=== PATIENT | female | born 1935 | race Caucasian/White ===

== ENCOUNTER → 2019-09-02 15:14 | Outpatient (CLI) | payer MEDICARE, MEDICAID, SELFPAY ==
[2019-09-02 15:21] LABS: Adenovirus F 40/41, stool Not Detected (NotDetected); Astrovirus Not Detected (NotDetected); Campylobacter Not Detected (NotDetected); Cryptosporidium Not Detected (NotDetected); Cyclospora Cayetanesis Not Detected (NotDetected); Entamoeba histolytica Not Detected (NotDetected); Enteroaggregative E coli Not Detected (NotDetected); Enteropathogenic E coli Not Detected (NotDetected); Enterotoxigenic E coli Not Detected (NotDetected); Giardia lamblia Not Detected (NotDetected); Norovirus Not Detected (NotDetected); Plesimonas Shigalloides, PCR Not Detected (NotDetected); Rotavirus A Not Detected (NotDetected); Salmonella, PCR Not Detected (NotDetected); Sapovirus Not Detected (NotDetected); Shiga-like toxin E coli Not Detected (NotDetected); Shigella Enterovasive E coli Not Detected (NotDetected); Vibrio Cholerae Not Detected (NotDetected); Vibrio, PCR Not Detected (NotDetected); Yersinia Entercolitica, PCR Not Detected (NotDetected)
[2019-09-02 15:52] LABS: Occult Blood,Stool Positive (Negative)
[2019-09-02 18:31] LABS: Clostridium Difficile A/B, PCR Detected (NotDetected)
== END ==
PROVIDERS: Visit Provider Emergency Medicine
DX: R19.7 Diarrhea, unspecified (principal); A04.72 Enterocolitis due to Clostridium difficile, not specified as recurrent; K92.1 Melena
CPT/HCPCS: 82272; 87507; G0328

== ENCOUNTER → 2020-04-09 15:51 | Outpatient (CLI) | payer MEDICARE, MEDICAID, SELFPAY ==
[2020-04-11 11:02] LABS: Covid-19 Nasal PCR Sendout P&C POSITIVE
== END ==
LOC: LAB 15:52 → LAB.DROPOF 15:52
PROVIDERS: Visit Provider Nurse Practitioner Family
DX: U07.1 COVID-19 (principal)
CPT/HCPCS: U0004

== ENCOUNTER 2020-07-05 15:20 | Emergency (ER) | payer MEDICARE, MEDICAID, SELFPAY ==
[2020-07-05 15:21] VITALS: BP 120/56; PULSE 81; RESP 16; TEMP 36.6; O2SAT 97; BMI 38.6
--- NOTE | 2020-07-05 15:23 | CT_ITS ---
PROCEDURE: CT CERVICAL SPINE WO CON CLINICAL INDICATION: trauma Neck injury with pain, contusion/abrasion or hematoma, cervical sprain/strain the COMPARISON: No exams were available for comparison TECHNIQUE: Axial images obtained with sagittal and coronal reformats. All CT scans at the facility use one or more dose reduction, viz: automated exposure control, ma/kV adjustment per patient size (including targeted exams where dose is matched to indication, i.e. head), or iterative reconstruction technique. Axial spiral CT scanning performed of the cervical spine beginning at the base of the skull and continuing to the upper T-spine. 3-D multiplanar reconstruction with 3-D manipulation of volumetric data set in image rendering was completed by the radiologist and/or technologist with the supervision of the radiologist on independent workstation. FINDINGS: Normal alignment. No acute fracture or dislocation. Mild multilevel cervical spondylosis. Cervical curvature convex right with mild contour clockwise rotation. C2-C3: Mild degenerative disc disease. C3-C4: Unremarkable. C4-C5: Mild degenerative disc disease with uncovertebral hypertrophy and bilateral lateral recess and foraminal narrowing. C5-C6: Degenerate disc disease with endplate hypertrophic changes with canal stenosis and bilateral foraminal narrowing. C6-C7: 3 mm anterolisthesis of C6. Uncovertebral and facet hypertrophy with bilateral foraminal narrowing and bilateral lateral recess narrowing. Anterior osteophytes are present. C7-T1: 3 mm anterolisthesis of C7 with mild degenerative disc disease Lung apices are clear. The right lobe of the thyroid gland is enlarged with heterogeneous density. There is scattered small nodes in the neck. Small amount fluid is present in the left mastoid sinus. IMPRESSION: Cervical spondylosis as described above. No acute fracture. Other nonacute findings as prescribed above Dictated by: Jesus Gagnon MD 07/05/2020 16:33 Jesus Gagnon MD in [facility] 07/05/2020 16:33
--- NOTE | 2020-07-05 15:23 | CT_ITS ---
PROCEDURE: CT HEAD/BRAIN WO CON CLINICAL INDICATION: head injury Head injury with headache/pain, contusion, abrasion or hematoma COMPARISON: No exams were available for comparison TECHNIQUE: Axial images obtained. All CT scans at the facility use one or more dose reduction, viz: automated exposure control, ma/kV adjustment per patient size (including targeted exams where dose is matched to indication, i.e. head), or iterative reconstruction technique. FINDINGS: No midline shift, mass effect, intracranial hemorrhage, hydrocephalus, or extra-axial fluid collection is evident. There is generalized atrophy with hypoattenuation of the periventricular white matter consistent with microangiopathic changes.. The calvarium has an unremarkable appearance. Small amount fluid in the left mastoid sinus. No sinus air-fluid level. IMPRESSION: No acute intracranial finding Dictated by: Jesus Gagnon MD 07/05/2020 16:28 Jesus Gagnon MD in [facility] 07/05/2020 16:28
--- NOTE | 2020-07-05 15:36 | HMH.EDGENADL ---
ED Disposition Clinical Impression: Closed head injury Disposition: Home, Self-Care Condition on Discharge: Good Instructions: Closed Head Injury Additional Instructions: Return for headache nausea vomiting or any other concerns within the next 8 hours otherwise follow-up with your primary care physician - Critical Care Critical Care Time: No Attestation: On , the high probability of a clinically significant, sudden or life threatening deterioration of the following system(s) required my full and direct attention, intervention and personal management. The time I documented below is in addition to time spent performing reported procedures but includes the following listed in this critical care notation. Medical Decision Making - Medical Records Medical records reviewed: Yes: I reviewed the patient's medical records. - Leonel Inquiry Pt receiving controlled substance: No Vital Signs: 07/05/20 15:21 Temperature 97.8 F Temperature Source Oral Pulse Rate [Right] 81 Respiratory Rate 16 Blood Pressure [Right Arm] 120/56 L Blood Pressure Mean [Right Arm] 77 02 Sat by Pulse Oximetry 97 Medical Decision Narrative: 85-year-old female with fall and head injury as above. She is awake and alert with normal neurological exam on initial exam. Due to age and mechanism she has indication for CT head and cervical spine per [facility] CT head and cervical spine rules. She is also on aspirin and I will counseling director her on the possibility of delayed bleeding should there be a negative scan. At initial evaluation she is hemodynamically stable and otherwise no indication for further traumatic work-up beyond head and neck imaging CT cervical spine negative. C-spine was cleared clinically. Plan to discharge with return precautions General Adult HPI - General Chief complaint: Head Injury Stated complaint: Fall Time Seen by Provider: 07/05/20 15:20 Mode of Arrival: EMS Limitations: No Limitations Description of Symptoms (Recalled from ER Triage Doc. by RN): PATIENT AND EMS REPORT PATIENT FELL BACK AND HIT HER HEAD IN THE SHOWER. PT DENIES ANY PAIN. PT DENIES ANY LOC. PT TAKES A DAILY ASPIRIN. PT ALERT AND OREINTED X4. PT HAS NO OBVIOUS INJURY ANYWHERE. - History of Present Illness HPI narrative: Presents after fall from standing. She says she was walking into the bathroom and fell backwards and hit the back of her head. She denies numbness weakness or tingling in her arms or legs. She does not have a headache currently. She is on a baby aspirin per report but no other blood thinners. No nausea vomiting no loss of consciousness. Onset (ago): hour(s) (1) - Related Data Home Medications Medication Instructions Recorded Confirmed acetaminophen 500 mg tablet 500 mg PO Q6H PRN 12/11/19 06/25/20 aspirin 81 mg tablet,delayed 81 mg PO DAILY 12/11/19 06/25/20 release atorvastatin 40 mg tablet 40 mg PO QHS 12/11/19 06/25/20 bisacodyl 10 mg rectal suppository 10 mg [place] DAILY PRN 12/11/19 06/25/20 clopidogrel 75 mg tablet 75 mg PO DAILY 12/11/19 06/25/20 docusate sodium 250 mg capsule 250 mg PO QHS 12/11/19 06/25/20 escitalopram oxalate 10 mg tablet 10 mg PO DAILY 12/11/19 06/25/20 furosemide 20 mg tablet 20 mg PO DAILY 12/11/19 06/25/20 ipratropium 0.5 mg-albuterol 3 mg 3 ml INHALATION Q6H PRN 12/11/19 06/25/20 (2.5 mg base)/3 mL nebulization soln lisinopril 2.5 mg tablet 2.5 mg PO DAILY 12/11/19 06/25/20 melatonin 3 mg capsule 3 mg PO HS PRN 12/11/19 06/25/20 metoprolol tartrate 50 mg tablet 25 mg PO DAILY tab 12/11/19 06/25/20 ondansetron HCl 4 mg tablet 4 mg PO Q6H 12/11/19 06/25/20 ropinirole 2 mg tablet,extended 2 mg PO DAILY 12/11/19 06/25/20 release 24 hr Previous Rx's Medication Instructions Recorded diazepam 5 mg tablet 2.5 mg PO BID #30 tab 03/27/20 gabapentin 100 mg capsule 100 mg PO BID #60 cap 03/27/20 hydrocodone 5 mg-acetaminophen 325 1 tab PO BID #60 tab 06/28/20 mg tablet Allergies All
--- NOTE | 2020-07-05 15:59 | PC.NURSE ---
pt going to rad
--- NOTE | 2020-07-05 16:15 | PC.NURSE ---
pt returning from rad.
[2020-07-05 17:31] VITALS: BP 125/46
--- NOTE | 2020-07-05 18:19 | PC.NURSE ---
GAVE REPORT TO [facility] NURSE AND REPORTED PATIENT IS READY FOR RETURN TO FACILITY. [facility] NURSE REPORTED THEY PATIENT COMES BACK EMS
[2020-07-05 19:18] VITALS: BP 134/71; PULSE 76; RESP 16; TEMP 36.6; O2SAT 98
== END 2020-07-05 18:39 | disposition home or self-care (01) ==
PROVIDERS: Emergency Provider Emergency Medicine; PCP Emergency Medicine
DX: S09.90XA Unspecified injury of head, initial encounter (principal); W01.0XXA Fall on same level from slipping, tripping and stumbling without subsequent striking against object, initial encounter; Y92.013 Bedroom of single-family (private) house as the place of occurrence of the external cause; K21.9 Gastro-esophageal reflux disease without esophagitis; J44.9 Chronic obstructive pulmonary disease, unspecified; E78.5 Hyperlipidemia, unspecified; I10 Essential (primary) hypertension; I25.2 Old myocardial infarction; F41.9 Anxiety disorder, unspecified; Z79.899 Other long term (current) drug therapy; Z88.0 Allergy status to penicillin; Z88.8 Allergy status to other drugs, medicaments and biological substances
CPT/HCPCS: 70450; 72125; 99283

== ENCOUNTER 2020-12-04 22:59 | Emergency (ER) | payer MEDICARE, MEDICAID, SELFPAY ==
[2020-12-04 22:49] VITALS: BP 151/64; PULSE 56; RESP 16; TEMP 36.7; O2SAT 99; BMI 23.4
--- NOTE | 2020-12-04 23:00 | CT_ITS ---
PROCEDURE INFORMATION: Exam: CT Head Without Contrast Exam date and time: 12/04/2020 11:00 PM Age: 85 years old Clinical indication: Injury or trauma; Laceration; Without residual foreign body; Scalp; Patient HX: Fall, lac to top left of head TECHNIQUE: Imaging protocol: Computed tomography of the head without contrast. 3D rendering (Not supervised by radiologist): MIP and/or 3D reconstructed images were created by the technologist. Radiation optimization: All CT scans at this facility use at least one of these dose optimization techniques: automated exposure control; mA and/or kV adjustment per patient size (includes targeted exams where dose is matched to clinical indication); or iterative reconstruction. COMPARISON: CT HEAD/BRAIN WO CON 07/05/2020 4:02 PM FINDINGS: Brain: Decreased attenuation of the supratentorial white matter is likely secondary to chronic microvascular ischemia. No acute intracranial hemorrhage. Cerebral ventricles: Ventricular and subarachnoid spaces are age appropriate. Paranasal sinuses: Visualized sinuses are unremarkable. No fluid levels. Mastoid air cells: Visualized mastoid air cells are well aerated. Vasculature: Intracranial vascular calcification. Bones/joints: Hyperostosis frontalis interna. No acute calvarial fracture. Soft tissues: Superior scalp soft tissue injury. IMPRESSION: No acute intracranial abnormality.
--- NOTE | 2020-12-04 23:00 | CT_ITS ---
PROCEDURE INFORMATION: Exam: CT Cervical Spine Without Contrast Exam date and time: 12/04/2020 11:00 PM Age: 85 years old Clinical indication: Injury or trauma; Fall; Blunt trauma TECHNIQUE: Imaging protocol: Computed tomography images of the cervical spine without contrast. Radiation optimization: All CT scans at this facility use at least one of these dose optimization techniques: automated exposure control; mA and/or kV adjustment per patient size (includes targeted exams where dose is matched to clinical indication); or iterative reconstruction. COMPARISON: CT CERVICAL SPINE WO CON 07/05/2020 4:02 PM FINDINGS: Bones/joints: [id number] dextroconvex curvature. Non-specific straightening. Trace anterolisthesis of C6 on C7 and C7 on T1. Vertebral body heights are preserved. Moderate degenerative change about the dens. Moderate prevertebral osteophytosis. There are bilateral facet joint degenerative changes greater on the left. No acute cervical spine fracture. Discs/Spinal canal/Neural foramina: No definite high-grade central canal stenosis within limitations of technique. Thyroid: Enlarged thyroid with ill-defined nodules, ultrasound may be considered. Lungs: Lung apices are normal. Pleural spaces: No visible pneumothorax. Vasculature: Vascular calcification. Soft tissues: Unremarkable. IMPRESSION: No acute cervical spine fracture. COMMENTS: Consistent with the [place] [employer]'s Incidental Findings Committee white paper (J Am Mary Radiol 2015): In patients aged 35 years and older with an incidental thyroid nodule equal to or greater than 1.[address], MRI or extrathyroidal US, further evaluation with dedicated thyroid US is recommended for patients with normal life expectancy and without comorbidities. For smaller nodules without suspicious features, no further evaluation or follow up is recommended.
--- NOTE | 2020-12-05 00:01 | XR_ITS ---
PROCEDURE INFORMATION: Exam: XR Chest Exam date and time: 12/05/2020 12:01 AM Age: 85 years old Clinical indication: Injury or trauma; Fall; Blunt trauma (contusions or hematomas) TECHNIQUE: Imaging protocol: XR of the chest. Views: 1 view. COMPARISON: CT CERVICAL SPINE WO CON 12/05/2020 12:10 AM FINDINGS: Lungs: Mild interstitial pulmonary edema. Consolidative opacity in the lower right lung, compatible with subsegmental atelectasis vs infiltrate. Few scattered calcified pulmonary granulomata, compatible with chronic sequelae of prior granulomatous disease. Pleural spaces: No pleural effusion. No pneumothorax. Heart/Mediastinum: Cardiomediastinal silouhette is within normal limits. Probable perihilar calcified lymph nodes. Diaphragm: Elevated right hemidiaphragm. Bones/joints: Severe degenerative changes in the bilateral shoulder joints. Soft tissues: Unremarkable. Other findings: Nodular opacities projecting over the bilateral lungs. IMPRESSION: 1. Mild interstitial pulmonary edema. 2. Consolidative opacity in the lower right lung, compatible with subsegmental atelectasis vs infiltrate. 3. Nodular opacities projecting over the bilateral lungs, indeterminate for pulmonary nodules versus summation artifact.
--- NOTE | 2020-12-05 00:01 | XR_ITS ---
PROCEDURE INFORMATION: Exam: XR Pelvis Exam date and time: 12/05/2020 12:01 AM Age: 85 years old Clinical indication: Injury or trauma; Fall; Blunt trauma (contusions or hematomas); Bilateral; Pelvic region; Prior surgery TECHNIQUE: Imaging protocol: XR pelvis. Views: 1 or 2 view. COMPARISON: No relevant prior studies available. FINDINGS: Limitations: Poorly mineralized bones and extensive posttraumatic degenerative changes throughout the pelvis limits sensitivity in detection of acute fractures. Bones/joints: Postoperative changes of prior bilateral hip fixation and left hip fusion. Hardware appears intact without evidence of perihardware fracture. Extensive degenerative changes in the left sacroiliac joint and right hip, compatible chronic sequelae of prior trauma. Soft tissues: Unremarkable. IMPRESSION: 1. No definite evidence of acute fracture within the limits of this exam. 2. Additional non-acute ancillary findings, as detailed above.
--- NOTE | 2020-12-05 00:20 | HMH.EDFALL ---
ED Disposition Clinical Impression: Fall Qualifiers: Encounter type: initial encounter Qualified Code(s): W19.XXXA - Unspecified fall, initial encounter Scalp laceration Qualifiers: Encounter type: initial encounter Qualified Code(s): S01.01XA - Laceration without foreign body of scalp, initial encounter Disposition: Home, Self-Care Condition on Discharge: Good Instructions: How to Prevent Falls Additional Instructions: sutures out 10 days Referrals: Johnny Marion MD [Primary Care Provider] - - Critical Care Critical Care Time: No Attestation: On 12/04/20, the high probability of a clinically significant, sudden or life threatening deterioration of the following system(s) required my full and direct attention, intervention and personal management. The time I documented below is in addition to time spent performing reported procedures but includes the following listed in this critical care notation. Medical Decision Making - Medical Records Medical records reviewed: Yes: I reviewed the patient's medical records. - Leonel Inquiry Pt receiving controlled substance: No Vital Signs: 12/04/20 22:49 Temperature 98.0 F Temperature Source Oral Pulse Rate [Right] 56 L Respiratory Rate 16 Blood Pressure [Right Arm] 151/64 H Blood Pressure Mean [Right Arm] 93 02 Sat by Pulse Oximetry 99 - Radiology Data #1 Image(s): Chest, Pelvis Image Reviewed: Yes I have reviewed radiologist's interpretation Preliminary Findings: No Fracture Seen - CT Data CT Scan: Head, C-Spine Time Received: 02:[address] Reviewed: Yes: I have viewed the radiologist's interpretation Preliminary Findings: No Fracture Seen Medical Decision Narrative: stable exam and xrays and will return to [facility] Fall HPI - General Chief Complaint: Fall Stated Complaint: fall Time Seen by Provider: 12/04/20 23:10 Mode of Arrival: EMS Source of Information: Patient, EMS, Medical Record Limitations: No Limitations Description of Symptoms (Recalled from ER Triage Doc. by RN): assisted reports pt was walking to bathroom and pt states he legs gave out. pt has laceration to back of head - History of Present Illness HPI Narrative: fell at [facility] with head injury and lac - pt w/o specific c/o MD complaint: fall Onset (ago): hour(s) Fall from: wheelchair Fall witnessed: no Place fall occurred: assisted/SNF Loss of consciousness: none Symptoms prior to fall: none Context: tripped/slipped, history of frequent falls Location of injury: head Severity: moderate Associated symptoms (after fall): denies - Related Data Home Medications Medication Instructions Recorded Confirmed acetaminophen 500 mg tablet 500 mg PO Q6H PRN 12/11/19 06/25/20 aspirin 81 mg tablet,delayed 81 mg PO DAILY 12/11/19 06/25/20 release atorvastatin 40 mg tablet 40 mg PO QHS 12/11/19 06/25/20 bisacodyl 10 mg rectal suppository 10 mg [place] DAILY PRN 12/11/19 06/25/20 clopidogrel 75 mg tablet 75 mg PO DAILY 12/11/19 06/25/20 docusate sodium 250 mg capsule 250 mg PO QHS 12/11/19 06/25/20 escitalopram oxalate 10 mg tablet 10 mg PO DAILY 12/11/19 06/25/20 furosemide 20 mg tablet 20 mg PO DAILY 12/11/19 06/25/20 ipratropium 0.5 mg-albuterol 3 mg 3 ml INHALATION Q6H PRN 12/11/19 06/25/20 (2.5 mg base)/3 mL nebulization soln lisinopril 2.5 mg tablet 2.5 mg PO DAILY 12/11/19 06/25/20 melatonin 3 mg capsule 3 mg PO HS PRN 12/11/19 06/25/20 metoprolol tartrate 50 mg tablet 25 mg PO DAILY tab 12/11/19 06/25/20 ondansetron HCl 4 mg tablet 4 mg PO Q6H 12/11/19 06/25/20 ropinirole 2 mg tablet,extended 2 mg PO DAILY 12/11/19 06/25/20 release 24 hr Previous Rx's Medication Instructions Recorded diazepam 5 mg tablet 2.5 mg PO BID #30 tab 09/12/20 gabapentin 100 mg capsule 100 mg PO BID #60 cap 09/12/20 hydrocodone 5 mg-acetaminophen 325 1 tab PO BID #60 tab 11/22/20 mg tablet Allergies Allergy/AdvReac Type Severity Reaction Status Date / Time jessica
[2020-12-05 02:40] VITALS: BP 146/60; PULSE 60; RESP 18; TEMP 36.7; O2SAT 97
--- NOTE | 2020-12-05 02:42 | PC.NURSE ---
called Marie for transport. Gave report to [facility]
== END 2020-12-05 03:04 | disposition home or self-care (01) ==
PROVIDERS: Emergency Provider Emergency Medicine; PCP Emergency Medicine
DX: S01.01XA Laceration without foreign body of scalp, initial encounter (principal); W01.0XXA Fall on same level from slipping, tripping and stumbling without subsequent striking against object, initial encounter; Y92.129 Unspecified place in nursing home as the place of occurrence of the external cause; J44.9 Chronic obstructive pulmonary disease, unspecified; I50.9 Heart failure, unspecified; I25.2 Old myocardial infarction; F41.9 Anxiety disorder, unspecified; I10 Essential (primary) hypertension; E78.5 Hyperlipidemia, unspecified; K21.9 Gastro-esophageal reflux disease without esophagitis
CPT/HCPCS: 12002; 70450; 71045; 72125; 72170; 99283

== ENCOUNTER 2020-12-09 16:50 | Inpatient (IN) | payer MEDICAID, MEDICARE, SELFPAY ==
[2020-12-09 16:50] VITALS: BP 152/85; PULSE 96; RESP 18; TEMP 37.3; O2SAT 97; BMI 23.3
--- NOTE | 2020-12-09 17:04 | ECG_ITS ---
APPROVED REPORT Exam: Resting ECG HR:99 bpm ECG Measurements Heart Rate 99 AXES AZ 138 P 53 QRSd 136 QRS -1 QT 380 T 132 QTc 487 Conclusion Sinus rhythm with premature atrial complexes Left bundle branch block Abnormal ECG Electronically signed by : Robin Carvajal MD 12/11/2020 17:39:04
--- NOTE | 2020-12-09 17:04 | XR_ITS ---
PROCEDURE INFORMATION: Exam: XR Chest Exam date and time: 12/09/2020 5:04 PM Age: 85 years old Clinical indication: Sternal or substernal pain; Patient HX: Chest pain work up. TECHNIQUE: Imaging protocol: XR of the chest. Portable AP upright exam 5:20 p.m. Views: 1 view. COMPARISON: CR XR CHEST PORTABLE 12/05/2020 12:21 AM FINDINGS: Lungs: Persistent elevated right diaphragm with right lower pulmonary volume loss. Mild central perihilar and lower lobe interstitial prominence, similar to prior exam, but no definite consolidation. There is a vague, persistent ovoid 2 cm opacity projected over the medial right lung apex, which could be an underlying mass, pneumonia or due to summation shadows. Pleural spaces: Unremarkable. No significant pleural effusion. No pneumothorax. Heart/Mediastinum: The cardiac silhouette is normal. Vasculature: Calcified plaque in the aortic arch. Bones/joints: Chronic advanced arthritic changes of the shoulder joints with loose bodies or dystrophic soft tissue calcifications. There are spinal degenerative changes, with multilevel disc narrrowing and spondylosis. Osteopenia. Soft tissues: Right upper quadrant abdominal surgical clips, correlate for history of cholecystectomy. 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 IMPRESSION: 1. Stable exam compared with 12/09/2020. 2. Persistent elevated right diaphragm with right lower pulmonary volume loss. 3. Nonspecific central and lower pulmonary interstitial prominence, which could chronic disease versus vascular congestion or bronchitis and pneumonia. 4. Persistent vague nodular density projected over the medial right lung apex, which could be underlying mass, pneumonia or benign summation shadow. 5. Additional nonemergency and chronic findings as above.
[2020-12-09 17:14] LABS: Basophils % 0.2 % (0.1-2.0); Eosinophils # 0.2 K/mm3 (0.0-0.4); Eosinophils % 0.8 % (0.1-12.0); Hematocrit 41.5 % (37.0-47.0); Lymphocytes # 2.5 K/mm3 (0.7-4.5); Lymphocytes % 11.1 % (10-50); Mean Corpuscular HGB Conc 31.3 g/dL (31.8-35.4); Mean Corpuscular Hemoglobin 29.4 pg (27.0-31.2); Mean Corpuscular Volume 93.9 fl (81-99); Mean Platelet Volume 8.6 fl (7.4-10.4); Monocytes # 0.3 K/mm3 (0.1-1.0); Monocytes % 1.2 % (1.7-9.3); Neutrophils # 19.4 K/mm3 (1.8-7.8); Neutrophils % 86.7 % (37.0-80.0); Platelet Count 361 K/mm3 (142-424); Red Blood Count 4.42 M/mm3 (4.20-5.40); Red Cell Distribution Width 13.9 % (11.5-17.5); White Blood Count 22.3 K/mm3 (4.8-10.8)
[2020-12-09 17:15] LABS: Chloride 98 mmol/L (98-107); Potassium 4.7 mmoL/L (3.5-5.1); Sodium 140 mmol/L (136-145)
[2020-12-09 17:18] LABS: Anion Gap 17.7 mEq/L (5-15); Blood Urea Nitrogen 20 mg/dl (7-17); Calcium 9.5 mg/dl (8.4-10.2); Carbon Dioxide 29 mmol/L (22.0-30.0); Creatinine Clearance Estimated 41 mL/min (50-200); Estimated Glomerular Filt Rate 95 ml/min (>60); GFR (African American) 115 ML/MIN (>60); Glucose 104 mg/dl (74-100)
[2020-12-09 17:21] LABS: MANUAL DIFFERENTIAL MANUAL DIFFERENTIAL (MANUAL DIFF)
[2020-12-09 17:30] LABS: Troponin I 0.02 ng/ml (0.00-0.034)
[2020-12-09 18:07] LABS: Eosinophils % 1 % (0-3); Lymphocytes % 11 % (10-50); Monocytes % 7 % (2-9); Neutrophils % 81 % (42-76); Total Cells Counted 100
[2020-12-09 18:08] LABS: Anisocytosis 1+; Hypochromasia 1+; Platelet Estimate Normal
[2020-12-09 20:00] VITALS: PULSE 90
[2020-12-09 20:13] LABS: Coronavirus 19, PCR Not Detected (NotDetected); Influenza A, PCR Not Detected (NotDetected); Influenza B, PCR Not Detected (NotDetected)
[2020-12-09 20:34] LABS: Lactic Acid 1.4 mmol/L (0.7-2.1)
[2020-12-09 20:47] LABS: Troponin I 0.04 ng/ml (0.00-0.034)
--- NOTE | 2020-12-09 21:06 | HMH.EDGENADL ---
ED Disposition Clinical Impression: Healthcare-associated pneumonia Vomiting Qualifiers: Vomiting type: bilious vomiting Nausea presence: with nausea Qualified Code(s): R11.14 - Bilious vomiting Disposition: Admitted As Inpatient Condition on Discharge: Fair - Critical Care Critical Care Time: No Attestation: On 12/09/20, the high probability of a clinically significant, sudden or life threatening deterioration of the following system(s) required my full and direct attention, intervention and personal management. The time I documented below is in addition to time spent performing reported procedures but includes the following listed in this critical care notation. Medical Decision Making - Medical Records Medical records reviewed: Yes: I reviewed the patient's medical records. - Leonel Inquiry Pt receiving controlled substance: No Vital Signs: 12/09/20 16:50 Temperature 99.1 F Temperature Source Oral Pulse Rate [Right Radial] 96 H Respiratory Rate 18 Blood Pressure [Right Arm] 152/85 H Blood Pressure Mean [Right Arm] 107 Blood Pressure Source [Right Arm] Automatic Cuff Blood Pressure Position [Right Arm] Sitting 02 Sat by Pulse Oximetry 97 Oxygen Delivery Method Nasal Cannula Oxygen Flow Rate (LPM) 2 - Lab Data Lab Results 12/09/20 16:30: WBC 22.3 H*, RBC 4.42, Hgb 13.0, Hct 41.5, MCV 93.9, MCH 29.4, MCHC 31.3 L, RDW 13.9, Plt Count 361, MPV 8.6, Neut % (Auto) 86.7 H, Lymph % (Auto) 11.1, Shelby % (Auto) 1.2 L, Eos % (Auto) 0.8, Baso % (Auto) 0.2, Neut # (Auto) 19.4 H, Lymph # (Auto) 2.5, [place] # (Auto) 0.3, Eos # (Auto) 0.2, Baso # (Auto) 0.0, Total Counted 100, Neutrophils % (Manual) 81 H, Lymphocytes % (Manual) 11, Monocytes % (Manual) 7, Eosinophils % (Manual) 1, Platelet Estimate Normal, Hypochromasia 1+, Anisocytosis 1+ 12/09/20 16:30: Sodium 140, Potassium 4.7, Chloride 98, Carbon Dioxide 29, Anion Gap 17.7 H, BUN 20 H, Creatinine 0.60, Estimated Creat Clear 41, Estimated GFR 95, Est GFR ( Amer) 115, Glucose 104 H, Calcium 9.5, Troponin I 0.02 12/09/20 20:00: SARS-CoV-2 (PCR) Not detected, Influenza A Untype (PCR) Not detected, Influenza Type B (PCR) Not detected 12/09/20 20:10: Troponin I 0.04 H 12/09/20 20:10: Lactate 1.4 Result diagrams: 12/09/20 16:30 12/09/20 16:30 Orders (Tests/Meds): ED MEDICATIONS Generic Name Dose Route Start Last Admin Trade Name Freq PRN Reason Stop Dose Admin Cefepime HCl 2 gm/ Sodium 100 mls @ 200 mls/hr 12/09/20 21:00 Chloride IV 12/23/20 20:59 Q8H SRINIVASA Metronidazole 500 mg in 100 mls @ 100 mls/hr 12/09/20 21:00 Flagyl 500mg/100ml Ivpb IV 12/23/20 20:59 Q8H SRINIVASA Vancomycin HCl 1,250 mg/ 250 mls @ 125 mls/hr 12/09/20 20:58 Sodium Chloride IV 12/09/20 22:57 ONCE ONE Discontinued Medications Generic Name Dose Route Start Last Admin Trade Name Freq PRN Reason Stop Dose Admin Azithromycin 500 mg/ Sodium 250 mls @ 250 mls/hr 12/09/20 20:15 Chloride IV 12/23/20 20:14 Q8H SRINIVASA Ceftriaxone Sodium 1 gm/ 50 mls @ 100 mls/hr 12/09/20 20:15 12/09/20 20:37 Sodium Chloride IV 12/23/20 20:14 100 mls/hr Q12H SRINIVASA Administration ORDERS Category Date Time Status Troponin I Q3H Lab 12/09/20 23:15 Ordered Urinalysis and Microscopic Stat Lab 12/09/20 19:58 Ordered Blood Culture Stat Micro 12/09/20 20:10 Received Medical Decision Narrative: 85-year-old female who presents to the emergency department with complaints of chest pain at nursing facility, now with complaints of shortness of breath and vomiting in our facility. Patient was evaluated with full panel of labs including CBC, CMP, troponin, EKG, and chest x-ray. White count was 22, no anemia or thrombocytopenia, small anion gap, no electrolyte abnormalities, no lactic acidosis. Initial troponin is 0.02. Initial EKG shows no evidence of ST elevations or depressions, no arrhythmias, or other severe findings. Second troponin resulted a
[2020-12-09 21:07] VITALS: BMI 25.1
[2020-12-09 21:43] VITALS: BP 141/72; PULSE 89; RESP 18; TEMP 37.3; O2SAT 97
--- NOTE | 2020-12-09 22:19 | PC.NURSE ---
patient up to floor via stretcher.
[2020-12-09 22:35] VITALS: BP 124/72; PULSE 94; RESP 22; TEMP 38.1; O2SAT 96
--- NOTE | 2020-12-09 22:40 | PC.NURSE ---
Verified DNR status with pts daughter/POA Joslyn Osullivan over phone at this time by this RN and verified by Melina Sadler RN.
[2020-12-09 23:53] LABS: Troponin I 0.07 ng/ml (0.00-0.034)
[2020-12-10] VITALS (7 sets, daily range): BP systolic 103–133; BP diastolic 53–69; PULSE 70–102; RESP 16–20; TEMP 36.8–37; O2SAT 93–100
--- NOTE | 2020-12-10 04:02 | PC.NURSE ---
Pt arrived to floor at 2218. Pt is only oriented to self. She continuously asks where she is and why she is here. Pt was unable to ambulate to bed from stretcher when arrived to floor. She is incontinent and is wearing a brief. Skin C/D/I. Pt has LR infusing @50ml/hr. DNR status verified over phone with POA and is on chart. Pt currently resting in bed. Bed alarm on. CB in reach. Will continue to monitor.
[2020-12-10 07:08] LABS: Basophils % 0.1 % (0.1-2.0); Eosinophils % 0.1 % (0.1-12.0); Hematocrit 32.2 % (37.0-47.0); Lymphocytes # 1.8 K/mm3 (0.7-4.5); Lymphocytes % 8.4 % (10-50); Mean Corpuscular HGB Conc 31.4 g/dL (31.8-35.4); Mean Corpuscular Hemoglobin 29.3 pg (27.0-31.2); Mean Corpuscular Volume 93.2 fl (81-99); Mean Platelet Volume 9.2 fl (7.4-10.4); Monocytes # 0.7 K/mm3 (0.1-1.0); Monocytes % 3.3 % (1.7-9.3); Neutrophils # 18.5 K/mm3 (1.8-7.8); Neutrophils % 88.1 % (37.0-80.0); Platelet Count 219 K/mm3 (142-424); Red Blood Count 3.45 M/mm3 (4.20-5.40)
[2020-12-10 07:32] LABS: MANUAL DIFFERENTIAL MANUAL DIFFERENTIAL (MANUAL DIFF)
--- NOTE | 2020-12-10 07:38 | P.CONPHA_ITS ---
[facility] Pharmacy VTE Monitoring - Patient Demographics Admission date: 12/09/20 Report Date: 12/10/20 Time: 07:38 Allergies/Adverse Reactions: Patient Allergies alendronate sodium [From Fosamax] Allergy (Unknown, Verified 06/25/20 17:55) NSAIDS (Non-Steroidal Anti-Inflamma Allergy (Unknown, Verified 06/25/20 17:55) Penicillins Allergy (Unknown, Verified 06/25/20 17:55) Height: 1.65 m Weight: 68.492 kg Patient Problems: Current Active Problems Vomiting (Acute) Healthcare-associated pneumonia (Acute) - VTE Risk Labs: VTE Related Lab Results Hgb 13.0 g/dL (12.2-16.2) 12/09/20 16:30 Hct 32.2 % (37.0-47.0) L 12/10/20 06:19 Plt Count 219 K/mm3 (142-424) D 12/10/20 06:19 BUN 20 mg/dl (7-17) H 12/09/20 16:30 Creatinine 0.60 mg/dl (0.52-1.04) 12/09/20 16:30 Estimated Creat Clear 41 mL/min (50-200) 12/09/20 16:30 VTE Score: 7 VTE Risk Level: Moderate Risk - Prophylaxis VTE Prophylaxis Ordered?: Yes Types of VTE Prophylaxis: TEDS Knee High Location of Applied Device: Bilateral Lower Extremeties
[2020-12-10 07:39] LABS: Hemoglobin 10.1 g/dL (12.2-16.2)
[2020-12-10 08:06] LABS: Anion Gap 12.9 mEq/L (5-15); Blood Urea Nitrogen 19 mg/dl (7-17); Calcium 8.5 mg/dl (8.4-10.2); Carbon Dioxide 27 mmol/L (22.0-30.0); Chloride 104 mmol/L (98-107); Creatinine Clearance Estimated 44 mL/min (50-200); Estimated Glomerular Filt Rate 80 ml/min (>60); GFR (African American) 96 ML/MIN (>60); Glucose 101 mg/dl (74-100); Magnesium 1.9 mg/dl (1.6-2.3); Potassium 3.9 mmoL/L (3.5-5.1); Sodium 140 mmol/L (136-145)
--- NOTE | 2020-12-10 08:11 | HMH.PHACONS ---
- Pharmacy Consult Date: 12/10/20 Time: 08:11 Referring provider: DR. GARCIA Reason for Consult:: Age: 85 yo Serum creatinine: 1 mg/dL Height: 65.0 Inches Weight (kg): 68.5 Assessment: IBW (kg): 57.00 Dosing wt(kg): 68.5 Estimated Creatinine clearance (ml/min): 37.0 CRCL method: Cockcroft and Gault using ibw(default). Drug selected: Vancomycin Loading dose (mg): 0 Vd (liters): 54.8 (factor used: 0.8 L/kg) Oniel (hr-1): 0.035 Half life (hrs): 19.80 Recommended dose: 1000 mg Interval: 24 hrs Infusion time (hrs): 2.0 Predicted peak (mcg/mL): 31.0 Predicted trough (mcg/mL): 14.35 Total body weight is being used for vancomycin dosing. Recommendations: Give Vancomycin 1000 mg q 24 hrs with an expected Cpeak of 31.0 mcg/ml and an expected Ctrough of 14.35 mcg/ml ----Vanco only - ignore for aminoglycosides----- CLvanco= 1.92 L/hr AUC 0-24 /ORALIA Data: ORALIA 0.5 mcg/mL: AUC/ORALIA: 1041.7 ORALIA 1.0 mcg/mL: AUC/ORALIA: 520.8 --------- ORALIA 1.5 mcg/mL: AUC/ORALIA: 347.2 ORALIA 2.0 mcg/mL: AUC/ORALIA: 260.4 Thank you for the consult, will continue to follow. Allergies and ADEs:: Allergies Allergy/AdvReac Type Severity Reaction Status Date / Time alendronate sodium Allergy Unknown Verified 06/25/20 17:55 [From Fosamax] NSAIDS (Non-Steroidal Allergy Unknown Verified 06/25/20 17:55 Anti-Inflamma Penicillins Allergy Unknown Verified 06/25/20 17:55 Home Medications:: Home Medications Medication Instructions Recorded Confirmed Type acetaminophen 500 mg tablet 500 mg PO Q6H PRN 12/11/19 12/09/20 History aspirin 81 mg tablet,delayed 81 mg PO DAILY 12/11/19 12/09/20 History release atorvastatin 40 mg tablet 40 mg PO QHS 12/11/19 12/09/20 History bisacodyl 10 mg rectal suppository 10 mg AK DAILY PRN MDD constipation 12/11/19 12/09/20 History clopidogrel 75 mg tablet 75 mg PO DAILY 12/11/19 12/09/20 History docusate sodium 250 mg capsule 250 mg PO QHS 12/11/19 12/09/20 History escitalopram oxalate 10 mg tablet 10 mg PO DAILY 12/11/19 12/09/20 History furosemide 20 mg tablet 20 mg PO DAILY 12/11/19 12/09/20 History ipratropium 0.5 mg-albuterol 3 mg 3 ml INHALATION Q6H PRN 12/11/19 12/09/20 History (2.5 mg base)/3 mL nebulization soln lisinopril 2.5 mg tablet 2.5 mg PO DAILY 12/11/19 12/09/20 History melatonin 3 mg capsule 3 mg PO HS PRN 12/11/19 12/09/20 History metoprolol tartrate 50 mg tablet 25 mg PO DAILY tab 12/11/19 12/09/20 History ondansetron HCl 4 mg tablet 4 mg PO Q6H 12/11/19 12/09/20 History ropinirole 2 mg tablet,extended 2 mg PO DAILY 12/11/19 12/09/20 History release 24 hr Gabapentin [Gabapentin 100mg Cap] 100 mg PO BID 12/09/20 12/09/20 History Hydrocod/Acet 5/325 mg [[place] 1 tab PO BID 12/09/20 12/09/20 History 5/325mg tablet] diazePAM [Valium 5mg tablets] 2.5 mg PO BID 12/09/20 12/09/20 History Height: 1.65 m Weight: 68.492 kg Laboratory Results:: Laboratory Results - last 24 hr 12/09/20 16:30: WBC 22.3 H*, RBC 4.42, Hgb 13.0, Hct 41.5, MCV 93.9, MCH 29.4, MCHC 31.3 L, RDW 13.9, Plt Count 361, MPV 8.6, Neut % (Auto) 86.7 H, Lymph % (Auto) 11.1, [place] % (Auto) 1.2 L, Eos % (Auto) 0.8, Baso % (Auto) 0.2, Neut # (Auto) 19.4 H, Lymph # (Auto) 2.5, [place] # (Auto) 0.3, Eos # (Auto) 0.2, Baso # (Auto) 0.0, Total Counted 100, Neutrophils % (Manual) 81 H, Lymphocytes % (Manual) 11, Monocytes % (Manual) 7, Eosinophils % (Manual) 1, Platelet Estimate Normal, Hypochromasia 1+, Anisocytosis 1+ 12/09/20 16:30: Sodium 140, Potassium 4.7, Chloride 98, Carbon Dioxide 29, Anion Gap 17.7 H, BUN 20 H, Creatinine 0.60, Estimated Creat Clear 41, Estimated GFR 95, Est GFR ( Amer) 115, Glucose 104 H, Calcium 9.5, Troponin I 0.02 12/09/20 20:00: SARS-CoV-2 (PCR) Not detected, Influenza A Untype (PCR) Not detected, Infl
[2020-12-10 08:56] LABS: Lymphocytes % 10 % (10-50); Monocytes % 6 % (2-9); Neutrophils % 84 % (42-76); Total Cells Counted 100
[2020-12-10 08:57] LABS: Platelet Estimate Normal; RBC Morphology Normal
--- NOTE | 2020-12-10 09:34 | HMH.PHAINT ---
MEDICATION RECONCILIATION COMPLETED ON PATIENT USING [facility] FROM [facility]. -ALVAREZ WALKER, JIMMIED
--- NOTE | 2020-12-10 09:59 | SW/DCPLANNER ---
This patient currently resides at [facility]. I spoke with Malou from [facility] and she stated that patient is [facility] level of care. I will continue to follow up with and Malou until patient is medically stable for discharge. Discharge date is unknown at this time.
--- NOTE | 2020-12-10 12:35 | HMH.HP ---
*Admission Date: 12/09/20 *Chief complaint: sob *History of present illness: this patient presented to the ed -85-year-old female with past medical history of hypertension, hyperlipidemia, and COPD on baseline 2 L oxygen who presents to the emergency department brought in by EMS from [facility] due to complaints of chest pain, chest discomfort, and shortness of breath prior to arrival. Patient states she has also been vomiting today. Minimal history is able to be obtained from the patient as she is demented. However, she has no current complaints when I examined her aside from vomiting today. She has stable vital signs and is conversational, pleasantly confused. 5-year-old female who presents to the emergency department with complaints of chest pain at nursing facility, now with complaints of shortness of breath and vomiting in our facility. Patient was evaluated with full panel of labs including CBC, CMP, troponin, EKG, and chest x-ray. White count was 22, no anemia or thrombocytopenia, small anion gap, no electrolyte abnormalities, no lactic acidosis. Initial troponin is 0.02. Initial EKG shows no evidence of ST elevations or depressions, no arrhythmias, or other severe findings. Second troponin resulted at 0.04, patient continued to appear comfortable and denying any symptoms. Nausea had resolved since arriving to emergency department. Chest x-ray showed evidence of worsening right lower lobe infiltrate that was not present on x-ray from 9?15. Given these findings and leukocytosis, as well as patient's age, mild uremia, and confusion she will be admitted to the hospital for healthcare associated pneumonia. Patient was started on healthcare associated pneumonia medication including IV bank, cefepime, and Flagyl. A repeat EKG and third troponin were ordered after patient was admitted to the hospital. These will be followed up by the admitting team, or nighttime ED provider if she is still here. Patient's urinalysis was also pending resolution at the time of admission. She remained hemodynamically stable during her emergency department stay. Per patient's [facility] chart, she is a DNR so will be admitted under this CODE STATUS. pt admitted for eval and treatment [facility] History I have reviewed the patient's past medical history: Yes Medical History: Reports:: Anxiety, Congestive Heart Failure, Chronic Obstructive Pulmonary Disease (COPD), Gastroesophageal Reflux Disease(GERD), Hyperlipidemia, Hypertension, Myocardial Infarction Denies:: Diabetes Mellitus Type 1 *Have you ever received a pneumonia vaccine?: No *Have you received a flu vaccine this season?: No Other Medical History: Reports: Arthritis - *Social History Smoking Status: Unknown if ever smoked Alcohol Intake: never *Occupational Status:: retired Housing: [facility] *Travel in the last 8 weeks: None - Psychiatric History Pschychiatric History:: Reports:: Anxiety Family Hx:: Unable to obtain Review of Systems - Review of Systems Review of systems:: pertinent systems reviewed and negative unless documented below - Constitutional Denies fever(s) - Eyes Denies change in vision - ENT Denies sore throat - *Cardiovascular Reports shortness of breath - *Respiratory Reports cough, Reports shortness of breath - *Gastrointestinal Denies abdominal pain - *Genitourinary Denies blood in urine - Integumentary/Breasts Denies rash - *Neurologic Denies headache(s), Denies seizure-like activity - Psychiatric Denies behavioral changes Meds Home Medications Medication Instructions Recorded Confirmed Type acetaminophen 500 mg tablet 1,000 mg PO Q4HP PRN 12/11/19 12/10/20 History atorvastatin 40 mg tablet 40 mg PO HS 12/11/19 12/10/20 History bisacodyl 10 mg rectal suppository [address] TUTH PRN 12/11/19 12/10/20 History clopidogrel 75 mg tablet 75 mg PO DAILY 12/11/19 12/09/20 History docusate sodium 250 mg capsule 250 mg PO DAILY 12/11/19 12/10/20 Histor
--- NOTE | 2020-12-10 14:51 | HMH.CNCARD ---
History of Present Illness Consult date: 12/10/20 Requesting physician: Johnny Marion Consult reason: chest pain Chief complaint: chest pain History of present illness: This is an 85-year-old white female who [facility] with complaints of chest pain. The patient states that this is a substernal pressure sensation that radiates to her neck and jaw. The patient states that she does not really remember quite when the pain started but she knows that she is having chest pain intermittently. She states that this is associated with shortness of breath, nausea and vomiting. The patient denies any abdominal pain. The patient states that her symptoms were really bad when she came to the emergency department but they are better now. The patient is a little bit confused at times but does reorient easily. She is not really able to give me any of her past medical history and most of that is obtained from her medical records. She is confused to place but oriented to self and time. Her vital signs are stable. Her first 2 troponins were negative but she does have an elevated third troponin. The patient was admitted to the hospital for healthcare associated pneumonia and is getting IV antibiotics for this. The patient reports having a history of an MT in the past. The patient cannot tell me when this was or if she received any cardiac stents at that time. She does tell me that she used to have high blood pressure. She denies hyperlipidemia or diabetes. She states that she is a former tobacco user. She is able to report to me that her father had heart problems. [facility] History I have reviewed the patient's past medical history: Yes Medical History: Reports:: Anxiety, Congestive Heart Failure, Chronic Obstructive Pulmonary Disease (COPD), Gastroesophageal Reflux Disease(GERD), Hyperlipidemia, Hypertension, Myocardial Infarction Denies:: Diabetes Mellitus Type 1 *Have you ever received a pneumonia vaccine?: No *Have you received a flu vaccine this season?: No Other Medical History: Reports: Arthritis - *Social History Smoking Status: Unknown if ever smoked Alcohol Intake: never *Occupational Status:: retired Housing: jail *Travel in the last 8 weeks: None - Psychiatric History Pschychiatric History:: Reports:: Anxiety Family Hx:: Heart Attack Meds Home Medications Medication Instructions Recorded Confirmed Type acetaminophen 500 mg tablet 1,000 mg PO Q4HP PRN 12/11/19 12/10/20 History atorvastatin 40 mg tablet 40 mg PO HS 12/11/19 12/10/20 History bisacodyl 10 mg rectal suppository 10 mg IN TUTH PRN 12/11/19 12/10/20 History clopidogrel 75 mg tablet 75 mg PO DAILY 12/11/19 12/09/20 History docusate sodium 250 mg capsule 250 mg PO DAILY 12/11/19 12/10/20 History furosemide 20 mg tablet 20 mg PO DAILY 12/11/19 12/09/20 History ipratropium 0.5 mg-albuterol 3 mg 3 ml IH Q8HP PRN 12/11/19 12/10/20 History (2.5 mg base)/3 mL nebulization soln lisinopril 2.5 mg tablet 2.5 mg PO DAILY 12/11/19 12/09/20 History melatonin 3 mg capsule 3 mg PO HS 12/11/19 12/09/20 History ondansetron HCl 4 mg tablet 4 mg PO Q6HP PRN 12/11/19 12/10/20 History ropinirole 2 mg tablet,extended 2 mg PO BID 12/11/19 12/10/20 History release 24 hr Gabapentin [Gabapentin 100mg Cap] 100 mg PO BID 12/09/20 12/09/20 History Hydrocod/Acet 5/325 mg [[place] 1 tab PO BID 12/09/20 12/09/20 History 5/325mg tablet] diazePAM [Valium 5mg tablets] 2.5 mg PO BID 12/09/20 12/09/20 History Aspirin [Aspirin 81mg chewable 81 mg PO DAILY 12/10/20 12/10/20 History tab] Metoprolol Tartrate [Lopressor 12.5 mg PO BID 12/10/20 12/10/20 History 25mg tablet] Sertraline HCl 25 mg PO DAILY 12/10/20 12/10/20 History Allergies Allergy/AdvReac Type Severity Reaction Status Date / Time alendronate sodium Allergy Unknown Verified 06/25/20 17:55 [From Fosamax] NSAIDS (Non-Steroidal Allergy Unknown Verified 06/25/20
--- NOTE | 2020-12-10 15:04 | CA_ITS ---
APPROVED REPORT EXAM: Comprehensive 2D, Doppler, and color-flow Echocardiogram Tree Puller: Rox Fish CRT Ht: 5 ft 4 in Wt: 151lbs BSA: 1.74 BP: 129/61 mmHg Indications: DNR, Chest Pain, COPD, Hyperlipidemia, Hypertension/HDD, chf, SOB, gerd, nstemi 2D Dimensions Aortic Root 1.79 cm LA Volume 49.20 mL LA Volume Index 28.30 mL/m2 (M/F) 16-34 M-Mode Dimensions RVDd 2.27 cm (0.9-2.6) LA Diam 3.93 cm (1.9-4.0) LVDd 4.79 cm (3.5-5.7) Ao Diam 3.78 cm (2.0-3.7) LVDs 3.29 cm (3.5-5.7) IVSd 0.99 cm (0.6-1.1) PWd 0.92 cm (0.6-1.1) EF (Teich) 59.10% FS 31.30% EDV (Teich) 107.00 mL TAPSE 0.68 (<1.7) ESV (Teich) 43.80 mL LV Diastology E Decel Time 197.00 (160-240 msec) E/A Ratio 0.97 MED E' 4.70 (< 7 cm/sec) MED A' 7.80 cm/s E'/MED E' Ratio 21.49 (>14) LAT E' 6.90 (<10 cm/sec) LAT A' 13.20 cm/s E/LAT E' Ratio 14.64 (>14) Aortic Valve AO Peak GR. 5.70 mmHg Mitral Valve MV A Velocity 104.00 (40-130 cm/s) E/A Ratio 0.97 MV Decel. Time 197.00 (160-240 ms) Pulmonary Valve PV Peak Velocity 104.00 (50-150 cm/s) Tricuspid Valve TR P. Velocity 298.00 cm/s RAP Estimate 10.00 mmHg RVSP 45.50 mmHg Left Ventricle Left atrium is mildly enlarged, left ventricle is normal size, mild concentric left ventricular hypertrophy, visually estimated ejection fraction 55% with no regional wall motion abnormality, diastolic parameters are inconclusive. Right Ventricle Right atrium and right ventricle are mildly enlarged with normal contractility. Aortic Valve Aortic valve is minimally thickened and fibrosed, there is no aortic stenosis or aortic insufficiency. Mitral Valve Mitral valve leaflets are minimally thickened, there is mild mitral regurgitation. Tricuspid Valve Tricuspid valve grossly normal, there is trace tricuspid regurgitation, tricuspid regurgitation jet velocity is inadequate for calculation of the right ventricular systolic pressure. Pulmonic Valve Pulmonic valve is poorly visualized. Great Vessels Aortic root is normal size. Pericardium No significant pericardial effusion noted. Conclusion 1. Mild biatrial enlargement, normal left ventricular size, mild concentric left ventricular hypertrophy, visually estimated ejection fraction 55% with no regional wall motion abnormality. Diastolic parameters are inconclusive. 3. Mild mitral and tricuspid regurgitation. 4. No significant pericardial effusion noted. Electronically signed by : Michael Galloway MD 12/10/2020 20:15:42
--- NOTE | 2020-12-10 17:14 | PC.NURSE ---
Bj Ivory RN made aware of positive anaerobic and aerobic blood cx's.
[2020-12-11] VITALS: BP 120/78; PULSE 70; PULSE 86; RESP 20; TEMP 36.7; O2SAT 98
[2020-12-11 04:00] VITALS: BP 105/74; PULSE 70; PULSE 84; RESP 20; TEMP 36.8; O2SAT 98
--- NOTE | 2020-12-11 04:26 | PC.NURSE ---
Patient is alert to person. She has not rested well this shift. IV access was lost and regained. IV fluids infusing at 50 ml/hr per order. VSS, call light within reach, will continue to monitor. No acute changes noted this RN's shift.
--- NOTE | 2020-12-11 04:37 | ECG_ITS ---
APPROVED REPORT Exam: Resting ECG HR:71 bpm ECG Measurements Heart Rate 71 AXES QRSd 92 QRS 39 QT 422 T -12 QTc 458 Conclusion Atrial fibrillation with a competing junctional pacemaker Cannot rule out Anterior infarct, age undetermined Abnormal ECG Electronically signed by : Robin Carvajal MD 12/11/2020 17:33:50
[2020-12-11 05:47] VITALS: BMI 25.9
[2020-12-11 07:08] LABS: Basophils % 0.3 % (0.1-2.0); Eosinophils # 0.2 K/mm3 (0.0-0.4); Eosinophils % 1.5 % (0.1-12.0); Hematocrit 32.4 % (37.0-47.0); Hemoglobin 10.1 g/dL (12.2-16.2); Lymphocytes # 2.2 K/mm3 (0.7-4.5); Mean Corpuscular HGB Conc 31.1 g/dL (31.8-35.4); Mean Corpuscular Hemoglobin 29.1 pg (27.0-31.2); Mean Corpuscular Volume 93.3 fl (81-99); Mean Platelet Volume 9.9 fl (7.4-10.4); Monocytes # 0.5 K/mm3 (0.1-1.0); Monocytes % 3.5 % (1.7-9.3); Neutrophils # 10.9 K/mm3 (1.8-7.8); Neutrophils % 78.8 % (37.0-80.0); Platelet Count 208 K/mm3 (142-424); Red Blood Count 3.47 M/mm3 (4.20-5.40); Red Cell Distribution Width 14.5 % (11.5-17.5); White Blood Count 13.9 K/mm3 (4.8-10.8)
[2020-12-11 07:09] LABS: Alanine Aminotransferase 119 U/L (12-78); Alkaline Phosphatase 378 U/L (38-126); Anion Gap 10.8 mEq/L (5-15); Aspartate Amino Transferase 178 U/L (14-36); Bilirubin, Conjugated 0.2 mg/dL (0.0-0.3); Bilirubin,Direct 1.2 mg/dl (0.0-0.4); Bilirubin,Indirect 0.4 mg/dL (0.0-0.9); Bilirubin,Total 1.6 mg/dl (0.2-1.3); Bilirubin,Unconjugated 0.4 mg/dL (0.0-1.1); Blood Urea Nitrogen 18 mg/dl (7-17); Calcium 8.2 mg/dl (8.4-10.2); Carbon Dioxide 25 mmol/L (22.0-30.0); Chloride 106 mmol/L (98-107); Chol/HDL Ratio 3.1 (1-3.5); Cholesterol 115 mg/dl (140-200); Creatinine Clearance Estimated 46 mL/min (50-200); Estimated Glomerular Filt Rate 95 ml/min (>60); GFR (African American) 115 ML/MIN (>60); Glucose 88 mg/dl (74-100); HDL Cholesterol 37 mg/dl (40-60); Potassium 3.8 mmoL/L (3.5-5.1); Sodium 138 mmol/L (136-145); Total Protein,Serum 6.1 g/dl (6.3-8.2); Triglycerides 73 mg/dl (30-150); VLDL Cholesterol 15 mg/dL (0-40)
[2020-12-11 07:17] LABS: NT Pro Brain Natriuretic Pep. 2000 pg/mL (0-450)
[2020-12-11 07:20] LABS: Direct LDL Cholesterol 44.54 mg/dL (100-129)
[2020-12-11 08:00] VITALS: BP 118/43; PULSE 76; RESP 16; TEMP 36.8; O2SAT 100
--- NOTE | 2020-12-11 09:24 | HMH.PNCARD ---
Subjective Date: 12/11/20 Time: 08:30 Principal diagnosis: angina, non-stemi Interval history: This is an 85-year-old white female who presented to the emergency department from the senior living with complaints of chest pain. The patient has been having substernal pressure sensation that radiates to her neck and jaw. She states that this is occurring intermittently and is associated with shortness of breath, nausea and vomiting. The patient states that the symptoms did get severe and that is why she came to the emergency department. Of note, the patient is somewhat confused at times but does reorient easily. She cannot really explain anything else about her chest pain other than what I have listed above. She cannot really give me much of her past medical history and most of it was obtained from medical records. She is oriented to self and time. She is confused to place. Her vital signs are stable. The patient did have an elevated troponin consistent with a non-ST elevation myocardial infarction and she is scheduled to undergo left cardiac catheterization today. She states that she is free of chest pain while in standing in the room with her but it does occur intermittently. She does complain of shortness of breath and states that she is pretty short of breath all the time. It is worse with exertion and does get better with rest. She denies any fever, chills, nausea, vomiting, diarrhea, PND orthopnea today. Exam Vital signs and Labs for Last 24 Hours: Temp Pulse Resp BP Pulse Ox 98.3 F 84 20 105/74 L 98 12/11/20 04:00 12/11/20 04:00 12/11/20 04:00 12/11/20 04:00 12/11/20 04:00 Laboratory Results - last 24 hr 12/11/20 06:00: WBC 13.9 H D, RBC 3.47 L, Hgb 10.1 L, Hct 32.4 L, MCV 93.3, MCH 29.1, MCHC 31.1 L, RDW 14.5, Plt Count 208, MPV 9.9, Neut % (Auto) 78.8, Lymph % (Auto) 16.0, [place] % (Auto) 3.5, Eos % (Auto) 1.5, Baso % (Auto) 0.3, Neut # (Auto) 10.9 H, Lymph # (Auto) 2.2, [place] # (Auto) 0.5, Eos # (Auto) 0.2, Baso # (Auto) 0.0 12/11/20 06:00: Sodium 138, Potassium 3.8, Chloride 106, Carbon Dioxide 25, Anion Gap 10.8, BUN 18 H, Creatinine 0.60, Estimated Creat Clear 46, Estimated GFR 95, Est GFR ( Amer) 115, Glucose 88, Calcium 8.2 L, Total Bilirubin 1.6 H, Direct Bilirubin 1.2 H, Conjugated Bilirubin 0.2, Indirect Bilirubin 0.4, Unconjugated Bilirubin 0.4, AST 178 H, ALT 119 H, Alkaline Phosphatase 378 H, NT-Pro-B Natriuret Pep 2000 H, Total Protein 6.1 L, Albumin 3.0 L, Triglycerides 73, Cholesterol 115 L, LDL Cholesterol Direct 44.54 L, VLDL Cholesterol 15, HDL Cholesterol 37 L, Cholesterol/HDL Ratio 3.1 I & O for Last 24 hours: Intake & Output 12/08/20 12/09/20 12/10/20 12/11/20 23:59 23:59 23:59 23:59 Intake Total 880 / 880 Balance 880 / 880 Weight 151 lb 155 lb 5 oz Microbiology Reports for the Last 24 Hours: Microbiology 12/09/20 20:10 Blood Blood Culture - Preliminary 12/09/20 20:10 Blood Blood Culture - Preliminary Narrative: Telemetry strip is sinus rhythm. ECHO shows: 1. Mild biatrial enlargement, normal left ventricular size, mild concentric left ventricular hypertrophy, visually estimated ejection fraction 55% with no regional wall motion abnormality. Diastolic parameters are inconclusive. 3. Mild mitral and tricuspid regurgitation. 4. No significant pericardial effusion noted. - Constitutional no acute distress, average body habitus - *Routine HEENT Exam Head: Present: normocephalic, atraumatic Eye: Present: EOMI, PERRL ENT: Present: mucous membranes moist - *Routine Neck Exam Present: supple, full ROM, normal carotid upstroke. Absent: JVD, carotid bruit, lymphadenopathy - *Routine Respiratory Exam Present: decreased breath sounds, CTA bilaterally - *Routine Cardiovascular Exam Present: RRR, Normal S1, Normal S2. Absent: murmur - *Routine Abdominal Exam Present: soft, normoactive bowel sounds. Absent: tenderness, distended - *Routine Ex
--- NOTE | 2020-12-11 09:41 | PC.NURSE ---
chantelle peña, rn notified that family does NOT give consent for pt to have heart cath
[2020-12-11 12:00] VITALS: BP 101/67; PULSE 80; RESP 16; TEMP 36.6; O2SAT 98
--- NOTE | 2020-12-11 12:00 | PC.NURSE ---
Spoke with KRISTINE Sullivan and she refused to give consent for heart cath. This RN explained reasoning for heart cath and she stated she didn't want it and didn't think her mom would make it through the procedure. Heart cath has been notified, as well as A Benji. Will make PCP aware as well.
--- NOTE | 2020-12-11 13:50 | PC.NURSE ---
Bj Hannah APRN made aware that pt's POA/daughter did refuse to give consent for heart cath, he stated he was going to call and speak with POA.
--- NOTE | 2020-12-11 14:15 | HMH.ACPN2 ---
Internal Medicine - PN: Subj *Date: 12/11/20 *Time: 18:31 Interval history: 85 YOF sitting up in chair, denies CP during night, oxygenation 98% on 2l NC Exam Vital signs and Labs for Last 24 Hours: Temp Pulse Resp BP Pulse Ox 97.9 F 80 16 101/67 L 98 12/11/20 12:00 12/11/20 12:00 12/11/20 12:00 12/11/20 12:00 12/11/20 12:00 Laboratory Results - last 24 hr 12/11/20 06:00: WBC 13.9 H D, RBC 3.47 L, Hgb 10.1 L, Hct 32.4 L, MCV 93.3, MCH 29.1, MCHC 31.1 L, RDW 14.5, Plt Count 208, MPV 9.9, Neut % (Auto) 78.8, Lymph % (Auto) 16.0, [place] % (Auto) 3.5, Eos % (Auto) 1.5, Baso % (Auto) 0.3, Neut # (Auto) 10.9 H, Lymph # (Auto) 2.2, [place] # (Auto) 0.5, Eos # (Auto) 0.2, Baso # (Auto) 0.0 12/11/20 06:00: Sodium 138, Potassium 3.8, Chloride 106, Carbon Dioxide 25, Anion Gap 10.8, BUN 18 H, Creatinine 0.60, Estimated Creat Clear 46, Estimated GFR 95, Est GFR ( Amer) 115, Glucose 88, Calcium 8.2 L, Total Bilirubin 1.6 H, Direct Bilirubin 1.2 H, Conjugated Bilirubin 0.2, Indirect Bilirubin 0.4, Unconjugated Bilirubin 0.4, AST 178 H, ALT 119 H, Alkaline Phosphatase 378 H, NT-Pro-B Natriuret Pep 2000 H, Total Protein 6.1 L, Albumin 3.0 L, Triglycerides 73, Cholesterol 115 L, LDL Cholesterol Direct 44.54 L, VLDL Cholesterol 15, HDL Cholesterol 37 L, Cholesterol/HDL Ratio 3.1 I & O for Last 24 hours: Intake & Output 12/08/20 12/09/20 12/10/20 12/11/20 23:59 23:59 23:59 23:59 Intake Total 880 / 880 Balance 880 / 880 Weight 151 lb 155 lb 5 oz Microbiology Reports for the Last 24 Hours: Microbiology 12/09/20 20:10 Blood Blood Culture - Preliminary Gram Negative Rods 12/09/20 20:10 Blood Blood Culture - Preliminary Gram Negative Rods - Constitutional no acute distress - *Routine HEENT Exam Head: Present: normocephalic Eye: Present: EOMI ENT: Present: mucous membranes moist - *Routine Neck Exam Present: trachea midline. Absent: JVD, tracheal deviation - *Routine Respiratory Exam Present: CTA bilaterally. Absent: accessory muscle use - *Routine Cardiovascular Exam Present: RRR - *Routine Abdominal Exam Present: soft, normoactive bowel sounds. Absent: tenderness, rigid - *Routine Extremities Exam Present: full ROM, pulses intact. Absent: cyanosis, clubbing - *Routine Skin Exam Present: intact, dry, warm. Absent: cyanosis, erythema - *Routine Neurological Exam Present: alert. Absent: motor deficit - Routine Psychiatric Exam Present: normal affect Assessment and Plan (1) Elevated troponin Status: Acute Category: Medical Code(s): R77.8 - Other specified abnormalities of plasma proteins (2) Anemia Status: Acute Qualifiers: Anemia type: unspecified type Qualified Code(s): D64.9 - Anemia, unspecified Category: Medical Code(s): D64.9 - Anemia, unspecified (3) Healthcare-associated pneumonia Status: Acute Category: Medical Code(s): J18.9 - Pneumonia, unspecified organism (4) Left bundle branch block Status: Acute Category: Medical Code(s): I44.7 - Left bundle-branch block, unspecified (5) Dementia Status: Chronic Qualifiers: Dementia type: associated with other underlying disease Dementia behavioral disturbance: without behavioral disturbance Qualified Code(s): F02.80 - Dementia in other diseases classified elsewhere without behavioral disturbance Category: Medical Code(s): F03.90 - Unspecified dementia without behavioral disturbance (6) Hyperlipidemia Status: Chronic Qualifiers: Hyperlipidemia type: mixed hyperlipidemia Qualified Code(s): E78.2 - Mixed hyperlipidemia Category: Medical Code(s): E78.5 - Hyperlipidemia, unspecified (7) History of [place] (myocardial infarction) Status: Chronic Category: Medical Code(s): I25.2 - Old myocardial infarction (8) Heart failure Status: Chronic Qualifiers: Heart failure type: other
[2020-12-11 15:07] LABS: Microscopic, Urine URINE MICROSCOPIC (MICROSCOPIC)
[2020-12-11 15:08] LABS: Appearance,Urine CLEAR (Clear); Bilirubin,Urine Negative (Negative); Blood, Urine Negative (Negative); Color,Urine YELLOW (Yellow); Glucose,Urine (UA) Negative (Negative); Ketones,Urine Negative (Negative); Leukocyte Esterase,Urine TRACE (Negative); Nitrate,Urine Negative (Negative); Protein,Urine Negative (Negative); Urobilinogen,Urine 0.2 EU/dl (0.2)
[2020-12-11 15:43] LABS: WBC,Urine Occasional #/hpf (0-3)
[2020-12-11 16:00] VITALS: BP 156/65; PULSE 91; RESP 17; TEMP 36.7; O2SAT 100
--- NOTE | 2020-12-11 17:45 | PC.NURSE ---
RESPIRATORY CARE: PT AND DAUGHTER INSTRUCTED ON SPUTUM SAMPLE. CUP LEFT AT BEDSIDE.
--- NOTE | 2020-12-11 19:54 | PC.NURSE ---
Have spoke with daughter's poa this shift, and she spoke with Bj wesley APRN in RE to heart cath. This afternoon this RN attempted to get consent written while she was here and poa stated she wasn't refusing, but didnt want to sign consent yet and wanted to be notified in the am prior to heart cath. Pt has refused to leave this heart monitor on and has took off multiple times, after placing back on. VSS, has been up to chair with NAD. Bed alarm on and working for safety.
[2020-12-11 20:00] VITALS: BP 138/74; RESP 92; TEMP 36.6; O2SAT 100
[2020-12-12] VITALS (18 sets, daily range): BP systolic 110–155; BP diastolic 46–73; PULSE 60–168; RESP 14–20; TEMP 36.5–36.9; O2SAT 90–99; BMI 25.5
--- NOTE | 2020-12-12 | IR_ITS ---
APPROVED REPORT PROCEDURES Left heart catheterization Left ventriculogram Selective coronary angiogram INDICATION Acute non-ST elevation myocardial infarction Informed consent was obtained prior to the procedure. Estimated Blood Loss: less than 10 ml TECHNIQUE One percent lidocaine used to anesthetize the right anterior aspect of the wrist. The right radial artery was accessed via the Seldinger technique. A 6 [place] sheath was placed in the right radial artery. 2.5 mg of verapamil, 800 mcg of nitroglycerin, 1mg Lidocaine and 5000 U Heparin were given through the arterial sheath. The trap catheter was also used to perform left heart catheterization, left ventriculogram and selective coronary angiogram. At the end of the procedure the sheath was removed good hemostasis was achieved using Traclet band, patient was transferred to the postop holding area in stable condition. ANGIOGRAPHIC RESULTS The left main artery Normal The left anterior descending artery Proximally normal with a mid vessel 30% stenosis The circumflex artery Nondominant normal The right coronary artery Large dominant with proximal calcified 10 to 20% stenoses The [place]ATT[place] ventriculogram reveals Normal 60% The left ventricular end-diastolic pressure 30 to 35 mmHg IMPRESSION Mild nonflow limiting coronary disease Normal ejection fraction Severely elevated LVEDP consistent with diastolic dysfunction PLAN 1. Risk factor modification for coronary disease 2. Treatment of diastolic dysfunction which is the likely etiology for the troponin elevation Electronically signed by : Jorge Edwards MD 12/12/2020 14:15:07
--- NOTE | 2020-12-12 03:59 | PC.NURSE ---
PT VERY CONFUSED DURING THE FIRST HALF OF SHIFT. NOTIFIED, ATIVAN GIVEN PER PROOFSHEET CORRECTOR MD MCKEON. SINCE ADMINISTRATION, PT HAS BEEN SLEEPING COMFORTABLY IN HER BED. SAFETY ON. PT HAS HAD NO OTHER C/O THUS FAR. CONTINUES TO BE INCONTINENT OF BOWEL AND BLADDER. KEPT CLEAN AND DRY. VSS WILL CONTINUE TO MONITOR.
[2020-12-12 06:28] LABS: Basophils % 0.3 % (0.1-2.0); Eosinophils # 0.2 K/mm3 (0.0-0.4); Hemoglobin 9.8 g/dL (12.2-16.2); Lymphocytes # 2.3 K/mm3 (0.7-4.5); Lymphocytes % 21.6 % (10-50); Mean Corpuscular HGB Conc 30.7 g/dL (31.8-35.4); Mean Corpuscular Hemoglobin 28.8 pg (27.0-31.2); Mean Corpuscular Volume 93.9 fl (81-99); Mean Platelet Volume 9.7 fl (7.4-10.4); Monocytes # 0.4 K/mm3 (0.1-1.0); Monocytes % 4.1 % (1.7-9.3); Neutrophils # 7.7 K/mm3 (1.8-7.8); Neutrophils % 72.1 % (37.0-80.0); Platelet Count 238 K/mm3 (142-424); Red Blood Count 3.41 M/mm3 (4.20-5.40); Red Cell Distribution Width 14.5 % (11.5-17.5); White Blood Count 10.6 K/mm3 (4.8-10.8)
--- NOTE | 2020-12-12 06:56 | PC.NURSE ---
ASSIGNMENT ACCEPTED UNDER DURESS.
--- NOTE | 2020-12-12 09:36 | HMH.ACPN2 ---
Internal Medicine - PN: Subj *Date: 12/12/20 *Time: 09:36 Exam Vital signs and Labs for Last 24 Hours: Temp Pulse Resp BP Pulse Ox 98.1 F 74 20 117/52 L 99 12/12/20 08:00 12/12/20 08:00 12/12/20 08:00 12/12/20 08:00 12/12/20 08:00 Laboratory Results - last 24 hr 12/09/20 15:06: Urine Color Yellow, Urine Appearance Clear, Urine pH 6.0, Ur Specific [place] 1.010, Urine Protein Negative, Urine Glucose (UA) Negative, Urine Ketones Negative, Urine Blood Negative, Urine Nitrate Negative, Urine Bilirubin Negative, Urine Urobilinogen 0.2, Ur Leukocyte Esterase Trace, Urine RBC None, Urine WBC Occasional, Ur Squamous Epith Cells None, Urine Bacteria None 12/12/20 05:59: WBC 10.6, RBC 3.41 L, Hgb 9.8 L, Hct 32.0 L, MCV 93.9, MCH 28.8, MCHC 30.7 L, RDW 14.5, Plt Count 238, MPV 9.7, Neut % (Auto) 72.1, Lymph % (Auto) 21.6, [place] % (Auto) 4.1, Eos % (Auto) 2.0, Baso % (Auto) 0.3, Neut # (Auto) 7.7, Lymph # (Auto) 2.3, [place] # (Auto) 0.4, Eos # (Auto) 0.2, Baso # (Auto) 0.0 I & O for Last 24 hours: Intake & Output 12/09/20 12/10/20 12/11/20 12/12/20 23:59 23:59 23:59 23:59 Intake Total 880 / 880 240 / 240 Balance 880 / 880 240 / 240 Weight 151 lb 155 lb 5 oz 153 lb 3 oz Microbiology Reports for the Last 24 Hours: Microbiology 12/09/20 20:10 Blood Blood Culture - Preliminary Escherichia coli 12/09/20 20:10 Blood Blood Culture - Preliminary Escherichia coli Assessment and Plan (1) Elevated troponin Status: Acute Category: Medical Code(s): R77.8 - Other specified abnormalities of plasma proteins (2) Anemia Status: Acute Qualifiers: Anemia type: unspecified type Qualified Code(s): D64.9 - Anemia, unspecified Category: Medical Code(s): D64.9 - Anemia, unspecified (3) Healthcare-associated pneumonia Status: Acute Category: Medical Code(s): J18.9 - Pneumonia, unspecified organism (4) Left bundle branch block Status: Acute Category: Medical Code(s): I44.7 - Left bundle-branch block, unspecified (5) Dementia Status: Chronic Qualifiers: Dementia type: associated with other underlying disease Dementia behavioral disturbance: without behavioral disturbance Qualified Code(s): F02.80 - Dementia in other diseases classified elsewhere without behavioral disturbance Category: Medical Code(s): F03.90 - Unspecified dementia without behavioral disturbance (6) Hyperlipidemia Status: Chronic Qualifiers: Hyperlipidemia type: mixed hyperlipidemia Qualified Code(s): E78.2 - Mixed hyperlipidemia Category: Medical Code(s): E78.5 - Hyperlipidemia, unspecified (7) History of [place] (myocardial infarction) Status: Chronic Category: Medical Code(s): I25.2 - Old myocardial infarction (8) Heart failure Status: Chronic Qualifiers: Heart failure type: other Qualified Code(s): I50.89 - Other heart failure Category: Medical Code(s): I50.9 - Heart failure, unspecified (9) Hypertension Status: Chronic Qualifiers: Hypertension type: primary hypertension Qualified Code(s): I10 - Essential (primary) hypertension Category: Medical Code(s): I10 - Essential (primary) hypertension
[2020-12-12 09:38] LABS: Anion Gap 11.7 mEq/L (5-15); Blood Urea Nitrogen 15 mg/dl (7-17); Calcium 8.4 mg/dl (8.4-10.2); Carbon Dioxide 24 mmol/L (22.0-30.0); Chloride 108 mmol/L (98-107); Creatinine Clearance Estimated 45 mL/min (50-200); Estimated Glomerular Filt Rate 95 ml/min (>60); GFR (African American) 115 ML/MIN (>60); Glucose 91 mg/dl (74-100); Potassium 3.7 mmoL/L (3.5-5.1); Sodium 140 mmol/L (136-145)
--- NOTE | 2020-12-12 10:17 | HMH.PNCARD ---
Subjective Date: 12/12/20 Time: 10:17 Principal diagnosis: angina, non-stemi Interval history: This is a 89-year-old white female who presented to the emergency department from the care home with complaints of chest pain. The patient has been having substernal chest pressure that radiates to her neck and jaw. She states that this occurs intermittently and is associated with shortness of breath, nausea and vomiting. The patient states that the symptoms did get severe when she came to the emergency department. However, she is somewhat confused at times so her history is not the most reliable. She cannot tell me when the symptoms started or how long they have been going on. She is unable to describe her chest pain any further than what I have documented. Most of her history came from previous documentation and medical records. The patient is oriented to self and time. She is still confused to place. She states that her chest pain is better she thinks. She denies any shortness of breath today. The patient does have an limited troponin consistent with a non-ST elevation myocardial infarction. The patient was supposed to undergo left cardiac catheterization yesterday but at first the family refused to sign the consent. After further discussion with her daughter by her primary care provider the patient's daughter did agree to the procedure and she is scheduled to undergo a left cardiac catheterization today. She denies any fever, chills, nausea, vomiting, diarrhea, PND or orthopnea today. Exam Vital signs and Labs for Last 24 Hours: Temp Pulse Resp BP Pulse Ox 98.1 F 74 20 117/52 L 99 12/12/20 08:00 12/12/20 08:00 12/12/20 08:00 12/12/20 08:00 12/12/20 08:00 Laboratory Results - last 24 hr 12/09/20 15:06: Urine Color Yellow, Urine Appearance Clear, Urine pH 6.0, Ur Specific [place] 1.010, Urine Protein Negative, Urine Glucose (UA) Negative, Urine Ketones Negative, Urine Blood Negative, Urine Nitrate Negative, Urine Bilirubin Negative, Urine Urobilinogen 0.2, Ur Leukocyte Esterase Trace, Urine RBC None, Urine WBC Occasional, Ur Squamous Epith Cells None, Urine Bacteria None 12/12/20 05:59: WBC 10.6, RBC 3.41 L, Hgb 9.8 L, Hct 32.0 L, MCV 93.9, MCH 28.8, MCHC 30.7 L, RDW 14.5, Plt Count 238, MPV 9.7, Neut % (Auto) 72.1, Lymph % (Auto) 21.6, [place] % (Auto) 4.1, Eos % (Auto) 2.0, Baso % (Auto) 0.3, Neut # (Auto) 7.7, Lymph # (Auto) 2.3, [place] # (Auto) 0.4, Eos # (Auto) 0.2, Baso # (Auto) 0.0 12/12/20 05:59: Sodium 140, Potassium 3.7, Chloride 108 H, Carbon Dioxide 24, Anion Gap 11.7, BUN 15, Creatinine 0.60, Estimated Creat Clear 45, Estimated GFR 95, Est GFR ( Amer) 115, Glucose 91, Calcium 8.4 I & O for Last 24 hours: Intake & Output 12/09/20 12/10/20 12/11/20 12/12/20 23:59 23:59 23:59 23:59 Intake Total 880 / 880 240 / 240 Balance 880 / 880 240 / 240 Weight 151 lb 155 lb 5 oz 153 lb 3 oz Microbiology Reports for the Last 24 Hours: Microbiology 12/09/20 20:10 Blood Blood Culture - Preliminary Escherichia coli 12/09/20 20:10 Blood Blood Culture - Preliminary Escherichia coli Narrative: Telemetry strip is sinus rhythm. - Constitutional no acute distress, average body habitus - *Routine HEENT Exam Head: Present: normocephalic, atraumatic Eye: Present: EOMI, PERRL ENT: Present: mucous membranes moist - *Routine Neck Exam Present: supple, full ROM, normal carotid upstroke. Absent: JVD, carotid bruit, lymphadenopathy - *Routine Respiratory Exam Present: CTA bilaterally - *Routine Cardiovascular Exam Present: RRR, Normal S1, Normal S2. Absent: murmur - *Routine Abdominal Exam Present: soft, normoactive bowel sounds. Absent: tenderness, distended - *Routine Extremities Exam Present: full ROM, pulses intact, normal capillary refill. Absent: cyanosis, clubbing, edema - *Routine Skin Exam Present: intact, warm. Absent: eryt
[2020-12-12 12:12] LABS: Microscopic, Urine URINE MICROSCOPIC (MICROSCOPIC)
[2020-12-12 12:18] LABS: Appearance,Urine CLEAR (Clear); Bilirubin,Urine Negative (Negative); Blood, Urine 3+ (Negative); Color,Urine YELLOW (Yellow); Glucose,Urine (UA) Negative (Negative); Ketones,Urine TRACE (Negative); Leukocyte Esterase,Urine TRACE (Negative); Nitrate,Urine Negative (Negative); Protein,Urine TRACE (Negative); Specific Gravity, Urine 1.015 (1.005-1.030); Urobilinogen,Urine 0.2 EU/dl (0.2)
[2020-12-12 12:27] LABS: Amorphous Sediment,Urine 1+ /lpf
--- NOTE | 2020-12-12 16:30 | HMH.DCSUM ---
General - General Admission date:: 12/09/20 Discharge date: 12/12/20 HPI HPI: this patient presented to the ed -85-year-old female with past medical history of hypertension, hyperlipidemia, and COPD on baseline 2 L oxygen who presents to the emergency department brought in by EMS from long term due to complaints of chest pain, chest discomfort, and shortness of breath prior to arrival. Patient states she has also been vomiting today. Minimal history is able to be obtained from the patient as she is demented. However, she has no current complaints when I examined her aside from vomiting today. She has stable vital signs and is conversational, pleasantly confused. 5-year-old female who presents to the emergency department with complaints of chest pain at nursing facility, now with complaints of shortness of breath and vomiting in our facility. Patient was evaluated with full panel of labs including CBC, CMP, troponin, EKG, and chest x-ray. White count was 22, no anemia or thrombocytopenia, small anion gap, no electrolyte abnormalities, no lactic acidosis. Initial troponin is 0.02. Initial EKG shows no evidence of ST elevations or depressions, no arrhythmias, or other severe findings. Second troponin resulted at 0.04, patient continued to appear comfortable and denying any symptoms. Nausea had resolved since arriving to emergency department. Chest x-ray showed evidence of worsening right lower lobe infiltrate that was not present on x-ray from 9?15. Given these findings and leukocytosis, as well as patient's age, mild uremia, and confusion she will be admitted to the hospital for healthcare associated pneumonia. Patient was started on healthcare associated pneumonia medication including IV bank, cefepime, and Flagyl. A repeat EKG and third troponin were ordered after patient was admitted to the hospital. These will be followed up by the admitting team, or nighttime ED provider if she is still here. Patient's urinalysis was also pending resolution at the time of admission. She remained hemodynamically stable during her emergency department stay. Per patient's long term chart, she is a DNR so will be admitted under this CODE STATUS. pt admitted for eval and treatment Hospital Course Hospital Course: 85 YOF presented to the ed -85-year-old female with past medical history of hypertension, hyperlipidemia, and COPD on baseline 2 L oxygen who presents to the emergency department brought in by EMS from long term due to complaints of chest pain, chest discomfort, and shortness of breath prior to arrival. Patient states she has also been vomiting today. Minimal history is able to be obtained from the patient as she is demented. However, she has no current complaints when examined aside from vomiting today. She had stable vital signs and was conversational, pleasantly confused. 12/09/20 CXR: IMPRESSION: 1. Stable exam compared with 12/09/2020. 2. Persistent elevated right diaphragm with right lower pulmonary volume loss. 3. Nonspecific central and lower pulmonary interstitial prominence, which could chronic disease versus vascular congestion or bronchitis and pneumonia. 4. Persistent vague nodular density projected over the medial right lung apex, which could be underlying mass, pneumonia or benign summation shadow. 5. Additional nonemergency and chronic findings as above. Electronically signed by Kate Guzmán MD 12/10/20 ECHO: Conclusion 1. Mild biatrial enlargement, normal left ventricular size, mild concentric left ventricular hypertrophy, visually estimated ejection fraction 55% with no regional wall motion abnormality. Diastolic parameters are inconclusive. 3. Mild mitral and tricuspid regurgitation. 4. No significant pericardial effusion noted. Electronically signed by : Michael Galloway MD 12/12/20 Cardiac Cath: ANGIOGRAPHIC RESULTS The left main artery Normal The left anterior desc
--- NOTE | 2020-12-12 21:30 | PC.NURSE ---
Pt left with [facility] ambulance to go to [place] at 2129.
== END 2020-12-12 21:30 | DRG 280 ==
LOC: ER 17:02 → 2ND 21:17
PROVIDERS: Internal Medicine; Nurse Practitioner Family; Admitting Provider Emergency Medicine; Emergency Provider Emergency Medicine; Visit Provider Emergency Medicine
PROC: 4A023N7 Measurement of Cardiac Sampling and Pressure, Left Heart, Percutaneous Approach (ICD-10-PCS; principal; 2020-12-12 10:15)
DX: I21.4 Non-ST elevation (NSTEMI) myocardial infarction (principal); J18.9 Pneumonia, unspecified organism; A41.51 Sepsis due to Escherichia coli [E. coli]; J44.0 Chronic obstructive pulmonary disease with (acute) lower respiratory infection; Z20.822 Contact with and (suspected) exposure to COVID-19; I11.0 Hypertensive heart disease with heart failure; I50.9 Heart failure, unspecified; Y95 Nosocomial condition; Z99.81 Dependence on supplemental oxygen; I25.2 Old myocardial infarction; F41.9 Anxiety disorder, unspecified; Z66 Do not resuscitate; M19.90 Unspecified osteoarthritis, unspecified site; F03.90 Unspecified dementia, unspecified severity, without behavioral disturbance, psychotic disturbance, mood disturbance, and anxiety; E78.2 Mixed hyperlipidemia; Z87.891 Personal history of nicotine dependence; I25.10 Atherosclerotic heart disease of native coronary artery without angina pectoris; D64.9 Anemia, unspecified
CPT/HCPCS: 36415; 71045; 80048; 80061; 80076; 81001; 83605; 83735; 83880; 84484; 85007; 85025; 87040; 87077; 87186; 93005; 93306; 93458; 96365; 96366; 99152; 99285; C1725; C1769; C9803; J0456; J1644; J1956; J3370; Q9967; U0003; U0005

== ENCOUNTER 2020-12-31 16:20 | Emergency (ER) | payer MEDICARE, MEDICAID, SELFPAY ==
--- NOTE | 2020-12-31 16:18 | ECG_ITS ---
APPROVED REPORT Exam: Resting ECG HR:79 bpm ECG Measurements Heart Rate 79 AXES MN 140 P 10 QRSd 98 QRS 52 QT 412 T 56 QTc 472 Conclusion Sinus rhythm with marked sinus arrhythmia Cannot rule out Anterior infarct, age undetermined Abnormal ECG Electronically signed by : Robin Carvajal MD 01/02/2021 21:26:27
[2020-12-31 16:20] VITALS: BP 124/55; PULSE 79; RESP 16; TEMP 36.8; O2SAT 98; BMI 23.0; BMI 25.2
--- NOTE | 2020-12-31 16:24 | XR_ITS ---
PROCEDURE INFORMATION: Exam: XR Chest Exam date and time: 12/31/2020 4:24 PM Age: 85 years old Clinical indication: Cough TECHNIQUE: Imaging protocol: XR of the chest. Views: 1 view. COMPARISON: 1. CR XR CHEST PORTABLE 12/09/2020 5:[address] CERVICAL SPINE WO CON 12/05/2020 12:10:54 AM FINDINGS: Lungs: Mild bronchial wall thickening. This may represent underlying inflammation or infection, or be chronic. Masslike appearance medially in the right lung apex appears related to enlarged and nodular right lobe of the thyroid on comparison CT of the cervical spine. Pleural spaces: Unremarkable. No pleural effusion. No pneumothorax. Heart/Mediastinum: Unremarkable. No cardiomegaly. Diaphragm: Elevated right hemidiaphragm. Bones/joints: Unremarkable. IMPRESSION: 1. Mild bronchial wall thickening. This may represent underlying inflammation or infection, or be chronic. This is unchanged. 2. Masslike appearance medially in the right lung apex appears related to enlarged and nodular right lobe of the thyroid on comparison CT of the cervical spine. Advanced degenerative changes in the shoulders.
[2020-12-31 16:57] LABS: Basophils % 0.3 % (0.1-2.0); Eosinophils # 0.2 K/mm3 (0.0-0.4); Hematocrit 37.9 % (37.0-47.0); Lymphocytes # 3.5 K/mm3 (0.7-4.5); Lymphocytes % 29.4 % (10-50); Mean Corpuscular HGB Conc 31.8 g/dL (31.8-35.4); Mean Corpuscular Hemoglobin 29.2 pg (27.0-31.2); Mean Corpuscular Volume 91.9 fl (81-99); Mean Platelet Volume 9.4 fl (7.4-10.4); Monocytes # 0.8 K/mm3 (0.1-1.0); Monocytes % 6.4 % (1.7-9.3); Neutrophils # 7.3 K/mm3 (1.8-7.8); Neutrophils % 61.8 % (37.0-80.0); Platelet Count 252 K/mm3 (142-424); Red Blood Count 4.12 M/mm3 (4.20-5.40); Red Cell Distribution Width 14.5 % (11.5-17.5); White Blood Count 11.8 K/mm3 (4.8-10.8)
--- NOTE | 2020-12-31 16:58 | HMH.EDCP ---
ED Disposition Clinical Impression: Chest pain Qualifiers: Chest pain type: other chest pain Qualified Code(s): R07.89 - Other chest pain Disposition: Home, Self-Care Condition on Discharge: Good Instructions: DI for Atypical Chest Pain Referrals: Johnny Marion MD [Primary Care Provider] - - Critical Care Critical Care Time: No Attestation: On 12/31/20, the high probability of a clinically significant, sudden or life threatening deterioration of the following system(s) required my full and direct attention, intervention and personal management. The time I documented below is in addition to time spent performing reported procedures but includes the following listed in this critical care notation. Medical Decision Making - Medical Records Medical records reviewed: Yes: I reviewed the patient's medical records. - Leonel Inquiry Pt receiving controlled substance: No Vital Signs: 12/31/20 16:20 12/31/20 17:30 12/31/20 18:00 Temperature 98.2 F Temperature Source Oral Pulse Rate 89 89 Pulse Rate [Radial] 79 Respiratory Rate 16 16 18 Blood Pressure 126/63 142/66 H Blood Pressure [Right Arm] 124/55 L Blood Pressure Mean 77 75 Blood Pressure Mean [Right Arm] 78 Blood Pressure Position [Right Arm] Sitting 02 Sat by Pulse Oximetry 98 100 100 Oxygen Delivery Method Room Air - Lab Data Lab Results 12/31/20 16:47: WBC 11.8 H, RBC 4.12 L, Hgb 12.0 L, Hct 37.9, MCV 91.9, MCH 29.2, MCHC 31.8, RDW 14.5, Plt Count 252, MPV 9.4, Neut % (Auto) 61.8, Lymph % (Auto) 29.4, [place] % (Auto) 6.4, Eos % (Auto) 2.0, Baso % (Auto) 0.3, Neut # (Auto) 7.3, Lymph # (Auto) 3.5, [place] # (Auto) 0.8, Eos # (Auto) 0.2, Baso # (Auto) 0.0 12/31/20 16:47: Sodium 137, Potassium 4.9, Chloride 99, Carbon Dioxide 32 H, Anion Gap 10.9, BUN 24 H, Creatinine 0.50 L, Estimated Creat Clear 41, Estimated GFR 117, Est GFR ( Amer) 142, Glucose 91, Calcium 9.1, Total Bilirubin 0.5, AST 107 H, ALT 63, Alkaline Phosphatase 385 H, Troponin I 0.02, NT-Pro-B Natriuret Pep 563 H, Total Protein 7.4, Albumin 4.1, Globulin 3.3 H, Albumin/Globulin Ratio 1.2, Lipase 55 Result diagrams: 12/31/20 16:47 12/31/20 16:47 Orders (Tests/Meds): ORDERS Category Date Time Status Troponin I Q3H Lab 12/31/20 19:30 Ordered Troponin I Q3H Lab 12/31/20 22:30 Ordered - Radiology Data #1 Image(s): Chest Image Reviewed: Yes I reviewed the patient's radiology results, Yes I reviewed the patient's radiology image, Yes I have reviewed radiologist's interpretation IMPRESSION: 1. Mild bronchial wall thickening. This may represent underlying inflammation or infection, or be chronic. This is unchanged. 2. Masslike appearance medially in the right lung apex appears related to enlarged and nodular right lobe of the thyroid on comparison CT of the cervical spine. Advanced degenerative changes in the shoulders. - ECG Data Tracing #1 I reviewed this ECG and interpreted as documented below: Normal ventricular rate of [address] interval 140 ms, normal QTC. Sinus rhythm with nonspecific changes. ECG initial impression date: 12/31/20 ECG initial impression time: 16:18 Normal Sinus Rhythm: Yes - Reevaluation(s) Time: 18:28 Reevaluation #1: On reevaluation, patient is pain-free. She did just have extensive cardiac work-up. Troponin normal. No specific ST changes. Patient will follow up with PCP and cardiology in 48 hours. Given strict return precautions. Verbalized understanding. Medical Decision Narrative: 85-year-old female presenting with some nonspecific chest pain. Appears to be chronic in nature. Patient did have recent cardiac evaluation. Pain-free at this time. Work-up initiated. Chest Pain HPI - General Chief Complaint: Chest Pain Stated Complaint: chest pain Time Seen by Provider: 12/31/20 16:45 - History of Present Illness HPI narrative: This 85-year-old female presented to the emergency depa
[2020-12-31 17:07] LABS: Alanine Aminotransferase 63 U/L (12-78); Albumin Level 4.1 g/dl (3.5-5.0); Albumin/Globulin Ratio 1.2 (1.1-1.8); Alkaline Phosphatase 385 U/L (38-126); Anion Gap 10.9 mEq/L (5-15); Aspartate Amino Transferase 107 U/L (14-36); Bilirubin,Total 0.5 mg/dl (0.2-1.3); Blood Urea Nitrogen 24 mg/dl (7-17); Calcium 9.1 mg/dl (8.4-10.2); Carbon Dioxide 32 mmol/L (22.0-30.0); Chloride 99 mmol/L (98-107); Creatinine Clearance Estimated 41 mL/min (50-200); Estimated Glomerular Filt Rate 117 ml/min (>60); GFR (African American) 142 ML/MIN (>60); Globulin 3.3 g/dL (1.3-3.2); Glucose 91 mg/dl (74-100); Lipase 55 U/L (23-300); Potassium 4.9 mmoL/L (3.5-5.1); Sodium 137 mmol/L (136-145); Total Protein,Serum 7.4 g/dl (6.3-8.2)
[2020-12-31 17:20] LABS: NT Pro Brain Natriuretic Pep. 563 pg/mL (0-450); Troponin I 0.02 ng/ml (0.00-0.034)
[2020-12-31 17:30] VITALS: BP 126/63; PULSE 89; RESP 16; O2SAT 100
[2020-12-31 18:00] VITALS: BP 142/66; PULSE 89; RESP 18; O2SAT 100
[2020-12-31 19:08] VITALS: BP 142/67; PULSE 84; RESP 18; TEMP 36.7; O2SAT 99
== END 2020-12-31 19:11 | disposition home or self-care (01) ==
PROVIDERS: Emergency Provider Emergency Medicine; PCP Emergency Medicine
DX: R07.89 Other chest pain (principal); K21.9 Gastro-esophageal reflux disease without esophagitis; E78.5 Hyperlipidemia, unspecified; I10 Essential (primary) hypertension; I25.2 Old myocardial infarction; J44.9 Chronic obstructive pulmonary disease, unspecified; Z79.899 Other long term (current) drug therapy; R06.02 Shortness of breath
CPT/HCPCS: 71045; 80053; 83690; 83880; 84484; 85025; 93005; 99283

== ENCOUNTER 2021-04-18 04:46 | Inpatient (IN) | payer MEDICAID, MEDICARE, SELFPAY ==
[2021-04-18] VITALS (31 sets, daily range): BP systolic 93–170; BP diastolic 38–74; PULSE 82–111; RESP 1–24; TEMP 36.4–37.9; O2SAT 90–100; BMI 25.2; BMI 29.2
[2021-04-18 04:20] LABS: ABG Base Excess -4.3 mmol/L (-2.4-2.3); ABG Oxygen Saturation 86 % (90-100); ABG PO2 71.9 mmhg (80-100); ABG TCO2 30.5 mmhg (23-27)
--- NOTE | 2021-04-18 04:20 | PC.NURSE ---
notified nick of critical ph 6.99 and CO2 113.7. spoke with RT about BIPAP and due to pt coughing up bloody secretions RT not comfortable placing BIPAP on pt @ this time
[2021-04-18 04:22] LABS: Allen's Test Acceptable; Oxygen 5LPM %; Source Right Radial
--- NOTE | 2021-04-18 04:23 | ECG_ITS ---
APPROVED REPORT Exam: Resting ECG HR:104 bpm ECG Measurements Heart Rate 104 AXES MA 120 P 25 QRSd 150 QRS -9 QT 365 T 116 QTc 426 Conclusion SINUS TACHYCARDIA LEFT BUNDLE BRANCH BLOCK [120+ ms QRS DURATION, 80+ ms Q/S IN V1/V2, 85+ ms R IN I/aVL/V5/V6] ABNORMAL ECG UNCONFIRMED REPORT Electronically signed by : Robin Carvajal MD 04/22/2021 17:33:06
[2021-04-18 04:24] LABS: ABG PCO2 113.7 mmhg (35.0-45.0); ABG PH 6.99 mmol/L (7.35-7.45)
--- NOTE | 2021-04-18 04:54 | XR_ITS ---
PROCEDURE INFORMATION: Exam: XR Chest Exam date and time: 04/18/2021 4:54 AM Age: 85 years old Clinical indication: Cough; Additional info: Coughing TECHNIQUE: Imaging protocol: XR of the chest. Views: 1 view. COMPARISON: CR XR CHEST PORTABLE 12/31/2020 4:46 PM FINDINGS: Lungs: Chronic interstitial changes are present bilaterally. Increased density seen in the right lung base in the left retrocardiac area likely represent early airspace disease. Pleural spaces: Unremarkable. No pleural effusion. No pneumothorax. Heart/Mediastinum: The heart is prominent. Diaphragm: Elevation the right hemidiaphragm is noted. Bones/joints: Unremarkable. IMPRESSION: Increased airspace disease both lung bases may represent early infiltrate.
--- NOTE | 2021-04-18 04:57 | CT_ITS ---
PROCEDURE INFORMATION: Exam: CT Abdomen And Pelvis With Contrast Exam date and time: 04/18/2021 4:57 AM Age: 85 years old Clinical indication: Other: Coughing up blood TECHNIQUE: Imaging protocol: Computed tomography of the abdomen and pelvis with contrast. Radiation optimization: All CT scans at this facility use at least one of these dose optimization techniques: automated exposure control; mA and/or kV adjustment per patient size (includes targeted exams where dose is matched to clinical indication); or iterative reconstruction. Contrast material: ISOVUE; Contrast volume: 75 ml; Contrast route: IV; COMPARISON: CR XR PELVIS 1-2V 12/05/2020 12:23 AM FINDINGS: Lungs: Consolidation of the right lower lobe and portions of the right middle and left lower lobes are noted. Pleural spaces: Small to moderate left and small right-sided pleural effusions are seen. Heart: Coronary atherosclerosis is present. Liver: Normal. No mass. Gallbladder and bile ducts: Normal. No calcified stones. No ductal dilation. Pancreas: Normal. No ductal dilation. Spleen: Normal. No splenomegaly. Adrenal glands: Normal. No mass. Kidneys and ureters: Normal. No hydronephrosis. Stomach and bowel: Unremarkable. No obstruction. No mucosal thickening. Appendix: No evidence of appendicitis. Intraperitoneal space: Unremarkable. No free air. No significant fluid collection. Vasculature: Unremarkable. No abdominal aortic aneurysm. Lymph nodes: Unremarkable. No enlarged lymph nodes. Urinary bladder: [place] catheter is present in the bladder. Reproductive: Unremarkable as visualized. 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 Chronic changes to the left hip are also present. Soft tissues: Unremarkable. IMPRESSION: 1. No definite acute abdominal or pelvic process is noted. 2. Bibasilar lung consolidation and infiltrates not completely evaluated on this abdominal exam. Small to moderate left and small right-sided pleural effusions are present. 3. Coronary atherosclerosis. 4. Chronic bilateral hip changes as detailed above.
[2021-04-18 05:02] LABS: Basophils # 0.2 K/mm3 (0-0.2); Basophils % 0.8 % (0.1-2.0); Eosinophils # 0.4 K/mm3 (0.0-0.4); Eosinophils % 1.6 % (0.1-12.0); Hematocrit 41.1 % (37.0-47.0); Hemoglobin 12.3 g/dL (12.2-16.2); Lymphocytes # 5.9 K/mm3 (0.7-4.5); Lymphocytes % 22.3 % (10-50); Mean Corpuscular HGB Conc 29.8 g/dL (31.8-35.4); Mean Corpuscular Hemoglobin 29.4 pg (27.0-31.2); Mean Corpuscular Volume 98.4 fl (81-99); Mean Platelet Volume 9.3 fl (7.4-10.4); Monocytes # 0.5 K/mm3 (0.1-1.0); Monocytes % 1.9 % (1.7-9.3); Neutrophils # 19.4 K/mm3 (1.8-7.8); Neutrophils % 73.4 % (37.0-80.0); Platelet Count 349 K/mm3 (142-424); Red Blood Count 4.18 M/mm3 (4.20-5.40); Red Cell Distribution Width 14.3 % (11.5-17.5); White Blood Count 26.5 K/mm3 (4.8-10.8)
[2021-04-18 05:03] LABS: MANUAL DIFFERENTIAL MANUAL DIFFERENTIAL (MANUAL DIFF)
[2021-04-18 05:13] LABS: Alanine Aminotransferase 75 U/L (12-78); Albumin Level 4.6 g/dl (3.5-5.0); Albumin/Globulin Ratio 1.4 (1.1-1.8); Alkaline Phosphatase 195 U/L (38-126); Anion Gap 12.3 mEq/L (5-15); Aspartate Amino Transferase 62 U/L (14-36); Bilirubin,Total 0.6 mg/dl (0.2-1.3); Blood Urea Nitrogen 24 mg/dl (7-17); Calcium 9.4 mg/dl (8.4-10.2); Carbon Dioxide 30 mmol/L (22.0-30.0); Chloride 102 mmol/L (98-107); Creatinine Clearance Estimated 46 mL/min (50-200); Estimated Glomerular Filt Rate 80 ml/min (>60); GFR (African American) 96 ML/MIN (>60); Globulin 3.2 g/dL (1.3-3.2); Glucose 264 mg/dl (74-100); Potassium 4.3 mmoL/L (3.5-5.1); Sodium 140 mmol/L (136-145); Total Protein,Serum 7.8 g/dl (6.3-8.2)
[2021-04-18 05:16] LABS: Lactic Acid 1.9 mmol/L (0.7-2.1)
[2021-04-18 05:19] LABS: C-Reactive Protein 1.6 mg/L (0-4)
[2021-04-18 05:35] LABS: Procalcitonin 0.066 ng/mL (0.0-2.0)
[2021-04-18 05:38] LABS: Erythrocyte Sedimentation Rate 7 mm/hr (0-30)
[2021-04-18 05:42] LABS: Coronavirus 19, PCR Not Detected (NotDetected); Influenza A, PCR Not Detected (NotDetected); Influenza B, PCR Not Detected (NotDetected); Microscopic, Urine URINE MICROSCOPIC (MICROSCOPIC)
--- NOTE | 2021-04-18 05:44 | PC.NURSE ---
spoke with Joslyn Shi daughter and POA verbal consent was given and verified by Praveen STONE for DNR code status.
[2021-04-18 05:49] LABS: Eosinophils % 1 % (0-3); Lymphocytes % 32 % (10-50); Monocytes % 2 % (2-9); Neutrophils % 65 % (42-76); Total Cells Counted 100
[2021-04-18 05:50] LABS: Macrocytosis 1+; Platelet Estimate Normal
[2021-04-18 05:52] LABS: Appearance,Urine CLEAR (Clear); Bilirubin,Urine Negative (Negative); Blood, Urine Negative (Negative); Color,Urine YELLOW (Yellow); Glucose,Urine (UA) Negative (Negative); Ketones,Urine Negative (Negative); Leukocyte Esterase,Urine Negative (Negative); Nitrate,Urine Negative (Negative); Protein,Urine TRACE (Negative); Specific Gravity, Urine 1.025 (1.005-1.030); Urobilinogen,Urine 0.2 EU/dl (0.2)
--- NOTE | 2021-04-18 05:59 | CT_ITS ---
PROCEDURE INFORMATION: Exam: CTA Chest With Contrast Exam date and time: 04/18/2021 5:59 AM Age: 85 years old Clinical indication: Shortness of breath; Patient HX: SOA, cough TECHNIQUE: Imaging protocol: Computed tomographic angiography of the chest with contrast. 3D rendering (Not supervised by radiologist): MIP and/or 3D reconstructed images were created by the technologist. Radiation optimization: All CT scans at this facility use at least one of these dose optimization techniques: automated exposure control; mA and/or kV adjustment per patient size (includes targeted exams where dose is matched to clinical indication); or iterative reconstruction. Contrast material: ISOVUE 370; Contrast volume: 70 ml; Contrast route: INTRAVENOUS (IV); COMPARISON: CR XR CHEST PORTABLE 04/18/2021 4:59 AM FINDINGS: Pulmonary arteries: Normal. No pulmonary emboli. Aorta: Unremarkable. No aortic aneurysm. No aortic dissection. Lungs: Extensive bilateral airspace disease is present with areas of consolidation in the lower lobes bilaterally. Dependent atelectasis is seen. Some patchy airspace disease is also noted. Pleural spaces: Moderate right-sided and small to moderate left-sided pleural effusion are noted. Heart: Coronary atherosclerosis is present Lymph nodes: Unremarkable. No enlarged lymph nodes. Bones/joints: Prominence of the right thyroid gland is noted which extends below the sternal notch. Soft tissues: Unremarkable. IMPRESSION: 1. No evidence of pulmonary embolus. 2. Extensive bilateral airspace disease and consolidation consistent with infiltrates. 3. Prominent right thyroid gland extending below the sternal notch consistent with goiter. 4. Coronary atherosclerosis. 5. Moderate right and small left-sided pleural effusion.
[2021-04-18 06:14] LABS: Troponin I 0.03 ng/ml (0.00-0.034)
[2021-04-18 06:51] LABS: Bacteria,Urine 2+ /lpf; Squamous Epithelial Cell,Urine Occasional #/hpf (0-5)
--- NOTE | 2021-04-18 06:53 | HMH.EDSOB ---
ED Disposition Clinical Impression: Left bundle branch block, COPD with acute exacerbation, Cough with hemoptysis, Severe sepsis with acute organ dysfunction Respiratory failure with hypercapnia Qualifiers: Chronicity: acute on chronic Qualified Code(s): J96.22 - Acute and chronic respiratory failure with hypercapnia Disposition: Admitted As Inpatient Condition on Discharge: Serious Instructions: DI for Diarrhea and Traveler's Diarrhea -- Adult, DI for Diarrhea and Traveler's Diarrhea -- Child, DI for Nausea -- Adult, DI for Nausea -- Child Referrals: Johnny Marion MD [Primary Care Provider] - - Critical Care Critical Care Time: No Attestation: On 04/18/21, the high probability of a clinically significant, sudden or life threatening deterioration of the following system(s) required my full and direct attention, intervention and personal management. The time I documented below is in addition to time spent performing reported procedures but includes the following listed in this critical care notation. Medical Decision Making - Medical Records Medical records reviewed: Yes: I reviewed the patient's medical records. - Leonel Inquiry Pt receiving controlled substance: No Vital Signs: 04/18/21 03:24 04/18/21 04:00 04/18/21 04:30 Temperature 100.2 F H Temperature Source Rectal Pulse Rate 100 H 111 H Pulse Rate [Left] 96 H Respiratory Rate 22 Blood Pressure 126/60 133/63 Blood Pressure [Right Arm] 133/63 Blood Pressure Mean Blood Pressure Mean [Right Arm] 86 02 Sat by Pulse Oximetry 91 L 90 L 97 Oxygen Delivery Method Nasal Cannula Nasal Cannula Nasal Cannula Oxygen Flow Rate (LPM) 6 6 6 04/18/21 05:00 04/18/21 05:30 Temperature Temperature Source Pulse Rate 109 H 102 H Pulse Rate [Left] Respiratory Rate Blood Pressure 129/58 L 117/43 L Blood Pressure [Right Arm] Blood Pressure Mean 81 Blood Pressure Mean [Right Arm] 02 Sat by Pulse Oximetry 95 96 Oxygen Delivery Method Nasal Cannula Nasal Cannula Oxygen Flow Rate (LPM) 6 6 - Lab Data Lab results reviewed: Yes: I reviewed the patient's lab results. Lab Results 04/18/21 04:17: Specimen Source Right radial, O2 % 5lpm, ABG pH 6.99 L*, ABG pCO2 113.7 H, ABG pO2 71.9 L, ABG HCO3 27.0 H, ABG Total CO2 30.5 H, ABG O2 Saturation 86 L*, ABG Base Excess -4.3 L, Jesus Test Acceptable 04/18/21 04:25: WBC 26.5 H*, RBC 4.18 L, Hgb 12.3, Hct 41.1, MCV 98.4, MCH 29.4, MCHC 29.8 L, RDW 14.3, Plt Count 349, MPV 9.3, Neut % (Auto) 73.4, Lymph % (Auto) 22.3, [place] % (Auto) 1.9, Eos % (Auto) 1.6, Baso % (Auto) 0.8, Neut # (Auto) 19.4 H, Lymph # (Auto) 5.9 H, [place] # (Auto) 0.5, Eos # (Auto) 0.4, Baso # (Auto) 0.2, Total Counted 100, Neutrophils % (Manual) 65, Lymphocytes % (Manual) 32, Monocytes % (Manual) 2, Eosinophils % (Manual) 1, Platelet Estimate Normal, RBC Morphology Not Reportable, Macrocytosis 1+, ESR 7 04/18/21 04:25: Sodium 140, Potassium 4.3, Chloride 102, Carbon Dioxide 30, Anion Gap 12.3, BUN 24 H, Creatinine 0.70, Estimated Creat Clear 46, Estimated GFR 80, Est GFR ( Amer) 96, Glucose 264 H, Calcium 9.4, Total Bilirubin 0.6, AST 62 H, ALT 75, Alkaline Phosphatase 195 H, C-Reactive Protein 1.6, Total Protein 7.8, Albumin 4.6, Globulin 3.2, Albumin/Globulin Ratio 1.4, Procalcitonin 0.066 04/18/21 04:25: Lactate 1.9 04/18/21 04:25: Troponin I 0.03 04/18/21 05:34: Urine Color Yellow, Urine Appearance Clear, Urine pH 6.0, Ur Specific [place] 1.025, Urine Protein Trace, Urine Glucose (UA) Negative, Urine Ketones Negative, Urine Blood Negative, Urine Nitrate Negative, Urine Bilirubin Negative, Urine Urobilinogen 0.2, Ur Leukocyte Esterase Negative, Urine WBC 3-5, Ur Squamous Epith Cells Occasional, Urine Bacteria 2+ 04/18/21 05:34: SARS-CoV-2 (PCR) Not detected, Influenza A Untype (PCR) Not detected, Influenza Type B (PCR) Not detected Result diagrams: 04/18/21 04:25 04/18/21 04:25 Orders (Tests/Meds): ED MEDICATIONS Generic N
--- NOTE | 2021-04-18 07:18 | PC.NURSE ---
Called respiratory to place pt on bipap
--- NOTE | 2021-04-18 08:17 | HMH.PHACONS ---
- Pharmacy Consult Date: 04/18/21 Time: 08:18 Referring provider: DR. GARCIA Reason for Consult:: VANCOMYCIN DOSING Allergies and ADEs:: Allergies Allergy/AdvReac Type Severity Reaction Status Date / Time alendronate sodium Allergy Unknown Verified 12/19/20 09:43 [From Fosamax] NSAIDS (Non-Steroidal Allergy Unknown Verified 12/19/20 09:43 Anti-Inflamma Penicillins Allergy Unknown Verified 12/19/20 09:43 Home Medications:: Home Medications Medication Instructions Recorded Confirmed Type acetaminophen 500 mg tablet 1,000 mg PO Q4HP PRN 12/11/19 12/19/20 History atorvastatin 40 mg tablet 40 mg PO HS 12/11/19 12/19/20 History bisacodyl 10 mg rectal suppository 10 mg [place] TUTH PRN 12/11/19 12/19/20 History clopidogrel 75 mg tablet 75 mg PO DAILY 12/11/19 12/19/20 History docusate sodium 250 mg capsule 250 mg PO DAILY 12/11/19 12/19/20 History ipratropium 0.5 mg-albuterol 3 mg 3 ml IH Q8HP PRN 12/11/19 12/19/20 History (2.5 mg base)/3 mL nebulization soln lisinopril 2.5 mg tablet 2.5 mg PO DAILY 12/11/19 12/19/20 History melatonin 3 mg capsule 3 mg PO HS 12/11/19 12/19/20 History ondansetron HCl 4 mg tablet 4 mg PO Q6HP PRN 12/11/19 12/19/20 History ropinirole 2 mg tablet,extended 2 mg PO BID 12/11/19 12/19/20 History release 24 hr Aspirin [Aspirin 81mg chewable 81 mg PO DAILY 12/10/20 12/19/20 History tab] Metoprolol Tartrate [Lopressor 12.5 mg PO BID 12/10/20 12/19/20 History 25mg tablet] Sertraline HCl 25 mg PO DAILY 12/10/20 12/19/20 History Furosemide [Lasix 40mg tab] 40 mg PO DAILY 30 Days #30 tab 12/12/20 12/19/20 Rx levoFLOXacin [Levofloxacin 750MG 750 mg PO DAILY #7 tab 12/12/20 12/19/20 Rx Tablet*] spironolactone 25 mg tablet 25 mg PO DAILY #30 tab 12/19/20 12/19/20 Rx hydrocodone 5 mg-acetaminophen 325 1 tab PO BID #60 tab 03/21/21 Rx mg tablet diazepam 5 mg tablet 2.5 mg PO BID #30 tab 03/26/21 Rx gabapentin 100 mg capsule 100 mg PO BID #60 cap 03/29/21 Rx Height: 1.68 m Weight: 71.123 kg Laboratory Results:: Laboratory Results - last 24 hr 04/18/21 04:17: Specimen Source Right radial, O2 % 5lpm, ABG pH 6.99 L*, ABG pCO2 113.7 H, ABG pO2 71.9 L, ABG HCO3 27.0 H, ABG Total CO2 30.5 H, ABG O2 Saturation 86 L*, ABG Base Excess -4.3 L, Jesus Test Acceptable 04/18/21 04:25: WBC 26.5 H*, RBC 4.18 L, Hgb 12.3, Hct 41.1, MCV 98.4, MCH 29.4, MCHC 29.8 L, RDW 14.3, Plt Count 349, MPV 9.3, Neut % (Auto) 73.4, Lymph % (Auto) 22.3, [place] % (Auto) 1.9, Eos % (Auto) 1.6, Baso % (Auto) 0.8, Neut # (Auto) 19.4 H, Lymph # (Auto) 5.9 H, [place] # (Auto) 0.5, Eos # (Auto) 0.4, Baso # (Auto) 0.2, Total Counted 100, Neutrophils % (Manual) 65, Lymphocytes % (Manual) 32, Monocytes % (Manual) 2, Eosinophils % (Manual) 1, Platelet Estimate Normal, RBC Morphology Not Reportable, Macrocytosis 1+, ESR 7 04/18/21 04:25: Sodium 140, Potassium 4.3, Chloride 102, Carbon Dioxide 30, Anion Gap 12.3, BUN 24 H, Creatinine 0.70, Estimated Creat Clear 46, Estimated GFR 80, Est GFR ( Amer) 96, Glucose 264 H, Calcium 9.4, Total Bilirubin 0.6, AST 62 H, ALT 75, Alkaline Phosphatase 195 H, C-Reactive Protein 1.6, Total Protein 7.8, Albumin 4.6, Globulin 3.2, Albumin/Globulin Ratio 1.4, Procalcitonin 0.066 04/18/21 04:25: Lactate 1.9 04/18/21 04:25: Troponin I 0.03 04/18/21 05:34: Urine Color Yellow, Urine Appearance Clear, Urine pH 6.0, Ur Specific [place] 1.025, Urine Protein Trace, Urine Glucose (UA) Negative, Urine Ketones Negative, Urine Blood Negative, Urine Nitrate Negative, Urine Bilirubin Negative, Urine Urobilinogen 0.2, Ur Leukocyte Esterase Negative, Urine WBC 3-5, Ur Squamous Epith Cells Occasional, Urine Bacteria 2+ 04/18/21 05:34: SARS-CoV-2 (PCR) Not detected, Influenza A Untype (PCR) Not detected, Influenza Type B (PCR) Not detected Medical History: Reports:: Anxiety, Congestive Heart Failure, Chronic Obstructive Pulmonary Disease (COPD), Gastroesophageal Reflux Disease(GERD), Hyperlipidemia, Hyperte
--- NOTE | 2021-04-18 08:55 | PC.NURSE ---
PT tolerating bipap well at this time. Well be holding in ED until bed available on the floor.
--- NOTE | 2021-04-18 08:56 | PC.NURSE ---
Pharmacy consulted about vancomycin. Medication brought down by Jimmy. Adam infusing at this time.
--- NOTE | 2021-04-18 09:38 | PC.NURSE ---
PT repositioned in bed.
[2021-04-18 09:52] LABS: Troponin I 0.35 ng/ml (0.00-0.034)
--- NOTE | 2021-04-18 09:53 | PC.NURSE ---
Taniya from lab called a critical troponin on pt of .35, info was repeated and verified.
--- NOTE | 2021-04-18 09:56 | HMH.HP ---
*Admission Date: 04/18/21 *Chief complaint: soa *History of present illness: 85-year-old female has history of COPD presented to the ED. Patient presents from [facility] reported vomiting bright red blood, alf staff stated she started feeling bad around 3 pm yesterday but now is very sick with n\v with bright red blood. While in ed she had worsening respiratory distress and altered mentation and found to be having hypercarbic respiratory failure, Pt placed on bipap. Pt is a DNR. Pt admitted for pneumonia with resp failure and pulm consult placed. [facility] History I have reviewed the patient's past medical history: Yes Medical History: Reports:: Anxiety, Congestive Heart Failure, Chronic Obstructive Pulmonary Disease (COPD), Gastroesophageal Reflux Disease(GERD), Hyperlipidemia, Hypertension, Myocardial Infarction Denies:: Diabetes Mellitus Type 1 *Have you ever received a pneumonia vaccine?: Yes *Have you received a flu vaccine this season?: Yes Other Medical History: Reports: Arthritis - *Social History Smoking Status: Never smoker Alcohol Intake: never *Occupational Status:: retired Housing: alf *Travel in the last 8 weeks: None - Psychiatric History Pschychiatric History:: Reports:: Anxiety Family Hx:: Heart Attack Review of Systems - Review of Systems Review of systems:: unable to obtain, other, pertinent systems reviewed and negative unless documented below - Constitutional Reports weakness - Eyes Denies pain - ENT Denies bleeding gums - *Cardiovascular Denies chest pain at rest - *Respiratory Reports chest congestion, Reports cough, Reports shortness of breath - *Gastrointestinal Reports vomiting blood, Reports vomiting, Denies abdominal pain, Denies bright, red blood in stools - *Genitourinary Denies difficulty urinating - *Musculoskeletal Denies joint pain - Integumentary/Breasts Denies rash - *Neurologic Denies dizziness - Psychiatric Denies difficulty concentrating - Endocrine Denies excessive sweating - Hematologic/Lymphatic Denies easy bruising - Allergic/Immunologic Denies itchy eyes Comments: ros per alf staff Meds Home Medications Medication Instructions Recorded Confirmed Type acetaminophen 500 mg tablet 1,000 mg PO Q4HP PRN 12/11/19 04/18/21 History atorvastatin 40 mg tablet 40 mg PO HS 12/11/19 04/18/21 History bisacodyl 10 mg rectal suppository 10 mg RC TUTH PRN 12/11/19 04/18/21 History clopidogrel 75 mg tablet 75 mg PO DAILY 12/11/19 04/18/21 History docusate sodium 250 mg capsule 250 mg PO DAILY 12/11/19 04/18/21 History lisinopril 2.5 mg tablet 2.5 mg PO DAILY 12/11/19 04/18/21 History melatonin 3 mg capsule 3 mg PO 1700 12/11/19 04/18/21 History ondansetron HCl 4 mg tablet 4 mg PO Q6HP PRN 12/11/19 04/18/21 History ropinirole 2 mg tablet,extended 2 mg PO BID 12/11/19 04/18/21 History release 24 hr Aspirin [Aspirin 81mg chewable 81 mg PO DAILY 12/10/20 04/18/21 History tab] Metoprolol Tartrate [Lopressor 12.5 mg PO BID 12/10/20 04/18/21 History 25mg tablet] Sertraline HCl 25 mg PO DAILY 12/10/20 04/18/21 History hydrocodone 5 mg-acetaminophen 325 1 tab PO BID #60 tab 03/21/21 04/18/21 Rx mg tablet diazepam 5 mg tablet 2.5 mg PO BID #30 tab 03/26/21 04/18/21 Rx gabapentin 100 mg capsule 100 mg PO BID #60 cap 03/29/21 04/18/21 Rx Furosemide [Lasix 40mg tab] 40 mg PO DAILY 04/18/21 04/18/21 History Spironolactone [Spironolactone 25 mg PO DAILY 04/18/21 04/18/21 History 25mg Tablet] guaiFENesin [Robafen] 10 ml PO QIDP PRN 04/18/21 04/18/21 History Allergies Allergy/AdvReac Type Severity Reaction Status Date / Time alendronate sodium Allergy Unknown Verified 12/19/20 09:43 [From Fosamax] NSAIDS (Non-Steroidal Allergy Unknown Verified 12/19/20 09:43 Anti-Inflamma Penicillins Allergy Unknown Verified 12/19/20 09:43 Exam Vital signs and Labs for Last 24 Hours: Temp Pulse Resp
--- NOTE | 2021-04-18 10:03 | SW/DCPLANNER ---
Addendum entered by Magy Gil 04/23/21 09:43: The plan is for this patient to return to [facility] today. Per Malou with [facility] patient will NOT require an additional COVID swab. Addendum entered by Magy Gil 04/22/21 09:42: Updated patient information has been faxed to Malou w/ [facility]. Addendum entered by Magy Gil 04/19/21 09:43: I have faxed updates to Malou at [place] regarding this patient. Original Note: This patient currently resides at [facility]. I spoke with Malou and patient is [facility] level of care. I will continue to follow up with Malou until patient is medically stable for discharge.
[2021-04-18 12:25] LABS: Troponin I 0.45 ng/ml (0.00-0.034)
--- NOTE | 2021-04-18 12:26 | PC.NURSE ---
Pt troponin is 0.45. Repeated and verified, contacting Dr. Marion at this time
--- NOTE | 2021-04-18 13:14 | PC.NURSE ---
Dr. Lopez at bedside
--- NOTE | 2021-04-18 13:16 | HMH.PHAINT ---
MEDICATION RECONCILIATION COMPLETED ON PATIENT USING [facility] FROM [facility]. -ALVAREZ WALKER, JIMMIED
--- NOTE | 2021-04-18 13:25 | PC.NURSE ---
Dr. devlin at bedside. No new orders at this time.
--- NOTE | 2021-04-18 13:25 | PC.NURSE ---
Spoke with Martell about trop and she advised to place cardiology consult and let them assess her. No other orders at this time.
--- NOTE | 2021-04-18 13:26 | PC.NURSE ---
Pt cleaned up, turned to her right side with pillow placed behind her back, fresh linens placed on bed.
--- NOTE | 2021-04-18 13:29 | PC.NURSE ---
Notified cardiology of consults
--- NOTE | 2021-04-18 13:42 | HMH.PULMCON ---
*Admission Date: 04/18/21 *Reason for consult:: Acute hypercarbic respiratory failure, community-acquired pneumonia *History of present illness: Limited, obtained from the chart review. Patient on BiPAP, confused. Ms. Osullivan is a 85-year-old female has history of COPD presented to the hospital with worsening respiratory distress and altered mentation and found to be having hypercarbic respiratory failure and pulmonary was called for further management. [facility] History I have reviewed the patient's past medical history: Yes Medical History: Reports:: Anxiety, Congestive Heart Failure, Chronic Obstructive Pulmonary Disease (COPD), Gastroesophageal Reflux Disease(GERD), Hyperlipidemia, Hypertension, Myocardial Infarction Denies:: Diabetes Mellitus Type 1 *Have you ever received a pneumonia vaccine?: Yes *Have you received a flu vaccine this season?: Yes Other Medical History: Reports: Arthritis Other Surgeries: Yes: Other - *Social History Last grade of school completed: Some college Smoking Status: Former smoker Tobacco Type: cigarettes Alcohol Intake: never Alcohol Intake Frequency:: other Substance Use Type: other Last Used Substance: unknown *Occupational Status:: retired Housing: fpc *Travel in the last 8 weeks: None - Psychiatric History Expresses thoughts of harming self/others: Vague Suicide Plan Description: No Plan Pschychiatric History:: Reports:: Anxiety Family Hx:: Heart Attack ROS - Review of Systems Review of systems:: unable to obtain Meds Home Medications Medication Instructions Recorded Confirmed Type acetaminophen 500 mg tablet 1,000 mg PO Q4HP PRN 12/11/19 04/18/21 History atorvastatin 40 mg tablet 40 mg PO HS 12/11/19 04/18/21 History bisacodyl 10 mg rectal suppository 10 mg RC TUTH PRN 12/11/19 04/18/21 History clopidogrel 75 mg tablet 75 mg PO DAILY 12/11/19 04/18/21 History docusate sodium 250 mg capsule 250 mg PO DAILY 12/11/19 04/18/21 History lisinopril 2.5 mg tablet 2.5 mg PO DAILY 12/11/19 04/18/21 History melatonin 3 mg capsule 3 mg PO 1700 12/11/19 04/18/21 History ondansetron HCl 4 mg tablet 4 mg PO Q6HP PRN 12/11/19 04/18/21 History ropinirole 2 mg tablet,extended 2 mg PO BID 12/11/19 04/18/21 History release 24 hr Aspirin [Aspirin 81mg chewable 81 mg PO DAILY 12/10/20 04/18/21 History tab] Metoprolol Tartrate [Lopressor 12.5 mg PO BID 12/10/20 04/18/21 History 25mg tablet] Sertraline HCl 25 mg PO DAILY 12/10/20 04/18/21 History hydrocodone 5 mg-acetaminophen 325 1 tab PO BID #60 tab 03/21/21 04/18/21 Rx mg tablet diazepam 5 mg tablet 2.5 mg PO BID #30 tab 03/26/21 04/18/21 Rx gabapentin 100 mg capsule 100 mg PO BID #60 cap 03/29/21 04/18/21 Rx Furosemide [Lasix 40mg tablet] 40 mg PO DAILY 04/18/21 04/18/21 History Spironolactone [Spironolactone 25 mg PO DAILY 04/18/21 04/18/21 History 25mg Tablet] guaiFENesin [Robafen] 10 ml PO QIDP PRN 04/18/21 04/18/21 History Budesonide [Pulmicort 0.5mg/2mL 0.5 mg IH BIDRT 30 Days #60 each 04/23/21 Rx neb] Ipratropium/Albuterol Sulfate 3 ml IH Q6RT 7 Days #24 each 04/23/21 Rx [Duoneb 3mL neb] levoFLOXacin [Levaquin 500mg 500 mg PO DAILY 5 Days #5 tab 04/23/21 Rx tab] predniSONE [Prednisone 20mg 20 mg PO BID #10 tab 04/23/21 Rx Tab] Allergies Allergy/AdvReac Type Severity Reaction Status Date / Time alendronate sodium Allergy Unknown Verified 12/19/20 09:43 [From Fosamax] NSAIDS (Non-Steroidal Allergy Unknown Verified 12/19/20 09:43 Anti-Inflamma Penicillins Allergy Unknown Verified 12/19/20 09:43 Exam - Constitutional Constitutional:: Absent: no acute distress, comfortable - HENMT Exam HENMT: Present: normocephalic - Eye Exam Eyes:: Present: normal appearance both eyes and related structures - Neck Exam Neck:: Present: normal visual inspection - Respiratory Exam Respiratory:: Present: respiratory distress, decreased breath sounds, wheezing. Absent: abl
--- NOTE | 2021-04-18 14:43 | PC.NURSE ---
Cardiology at bedside
--- NOTE | 2021-04-18 14:58 | PC.NURSE ---
Respiratory at bedside
--- NOTE | 2021-04-18 15:08 | CA_ITS ---
APPROVED REPORT EXAM: Comprehensive 2D, Doppler, and color-flow Echocardiogram [facility] Consultant: Rox Fish CRT Ht: 5 ft 6 in Wt: 156lbs BSA: 1.80 BP: 146/96 mmHg Indications: DRN, SOB, Congestive Heart Failure, COPD, Hyperlipidemia, Hypertension/HDD, NSTEMI, GERD 2D Dimensions LVOT 2.20 cm (M/F) 1.5-2.5 LA Volume 41.20 mL LA Volume Index 22.90 mL/m2 (M/F) 16-34 M-Mode Dimensions RVDd 3.93 cm (0.9-2.6) LA Diam 3.46 cm (1.9-4.0) LVDd 3.84 cm (3.5-5.7) Ao Diam 3.89 cm (2.0-3.7) LVDs 2.96 cm (3.5-5.7) IVSd 1.24 cm (0.6-1.1) PWd 0.60 cm (0.6-1.1) EF (Teich) 46.60% FS 22.90% EDV (Teich) 63.50 mL TAPSE 1.83 (<1.7) ESV (Teich) 33.90 mL LV Diastology E Decel Time 220.00 (160-240 msec) E/A Ratio 0.78 MED E' 6.70 (< 7 cm/sec) MED A' 11.70 cm/s E'/MED E' Ratio 11.27 (>14) LAT E' 5.60 (<10 cm/sec) LAT A' 12.40 cm/s E/LAT E' Ratio 13.48 (>14) Aortic Valve AO Peak GR. 8.40 mmHg Mitral Valve MV E Max Marcelo. 75.00 (40-130 cm/s) MV A Velocity 96.00 (40-130 cm/s) E/A Ratio 0.78 MV Decel. Time 220.00 (160-240 ms) MV PHT 64.00 ms Pulmonary Valve PV Peak Velocity 100.00 (50-150 cm/s) Tricuspid Valve TR P. Velocity 222.00 cm/s RAP Estimate 10.00 mmHg RVSP 29.70 mmHg Left Ventricle Remains mildly enlarged, left ventricle is normal size, mild concentric left ventricular hypertrophy, visually estimated ejection fraction 55% with no regional wall motion abnormality, grade 1 diastolic dysfunction seen without tissue Doppler evidence of raise left atrial pressure. Right Ventricle Right atrium and right ventricle are mildly enlarged with normal contractility. Aortic Valve Aortic valve is thickened and calcified without Doppler evidence of aortic stenosis or aortic insufficiency. Mitral Valve Mitral valve leaflets are minimally thickened, there is mild mitral regurgitation. Tricuspid Valve Tricuspid valve is grossly normal, there is mild tricuspid regurgitation, tricuspid regurgitation jet velocity is inadequate for calculation of the right ventricular systolic pressure. Pulmonic Valve Pulmonic valve is poorly visualized. Great Vessels Aortic root is normal size, ascending aorta is not well visualized Inferior vena cava is not well visualized. Pericardium No significant pericardial effusion noted. Conclusion 1. Biatrial enlargement, normal left ventricular size, mild concentric left ventricular hypertrophy, visually estimated ejection fraction 55% with no regional wall motion abnormality, endocardial surfaces are poorly visualized, grade 1 diastolic dysfunction seen without tissue Doppler evidence of raise left atrial pressure. 2. Mildly enlarged right ventricle with normal contractility. 3. Thickened and calcified aortic valve without Doppler evidence of aortic stenosis. Aortic root is normal size, ascending aorta is not well visualized. 4. Mild mitral and tricuspid regurgitation. 5. No significant pericardial effusion noted. Electronically signed by : Michael Galloway MD 04/19/2021 10:16:34
--- NOTE | 2021-04-18 15:09 | HMH.CNCARD ---
History of Present Illness Consult date: 04/18/21 Requesting physician: Johnny Marion Consult reason: shortness of breath Chief complaint: sob History of present illness: This is an 85-year-old white female presented to the emergency department from [facility] with complaints of vomiting bright red blood. She had actually been nauseous and vomiting the day before but then today started vomiting bright red blood. While in the emergency department the patient had worsening respiratory distress and altered mental status. She was found to have acute hypercarbic respiratory failure and was placed on BiPAP. The patient does have pneumonia and pulmonology has been consulted. The patient had a recent cardiac catheterization in November 2020 with mild nonocclusive coronary artery disease. She does have a slightly elevated troponin which is most likely from demand ischemia. [facility] History I have reviewed the patient's past medical history: Yes Medical History: Reports:: Anxiety, Atherosclerotic Heart Disease, Congestive Heart Failure, Chronic Obstructive Pulmonary Disease (COPD), Coronary Artery Disease, Gastroesophageal Reflux Disease(GERD), Hyperlipidemia, Hypertension, Myocardial Infarction Denies:: Diabetes Mellitus Type 1 *Have you ever received a pneumonia vaccine?: Yes *Have you received a flu vaccine this season?: Yes Other Medical History: Reports: Arthritis Other Surgeries: Yes: Other - *Social History Last grade of school completed: Some college Smoking Status: Never smoker Alcohol Intake: never Alcohol Intake Frequency:: other Substance Use Type: other Last Used Substance: unknown *Occupational Status:: retired Housing: [facility] *Travel in the last 8 weeks: None - Psychiatric History Expresses thoughts of harming self/others: Vague Suicide Plan Description: No Plan Pschychiatric History:: Reports:: Anxiety Family Hx:: Heart Attack Meds Home Medications Medication Instructions Recorded Confirmed Type acetaminophen 500 mg tablet 1,000 mg PO Q4HP PRN 12/11/19 04/18/21 History atorvastatin 40 mg tablet 40 mg PO HS 12/11/19 04/18/21 History bisacodyl 10 mg rectal suppository 10 mg RC TUTH PRN 12/11/19 04/18/21 History clopidogrel 75 mg tablet 75 mg PO DAILY 12/11/19 04/18/21 History docusate sodium 250 mg capsule 250 mg PO DAILY 12/11/19 04/18/21 History lisinopril 2.5 mg tablet 2.5 mg PO DAILY 12/11/19 04/18/21 History melatonin 3 mg capsule 3 mg PO 1700 12/11/19 04/18/21 History ondansetron HCl 4 mg tablet 4 mg PO Q6HP PRN 12/11/19 04/18/21 History ropinirole 2 mg tablet,extended 2 mg PO BID 12/11/19 04/18/21 History release 24 hr Aspirin [Aspirin 81mg chewable 81 mg PO DAILY 12/10/20 04/18/21 History tab] Metoprolol Tartrate [Lopressor 12.5 mg PO BID 12/10/20 04/18/21 History 25mg tablet] Sertraline HCl 25 mg PO DAILY 12/10/20 04/18/21 History hydrocodone 5 mg-acetaminophen 325 1 tab PO BID #60 tab 03/21/21 04/18/21 Rx mg tablet diazepam 5 mg tablet 2.5 mg PO BID #30 tab 03/26/21 04/18/21 Rx gabapentin 100 mg capsule 100 mg PO BID #60 cap 03/29/21 04/18/21 Rx Furosemide [Lasix 40mg tab] 40 mg PO DAILY 04/18/21 04/18/21 History Spironolactone [Spironolactone 25 mg PO DAILY 04/18/21 04/18/21 History 25mg Tablet] guaiFENesin [Robafen] 10 ml PO QIDP PRN 04/18/21 04/18/21 History Allergies Allergy/AdvReac Type Severity Reaction Status Date / Time alendronate sodium Allergy Unknown Verified 12/19/20 09:43 [From Fosamax] NSAIDS (Non-Steroidal Allergy Unknown Verified 12/19/20 09:43 Anti-Inflamma Penicillins Allergy Unknown Verified 12/19/20 09:43 Exam Vital signs and Labs for Last 24 Hours: Temp Pulse Resp BP Pulse Ox 100.2 F H 90 20 170/74 H 97 04/18/21 03:24 04/18/21 14:00 04/18/21 11:18 04/18/21 14:00 04/18/21 14:00 Laboratory Results - last 24 hr 04/18/21 04:17: Specimen Source Right radial, O2 % 5lpm, ABG pH 6.99 L*, ABG pCO2 113.7 H,
--- NOTE | 2021-04-18 15:54 | PC.NURSE ---
Echo at bedside
[2021-04-18 17:37] LABS: ABG Base Excess -1.1 mmol/L (-2.4-2.3); ABG HCO3 24.3 mmhg (22.0-26.0); ABG Oxygen Saturation 97 % (90-100); ABG PH 7.36 mmol/L (7.35-7.45); ABG PO2 89.5 mmhg (80-100); ABG TCO2 25.6 mmhg (23-27); Oxygen 100 %
[2021-04-18 17:38] LABS: Allen's Test acceptable; Source rr
--- NOTE | 2021-04-18 20:30 | PC.NURSE ---
Clarified order for solu medrol with Dr. Aguilar. 40 mg IV q 8 hrs.
--- NOTE | 2021-04-18 20:39 | PC.NURSE ---
Pt poor historian for history. Alert with confusion. VSS. CB in reach.
[2021-04-19] VITALS (9 sets, daily range): BP systolic 98–130; BP diastolic 40–74; PULSE 89–106; RESP 17–22; TEMP 36.6–37.7; O2SAT 92–98; BMI 32.0
[2021-04-19 06:32] LABS: Basophils % 0.1 % (0.1-2.0); Hematocrit 30.3 % (37.0-47.0); Hemoglobin 9.4 g/dL (12.2-16.2); Lymphocytes # 1.1 K/mm3 (0.7-4.5); Lymphocytes % 7.3 % (10-50); Mean Corpuscular Hemoglobin 29.2 pg (27.0-31.2); Mean Corpuscular Volume 94.2 fl (81-99); Mean Platelet Volume 9.9 fl (7.4-10.4); Monocytes # 0.5 K/mm3 (0.1-1.0); Monocytes % 3.5 % (1.7-9.3); Neutrophils # 13.4 K/mm3 (1.8-7.8); Neutrophils % 89.1 % (37.0-80.0); Platelet Count 176 K/mm3 (142-424); Red Blood Count 3.21 M/mm3 (4.20-5.40); Red Cell Distribution Width 14.6 % (11.5-17.5)
[2021-04-19 06:39] LABS: Anion Gap 9.4 mEq/L (5-15); Blood Urea Nitrogen 30 mg/dl (7-17); Calcium 8.7 mg/dl (8.4-10.2); Carbon Dioxide 26 mmol/L (22.0-30.0); Chloride 109 mmol/L (98-107); Creatinine Clearance Estimated 48 mL/min (50-200); Estimated Glomerular Filt Rate 80 ml/min (>60); GFR (African American) 96 ML/MIN (>60); Glucose 147 mg/dl (74-100); MANUAL DIFFERENTIAL MANUAL DIFFERENTIAL (MANUAL DIFF); Magnesium 1.7 mg/dl (1.6-2.3); Potassium 4.4 mmoL/L (3.5-5.1); Sodium 140 mmol/L (136-145)
--- NOTE | 2021-04-19 07:13 | P.CONPHA_ITS ---
[facility] Pharmacy VTE Monitoring - Patient Demographics Admission date: 04/18/21 Report Date: 04/19/21 Time: 07:13 Allergies/Adverse Reactions: Patient Allergies alendronate sodium [From Fosamax] Allergy (Unknown, Verified 12/19/20 09:43) NSAIDS (Non-Steroidal Anti-Inflamma Allergy (Unknown, Verified 12/19/20 09:43) Penicillins Allergy (Unknown, Verified 12/19/20 09:43) Height: 1.52 m Weight: 73.936 kg Patient Problems: Current Active Problems Left bundle branch block (Acute) Respiratory failure with hypercapnia (Acute) COPD with acute exacerbation (Acute) Cough with hemoptysis (Acute) Severe sepsis with acute organ dysfunction (Acute) CAD (coronary artery disease) (Chronic) IVCD (intraventricular conduction defect) (Acute) Elevated troponin (Acute) Gastroesophageal reflux disease (Chronic) Dementia (Chronic) - VTE Risk Labs: VTE Related Lab Results Hgb 9.4 g/dL (12.2-16.2) L 04/19/21 06:10 Hct 30.3 % (37.0-47.0) L 04/19/21 06:10 Plt Count 176 K/mm3 (142-424) D 04/19/21 06:10 BUN 30 mg/dl (7-17) H 04/19/21 06:10 Creatinine 0.70 mg/dl (0.52-1.04) 04/19/21 06:10 Estimated Creat Clear 48 mL/min (50-200) 04/19/21 06:10 - Prophylaxis VTE Prophylaxis Ordered?: Yes Types of VTE Prophylaxis: TEDS Knee High Location of Applied Device: Bilateral Lower Extremeties
[2021-04-19 07:35] LABS: Anisocytosis 1+; Lymphocytes % 12 % (10-50); Monocytes % 2 % (2-9); Neutrophils % 86 % (42-76); Platelet Estimate Normal; Total Cells Counted 100
--- NOTE | 2021-04-19 08:00 | XR_ITS ---
FINAL REPORT CLINICAL HISTORY: sob FINDINGS: The heart size is normal. The mediastinum is normal. There is elevation of the right hemidiaphragm. There is patchy airspace opacity in the lung bases probably due to basilar pneumonia. There are no pleural effusions. There is no pneumothorax. There is no osseous abnormality. IMPRESSION: Bibasilar pneumonia. Recommend follow-up. Reviewed, Interpreted and Dictated by Samir Vance MD Transcribed by Elmer Jose Authenticated by Samir Vance MD on 04/19/2021 10:23:[address] [facility]
--- NOTE | 2021-04-19 08:57 | HMH.PULMPN ---
Internal Medicine - PN: Subj *Date: 04/19/21 *Time: 11:35 Interval history: Patient respiratory status significantly improved. Exam - Constitutional Constitutional:: Present: no acute distress, comfortable - HENMT Exam HENMT: Present: normocephalic, atraumatic - Eye Exam Eyes:: Present: normal appearance both eyes and related structures - Neck Exam Neck:: Present: normal visual inspection - Respiratory Exam Respiratory:: Present: able to speak in complete sentences, no respiratory distress, wheezing - Cardiovascular Exam Cardiac:: Present: S1, S2 - GI Exam GI:: Present: soft - Skin Exam Skin: Present: warm, no rash - Neurological Exam Neurological: Present: alert, awake, normal cognition - Extremities Exam Extremities: Present: no cyanosis, no clubbing, no edema Assessment and Plan (1) Elevated troponin Status: Acute Category: Medical Code(s): R77.8 - Other specified abnormalities of plasma proteins (2) COPD with acute exacerbation Status: Acute Category: Medical Code(s): J44.1 - Chronic obstructive pulmonary disease with (acute) exacerbation (3) Cough with hemoptysis Status: Acute Category: Medical Code(s): R04.2 - Hemoptysis (4) Dementia Status: Chronic Qualifiers: Dementia type: associated with other underlying disease Dementia behavioral disturbance: without behavioral disturbance Qualified Code(s): F02.80 - Dementia in other diseases classified elsewhere without behavioral disturbance Category: Medical Code(s): F03.90 - Unspecified dementia without behavioral disturbance (5) Gastroesophageal reflux disease Status: Chronic Qualifiers: Esophagitis presence: without esophagitis Qualified Code(s): K21.9 - Gastro-esophageal reflux disease without esophagitis Category: Medical Code(s): K21.9 - Gastro-esophageal reflux disease without esophagitis (6) CAD (coronary artery disease) Status: Chronic Qualifiers: Coronary Disease-Associated Artery/Lesion type: [place] artery [place] vs. transplanted heart: [place] heart Associated angina: without angina Qualified Code(s): I25.10 - Atherosclerotic heart disease of [place] coronary artery without angina pectoris Category: Medical Code(s): I25.10 - Atherosclerotic heart disease of [place] coronary artery without angina pectoris (7) IVCD (intraventricular conduction defect) Status: Acute Category: Medical Code(s): I45.4 - Nonspecific intraventricular block - Assessment and plan all Dx Assessment and Plan for all problems:: #Community-acquired pneumonia: #COPD exacerbation: #Acute hypoxic hypercarbic respiratory failure: 85-year-old with history of COPD presents with altered mentation. Blood gas on admission pH 6.99, PCO2 114 and PO2 of 72. COVID-[address] head no evidence of pulmonary embolism, showed dense consolidation/atelectasis in the right lower lobe along with bilateral pleural effusions moderate, right greater than left. No need for thoracentesis at this point of time. Hemodynamically stable. Significant leukocytosis of 26.5 on admission. Patient was initiated on vancomycin andLevoflaxacin Interval update: Patient admits significant smoking history, more than [id number], last smoked 2 years ago as per the patient. She is not using any inhalers at baseline she was prescribed inhalers previously but not using them for the last 2 years. Hypercarbic respiratory failure significantly improved, weaned to nasal cannula. Tolerating well. Continue to receive vancomycin and cefepime. Low-grade fevers. Leukocytosis improving. Renal function stable. Plan: -Continue nasal cannula oxygen supplementation to maintain O2 saturation goal of 92% and above. -Discontinue vancomycin. Continue cefepime, f/u Nasal MRSA PCR. Sputum grew intracellular gram-positive cocci in pairs. Blood cultures pending. -Duo nebs Q 6hrs and Budesonide q12 -Wean steroids to prednisone 40 mg daily for tota
--- NOTE | 2021-04-19 10:13 | HMH.OTEV ---
OT Inpatient Evaluation Rehab OT IP Evaluation Start: 04/19/21 09:03 Freq: ONCE Status: Complete Protocol: Document 04/19/21 10:03 [facility] (Rec: 04/19/21 10:12 [facility] [id number]) Rehab OT IP Assessment Subjective History Pt oriented to person on arrival. Pt demosntrates with confusion. Pt agreeable to engage in therapy session. Pt was admitted via ED on due to COPD exacerbation/ SOA. The following information was copied from history and physical report of PCP's: 85-year-old female has history of COPD presented to the ED. Patient presents from [facility] reported vomiting bright red blood, alf staff stated she started feeling bad around 3 pm yesterday but now is very sick with n\v with bright red blood. While in ed she had worsening respiratory distress and altered mentation and found to be having hypercarbic respiratory failure, Pt placed on bipap. Pt is a DNR. Pt admitted for pneumonia with resp failure and pulm consult placed. Pt has a past medical history of Anxiety, Congestive Heart Failure, Chronic Obstructive Pulmonary Disease (COPD), Gastroesophageal Reflux Disease(GERD), Hyperlipidemia, Hypertension, Myocardial Infarction Pt appears to be very confused about her prior living situation. She reports she lived alone prior to coming to the hosptial and was independent with all ADLs and IADLs. However, from chart review it appears she was living at [facility] and probably required assistance w
--- NOTE | 2021-04-19 12:09 | HMH.PTEV ---
Physical Therapy Evaluation Rehab PT IP Evaluation Start: 04/19/21 09:02 Freq: ONCE Status: Active Protocol: Document 04/19/21 12:07 PHOCRYSTAL (Rec: 04/19/21 12:09 PHORJENARO [id number]) Subjective/History History History 85 yowf adm to [facility] with COPD exac. She has dementia at baseline and is [facility] home resident. Pt unable to relate her prior method of mobility. Subjective Subjective Pt with no c/o this am. Rehab PT IP Eval Objective Appearance Patient Behavior Appropriate,Confused Patient Orientation Person Difficulty following instructions mild Speech Pattern Clear Ambulation Patient Able to Ambulate No Balance Ability to Arise Able, uses arms to help Sitting Balance Steady, safe Standing Balance Unsteady Dynamic Sitting Balance Ability Fair Dynamic Standing Balance Ability Poor Transfers Bed Transfer Ability Moderate x 1 (50% assist) Chair Transfer Ability Moderate x 1 (50% assist) Sit to Stand Bed Transfer Ability Moderate x 1 (50% assist) Sit to Stand Chair Transfer Ability Moderate x 1 (50% assist) Rehab PT IP prob,goals,plan Problems Date of Evaluation: 04/19/21 PT IP Problems Bed Mobility,Transfers Rehab Potential Rehab Potential Good Plan PT Intervention Plan Bed Mobility,Transfers,Self care,Therapeutic Exercise PT Plan Frequency BID Duration LOS Discharge Goals Bed Transfer Ability Minimal x 2 (25% assist) Sit to Stand Chair Transfer Ability Minimal x 2 (25% assist) Discharge Plan PT Discharge Plan Pt is most appropriate to return to [facility] home once medically stable. G -code Required No Eval Complexity Eval Charge Codes 30474 - Moderate Complexity PHYSICIAN CERTIFICATION: I certify the specified therapy services for Kathy Osullivan are required, authorized, and reviewed every 30 days.
--- NOTE | 2021-04-19 12:52 | DIET.NUTRFU ---
RD saw patient at lunch, she needs assistance with cutting meats, added on meal ticket. Also changed diet to cardiac, appropriate with PMH
--- NOTE | 2021-04-19 13:10 | HMH.ACPN2 ---
Internal Medicine - PN: Subj *Date: 04/20/21 *Time: 07:27 Interval history: doing better but with sx still -sob - chokes with food - no chest pain Exam Vital signs and Labs for Last 24 Hours: Temp Pulse Resp BP Pulse Ox 98.2 F 95 H 18 119/74 97 04/19/21 11:10 04/19/21 11:25 04/19/21 11:10 04/19/21 11:10 04/19/21 11:25 Laboratory Results - last 24 hr 04/18/21 16:56: Specimen Source rr, O2 % 100, ABG pH 7.36, ABG pCO2 44.0, ABG pO2 89.5, ABG HCO3 24.3, ABG Total CO2 25.6, ABG O2 Saturation 97, ABG Base Excess -1.1, Jesus Test acceptable 04/19/21 06:10: WBC 15.0 H D, RBC 3.21 L, Hgb 9.4 L, Hct 30.3 L, MCV 94.2, MCH 29.2, MCHC 31.0 L, RDW 14.6, Plt Count 176 D, MPV 9.9, Neut % (Auto) 89.1 H, Lymph % (Auto) 7.3 L, [place] % (Auto) 3.5, Eos % (Auto) 0.0 L, Baso % (Auto) 0.1, Neut # (Auto) 13.4 H, Lymph # (Auto) 1.1, [place] # (Auto) 0.5, Eos # (Auto) 0.0, Baso # (Auto) 0.0, Total Counted 100, Neutrophils % (Manual) 86 H, Lymphocytes % (Manual) 12, Monocytes % (Manual) 2, Platelet Estimate Normal, Anisocytosis 1+ 04/19/21 06:10: Sodium 140, Potassium 4.4, Chloride 109 H, Carbon Dioxide 26, Anion Gap 9.4, BUN 30 H, Creatinine 0.70, Estimated Creat Clear 48, Estimated GFR 80, Est GFR ( Amer) 96, Glucose 147 H, Calcium 8.7, Magnesium 1.7 I & O for Last 24 hours: Intake & Output 04/17/21 04/18/21 04/19/21 04/20/21 11:59 11:59 11:59 11:59 Intake Total 180 / 180 Output Total 950 / 950 Balance -770 / -770 Weight 156 lb 12.8 oz 162 lb 15.804 oz Microbiology Reports for the Last 24 Hours: Microbiology 04/18/21 05:34 Urine,Clean Catch Urine Culture - Preliminary NO GROWTH AFTER 24 HOURS 04/18/21 04:15 Sputum - Expectorated Sputum Gram Stain - Final - Constitutional no acute distress, obese - *Routine HEENT Exam Head: Present: normocephalic Eye: Present: EOMI, PERRL ENT: Present: mucous membranes dry - *Routine Neck Exam Absent: JVD - *Routine Respiratory Exam Present: decreased breath sounds, wheezes - *Routine Cardiovascular Exam Present: RRR, murmur, S4 - *Routine Abdominal Exam Present: soft - *Routine Extremities Exam Absent: calf tenderness - *Routine Skin Exam Present: intact - *Routine Neurological Exam Present: alert, CN II-XII intact. Absent: motor deficit - Routine Psychiatric Exam Present: normal affect Assessment and Plan (1) Elevated troponin Status: Acute Category: Medical Code(s): R77.8 - Other specified abnormalities of plasma proteins (2) COPD with acute exacerbation Status: Acute Category: Medical Code(s): J44.1 - Chronic obstructive pulmonary disease with (acute) exacerbation (3) Cough with hemoptysis Status: Acute Category: Medical Code(s): R04.2 - Hemoptysis (4) Dementia Status: Chronic Qualifiers: Dementia type: associated with other underlying disease Dementia behavioral disturbance: without behavioral disturbance Qualified Code(s): F02.80 - Dementia in other diseases classified elsewhere without behavioral disturbance Category: Medical Code(s): F03.90 - Unspecified dementia without behavioral disturbance (5) Gastroesophageal reflux disease Status: Chronic Qualifiers: Esophagitis presence: without esophagitis Qualified Code(s): K21.9 - Gastro-esophageal reflux disease without esophagitis Category: Medical Code(s): K21.9 - Gastro-esophageal reflux disease without esophagitis (6) CAD (coronary artery disease) Status: Chronic Qualifiers: Coronary Disease-Associated Artery/Lesion type: [place] artery [place] vs. transplanted heart: [place] heart Associated angina: without angina Qualified Code(s): I25.10 - Atherosclerotic heart disease of [place] coronary artery without angina pectoris Category: Medical Code(s): I25.10 - Atherosclerotic heart disease of [place] coronary artery without angina pectoris (7) IVCD (intraventricular conduction
--- NOTE | 2021-04-19 14:32 | HMH.SLDYSPHA ---
Speech & Language Evaluation Speech/Language Dysphagia Evaluation Start: 04/19/21 14:17 Freq: ONCE Status: Active Protocol: Document 04/19/21 14:17 SHILO (Rec: 04/19/21 14:32 SHILO [id number]) Dysphagia Assess/Goals/Plan Assessment Date of Evaluation: 04/19/21 Evaluation Type Initial Certification Assessment/Problems Dysphagia Does Patient Qualify for Service No Qualify/Failure Comment Patient displayed no signs of dysphagia at this time. Diet modifications were made to accommodate lack of dentition. Recommendations PHYSICIAN CERTIFICATION: The specified therapy services are required, authorized, and reviewed every 30 days. Diet Recommendations Mechanical Soft Liquid Type Recommendations Normal/Thin SL Swallow Guidelines Alt bite w/sip thru meal, Standard Aspiration Prec. Dysphagia Swallow Precautions/Strategies Sitting Upright (90 deg),Small Bites and Sips,Alternate Liquids/Solids Plan Pt/Guardian verbally ack understanding Yes: RN notified of dx/prognosis/goals G -code Required No General Information General Current Food Consistancy Regular,Thin Liquids Dentition Poor Dentition Oxygen Status Nasal Cannula Facial Symmetry Symmetrical Patient Orientation Person Ability to Follow Directions Good Communication Ability Mild Impairment Dysphagia:Food Presentation Evaluation Food Type Pureed,Mechanical Soft,Liquid, Pudding Dysphagia Evaluation Summary Patient was given thin liquids via open cup and straw, puree , pudding, and mech soft. Patient is not displaying any signs of dyphagia at this time . Diet of mech soft with gravy /sauce with thin liquids is recommended to accommodate lack of dentition. Stroke Dysphagia Assessment PHYSICIAN CERTIFICATION: I certify the specified therapy services for Kathy Osullivan are required, authorized, and reviewed every 30 days.
--- NOTE | 2021-04-19 17:52 | PC.NURSE ---
Pt is alert to self. Wheezes and rhonchi noted to lungs. She has been weaned from 4L NC to 2L NC with O2 sats still measuring in the upper 90's. Her campuzano is to bedside draining straw colored urine. She attempted to have a bm per bedpan with no luck. +1 edema to ble. Some scattered bruising to ble. Fluids kvo and 80mg lasix iv once per Dr Aguilar. Daughter has been to visit and is supportive.
[2021-04-20] VITALS (8 sets, daily range): BP systolic 106–125; BP diastolic 54–65; PULSE 60–114; RESP 16–22; TEMP 36.5–37.3; O2SAT 88–98; BMI 31.9
[2021-04-20 07:19] LABS: Basophils % 0.2 % (0.1-2.0); Hematocrit 29.2 % (37.0-47.0); Hemoglobin 9.2 g/dL (12.2-16.2); Lymphocytes # 2.1 K/mm3 (0.7-4.5); Lymphocytes % 14.7 % (10-50); Mean Corpuscular HGB Conc 31.4 g/dL (31.8-35.4); Mean Corpuscular Hemoglobin 28.7 pg (27.0-31.2); Mean Corpuscular Volume 91.4 fl (81-99); Monocytes # 0.9 K/mm3 (0.1-1.0); Monocytes % 6.3 % (1.7-9.3); Neutrophils # 11.2 K/mm3 (1.8-7.8); Neutrophils % 78.9 % (37.0-80.0); Platelet Count 195 K/mm3 (142-424); Red Cell Distribution Width 14.7 % (11.5-17.5); White Blood Count 14.2 K/mm3 (4.8-10.8)
[2021-04-20 07:54] LABS: Anion Gap 7.6 mEq/L (5-15); Blood Urea Nitrogen 33 mg/dl (7-17); Calcium 8.8 mg/dl (8.4-10.2); Carbon Dioxide 30 mmol/L (22.0-30.0); Chloride 105 mmol/L (98-107); Creatinine Clearance Estimated 48 mL/min (50-200); Estimated Glomerular Filt Rate 80 ml/min (>60); GFR (African American) 96 ML/MIN (>60); Glucose 114 mg/dl (74-100); Potassium 3.6 mmoL/L (3.5-5.1); Sodium 139 mmol/L (136-145)
--- NOTE | 2021-04-20 09:34 | HMH.ACPN2 ---
Internal Medicine - PN: Subj *Date: 04/21/21 *Time: 07:17 Interval history: doing better but still confused will have in chair - campuzano out Exam Vital signs and Labs for Last 24 Hours: Temp Pulse Resp BP Pulse Ox 98.2 F 60 18 110/64 95 04/20/21 07:52 04/20/21 07:52 04/20/21 07:52 04/20/21 07:52 04/20/21 07:52 Laboratory Results - last 24 hr 04/20/21 05:40: WBC 14.2 H, RBC 3.20 L, Hgb 9.2 L, Hct 29.2 L, MCV 91.4, MCH 28.7, MCHC 31.4 L, RDW 14.7, Plt Count 195, MPV 10.0, Neut % (Auto) 78.9, Lymph % (Auto) 14.7, [place] % (Auto) 6.3, Eos % (Auto) 0.0 L, Baso % (Auto) 0.2, Neut # (Auto) 11.2 H, Lymph # (Auto) 2.1, [place] # (Auto) 0.9, Eos # (Auto) 0.0, Baso # (Auto) 0.0 04/20/21 05:40: Sodium 139, Potassium 3.6, Chloride 105, Carbon Dioxide 30, Anion Gap 7.6, BUN 33 H, Creatinine 0.70, Estimated Creat Clear 48, Estimated GFR 80, Est GFR ( Amer) 96, Glucose 114 H D, Calcium 8.8 I & O for Last 24 hours: Intake & Output 04/17/21 04/18/21 04/19/21 04/20/21 11:59 11:59 11:59 11:59 Intake Total 180 / 180 2334 / 2334 Output Total 950 / 950 2850 / 2850 Balance -770 / -770 -516 / -516 Weight 156 lb 12.8 oz 162 lb 15.804 oz 162 lb 14.746 oz Microbiology Reports for the Last 24 Hours: Microbiology 04/18/21 04:15 Sputum - Expectorated Sputum Gram Stain - Final 04/18/21 04:15 Sputum - Expectorated Sputum Sputum Culture - Preliminary 04/18/21 05:34 Urine,Clean Catch Urine Culture - Final NO GROWTH AFTER 48 HOURS 04/18/21 04:25 Blood Blood Culture - Preliminary NO GROWTH AFTER 48 HOURS 04/18/21 04:25 Blood Blood Culture - Preliminary NO GROWTH AFTER 48 HOURS - Constitutional no acute distress, obese - *Routine HEENT Exam Head: Present: normocephalic Eye: Present: EOMI, PERRL ENT: Present: mucous membranes dry - *Routine Neck Exam Absent: JVD - *Routine Respiratory Exam Present: decreased breath sounds, prolonged expiratory phase - *Routine Cardiovascular Exam Present: RRR, murmur, S4 - *Routine Abdominal Exam Present: soft - *Routine Extremities Exam Present: edema - *Routine Skin Exam Present: intact - *Routine Neurological Exam Present: alert, CN II-XII intact - Routine Psychiatric Exam Present: cooperative. Absent: good insight Assessment and Plan (1) Elevated troponin Status: Acute Category: Medical Code(s): R77.8 - Other specified abnormalities of plasma proteins (2) COPD with acute exacerbation Status: Acute Category: Medical Code(s): J44.1 - Chronic obstructive pulmonary disease with (acute) exacerbation (3) Cough with hemoptysis Status: Acute Category: Medical Code(s): R04.2 - Hemoptysis (4) Dementia Status: Chronic Qualifiers: Dementia type: associated with other underlying disease Dementia behavioral disturbance: without behavioral disturbance Qualified Code(s): F02.80 - Dementia in other diseases classified elsewhere without behavioral disturbance Category: Medical Code(s): F03.90 - Unspecified dementia without behavioral disturbance (5) Gastroesophageal reflux disease Status: Chronic Qualifiers: Esophagitis presence: without esophagitis Qualified Code(s): K21.9 - Gastro-esophageal reflux disease without esophagitis Category: Medical Code(s): K21.9 - Gastro-esophageal reflux disease without esophagitis (6) CAD (coronary artery disease) Status: Chronic Qualifiers: Coronary Disease-Associated Artery/Lesion type: [place] artery [place] vs. transplanted heart: [place] heart Associated angina: without angina Qualified Code(s): I25.10 - Atherosclerotic heart disease of [place] coronary artery without angina pectoris Category: Medical Code(s): I25.10 - Atherosclerotic heart disease of [place] coronary artery without angina pectoris (7) IVCD (intraventricular conduction defect) Status: A
[2021-04-21] VITALS (9 sets, daily range): BP systolic 120–142; BP diastolic 66–74; PULSE 57–113; RESP 18–20; TEMP 36.8–37.3; O2SAT 92–96; BMI 31.9
[2021-04-21 06:56] LABS: Anion Gap 6.2 mEq/L (5-15); Blood Urea Nitrogen 26 mg/dl (7-17); Calcium 8.5 mg/dl (8.4-10.2); Carbon Dioxide 31 mmol/L (22.0-30.0); Chloride 107 mmol/L (98-107); Creatinine Clearance Estimated 48 mL/min (50-200); Estimated Glomerular Filt Rate 80 ml/min (>60); GFR (African American) 96 ML/MIN (>60); Glucose 101 mg/dl (74-100); Potassium 4.2 mmoL/L (3.5-5.1); Sodium 140 mmol/L (136-145)
--- NOTE | 2021-04-21 09:08 | XR_ITS ---
PROCEDURE INFORMATION: Exam: XR Chest Exam date and time: 04/21/2021 9:08 AM Age: 85 years old Clinical indication: Shortness of breath; Additional info: SOB TECHNIQUE: Imaging protocol: XR of the chest. Views: 1 view. COMPARISON: CR XR CHEST PORTABLE 04/19/2021 9:18 AM FINDINGS: Lungs: There is complete opacification of the right hemithorax. Pleural spaces: No definite pleural effusion. No pneumothorax. Heart/Mediastinum: There is mediastinal shift to the right. Bones/joints: There are degenerative changes of the spine and marked degenerative changes the shoulders. IMPRESSION: Interval development of complete opacification of the right hemithorax most consistent with bronchial obstruction and right lung atelectasis. Bronchoscopy should be considered.
--- NOTE | 2021-04-21 09:10 | HMH.ACPN2 ---
Internal Medicine - PN: Subj *Date: 04/22/21 *Time: 02:28 Interval history: cough today and some rales - will restart card meds and check bnp and cxr Exam Vital signs and Labs for Last 24 Hours: Temp Pulse Resp BP Pulse Ox 98.9 F 112 H 18 142/74 H 93 L 04/21/21 08:00 04/21/21 08:00 04/21/21 08:00 04/21/21 08:00 04/21/21 08:00 Laboratory Results - last 24 hr 04/21/21 06:23: Sodium 140, Potassium 4.2, Chloride 107, Carbon Dioxide 31 H, Anion Gap 6.2, BUN 26 H, Creatinine 0.70, Estimated Creat Clear 48, Estimated GFR 80, Est GFR ( Amer) 96, Glucose 101 H, Calcium 8.5 I & O for Last 24 hours: Intake & Output 04/18/21 04/19/21 04/20/21 04/21/21 11:59 11:59 11:59 11:59 Intake Total 180 / 180 2454 / 2454 360 / 360 Output Total 950 / 950 2850 / 2850 1350 / 1350 Balance -770 / -770 -396 / -396 -990 / -990 Weight 156 lb 12.8 oz 162 lb 15.804 oz 162 lb 14.746 oz 162 lb 14.746 oz Microbiology Reports for the Last 24 Hours: Microbiology 04/18/21 04:15 Sputum - Expectorated Sputum Gram Stain - Final 04/18/21 04:15 Sputum - Expectorated Sputum Sputum Culture - Final Normal Respiratory Odilia 04/19/21 09:50 Nose - Nasal MRSA Culture - Final Negative 04/18/21 05:34 Urine,Clean Catch Urine Culture - Final Proteus mirabilis 04/18/21 04:25 Blood Blood Culture - Preliminary NO GROWTH AFTER 48 HOURS 04/18/21 04:25 Blood Blood Culture - Preliminary NO GROWTH AFTER 48 HOURS - Constitutional no acute distress, obese - *Routine HEENT Exam Head: Present: normocephalic Eye: Present: EOMI, PERRL ENT: Present: mucous membranes dry - *Routine Neck Exam Absent: JVD - *Routine Respiratory Exam Present: decreased breath sounds - *Routine Cardiovascular Exam Present: RRR, murmur - *Routine Abdominal Exam Present: soft - *Routine Extremities Exam Absent: calf tenderness - *Routine Skin Exam Present: intact - *Routine Neurological Exam Present: alert, CN II-XII intact - Routine Psychiatric Exam Present: cooperative Assessment and Plan (1) Elevated troponin Status: Acute Category: Medical Code(s): R77.8 - Other specified abnormalities of plasma proteins (2) COPD with acute exacerbation Status: Acute Category: Medical Code(s): J44.1 - Chronic obstructive pulmonary disease with (acute) exacerbation (3) Cough with hemoptysis Status: Acute Category: Medical Code(s): R04.2 - Hemoptysis (4) Dementia Status: Chronic Qualifiers: Dementia type: associated with other underlying disease Dementia behavioral disturbance: without behavioral disturbance Qualified Code(s): F02.80 - Dementia in other diseases classified elsewhere without behavioral disturbance Category: Medical Code(s): F03.90 - Unspecified dementia without behavioral disturbance (5) Gastroesophageal reflux disease Status: Chronic Qualifiers: Esophagitis presence: without esophagitis Qualified Code(s): K21.9 - Gastro-esophageal reflux disease without esophagitis Category: Medical Code(s): K21.9 - Gastro-esophageal reflux disease without esophagitis (6) CAD (coronary artery disease) Status: Chronic Qualifiers: Coronary Disease-Associated Artery/Lesion type: [place] artery [place] vs. transplanted heart: [place] heart Associated angina: without angina Qualified Code(s): I25.10 - Atherosclerotic heart disease of [place] coronary artery without angina pectoris Category: Medical Code(s): I25.10 - Atherosclerotic heart disease of [place] coronary artery without angina pectoris (7) IVCD (intraventricular conduction defect) Status: Acute Category: Medical Code(s): I45.4 - Nonspecific intraventricular block (8) Obesity (BMI 30-39.9) Status: Acute Category: Medical Code(s): E66.9 - Obesity, unspecif
[2021-04-21 09:18] LABS: Basophils # 2.4 K/mm3 (0-0.2); Eosinophils # 0.2 K/mm3 (0.0-0.4); Hematocrit 37.4 % (37.0-47.0); Hemoglobin 9.8 g/dL (12.2-16.2); Lymphocytes # 2.4 K/mm3 (0.7-4.5); Lymphocytes % 22.1 % (10-50); Mean Corpuscular HGB Conc 26.1 g/dL (31.8-35.4); Mean Corpuscular Hemoglobin 28.5 pg (27.0-31.2); Mean Corpuscular Volume 109.4 fl (81-99); Mean Platelet Volume 26.5 fl (7.4-10.4); Monocytes # 0.5 K/mm3 (0.1-1.0); Monocytes % 4.8 % (1.7-9.3); Neutrophils # 7.8 K/mm3 (1.8-7.8); Neutrophils % 71.1 % (37.0-80.0); Platelet Count 167 K/mm3 (142-424); Red Blood Count 3.42 M/mm3 (4.20-5.40); Red Cell Distribution Width 20.1 % (11.5-17.5)
[2021-04-21 09:32] LABS: NT Pro Brain Natriuretic Pep. 7630 pg/mL (0-450)
[2021-04-21 11:06] LABS: Coronavirus 19, PCR Not Detected (NotDetected); Influenza A, PCR Not Detected (NotDetected); Influenza B, PCR Not Detected (NotDetected)
[2021-04-22] VITALS (28 sets, daily range): BP systolic 113–186; BP diastolic 53–98; PULSE 79–112; RESP 16–20; TEMP 36.2–36.9; O2SAT 90–100
--- NOTE | 2021-04-22 07:38 | PC.NURSE ---
LATE ENTRY - Pt has had an uneventful night, no acute episodes or changes. Pt is on 3 L NC, O2 sat greater than 90%. Pt is pleasantly confused. Voiding per campuzano cath, draining yellow urine, great UOP. IV patent, ATBX infusing per order. Pt has been NPO since midnight for procedure. Surgery consent and checklist on pt chart. No needs at this time. Call light in reach.
[2021-04-22 07:58] LABS: Anion Gap 8.9 mEq/L (5-15); Blood Urea Nitrogen 28 mg/dl (7-17); Calcium 8.7 mg/dl (8.4-10.2); Carbon Dioxide 30 mmol/L (22.0-30.0); Chloride 104 mmol/L (98-107); Creatinine Clearance Estimated 48 mL/min (50-200); Estimated Glomerular Filt Rate 80 ml/min (>60); GFR (African American) 96 ML/MIN (>60); Glucose 103 mg/dl (74-100); Potassium 3.9 mmoL/L (3.5-5.1); Sodium 139 mmol/L (136-145)
--- NOTE | 2021-04-22 08:20 | CT_ITS ---
FINAL REPORT CLINICAL HISTORY: abnormal cxr FINDINGS: CT CHEST W & W/O CONTRAST Axial CT images were performed through the chest without and with contrast. Coronal and sagittal reformatted images were submitted. This study was performed with techniques to keep radiation doses as low as reasonably achievable (ALARA). Individualized dose reduction techniques using automated exposure control or adjustment of mA and/or kV according to the patient's size were employed. The thyroid is enlarged and lobular favoring a goiter. There are several enlarged mediastinal lymph nodes. A lower right paratracheal lymph node measures 1.5 cm. There is probable mucous obstructing the bronchus intermedius. There is near complete collapse of the right lung. There is mild left lung base atelectasis. There are small nodules in the left lung base measuring up to 6 mm. There is a small to moderate anterior right pneumothorax measuring up to 2.5 cm. There is a moderate right pleural effusion. There is a small left pleural effusion. There are multiple borderline sized bilateral axillary lymph nodes. Images through the upper abdomen demonstrate changes of prior cholecystectomy. There is severe degenerative change of the shoulders. IMPRESSION: Near complete collapse of the right lung with probable mucous in the bronchus intermedius. An endobronchial lesion cannot be excluded. This could be further evaluated with bronchoscopy. Right pneumothorax. BERTHA Vitale on the 2nd floor was notified of these findings at the time of dictation. Reviewed, Interpreted and Dictated by Kirill Yeh III, MD Transcribed by Elmer Jose Authenticated by Kirill Yeh III, MD on 04/22/2021 11:45:26 AM [facility]
--- NOTE | 2021-04-22 08:22 | XR_ITS ---
FINAL REPORT CLINICAL HISTORY: respiratory failure FINDINGS: The heart size is normal. The mediastinum is normal. There is near total opacification of the right thorax. There is a probable right apical pneumothorax. There is a right pleural effusion. There is no pneumothorax. There is severe degenerative change of the shoulders. IMPRESSION: Near total opacification of the right thorax with a probable right apical pneumothorax. BERTHA Vitale on the 2nd floor was notified of these findings at the time of dictation. Reviewed, Interpreted and Dictated by Kirill Yeh III, MD Transcribed by Elmer Jose Authenticated by Kirill Yeh III, MD on 04/22/2021 11:45:[address] [facility]
--- NOTE | 2021-04-22 08:59 | HMH.ACPN2 ---
Internal Medicine - PN: Subj *Date: 04/22/21 *Time: 08:00 Interval history: pt laying in bed, states doing ok. Exam Vital signs and Labs for Last 24 Hours: Temp Pulse Resp BP Pulse Ox 98.3 F 79 16 113/61 90 L 04/22/21 07:58 04/22/21 07:58 04/22/21 07:58 04/22/21 07:58 04/22/21 07:58 Laboratory Results - last 24 hr 04/21/21 06:23: WBC 11.0 H, RBC 3.42 L, Hgb 9.8 L, Hct 37.4, MCV 109.4 H, MCH 28.5, MCHC 26.1 L, RDW 20.1 H D, Plt Count 167, MPV 26.5 H, Neut % (Auto) 71.1, Lymph % (Auto) 22.1, [place] % (Auto) 4.8, Eos % (Auto) 2.0, Baso % (Auto) 22.0 H, Neut # (Auto) 7.8, Lymph # (Auto) 2.4, [place] # (Auto) 0.5, Eos # (Auto) 0.2, Baso # (Auto) 2.4 H 04/21/21 06:23: NT-Pro-B Natriuret Pep 7630 H 04/21/21 11:00: SARS-CoV-2 (PCR) Not detected, Influenza A Untype (PCR) Not detected, Influenza Type B (PCR) Not detected 04/22/21 07:15: Sodium 139, Potassium 3.9, Chloride 104, Carbon Dioxide 30, Anion Gap 8.9, BUN 28 H, Creatinine 0.70, Estimated Creat Clear 48, Estimated GFR 80, Est GFR ( Amer) 96, Glucose 103 H, Calcium 8.7 I & O for Last 24 hours: Intake & Output 04/19/21 04/20/21 04/21/21 04/22/21 11:59 11:59 11:59 11:59 Intake Total 180 / 180 2454 / 2454 480 / 480 760 / 760 Output Total 950 / 950 2850 / 2850 1350 / 1350 2900 / 2900 Balance -770 / -770 -396 / -396 -870 / -870 -2140 / -2140 Weight 162 lb 15.804 oz 162 lb 14.746 oz 162 lb 14.746 oz Microbiology Reports for the Last 24 Hours: Microbiology 04/18/21 04:15 Sputum - Expectorated Sputum Gram Stain - Final 04/18/21 04:15 Sputum - Expectorated Sputum Sputum Culture - Final Normal Respiratory Odilia 04/19/21 09:50 Nose - Nasal MRSA Culture - Final Negative - Constitutional chronically ill appearing - *Routine HEENT Exam Head: Present: normocephalic Eye: Present: PERRL ENT: Present: mucous membranes moist - *Routine Neck Exam Present: supple. Absent: lymphadenopathy - *Routine Respiratory Exam Present: decreased breath sounds Comments: rt lung sounds diminished - *Routine Cardiovascular Exam Present: RRR - *Routine Abdominal Exam Present: soft, normoactive bowel sounds. Absent: tenderness - *Routine Exam Comments: campuzano in place - *Routine Extremities Exam Absent: cyanosis, clubbing, edema - *Routine Skin Exam Present: warm. Absent: rash - *Routine Neurological Exam Present: alert, oriented X3 Assessment and Plan (1) Elevated troponin Status: Acute Category: Medical Code(s): R77.8 - Other specified abnormalities of plasma proteins (2) COPD with acute exacerbation Status: Acute Category: Medical Code(s): J44.1 - Chronic obstructive pulmonary disease with (acute) exacerbation (3) Cough with hemoptysis Status: Acute Category: Medical Code(s): R04.2 - Hemoptysis (4) Dementia Status: Chronic Qualifiers: Dementia type: associated with other underlying disease Dementia behavioral disturbance: without behavioral disturbance Qualified Code(s): F02.80 - Dementia in other diseases classified elsewhere without behavioral disturbance Category: Medical Code(s): F03.90 - Unspecified dementia without behavioral disturbance (5) Gastroesophageal reflux disease Status: Chronic Qualifiers: Esophagitis presence: without esophagitis Qualified Code(s): K21.9 - Gastro-esophageal reflux disease without esophagitis Category: Medical Code(s): K21.9 - Gastro-esophageal reflux disease without esophagitis (6) CAD (coronary artery disease) Status: Chronic Qualifiers: Coronary Disease-Associated Artery/Lesion type: [place] artery [place] vs. transplanted heart: [place] heart Associated angina: without angina Qualified Code(s): I25.10 - Atherosclerotic heart disease of [place] coronary artery without angina pectoris Category: Medical Code(s): I25.10 - Atherosclerotic heart disease of [place] c
--- NOTE | 2021-04-22 09:06 | HMH.ACPN2 ---
Internal Medicine - PN: Subj *Date: 04/22/21 *Time: 09:06 Exam Vital signs and Labs for Last 24 Hours: Temp Pulse Resp BP Pulse Ox 98.3 F 79 16 113/61 90 L 04/22/21 07:58 04/22/21 07:58 04/22/21 07:58 04/22/21 07:58 04/22/21 07:58 Laboratory Results - last 24 hr 04/21/21 06:23: WBC 11.0 H, RBC 3.42 L, Hgb 9.8 L, Hct 37.4, MCV 109.4 H, MCH 28.5, MCHC 26.1 L, RDW 20.1 H D, Plt Count 167, MPV 26.5 H, Neut % (Auto) 71.1, Lymph % (Auto) 22.1, [place] % (Auto) 4.8, Eos % (Auto) 2.0, Baso % (Auto) 22.0 H, Neut # (Auto) 7.8, Lymph # (Auto) 2.4, [place] # (Auto) 0.5, Eos # (Auto) 0.2, Baso # (Auto) 2.4 H 04/21/21 06:23: NT-Pro-B Natriuret Pep 7630 H 04/21/21 11:00: SARS-CoV-2 (PCR) Not detected, Influenza A Untype (PCR) Not detected, Influenza Type B (PCR) Not detected 04/22/21 07:15: Sodium 139, Potassium 3.9, Chloride 104, Carbon Dioxide 30, Anion Gap 8.9, BUN 28 H, Creatinine 0.70, Estimated Creat Clear 48, Estimated GFR 80, Est GFR ( Amer) 96, Glucose 103 H, Calcium 8.7 I & O for Last 24 hours: Intake & Output 04/19/21 04/20/21 04/21/21 04/22/21 23:59 23:59 23:59 23:59 Intake Total 2489 / 2489 505 / 505 480 / 480 400 / 400 Output Total 700 / 3200 3850 / 3850 900 / 1900 1999 / 1999 Balance 1789 / -711 -3345 / -3345 -420 / -1420 -1600 / -1600 Weight 73.93 kg 73.9 kg 73.9 kg Microbiology Reports for the Last 24 Hours: Microbiology 04/18/21 04:15 Sputum - Expectorated Sputum Gram Stain - Final 04/18/21 04:15 Sputum - Expectorated Sputum Sputum Culture - Final Normal Respiratory [place] 04/19/21 09:50 Nose - Nasal MRSA Culture - Final Negative Assessment and Plan (1) Elevated troponin Status: Acute Category: Medical Code(s): R77.8 - Other specified abnormalities of plasma proteins (2) COPD with acute exacerbation Status: Acute Category: Medical Code(s): J44.1 - Chronic obstructive pulmonary disease with (acute) exacerbation (3) Cough with hemoptysis Status: Acute Category: Medical Code(s): R04.2 - Hemoptysis (4) Dementia Status: Chronic Qualifiers: Qualified Code(s): F02.80 - Dementia in other diseases classified elsewhere without behavioral disturbance Category: Medical Code(s): F03.90 - Unspecified dementia without behavioral disturbance (5) Gastroesophageal reflux disease Status: Chronic Qualifiers: Qualified Code(s): K21.9 - Gastro-esophageal reflux disease without esophagitis Category: Medical Code(s): K21.9 - Gastro-esophageal reflux disease without esophagitis (6) CAD (coronary artery disease) Status: Chronic Qualifiers: Qualified Code(s): I25.10 - Atherosclerotic heart disease of [place] coronary artery without angina pectoris Category: Medical Code(s): I25.10 - Atherosclerotic heart disease of [place] coronary artery without angina pectoris (7) IVCD (intraventricular conduction defect) Status: Acute Category: Medical Code(s): I45.4 - Nonspecific intraventricular block (8) Obesity (BMI 30-39.9) Status: Acute Category: Medical Code(s): E66.9 - Obesity, unspecified (9) Respiratory failure with hypercapnia Status: Acute Qualifiers: Qualified Code(s): J96.22 - Acute and chronic respiratory failure with hypercapnia Category: Medical Code(s): J96.92 - Respiratory failure, unspecified with hypercapnia (10) Elevated troponin Status: Acute Category: Medical Code(s): R77.8 - Other specified abnormalities of plasma proteins (11) Bacterial infection due to Proteus mirabilis Status: Acute Category: Medical Code(s): A49.8 - Other bacterial infections of unspecified site The patient's infection will respond to the chosen ABx?: Yes Is the patient receiving the right drug, dose, and route?: Yes Could a more targeted ABx be ordered?: No 5 (MINIMUM OF 5, UP TO 14 DAYS)
--- NOTE | 2021-04-22 09:27 | HMH.PULMPN ---
Internal Medicine - PN: Subj *Date: 04/22/21 *Time: 11:17 Interval history: No acute respiratory events overnight Exam - Constitutional Constitutional:: Present: no acute distress, comfortable - HENMT Exam HENMT: Present: normocephalic, atraumatic - Eye Exam Eyes:: Present: normal appearance both eyes and related structures - Neck Exam Neck:: Present: normal visual inspection - Respiratory Exam Respiratory:: Present: no respiratory distress, decreased breath sounds, wheezing - Cardiovascular Exam Cardiac:: Present: S1, S2 - GI Exam GI:: Present: soft - Skin Exam Skin: Present: warm, no rash - Neurological Exam Neurological: Present: awake. Absent: alert, normal cognition - Extremities Exam Extremities: Present: no cyanosis, no clubbing Assessment and Plan (1) Elevated troponin Status: Acute Category: Medical Code(s): R77.8 - Other specified abnormalities of plasma proteins (2) COPD with acute exacerbation Status: Acute Category: Medical Code(s): J44.1 - Chronic obstructive pulmonary disease with (acute) exacerbation (3) Cough with hemoptysis Status: Acute Category: Medical Code(s): R04.2 - Hemoptysis (4) Dementia Status: Chronic Qualifiers: Dementia type: associated with other underlying disease Dementia behavioral disturbance: without behavioral disturbance Qualified Code(s): F02.80 - Dementia in other diseases classified elsewhere without behavioral disturbance Category: Medical Code(s): F03.90 - Unspecified dementia without behavioral disturbance (5) Gastroesophageal reflux disease Status: Chronic Qualifiers: Esophagitis presence: without esophagitis Qualified Code(s): K21.9 - Gastro-esophageal reflux disease without esophagitis Category: Medical Code(s): K21.9 - Gastro-esophageal reflux disease without esophagitis (6) CAD (coronary artery disease) Status: Chronic Qualifiers: Coronary Disease-Associated Artery/Lesion type: [place] artery [place] vs. transplanted heart: [place] heart Associated angina: without angina Qualified Code(s): I25.10 - Atherosclerotic heart disease of [place] coronary artery without angina pectoris Category: Medical Code(s): I25.10 - Atherosclerotic heart disease of [place] coronary artery without angina pectoris (7) IVCD (intraventricular conduction defect) Status: Acute Category: Medical Code(s): I45.4 - Nonspecific intraventricular block (8) Obesity (BMI 30-39.9) Status: Acute Category: Medical Code(s): E66.9 - Obesity, unspecified (9) Respiratory failure with hypercapnia Status: Acute Qualifiers: Chronicity: acute on chronic Qualified Code(s): J96.22 - Acute and chronic respiratory failure with hypercapnia Category: Medical Code(s): J96.92 - Respiratory failure, unspecified with hypercapnia (10) Elevated troponin Status: Acute Category: Medical Code(s): R77.8 - Other specified abnormalities of plasma proteins (11) Bacterial infection due to Proteus mirabilis Status: Acute Category: Medical Code(s): A49.8 - Other bacterial infections of unspecified site - Assessment and plan all Dx Assessment and Plan for all problems:: #Community-acquired pneumonia: #COPD exacerbation: #Acute hypoxic hypercarbic respiratory failure: 85-year-old with history of COPD,>30 PPD last smoked 2 years ago, not using any inhalers for the last 2 years presents with altered mentation. Blood gas on admission pH 6.99, PCO2 114 and PO2 of 72. COVID-[address] head no evidence of pulmonary embolism, showed dense consolidation/atelectasis in the right lower lobe along with bilateral pleural effusions moderate, right greater than left. No need for thoracentesis at this point of time. Hemodynamically stable. Significant leukocytosis of 26.5 on admission. Patient was initiated on vancomycin andLevoflaxacin Interval update: Patient continued to tolerate nasal cannula we
--- NOTE | 2021-04-22 12:10 | XR_ITS ---
FINAL REPORT CLINICAL HISTORY: Pneumothorax COMPARISON: 2 hours prior FINDINGS: The heart size is normal. The mediastinum is normal. There is marked improved aeration of the right lung with persistent atelectasis or pneumonia. There is marked improvement in the right pleural effusion. There is improvement in the right pneumothorax with a probable persistent small right apical pneumothorax. There is mild left lung base atelectasis or pneumonia. There is severe degenerative change with several loose bodies involving the left shoulder. IMPRESSION: Marked improved aeration of the right lung with persistent atelectasis or pneumonia. Improved right pneumothorax with probable persistent small right apical pneumothorax. Marked improvement in the right pleural effusion. Reviewed, Interpreted and Dictated by Kirill Yeh III, MD Transcribed by Elmer Jose Authenticated by Kirill Yeh III, MD on 04/22/2021 01:09:00 PM [facility]
--- NOTE | 2021-04-22 12:12 | HMH.ANESCL ---
[facility] Anesthesia Checklist - Patient Identification Patient Identification: Arm Band - Structural Data Admitted From: Inpatient Planned Operative Procedure/s: Bronchoscopy with Biopsy Consent for Planned Operative Procedure(s) Verified: Yes Verified Documents: Surgical Consent, History and Physical - NPO Status Verified Time NPO: 00:00 - Additional verifications Anesthesia Reactions: No - Airway Assessment C-Spine Mobility Assessed: Yes (mp2) TMJ Mobility Assessed: Yes Dentition: Good Dentition - Neurological Assessment Level of Consciousness: Awake, Alert - Anesthesia Plan Anesthesia Risk discussed: Yes Anesthesia Plan: Verified ASA Class: III Anesthesia Type: General [facility] History I have reviewed the patient's past medical history: Yes Medical History: Reports:: Anxiety, Atherosclerotic Heart Disease, Congestive Heart Failure, Chronic Obstructive Pulmonary Disease (COPD), Coronary Artery Disease, Gastroesophageal Reflux Disease(GERD), Hyperlipidemia, Hypertension, Myocardial Infarction Denies:: Diabetes Mellitus Type 1 *Have you ever received a pneumonia vaccine?: (unknown) *Have you received a flu vaccine this season?: (unknown) Other Medical History: Reports: Arthritis Anesthesia experience/problems:: nac Other Surgeries: Yes: Other - *Social History Last grade of school completed: Some college Smoking Status: Never smoker Alcohol Intake: never Alcohol Intake Frequency:: other Substance Use Type: denies use, other Last Used Substance: unknown *Occupational Status:: other Housing: custodial *Travel in the last 8 weeks: None - Psychiatric History Expresses thoughts of harming self/others: Vague Suicide Plan Description: No Plan Pschychiatric History:: Reports:: Anxiety Family Hx:: Heart Attack
--- NOTE | 2021-04-22 12:13 | HMH.ANESI ---
[facility] Anesthesia Record Part I Intake, IV Amount: 500 Estimated blood loss (mL): 0 Urine output (mL): 0 Blood Pressure: 142/81 SaO2: 94 Pulse Rate: 105 Respiratory Rate: 16 Temperature: 97.2 F Patient is:: Drowsy, Stable Stable to PACU at:: 12:05
--- NOTE | 2021-04-22 12:21 | PC.NURSE ---
1145 received call from radiology that pt has near complete collapse of right lung and has a right sided pneumothorax. [address] Lopez of results. nno
--- NOTE | 2021-04-22 12:36 | SUR.PHASEI ---
1215- radiology in this time for ordered CXR. 1238- respiratory in at this time to give duoneb breathing treatment ordered per md Jessica.
--- NOTE | 2021-04-22 13:57 | SUR.PHASEI ---
1339- detailed report called to etta childs on med surg floor. 1341- pt left in stable condition under etta childs care on medsur floor.
--- NOTE | 2021-04-22 18:40 | PC.NURSE ---
1700-detailed report recieved from Danyell,RN at this time, pt sitting up to chair and corie well, ls clear-diminished to right base, pt denies soa on 3l/nc, iv patent, vss, bs+x4, pt doing well since having bronchoscopy procedure today, family at the bedside, denies pain, pt corie supper, pt stable-will continue to monitor
[2021-04-23] VITALS: BP 123/57; PULSE 101; RESP 16; TEMP 36.5; O2SAT 99
[2021-04-23 04:00] VITALS: BP 131/62; PULSE 94; RESP 16; TEMP 37; O2SAT 98
[2021-04-23 05:00] VITALS: BMI 30.7
[2021-04-23 05:42] VITALS: PULSE 88; PULSE 92; O2SAT 93
[2021-04-23 07:50] VITALS: BP 121/64; PULSE 59; RESP 19; TEMP 36.5; O2SAT 93
[2021-04-23 07:50] LABS: Basophils % 0.1 % (0.1-2.0); Eosinophils % 0.1 % (0.1-12.0); Hematocrit 30.6 % (37.0-47.0); Hemoglobin 9.8 g/dL (12.2-16.2); Lymphocytes # 1.1 K/mm3 (0.7-4.5); Mean Corpuscular Hemoglobin 29.2 pg (27.0-31.2); Mean Corpuscular Volume 91.2 fl (81-99); Mean Platelet Volume 9.1 fl (7.4-10.4); Monocytes # 0.7 K/mm3 (0.1-1.0); Monocytes % 4.4 % (1.7-9.3); Neutrophils # 14.1 K/mm3 (1.8-7.8); Neutrophils % 88.5 % (37.0-80.0); Platelet Count 236 K/mm3 (142-424); Red Blood Count 3.35 M/mm3 (4.20-5.40); Red Cell Distribution Width 14.4 % (11.5-17.5); White Blood Count 15.9 K/mm3 (4.8-10.8)
[2021-04-23 07:52] LABS: MANUAL DIFFERENTIAL MANUAL DIFFERENTIAL (MANUAL DIFF)
[2021-04-23 08:00] VITALS: RESP 19; O2SAT 93
[2021-04-23 08:09] LABS: Chloride 102 mmol/L (98-107); Potassium 4.1 mmoL/L (3.5-5.1); Sodium 138 mmol/L (136-145)
[2021-04-23 08:12] LABS: Anion Gap 9.1 mEq/L (5-15); Blood Urea Nitrogen 27 mg/dl (7-17); Calcium 8.5 mg/dl (8.4-10.2); Carbon Dioxide 31 mmol/L (22.0-30.0); Creatinine Clearance Estimated 46 mL/min (50-200); Estimated Glomerular Filt Rate 68 ml/min (>60); GFR (African American) 82 ML/MIN (>60); Glucose 128 mg/dl (74-100)
--- NOTE | 2021-04-23 08:20 | XR_ITS ---
FINAL REPORT CLINICAL HISTORY: follow-up COMPARISON: 04/22/2021 FINDINGS: SINGLE VIEW CHEST The heart is normal in size. There is stable upper right mediastinal widening. There has been further improvement in the right lung aeration. There is persistent mild bibasilar atelectasis. There is no pneumothorax. There are degenerative changes in both shoulders. IMPRESSION: Stable upper right mediastinal widening with further improvement in the right lung aeration. Reviewed, Interpreted and Dictated by Kirill Yeh III, MD Transcribed by Bhavna Hope Authenticated by Kirill Yeh III, MD on 04/23/2021 10:18:40 AM [facility]
--- NOTE | 2021-04-23 08:57 | HMH.PULMPN ---
Internal Medicine - PN: Subj *Date: 04/23/21 *Time: 10:47 Interval history: No acute respiratory events overnight. Exam - Constitutional Constitutional:: Present: no acute distress, comfortable - HENMT Exam HENMT: Present: normocephalic, atraumatic - Eye Exam Eyes:: Present: normal appearance both eyes and related structures - Neck Exam Neck:: Present: normal visual inspection - Respiratory Exam Respiratory:: Present: able to speak in complete sentences, decreased breath sounds. Absent: crackles, wheezing - Cardiovascular Exam Cardiac:: Present: S1, S2 - GI Exam GI:: Present: soft - Skin Exam Skin: Present: warm, no rash - Neurological Exam Neurological: Present: awake. Absent: alert, normal cognition - Extremities Exam Extremities: Present: no cyanosis, no clubbing Assessment and Plan (1) Elevated troponin Status: Acute Category: Medical Code(s): R77.8 - Other specified abnormalities of plasma proteins (2) COPD with acute exacerbation Status: Acute Category: Medical Code(s): J44.1 - Chronic obstructive pulmonary disease with (acute) exacerbation (3) Cough with hemoptysis Status: Acute Category: Medical Code(s): R04.2 - Hemoptysis (4) Dementia Status: Chronic Qualifiers: Dementia type: associated with other underlying disease Dementia behavioral disturbance: without behavioral disturbance Qualified Code(s): F02.80 - Dementia in other diseases classified elsewhere without behavioral disturbance Category: Medical Code(s): F03.90 - Unspecified dementia without behavioral disturbance (5) Gastroesophageal reflux disease Status: Chronic Qualifiers: Esophagitis presence: without esophagitis Qualified Code(s): K21.9 - Gastro-esophageal reflux disease without esophagitis Category: Medical Code(s): K21.9 - Gastro-esophageal reflux disease without esophagitis (6) CAD (coronary artery disease) Status: Chronic Qualifiers: Coronary Disease-Associated Artery/Lesion type: [place] artery [place] vs. transplanted heart: [place] heart Associated angina: without angina Qualified Code(s): I25.10 - Atherosclerotic heart disease of [place] coronary artery without angina pectoris Category: Medical Code(s): I25.10 - Atherosclerotic heart disease of [place] coronary artery without angina pectoris (7) IVCD (intraventricular conduction defect) Status: Acute Category: Medical Code(s): I45.4 - Nonspecific intraventricular block (8) Obesity (BMI 30-39.9) Status: Acute Category: Medical Code(s): E66.9 - Obesity, unspecified (9) Respiratory failure with hypercapnia Status: Acute Qualifiers: Chronicity: acute on chronic Qualified Code(s): J96.22 - Acute and chronic respiratory failure with hypercapnia Category: Medical Code(s): J96.92 - Respiratory failure, unspecified with hypercapnia (10) Elevated troponin Status: Acute Category: Medical Code(s): R77.8 - Other specified abnormalities of plasma proteins (11) Bacterial infection due to Proteus mirabilis Status: Acute Category: Medical Code(s): A49.8 - Other bacterial infections of unspecified site - Assessment and plan all Dx Assessment and Plan for all problems:: #Community-acquired pneumonia: #COPD exacerbation: #Acute hypoxic hypercarbic respiratory failure: # Right Lung collapse s/p Bronchoscopy # Right Apical Pneumothorax s/p resolution 85-year-old with history of COPD,>30 PPD last smoked 2 years ago, not using any inhalers for the last 2 years presents with altered mentation. Blood gas on admission pH 6.99, PCO2 114 and PO2 of 72. COVID-19 and flu PCR negativeCT chest no evidence of pulmonary embolism, showed dense consolidation/atelectasis in the right lower lobe along with bilateral pleural effusions moderate, right greater than left. No need for thoracentesis at this point of time. Hemodynamically stable. Significant leukocytosis of 26.5 on admission.
--- NOTE | 2021-04-23 10:44 | HMH.BRONCH ---
- Procedure: Date: 04/22/21 Patient Date of :: 1935 Procedure Performed:: Bronchoscopy with airway examination alveolar lavage and endobronchial biopsy Indications:: Right lung collapse Performing Provider:: Shaina Lopez MD Referring Provider:: Dr. Marion Sedation:: General anesthesia Procedure:: Bronchoscopy with airway examination alveolar lavage and endobronchial biopsy A clean therapeutic bronchoscopy was advanced the ET tube and airways were examined up to subsegmental bronchi. A large blood clot was noted in the right mainstem bronchus. The blood clots were suctioned. Blood clots also noted in the right upper lobe bronchus concerning for the possible source of bleeding as right upper lobe. Bronchoalveolar lavage was performed in the right upper lobe with a total of 60 cc inspiration with return of 45 bloody fluid with blood clots. BAL fluid was sent for bacterial fungal AFB stain culture, cell count differential and cytopathological examination. Endobronchial lesion was also noted in the right lower lobe bronchi for which endobronchial biopsies was performed and were sent for cytopathological examination. Patient tolerated the procedure well. Follow the final results Findings:: Please see the procedure note Recommendations:: Follow with the results. Plan to hold aspirin and Plavix for 5 days after consulting cardiology to Kimi risk-benefit analysis Complications:: none Estimated blood obtained (mL): 10
[2021-04-23 11:10] VITALS: PULSE 90; PULSE 93; O2SAT 96
[2021-04-23 12:07] LABS: Lymphocytes % 9 % (10-50); Monocytes % 6 % (2-9); Neutrophils % 85 % (42-76); Platelet Estimate Normal; RBC Morphology Normal; Total Cells Counted 100
--- NOTE | 2021-04-23 12:25 | HMH.DCSUM ---
General - General Admission date:: 04/18/21 Discharge date: 04/23/21 HPI HPI: 85-year-old female has history of COPD presented to the ED. Patient presents from [facility] reported vomiting bright red blood, [facility] staff stated she started feeling bad around 3 pm yesterday but now is very sick with n\v with bright red blood. While in ed she had worsening respiratory distress and altered mentation and found to be having hypercarbic respiratory failure, Pt placed on bipap. Pt is a DNR. Pt admitted for pneumonia with resp failure and pulm consult placed. Hospital Course Hospital Course: Abnormal Lab Results 04/23/21 06:27: WBC 15.9 H D, RBC 3.35 L, Hgb 9.8 L, Hct 30.6 L, Neut % (Auto) 88.5 H, Lymph % (Auto) 7.0 L, Neut # (Auto) 14.1 H, Neutrophils % (Manual) 85 H, Lymphocytes % (Manual) 9 L 04/23/21 06:27: Carbon Dioxide 31 H, BUN 27 H, Glucose 128 H D Microbiology 04/18/21 04:25 Blood Blood Culture - Final NO GROWTH AFTER 5 DAYS 04/18/21 04:25 Blood Blood Culture - Final NO GROWTH AFTER 5 DAYS 04/22/21 11:51 Bronchial Washings - Right Upper Lobe Gram Stain - Final 04/18/21 04:15 Sputum - Expectorated Sputum Gram Stain - Final 04/18/21 04:15 Sputum - Expectorated Sputum Sputum Culture - Final Normal Respiratory Odilia 04/19/21 09:50 Nose - Nasal MRSA Culture - Final Negative 04/18/21 05:34 Urine,Clean Catch Urine Culture - Final Proteus mirabilis Ordering Physician: Johnny Marion MD Date of Service: 04/18/21 Procedure(s): XR chest portable Accession Number(s): [id number] cc: Keo Hooper MD; Johnny Marion MD~ PROCEDURE INFORMATION: Exam: XR Chest Exam date and time: 04/18/2021 4:54 AM Age: 85 years old Clinical indication: Cough; Additional info: Coughing TECHNIQUE: Imaging protocol: XR of the chest. Views: 1 view. COMPARISON: CR XR CHEST PORTABLE 12/31/2020 4:46 PM FINDINGS: Lungs: Chronic interstitial changes are present bilaterally. Increased density seen in the right lung base in the left retrocardiac area likely represent early airspace disease. Pleural spaces: Unremarkable. No pleural effusion. No pneumothorax. Heart/Mediastinum: The heart is prominent. Diaphragm: Elevation the right hemidiaphragm is noted. Bones/joints: Unremarkable. IMPRESSION: Increased airspace disease both lung bases may represent early infiltrate. Ordering Physician: Johnny Marion MD Date of Service: 04/18/21 Procedure(s): CT abdomen pelvis w con Accession Number(s): [id number] cc: Keo Hooper MD; Johnny Marion MD~ PROCEDURE INFORMATION: Exam: CT Abdomen And Pelvis With Contrast Exam date and time: 04/18/2021 4:57 AM Age: 85 years old Clinical indication: Other: Coughing up blood TECHNIQUE: Imaging protocol: Computed tomography of the abdomen and pelvis with contrast. Radiation optimization: All CT scans at this facility use at least one of these dose optimization techniques: automated exposure control; mA and/or kV adjustment per patient size (includes targeted exams where dose is matched to clinical indication); or iterative reconstruction. Contrast material: ISOVUE; Contrast volume: 75 ml; Contrast route: IV; COMPARISON: CR XR PELVIS 1-2V 12/05/2020 12:23 AM FINDINGS: Lungs: Consolidation of the right lower lobe and portions of the right middle and left lower lobes are noted. Pleural spaces: Small to moderate left and small right-sided pleural effusions are seen. Heart: Coronary atherosclerosis is present. Liver: Normal. No mass. Gallbladder and bile ducts: Normal. No calcified stones. No ductal dilation. Pancreas: Normal. No ductal dilation. Spleen: Normal. No splenomegaly. Adrenal glands: Normal. No mass. Kidneys and ureters: Normal. No
--- NOTE | 2021-04-23 13:16 | PC.NURSE ---
1316-physical therapy at bedside at this time
--- NOTE | 2021-04-23 14:25 | PC.NURSE ---
1423 - Spoke w/ pt's daughter, Joslyn, made her aware of pt being discharged. Reviewed DC follow-ups and meds being DC'd on to snf.
--- NOTE | 2021-04-23 14:25 | PC.NURSE ---
1425-detailed report called to [facility] BERTHA Shipman, family also notified of discharge and EMS notified of transport of pt back to residential
== END 2021-04-23 14:53 | DRG 193 ==
LOC: ER 07:28 → 2ND 07:37
PROVIDERS: Internal Medicine Pulmonary Disease; Nurse Practitioner Family; Admitting Provider Emergency Medicine; Emergency Provider Emergency Medicine; PCP Emergency Medicine; Visit Provider Emergency Medicine
PROC: 0B9F8ZX Drainage of Right Lower Lung Lobe, Via Natural or Artificial Opening Endoscopic, Diagnostic (ICD-10-PCS; principal; 2021-04-22 10:30)
DX: J18.9 Pneumonia, unspecified organism (principal); J96.01 Acute respiratory failure with hypoxia; J96.02 Acute respiratory failure with hypercapnia; I26.99 Other pulmonary embolism without acute cor pulmonale; J44.0 Chronic obstructive pulmonary disease with (acute) lower respiratory infection; R04.2 Hemoptysis; I11.0 Hypertensive heart disease with heart failure; I50.9 Heart failure, unspecified; I25.10 Atherosclerotic heart disease of native coronary artery without angina pectoris; F03.90 Unspecified dementia, unspecified severity, without behavioral disturbance, psychotic disturbance, mood disturbance, and anxiety; K21.9 Gastro-esophageal reflux disease without esophagitis; E78.5 Hyperlipidemia, unspecified; I25.2 Old myocardial infarction; R91.1 Solitary pulmonary nodule; M19.90 Unspecified osteoarthritis, unspecified site; Z20.822 Contact with and (suspected) exposure to COVID-19; E66.9 Obesity, unspecified; A49.8 Other bacterial infections of unspecified site; Z68.30 Body mass index [BMI] 30.0-30.9, adult; F41.9 Anxiety disorder, unspecified; R77.8 Other specified abnormalities of plasma proteins
CPT/HCPCS: 31625; 31624; 36415; 71045; 71270; 71275; 74177; 80048; 80053; 81001; 82803; 83605; 83735; 83880; 84145; 84484; 85007; 85025; 85651; 86140; 87040; 87070; 87081; 87086; 87102; 87116; 87186; 87205; 87206; 88112; 89051; 92610; 93005; 93306; 94640; 94660; 94761; 96365; 96367; 96375; 97110; 97162; 97166; 97530; 99285; C9803; J1956; J2405; J3370; Q9967; U0003; U0005

== ENCOUNTER → 2021-05-16 16:09 | Outpatient (CLI) | payer MEDICARE, MEDICAID, SELFPAY ==
--- NOTE | 2021-05-16 16:15 | XR_ITS ---
PROCEDURE INFORMATION: Exam: XR Chest Exam date and time: 05/16/2021 4:15 PM Age: 85 years old Clinical indication: Shortness of breath; Additional info: SOB TECHNIQUE: Imaging protocol: XR of the chest. Views: 2 views. COMPARISON: CR XR CHEST PORTABLE 04/23/2021 8:47 AM FINDINGS: Lungs: Minor atelectasis at the left lung base. No acute airspace consolidation. Pleural spaces: Unremarkable. No pleural effusion. No pneumothorax. Heart/Mediastinum: Unremarkable. No cardiomegaly. Vasculature: Aortic tortuosity. Diaphragm: Chronic elevation of the right hemidiaphragm. Bones/joints: Unremarkable. IMPRESSION: Minor left lung base atelectasis.
== END ==
PROVIDERS: PCP Emergency Medicine; Visit Provider Internal Medicine Pulmonary Disease
DX: R06.02 Shortness of breath (principal)
CPT/HCPCS: 71046

== ENCOUNTER 2021-06-19 19:35 | Emergency (ER) | payer MEDICARE, MEDICAID, SELFPAY ==
[2021-06-19 19:32] VITALS: BP 90/55; PULSE 65; RESP 19; TEMP 36.7; O2SAT 98; BMI 28.3
[2021-06-19 19:38] VITALS: BMI 28.3
--- NOTE | 2021-06-19 19:42 | ECG_ITS ---
APPROVED REPORT Exam: Resting ECG HR:62 bpm ECG Measurements Heart Rate 62 AXES NV 152 P 76 QRSd 144 QRS 29 QT 488 T 108 QTc 492 Conclusion SINUS RHYTHM WITH OCCASIONAL SUPRAVENTRICULAR PREMATURE COMPLEXES LEFT BUNDLE BRANCH BLOCK [120+ ms QRS DURATION, 80+ ms Q/S IN V1/V2, 85+ ms R IN I/aVL/V5/V6] ABNORMAL ECG UNCONFIRMED REPORT Electronically signed by : Robin Carvajal MD 06/20/2021 16:00:43
--- NOTE | 2021-06-19 20:06 | XR_ITS ---
PROCEDURE INFORMATION: Exam: XR Chest Exam date and time: 06/19/2021 8:20 PM Age: 85 years old Clinical indication: Screening exam; Other screening; Additional info: Cardiac workup TECHNIQUE: Imaging protocol: XR of the chest. Views: 1 view. Portable AP supine exam 8:23 p.m. COMPARISON: CR XR CHEST 2V 05/16/2021 4:16 PM FINDINGS: Tubes, catheters and devices: Overlying color television console monitor electrodes, external tubing and clothing artifacts. Lungs: Chronic elevation of the right hemidiaphragm with right lower pulmonary volume loss. Slight peripheral pulmonary interstitial prominence. No focal consolidation. Pleural spaces: Unremarkable. No pleural effusion. No pneumothorax. Heart/Mediastinum: Cardiac silhouette appears within upper limits normal size considering portable AP technique. Vasculature: Calcified plaques in the aortic arch. Bones/joints: Osteopenia. Advanced arthritic changes at the left shoulder.There are spinal degenerative changes, with multilevel disc narrrowing and spondylosis. Soft tissues: Chronic right upper quadrant abdominal surgical clips, correlate for cholecystectomy. IMPRESSION: 1. No acute cardiopulmonary findings. 2. Additional nonemergency and chronic findings as above.
[2021-06-19 20:53] LABS: Basophils # 0.1 K/mm3 (0-0.2); Basophils % 0.8 % (0.1-2.0); Eosinophils # 0.2 K/mm3 (0.0-0.4); Eosinophils % 1.9 % (0.1-12.0); Hematocrit 33.5 % (37.0-47.0); Hemoglobin 10.3 g/dL (12.2-16.2); Lymphocytes # 2.8 K/mm3 (0.7-4.5); Lymphocytes % 23.8 % (10-50); Mean Corpuscular HGB Conc 30.9 g/dL (31.8-35.4); Mean Corpuscular Volume 90.9 fl (81-99); Mean Platelet Volume 9.4 fl (7.4-10.4); Monocytes # 0.7 K/mm3 (0.1-1.0); Monocytes % 5.8 % (1.7-9.3); Neutrophils # 7.9 K/mm3 (1.8-7.8); Neutrophils % 67.8 % (37.0-80.0); Platelet Count 252 K/mm3 (142-424); Red Blood Count 3.69 M/mm3 (4.20-5.40); Red Cell Distribution Width 15.5 % (11.5-17.5); White Blood Count 11.6 K/mm3 (4.8-10.8)
[2021-06-19 21:06] LABS: Microscopic, Urine URINE MICROSCOPIC (MICROSCOPIC)
[2021-06-19 21:09] LABS: Alanine Aminotransferase 21 U/L (12-78); Albumin Level 4.1 g/dl (3.5-5.0); Albumin/Globulin Ratio 1.5 (1.1-1.8); Alkaline Phosphatase 88 U/L (38-126); Anion Gap 13.9 mEq/L (5-15); Aspartate Amino Transferase 30 U/L (14-36); Bilirubin,Total 0.3 mg/dl (0.2-1.3); Blood Urea Nitrogen 69 mg/dl (7-17); Calcium 8.7 mg/dl (8.4-10.2); Carbon Dioxide 30 mmol/L (22.0-30.0); Chloride 101 mmol/L (98-107); Creatinine Clearance Estimated 36 mL/min (50-200); Estimated Glomerular Filt Rate 39 ml/min (>60); GFR (African American) 47 ML/MIN (>60); Globulin 2.8 g/dL (1.3-3.2); Glucose 102 mg/dl (74-100); Potassium 5.9 mmoL/L (3.5-5.1); Sodium 139 mmol/L (136-145); Total Protein,Serum 6.9 g/dl (6.3-8.2)
[2021-06-19 21:13] LABS: C-Reactive Protein 5.3 mg/L (0-4)
--- NOTE | 2021-06-19 21:15 | HMH.EDWEAK ---
ED Disposition Clinical Impression: Left bundle branch block, Renal insufficiency UTI (urinary tract infection) Qualifiers: Urinary tract infection type: site unspecified Hematuria presence: without hematuria Qualified Code(s): N39.0 - Urinary tract infection, site not specified Disposition: Home, Self-Care Condition on Discharge: Good Instructions: DI for Urinary Tract Infection (UTI) Additional Instructions: use meds and follow up on urine culture Prescriptions: cephALEXin [cephALEXin 500mg capsule*] 500 mg PO TID #30 cap Transmission Status: Pending to [facility] Referrals: Johnny Marion MD [Primary Care Provider] - - Critical Care Critical Care Time: No Attestation: On 06/19/21, the high probability of a clinically significant, sudden or life threatening deterioration of the following system(s) required my full and direct attention, intervention and personal management. The time I documented below is in addition to time spent performing reported procedures but includes the following listed in this critical care notation. Medical Decision Making - Medical Records Medical records reviewed: Yes: I reviewed the patient's medical records. - Leonel Inquiry Pt receiving controlled substance: No Vital Signs: 06/19/21 19:32 Temperature 98.1 F Temperature Source Rectal Pulse Rate [Right] 65 Respiratory Rate 19 Blood Pressure [Right Arm] 90/55 L Blood Pressure Mean [Right Arm] 66 Blood Pressure Source [Right Arm] Automatic Cuff 02 Sat by Pulse Oximetry 98 Oxygen Delivery Method Nasal Cannula Oxygen Flow Rate (LPM) 2 - Lab Data Lab results reviewed: Yes: I reviewed the patient's lab results. Lab Results 06/19/21 20:47: WBC 11.6 H, RBC 3.69 L, Hgb 10.3 L, Hct 33.5 L, MCV 90.9, MCH 28.0, MCHC 30.9 L, RDW 15.5, Plt Count 252, MPV 9.4, Neut % (Auto) 67.8, Lymph % (Auto) 23.8, Barry % (Auto) 5.8, Eos % (Auto) 1.9, Baso % (Auto) 0.8, Neut # (Auto) 7.9 H, Lymph # (Auto) 2.8, Barry # (Auto) 0.7, Eos # (Auto) 0.2, Baso # (Auto) 0.1, ESR 101 H 06/19/21 20:47: Sodium 139, Potassium 5.9 H, Chloride 101, Carbon Dioxide 30, Anion Gap 13.9, BUN 69 H, Creatinine 1.30 H, Estimated Creat Clear 36, Estimated GFR 39 L, Est GFR ( Amer) 47 L, Glucose 102 H, Calcium 8.7, Total Bilirubin 0.3, AST 30, ALT 21, Alkaline Phosphatase 88, Troponin I 0.03, C-Reactive Protein 5.3 H, Total Protein 6.9, Albumin 4.1, Globulin 2.8, Albumin/Globulin Ratio 1.5, Procalcitonin 0.064 06/19/21 20:55: Urine Color Dk yellow, Urine Appearance Cloudy, Urine pH 7.0, Ur Specific Henderson 1.015, Urine Protein 2+, Urine Glucose (UA) Negative, Urine Ketones Negative, Urine Blood 3+, Urine Nitrate Negative, Urine Bilirubin Negative, Urine Urobilinogen 0.2, Ur Leukocyte Esterase 2+ A, Urine RBC Tntc, Urine WBC Tntc, Ur Squamous Epith Cells None, Urine Bacteria 3+ 06/19/21 23:18: Troponin I 0.03 Result diagrams: 06/19/21 20:47 06/19/21 20:47 Orders (Tests/Meds): ED MEDICATIONS Generic Name Dose Route Start Last Admin Trade Name Freq PRN Reason Stop Dose Admin Sodium Chloride 1,000 mls @ 999 mls/hr 06/19/21 20:15 06/19/21 21:07 Sod Chlor 0.9% 1000ml Bag IV 06/19/21 21:15 999 mls/hr .Q1H1M SRINIVASA Administration Lactated Ringer's 1,000 mls @ 999 mls/hr 06/19/21 21:15 06/19/21 21:14 Lactated Ringer's 1000 Ml Bag IV 06/19/21 22:15 Not Given .Q1H1M SRINIVASA Sodium Chloride 1,000 mls @ 999 mls/hr 06/20/21 05:00 Sod Chlor 0.9% 1000ml Bag IV 06/20/21 06:00 .Q1H1M SRINIVASA ORDERS Category Date Time Status Urine Culture Stat Micro 06/19/21 20:55 Received - Radiology Data #1 Image(s): Chest Image Reviewed: Yes I have reviewed radiologist's interpretation Preliminary Findings: Normal/NAD - ECG Data Tracing #1 Normal Sinus Rhythm: Yes Ischemic changes: non-specific ST-T wave changes Conduction abnormalities present: LBBB ECG compared to prior tracings: there are no significant changes M
[2021-06-19 21:22] LABS: Troponin I 0.03 ng/ml (0.00-0.034)
[2021-06-19 21:23] LABS: Appearance,Urine CLOUDY (Clear); Bilirubin,Urine Negative (Negative); Blood, Urine 3+ (Negative); Color,Urine DK YELLOW (Yellow); Glucose,Urine (UA) Negative (Negative); Ketones,Urine Negative (Negative); Leukocyte Esterase,Urine 2+ (Negative); Nitrate,Urine Negative (Negative); Protein,Urine 2+ (Negative); Specific Gravity, Urine 1.015 (1.005-1.030); Urobilinogen,Urine 0.2 EU/dl (0.2)
[2021-06-19 21:27] LABS: Procalcitonin 0.064 ng/mL (0.0-2.0)
[2021-06-19 21:28] LABS: Erythrocyte Sedimentation Rate 101 mm/hr (0-30)
[2021-06-19 21:35] LABS: Bacteria,Urine 3+ /lpf; RBC,Urine TNTC #/hpf (0-3); WBC,Urine TNTC #/hpf (0-3)
[2021-06-20 00:01] LABS: Troponin I 0.03 ng/ml (0.00-0.034)
[2021-06-20 05:14] VITALS: BP 107/53; PULSE 64; RESP 18; TEMP 36.7; O2SAT 98
--- NOTE | 2021-06-20 05:16 | PC.NURSE ---
called jenifer, pt ready to be taken back to [facility]. Pt changed again at this time, dry brief and new gown.
--- NOTE | 2021-06-20 05:16 | PC.NURSE ---
Called report to Deysi [facility]
== END 2021-06-20 05:44 | disposition home or self-care (01) ==
PROVIDERS: Emergency Provider Emergency Medicine; PCP Emergency Medicine
DX: N30.00 Acute cystitis without hematuria (principal); I44.7 Left bundle-branch block, unspecified; N28.9 Disorder of kidney and ureter, unspecified; J44.9 Chronic obstructive pulmonary disease, unspecified; K21.9 Gastro-esophageal reflux disease without esophagitis; E78.5 Hyperlipidemia, unspecified; I10 Essential (primary) hypertension; F41.9 Anxiety disorder, unspecified; I25.10 Atherosclerotic heart disease of native coronary artery without angina pectoris; I25.2 Old myocardial infarction; Z79.899 Other long term (current) drug therapy
CPT/HCPCS: 36415; 71045; 80053; 81001; 84145; 84484; 85025; 85651; 86140; 87086; 87088; 87186; 93005; 96365; 96366; 96367; 99284; J0696

== ENCOUNTER 2021-07-19 13:51 | Inpatient (IN) | payer MEDICAID, MEDICARE, SELFPAY ==
[2021-07-19] VITALS (28 sets, daily range): BP systolic 61–131; BP diastolic 28–62; PULSE 41–81; RESP 12–20; TEMP 33.3–36.9; O2SAT 95–100; BMI 25.0; BMI 24.7
--- NOTE | 2021-07-19 13:53 | ECG_ITS ---
APPROVED REPORT Exam: Resting ECG HR:45 bpm ECG Measurements Heart Rate 45 AXES GA 180 P 85 QRSd 165 QRS -16 QT 566 T 42 QTc 523 Conclusion SINUS BRADYCARDIA WITH MARKED SINUS ARRHYTHMIA LEFT BUNDLE BRANCH BLOCK [120+ ms QRS DURATION, 80+ ms Q/S IN V1/V2, 85+ ms R IN I/aVL/V5/V6] PROLONGED QT INTERVAL CRITICAL TEST RESULT UNCONFIRMED REPORT Electronically signed by : Robin Carvajal MD 07/19/2021 17:03:10
--- NOTE | 2021-07-19 14:03 | CT_ITS ---
FINAL REPORT TECHNIQUE: Axial CT images were performed through the head. Coronal reformatted images were submitted. This study was performed with techniques to keep radiation doses as low as reasonably achievable (ALARA). Individualized dose reduction techniques using automated exposure control or adjustment of mA and/or kV according to the patient's size were employed. CLINICAL HISTORY: AMS COMPARISON: December 05, 2020 FINDINGS: The head is asymmetrically positioned in the gantry. There is mild to moderate cortical atrophy. The ventricles are normal in size. There is no evidence of hemorrhage. There is no mass or edema identified. There is no abnormal extra-axial fluid seen. There are retention cysts in the right maxillary sinus. There is mild mucoperiosteal thickening in the ethmoid air cells. There is moderate hyperostosis frontalis interna. IMPRESSION: Atrophy. No acute intracranial process. Reviewed, Interpreted and Dictated by Samir Vance MD Transcribed by Elmer Jose Authenticated by Samir Vance MD on 07/19/2021 04:25:[address] [facility]
--- NOTE | 2021-07-19 14:03 | XR_ITS ---
FINAL REPORT CLINICAL HISTORY: SOA COMPARISON: June 19, 2021 FINDINGS: The heart is mildly enlarged. The mediastinum is normal. There is mild elevation of the right hemidiaphragm. There are chronic changes in the periphery of both lungs. There are no pleural effusions. There is no pneumothorax. There is no osseous abnormality. IMPRESSION: No acute cardiopulmonary process Reviewed, Interpreted and Dictated by Samir Vance MD Transcribed by Elmer Jose Authenticated by Samir Vance MD on 07/19/2021 04:25:19 PM [facility]
--- NOTE | 2021-07-19 14:17 | HMH.EDGENADL ---
ED Disposition Clinical Impression: Diverticulitis UTI (urinary tract infection) Qualifiers: Urinary tract infection type: site unspecified Hematuria presence: without hematuria Qualified Code(s): N39.0 - Urinary tract infection, site not specified Pancreatitis Qualifiers: Chronicity: acute Pancreatitis type: unspecified pancreatitis type Acute pancreatitis complication: unspecified Qualified Code(s): K85.90 - Acute pancreatitis without necrosis or infection, unspecified Disposition: Admitted As Inpatient Condition on Discharge: Undetermined - Critical Care Critical Care Time: Yes Attestation: On , the high probability of a clinically significant, sudden or life threatening deterioration of the following system(s) required my full and direct attention, intervention and personal management. The time I documented below is in addition to time spent performing reported procedures but includes the following listed in this critical care notation. Vital system(s) involved:: Circulatory Failure, Respiratory Failure, Renal Failure, Shock (Septic) My critical care processes included: Assessment & monitoring of V/S, Initial and Re-exams, Data Review/Interpretation, Coordinating Care, Medication Orders and management, Documentation Medical Decision Making - Medical Records Medical records reviewed: Yes: I reviewed the patient's medical records. - Leonel Inquiry Pt receiving controlled substance: No Vital Signs: 07/19/21 14:00 07/19/21 14:46 07/19/21 15:00 Temperature 92.4 F L Temperature Source Rectal Pulse Rate 81 43 L Pulse Rate [Apical] 44 L Respiratory Rate 14 13 12 Blood Pressure 77/37 L 72/33 L Blood Pressure [Right Arm] 72/50 L Blood Pressure Mean 56 47 Blood Pressure Mean [Right Arm] 57 Blood Pressure Source [Right Arm] Manual Cuff/ Auscultation Blood Pressure Position [Right Arm] Supine 02 Sat by Pulse Oximetry 98 95 95 Oxygen Delivery Method Nasal Cannula Nasal Cannula Nasal Cannula Oxygen Flow Rate (LPM) 2 2 2 07/19/21 15:18 07/19/21 15:30 07/19/21 15:33 Temperature 92.0 F L Temperature Source Rectal Pulse Rate 47 L 45 L 44 L Pulse Rate [Apical] Respiratory Rate 12 14 14 Blood Pressure 61/28 L 71/32 L 71/32 L Blood Pressure [Right Arm] Blood Pressure Mean 39 44 Blood Pressure Mean [Right Arm] Blood Pressure Source [Right Arm] Blood Pressure Position [Right Arm] 02 Sat by Pulse Oximetry 98 98 100 Oxygen Delivery Method Nasal Cannula Nasal Cannula Nasal Cannula Oxygen Flow Rate (LPM) 2 2 2 07/19/21 15:45 07/19/21 16:00 07/19/21 16:26 Temperature Temperature Source Pulse Rate 44 L 68 64 Pulse Rate [Apical] Respiratory Rate 14 12 16 Blood Pressure 64/31 L 67/31 L 85/40 L Blood Pressure [Right Arm] Blood Pressure Mean 44 37 51 Blood Pressure Mean [Right Arm] Blood Pressure Source [Right Arm] Blood Pressure Position [Right Arm] 02 Sat by Pulse Oximetry 97 96 95 Oxygen Delivery Method Nasal Cannula Nasal Cannula Nasal Cannula Oxygen Flow Rate (LPM) 3 2 07/19/21 16:30 07/19/21 17:01 07/19/21 17:15 Temperature Temperature Source Pulse Rate 62 49 L 41 L Pulse Rate [Apical] Respiratory Rate 16 14 14 Blood Pressure 72/37 L 123/62 131/56 L Blood Pressure [Right Arm] Blood Pressure Mean 44 69 70 Blood Pressure Mean [Right Arm] Blood Pressure Source [Right Arm] Blood Pressure Position [Right Arm] 02 Sat by Pulse Oximetry 95 99 98 Oxygen Delivery Method Nasal Cannula Nasal Cannula Nasal Cannula Oxygen Flow Rate (LPM) 2 2 2 07/19/21 17:30 07/19/21 17:45 07/19/21 18:00 Temperature Temperature Source Pulse Rate 50 L 56 L Pulse Rate [Apical] Respiratory Rate 14 14 Blood Pressure 112/56 L 97/41 L 100/41 L Blood Pressure [Right Arm] Blood Pressure Mean 79 67 64 Blood Pressure Mean [Right Arm] Blood Pressure Source [Right Arm] Blood Pressure Position [Right Arm] 02 Sat by Pulse Oximetry 99 9
[2021-07-19 14:37] LABS: Chloride 107 mmol/L (98-107); Potassium 5.3 mmoL/L (3.5-5.1); Sodium 138 mmol/L (136-145)
[2021-07-19 14:38] LABS: Microscopic, Urine URINE MICROSCOPIC (MICROSCOPIC)
[2021-07-19 14:39] LABS: Blood Urea Nitrogen 75 mg/dl (7-17); Estimated Glomerular Filt Rate 31 ml/min (>60); GFR (African American) 37 ML/MIN (>60)
[2021-07-19 14:40] LABS: Alanine Aminotransferase 106 U/L (12-78); Albumin Level 3.2 g/dl (3.5-5.0); Albumin/Globulin Ratio 1.3 (1.1-1.8); Alkaline Phosphatase 150 U/L (38-126); Anion Gap 13.3 mEq/L (5-15); Aspartate Amino Transferase 111 U/L (14-36); Bilirubin,Total 0.2 mg/dl (0.2-1.3); Calcium 8.7 mg/dl (8.4-10.2); Carbon Dioxide 23 mmol/L (22.0-30.0); Globulin 2.4 g/dL (1.3-3.2); Glucose 115 mg/dl (74-100); Total Protein,Serum 5.6 g/dl (6.3-8.2)
[2021-07-19 14:44] LABS: Lactic Acid 0.5 mmol/L (0.7-2.1)
--- NOTE | 2021-07-19 14:46 | PC.NURSE ---
on phone with pt daughter clover collier to inquire about code status for pt. Per clover pt is a DNR , does not want cpr, electric shock, intubation or a ventilator. etta Petit confirmed this clover as well.
--- NOTE | 2021-07-19 14:48 | PC.NURSE ---
pt to CT
[2021-07-19 14:49] LABS: NT Pro Brain Natriuretic Pep. 909 pg/mL (0-450)
[2021-07-19 14:52] LABS: Basophils # 0.1 K/mm3 (0-0.2); Basophils % 0.6 % (0.1-2.0); Eosinophils # 0.1 K/mm3 (0.0-0.4); Eosinophils % 0.6 % (0.1-12.0); Hematocrit 28.5 % (37.0-47.0); Hemoglobin 8.7 g/dL (12.2-16.2); Lymphocytes # 1.2 K/mm3 (0.7-4.5); Lymphocytes % 13.6 % (10-50); Mean Corpuscular HGB Conc 30.6 g/dL (31.8-35.4); Mean Corpuscular Hemoglobin 27.8 pg (27.0-31.2); Mean Corpuscular Volume 91.1 fl (81-99); Mean Platelet Volume 11.4 fl (7.4-10.4); Monocytes # 0.4 K/mm3 (0.1-1.0); Monocytes % 4.5 % (1.7-9.3); Neutrophils # 7.4 K/mm3 (1.8-7.8); Neutrophils % 80.8 % (37.0-80.0); Platelet Count 116 K/mm3 (142-424); Red Blood Count 3.13 M/mm3 (4.20-5.40); Red Cell Distribution Width 17.2 % (11.5-17.5); Troponin I 0.02 ng/ml (0.00-0.034); White Blood Count 9.2 K/mm3 (4.8-10.8)
[2021-07-19 14:54] LABS: Appearance,Urine CLOUDY (Clear); Bilirubin,Urine Negative (Negative); Blood, Urine 2+ (Negative); Color,Urine YELLOW (Yellow); Glucose,Urine (UA) Negative (Negative); Ketones,Urine Negative (Negative); Leukocyte Esterase,Urine 2+ (Negative); Nitrate,Urine Negative (Negative); Protein,Urine 1+ (Negative); Specific Gravity, Urine 1.025 (1.005-1.030); Urobilinogen,Urine 0.2 EU/dl (0.2)
--- NOTE | 2021-07-19 14:59 | PC.NURSE ---
pt return from CT
--- NOTE | 2021-07-19 14:59 | PC.NURSE ---
notified RT of VBG
--- NOTE | 2021-07-19 15:10 | HMH.PHACONS ---
- Pharmacy Consult Date: 07/19/21 Time: 15:10 Referring provider: DR. WILSON Reason for Consult:: VANCOMYCIN DOSING Allergies and ADEs:: Allergies Allergy/AdvReac Type Severity Reaction Status Date / Time alendronate sodium Allergy Unknown Verified 12/19/20 09:43 [From Fosamax] NSAIDS (Non-Steroidal Allergy Unknown Verified 12/19/20 09:43 Anti-Inflamma Penicillins Allergy Unknown Verified 12/19/20 09:43 Home Medications:: Home Medications Medication Instructions Recorded Confirmed Type acetaminophen 500 mg tablet 1,000 mg PO Q4HP PRN 12/11/19 05/20/21 History atorvastatin 40 mg tablet 40 mg PO HS 12/11/19 05/20/21 History bisacodyl 10 mg rectal suppository 10 mg RC TUTH PRN 12/11/19 05/20/21 History clopidogrel 75 mg tablet 75 mg PO DAILY 12/11/19 05/20/21 History docusate sodium 250 mg capsule 250 mg PO DAILY 12/11/19 05/20/21 History lisinopril 2.5 mg tablet 2.5 mg PO DAILY 12/11/19 05/20/21 History melatonin 3 mg capsule 3 mg PO 1700 12/11/19 05/20/21 History ondansetron HCl 4 mg tablet 4 mg PO Q6HP PRN 12/11/19 05/20/21 History ropinirole 2 mg tablet,extended 2 mg PO BID 12/11/19 05/20/21 History release 24 hr Aspirin [Aspirin 81mg chewable 81 mg PO DAILY 12/10/20 05/20/21 History tab] Metoprolol Tartrate [Lopressor 12.5 mg PO BID 12/10/20 05/20/21 History 25mg tablet] gabapentin 100 mg capsule 100 mg PO BID #60 cap 03/29/21 05/20/21 Rx Furosemide [Lasix 40mg tablet] 40 mg PO DAILY 04/18/21 05/20/21 History Spironolactone [Spironolactone 25 mg PO DAILY 04/18/21 05/20/21 History 25mg Tablet] guaiFENesin [Robafen] 10 ml PO QIDP PRN 04/18/21 05/20/21 History Budesonide [Pulmicort 0.5mg/2mL 0.5 mg IH BIDRT 30 Days #60 each 04/23/21 05/20/21 Rx neb] formoterol fumarate 20 mcg/2 mL 2 ml INHALATION BID 90 Days #180 ml 05/16/21 05/20/21 Rx solution for nebulization ipratropium 0.5 mg-albuterol 3 mg 3 ml INHALATION QID PRN 90 Days 05/16/21 05/20/21 Rx (2.5 mg base)/3 mL nebulization #270 ml soln revefenacin 175 mcg/3 mL solution 175 mcg INHALATION DAILY 90 Days 05/16/21 05/20/21 Rx for nebulization #270 ml diazepam 5 mg tablet 5 mg PO BID tab 05/20/21 History sertraline 25 mg tablet 50 mg PO DAILY tab 05/20/21 05/20/21 History cephALEXin [cephALEXin 500mg 500 mg PO TID #30 cap 06/20/21 Rx capsule*] hydrocodone 5 mg-acetaminophen 325 1 tab PO BID #60 tab 06/26/21 Rx mg tablet Height: 1.65 m Weight: 68.039 kg Laboratory Results:: Laboratory Results - last 24 hr 07/19/21 14:06: WBC 9.2, RBC 3.13 L, Hgb 8.7 L, Hct 28.5 L, MCV 91.1, MCH 27.8, MCHC 30.6 L, RDW 17.2, Plt Count 116 L, MPV 11.4 H, Neut % (Auto) 80.8 H, Lymph % (Auto) 13.6, Lares % (Auto) 4.5, Eos % (Auto) 0.6, Baso % (Auto) 0.6, Neut # (Auto) 7.4, Lymph # (Auto) 1.2, Lares # (Auto) 0.4, Eos # (Auto) 0.1, Baso # (Auto) 0.1 07/19/21 14:06: Sodium 138, Potassium 5.3 H, Chloride 107, Carbon Dioxide 23, Anion Gap 13.3, BUN 75 H, Creatinine 1.60 H, Estimated GFR 31 L, Est GFR ( Amer) 37 L, Glucose 115 H, Calcium 8.7, Total Bilirubin 0.2, AST 111 H, ALT 106 H, Alkaline Phosphatase 150 H, Troponin I 0.02, NT-Pro-B Natriuret Pep 909 H, Total Protein 5.6 L, Albumin 3.2 L, Globulin 2.4, Albumin/Globulin Ratio 1.3 07/19/21 14:22: Urine Color Yellow, Urine Appearance Cloudy, Urine pH 5.0, Ur Specific [place] 1.025, Urine Protein 1+, Urine Glucose (UA) Negative, Urine Ketones Negative, Urine Blood 2+, Urine Nitrate Negative, Urine Bilirubin Negative, Urine Urobilinogen 0.2, Ur Leukocyte Esterase 2+ A 07/19/21 14:23: Lactate 0.5 L Medical History: Reports:: Anxiety, Atherosclerotic Heart Disease, Congestive Heart Failure, Chronic Obstructive Pulmonary Disease (COPD), Coronary Artery Disease, Gastroesophageal Reflux Disease(GERD), Hyperlipidemia, Hypertension, Myocardial Infarction Denies:: Diabetes Mellitus Type 1 Assessment and Plan - Assessment and plan all Dx Assessment and Plan for all problems:: Age: 86 y
[2021-07-19 15:16] LABS: VBG Base Excess -6.1 mmol/L (-2.4-2.3); VBG HCO3 21.1 mmol/L (23-30); VBG Oxygen Saturation 99.4 % (50-70); VBG PCO2 48.6 mmol/L (35-51); VBG PH 7.26 mmol/L (7.31-7.41); VBG PO2 143.7 mmol/L (28-40); VBG Total CO2 22.6 mmol/L (23-27)
[2021-07-19 15:18] LABS: Lipase 5143 U/L (23-300)
--- NOTE | 2021-07-19 15:21 | PC.NURSE ---
1517 wally from lab called with critical lab, lipase 5143. repeated and verified. pt name and date of verified. 1520 notified of lab result, no new orders
--- NOTE | 2021-07-19 15:22 | PC.NURSE ---
VELMA THOMAS speaking with pt daughter Joslyn Osullivan at this time
[2021-07-19 15:25] LABS: Bacteria,Urine 2+ /lpf; WBC,Urine 20-50 #/hpf (0-3)
--- NOTE | 2021-07-19 15:44 | US_ITS ---
PROCEDURE INFORMATION: Exam: US Abdomen, Limited; Right Upper Quadrant Exam date and time: 07/19/2021 3:57 PM Age: 86 years old Clinical indication: Abnormal findings; Abnormal lab test; Elevated lipase; Patient HX: PT unresponsive-- diff scan--unable to differentiate gb from kristine; Additional info: R/O gall stones, critical lipase TECHNIQUE: Imaging protocol: US abdomen. Real time ultrasound with image documentation. Limited exam focused on the right upper quadrant. COMPARISON: CT ABDOMEN PELVIS W CON 04/18/2021 5:42 AM FINDINGS: Liver: Normal liver. Patent portal vein. Gallbladder: Absent. Biliary ducts: Normal. No stones. No dilation. Pancreas: Visualized pancreas is unremarkable. Pancreatitis is better demonstrated on the recent CT. Right kidney: Normal. No mass. No hydronephrosis. IMPRESSION: 1. Pancreatitis, better demonstrated by CT. 2. Unremarkable common bile duct by ultrasound.
--- NOTE | 2021-07-19 15:53 | PC.NURSE ---
ultrasound staff at
--- NOTE | 2021-07-19 16:13 | CT_ITS ---
PROCEDURE INFORMATION: Exam: CT Abdomen And Pelvis Without Contrast Exam date and time: 07/19/2021 4:37 PM Age: 86 years old Clinical indication: Abnormal findings; Abnormal lab test; Elevated lipase; Additional info: Elevated lipase, sepsis? TECHNIQUE: Imaging protocol: Computed tomography of the abdomen and pelvis without contrast. Radiation optimization: All CT scans at this facility use at least one of these dose optimization techniques: automated exposure control; mA and/or kV adjustment per patient size (includes targeted exams where dose is matched to clinical indication); or iterative reconstruction. COMPARISON: CT ABDOMEN PELVIS W CON 04/18/2021 5:42 AM FINDINGS: Pleural spaces: Tiny right pleural effusion. Airspace consolidation in both costophrenic angles, more on the right. The amount of fluid and airspace consolidation is decreased compared to the prior study. Diaphragm: Elevation of the right hemidiaphragm again noted. 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 Liver: Unremarkable. No focal lesions. Gallbladder and bile ducts: Prior cholecystectomy again noted. Possible abnormal density within a dilated extrahepatic common bile duct. The bile duct measures up to 18 mm in diameter. Pancreas: Possible diffuse edema within the pancreas. This finding is difficult to characterize fully without intravenous contrast. Spleen: Normal. No splenomegaly. Adrenal glands: Normal. No mass. Kidneys and ureters: Normal. No hydronephrosis. Stomach and bowel: Diverticular disease of the colon at the junction of the descending and sigmoid. Inflammatory stranding in the adjacent mesenteric fat. No intraperitoneal free gas or abscess. The remaining intestine is unremarkable. No other inflammatory change. No obstruction. Appendix: No evidence for appendicitis. Normal diameter. No inflammation. Intraperitoneal space: No free peritoneal fluid or gas. Vasculature: Unremarkable. No abdominal aortic aneurysm. Lymph nodes: Unremarkable. No enlarged lymph nodes. Urinary bladder: Unremarkable as visualized. Reproductive: Unremarkable as visualized. Bones/joints: Bilateral femoral nails. Marked degenerative change of both hip joints with near complete resorption and partial ankylosis on the left and partial resorption and marked subluxation on the right. Soft tissues: Unremarkable. IMPRESSION: 1. Possible abnormal density within a dilated extrahepatic common bile duct. This may represent small stones or sludge. Ultrasound or MR cholangiography would be helpful to more completely characterize. 2. Possible edema in the pancreas may represent acute pancreatitis. A repeat study with contrast would be helpful to characterize further. 3. Diverticulitis at the junction of the descending and sigmoid. No perforation or abscess.
--- NOTE | 2021-07-19 16:40 | PC.NURSE ---
levophed drip increased to 4mcg at this time
--- NOTE | 2021-07-19 16:49 | PC.NURSE ---
return from Ct scan at this time, I transported with pt to CT
--- NOTE | 2021-07-19 16:51 | PC.NURSE ---
pt daughter at BS
--- NOTE | 2021-07-19 16:56 | PC.NURSE ---
pt more alert than previously was, pt is opening her eyes without stimuli and did talk some when bring pt back from CT scanner. current bp 80/32 notified ER MD of pt changes.
--- NOTE | 2021-07-19 17:15 | PC.NURSE ---
Went into patient's room to do oral care. Patient's family member stated her mouth was dry. Patient's mouth is now moist and oral care was left at bedside. Asked patient's family members if there was anything we could get for them and they said no.
--- NOTE | 2021-07-19 17:30 | PC.NURSE ---
has been paged
--- NOTE | 2021-07-19 17:32 | PC.NURSE ---
on the phone with
[2021-07-19 17:39] LABS: Troponin I 0.02 ng/ml (0.00-0.034)
--- NOTE | 2021-07-19 17:47 | PC.NURSE ---
MD spoke with daughter who wished to provide comfort care only at this time.
--- NOTE | 2021-07-19 18:14 | PC.NURSE ---
rectal temperature 95.2, clarissa hugger temperature decreased, warm blankets still in place on pt.
--- NOTE | 2021-07-19 18:15 | PC.NURSE ---
depends changed at this time, pt had a small BM.
[2021-07-19 18:24] LABS: Coronavirus 19, PCR Not Detected (NotDetected); Influenza A, PCR Not Detected (NotDetected); Influenza B, PCR Not Detected (NotDetected)
--- NOTE | 2021-07-19 18:24 | PC.NURSE ---
speaking with Dr. Marion
--- NOTE | 2021-07-19 18:30 | PC.NURSE ---
[address] romero about admission, agrees to admission
--- NOTE | 2021-07-19 18:34 | PC.NURSE ---
speaking with family
--- NOTE | 2021-07-19 18:35 | PC.NURSE ---
[id number] speaking with family, poc discussed
--- NOTE | 2021-07-19 18:49 | PC.NURSE ---
Notified house of admission and that at this time while family does not want to purse aggressive measures they wish to continue with the IV antibiotics and levophed.
--- NOTE | 2021-07-19 19:25 | PC.NURSE ---
Called lab to check time left on covid swab, resulting now.
--- NOTE | 2021-07-19 20:01 | PC.NURSE ---
Increased levophed to 8mcg/min d/t SBP 88
--- NOTE | 2021-07-19 20:33 | PC.NURSE ---
titrated levophed down to 6mcg/min
--- NOTE | 2021-07-19 20:41 | HMH.HP ---
*Admission Date: 07/19/21 *Chief complaint: altered mental status *History of present illness: this elderly pt was sent [facility] with altered mental status -86-year-old female with history of respiratory failure, CAD, left bundle branch block, CKD presenting to the ED with lethargy, poor p.o. intake, bradycardia. Per EMS report from senior care patient is typically more interactive at baseline than she currently is, she did not eat her breakfast this morning. When they arrived she was bradycardic and in the 40s however normotensive, afebrile. She is moving all 4 extremities, she appears sleepy and responds to strong verbal stimuli as well as noxious stimuli. She does not have any abdominal pain. Further history of present illness unable to be obtained secondary to patient's mental status. 86-year-old female with history of respiratory failure, CKD, CAD, left bundle branch block presenting to the ED with lethargy, bradycardia peer differential diagnoses include sepsis, urinary tract infection, ACS, CHERRY, deconditioning, intracranial hemorrhage. Given this work-up will include CT head, chest x-ray, EKG, troponins, CBC, CMP, VBG, blood cultures, urine cultures. Patient is hypotensive, she was treated with 30 cc/kg boluses of lactated Ringer's. Started empiric antibiotics for sepsis given her hypothermia and hypotension. Her lactate is normal, she does not have a leukocytosis. Her lipase extremely elevated at 5000, LFTs are mildly elevated however total bilirubin normal. Obtained a CT head that did not show acute intracranial hemorrhage, would like to obtain a contrasted CT scan however given her kidney function we are unable to do this. We did perform right upper quadrant ultrasound and then a noncontrast CT scan which shows diverticulitis, extrahepatic biliary dilation, pancreatic edema. Spoke with on-call surgeon who recommended transfer to tertiary facility if patient's family would like aggressive treatment or surgical consultation. After speaking with them they would prefer for continuation of antibiotics, norepinephrine for her hypotension. Will have patient admitted to [facility] for medical management, prognosis guarded. [facility] History I have reviewed the patient's past medical history: Yes Medical History: Reports:: Anxiety, Atherosclerotic Heart Disease, Congestive Heart Failure, Chronic Obstructive Pulmonary Disease (COPD), Coronary Artery Disease, Gastroesophageal Reflux Disease(GERD), Hyperlipidemia, Hypertension, Myocardial Infarction Denies:: Diabetes Mellitus Type 1 *Have you ever received a pneumonia vaccine?: No *Have you received a flu vaccine this season?: No Other Medical History: Reports: Arthritis Other Surgeries: Yes: Other - *Social History Smoking Status: Former smoker Tobacco Type: cigarettes Alcohol Intake: never Alcohol Intake Frequency:: other Substance Use Type: denies use, other *Occupational Status:: other Housing: senior care *Travel in the last 8 weeks: None - Psychiatric History Pschychiatric History:: Reports:: Anxiety Family Hx:: Heart Attack Review of Systems - Review of Systems Review of systems:: unable to obtain Meds Home Medications Medication Instructions Recorded Confirmed Type acetaminophen 500 mg tablet 1,000 mg PO Q4HP PRN 12/11/19 07/20/21 History atorvastatin 40 mg tablet 40 mg PO HS 12/11/19 07/19/21 History bisacodyl 10 mg rectal suppository 10 mg RC TUTH PRN 12/11/19 07/20/21 History clopidogrel 75 mg tablet 75 mg PO DAILY 12/11/19 07/19/21 History docusate sodium 250 mg capsule 250 mg PO DAILY 12/11/19 07/19/21 History lisinopril 2.5 mg tablet 2.5 mg PO DAILY 12/11/19 07/20/21 History melatonin 3 mg capsule 3 mg PO 1700 12/11/19 07/20/21 History ondansetron HCl 4 mg tablet 4 mg PO Q6HP PRN 12/11/19 07/20/21 History ropinirole 2 mg tablet,extended 2 mg PO BID 12/11/19 07/20/21 History release 24 hr Aspirin [Aspirin 81mg chewable 81 mg PO DAILY 12/10/20 07/19/21 History
--- NOTE | 2021-07-19 20:57 | PC.NURSE ---
called report to Jennifer Elizabeth RN
--- NOTE | 2021-07-19 21:17 | PC.NURSE ---
patient up to floor via stretcher @ this time.
[2021-07-20] VITALS (15 sets, daily range): BP systolic 84–132; BP diastolic 36–63; PULSE 60–89; RESP 14–20; TEMP 36.8–37.3; O2SAT 92–100; BMI 24.8
--- NOTE | 2021-07-20 00:24 | PC.WOUNDNOTE ---
stage 2 (R) buttock
--- NOTE | 2021-07-20 04:42 | PC.NURSE ---
Pt is awake in bed. Confused, but responds when spoken to. She remains on Levophed gtt. Currently infusing @ 8 mcg/min. LR @ 100 ml/hr. She is on 2L O2 NC with sats in lower 90s. Rhonchi noted to bilateral anterior lung trejo. Pt turned Q2 hr. Stage 2 noted to (R) buttock. Picture on chart. F/C draining to bedside. No other concerns. Will continue to monitor.
[2021-07-20 08:46] LABS: Chloride 110 mmol/L (98-107); Potassium 5.2 mmoL/L (3.5-5.1); Sodium 135 mmol/L (136-145)
[2021-07-20 08:49] LABS: Anion Gap 16.2 mEq/L (5-15); Blood Urea Nitrogen 53 mg/dl (7-17); Carbon Dioxide 14 mmol/L (22.0-30.0); Creatinine Clearance Estimated 43 mL/min (50-200); Estimated Glomerular Filt Rate 53 ml/min (>60); GFR (African American) 64 ML/MIN (>60)
[2021-07-20 08:50] LABS: Calcium 7.6 mg/dl (8.4-10.2); Glucose 61 mg/dl (74-100)
[2021-07-20 09:21] LABS: Basophils % 0.2 % (0.1-2.0); Eosinophils # 0.1 K/mm3 (0.0-0.4); Eosinophils % 0.4 % (0.1-12.0); Hematocrit 22.8 % (37.0-47.0); Lymphocytes # 2.5 K/mm3 (0.7-4.5); Lymphocytes % 19.9 % (10-50); Mean Corpuscular HGB Conc 31.7 g/dL (31.8-35.4); Mean Corpuscular Hemoglobin 28.9 pg (27.0-31.2); Mean Platelet Volume 11.3 fl (7.4-10.4); Monocytes % 7.7 % (1.7-9.3); Neutrophils # 9.1 K/mm3 (1.8-7.8); Neutrophils % 71.8 % (37.0-80.0); Platelet Count 137 K/mm3 (142-424); Red Blood Count 2.51 M/mm3 (4.20-5.40); Red Cell Distribution Width 16.3 % (11.5-17.5); White Blood Count 12.7 K/mm3 (4.8-10.8)
[2021-07-20 09:38] LABS: Hemoglobin 7.2 g/dL (12.2-16.2)
--- NOTE | 2021-07-20 09:45 | HMH.PHAVTE ---
[facility] Pharmacy VTE Monitoring - Patient Demographics Admission date: 07/19/21 Report Date: 07/20/21 Time: 09:45 Allergies/Adverse Reactions: Patient Allergies alendronate sodium [From Fosamax] Allergy (Unknown, Verified 12/19/20 09:43) NSAIDS (Non-Steroidal Anti-Inflamma Allergy (Unknown, Verified 12/19/20 09:43) Penicillins Allergy (Unknown, Verified 12/19/20 09:43) Height: 1.65 m Weight: 67.6 kg Patient Problems: Current Active Problems CAD (coronary artery disease) (Chronic) UTI (urinary tract infection) (Acute) Diverticulitis (Acute) Pancreatitis (Acute) Anemia (Acute) Thrombocytopenia (Acute) CHERRY (acute kidney injury) (Acute) Elevated LFTs (Acute) Left bundle branch block (LBBB) (Acute) Prolonged Q-T interval on ECG (Acute) COPD (chronic obstructive pulmonary disease) (Chronic) - VTE Risk Labs: VTE Related Lab Results Hgb 7.2 g/dL (12.2-16.2) L D 07/20/21 08:00 Hct 22.8 % (37.0-47.0) L 07/20/21 08:00 Plt Count 137 K/mm3 (142-424) L 07/20/21 08:00 BUN 53 mg/dl (7-17) H D 07/20/21 08:00 Creatinine 1.00 mg/dl (0.52-1.04) D 07/20/21 08:00 Estimated Creat Clear 43 mL/min (50-200) 07/20/21 08:00 VTE Risk Level: Moderate Risk - Prophylaxis VTE Prophylaxis Ordered?: Yes Types of VTE Prophylaxis: TEDS Knee High Location of Applied Device: Bilateral Lower Extremeties
--- NOTE | 2021-07-20 11:54 | HMH.PHAINT ---
MEDICATION RECONCILIATION COMPLETED ON PATIENT USING [facility] FROM [facility]. -ALVAREZ WALKER, JIMMIED
--- NOTE | 2021-07-20 11:56 | HMH.ACPN2 ---
Internal Medicine - PN: Subj *Date: 07/21/21 *Time: 10:40 Interval history: doing better - more alert - will try to wean off bp support Exam Vital signs and Labs for Last 24 Hours: Temp Pulse Resp BP Pulse Ox 99.2 F 77 18 91/53 L 98 07/20/21 04:00 07/20/21 10:00 07/20/21 10:00 07/20/21 10:00 07/20/21 10:00 Laboratory Results - last 24 hr 07/19/21 14:03: VBG pH 7.26 L, VBG pCO2 48.6, VBG pO2 143.7 H, VBG HCO3 21.1 L, VBG Total CO2 22.6 L, VBG O2 Saturation 99.4 H, VBG Base Excess -6.1 L 07/19/21 14:06: WBC 9.2, RBC 3.13 L, Hgb 8.7 L, Hct 28.5 L, MCV 91.1, MCH 27.8, MCHC 30.6 L, RDW 17.2, Plt Count 116 L, MPV 11.4 H, Neut % (Auto) 80.8 H, Lymph % (Auto) 13.6, [place] % (Auto) 4.5, Eos % (Auto) 0.6, Baso % (Auto) 0.6, Neut # (Auto) 7.4, Lymph # (Auto) 1.2, [place] # (Auto) 0.4, Eos # (Auto) 0.1, Baso # (Auto) 0.1 07/19/21 14:06: Sodium 138, Potassium 5.3 H, Chloride 107, Carbon Dioxide 23, Anion Gap 13.3, BUN 75 H, Creatinine 1.60 H, Estimated GFR 31 L, Est GFR ( Amer) 37 L, Glucose 115 H, Calcium 8.7, Total Bilirubin 0.2, AST 111 H, ALT 106 H, Alkaline Phosphatase 150 H, Troponin I 0.02, NT-Pro-B Natriuret Pep 909 H, Total Protein 5.6 L, Albumin 3.2 L, Globulin 2.4, Albumin/Globulin Ratio 1.3, Lipase 5143 H 07/19/21 14:22: Urine Color Yellow, Urine Appearance Cloudy, Urine pH 5.0, Ur Specific [place] 1.025, Urine Protein 1+, Urine Glucose (UA) Negative, Urine Ketones Negative, Urine Blood 2+, Urine Nitrate Negative, Urine Bilirubin Negative, Urine Urobilinogen 0.2, Ur Leukocyte Esterase 2+ A, Urine RBC 10-20, Urine WBC 20-50, Ur Squamous Epith Cells None, Urine Bacteria 2+ 07/19/21 14:23: Lactate 0.5 L 07/19/21 17:05: Troponin I 0.02 07/19/21 18:20: SARS-CoV-2 (PCR) Not detected, Influenza A Untype (PCR) Not detected, Influenza Type B (PCR) Not detected 07/20/21 08:00: Sodium 135 L, Potassium 5.2 H, Chloride 110 H, Carbon Dioxide 14 L, Anion Gap 16.2 H, BUN 53 H D, Creatinine 1.00 D, Estimated Creat Clear 43, Estimated GFR 53 L, Est GFR ( Amer) 64 D, Glucose 61 L D, Calcium 7.6 L 07/20/21 08:00: WBC 12.7 H D, RBC 2.51 L, Hgb 7.2 L D, Hct 22.8 L, MCV 91.0, MCH 28.9, MCHC 31.7 L, RDW 16.3, Plt Count 137 L, MPV 11.3 H, Neut % (Auto) 71.8, Lymph % (Auto) 19.9, [place] % (Auto) 7.7, Eos % (Auto) 0.4, Baso % (Auto) 0.2, Neut # (Auto) 9.1 H, Lymph # (Auto) 2.5, [place] # (Auto) 1.0, Eos # (Auto) 0.1, Baso # (Auto) 0.0 I & O for Last 24 hours: Intake & Output 07/17/21 07/18/21 07/19/21 07/20/21 11:59 11:59 11:59 11:59 Intake Total 3840 / 3840 Output Total 625 / 625 Balance 3215 / 3215 Weight 149 lb 0.52 oz - Constitutional no acute distress - *Routine HEENT Exam Head: Present: normocephalic Eye: Present: EOMI, PERRL ENT: Present: mucous membranes dry - *Routine Neck Exam Absent: JVD - *Routine Respiratory Exam Present: decreased breath sounds - *Routine Cardiovascular Exam Present: RRR, murmur - *Routine Abdominal Exam Present: soft - *Routine Extremities Exam Absent: calf tenderness - *Routine Skin Exam Present: intact - *Routine Neurological Exam Present: alert, CN II-XII intact - Routine Psychiatric Exam Present: normal affect Assessment and Plan (1) Diverticulitis Status: Acute Category: Medical Code(s): K57.92 - Diverticulitis of intestine, part unspecified, without perforation or abscess without bleeding (2) Pancreatitis Status: Acute Qualifiers: Chronicity: acute Pancreatitis type: unspecified pancreatitis type Acute pancreatitis complication: unspecified Qualified Code(s): K85.90 - Acute pancreatitis without necrosis or infection, unspecified Category: Medical Code(s): K85.90 - Acute pancreatitis without necrosis or infection, unspecified (3) UTI (urinary tract infection) Status: Acute Qualifiers: Urinary tract infection type: site unspecified Hematuria presence: without hematuria Qualified Code(s): N39.0 - Urinary tract infection,
[2021-07-20 12:37] LABS: Lipase 1584 U/L (23-300)
--- NOTE | 2021-07-20 13:29 | PC.NURSE ---
no new orders for lipase of 6514 1300
--- NOTE | 2021-07-20 15:27 | PC.NURSE ---
Addendum entered by Winifred Toussaint RN 07/20/21 17:01: 1530 bp: 115/54 levophed decreased to 4mcg Original Note: 1400: bp 119/49 levophed decreased from 8mcg to 6mcg
--- NOTE | 2021-07-20 19:00 | PC.WOUNDNOTE ---
wound on outer right ankle
[2021-07-20 19:03] LABS: Adenovirus F 40/41, stool Not Detected (NotDetected); Astrovirus Not Detected (NotDetected); Campylobacter Not Detected (NotDetected); Cryptosporidium Not Detected (NotDetected); Cyclospora Cayetanesis Not Detected (NotDetected); Entamoeba histolytica Not Detected (NotDetected); Enteroaggregative E coli Not Detected (NotDetected); Enteropathogenic E coli Not Detected (NotDetected); Enterotoxigenic E coli Not Detected (NotDetected); Giardia lamblia Not Detected (NotDetected); Norovirus Not Detected (NotDetected); Plesimonas Shigalloides, PCR Not Detected (NotDetected); Rotavirus A Not Detected (NotDetected); Salmonella, PCR Not Detected (NotDetected); Sapovirus Not Detected (NotDetected); Shiga-like toxin E coli Not Detected (NotDetected); Shigella Enterovasive E coli Not Detected (NotDetected); Vibrio Cholerae Not Detected (NotDetected); Vibrio, PCR Not Detected (NotDetected); Yersinia Entercolitica, PCR Not Detected (NotDetected)
[2021-07-20 21:22] LABS: Clostridium Difficile A/B, PCR Detected (NotDetected)
[2021-07-21] VITALS (12 sets, daily range): BP systolic 83–114; BP diastolic 41–69; PULSE 80–97; RESP 16–20; TEMP 36.6–36.9; O2SAT 93–100; BMI 24.0
--- NOTE | 2021-07-21 06:39 | PC.NURSE ---
Pt more alert. Will follow commands. She is alert to self. She remains on Levophed @ 1 mcg/min. VSS. She is on RA with sats in upper 90s. Other VSS. F/C draining to bedside with clear, yellow urine. Pt has had multiple liwuid stools this shift shift. notified of CDIFF. No new orders received. Pt is on IV Flagyl. No other concerns. Will continue to monitor.
[2021-07-21 06:47] LABS: Lymphocytes # 2.2 K/mm3 (0.7-4.5); Platelet Count 139 K/mm3 (142-424)
[2021-07-21 06:49] LABS: Basophils % 0.3 % (0.1-2.0); Eosinophils # 0.1 K/mm3 (0.0-0.4); Eosinophils % 0.5 % (0.1-12.0); Hematocrit 26.5 % (37.0-47.0); Hemoglobin 8.6 g/dL (12.2-16.2); Lymphocytes % 18.2 % (10-50); Mean Corpuscular HGB Conc 32.7 g/dL (31.8-35.4); Mean Corpuscular Hemoglobin 28.4 pg (27.0-31.2); Mean Corpuscular Volume 86.9 fl (81-99); Mean Platelet Volume 10.6 fl (7.4-10.4); Monocytes # 0.9 K/mm3 (0.1-1.0); Monocytes % 7.4 % (1.7-9.3); Neutrophils # 8.7 K/mm3 (1.8-7.8); Neutrophils % 73.5 % (37.0-80.0); Red Blood Count 3.05 M/mm3 (4.20-5.40); Red Cell Distribution Width 17.8 % (11.5-17.5); White Blood Count 11.8 K/mm3 (4.8-10.8)
[2021-07-21 07:32] LABS: Anion Gap 11.3 mEq/L (5-15); Blood Urea Nitrogen 44 mg/dl (7-17); Calcium 8.7 mg/dl (8.4-10.2); Carbon Dioxide 22 mmol/L (22.0-30.0); Chloride 113 mmol/L (98-107); Creatinine Clearance Estimated 42 mL/min (50-200); Estimated Glomerular Filt Rate 68 ml/min (>60); GFR (African American) 82 ML/MIN (>60); Glucose 82 mg/dl (74-100); Potassium 4.3 mmoL/L (3.5-5.1); Sodium 142 mmol/L (136-145)
--- NOTE | 2021-07-21 10:42 | HMH.ACPN2 ---
Internal Medicine - PN: Aislinn *Date: 07/22/21 *Time: 13:28 Interval history: pt with no specific c/o - no pain but positive c diff Exam Vital signs and Labs for Last 24 Hours: Temp Pulse Resp BP Pulse Ox 98.4 F 91 H 20 88/44 L 100 07/21/21 04:00 07/21/21 10:00 07/21/21 10:00 07/21/21 10:00 07/21/21 10:00 Laboratory Results - last 24 hr 07/20/21 08:00: Lipase 1584 H 07/20/21 18:44: Stl Aeromonas (PCR) Not detected, Stl C. cayetanensis PCR Not detected, Stool Rotavirus (PCR) Not detected, Stl Adenov F 40/41 PCR Not detected, Stool Astrovirus (PCR) Not detected, Stool Campylobacter PCR Not detected, Stl C.difficile Tox PCR Detected A, Stool Cryptosporidium PCR Not detected, Stl E.coli Shiga Tox PCR Not detected, Stool E coli O157 PCR Not detected, Stl Enterotoxigenic E PCR Not detected, Stool EPEC (PCR) Not detected, Stool EAEC (PCR) Not detected, Stl E. histolytica PCR Not detected, Stool Giardia Lamblia PCR Not detected, Stool Salmonella PCR Not detected, Stool Sapovirus (PCR) Not detected, Stl P. shigelloides PCR Not detected, Stl Shigella/EIEC PCR Not detected, St Y.enterocolitica PCR Not detected, Stool Vibrio (PCR) Not detected, Stl Vibrio cholerae PCR Not detected, Stl Norovirus GI/GII PCR Not detected 07/21/21 06:11: WBC 11.8 H, RBC 3.05 L, Hgb 8.6 L D, Hct 26.5 L, MCV 86.9, MCH 28.4, MCHC 32.7, RDW 17.8 H, Plt Count 139 L, MPV 10.6 H, Neut % (Auto) 73.5, Lymph % (Auto) 18.2, [place] % (Auto) 7.4, Eos % (Auto) 0.5, Baso % (Auto) 0.3, Neut # (Auto) 8.7 H, Lymph # (Auto) 2.2, [place] # (Auto) 0.9, Eos # (Auto) 0.1, Baso # (Auto) 0.0 07/21/21 06:11: Sodium 142, Potassium 4.3, Chloride 113 H, Carbon Dioxide 22, Anion Gap 11.3, BUN 44 H, Creatinine 0.80, Estimated Creat Clear 42, Estimated GFR 68, Est GFR ( Amer) 82 D, Glucose 82 D, Calcium 8.7 I & O for Last 24 hours: Intake & Output 07/18/21 07/19/21 07/20/21 07/21/21 11:59 11:59 11:59 11:59 Intake Total 3840 / 3840 3243 / 3243 Output Total 625 / 625 3800 / 3800 Balance 3215 / 3215 -557 / -557 Weight 149 lb 0.52 oz 144 lb 9.6 oz Microbiology Reports for the Last 24 Hours: Microbiology 07/19/21 14:22 Urine,Catheterized Urine Culture - Preliminary - Constitutional no acute distress - *Routine HEENT Exam Head: Present: hematoma Eye: Present: EOMI, PERRL ENT: Present: mucous membranes dry - *Routine Neck Exam Absent: JVD - *Routine Respiratory Exam Present: decreased breath sounds - *Routine Cardiovascular Exam Present: RRR, murmur - *Routine Abdominal Exam Present: soft. Absent: rigid - *Routine Extremities Exam Absent: tenderness - *Routine Skin Exam Absent: erythema - *Routine Neurological Exam Absent: oriented X3 - Routine Psychiatric Exam Present: normal affect, cooperative Assessment and Plan (1) Diverticulitis Status: Acute Category: Medical Code(s): K57.92 - Diverticulitis of intestine, part unspecified, without perforation or abscess without bleeding (2) Pancreatitis Status: Acute Qualifiers: Chronicity: acute Pancreatitis type: unspecified pancreatitis type Acute pancreatitis complication: unspecified Qualified Code(s): K85.90 - Acute pancreatitis without necrosis or infection, unspecified Category: Medical Code(s): K85.90 - Acute pancreatitis without necrosis or infection, unspecified (3) UTI (urinary tract infection) Status: Acute Qualifiers: Urinary tract infection type: site unspecified Hematuria presence: without hematuria Qualified Code(s): N39.0 - Urinary tract infection, site not specified Category: Medical Code(s): N39.0 - Urinary tract infection, site not specified (4) Anemia Status: Acute Qualifiers: Anemia type: unspecified type Qualified Code(s): D64.9 - Anemia, unspecified Category: Medical Code(s): D64.9 - Anemia, unspecified (5) CAD (coronary artery disease) Status: Chronic Qualifiers: Coronary Disease-Ass
--- NOTE | 2021-07-21 11:49 | PC.NURSE ---
(1149) family at bedside at this time, states that pt is complaining of pain in knees and hands. no meds ordered. contacting Vika MELARA for medication. (1150) new order tylenol 650mg po q6h prn mod pain.
--- NOTE | 2021-07-21 13:41 | PC.NURSE ---
0810 levophed drip stopped at this time. was infusing at 1mcg at start of shift.
--- NOTE | 2021-07-21 17:52 | PC.NURSE ---
Addendum entered by Winifred Toussaint RN 07/21/21 17:56: pt has remained off of the levophed drip since 0810 this am. will continue to closely monitor pt bp Original Note: family concerned about pt not having routine meds restarted. expressed concern that she is more confused, suspicious and scared in actions. states that this is common for her when she is not on her meds. family also concerned about lack of food intake and interest in eating. speech therapy eval entered r/t coughing with thins (which she has previously been approved for [place] [facility] [place] also dietary consult entered for recommendations on foods, consistency of foods and calorie/nutrients needed. pt has had a few diarrhea bm this shift. meds changed to po vanc to treat c diff.
[2021-07-22] VITALS (11 sets, daily range): BP systolic 101–148; BP diastolic 50–65; PULSE 80–103; RESP 16–18; TEMP 36.6–36.9; O2SAT 90–98; BMI 24.3; BMI 24.2
--- NOTE | 2021-07-22 05:05 | PC.NURSE ---
No acute changes. Pt has remained off levophed gtt. VSS. She is currently on 1L O2 NC while sleeping. O2 sat is currently 95%. Pt has had multiple BMs this shift. Stool has decreased with increments. F/C draining to bedside with clear, yellow urine. Medications administered per mar. No other concerns. Will continue to monitor.
[2021-07-22 05:57] LABS: Basophils # 0.2 K/mm3 (0-0.2); Basophils % 1.6 % (0.1-2.0); Eosinophils # 0.1 K/mm3 (0.0-0.4); Eosinophils % 0.7 % (0.1-12.0); Hemoglobin 8.3 g/dL (12.2-16.2); Lymphocytes # 1.8 K/mm3 (0.7-4.5); Lymphocytes % 16.3 % (10-50); Mean Corpuscular Hemoglobin 28.6 pg (27.0-31.2); Mean Corpuscular Volume 89.4 fl (81-99); Mean Platelet Volume 10.5 fl (7.4-10.4); Monocytes # 0.7 K/mm3 (0.1-1.0); Neutrophils # 8.2 K/mm3 (1.8-7.8); Neutrophils % 75.5 % (37.0-80.0); Platelet Count 141 K/mm3 (142-424); Red Blood Count 2.92 M/mm3 (4.20-5.40); Red Cell Distribution Width 17.9 % (11.5-17.5); White Blood Count 10.9 K/mm3 (4.8-10.8)
[2021-07-22 06:06] LABS: Hematocrit 26.1 % (37.0-47.0)
[2021-07-22 06:18] LABS: Anion Gap 11.9 mEq/L (5-15); Blood Urea Nitrogen 28 mg/dl (7-17); Calcium 8.7 mg/dl (8.4-10.2); Carbon Dioxide 22 mmol/L (22.0-30.0); Chloride 113 mmol/L (98-107); Creatinine Clearance Estimated 42 mL/min (50-200); Estimated Glomerular Filt Rate 79 ml/min (>60); GFR (African American) 96 ML/MIN (>60); Glucose 98 mg/dl (74-100); Potassium 3.9 mmoL/L (3.5-5.1); Sodium 143 mmol/L (136-145)
--- NOTE | 2021-07-22 08:34 | HMH.SLDYSPHA ---
Speech & Language Evaluation Speech/Language Dysphagia Evaluation Start: 07/22/21 08:30 Freq: ONCE Status: Active Protocol: Document 07/22/21 08:30 SHILO (Rec: 07/22/21 08:34 SHILO [id number]) Dysphagia Assess/Goals/Plan Assessment Date of Evaluation: 07/22/21 Evaluation Type Initial Certification Assessment/Problems Dysphagia Does Patient Qualify for Service No Qualify/Failure Comment Patient exhibited no overt signs or symptoms of dysphagia Recommendations PHYSICIAN CERTIFICATION: The specified therapy services are required, authorized, and reviewed every 30 days. Diet Recommendations Mechanical Soft Liquid Type Recommendations Normal/Thin SL Swallow Guidelines Assist w/all meals Plan Pt/Guardian verbally ack understanding Yes: RN and notified of dx/prognosis/goals G -code Required No General Information General Current Food Consistancy Mechanical Soft,[place] Liquids Dentition Edentulous Oxygen Status Nasal Cannula Facial Symmetry Symmetrical Patient Orientation Person Ability to Follow Directions Fair Communication Ability Moderate Impairment Dysphagia:Food Presentation Evaluation Food Type Pureed,Mechanical Soft,Liquid, Pudding Normal/Thin Liquid Response Unable to suck straw Dysphagia Evaluation Summary Ms. Osullivan was given the following consistencies: thins via straw and open cup, pudding, pureed, and mechanical soft. The following signs of dysphagia were noted : inability to suck thins via straw. At this time, it is recommended she be placed on mechanical soft diet with ground meats with gravy/sauce with thin liquids. No straws at this time. Stroke Dysphagia Assessment PHYSICIAN CERTIFICATION: I certify the specified therapy services for Kathy Osullivan are required, authorized, and reviewed every 30 days.
--- NOTE | 2021-07-22 09:08 | SW/DCPLANNER ---
Addendum entered by Magy Gil 07/24/21 08:59: The plan for this patient is to discharge back to [facility] ICF level of care today. Malou watts/ Heber Bhakta has stated that patient will not require a COVID swab prior to discharge. Addendum entered by Magy Gil 07/23/21 10:22: Updated patient information will be faxed to Malou watts/ Heber Bhakta. Discharge date is unknown at this time. Original Note: This patient currently resides at [facility]. I spoke with Malou from [facility] to confirm patient is ICF level of care. I will continue to follow up with Malou until patient is medically stable for discharge. Discharge date is unknown at this time.
--- NOTE | 2021-07-22 09:18 | HMH.ACPN2 ---
Internal Medicine - PN: Subj *Date: 07/22/21 *Time: 08:45 Interval history: pt sitting up in bed, states doing well Exam Vital signs and Labs for Last 24 Hours: Temp Pulse Resp BP Pulse Ox 98.3 F 86 16 121/56 L 97 07/22/21 08:00 07/22/21 06:00 07/22/21 06:00 07/22/21 06:00 07/22/21 06:00 Laboratory Results - last 24 hr 07/19/21 14:22: Urine Color Yellow, Urine Appearance Cloudy, Urine pH 5.0, Ur Specific [place] 1.025, Urine Protein 1+, Urine Glucose (UA) Negative, Urine Ketones Negative, Urine Blood 2+, Urine Nitrate Negative, Urine Bilirubin Negative, Urine Urobilinogen 0.2, Ur Leukocyte Esterase 2+ A, Urine RBC 10-20, Urine WBC 20-50, Ur Squamous Epith Cells None, Urine Bacteria 2+ 07/22/21 05:22: WBC 10.9 H, RBC 2.92 L, Hgb 8.3 L, Hct 26.1 L, MCV 89.4, MCH 28.6, MCHC 32.0, RDW 17.9 H, Plt Count 141 L, MPV 10.5 H, Neut % (Auto) 75.5, Lymph % (Auto) 16.3, [place] % (Auto) 6.0, Eos % (Auto) 0.7, Baso % (Auto) 1.6, Neut # (Auto) 8.2 H, Lymph # (Auto) 1.8, [place] # (Auto) 0.7, Eos # (Auto) 0.1, Baso # (Auto) 0.2 07/22/21 05:22: Sodium 143, Potassium 3.9, Chloride 113 H, Carbon Dioxide 22, Anion Gap 11.9, BUN 28 H D, Creatinine 0.70, Estimated Creat Clear 42, Estimated GFR 79, Est GFR ( Amer) 96, Glucose 98, Calcium 8.7 I & O for Last 24 hours: Intake & Output 07/19/21 07/20/21 07/21/21 07/22/21 11:59 11:59 11:59 11:59 Intake Total 3840 / 3840 3243 / 3243 1704 / 1704 Output Total 625 / 625 3800 / 3800 Balance 3215 / 3215 -557 / -557 1704 / 1704 Weight 149 lb 0.52 oz 144 lb 9.6 oz 145 lb 12.8 oz Microbiology Reports for the Last 24 Hours: Microbiology 07/19/21 14:22 Urine,Catheterized Urine Culture - Preliminary Gram Negative Rods 07/19/21 14:06 Blood Blood Culture - Preliminary NO GROWTH AFTER 48 HOURS 07/19/21 14:06 Blood Blood Culture - Preliminary NO GROWTH AFTER 48 HOURS - Constitutional no acute distress, chronically ill appearing - *Routine HEENT Exam Head: Present: normocephalic Eye: Present: PERRL ENT: Present: mucous membranes moist - *Routine Neck Exam Present: supple. Absent: lymphadenopathy - *Routine Respiratory Exam Present: CTA bilaterally - *Routine Cardiovascular Exam Present: RRR - *Routine Abdominal Exam Present: soft, normoactive bowel sounds. Absent: tenderness - *Routine Extremities Exam Absent: cyanosis, clubbing, edema - *Routine Skin Exam Present: warm. Absent: rash Comments: redness to groin - *Routine Neurological Exam Present: alert Assessment and Plan (1) Diverticulitis Status: Acute Category: Medical Code(s): K57.92 - Diverticulitis of intestine, part unspecified, without perforation or abscess without bleeding (2) Pancreatitis Status: Acute Qualifiers: Chronicity: acute Pancreatitis type: unspecified pancreatitis type Acute pancreatitis complication: unspecified Qualified Code(s): K85.90 - Acute pancreatitis without necrosis or infection, unspecified Category: Medical Code(s): K85.90 - Acute pancreatitis without necrosis or infection, unspecified (3) UTI (urinary tract infection) Status: Acute Qualifiers: Urinary tract infection type: site unspecified Hematuria presence: without hematuria Qualified Code(s): N39.0 - Urinary tract infection, site not specified Category: Medical Code(s): N39.0 - Urinary tract infection, site not specified (4) Anemia Status: Acute Qualifiers: Anemia type: unspecified type Qualified Code(s): D64.9 - Anemia, unspecified Category: Medical Code(s): D64.9 - Anemia, unspecified (5) CAD (coronary artery disease) Status: Chronic Qualifiers: Coronary Disease-Associated Artery/Lesion type: [place] artery [place] vs. transplanted heart: [place] heart Associated angina: without angina Qualified Code(s): I25.10 - Atherosclerotic heart diseas
--- NOTE | 2021-07-22 10:55 | DIET.NUTRFU ---
RD consulted d/t poor po intake. Patient is from [place] and will return when ready. ICU CLERK saw patient this AM, she is a total assist from staff. MSOFT-ground with thin liquids and no straws was recommended. Will also start ensure with meals, to provide additional calories and protein if consumed. She is noted to have a wound to R ankle, will need additional protein to promote healing. Will continue to follow amount consumed.
--- NOTE | 2021-07-22 14:54 | PC.NURSE ---
new iv placed in l upper arm. will leave r wrist iv currently in because patient was noted to be a hard stick. required ultrasound guidance, will ensure new iv will hold up before removing old
[2021-07-23] VITALS: BP 95/48; PULSE 80; PULSE 81; RESP 15; TEMP 36.7; O2SAT 91
[2021-07-23 04:00] VITALS: BP 150/61; PULSE 82; PULSE 90; RESP 20; TEMP 36.3; O2SAT 91
[2021-07-23 05:00] VITALS: BMI 24.9
[2021-07-23 06:32] LABS: Chloride 112 mmol/L (98-107); Potassium 3.8 mmoL/L (3.5-5.1); Sodium 141 mmol/L (136-145)
[2021-07-23 06:35] LABS: Anion Gap 9.8 mEq/L (5-15); Blood Urea Nitrogen 23 mg/dl (7-17); Calcium 8.6 mg/dl (8.4-10.2); Carbon Dioxide 23 mmol/L (22.0-30.0); Creatinine Clearance Estimated 43 mL/min (50-200); Estimated Glomerular Filt Rate 95 ml/min (>60); GFR (African American) 115 ML/MIN (>60); Glucose 113 mg/dl (74-100)
[2021-07-23 06:41] LABS: Basophils % 0.3 % (0.1-2.0); Eosinophils # 0.2 K/mm3 (0.0-0.4); Eosinophils % 1.5 % (0.1-12.0); Hematocrit 24.3 % (37.0-47.0); Hemoglobin 7.9 g/dL (12.2-16.2); Lymphocytes # 2.1 K/mm3 (0.7-4.5); Lymphocytes % 19.5 % (10-50); Mean Corpuscular HGB Conc 32.4 g/dL (31.8-35.4); Mean Corpuscular Hemoglobin 28.6 pg (27.0-31.2); Mean Corpuscular Volume 88.2 fl (81-99); Mean Platelet Volume 10.1 fl (7.4-10.4); Monocytes # 0.7 K/mm3 (0.1-1.0); Monocytes % 6.7 % (1.7-9.3); Neutrophils # 7.6 K/mm3 (1.8-7.8); Platelet Count 170 K/mm3 (142-424); Red Blood Count 2.76 M/mm3 (4.20-5.40); Red Cell Distribution Width 17.7 % (11.5-17.5); White Blood Count 10.6 K/mm3 (4.8-10.8)
[2021-07-23 08:00] VITALS: BP 130/62; PULSE 86; PULSE 92; RESP 17; TEMP 36.4; O2SAT 92
--- NOTE | 2021-07-23 08:39 | HMH.ACPN2 ---
Internal Medicine - PN: Subj *Date: 07/23/21 *Time: 13:00 Interval history: 86-year-old female patient sitting up in bed resting quietly with eyes open. She is pleasantly confused this morning, she denies any chest pain, respiratory distress, abdominal pain, or any other needs at present. Current oxygenation 97% on 1 L per nasal cannula. Exam Vital signs and Labs for Last 24 Hours: Temp Pulse Resp BP Pulse Ox 97.6 F 82 17 140/71 97 07/23/21 12:00 07/23/21 12:00 07/23/21 12:00 07/23/21 12:00 07/23/21 12:00 Laboratory Results - last 24 hr 07/23/21 05:48: WBC 10.6, RBC 2.76 L, Hgb 7.9 L, Hct 24.3 L, MCV 88.2, MCH 28.6, MCHC 32.4, RDW 17.7 H, Plt Count 170, MPV 10.1, Neut % (Auto) 72.0, Lymph % (Auto) 19.5, [place] % (Auto) 6.7, Eos % (Auto) 1.5, Baso % (Auto) 0.3, Neut # (Auto) 7.6, Lymph # (Auto) 2.1, [place] # (Auto) 0.7, Eos # (Auto) 0.2, Baso # (Auto) 0.0 07/23/21 05:48: Sodium 141, Potassium 3.8, Chloride 112 H, Carbon Dioxide 23, Anion Gap 9.8, BUN 23 H, Creatinine 0.60, Estimated Creat Clear 43, Estimated GFR 95, Est GFR ( Amer) 115, Glucose 113 H, Calcium 8.6 I & O for Last 24 hours: Intake & Output 07/20/21 07/21/21 07/22/21 07/23/21 23:59 23:59 23:59 23:59 Intake Total 2795 / 2795 2972 / 2972 320 / 320 Output Total 3225 / 4125 1200 / 1200 900 / 900 Balance -430 / -1330 1772 / 1772 -580 / -580 Weight 149 lb 0.52 oz 144 lb 9.6 oz 145 lb 8.081 oz 149 lb 12.8 oz - Constitutional no acute distress, chronically ill appearing Comments: Slightly confused - *Routine HEENT Exam Head: Present: normocephalic Eye: Present: EOMI ENT: Present: mucous membranes moist - *Routine Neck Exam Present: trachea midline. Absent: tracheal deviation - *Routine Respiratory Exam Present: CTA bilaterally. Absent: accessory muscle use - *Routine Cardiovascular Exam Present: RRR - *Routine Abdominal Exam Present: soft. Absent: tenderness, firm - *Routine Extremities Exam Present: full ROM, pulses intact. Absent: cyanosis, clubbing, edema - *Routine Skin Exam Present: intact, dry. Absent: cyanosis, erythema - *Routine Neurological Exam Present: alert, altered mental status. Absent: motor deficit - Routine Psychiatric Exam Present: unable to assess Assessment and Plan (1) Diverticulitis Status: Acute Category: Medical Code(s): K57.92 - Diverticulitis of intestine, part unspecified, without perforation or abscess without bleeding (2) Pancreatitis Status: Acute Qualifiers: Chronicity: acute Pancreatitis type: unspecified pancreatitis type Acute pancreatitis complication: unspecified Qualified Code(s): K85.90 - Acute pancreatitis without necrosis or infection, unspecified Category: Medical Code(s): K85.90 - Acute pancreatitis without necrosis or infection, unspecified (3) UTI (urinary tract infection) Status: Acute Qualifiers: Urinary tract infection type: site unspecified Hematuria presence: without hematuria Qualified Code(s): N39.0 - Urinary tract infection, site not specified Category: Medical Code(s): N39.0 - Urinary tract infection, site not specified (4) Anemia Status: Acute Qualifiers: Anemia type: unspecified type Qualified Code(s): D64.9 - Anemia, unspecified Category: Medical Code(s): D64.9 - Anemia, unspecified (5) CAD (coronary artery disease) Status: Chronic Qualifiers: Coronary Disease-Associated Artery/Lesion type: [place] artery [place] vs. transplanted heart: [place] heart Associated angina: without angina Qualified Code(s): I25.10 - Atherosclerotic heart disease of [place] coronary artery without angina pectoris Category: Medical Code(s): I25.10 - Atherosclerotic heart disease of [place] coronary artery without angina pectoris (6) COPD (chronic obstructive pulmonary disease) Status: Chronic Qualifiers: COPD type: unspecified COPD Qualified Code(s): J44.9 - Chronic obstructive p
--- NOTE | 2021-07-23 10:18 | DIET.NUTRFU ---
YAYA rounded with provider this AM. She refused breakfast this AM. Ate 50% for dinner. She seems to do better when daughter is present during meals. She was not here yet this morning. Ensure in place, seems to like strawberry best, continues to need some assistance with meals.
[2021-07-23 12:00] VITALS: BP 140/71; PULSE 82; RESP 17; TEMP 36.4; O2SAT 97
--- NOTE | 2021-07-23 15:01 | PC.NURSE ---
AOX1 WITH SOME EPISODES OF CONFUSION. SHE DOES ANSWER MOST QUESTIONS APPROPRIATELY. COMA SCALE SCORE OF 14. HEART RATE HAS BEEN REGULAR. DIMINISHED BREATH SOUNDS BILATERALLY. 1 LNC FOR O2 SUPPORT. ABD SOFT AND NON-TENDER WITH ACTIVE BOWEL SOUNDS. DENIES N/V. INCONTINENT OF BOWEL AND BLADDER THIS SHIFT. FAMILY AT BEDSIDE FOR MOST OF SHIFT. TURN AT FREQUENT INTERVALS. NO NEEDS VOICED AT THIS TIME. SHE DENIES PAIN.
[2021-07-23 16:00] VITALS: BP 141/94; PULSE 78; RESP 16; TEMP 36.6; O2SAT 95
[2021-07-23 20:00] VITALS: BP 133/63; PULSE 75; PULSE 96; RESP 18; TEMP 36.8; O2SAT 90
[2021-07-24] VITALS: BP 117/54; PULSE 95; RESP 16; TEMP 37; O2SAT 90
[2021-07-24 04:00] VITALS: BP 133/57; PULSE 101; RESP 17; TEMP 36.1; O2SAT 96
[2021-07-24 05:00] VITALS: BMI 24.9
[2021-07-24 06:33] LABS: Basophils # 0.1 K/mm3 (0-0.2); Basophils % 0.7 % (0.1-2.0); Eosinophils # 0.2 K/mm3 (0.0-0.4); Eosinophils % 2.1 % (0.1-12.0); Hematocrit 25.1 % (37.0-47.0); Hemoglobin 8.1 g/dL (12.2-16.2); Lymphocytes # 2.1 K/mm3 (0.7-4.5); Lymphocytes % 20.6 % (10-50); Mean Corpuscular HGB Conc 32.4 g/dL (31.8-35.4); Mean Corpuscular Hemoglobin 28.7 pg (27.0-31.2); Mean Corpuscular Volume 88.5 fl (81-99); Mean Platelet Volume 9.9 fl (7.4-10.4); Monocytes # 0.7 K/mm3 (0.1-1.0); Monocytes % 6.5 % (1.7-9.3); Neutrophils # 7.2 K/mm3 (1.8-7.8); Neutrophils % 70.1 % (37.0-80.0); Platelet Count 191 K/mm3 (142-424); Red Blood Count 2.84 M/mm3 (4.20-5.40); Red Cell Distribution Width 17.8 % (11.5-17.5); White Blood Count 10.3 K/mm3 (4.8-10.8)
--- NOTE | 2021-07-24 06:37 | PC.NURSE ---
Pt slept all shift. Was easily awoken for medications. Pt remains confused at all times. Pt voiced 0 pain. Pt 02 sat did drop with movement in bed. 02 increased to 2 L. Pt now satting in the low 90's.
[2021-07-24 06:41] LABS: Anion Gap 7.7 mEq/L (5-15); Blood Urea Nitrogen 20 mg/dl (7-17); Calcium 8.2 mg/dl (8.4-10.2); Carbon Dioxide 27 mmol/L (22.0-30.0); Chloride 110 mmol/L (98-107); Creatinine Clearance Estimated 43 mL/min (50-200); Estimated Glomerular Filt Rate 117 ml/min (>60); GFR (African American) 142 ML/MIN (>60); Glucose 110 mg/dl (74-100); Potassium 3.7 mmoL/L (3.5-5.1); Sodium 141 mmol/L (136-145)
[2021-07-24 08:00] VITALS: BP 129/83; PULSE 74; RESP 17; TEMP 37.1; O2SAT 96
--- NOTE | 2021-07-24 10:24 | HMH.DCSUM ---
General - General Admission date:: 07/19/21 Discharge date: 07/24/21 HPI HPI: this elderly pt was sent from [facility] [place] with altered mental status -86-year-old female with history of respiratory failure, CAD, left bundle branch block, CKD presenting to the ED with lethargy, poor p.o. intake, bradycardia. Per EMS report from retirement patient is typically more interactive at baseline than she currently is, she did not eat her breakfast this morning. When they arrived she was bradycardic and in the 40s however normotensive, afebrile. She is moving all 4 extremities, she appears sleepy and responds to strong verbal stimuli as well as noxious stimuli. She does not have any abdominal pain. Further history of present illness unable to be obtained secondary to patient's mental status. 86-year-old female with history of respiratory failure, CKD, CAD, left bundle branch block presenting to the ED with lethargy, bradycardia peer differential diagnoses include sepsis, urinary tract infection, ACS, CHERRY, deconditioning, intracranial hemorrhage. Given this work-up will include CT head, chest x-ray, EKG, troponins, CBC, CMP, VBG, blood cultures, urine cultures. Patient is hypotensive, she was treated with 30 cc/kg boluses of lactated Ringer's. Started empiric antibiotics for sepsis given her hypothermia and hypotension. Her lactate is normal, she does not have a leukocytosis. Her lipase extremely elevated at 5000, LFTs are mildly elevated however total bilirubin normal. Obtained a CT head that did not show acute intracranial hemorrhage, would like to obtain a contrasted CT scan however given her kidney function we are unable to do this. We did perform right upper quadrant ultrasound and then a noncontrast CT scan which shows diverticulitis, extrahepatic biliary dilation, pancreatic edema. Spoke with on-call surgeon who recommended transfer to tertiary facility if patient's family would like aggressive treatment or surgical consultation. After speaking with them they would prefer for continuation of antibiotics, norepinephrine for her hypotension. Will have patient [facility] to [facility] for medical management, prognosis guarded. Hospital Course Hospital Course: Abnormal lab results 07/24/21 07/24/21 Range/Units 06:14 06:14 RBC 2.84 L (4.20-5.40) M/mm3 Hgb 8.1 L (12.2-16.2) g/dL Hct 25.1 L (37.0-47.0) % RDW 17.8 H (11.5-17.5) % Chloride 110 H (98-107) mmol/L BUN 20 H (7-17) mg/dl Creatinine 0.50 L (0.52-1.04) mg/dl Glucose 110 H (74-100) mg/dl Calcium 8.2 L (8.4-10.2) mg/dl Abnormal Lab Results 07/24/21 06:14: RBC 2.84 L, Hgb 8.1 L, Hct 25.1 L, RDW 17.8 H 07/24/21 06:14: Chloride 110 H, BUN 20 H, Creatinine 0.50 L, Glucose 110 H, Calcium 8.2 L Microbiology 07/19/21 14:22 Urine,Catheterized Urine Culture - Preliminary Gram Negative Rods Laverna ascorbata 07/19/21 14:06 Blood Blood Culture - Preliminary NO GROWTH AFTER 48 HOURS 07/19/21 14:06 Blood Blood Culture - Preliminary NO GROWTH AFTER 48 HOURS Discharge Plan (1) Diverticulitis r/t cdiff- contiunue po vanc for 6 days (2) Pancreatitis-improved symptoms (3) UTI (urinary tract infection)-r/t klvyvera ascorbata- completed a course of cefipime (4) Anemia- stable, check cbc on thursday (5) CAD (coronary artery disease)-continue all home meds (6) COPD (chronic obstructive pulmonary disease)- stable, inhalers from home (7) Thrombocytopenia- plts improved to 191, will monitor (8) CHERRY (acute kidney injury)- stable, will monitor, check cmp on thursday (9) Elevated LFTs-stable, will monitor, check cmp on thursday (10) Left bundle branch block (LBBB)- follow up with cardiology as out pt Objective Vital signs: Temp Pulse Resp BP Pulse Ox 98.7 F 74 17 129/83 96
--- NOTE | 2021-07-24 14:22 | PC.NURSE ---
Called report to Karen at [facility] @ [phone]
--- NOTE | 2021-07-25 16:02 | CARE MANAGER ---
Contacted [facility] who states she is doing well. Denies needing anything or having any questions.
== END 2021-07-24 12:30 | DRG 391 ==
LOC: ER 15:16 → 2ND 18:58
PROVIDERS: Nurse Practitioner Family; Admitting Provider Emergency Medicine; Emergency Provider Emergency Medicine; PCP Emergency Medicine; Visit Provider Emergency Medicine
DX: K57.32 Diverticulitis of large intestine without perforation or abscess without bleeding; K85.90 Acute pancreatitis without necrosis or infection, unspecified; N39.0 Urinary tract infection, site not specified; N17.9 Acute kidney failure, unspecified; K57.92 Diverticulitis of intestine, part unspecified, without perforation or abscess without bleeding; Z20.822 Contact with and (suspected) exposure to COVID-19; Z79.02 Long term (current) use of antithrombotics/antiplatelets; Z79.899 Other long term (current) drug therapy; I11.0 Hypertensive heart disease with heart failure; I50.9 Heart failure, unspecified; J44.9 Chronic obstructive pulmonary disease, unspecified; I25.10 Atherosclerotic heart disease of native coronary artery without angina pectoris; N18.9 Chronic kidney disease, unspecified; I44.7 Left bundle-branch block, unspecified; D69.6 Thrombocytopenia, unspecified; M19.90 Unspecified osteoarthritis, unspecified site; Z87.891 Personal history of nicotine dependence; R94.31 Abnormal electrocardiogram [ECG] [EKG]; D64.9 Anemia, unspecified; B96.89 Other specified bacterial agents as the cause of diseases classified elsewhere; R68.0 Hypothermia, not associated with low environmental temperature
CPT/HCPCS: 36415; 70450; 71045; 74176; 76705; 80048; 80053; 81001; 82803; 83605; 83690; 83880; 84484; 85025; 87040; 87086; 87088; 87186; 87506; 92610; 93005; 94760; 96375; 99285; C9803; J1335; J3370; U0003; U0005

== ENCOUNTER → 2021-08-15 11:59 | Outpatient (CLI) | payer MEDICARE, MEDICAID, SELFPAY | PROVIDERS: PCP Emergency Medicine; Visit Provider Internal Medicine Pulmonary Disease | DX: R06.09 Other forms of dyspnea (principal) | CPT/HCPCS: 94060 ==

== ENCOUNTER 2022-11-09 04:52 | Emergency (ER) | payer MEDICARE, MEDICAID, SELFPAY ==
[2022-11-09] VITALS (8 sets, daily range): BP systolic 113–150; BP diastolic 55–90; PULSE 69–84; RESP 16–19; TEMP 36.6; O2SAT 97–99; BMI 31.1
--- NOTE | 2022-11-09 05:10 | PC.NURSE ---
large hematoma noted to left elbow complains of pain with palpation of area but can extend and rotate elbow, bilat lower legs different stages of ecchymosis noted, moves lower extremities without pain or difficulty. Pt denies hitting her head or LOC
--- NOTE | 2022-11-09 05:17 | XR_ITS ---
PROCEDURE INFORMATION: Exam: XR Left Elbow Exam date and time: 11/09/2022 5:33 AM Age: 87 years old Clinical indication: Injury or trauma; Fall; Additional info: Fall bruising TECHNIQUE: Imaging protocol: Radiologic exam of the left elbow. Views: 1 or 2 views. COMPARISON: No relevant prior studies available. FINDINGS: Bones/joints: Osteoarthritic change. Soft tissues: Normal. IMPRESSION: No acute findings.
--- NOTE | 2022-11-09 05:17 | XR_ITS ---
PROCEDURE INFORMATION: Exam: XR Left Forearm Exam date and time: 11/09/2022 5:33 AM Age: 87 years old Clinical indication: Injury or trauma; Fall; Additional info: Fall bruising TECHNIQUE: Imaging protocol: Radiologic exam of the left forearm. Views: 2 views. COMPARISON: No relevant prior studies available. FINDINGS: Bones/joints: No acute fracture. Osteoarthritic change of the elbow. Diffuse osteopenia. Soft tissues: Normal. IMPRESSION: No acute fracture noted.
--- NOTE | 2022-11-09 05:17 | XR_ITS ---
PROCEDURE INFORMATION: Exam: XR Left Tibia and Fibula Exam date and time: 11/09/2022 5:33 AM Age: 87 years old Clinical indication: Injury or trauma; Fall; Additional info: Fall bruising TECHNIQUE: Imaging protocol: Radiologic exam of the left tibia and fibula. Views: 2 views. COMPARISON: No relevant prior studies available. FINDINGS: Bones/joints: Prior knee arthroplasty. Diffuse osteopenia. Soft tissues: Normal. IMPRESSION: No acute process
--- NOTE | 2022-11-09 05:17 | XR_ITS ---
PROCEDURE INFORMATION: Exam: XR Right Tibia and Fibula Exam date and time: 11/09/2022 5:33 AM Age: 87 years old Clinical indication: Injury or trauma; Fall; Additional info: Fall bruising TECHNIQUE: Imaging protocol: Radiologic exam of the right tibia and fibula. Views: 2 views. COMPARISON: No relevant prior studies available. FINDINGS: Bones/joints: Diffuse osteopenia. No fracture or dislocation noted. Soft tissues: Normal. IMPRESSION: Diffuse osteopenia. No fracture or dislocation noted.
--- NOTE | 2022-11-09 05:17 | XR_ITS ---
PROCEDURE INFORMATION: Exam: XR Right Ankle Exam date and time: 11/09/2022 5:33 AM Age: 87 years old Clinical indication: Injury or trauma; Fall; Additional info: Fall bruising TECHNIQUE: Imaging protocol: Radiologic exam of the right ankle. Views: 3 or more views. COMPARISON: No relevant prior studies available. FINDINGS: Bones/joints: Diffusely osteopenic. Soft tissues: Normal. IMPRESSION: No acute findings.
--- NOTE | 2022-11-09 05:17 | XR_ITS ---
PROCEDURE INFORMATION: Exam: XR Right Knee Exam date and time: 11/09/2022 5:33 AM Age: 87 years old Clinical indication: Injury or trauma; Fall; Additional info: Fall bruising TECHNIQUE: Imaging protocol: Radiologic exam of the right knee. Views: 3 views. COMPARISON: No relevant prior studies available. FINDINGS: Bones/joints: Severe osteoarthritic change. There is narrowing of the mediolateral compartments with a [id number] configuration. Diffuse marginal osteophytes. Osteopenia. Soft tissues: Normal. IMPRESSION: No acute process. Extensive osteoarthritic change.
--- NOTE | 2022-11-09 05:19 | CT_ITS ---
PROCEDURE INFORMATION: Exam: CT Head Without Contrast Exam date and time: 11/09/2022 5:35 AM Age: 87 years old Clinical indication: Injury or trauma; Fall; Additional info: Fall on thinners TECHNIQUE: Imaging protocol: Computed tomography of the head without contrast. Radiation optimization: All CT scans at this facility use at least one of these dose optimization techniques: automated exposure control; mA and/or kV adjustment per patient size (includes targeted exams where dose is matched to clinical indication); or iterative reconstruction. REPORTING DATA: Count of CT and Cardiac NM exams in prior 12 months: This patient has received 0 known CTs and 0 known cardiac nuclear medicine studies in the 12 months prior to the current study. COMPARISON: CT HEAD/BRAIN WO CON 07/19/2021 2:47 PM FINDINGS: Brain: There is diffuse prominence of the cerebral sulci, cisterns, and ventricles consistent with atrophy. No intra or extra-axial fluid collections are noted. No mass or mass effect is seen. Periventricular white matter hypoattenuation is seen consistent with small vessel chronic ischemic changes. Cerebral ventricles: No ventriculomegaly. Paranasal sinuses: Visualized sinuses are unremarkable. No fluid levels. Mastoid air cells: Visualized mastoid air cells are well aerated. Bones/joints: Unremarkable. No acute fracture. Soft tissues: Unremarkable. IMPRESSION: No acute process noted.
--- NOTE | 2022-11-09 05:47 | HMH.EDGENADL ---
Discharge Plan Disposition Patient Disposition: Home, Self-Care Condition: Good Prescriptions Prescriptions: No Action budesonide 0.5 mg/2 mL suspension for nebulization 0.5 mg IH Q12H Qty: 180 3RF formoterol fumarate [Perforomist] 20 mcg/2 mL solution for nebulization 2 ml IH BID 90 Days Qty: 180 3RF ipratropium-albuterol 0.5 mg-3 mg(2.5 mg base)/3 mL solution for nebulization 3 ml INHALATION QID PRN (Reason: shortness of breath or wheezing) 90 Days Qty: 270 3RF acetaminophen [Tylenol Extra Strength] 500 mg tablet 1,000 mg PO Q4HP PRN (Reason: Mild Pain,Fever,Headache) bisacodyl 10 mg suppository 10 mg RC DAILYP PRN (Reason: Constipation) ondansetron HCl [Zofran] 4 mg tablet 4 mg PO Q6HP PRN (Reason: Nausea And Vomiting) atorvastatin [Lipitor] 40 mg tablet 40 mg PO HS docusate sodium 250 mg capsule 250 mg PO DAILY lisinopril 2.5 mg tablet 2.5 mg PO DAILY melatonin 3 mg capsule 3 mg PO 1700 ropinirole [Requip XL] 2 mg tablet extended release 24 hr 2 mg PO BID diazepam 5 mg tablet 5 mg PO BID hydrocodone-acetaminophen 5-325 mg tablet 1 tab PO BID Qty: 60 0RF gabapentin 100 mg capsule 100 mg PO BID Qty: 60 5RF metoprolol tartrate 25 MG tablet 12.5 mg PO BID furosemide 40 MG tablet 40 mg PO DAILY spironolactone 25 MG tablet 25 mg PO DAILY formoterol fumarate 20 MCG/2 ML solution for nebulization 20 mcg IH BID clopidogrel 75 MG tablet 75 mg PO DAILY aspirin 81 MG tablet,chewable 81 mg PO DAILY sertraline 50 MG tablet 50 mg PO DAILY vancomycin 500 MG recon soln 125 mg PO QID 6 Days Qty: 24 0RF Rx Instructions: for 6 days Referrals Follow up/Referrals: Johnny Marion MD [Primary Care Provider] - See instructions Activity Restrictions/Add. Instructions Additional Instructions/Restrictions: You were evaluated in the emergency department today for injuries after fall. No injuries were identified. Continue taking all home medications as previously prescribed. Make an appointment with your primary care physician for reevaluation in 2 days. Return to the emergency department with new or worsening symptoms. Clinical Impressions Clinical Impression: Arthralgia of elbow, left Fall Qualifiers: Encounter type: initial encounter Qualified Code(s): W19.XXXA - Unspecified fall, initial encounter Discharge ED Provider: Cassandra Barton General Adult HPI <Caesar Castillo MD - Last Filed: 11/09/22 07:02> General Chief complaint: Fall Stated complaint: fall Time Seen by Provider: 11/09/22 04:54 Mode of Arrival: EMS Source of Information: Patient and Medical Record Limitations: Physical Limitations Description of Symptoms (Recalled from ER Triage Doc. by RN): per residential staff pt was found in floor in her room, pt reports she was getting up to walk and fell. Complains of left elbow pain History of Present Illness HPI narrative: This 87-year-old pleasantly demented female who is normally nonambulatory secondary to rheumatoid arthritis presents from residential after fall from bed. She was found approximately 10 feet from her bed. Unwitnessed fall. Believed to have hit her head. Patient was complaining of left elbow pain. Report from EMS is that patient has not had any recent illness and there were no other concerns from the residential aside from possible injury to left arm from the fall. Patient is pleasantly demented but states she has left elbow pain. EMS reports patient does take Plavix and aspirin. Unknown loss of consciousness. Patient is difficult to obtain review of systems or history secondary to dementia. Related Data Home Medications Medication Instructions Recorded Confirmed acetaminophen 500 mg tablet 1,000 mg PO Q4HP PRN Mild 12/11/19 04/15/22 (Tylenol Extra Strength) Pain,Fever,Headache atorvastatin 40 mg tablet (Lipitor) 40 mg PO HS Cholesterol 0
--- NOTE | 2022-11-09 06:27 | PC.NURSE ---
Pt provided with another warm blanket. Call light remains within reach.
--- NOTE | 2022-11-09 06:49 | PC.NURSE ---
Pt continues to take her pulse ox off. Call light within reach at this time and no needs voiced.
--- NOTE | 2022-11-09 08:28 | PC.NURSE ---
called report to nova at [facility] [place]. pt being transported back via EMS.
== END 2022-11-09 08:32 | disposition home or self-care (01) ==
PROVIDERS: Emergency Provider Emergency Medicine; PCP Emergency Medicine
DX: M25.522 Pain in left elbow (principal); F03.90 Unspecified dementia, unspecified severity, without behavioral disturbance, psychotic disturbance, mood disturbance, and anxiety; M06.9 Rheumatoid arthritis, unspecified; W06.XXXA Fall from bed, initial encounter; J44.9 Chronic obstructive pulmonary disease, unspecified; F41.9 Anxiety disorder, unspecified; K21.9 Gastro-esophageal reflux disease without esophagitis; I11.0 Hypertensive heart disease with heart failure; I50.9 Heart failure, unspecified; E78.5 Hyperlipidemia, unspecified; I25.2 Old myocardial infarction; F32.4 Major depressive disorder, single episode, in partial remission
CPT/HCPCS: 70450; 73070; 73090; 73562; 73590; 73610; 99285

== ENCOUNTER 2023-01-13 07:27 | Day surgery (SDC) | payer MEDICARE, MEDICAID, SELFPAY ==
[2023-01-13] VITALS (8 sets, daily range): BP systolic 117–138; BP diastolic 71–99; PULSE 57–97; RESP 16–20; TEMP 36.1–36.9; O2SAT 90–97
== END 2023-01-13 10:35 | disposition home or self-care (01) ==
PROVIDERS: PCP Emergency Medicine; Visit Provider Ophthalmology
PROC: (CPT 66984; principal; 2023-01-13 10:00)
DX: H25.812 Combined forms of age-related cataract, left eye (principal)
CPT/HCPCS: 66984; V2632

== ENCOUNTER 2023-02-03 07:33 | Day surgery (SDC) | payer MEDICARE, MEDICAID, SELFPAY ==
[2023-02-03] VITALS (7 sets, daily range): BP systolic 115–143; BP diastolic 59–79; PULSE 64–79; RESP 16–19; TEMP 36.4–37; O2SAT 90–93; BMI 28.3
== END 2023-02-03 09:54 | disposition home or self-care (01) ==
PROVIDERS: PCP Emergency Medicine; Visit Provider Ophthalmology
PROC: (CPT 66984; principal; 2023-02-03 10:00)
DX: H25.811 Combined forms of age-related cataract, right eye (principal)
CPT/HCPCS: 66984; V2632

== ENCOUNTER 2023-09-19 14:04 | Outpatient (CLI) | payer MEDICARE, MEDICAID, SELFPAY ==
[2023-09-19 14:27] LABS: Basophils % 0.2 % (0.1-2.0); Eosinophils # 0.1 K/mm3 (0.0-0.4); Eosinophils % 0.4 % (0.1-12.0); Hematocrit 38.4 % (37.0-47.0); Hemoglobin 11.8 g/dL (12.2-16.2); Lymphocytes # 1.6 K/mm3 (0.7-4.5); Lymphocytes % 11.8 % (10-50); Mean Corpuscular HGB Conc 30.8 g/dL (31.8-35.4); Mean Corpuscular Hemoglobin 28.1 pg (27.0-31.2); Mean Corpuscular Volume 91.1 fl (81-99); Mean Platelet Volume 8.4 fl (7.4-10.4); Monocytes # 0.3 K/mm3 (0.1-1.0); Monocytes % 1.9 % (1.7-9.3); Neutrophils # 11.5 K/mm3 (1.8-7.8); Neutrophils % 85.8 % (37.0-80.0); Platelet Count 269 K/mm3 (142-424); Red Blood Count 4.21 M/mm3 (4.20-5.40); Red Cell Distribution Width 15.4 % (11.5-17.5); White Blood Count 13.4 K/mm3 (4.8-10.8)
[2023-09-19 14:44] LABS: INR 0.91 (0.9-1.1); Prothrombin Time 10.3 seconds (10.1-12.5)
[2023-09-19 15:18] LABS: MANUAL DIFFERENTIAL MANUAL DIFFERENTIAL (MANUAL DIFF)
[2023-09-19 20:02] LABS: Lymphocytes % 15 % (10-50); Monocytes % 2 % (2-9); Neutrophils % 83 % (42-76); Platelet Estimate Normal; RBC Morphology Normal; Total Cells Counted 100
== END 2023-09-19 23:59 | disposition home or self-care (01) ==
LOC: LAB.DROPOF 14:05
PROVIDERS: Family Medicine; PCP Internal Medicine; Visit Provider Internal Medicine
DX: I50.9 Heart failure, unspecified (principal); I11.0 Hypertensive heart disease with heart failure; Z79.899 Other long term (current) drug therapy
CPT/HCPCS: 85007; 85025; 85027; 85610

== ENCOUNTER 2023-11-06 16:34 | Outpatient (CLI) | payer MEDICARE, MEDICAID, SELFPAY ==
[2023-11-06 17:03] LABS: Microscopic, Urine URINE MICROSCOPIC (MICROSCOPIC)
[2023-11-06 18:27] LABS: Bilirubin,Urine Negative (Negative); Blood, Urine 2+ (Negative); Glucose,Urine (UA) Negative (Negative); Ketones,Urine Negative (Negative); Leukocyte Esterase,Urine 2+ (Negative); Nitrate,Urine POSITIVE (Negative); Protein,Urine Negative (Negative); Urobilinogen,Urine 0.2 EU/dl (0.2)
[2023-11-06 18:39] LABS: Color,Urine Dark Yellow (Yellow)
[2023-11-06 18:40] LABS: Appearance,Urine Cloudy (Clear)
[2023-11-06 19:23] LABS: Amorphous Sediment,Urine 4+ /lpf
[2023-11-06 19:25] LABS: Bacteria,Urine 3+ /lpf
== END 2023-11-06 23:59 | disposition home or self-care (01) ==
LOC: LAB.DROPOF 16:35
PROVIDERS: PCP Internal Medicine; Visit Provider Family Medicine
DX: R10.819 Abdominal tenderness, unspecified site (principal); R10.9 Unspecified abdominal pain; B96.4 Proteus (mirabilis) (morganii) as the cause of diseases classified elsewhere; B96.1 Klebsiella pneumoniae [K. pneumoniae] as the cause of diseases classified elsewhere; B96.20 Unspecified Escherichia coli [E. coli] as the cause of diseases classified elsewhere
CPT/HCPCS: 81001; 87086; 87088; 87186

== ENCOUNTER 2024-01-10 16:06 | Inpatient (IN) | payer MEDICARE, MEDICAID, SELFPAY ==
[2024-01-10] VITALS (13 sets, daily range): BP systolic 81–119; BP diastolic 39–81; PULSE 71–88; RESP 18–20; TEMP 36.7–37.2; O2SAT 92–100; BMI 24.7
--- NOTE | 2024-01-10 16:15 | PC.NURSE ---
DAUGHTER UPDATED AT THIS TIME
--- NOTE | 2024-01-10 16:17 | ECG_ITS ---
APPROVED REPORT Exam: Resting ECG HR:83 bpm ECG Measurements Heart Rate 83 AXES IA 146 P 38 QRSd 135 QRS -37 QT 443 T 114 QTc 483 Conclusion SINUS RHYTHM WITH SINUS ARRHYTHMIA LEFT AXIS DEVIATION [QRS AXIS < -30] LEFT BUNDLE BRANCH BLOCK [120+ ms QRS DURATION, 80+ ms Q/S IN V1/V2, 85+ ms R IN I/aVL/V5/V6] ABNORMAL ECG UNCONFIRMED REPORT Electronically signed by : EVELYNE MCCALL, 01/11/2024 06:54:44
--- NOTE | 2024-01-10 16:27 | ED_ITS ---
Discharge Plan Disposition Patient Disposition: Admitted Chief Complaint: Nausea/Vomiting/Diarrhea Prescriptions Prescriptions: No Action acetaminophen [Tylenol Extra Strength] 500 mg tablet 1,000 mg PO Q4HP PRN (Reason: Mild Pain,Fever,Headache) bisacodyl 10 mg suppository 10 mg RC DAILYP PRN (Reason: Constipation) ondansetron HCl [Zofran] 4 mg tablet 4 mg PO Q6HP PRN (Reason: Nausea And Vomiting) docusate sodium 250 mg capsule 250 mg PO DAILY melatonin 3 mg capsule 3 mg PO 1700 ropinirole [Requip XL] 2 mg tablet extended release 24 hr 2 mg PO BID guaifenesin 100 mg/5 mL liquid 200 mg PO QIDP PRN (Reason: Cough) Deep Sea Nasal 0.65 % aerosol,spray 1 spray intranasal BID gabapentin 100 mg capsule 100 mg PO BID Qty: 60 5RF hydrocodone-acetaminophen 5-325 mg tablet 1 tab PO BID Qty: 60 0RF furosemide 40 MG tablet 40 mg PO DAILY spironolactone 25 MG tablet 25 mg PO DAILY clopidogrel 75 MG tablet 75 mg PO DAILY aspirin 81 MG tablet,chewable 81 mg PO DAILY sertraline 50 MG tablet 50 mg PO DAILY prednisone 10 mg Tablet 10 mg PO DAILY benzonatate [Tessalon Perles] 100 mg Capsule 100 mg PO TID PRN (Reason: Cough) Referrals Follow up/Referrals: Robin Hay MD [Primary Care Provider] - See instructions Clinical Impressions Clinical Impression: Choledocholithiasis, Acute hepatitis, Vomiting Instructions Patient Instructions: DI for Diarrhea and Traveler's Diarrhea -- Adult, DI for Diarrhea and Traveler's Diarrhea -- Child, DI for Nausea -- Adult, DI for Nausea -- Child Print Language Print Language: Emirati Discharge ED Provider: Dar Crook General Adult HPI General Chief complaint: Nausea/Vomiting/Diarrhea Stated complaint: nausea/vomiting Time Seen by Provider: 01/10/24 16:09 Mode of Arrival: EMS Source of Information: EMS Limitations: No Limitations Description of Symptoms (Recalled from ER Triage Doc. by RN): EMS states that the patient threw up twice when she was rolled over. Patient with no complaints at this time. skilled nursing states they gave zofran and tylenol but she threw it up. History of Present Illness HPI narrative: Please note that above description of symptoms, in this electronic medical record under categorization of recalled from ER triage doctor by RN are reflective of an initial nursing assessment, however, is not reflective of my full history and physical exam that was personally taken and clarified. Consequentially, this preceding description of symptoms, which may include the patient's categorized chief complaint in the EMR, do not reflect my personal clinical impression, and the ultimate description of history of present illness and patient stated complaints should be deferred to this section of the note. Unless stated otherwise or congruent with this section of the note, additional signs, symptoms, or incongruence should be interpreted as inaccurate with my clinical impression. Related Data Home Medications ?Medication ?Instructions ?Recorded ?Confirmed acetaminophen 500 mg tablet 1,000 mg PO Q4HP PRN Mild 12/11/19 12/28/23 (Tylenol Extra Strength) Pain,Fever,Headache bisacodyl 10 mg rectal suppository 10 mg AK DAILYP PRN Constipation 12/11/19 12/28/23 docusate sodium 250 mg capsule 250 mg PO DAILY constipation 12/11/19 12/28/23 melatonin 3 mg capsule 3 mg PO 1700 Insomnia 12/11/19 12/28/23 ondansetron HCl 4 mg tablet 4 mg PO Q6HP PRN Nausea And 12/11/19 12/28/23 (Zofran) Vomiting ropinirole 2 mg tablet,extended 2 mg PO BID Restless leg 12/11/19 12/28/23 release 24 hr (Requip XL) furosemide 40 mg tablet 40 mg PO DAILY Fluid 04/18/21 12/28/23 spironolactone 25 mg tablet 25 mg PO DAILY Fluid 04/18/21 12/28/23 aspirin 81 mg chewable tablet 81 mg PO DAILY HEART HEALTH 07/20/21 12/28/23 clopidogrel 75 mg tablet 75 mg PO DAILY 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 INHIBITOR 07/20/21 12/28/23 sertraline 50 mg tablet 50 mg PO DAILY MOOD 07/20/21 12/28/23 benzonatate 100 mg capsule 100 mg PO TID PRN Cough 01/13/23 12/28/23 prednisone 10 mg tablet 10 mg PO DAILY inflammation 01/13/23 12/28/23 guaifenesin 100 mg/5 mL oral liquid 200 mg PO QIDP PRN Cough 02/27/23 12/28/23 sodium chloride 0.65 % nasal spray 1 spray intranasal BID 02/27/23 12/28/23 aerosol (Deep Sea Nasal) Previous Rx's ?Medication ?Instructions ?Recorded gabapentin 100 mg capsule 100 mg PO BID Pain #60 caps 10/06/23 hydrocodone 5 mg-acetaminophen 325 1 tab PO BID Pain #60 tabs 01/02/24 mg tablet Allergies Allergy/AdvReac Type Severity Reaction Status Date / Time alendronate sodium Allergy Unknown Verified 12/28/23 21: [From Fosamax] NSAIDS (Non-Steroidal Allergy Unknown Verified 12/28/23 21: Anti-Inflamma Penicillins Allergy Unknown Verified 12/28/23 21: [facility] Disclaimer: The information contained in this section may have been updated after the patient was seen, as this information can be updated by other users. Medical History UTI (urinary tract infection) recent E. coli infection sensitive to and treated with Nitrofurantoin--now asymptomatic Arthralgia of elbow, left Fall Elevated LFTs CHERRY (acute kidney injury) Thrombocytopenia Anemia Pancreatitis Diverticulitis Renal insufficiency Bacterial infection due to Proteus mirabilis Respiratory failure with hypercapnia Obesity (BMI 30-39.9) Elevated troponin IVCD (intraventricular conduction defect) Severe sepsis with acute organ dysfunction Cough with hemoptysis COPD with acute exacerbation Respiratory failure with hypercapnia Chest pain Anemia Elevated troponin Healthcare-associated pneumonia Vomiting Scalp laceration Fall History of NV (myocardial infarction) Age-related physical debility Malaise Overactive bladder Rheumatic arteritis Gastroesophageal reflux disease Heart failure stable Chronic insomnia Anxiety Major depression in partial remission Dementia Hyperlipidemia Hypertension well-controlled Surgical History Surgical history unknown Family History Other No significant family history Social History Smoking Status: Former smoker tobacco type: cigarettes alcohol intake: never substance use type: denies use and other current occupational status: retired Travel in the last 8 weeks: None housing: longterm Other Medical History Have you received the Flu Vaccine for this season: No Have you received the Pneumonia Vaccine: Yes ROS Obtained: Yes All systems reviewed & no additional complaints except as documented Physical Exam General General appearance: alert and in no apparent distress Head Head exam: atraumatic and normocephalic Eye Eye exam: Present normal appearance, PERRL and EOMI ENT ENT exam: Present mucous membranes dry Neck Neck exam: Present normal inspection, full ROM and trachea midline Respiratory Respiratory exam: Present normal lung sounds bilaterally; Absent respiratory distress, wheezes, stridor, accessory muscle use or prolonged expiratory phase Cardiovascular Cardiovascular exam: Present regular rate, normal rhythm and other (Pulses equal symmetric in upper and lower extremities) Abdominal Exam Abdominal exam: Present soft; Absent distention, tenderness, guarding, rebound, rigidity or pulsatile mass Extremities Exam Extremities exam: Absent edema Neurological Exam Neurological exam: Present alert and CN II-XII intact; Absent motor sensory deficit Skin Skin exam: Present warm and dry; Absent diaphoresis or erythema Medical Decision Making Medical Records Medical records reviewed: Yes I reviewed the patient's medical records. Screening: Per USPSTF and CDC recommendations, given the prevalence of disease in our region, it is our hospital?s policy to screen for HIV and viral Hepatitis for all patients aged 18 and over and those with ongoing risk factors. Leonel Inquiry Pt receiving controlled substance: No Leonel was queried for this patient: No Vital Signs: 01/10/24 16:06 01/10/24 16:26 01/10/24 16:30 Temperature 99.0 F Temperature Source Oral Pulse Rate 79 86 Pulse Rate [Radial] 77 Respiratory Rate 20 Blood Pressure 81/39 L 88/39 L Blood Pressure [Right Arm] 98/81 L Blood Pressure Mean 53 44 Blood Pressure Mean [Right Arm] 86 Blood Pressure Source [Right Arm] Automatic Cuff Blood Pressure Position [Right Arm] Sitting 02 Sat by Pulse Oximetry 95 97 97 Oxygen Delivery Method Nasal Cannula Nasal Cannula Nasal Cannula Oxygen Flow Rate (LPM) 2 2.5 2.5 01/10/24 16:31 01/10/24 17:01 01/10/24 17:31 Temperature Temperature Source Pulse Rate 82 88 71 Pulse Rate [Radial] Respiratory Rate Blood Pressure 92/42 L 108/43 L 104/42 L Blood Pressure [Right Arm] Blood Pressure Mean 57 64 50 Blood Pressure Mean [Right Arm] Blood Pressure Source [Right Arm] Blood Pressure Position [Right Arm] 02 Sat by Pulse Oximetry 97 95 96 Oxygen Delivery Method Nasal Cannula Nasal Cannula Nasal Cannula Oxygen Flow Rate (LPM) 2.5 2.5 2.5 Lab Data Lab Results 01/10/24 16:29: WBC 20.3 H*, RBC 4.48, Hgb 12.8, Hct 38.8, MCV 86.6, MCH 28.6, MCHC 33.0, RDW 15.5, Plt Count 294, MPV 8.0, Neut % (Auto) 91.6 H, Lymph % (Auto) 3.9 L, [place] % (Auto) 3.9, Eos % (Auto) 0.2, Baso % (Auto) 0.3, Neut # (Auto) 18.6 H, Lymph # (Auto) 0.8, [place] # (Auto) 0.8, Eos # (Auto) 0.0, Baso # (Auto) 0.1, Total Counted 100, Neutrophils % (Manual) 89 H, Lymphocytes % (Manual) 6 L, Monocytes % (Manual) 5, Platelet Estimate Normal, Poikilocytosis 1+, Anisocytosis 1+, Microcytosis 1+, Macrocytosis 1+, Ovalocytes 1+, PT 10.9, INR 0.97, APTT 22.1 L, Sodium 138, Potassium 4.5, Chloride 103, Carbon Dioxide 32 H, Anion Gap 7.5, BUN 29 H, Creatinine 0.80, Estimated Creat Clear 38, Estimated GFR 68, Est GFR ( Amer) 82, Glucose 152 H, Calcium 9.0, Total Bilirubin 1.5 H, AST > 1500 H*, ALT 813 H*, Alkaline Phosphatase 318 H, Troponin I 0.08 H, Total Protein 6.5, Albumin 3.7, Globulin 2.8, Albumin/Globulin Ratio 1.3, HIV 1&2 Antibody Rapid Nonreactive 01/10/24 16:40: Lactate 2.6 H 01/10/24 16:45: Urine Color Yellow, Urine Appearance Clear, Urine pH 6.0, Ur Specific [place] 1.020, Urine Protein Trace, Urine Glucose (UA) Negative, Urine Ketones Negative, Urine Blood 1+ A, Urine Nitrate Negative, Urine Bilirubin 1+ A , Urine Urobilinogen 1.0, Ur Leukocyte Esterase 1+ A, Urine RBC Occasional, Urine WBC 3-5, Ur Squamous Epith Cells 3-5 01/10/24 16:29 01/10/24 16:29 Orders (Tests/Meds): ED MEDICATIONS Generic Name Dose Route Start Last Admin Trade Name Freq PRN Reason Stop Dose Admin Lactated Ringer's 1,500 mls @ 750 mls/hr 01/10/24 17:17 01/10/24 18:44 Lactated Ringer's 1000 Ml Bag 30 ml/kg infuse over 2 hr (1500 ml) 01/10/24 19:16 750 mls/hr IV Administration .Q2H ONE Vancomycin/PEG/NADA/Lysine/Water 1.5 gm in 300 mls @ 150 mls/hr 01/10/24 17:30 Vancomycin 1.5gm/300ml (Peg) Premix IV 01/10/24 19:29 ONCE ONE Miscellaneous 1 each 01/10/24 17:15 Vancomycin Consult Request NOTAPPLIC 02/09/24 17:14 [facility] Sodium Chloride 10 ml 01/10/24 17:55 01/10/24 17:59 Sodium Chloride 0.9% 10ml Syr (Rad Only) IV 02/09/24 17:54 10 ml NEEDED PRN Administration Maintain IV Site Discontinued Medications Generic Name Dose Route Start Last Admin Trade Name Perezq PRN Reason Stop Dose Admin Lactated Ringer's 1,000 mls @ 999 mls/hr 01/10/24 16:17 01/10/24 16:48 Lactated Ringer's 1000 Ml Bag IV 01/10/24 17:17 999 mls/hr .Q1H1M ONE Administration Cefepime HCl 2 gm/ Sodium 100 mls @ 200 mls/hr 01/10/24 17:12 Chloride IV 01/10/24 17:41 ONCE ONE Metronidazole 500 mg in 100 mls @ 100 mls/hr 01/10/24 17:12 01/10/24 17:31 Flagyl 500mg/100ml Ivpb IV 01/10/24 18:11 100 mls/hr ONCE ONE Administration Iopamidol 75 ml 01/10/24 17:55 01/10/24 17:58 Iopamidol-370 (76%);100ml Bottle IV 01/10/24 17:56 75 ml ONCE ONE Administration Ondansetron HCl 4 mg 01/10/24 16:17 01/10/24 16:48 Ondansetron 4mg/2ml Vial IV 01/10/24 16:18 4 mg ONCE ONE Administration ORDERS Category Date Time Status CT abdomen pelvis w con Stat Cat Scan 10/20/24 17:31 Taken POCUS Point of Care (ER Only) Stat Exams 01/10/24 17:31 Ordered CBC w/Auto Diff [Complete Blood Count Auto Diff] Stat Lab 01/10/24 16:29 Completed CMP [Comprehensive Metabolic Panel] Stat Lab 01/10/24 16:29 Completed HIV (1&2) Antibody Rapid Stat Lab 01/10/24 16:29 Completed Hep C Ab with Reflex to RNA Stat Lab 01/10/24 16:29 Received Lactic Acid Stat Lab 01/10/24 16:40 Completed PT INR [Prothrombin Time INR] Stat Lab 01/10/24 16:29 Completed PTT [Activated Partial Thrombo Time] Stat Lab 01/10/24 16:29 Completed Trop I [Troponin I] Stat Lab 01/10/24 16:29 Completed Troponin I Q3H Lab 01/10/24 19:30 Ordered Troponin I Q3H Lab 01/10/24 22:30 Ordered UA [Urinalysis and Microscopic] Stat Lab 01/10/24 16:45 Completed Blood Culture Stat Micro 01/10/24 16:40 Received Urine Culture Stat Micro 01/10/24 16:45 Received Medical Decision Narrative: 88-year-old female history of hypertension, hyperlipidemia, COPD on 2 L nasal cannula, CAD status post stenting, dementia presenting with vomiting. Per EMS, patient had 2 episodes of vomiting at her longterm, [facility]. skilled nursing staff called EMS given her appearance. Patient states that she had just gotten out of the car, was feeling carsick, vomited. Unknown if this is true. No current abdominal pain, nausea, fevers, chills, cough, urinary symptoms, diarrhea, chest pain, shortness of breath, or any other acute complaints. She states that she feels back to her baseline. I feel that she may be a poor historian because she does not remember why EMS was called, who called EMS, or the ride over. History was obtained via conversation with patient, EMS. On arrival, patient hemodynamically stable, alert, oriented to person, appropriate, GCS 15, moving all extremities spontaneously, pupils equal and reactive to light. Full physical exam performed and significant for very well-appearing female who is in no acute distress. She does have dry mucous membranes. Hypotensive with wide pulse pressure, nontachycardic. 97% on her home 2 L nasal cannula. Lungs are clear to auscultation anterior and posterior bilaterally. Abdomen soft, nontender, nondistended. No overlying skin change. No lower extremity edema. Differential includes UTI, pneumonia, sepsis, ACS, NV, viral syndrome, dehydration, polypharmacy, among others. Patient placed on continuous cardiac monitoring and continuous pulse ox with initial blood pressure 98/81, heart rate 77, saturation 95% on 2 L nasal cannula. Independent interpretation of EKG shows sinus rhythm with left bundle branch block morphology. QRS wide 135, AK 146, QTc 483. Sgarbossa negative ST changes. Left axis deviation. Patient was given fluids and empiric antibiotics with vancomycin, cefepime, Flagyl for symptomatic management and correction of underlying abnormalities. Workup independently interpreted and significant for leukocytosis of 20,000 with neutrophilic predominance. On independent interpretation of imaging, leukocytosis 20,000 with neutrophilia. Coags normal. Chemistry with normal kidney function. Lactate elevated at 2.6. AST undetectably high greater than 1500, ALT 813, alkaline phosphatase 318 and total bilirubin 1.5. Troponin elevated at 0.08, but nonischemic EKG. UA without concern for UTI. 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 See radiology read for full review of final results. [id number] ultrasound was attempted for 5 to 10 minutes at bedside but given the amount of bowel between the chest wall and liver, unable to visualize anything meaningful. On reevaluation, patient still resting comfortably without any acute complaints. Gastroenterology was contacted and consulted, case was discussed at length. Recommended admission for ERCP versus MRCP. Hospital medicine was consulted and case was discussed at length, to be admitted for further definitive management. Given patient presentation, workup, history, this most likely represents choledocholithiasis, abdominal sepsis. Because patient high risk for clinical decompensation, deemed appropriate for inpatient admission. Results were relayed to patient who voiced understanding and patient was agreeable to inpatient admission and management. Patient was admitted to the hospital for further definitive management. Fish Checker disclaimer Much of this encounter note is an electronic drying oven tender spoken language to printed text. Electronic drying oven tender of the spoken language may permit errors. Although I have reviewed the note, some errors may still exist. Critical Care Critical Care Time Critical Care Time: Yes (gi, id) Attestation: On 01/10/24, the high probability of a clinically significant, sudden or life threatening deterioration of the following system(s) required my full and direct attention, intervention and personal management. The time I documented below is in addition to time spent performing reported procedures but includes the following listed in this critical care notation. Total Time Total Critical Care Time: 45
[2024-01-10] MEDS: ONDANSETRON 4MG/2ML VIAL 4 MG IV ×2 (16:48→21:18)
[2024-01-10] MEDS: LACTATED RINGERS 1000ML 1,000 ML 999 ML IV (16:48)
[2024-01-10 16:49] LABS: Basophils # 0.1 K/mm3 (0-0.2); Basophils % 0.3 % (0.1-2.0); Eosinophils % 0.2 % (0.1-12.0); Hematocrit 38.8 % (37.0-47.0); Hemoglobin 12.8 g/dL (12.2-16.2); Lymphocytes # 0.8 K/mm3 (0.7-4.5); Lymphocytes % 3.9 % (10-50); Mean Corpuscular Hemoglobin 28.6 pg (27.0-31.2); Mean Corpuscular Volume 86.6 fl (81-99); Monocytes # 0.8 K/mm3 (0.1-1.0); Monocytes % 3.9 % (1.7-9.3); Neutrophils # 18.6 K/mm3 (1.8-7.8); Neutrophils % 91.6 % (37.0-80.0); Platelet Count 294 K/mm3 (142-424); Red Blood Count 4.48 M/mm3 (4.20-5.40); Red Cell Distribution Width 15.5 % (11.5-17.5); White Blood Count 20.3 K/mm3 (4.8-10.8)
[2024-01-10 16:55] LABS: Microscopic, Urine URINE MICROSCOPIC (MICROSCOPIC)
[2024-01-10 16:57] LABS: Albumin Level 3.7 g/dl (3.5-5.0); Chloride 103 mmol/L (98-107); Potassium 4.5 mmoL/L (3.5-5.1); Sodium 138 mmol/L (136-145)
[2024-01-10 16:59] LABS: Blood Urea Nitrogen 29 mg/dl (7-17); Creatinine Clearance Estimated 38 mL/min (50-200); Estimated Glomerular Filt Rate 68 ml/min (>60); GFR (African American) 82 ML/MIN (>60)
[2024-01-10 17:00] LABS: Albumin/Globulin Ratio 1.3 (1.1-1.8); Alkaline Phosphatase 318 U/L (38-126); Anion Gap 7.5 mEq/L (5-15); Bilirubin,Total 1.5 mg/dl (0.2-1.3); Carbon Dioxide 32 mmol/L (22.0-30.0); Globulin 2.8 g/dL (1.3-3.2); Glucose 152 mg/dl (74-100); Total Protein,Serum 6.5 g/dl (6.3-8.2)
[2024-01-10 17:02] LABS: Appearance,Urine CLEAR (Clear); Blood, Urine 1+ (Negative); Color,Urine YELLOW (Yellow); Glucose,Urine (UA) Negative (Negative); Ketones,Urine Negative (Negative); Leukocyte Esterase,Urine 1+ (Negative); Nitrate,Urine Negative (Negative); Protein,Urine TRACE (Negative)
[2024-01-10 17:03] LABS: MANUAL DIFFERENTIAL MANUAL DIFFERENTIAL (MANUAL DIFF)
[2024-01-10 17:07] LABS: Alanine Aminotransferase 813 U/L (12-78)
[2024-01-10 17:12] LABS: Troponin I 0.08 ng/ml (0.00-0.034)
[2024-01-10 17:24] LABS: Bilirubin,Urine 1+ (Negative)
[2024-01-10 17:25] LABS: Lactic Acid 2.6 mmol/L (0.7-2.1)
[2024-01-10 17:26] LABS: Aspartate Amino Transferase > 1500 U/L (14-36)
[2024-01-10 17:27] LABS: Lymphocytes % 6 % (10-50); Monocytes % 5 % (2-9); Neutrophils % 89 % (42-76); Total Cells Counted 100
[2024-01-10 17:28] LABS: Anisocytosis 1+; Microcytosis 1+; Platelet Estimate Normal
[2024-01-10 17:29] LABS: Macrocytosis 1+; Ovalocytes 1+; Poikilocytosis 1+
[2024-01-10] MEDS: METRONIDAZ/SOD CHL 500 MG/100 ML PIGGYBACK 100 MG IV (17:31)
--- NOTE | 2024-01-10 17:31 | CT_ITS ---
PROCEDURE INFORMATION: Exam: CT Abdomen And Pelvis With Contrast Exam date and time: 01/10/2024 5:55 PM Age: 88 years old Clinical indication: Other: Acute liver failure TECHNIQUE: Imaging protocol: Computed tomography of the abdomen and pelvis with contrast. Radiation optimization: All CT scans at this facility use at least one of these dose optimization techniques: automated exposure control; mA and/or kV adjustment per patient size (includes targeted exams where dose is matched to clinical indication); or iterative reconstruction. Contrast material: ISOVUE; Contrast volume: 75 ml; Contrast route: IV; COMPARISON: CT ABDOMEN PELVIS WO CON 07/19/2021 4:37 PM FINDINGS: Lungs: Bibasilar atelectasis versus parenchymal scarring. Subsegmental atelectasis greatest on the right Liver: Decreased density throughout the liver compatible with hepatic steatosis. Gallbladder and biliary ducts: Cholecystectomy Pancreas: The pancreatic atrophy Spleen: Splenic granulomas Adrenal glands: Normal. No mass. Kidneys and ureters: No hydronephrosis. Stomach and bowel: Apparent wall thickening in the colon may be secondary to incomplete filling versus mild colitis. Clinically correlate. Colonic wall thickening with pericolonic edema and inflamed diverticulum involving the descending and sigmoid colon compatible with acute diverticulitis. Appendix: No evidence of appendicitis. Intraperitoneal space: Unremarkable. No free air. No significant fluid collection. Vasculature: Scattered regions of atherosclerotic vascular calcification within the abdominal aorta and common iliac arteries. Lymph nodes: Unremarkable. No enlarged lymph nodes. Urinary bladder: Mild thickening of the bladder wall may reflect incomplete distension. Could not exclude changes of cystitis. Reproductive: See Bones/joints finding. Bones/joints: Lumbar spondylosis with multilevel disc degeneration. Approximate 3 cm cyst in the right hemipelvis. This may be ovarian in origin. Findings not optimally visualized no definitive findings to suggest abscess. Consider follow-up with a pelvic ultrasound. Artifact related to previous ORIF involving both femurs. Soft tissues: Unremarkable. IMPRESSION: 1. Mild thickening of the bladder wall may reflect incomplete distension. Could not exclude changes of cystitis. 2. Colonic wall thickening with pericolonic edema and inflamed diverticulum involving the descending and sigmoid colon compatible with acute diverticulitis. 3. Approximate 3 cm cyst in the right hemipelvis. This may be ovarian in origin. Findings not optimally visualized no definitive findings to suggest abscess. Consider follow-up with a pelvic ultrasound.
[2024-01-10 17:33] LABS: RBC,Urine Occasional #/hpf (0-3)
[2024-01-10 17:37] LABS: HIV (1&2) Antibody Rapid NONREACTIVE (NONREACTIVE)
[2024-01-10] MEDS: IOPAMIDOL-370 (76%);100ML BOTTLE 75 ML IV (17:58)
[2024-01-10] MEDS: SODIUM CHLORIDE 0.9% 10ML SYR (RAD ONLY) 10 ML IV (17:59)
[2024-01-10 18:00] LABS: Activated Partial Thrombo Time 22.1 seconds (22.8-30.6); INR 0.97 (0.9-1.1); Prothrombin Time 10.9 seconds (10.1-12.5)
[2024-01-10] MEDS: LACTATED RINGERS 1000ML 1,500 ML 750 ML IV (18:44)
[2024-01-10] MEDS: CEFEPIME HCL 2 GM in 0.9 % SODIUM CHLORIDE 100 ML IV (18:49)
[2024-01-10] MEDS: VANCOMYCIN/WATER FOR INJ (PEG) 1.5 GM/300 ML PIGGYBACK IV (19:53)
--- NOTE | 2024-01-10 19:56 | P.HP_ITS ---
History of Present Illness *Admission Date: 01/10/24 *Reason for visit:: Vomiting *History of present illness: Patient is a 88-year-old female who resides at [facility] resident, with past medical history COPD on 2 L nasal cannula, hypertension hyperlipidemia who presents to the hospital due to vomiting. On further evaluation patient was found to have biliary duct dilation, concerning for bile duct obstruction, my evaluation patient does not remember why she is in the hospital, she is very poor historian. Patient did not report chest pain shortness of breath. CT abdomen pelvis was performed which did show possible sigmoid colon diverticulitis and cystitis. [facility] Disclaimer: The information contained in this section may have been updated after the patient was seen, as this information can be updated by other users. Medical History UTI (urinary tract infection) recent E. coli infection sensitive to and treated with Nitrofurantoin--now asymptomatic Arthralgia of elbow, left Fall Elevated LFTs CHERRY (acute kidney injury) Thrombocytopenia Anemia Pancreatitis Diverticulitis Renal insufficiency Bacterial infection due to Proteus mirabilis Respiratory failure with hypercapnia Obesity (BMI 30-39.9) Elevated troponin IVCD (intraventricular conduction defect) Severe sepsis with acute organ dysfunction Cough with hemoptysis COPD with acute exacerbation Respiratory failure with hypercapnia Chest pain Anemia Elevated troponin Healthcare-associated pneumonia Vomiting Scalp laceration Fall History of CO (myocardial infarction) Age-related physical debility Malaise Overactive bladder Rheumatic arteritis Gastroesophageal reflux disease Heart failure stable Chronic insomnia Anxiety Major depression in partial remission Dementia Hyperlipidemia Hypertension well-controlled Surgical History Surgical history unknown Family History Other No significant family history Social History (Updated 01/10/24 @ 22:36 by Cee Perry RN) Smoking Status: Former smoker tobacco type: cigarettes alcohol intake: never substance use type: denies use and other current occupational status: retired Travel in the last 8 weeks: None housing: halfway Other Medical History Have you received the Flu Vaccine for this season: No Have you received the Pneumonia Vaccine: Yes Review of Systems Review of Systems Review of systems:: pertinent systems reviewed and negative unless documented below Meds Home Medications and Allergies Home Medications ?Medication ?Instructions ?Recorded ?Confirmed ?Type acetaminophen 500 mg tablet 1,000 mg PO Q4HP PRN Mild 12/11/19 12/28/23 History (Tylenol Extra Strength) Pain,Fever,Headache bisacodyl 10 mg rectal suppository 10 mg [place] DAILYP PRN Constipation 12/11/19 12/28/23 History docusate sodium 250 mg capsule 250 mg PO DAILY constipation 12/11/19 12/28/23 History melatonin 3 mg capsule 3 mg PO 1700 Insomnia 12/11/19 12/28/23 History ondansetron HCl 4 mg tablet 4 mg PO Q6HP PRN Nausea And 12/11/19 12/28/23 History (Zofran) Vomiting ropinirole 2 mg tablet,extended 2 mg PO BID Restless leg 12/11/19 12/28/23 History release 24 hr (Requip XL) furosemide 40 mg tablet 40 mg PO DAILY Fluid 04/18/21 12/28/23 History spironolactone 25 mg tablet 25 mg PO DAILY Fluid 04/18/21 12/28/23 History aspirin 81 mg chewable tablet 81 mg PO DAILY HEART HEALTH 07/20/21 12/28/23 History clopidogrel 75 mg tablet 75 mg PO DAILY PLATELET INHIBITOR 07/20/21 12/28/23 History sertraline 50 mg tablet 50 mg PO DAILY MOOD 07/20/21 12/28/23 History benzonatate 100 mg capsule 100 mg PO TID PRN Cough 01/13/23 12/28/23 History prednisone 10 mg tablet 10 mg PO DAILY inflammation 01/13/23 12/28/23 History guaifenesin 100 mg/5 mL oral liquid 200 mg PO QIDP PRN Cough 02/27/23 12/28/23 History sodium chloride 0.65 % nasal spray 1 spray intranasal BID 02/27/23 12/28/23 History aerosol (Deep Sea Nasal) gabapentin 100 mg capsule 100 mg PO BID Pain #60 caps 10/06/23 12/28/23 Rx hydrocodone 5 mg-acetaminophen 325 1 tab PO BID Pain #60 tabs 01/02/24 Rx mg tablet New Prescriptions to Start Prescriptions: Allergies Allergy/AdvReac Type Severity Reaction Status Date / Time alendronate sodium Allergy Unknown Verified 12/28/23 21:01 [From Fosamax] NSAIDS (Non-Steroidal Allergy Unknown Verified 12/28/23 21:01 Anti-Inflamma Penicillins Allergy Unknown Verified 12/28/23 21:01 Exam Data for Last 24 hours Vital signs and Labs for Last 24 Hours: Temp Pulse Resp BP Pulse Ox O2 Del Method O2 Flow Rate 99.0 F 80 20 104/43 L 97 Nasal Cannula 2.5 01/10/24 16:06 01/10/24 19:00 01/10/24 16:06 01/10/24 19:00 01/10/24 19:00 01/10/24 19:00 01/10/24 19:00 Laboratory Results - last 24 hr 01/10/24 16:29: WBC 20.3 H*, RBC 4.48, Hgb 12.8, Hct 38.8, MCV 86.6, MCH 28.6, MCHC 33.0, RDW 15.5, Plt Count 294, MPV 8.0, Neut % (Auto) 91.6 H, Lymph % (Auto) 3.9 L, [place] % (Auto) 3.9, Eos % (Auto) 0.2, Baso % (Auto) 0.3, Neut # (Auto) 18.6 H, Lymph # (Auto) 0.8, [place] # (Auto) 0.8, Eos # (Auto) 0.0, Baso # (Auto) 0.1, Total Counted 100, Neutrophils % (Manual) 89 H, Lymphocytes % (Manual) 6 L, Monocytes % (Manual) 5, Platelet Estimate Normal, Poikilocytosis 1+, Anisocytosis 1+, Microcytosis 1+, Macrocytosis 1+, Ovalocytes 1+, PT 10.9, INR 0.97, APTT 22.1 L, Sodium 138, Potassium 4.5, Chloride 103, Carbon Dioxide 32 H, Anion Gap 7.5, BUN 29 H, Creatinine 0.80, Estimated Creat Clear 38, Estimated GFR 68, Est GFR ( Amer) 82, Glucose 152 H, Calcium 9.0, Total Bilirubin 1.5 H, AST > 1500 H*, ALT 813 H*, Alkaline Phosphatase 318 H, Troponin I 0.08 H, Total Protein 6.5, Albumin 3.7, Globulin 2.8, Albumin/Globulin Ratio 1.3, HIV 1&2 Antibody Rapid Nonreactive 01/10/24 16:40: Lactate 2.6 H 01/10/24 16:45: Urine Color Yellow, Urine Appearance Clear, Urine pH 6.0, Ur Specific [place] 1.020, Urine Protein Trace, Urine Glucose (UA) Negative, Urine Ketones Negative, Urine Blood 1+ A, Urine Nitrate Negative, Urine Bilirubin 1+ A , Urine Urobilinogen 1.0, Ur Leukocyte Esterase 1+ A, Urine RBC Occasional, Urine WBC 3-5, Ur Squamous Epith Cells 3-5 I & O for Last 24 hours: Intake & Output 01/07/24 01/08/24 01/09/24 01/10/24 23:59 23:59 23:59 23:59 Weight 61.326 kg Constitutional Constitutional: no acute distress *Routine HEENT Exam Head: Present normocephalic Eye: Present EOMI and PERRL ENT: Present mucous membranes moist *Routine Neck Exam Neck: Present supple; Absent lymphadenopathy *Routine Respiratory Exam Respiratory: Present CTA bilaterally *Routine Cardiovascular Exam Cardiovascular: Present RRR *Routine Abdominal Exam Abdominal: Present soft and normoactive bowel sounds; Absent tenderness *Routine Rectal Exam Rectal:: deferred *Routine Genitalia Exam Genitalia:: deferred *Routine Extremities Exam Extremities: Absent cyanosis, clubbing or edema *Routine Skin Exam Skin: Present warm; Absent rash *Routine Neurological Exam Neurological: Present alert Comments: Patient is alert and awake but not very aware of surroundings, alert oriented x 2 Assessment and Plan *Assessment and plan (1) Vomiting: Status: Acute Category: Medical Code(s): R11.10 - Vomiting, unspecified (2) Acute hepatitis: Status: Acute Category: Medical Code(s): B17.9 - Acute viral hepatitis, unspecified (3) Choledocholithiasis: Status: Acute Category: Medical Code(s): K80.50 - Calculus of bile duct without cholangitis or cholecystitis without obstruction (4) Non-STEMI (non-ST elevated myocardial infarction): Status: Acute Category: Medical Code(s): I21.4 - Non-ST elevation (NSTEMI) myocardial infarction (5) CAD (coronary artery disease): Status: Chronic Qualifiers: Coronary Disease-Associated Artery/Lesion type: [place] artery [place] vs. transplanted heart: [place] heart Associated angina: without angina Qualified Code(s): I25.10 - Atherosclerotic heart disease of [place] coronary artery without angina pectoris Category: Medical Code(s): I25.10 - Atherosclerotic heart disease of [place] coronary artery without angina pectoris (6) Dementia: Status: Chronic Qualifiers: Dementia type: associated with other underlying disease Dementia behavioral disturbance: without behavioral disturbance Qualified Code(s): F02.80 - Dementia in other diseases classified elsewhere without behavioral disturbance Category: Medical Code(s): F03.90 - Unspecified dementia, unspecified severity, without behavioral disturbance, psychotic disturbance, mood disturbance, and anxiety (7) Hyperlipidemia: Status: Chronic Qualifiers: Hyperlipidemia type: mixed hyperlipidemia Qualified Code(s): E78.2 - Mixed hyperlipidemia Category: Medical Code(s): E78.5 - Hyperlipidemia, unspecified (8) Hypertension: Problem Comment: well-controlled Status: Chronic Qualifiers: Hypertension type: primary hypertension Qualified Code(s): I10 - Essential (primary) hypertension Category: Medical Code(s): I10 - Essential (primary) hypertension Plan Patient is a 88-year-old female who resides at [facility] resident, with past medical history COPD on 2 L nasal cannula, hypertension hyperlipidemia who presents to the hospital due to vomiting. On further evaluation patient was found to have biliary duct dilation, concerning for bile duct obstruction, my evaluation patient does not remember why she is in the hospital, she is very poor historian. Patient did not report chest pain shortness of breath. CT abdomen pelvis was performed which did show possible sigmoid colon diverticulitis and cystitis. Assessment and Plan Acute hepatitis, leukocytosis elevated bilirubin concerning for cholelithiasis Acute diverticulitis Cystitis on CT abdomen pelvis Start IV Zosyn Start IV fluids Consult gastroenterology AST greater than 1500, ALT 813 continue to monitor LFTs Chronic medical conditions CAD hypertension Hyperlipidemia Resume home medications when able to take p.o. DVT prophylaxis- Heparin
[2024-01-10 20:01] LABS: Troponin I 0.09 ng/ml (0.00-0.034)
--- NOTE | 2024-01-10 20:11 | PC.NURSE ---
Report called to Cee STONE
[2024-01-10 20:49] LABS: Reflex Lactic Add Lactic Reflex
[2024-01-10] MEDS: HEPARIN SODIUM 5,000 UNIT/ML VIAL 5000 UNIT SQ (21:17)
[2024-01-10 21:46] LABS: Lactic Acid Follow Up (RFLX 1) 2.1 mmol/L (0.7-2.1)
[2024-01-10 23:20] LABS: Reflex Lactic (2 hrs) Add Lactic Reflex
[2024-01-10 23:37] LABS: Lactic Acid Follow up (RFLX 2) 1.7 mmol/L (0.7-2.1)
[2024-01-11] VITALS: BP 110/60; PULSE 80; RESP 18; TEMP 36.4; O2SAT 95
[2024-01-11] MEDS: CEFEPIME HCL 2 GM in 0.9 % SODIUM CHLORIDE 100 ML IV ×4 (01:04→22:31)
[2024-01-11] MEDS: 0.9 % SODIUM CHLORIDE 1000ML 1,000 ML 75 ML IV ×2 (01:09→15:22)
--- NOTE | 2024-01-11 02:09 | PC.WOUNDNOTE ---
open pressure wound to right buttock
[2024-01-11 04:00] VITALS: BP 106/57; PULSE 79; RESP 18; TEMP 36.9; O2SAT 99; BMI 25.2
[2024-01-11] MEDS: HEPARIN SODIUM 5,000 UNIT/ML VIAL 5000 UNIT SQ ×3 (04:29→20:20)
--- NOTE | 2024-01-11 05:44 | PC.NURSE ---
Pt is alert to self with confusion. Pt has tolerated antibiotics well. Pt did c/o nausea and was treated per MAY. Pt has had no acute changes since admin, denies pain, and needs at this time.
[2024-01-11 06:29] LABS: POC Glucose,Bedside 86 (70-110)
--- NOTE | 2024-01-11 06:37 | PC.NURSE ---
pt arrived to unit on 2.5L of O2 and sating 100%, decresed O2 to 1.5 and then 1L Pt now sating 95%
[2024-01-11 07:27] LABS: Alanine Aminotransferase 508 U/L (12-78); Albumin/Globulin Ratio 1.2 (1.1-1.8); Alkaline Phosphatase 233 U/L (38-126); Anion Gap 5.7 mEq/L (5-15); Aspartate Amino Transferase 572 U/L (14-36); Bilirubin,Total 2.7 mg/dl (0.2-1.3); Blood Urea Nitrogen 27 mg/dl (7-17); Calcium 8.2 mg/dl (8.4-10.2); Carbon Dioxide 30 mmol/L (22.0-30.0); Chloride 108 mmol/L (98-107); Creatinine Clearance Estimated 38 mL/min (50-200); Estimated Glomerular Filt Rate 59 ml/min (>60); GFR (African American) 71 ML/MIN (>60); Globulin 2.5 g/dL (1.3-3.2); Glucose 84 mg/dl (74-100); Potassium 3.7 mmoL/L (3.5-5.1); Sodium 140 mmol/L (136-145); Total Protein,Serum 5.5 g/dl (6.3-8.2)
[2024-01-11 07:30] LABS: Red Cell Distribution Width 15.6 % (11.5-17.5)
[2024-01-11 07:32] VITALS: BP 102/56; PULSE 76; RESP 16; TEMP 36.9; O2SAT 98
--- NOTE | 2024-01-11 07:33 | EXP.GE.CONS ---
History of Present Illness *Admission Date: 01/10/24 *History of present illness: Mrs. Osullivan is an 88-year-old female with dementia and longterm patient. She presented yesterday to the emergency department with vomiting. I was notified by the ED Dr. Crook due to abnormal liver chemistries and abnormal CT scan. The patient also had a white blood cell count of greater than 20,000. She does have a prior history of C. difficile with last episode in June 2021 but also had C. difficile in August 2019. The patient's recent labs also showed a spike in her liver chemistries with AST on admission greater than 1500 and ALT at 813. Her alkaline phosphatase was 318 with total bilirubin 1.5. The patient had a wide pulse pressure with some hypotension. Her CT imaging showed hepatic steatosis and status postcholecystectomy. She had some pancreatic atrophy. The biliary system was upper limits of normal but the patient is postcholecystectomy. There was some colonic wall thickening with pericolonic edema and inflamed diverticulum involving the descending/sigmoid colon consistent with acute diverticulitis. Interestingly, the patient has had no symptoms overnight and this morning. The nurse reports no abdominal pain, nausea, vomiting or fever. Her CT scan of the abdomen in June 2021 showed a possible abnormal density within a dilated extrahepatic common bile duct suspicious of choledocholithiasis. Her ultrasound at that time showed normal biliary system. At that time she had some pancreatitis. Patient is a 88-year-old female who resides at [facility], with past medical history COPD on 2 L nasal cannula, hypertension hyperlipidemia who presents to the hospital due to vomiting. On further evaluation patient was found to have biliary duct dilation, concerning for bile duct obstruction, my evaluation patient does not remember why she is in the hospital, she is very poor historian. Patient did not report chest pain shortness of breath. CT abdomen pelvis was performed which did show possible sigmoid colon diverticulitis and cystitis. [facility] Disclaimer: The information contained in this section may have been updated after the patient was seen, as this information can be updated by other users. Medical History UTI (urinary tract infection) recent E. coli infection sensitive to and treated with Nitrofurantoin--now asymptomatic Arthralgia of elbow, left Fall Elevated LFTs CHERRY (acute kidney injury) Thrombocytopenia Anemia Pancreatitis Diverticulitis Renal insufficiency Bacterial infection due to Proteus mirabilis Respiratory failure with hypercapnia Obesity (BMI 30-39.9) Elevated troponin IVCD (intraventricular conduction defect) Severe sepsis with acute organ dysfunction Cough with hemoptysis COPD with acute exacerbation Respiratory failure with hypercapnia Chest pain Anemia Elevated troponin Healthcare-associated pneumonia Vomiting Scalp laceration Fall History of ID (myocardial infarction) Age-related physical debility Malaise Overactive bladder Rheumatic arteritis Gastroesophageal reflux disease Heart failure stable Chronic insomnia Anxiety Major depression in partial remission Dementia Hyperlipidemia Hypertension well-controlled Surgical History Surgical history unknown Family History Other No significant family history Social History (Updated 01/10/24 @ 22:36 by Cee Perry RN) Smoking Status: Former smoker tobacco type: cigarettes alcohol intake: never substance use type: denies use and other current occupational status: retired Travel in the last 8 weeks: None housing: longterm Meds Home Medications and Allergies Home Medications ?Medication ?Instructions ?Recorded ?Confirmed ?Type acetaminophen 500 mg tablet 1,000 mg PO Q4HP PRN Mild 12/11/19 01/11/24 History (Tylenol Extra Strength) Pain,Fever,Headache bisacodyl 10 mg rectal suppository 10 mg [place] DAILYP PRN Constipation 12/11/19 01/11/24 History docusate sodium 250 mg capsule 250 mg PO DAILY constipation 12/11/19 01/11/24 History melatonin 3 mg capsule 3 mg PO 1700 Insomnia 12/11/19 01/11/24 History ondansetron HCl 4 mg tablet 4 mg PO Q6HP PRN Nausea And 12/11/19 01/11/24 History (Zofran) Vomiting ropinirole 2 mg tablet,extended 2 mg PO BID Restless leg 12/11/19 01/11/24 History release 24 hr (Requip XL) furosemide 40 mg tablet 40 mg PO DAILY Fluid 04/18/21 01/11/24 History spironolactone 25 mg tablet 25 mg PO DAILY Fluid 04/18/21 01/11/24 History aspirin 81 mg chewable tablet 81 mg PO DAILY HEART HEALTH 07/20/21 01/11/24 History clopidogrel 75 mg tablet 75 mg PO DAILY PLATELET INHIBITOR 07/20/21 01/11/24 History sertraline 50 mg tablet 75 mg PO DAILY MOOD 07/20/21 01/11/24 History benzonatate 100 mg capsule 100 mg PO TID PRN Cough 01/13/23 01/11/24 History prednisone 10 mg tablet 10 mg PO DAILY inflammation 01/13/23 01/11/24 History sodium chloride 0.65 % nasal spray 1 spray intranasal BID 02/27/23 01/11/24 History aerosol (Deep Sea Nasal) gabapentin 100 mg capsule 100 mg PO BID Pain #60 caps 10/06/23 01/11/24 Rx hydrocodone 5 mg-acetaminophen 325 1 tab PO BID Pain #60 tabs 01/02/24 01/11/24 Rx mg tablet New Prescriptions to Start Prescriptions: Allergies Allergy/AdvReac Type Severity Reaction Status Date / Time alendronate sodium Allergy Unknown Verified 12/28/23 21:01 [From Fosamax] NSAIDS (Non-Steroidal Allergy Unknown Verified 12/28/23 21:01 Anti-Inflamma Penicillins Allergy Unknown Verified 12/28/23 21:01 Exam (Inpt) Vital signs and Labs for Last 24 Hours: Temp Pulse Resp BP Pulse Ox O2 Del Method O2 Flow Rate 98.5 F 79 18 106/57 L 99 Nasal Cannula 1 01/11/24 04:00 01/11/24 04:00 01/11/24 04:00 01/11/24 04:00 01/11/24 04:00 01/11/24 06:36 01/11/24 06:36 Laboratory Results - last 24 hr 01/10/24 16:29: WBC 20.3 H*, RBC 4.48, Hgb 12.8, Hct 38.8, MCV 86.6, MCH 28.6, MCHC 33.0, RDW 15.5, Plt Count 294, MPV 8.0, Neut % (Auto) 91.6 H, Lymph % (Auto) 3.9 L, [place] % (Auto) 3.9, Eos % (Auto) 0.2, Baso % (Auto) 0.3, Neut # (Auto) 18.6 H, Lymph # (Auto) 0.8, [place] # (Auto) 0.8, Eos # (Auto) 0.0, Baso # (Auto) 0.1, Total Counted 100, Neutrophils % (Manual) 89 H, Lymphocytes % (Manual) 6 L, Monocytes % (Manual) 5, Platelet Estimate Normal, Poikilocytosis 1+, Anisocytosis 1+, Microcytosis 1+, Macrocytosis 1+, Ovalocytes 1+, PT 10.9, INR 0.97, APTT 22.1 L, Sodium 138, Potassium 4.5, Chloride 103, Carbon Dioxide 32 H, Anion Gap 7.5, BUN 29 H, Creatinine 0.80, Estimated Creat Clear 38, Estimated GFR 68, Est GFR ( Amer) 82, Glucose 152 H, Calcium 9.0, Total Bilirubin 1.5 H, AST > 1500 H*, ALT 813 H*, Alkaline Phosphatase 318 H, Troponin I 0.08 H, Total Protein 6.5, Albumin 3.7, Globulin 2.8, Albumin/Globulin Ratio 1.3, HIV 1&2 Antibody Rapid Nonreactive 01/10/24 16:40: Lactate 2.6 H 01/10/24 16:45: Urine Color Yellow, Urine Appearance Clear, Urine pH 6.0, Ur Specific [place] 1.020, Urine Protein Trace, Urine Glucose (UA) Negative, Urine Ketones Negative, Urine Blood 1+ A, Urine Nitrate Negative, Urine Bilirubin 1+ A, Urine Urobilinogen 1.0, Ur Leukocyte Esterase 1+ A, Urine RBC Occasional, Urine WBC 3-5, Ur Squamous Epith Cells 3-5 01/10/24 19:26: Troponin I 0.09 H 01/10/24 21:15: Lactate 2.1 01/10/24 22:15: Troponin I 0.10 H 01/10/24 23:15: Lactate 1.7 01/11/24 06:20: POC Glucose 86 I & O for Labs for Last 24 Hours: Intake & Output 01/08/24 01/09/24 01/10/24 01/11/24 23:59 23:59 23:59 23:59 Intake Total 120 / 120 Output Total 0 / 0 0 / 0 Balance 0 / 120 120 / 120 Weight 135 lb 3.2 oz 137 lb GI: Present soft Comments:: Benign abdomen, normoactive bowel sounds, soft, nondistended, no rebound or guarding, no masses Results Labs 01/10/24 16:29 01/10/24 16:29 Labs: Laboratory Results - last 24 hr 01/10/24 16:29: WBC 20.3 H*, RBC 4.48, Hgb 12.8, Hct 38.8, MCV 86.6, MCH 28.6, MCHC 33.0, RDW 15.5, Plt Count 294, MPV 8.0, Neut % (Auto) 91.6 H, Lymph % (Auto) 3.9 L, [place] % (Auto) 3.9, Eos % (Auto) 0.2, Baso % (Auto) 0.3, Neut # (Auto) 18.6 H, Lymph # (Auto) 0.8, [place] # (Auto) 0.8, Eos # (Auto) 0.0, Baso # (Auto) 0.1, Total Counted 100, Neutrophils % (Manual) 89 H, Lymphocytes % (Manual) 6 L, Monocytes % (Manual) 5, Platelet Estimate Normal, Poikilocytosis 1+, Anisocytosis 1+, Microcytosis 1+, Macrocytosis 1+, Ovalocytes 1+, PT 10.9, INR 0.97, APTT 22.1 L, Sodium 138, Potassium 4.5, Chloride 103, Carbon Dioxide 32 H, Anion Gap 7.5, BUN 29 H, Creatinine 0.80, Estimated Creat Clear 38, Estimated GFR 68, Est GFR ( Amer) 82, Glucose 152 H, Calcium 9.0, Total Bilirubin 1.5 H, AST > 1500 H*, ALT 813 H*, Alkaline Phosphatase 318 H, Troponin I 0.08 H, Total Protein 6.5, Albumin 3.7, Globulin 2.8, Albumin/Globulin Ratio 1.3, HIV 1&2 Antibody Rapid Nonreactive 01/10/24 16:40: Lactate 2.6 H 01/10/24 16:45: Urine Color Yellow, Urine Appearance Clear, Urine pH 6.0, Ur Specific [place] 1.020, Urine Protein Trace, Urine Glucose (UA) Negative, Urine Ketones Negative, Urine Blood 1+ A, Urine Nitrate Negative, Urine Bilirubin 1+ A, Urine Urobilinogen 1.0, Ur Leukocyte Esterase 1+ A, Urine RBC Occasional, Urine WBC 3-5, Ur Squamous Epith Cells 3-5 01/10/24 19:26: Troponin I 0.09 H 01/10/24 21:15: Lactate 2.1 01/10/24 22:15: Troponin I 0.10 H 01/10/24 23:15: Lactate 1.7 01/11/24 06:20: POC Glucose 86 Assessment and Plan *Assessment and plan (1) Vomiting: Status: Acute Category: Medical Code(s): R11.10 - Vomiting, unspecified (2) Abnormal CAT scan: Status: Acute Category: Medical Code(s): R93.89 - Abnormal findings on diagnostic imaging of other specified body structures (3) Sigmoid diverticulitis: Status: Acute Category: Medical Code(s): K57.32 - Diverticulitis of large intestine without perforation or abscess without bleeding (4) Abnormal liver enzymes: Status: Acute Category: Medical Code(s): R74.8 - Abnormal levels of other serum enzymes Plan 1. Vomiting. This has resolved. Her CAT scan primarily showed thickening of the descending/sigmoid. The patient has had prior C. difficile. This could represent C. difficile or acute diverticulitis causing her leukocytosis. C. difficile is commonly associated with a leukemoid reaction. I would like for her to have stool PCR testing presently. I am going to recommend advancing diet. 2. [place] in liver chemistries with AST greater than ALT. There is no clear evidence of choledocholithiasis on the present scan. There was possible evidence of this on prior CT imaging in June 2021. Given her AICD, comorbidities, age and dementia, I would recommend doing noninvasive MRCP before proceeding with ERCP. However, patient has AICD and would not be candidate for MRI. I will obtain ultrasound today and follow liver chemistries. The patient is clinically asymptomatic which bodes against obstruction and certainly no evidence of cholangitis. I do feel that this rise in liver chemistries may be reactive and possibly even related to the hypotensive event (early shock liver/ischemic hepatopathy). She has had some mildly elevated liver chemistries on review of previous labs. 3. Acute sigmoid diverticulitis. There is thickening and certainly this could represent Acute diverticulitis versus changes of C. difficile colitis. I would obtain PCR.
--- NOTE | 2024-01-11 07:47 | CA_ITS ---
APPROVED REPORT EXAM: Comprehensive 2D, Doppler, and color-flow Echocardiogram Coarse Wire Drawer: Sheila Gonzáles, RCS, RVS Ht: 5 ft 1 in Wt: 137lbs BSA: 1.61 BP: 104/42 mmHg Indications: Elevated troponin, COPD, HLD, Ex-smoker, CHF, Old PA 2D Dimensions IVSd 1.14 cm LVEF (Visual) 79.30 % PWd 1.10 cm LA Volume 56.10 mL LVDd 4.15 cm LA Volume Index [id number] mL/m2 (M/F) 16-34 LVDs 2.18 cm EF AP4 60.40 % Aortic Root 2.99 cm GL Strain -16.8 % Left Atrium 3.94 cm RVID Base (AP4) 2.96 cm (M/F) 2.5-4.1 LVOT 1.83 cm (M/F) 1.5-2.5 M-Mode Dimensions RVDd 3.22 cm (0.9-2.6) LVDd 4.15 cm (3.5-5.7) Ao Diam 3.27 cm (2.0-3.7) LVDs 2.85 cm (3.5-5.7) IVSd 1.25 cm (0.6-1.1) PWd 1.13 cm (0.6-1.1) EF (Teich) 60.20% EPSs 0.97 cm FS 37.03% EDV (Teich) 77.70 mL TAPSE 1.56 (<1.7) ESV (Teich) 30.90 mL LV Diastology E Decel Time 258 (160-240 msec) E/A Ratio 0.90 MED E' 4.4 (>= 7 cm/sec) MED A' 7.60 cm/s E'/MED E' Ratio 19.61 (<= 14) LAT E' 7.3 (>= 10 cm/sec) LAT A' 12.10 cm/s E/LAT E' Ratio 11.82 (<= 14) Aortic Valve LVOT Max 90.0 (70-110 cm/s) RITA Index 0.91 cm2/m2 LVOT VTI 17.17 cm AoV Peak Marcelo. 152.0 (50-130 cm/s) AO Mean GR. 4.60 (<5 mmHg) AO VTI 31.0 (18-25 cm) RITA (VTI) 1.46 (2.5-4.5 cm2) Mitral Valve MV E Max Marcelo. 86.0 (40-130 cm/s) MV A Velocity 96.0 (40-130 cm/s) E/A Ratio 0.90 MV Decel. Time 258 (160-240 ms) Tricuspid Valve TR P. Velocity 233.00 cm/s RAP Estimate 10.00 mmHg RVSP 31.80 mmHg Left Ventricle The left ventricle is normal size. The left ventricular systolic function is normal. The left ventricular ejection fraction is within the normal range. There is marked increase in LV wall thickness. IVSD is 1.3 cm. The septum is asynchronous. No regional wall motion abnormalities are noted. Grade 2 diastolic dysfunction is present. LVEF is 55%. Right Ventricle Right ventricle is mild to moderately dilated. Right ventricle is mildly hypokinetic. Atria Left atrium is mildly dilated. Right atrium is mildly dilated. There is no Doppler evidence of interatrial shunt. Aortic Valve The aortic valve is mildly thickened. There is no aortic valvular stenosis. No aortic regurgitation is present. Mitral Valve The mitral valve leaflets are mildly thickened. Mild mitral regurgitation. No evidence of mitral valve stenosis. Tricuspid Valve The tricuspid valve leaflets are thin and pliable. Mild tricuspid regurgitation. RVSP is 15 mmHg + RA pressure. Pulmonic Valve The pulmonary valve is normal in structure. Trace pulmonic regurgitation. The ascending aorta is not well-visualized. Great Vessels The aortic root is normal in size. The IVC is not well-visualized. Pericardium There is no pericardial effusion. Other Information Study Quality: Fair Conclusion Normal LV systolic function. Increased LV wall thickness. IVSD 1.3 cm. Grade 2 diastolic dysfunction. Mild to moderate RV dilation with mild reduction in RV function. Biatrial dilation. Mild MR, mild TR. In the setting of diastolic dysfunction, increased LV wall thickness, and biatrial dilation, further outpatient evaluation with cardiac MRI (amyloidosis protocol) + PYP nuclear scan + amyloidosis lab testing is suggested. Electronically signed by : Juany Ochoa MD 01/11/2024 11:09:24
--- NOTE | 2024-01-11 07:49 | P.CONPHA_ITS ---
Pharmacy Consult Date: 01/11/24 Time: 07:49 Referring provider: DR. GRUBER Reason for Consult:: VANCOMYCIN DOSING Allergies Allergy/AdvReac Type Severity Reaction Status Date / Time alendronate sodium Allergy Unknown Verified 12/28/23 21:01 [From Fosamax] NSAIDS (Non-Steroidal Allergy Unknown Verified 12/28/23 21:01 Anti-Inflamma Penicillins Allergy Unknown Verified 12/28/23 21:01 Home Medications ?Medication ?Instructions ?Recorded ?Confirmed ?Type acetaminophen 500 mg tablet 1,000 mg PO Q4HP PRN Mild 12/11/19 01/11/24 History (Tylenol Extra Strength) Pain,Fever,Headache bisacodyl 10 mg rectal suppository 10 mg DE DAILYP PRN Constipation 12/11/19 01/11/24 History docusate sodium 250 mg capsule 250 mg PO DAILY constipation 12/11/19 01/11/24 History melatonin 3 mg capsule 3 mg PO 1700 Insomnia 12/11/19 01/11/24 History ondansetron HCl 4 mg tablet 4 mg PO Q6HP PRN Nausea And 12/11/19 01/11/24 History (Zofran) Vomiting ropinirole 2 mg tablet,extended 2 mg PO BID Restless leg 12/11/19 01/11/24 History release 24 hr (Requip XL) furosemide 40 mg tablet 40 mg PO DAILY Fluid 04/18/21 01/11/24 History spironolactone 25 mg tablet 25 mg PO DAILY Fluid 04/18/21 01/11/24 History aspirin 81 mg chewable tablet 81 mg PO DAILY HEART HEALTH 07/20/21 01/11/24 History clopidogrel 75 mg tablet 75 mg PO DAILY PLATELET INHIBITOR 07/20/21 01/11/24 History sertraline 50 mg tablet 75 mg PO DAILY MOOD 07/20/21 01/11/24 History benzonatate 100 mg capsule 100 mg PO TID PRN Cough 01/13/23 01/11/24 History prednisone 10 mg tablet 10 mg PO DAILY inflammation 01/13/23 01/11/24 History sodium chloride 0.65 % nasal spray 1 spray intranasal BID 02/27/23 01/11/24 History aerosol (Deep Sea Nasal) gabapentin 100 mg capsule 100 mg PO BID Pain #60 caps 10/06/23 01/11/24 Rx hydrocodone 5 mg-acetaminophen 325 1 tab PO BID Pain #60 tabs 10/12/24 10/21/24 Rx mg tablet New Prescriptions to Start Prescriptions: Height: 1.57 m Weight: 62.142 kg Laboratory Results:: Laboratory Results - last 24 hr 01/10/24 16:29: WBC 20.3 H*, RBC 4.48, Hgb 12.8, Hct 38.8, MCV 86.6, MCH 28.6, MCHC 33.0, RDW 15.5, Plt Count 294, MPV 8.0, Neut % (Auto) 91.6 H, Lymph % (Auto) 3.9 L, [place] % (Auto) 3.9, Eos % (Auto) 0.2, Baso % (Auto) 0.3, Neut # (Auto) 18.6 H, Lymph # (Auto) 0.8, [place] # (Auto) 0.8, Eos # (Auto) 0.0, Baso # (Auto) 0.1, Total Counted 100, Neutrophils % (Manual) 89 H, Lymphocytes % (Manual) 6 L, Monocytes % (Manual) 5, Platelet Estimate Normal, Poikilocytosis 1+, Anisocytosis 1+, Microcytosis 1+, Macrocytosis 1+, Ovalocytes 1+, PT 10.9, INR 0.97, APTT 22.1 L, Sodium 138, Potassium 4.5, Chloride 103, Carbon Dioxide 32 H, Anion Gap 7.5, BUN 29 H, Creatinine 0.80, Estimated Creat Clear 38, Estimated GFR 68, Est GFR ( Amer) 82, Glucose 152 H, Calcium 9.0, Total Bilirubin 1.5 H, AST > 1500 H*, ALT 813 H*, Alkaline Phosphatase 318 H, Troponin I 0.08 H, Total Protein 6.5, Albumin 3.7, Globulin 2.8, Albumin/Globulin Ratio 1.3, HIV 1&2 Antibody Rapid Nonreactive 01/10/24 16:40: Lactate 2.6 H 01/10/24 16:45: Urine Color Yellow, Urine Appearance Clear, Urine pH 6.0, Ur Specific [place] 1.020, Urine Protein Trace, Urine Glucose (UA) Negative, Urine Ketones Negative, Urine Blood 1+ A, Urine Nitrate Negative, Urine Bilirubin 1+ A , Urine Urobilinogen 1.0, Ur Leukocyte Esterase 1+ A, Urine RBC Occasional, Urine WBC 3-5, Ur Squamous Epith Cells 3-5 01/10/24 19:26: Troponin I 0.09 H 01/10/24 21:15: Lactate 2.1 01/10/24 22:15: Troponin I 0.10 H 01/10/24 23:15: Lactate 1.7 01/11/24 06:20: POC Glucose 86 01/11/24 06:45: Sodium 140, Potassium 3.7, Chloride 108 H, Carbon Dioxide 30, Anion Gap 5.7, BUN 27 H, Creatinine 0.90, Estimated Creat Clear 38, Estimated GFR 59, Est GFR ( Amer) 71, Glucose 84 D, Calcium 8.2 L, Total Bilirubin 2.7 H, AST 572 H* D, ALT 508 H*, Alkaline Phosphatase 233 H, Total Protein 5.5 L , Albumin 3.0 L D, Globulin 2.5, Albumin/Globulin Ratio 1.2 Medical History: Medical History (Updated 01/11/24 @ 07:40 by Mode Perez II, MD) UTI (urinary tract infection) Arthralgia of elbow, left Fall Elevated LFTs CHERRY (acute kidney injury) Thrombocytopenia Anemia Pancreatitis Diverticulitis Renal insufficiency Bacterial infection due to Proteus mirabilis Respiratory failure with hypercapnia Obesity (BMI 30-39.9) Elevated troponin IVCD (intraventricular conduction defect) Severe sepsis with acute organ dysfunction Cough with hemoptysis COPD with acute exacerbation Respiratory failure with hypercapnia Chest pain Anemia Elevated troponin Healthcare-associated pneumonia Vomiting Scalp laceration Fall History of [place] (myocardial infarction) Age-related physical debility Malaise Overactive bladder Rheumatic arteritis Gastroesophageal reflux disease Heart failure Chronic insomnia Anxiety Major depression in partial remission Dementia Hyperlipidemia Hypertension Assessment and Plan Assessment and plan all Dx Assessment and Plan for all problems:: Pharmacokinetic dosing service Objective: Patient: Floor: Age: 88 yo Serum creatinine: 0.90 mg/dL Height: 61.8 Inches Weight (kg): 62.1 Assessment: IBW (kg): 49.64 Dosing wt(kg): 62.1 Estimated Creatinine clearance (ml/min): 33.9 CRCL method: Cockcroft and Gault using ibw(default). Drug selected: Vancomycin Loading dose (mg): Vd (liters): 49.7 (factor used: 0.8 L/kg) Oniel (hr-1): 0.033 Half life (hrs): 21.00 CLvanco=?? 1.640 L/hr Recommended dose: 1250 mg Interval: 36 hrs Infusion time (hrs): 2.0 Predicted peak (mcg/mL): 35.0 Predicted trough (mcg/mL): 11.40 Total body weight is being used for vancomycin dosing. Recommendations: Give Vancomycin 1250 mg q 36 hrs with an expected Cpeak of 35.0 mcg/ml and an expected Ctrough of 11.40 mcg/ml AUC 0-24 /ORALIA Data: ORALIA 0.5 mcg/mL:?? AUC/ORALIA:? 1016.3 ORALIA 1.0 mcg/mL:?? AUC/ORALIA:? 508.1 --------- ORALIA 1.5 mcg/mL:?? AUC/ORALIA:? 338.8 ORALIA 2.0 mcg/mL:?? AUC/ORALIA:? 254.1 Thank you for the consult, will continue to follow. -ALVAREZ WALKER, JIMMIED
[2024-01-11 07:57] LABS: Basophils % 0.2 % (0.1-2.0); Eosinophils % 0.2 % (0.1-12.0); Lymphocytes # 1.6 K/mm3 (0.7-4.5); Lymphocytes % 9.6 % (10-50); Mean Corpuscular HGB Conc 31.5 g/dL (31.8-35.4); Mean Corpuscular Hemoglobin 28.2 pg (27.0-31.2); Mean Corpuscular Volume 89.4 fl (81-99); Mean Platelet Volume 8.2 fl (7.4-10.4); Monocytes # 0.6 K/mm3 (0.1-1.0); Monocytes % 3.6 % (1.7-9.3); Neutrophils # 13.9 K/mm3 (1.8-7.8); Neutrophils % 86.3 % (37.0-80.0); Platelet Count 216 K/mm3 (142-424); Red Blood Count 4.02 M/mm3 (4.20-5.40); White Blood Count 16.1 K/mm3 (4.8-10.8)
[2024-01-11 08:01] LABS: Hemoglobin 11.3 g/dL (12.2-16.2); MANUAL DIFFERENTIAL MANUAL DIFFERENTIAL (MANUAL DIFF)
--- NOTE | 2024-01-11 08:23 | ECG_ITS ---
APPROVED REPORT Exam: Resting ECG HR:75 bpm ECG Measurements Heart Rate 75 AXES UT 134 P 68 QRSd 142 QRS -35 QT 451 T 123 QTc 480 Conclusion SINUS RHYTHM WITH SINUS ARRHYTHMIA LEFT AXIS DEVIATION [QRS AXIS < -30] LEFT BUNDLE BRANCH BLOCK [120+ ms QRS DURATION, 80+ ms Q/S IN V1/V2, 85+ ms R IN I/aVL/V5/V6] ABNORMAL ECG UNCONFIRMED REPORT Electronically signed by : Robin Carvajal MD 01/13/2024 08:21:34
[2024-01-11 08:31] LABS: Lymphocytes % 15 % (10-50); Monocytes % 3 % (2-9); Neutrophils % 82 % (42-76); Total Cells Counted 100
[2024-01-11 08:32] LABS: Platelet Estimate Normal; RBC Morphology Normal
[2024-01-11] MEDS: METRONIDAZ/SOD CHL 500 MG/100 ML PIGGYBACK 100 MG IV ×3 (09:01→20:20)
--- NOTE | 2024-01-11 09:40 | HMH.PHAINT1 ---
Pharmacy Intervention Comments: Home medications verified using MAR from [facility].
--- NOTE | 2024-01-11 10:15 | P.CONCA_ITS ---
History of Present Illness History of Present Illness Consult date: 01/11/24 Requesting physician: Hermann Segura Chief complaint: vomiting History of present illness: Poor historian, most information obtained from chart: 88-year-old white female with past medical history of nonflow limiting coronary artery disease with a medical management [facility] 11/2020, known LBBB, HLD, dementia and HTN who presented to ER with complaints of vomiting x 2 at [facility]. Upon presentation to emergency department initial blood pressure was 98/81 with a heart rate of 77 and an oxygen saturation of 90% on 2 L. EKG showed sinus rhythm with a known left bundle branch block morphology at a rate of 83. Labs as follow: WBC 20.3, hemoglobin 12.8, sodium 138, potassium 4.5, creatinine 0.8, lactate 2.6, total bili 1.5 trending up to 2.7, AST 1500, ALT 813, alk phos 318 and initial troponin of 0.08 trending up to 0.3. A CT abdomen pelvis was obtained which showed mild thickening of the bladder wall which may reflect incomplete distention or cystitis, colonic wall thickening with pericolonic edema and inflamed diverticulum involving the descending and sigmoid colon compatible with acute diverticulitis and a 3 cm cyst in the right hemipelvis which may be ovarian in nature. Patient was admitted for further evaluation by GI. This morning patient is resting comfortably and denies any complaints. Specifically denies chest pain or shortness of breath. She is smiling and pleasant. Overall poor historian. [facility] Disclaimer: The information contained in this section may have been updated after the patient was seen, as this information can be updated by other users. Medical History UTI (urinary tract infection) recent E. coli infection sensitive to and treated with Nitrofurantoin--now asymptomatic Arthralgia of elbow, left Fall Elevated LFTs CHERRY (acute kidney injury) Thrombocytopenia Anemia Pancreatitis Diverticulitis Renal insufficiency Bacterial infection due to Proteus mirabilis Respiratory failure with hypercapnia Obesity (BMI 30-39.9) Elevated troponin IVCD (intraventricular conduction defect) Severe sepsis with acute organ dysfunction Cough with hemoptysis COPD with acute exacerbation Respiratory failure with hypercapnia Chest pain Anemia Elevated troponin Healthcare-associated pneumonia Vomiting Scalp laceration Fall History of [place] (myocardial infarction) Age-related physical debility Malaise Overactive bladder Rheumatic arteritis Gastroesophageal reflux disease Heart failure stable Chronic insomnia Anxiety Major depression in partial remission Dementia Hyperlipidemia Hypertension well-controlled Surgical History Surgical history unknown Family History Other No significant family history Social History (Updated 01/10/24 @ 22:36 by Cee Perry RN) Smoking Status: Former smoker tobacco type: cigarettes alcohol intake: never substance use type: denies use and other current occupational status: retired Travel in the last 8 weeks: None housing: care home Review of Systems Review of Systems Review of systems:: pertinent systems reviewed and negative unless documented below *Genitourinary Comments: vomiting Exam Data for Last 24 hours Vital signs and Labs for Last 24 Hours: Temp Pulse Resp BP Pulse Ox O2 Del Method O2 Flow Rate 98.4 F 76 16 102/56 L 98 Nasal Cannula 1 01/11/24 07:32 01/11/24 07:32 01/11/24 07:32 01/11/24 07:32 01/11/24 07:32 01/11/24 09:00 01/11/24 09:00 Laboratory Results - last 24 hr 01/10/24 16:29: WBC 20.3 H*, RBC 4.48, Hgb 12.8, Hct 38.8, MCV 86.6, MCH 28.6, MCHC 33.0, RDW 15.5, Plt Count 294, MPV 8.0, Neut % (Auto) 91.6 H, Lymph % (Auto) 3.9 L, [place] % (Auto) 3.9, Eos % (Auto) 0.2, Baso % (Auto) 0.3, Neut # (Auto) 18.6 H, Lymph # (Auto) 0.8, [place] # (Auto) 0.8, Eos # (Auto) 0.0, Baso # (Auto) 0.1, Total Counted 100, Neutrophils % (Manual) 89 H, Lymphocytes % (Manual) 6 L, Monocytes % (Manual) 5, Platelet Estimate Normal, Poikilocytosis 1+, Anisocytosis 1+, Microcytosis 1+, Macrocytosis 1+, Ovalocytes 1+, PT 10.9, INR 0.97, APTT 22.1 L, Sodium 138, Potassium 4.5, Chloride 103, Carbon Dioxide 32 H, Anion Gap 7.5, BUN 29 H, Creatinine 0.80, Estimated Creat Clear 38, Estimated GFR 68, Est GFR ( Amer) 82, Glucose 152 H, Calcium 9.0, Total Bilirubin 1.5 H, AST > 1500 H*, ALT 813 H*, Alkaline Phosphatase 318 H, Troponin I 0.08 H, Total Protein 6.5, Albumin 3.7, Globulin 2.8, Albumin/Globulin Ratio 1.3, HIV 1&2 Antibody Rapid Nonreactive 01/10/24 16:40: Lactate 2.6 H 01/10/24 16:45: Urine Color Yellow, Urine Appearance Clear, Urine pH 6.0, Ur Specific [place] 1.020, Urine Protein Trace, Urine Glucose (UA) Negative, Urine Ketones Negative, Urine Blood 1+ A, Urine Nitrate Negative, Urine Bilirubin 1+ A , Urine Urobilinogen 1.0, Ur Leukocyte Esterase 1+ A, Urine RBC Occasional, Urin e WBC 3-5, Ur Squamous Epith Cells 3-5 01/10/24 19:26: Troponin I 0.09 H 01/10/24 21:15: Lactate 2.1 01/10/24 22:15: Troponin I 0.10 H 01/10/24 23:15: Lactate 1.7 01/11/24 06:20: POC Glucose 86 01/11/24 06:45: WBC 16.1 H, RBC 4.02 L, Hgb 11.3 L D, Hct 36.0 L, MCV 89.4, MCH 28.2, MCHC 31.5 L, RDW 15.6, Plt Count 216 D, MPV 8.2, Neut % (Auto) 86.3 H, Lymph % (Auto) 9.6 L, [place] % (Auto) 3.6, Eos % (Auto) 0.2, Baso % (Auto) 0.2, Neut # (Auto) 13.9 H, Lymph # (Auto) 1.6, [place] # (Auto) 0.6, Eos # (Auto) 0.0, Baso # (Auto) 0.0, Total Counted 100, Neutrophils % (Manual) 82 H, Lymphocytes % (Manual) 15, Monocytes % (Manual) 3, Platelet Estimate Normal, RBC Morphology Normal, Sodium 140, Potassium 3.7, Chloride 108 H, Carbon Dioxide 30, Anion Gap 5.7, BUN 27 H, Creatinine 0.90, Estimated Creat Clear 38, Estimated GFR 59, Est GFR ( Amer) 71, Glucose 84 D, Calcium 8.2 L, Total Bilirubin 2.7 H, AST 572 H* D, ALT 508 H*, Alkaline Phosphatase 233 H, Troponin I 0.30 H, Total Protein 5.5 L, Albumin 3.0 L D, Globulin 2.5, Albumin/Globulin Ratio 1.2 I & O for Last 24 hours: Intake & Output 01/08/24 01/09/24 01/10/24 01/11/24 23:59 23:59 23:59 23:59 Intake Total 120 / 120 Output Total 0 / 0 0 / 0 Balance 0 / 120 120 / 120 Weight 135 lb 3.2 oz 137 lb Microbiology Reports for the Last 24 Hours: Microbiology 01/10/24 16:45 Urine,Clean Catch Urine Culture - Preliminary Gram Negative Rods Constitutional Constitutional: no acute distress *Routine Respiratory Exam Respiratory: Present CTA bilaterally and symmetric chest movement *Routine Cardiovascular Exam Cardiovascular: Present RRR, Normal S1 and Normal S2 *Routine Abdominal Exam Abdominal: Present tenderness *Routine Extremities Exam Extremities: Present full ROM and normal capillary refill; Absent edema *Routine Skin Exam Skin: Present intact, dry and warm Detailed Neck Exam: Thyroids Thyroid: Absent bruit Meds Home Medications and Allergies Home Medications ?Medication ?Instructions ?Recorded ?Confirmed ?Type acetaminophen 500 mg tablet 1,000 mg PO Q4HP PRN Mild 12/11/19 01/11/24 History (Tylenol Extra Strength) Pain,Fever,Headache bisacodyl 10 mg rectal suppository 10 mg HI DAILYP PRN Constipation 12/11/19 01/11/24 History docusate sodium 250 mg capsule 250 mg PO DAILY 12/11/19 01/11/24 History melatonin 3 mg capsule 3 mg PO HS 12/11/19 01/11/24 History ondansetron HCl 4 mg tablet 4 mg PO Q6HP PRN Nausea And 12/11/19 01/11/24 History (Zofran) Vomiting furosemide 40 mg tablet 40 mg PO DAILY 04/18/21 01/11/24 History spironolactone 25 mg tablet 25 mg PO DAILY 04/18/21 01/11/24 History aspirin 81 mg chewable tablet 81 mg PO DAILY 07/20/21 01/11/24 History clopidogrel 75 mg tablet 75 mg PO DAILY 07/20/21 01/11/24 History sertraline 50 mg tablet 50 mg PO DAILY 07/20/21 01/11/24 History benzonatate 100 mg capsule 100 mg PO TID PRN Cough 01/13/23 01/11/24 History prednisone 10 mg tablet 10 mg PO DAILY 01/13/23 01/11/24 History sodium chloride 0.65 % nasal spray 1 spray intranasal BID 02/27/23 01/11/24 History aerosol (Deep Sea Nasal) gabapentin 100 mg capsule 100 mg PO BID 01/11/24 01/11/24 History guaifenesin 100 mg/5 mL oral 200 mg PO Q6H PRN Congestion 01/11/24 01/11/24 History liquid (Radha-Tussin) hydrocodone 5 mg-acetaminophen 325 1 tab PO BID 01/11/24 01/11/24 History mg tablet ropinirole 2 mg tablet 2 mg PO BID 01/11/24 01/11/24 History sertraline 25 mg tablet 25 mg PO DAILY 01/11/24 01/11/24 History New Prescriptions to Start Prescriptions: Allergies Allergy/AdvReac Type Severity Reaction Status Date / Time alendronate sodium Allergy Unknown Verified 12/28/23 21:01 [From Fosamax] NSAIDS (Non-Steroidal Allergy Unknown Verified 12/28/23 21:01 Anti-Inflamma Penicillins Allergy Unknown Verified 12/28/23 21:01 Assessment and Plan *Assessment and plan (1) Abnormal liver enzymes: Status: Acute Category: Medical Code(s): R74.8 - Abnormal levels of other serum enzymes (2) Sigmoid diverticulitis: Status: Acute Category: Medical Code(s): K57.32 - Diverticulitis of large intestine without perforation or abscess without bleeding (3) Vomiting: Status: Acute Category: Medical Code(s): R11.10 - Vomiting, unspecified (4) Acute hepatitis: Status: Acute Category: Medical Code(s): B17.9 - Acute viral hepatitis, unspecified (5) Left bundle branch block: Status: Acute Category: Medical Code(s): I44.7 - Left bundle-branch block, unspecified (6) CAD (coronary artery disease): Status: Chronic Qualifiers: Associated angina: without angina Coronary Disease-Associated Artery/Lesion type: [place] artery [place] vs. transplanted heart: [place] heart Qualified Code(s): I25.10 - Atherosclerotic heart disease of [place] coronary artery without angina pectoris Category: Medical Code(s): I25.10 - Atherosclerotic heart disease of [place] coronary artery without angina pectoris (7) Myocardial injury: Status: Acute Category: Medical Code(s): I5A - Non-ischemic myocardial injury (non-traumatic) Plan History of mild nonflow limiting CAD Elevated troponin in the setting of acute illness Acute myocardial injury Known left bundle branch block Troponin trending up to 0.3 in the setting of acute illness EKG without acute ischemic changes noted Patient denies chest pain or shortness of breath Echo report normal LV systolic function, increased LV wall thickness, grade 2 diastolic dysfunction, mild to moderate RV dilation with mild reduction in RV function, biatrial dilation, mild MR, mild TR. in the setting of diastolic dysfunction and increased LV wall thickness with biatrial dilation further outpatient evaluation with cardiac MRI (amyloidosis protocol), PYP nuclear scan and amyloidosis lab testing is suggested Patient had left heart catheterization 11/2020: Mild nonflow limiting coronary disease with a normal ejection fraction and severely elevated LVEDP consistent with diastolic dysfunction No plan for intervention at this time Hypotension Systolic blood pressure remains less than 110 Did have episode where her blood pressure got as low as 81/39 documented, this could be contributing to the significant rise in elevated liver enzymes. Since then blood pressure has come up and liver enzymes are improving. Continue to monitor Gentle fluids Nausea vomiting Elevated liver enzymes Diverticulitis History of C. difficile AST 1500 trending down to 572 ALT 813 trending down to 508 Alk phos 318 trending down to 233 GI following CV summary 01/11/2024: Likely acute myocardial injury secondary to acute illness with nausea and vomiting. Patient denies chest pain or shortness of breath. Had mild nonflow limiting CAD noted on heart cath 11/2020. Echo shows normal ejection fraction without wall motion abnormalities noted. Official read is pending. Recommend outpatient ischemic evaluation and amyloidosis workup. Cardiology will sign off. Please contact service as needed.
[2024-01-11 11:20] VITALS: BP 123/57; PULSE 72; RESP 16; TEMP 36.6; O2SAT 95
[2024-01-11 12:02] LABS: POC Glucose,Bedside 108 (70-110)
[2024-01-11 16:00] VITALS: BP 108/46; PULSE 86; RESP 16; TEMP 36.9; O2SAT 94
[2024-01-11 17:18] LABS: POC Glucose,Bedside 129 (70-110)
--- NOTE | 2024-01-11 18:06 | PC.NURSE ---
Pt alert only to self and is pleasantly confused. Pt took out own IV today and stated I just need to get up . New IV placed in right wrist, Bed alarm on for pt safety. Pt weaned from 1.5L NC to RA pt tolerating this well with O2 90% and above. Pt has not had a bowel movement today so a stool sample was not able to be collected. Pt tolerating full liquid diet today with no complaints of nausea/vomiting. Pt resting in bed comfortably with family at bedside.
[2024-01-11 20:00] VITALS: BP 106/50; PULSE 70; RESP 18; TEMP 37.3; O2SAT 92
[2024-01-11 20:23] LABS: POC Glucose,Bedside 110 (70-110)
--- NOTE | 2024-01-11 20:41 | EXP.PN ---
Subjective *Date: 01/12/24 *Time: 00:14 Interval history: Patient is very pleasant and adorable. Sitting comfortably in bed without chest, abdominal pain, SOB. Exam Data for Last 24 hours Vital signs and Labs for Last 24 Hours: Temp Pulse Resp BP Pulse Ox O2 Del Method O2 Flow Rate 99.2 F 70 18 106/50 L 92 L Room Air 1 01/11/24 20:00 01/11/24 20:00 01/11/24 20:00 01/11/24 20:00 01/11/24 20:00 01/11/24 20:00 01/11/24 20:00 Laboratory Results - last 24 hr 01/10/24 16:45: Urine Color Yellow, Urine Appearance Clear, Urine pH 6.0, Ur Specific [place] 1.020, Urine Protein Trace, Urine Glucose (UA) Negative, Urine Ketones Negative, Urine Blood 1+ A, Urine Nitrate Negative, Urine Bilirubin 1+ A, Urine Urobilinogen 1.0, Ur Leukocyte Esterase 1+ A, Urine RBC Occasional, Urine WBC 3-5, Ur Squamous Epith Cells 3-5 01/10/24 21:15: Lactate 2.1 01/10/24 22:15: Troponin I 0.10 H 01/10/24 23:15: Lactate 1.7 01/11/24 06:20: POC Glucose 86 01/11/24 06:45: WBC 16.1 H, RBC 4.02 L, Hgb 11.3 L D, Hct 36.0 L, MCV 89.4, MCH 28.2, MCHC 31.5 L, RDW 15.6, Plt Count 216 D, MPV 8.2, Neut % (Auto) 86.3 H, Lymph % (Auto) 9.6 L, [place] % (Auto) 3.6, Eos % (Auto) 0.2, Baso % (Auto) 0.2, Neut # (Auto) 13.9 H, Lymph # (Auto) 1.6, [place] # (Auto) 0.6, Eos # (Auto) 0.0, Baso # (Auto) 0.0, Total Counted 100, Neutrophils % (Manual) 82 H, Lymphocytes % (Manual) 15, Monocytes % (Manual) 3, Platelet Estimate Normal, RBC Morphology Normal, Sodium 140, Potassium 3.7, Chloride 108 H, Carbon Dioxide 30, Anion Gap 5.7, BUN 27 H, Creatinine 0.90, Estimated Creat Clear 38, Estimated GFR 59, Est GFR ( Amer) 71, Glucose 84 D, Calcium 8.2 L, Total Bilirubin 2.7 H, AST 572 H* D, ALT 508 H*, Alkaline Phosphatase 233 H, Troponin I 0.30 H, Total Protein 5.5 L, Albumin 3.0 L D, Globulin 2.5, Albumin/Globulin Ratio 1.2 01/11/24 11:52: POC Glucose 108 01/11/24 16:58: POC Glucose 129 H 01/11/24 20:14: POC Glucose 110 I & O for Last 24 hours: Intake & Output 01/08/24 01/09/24 01/10/24 01/11/24 23:59 23:59 23:59 23:59 Intake Total 560 / 560 Output Total 0 / 0 0 / 0 Balance 0 / 120 560 / 560 Weight 61.326 kg 62.142 kg Microbiology Reports for the Last 24 Hours: Microbiology 01/10/24 16:40 Blood Blood Culture - Preliminary NO GROWTH AFTER 24 HOURS 01/10/24 16:40 Blood Blood Culture - Preliminary 01/10/24 16:45 Urine,Clean Catch Urine Culture - Preliminary Gram Negative Rods Constitutional Constitutional: no acute distress *Routine HEENT Exam Head: Present normocephalic Eye: Present EOMI and PERRL ENT: Present mucous membranes moist *Routine Neck Exam Neck: Present supple; Absent lymphadenopathy *Routine Respiratory Exam Respiratory: Present CTA bilaterally *Routine Cardiovascular Exam Cardiovascular: Present RRR *Routine Abdominal Exam Abdominal: Present soft and normoactive bowel sounds; Absent tenderness *Routine Extremities Exam Extremities: Absent cyanosis, clubbing or edema *Routine Skin Exam Skin: Present warm; Absent rash *Routine Neurological Exam Neurological: Present alert Assessment and Plan *Assessment and plan (1) Vomiting: Status: Acute Category: Medical Code(s): R11.10 - Vomiting, unspecified (2) Acute hepatitis: Status: Acute Category: Medical Code(s): B17.9 - Acute viral hepatitis, unspecified (3) Choledocholithiasis: Status: Acute Category: Medical Code(s): K80.50 - Calculus of bile duct without cholangitis or cholecystitis without obstruction (4) Non-STEMI (non-ST elevated myocardial infarction): Status: Acute Category: Medical Code(s): I21.4 - Non-ST elevation (NSTEMI) myocardial infarction (5) CAD (coronary artery disease): Status: Chronic Qualifiers: Coronary Disease-Associated Artery/Lesion type: [place] artery [place] vs. transplanted heart: [place] heart Associated angina: without angina Qualified Code(s): I25.10 - Atherosclerotic heart disease of [place] coronary artery without angina pectoris Category: Medical Code(s): I25.10 - Atherosclerotic heart disease of [place] coronary artery without angina pectoris (6) Dementia: Status: Chronic Qualifiers: Dementia type: associated with other underlying disease Dementia behavioral disturbance: without behavioral disturbance Qualified Code(s): F02.80 - Dementia in other diseases classified elsewhere without behavioral disturbance Category: Medical Code(s): F03.90 - Unspecified dementia, unspecified severity, without behavioral disturbance, psychotic disturbance, mood disturbance, and anxiety (7) Hyperlipidemia: Status: Chronic Qualifiers: Hyperlipidemia type: mixed hyperlipidemia Qualified Code(s): E78.2 - Mixed hyperlipidemia Category: Medical Code(s): E78.5 - Hyperlipidemia, unspecified (8) Hypertension: Problem Comment: well-controlled Status: Chronic Qualifiers: Hypertension type: primary hypertension Qualified Code(s): I10 - Essential (primary) hypertension Category: Medical Code(s): I10 - Essential (primary) hypertension Plan Patient is a 88-year-old female who resides at [facility] resident, with past medical history COPD on 2 L nasal cannula, hypertension hyperlipidemia who presents to the hospital due to vomiting. On further evaluation patient was found to have biliary duct dilation, concerning for bile duct obstruction, my evaluation patient does not remember why she is in the hospital, she is very poor historian. Patient did not report chest pain shortness of breath. CT abdomen pelvis was performed which did show possible sigmoid colon diverticulitis and cystitis. #Acute diverticulitis - Patient sitting comfortably in bed eating breakfast, not abdominal pain. - WBC improved from 20 to 16.1 today. - Continue IV cefepime, flagy. Discontinued IV vancomycin. - Gi consulted, concerned about Cdiff. - Follow-up Cdiff panel. #Hypotension, resolved #Shock liver - Intial AST > 1500, ALT 800's. Both improved today 512/508. - Other LFTs also elevated including total bili 2.7, ALP 233. - Patient has had cholecystecomy. No evidence of choledocholithiasis on CT abdomen. - GI consulted, recommended MRCP. Patient was not NPO for that today. - F/u MRCP, morning LFTs. #Elevated troponin in the setting of acute illness #History of mild nonflow limiting CAD #Acute myocardial injury #Known left bundle branch block - Troponin trending up to 0.3 in the setting of acute illness - EKG without acute ischemic changes noted - Patient denies chest pain or shortness of breath - Echo report normal LV systolic function, increased LV wall thickness, grade 2 diastolic dysfunction. - Patient had left heart catheterization 11/2020: Mild nonflow limiting coronary disease with a normal ejection fraction and severely elevated LVEDP consistent with diastolic dysfunction - Cardiology consulted, No plan for intervention at this time. Continue home aspirin, plavix #Hypertension - Resume home BP meds when appropriate for BP. currently stable. DNR DVT prophylaxis- Heparin
[2024-01-12] VITALS: BP 114/56; PULSE 81; RESP 17; TEMP 36.7; O2SAT 91
[2024-01-12] MEDS: HYDROMORPHONE 2MG/ML SYRINGE 2 MG IV (00:11)
--- NOTE | 2024-01-12 01:41 | PC.NURSE ---
Addendum entered by Octavio Victoria RN 01/12/24 06:15: [id number] : patient awake, confused, wanting someone to sit with her, begging to go home. 599-current : patient asleep Original Note: : patient was moved from 201 to 215 r/t climbing out of bed, unable to prop door open, etc. Once in 215, patient was calm temporarily and then yelled frequently after, alert to self only, screaming to go home, trying to rip out IV, stated that she was hurting and uncomfortable (back, legs) - SEE 144 : patient finally resting comfortably in bed, asleep.
[2024-01-12] MEDS: HEPARIN SODIUM 5,000 UNIT/ML VIAL 5000 UNIT SQ ×2 (03:42→20:24)
[2024-01-12 04:00] VITALS: BP 107/60; PULSE 85; RESP 16; TEMP 36.7; O2SAT 90; BMI 26.2
[2024-01-12 05:25] LABS: POC Glucose,Bedside 80 (70-110)
[2024-01-12] MEDS: 0.9 % SODIUM CHLORIDE 1000ML 1,000 ML 75 ML IV (05:39)
[2024-01-12] MEDS: CEFEPIME HCL 2 GM in 0.9 % SODIUM CHLORIDE 100 ML IV ×2 (06:37→17:30)
[2024-01-12 06:48] LABS: Basophils % 0.3 % (0.1-2.0); Eosinophils # 0.1 K/mm3 (0.0-0.4); Eosinophils % 0.7 % (0.1-12.0); Hemoglobin 10.3 g/dL (12.2-16.2); Lymphocytes # 1.4 K/mm3 (0.7-4.5); Mean Corpuscular HGB Conc 32.2 g/dL (31.8-35.4); Mean Corpuscular Hemoglobin 28.9 pg (27.0-31.2); Mean Corpuscular Volume 89.8 fl (81-99); Mean Platelet Volume 8.6 fl (7.4-10.4); Monocytes # 0.4 K/mm3 (0.1-1.0); Monocytes % 4.3 % (1.7-9.3); Neutrophils # 7.9 K/mm3 (1.8-7.8); Neutrophils % 80.5 % (37.0-80.0); Platelet Count 181 K/mm3 (142-424); Red Blood Count 3.57 M/mm3 (4.20-5.40); Red Cell Distribution Width 15.8 % (11.5-17.5); White Blood Count 9.8 K/mm3 (4.8-10.8)
[2024-01-12 07:00] LABS: Alanine Aminotransferase 267 U/L (12-78); Albumin Level 2.8 g/dl (3.5-5.0); Albumin/Globulin Ratio 1.2 (1.1-1.8); Alkaline Phosphatase 195 U/L (38-126); Anion Gap 8.6 mEq/L (5-15); Aspartate Amino Transferase 210 U/L (14-36); Bilirubin,Total 2.9 mg/dl (0.2-1.3); Blood Urea Nitrogen 21 mg/dl (7-17); Calcium 7.9 mg/dl (8.4-10.2); Carbon Dioxide 22 mmol/L (22.0-30.0); Chloride 112 mmol/L (98-107); Creatinine Clearance Estimated 40 mL/min (50-200); Estimated Glomerular Filt Rate 68 ml/min (>60); GFR (African American) 82 ML/MIN (>60); Globulin 2.4 g/dL (1.3-3.2); Glucose 70 mg/dl (74-100); Potassium 3.6 mmoL/L (3.5-5.1); Sodium 139 mmol/L (136-145); Total Protein,Serum 5.2 g/dl (6.3-8.2)
--- NOTE | 2024-01-12 07:00 | MR_ITS ---
PROCEDURE INFORMATION: Exam: MR Abdomen Without and With Contrast Exam date and time: 01/12/2024 9:58 AM Age: 88 years old Clinical indication: Abdominal pain; Additional info: Abdomen pain TECHNIQUE: Imaging protocol: Magnetic resonance imaging of the abdomen without and with contrast. Contrast material: PROHANCE; Contrast volume: 12 ml; Contrast route: IV; COMPARISON: CT ABDOMEN PELVIS W CON 01/10/2024 5:55 PM FINDINGS: Lungs: Mild right basilar subsegmental atelectasis. Pleural spaces: Trace right pleural effusion with overlying passive atelectasis. Diaphragm: Elevated right hemidiaphragm. Liver: Unremarkable liver. No focal hepatic lesion. Moderate intrahepatic and extrahepatic biliary dilatation. Gallbladder and biliary ducts: Status post cholecystectomy. Multiple filling defects consistent with calculi are present in the common bile duct. Pancreas: Unremarkable. No ductal dilation. Spleen: Unremarkable. No splenomegaly. Adrenal glands: Unremarkable. No mass. Kidneys: Benign-appearing parapelvic cyst in the right kidney.. No further follow-up needed. Stomach and bowel: Visualized stomach and intestines are unremarkable. Intraperitoneal space: No free fluid. Vasculature: No abdominal aortic aneurysm. Lymph nodes: No enlarged nodes. Bones/joints: Normal bone marrow signal. No soft tissue abnormality. Soft tissues: See Bones/joints finding. Other findings: No abnormal postcontrast enhancement. IMPRESSION: 1. Status post cholecystectomy. 2. Moderate intra and extrahepatic biliary dilatation. The common bile duct is full of calculi. 3. Trace right pleural effusion. COMMENTS: Consistent with the [employer]'s Incidental Findings Committee white paper (J Am Mary Radiol 2018): Any incidental renal lesion less than 1 cm or classified as too small to characterize, or any incidental cystic renal lesion characterized as simple-appearing, is likely benign. No follow-up imaging is recommended for these lesions per consensus recommendations based on imaging criteria.
[2024-01-12 07:54] VITALS: BP 126/88; PULSE 80; RESP 18; TEMP 36.6; O2SAT 92
--- NOTE | 2024-01-12 08:11 | SW/DCPLANNER ---
Addendum entered by Magy Gil 01/14/24 08:13: I have updated Haley w/ [facility] that patient will return today and will need 5 days of IM Invanz. Original Note: This patient currently resides at [facility] level of care. I will continue to follow up w/ Haley at [place] until patient is medically stable for discharge. Discharge date is unknown at this time.
[2024-01-12] MEDS: HYDROCODONE/APAP 5/325 MG TABLET 1 TAB PO ×2 (08:18→20:25)
[2024-01-12] MEDS: METRONIDAZ/SOD CHL 500 MG/100 ML PIGGYBACK 100 MG IV ×3 (08:18→20:24)
[2024-01-12] MEDS: GABAPENTIN 100MG CAPSULE 100 MG PO ×2 (08:19→20:25)
[2024-01-12] MEDS: CLOPIDOGREL 75MG TAB 75 MG PO (08:19)
[2024-01-12] MEDS: predniSONE 10MG TAB 10 MG PO (08:19)
[2024-01-12] MEDS: ROPINIROLE 1MG TABLET 2 MG PO ×2 (08:19→20:25)
[2024-01-12] MEDS: ASPIRIN 81MG CHEWABLE TABLET 81 MG PO (08:19)
[2024-01-12] MEDS: SERTRALINE 50MG TABLET 75 MG PO (08:20)
--- NOTE | 2024-01-12 08:24 | EXP.ACUTE.PN ---
Subjective *Date: 01/12/24 *Time: 14:20 Interval history: Patient states she feeling a little better today. No fever overnight. No nausea or vomiting. Tolerating clear liquid diet. Continues to require 1 L nasal cannula oxygen. Family at bedside on afternoon rounds, updated of findings and plan. Medical Exam Vital signs and Labs for Last 24 Hours: Vital Signs Temp Pulse Resp BP Pulse Ox O2 Del Method O2 Flow Rate 01/12/24 07:54 97.9 F 80 18 126/88 92 L 01/12/24 06:15 Nasal Cannula 1 01/12/24 05:00 Nasal Cannula 1 01/12/24 04:00 98.1 F 85 16 107/60 L 90 L Nasal Cannula 1 01/12/24 02:39 Room Air 01/12/24 01:00 Room Air 01/12/24 00:00 98.1 F 81 17 114/56 L 91 L Room Air 01/11/24 23:00 Room Air 01/11/24 21:00 Room Air 01/11/24 20:00 99.2 F 70 18 106/50 L 92 L Nasal Cannula 1 01/11/24 20:00 Room Air 01/11/24 18:06 Room Air 01/11/24 17:00 Room Air 01/11/24 16:00 98.5 F 86 16 108/46 L 94 L Room Air 01/11/24 15:00 Room Air 01/11/24 13:00 Room Air 01/11/24 11:20 98 F 72 16 123/57 L 95 Nasal Cannula 1 01/11/24 11:00 Nasal Cannula 1 01/11/24 09:00 Nasal Cannula 1 Intake and Output 01/11/24 01/12/24 01/12/24 23:59 07:59 15:59 Intake Total 560 / 880 698 / 698 Output Total 0 / 0 Balance 560 / 880 698 / 698 Intake: Intake, Oral Amount 360 / 680 Intake, Total IV Amount 200 / 200 698 / 698 0.9 % Sodium Chloride 1000ML 1, 598 / 598 000 ml @ 75 mls/hr IV .[id number] SRINIVASA Rx#:[id number] Cefepime HCl 2 gm In 0.9 % 100 / 100 100 / 100 Sodium Chloride 100 ml @ 200 mls/hr IV Q8H SRINIVASA Rx#:[id number] Metronidaz/Sod Chl 500 mg In 100 / 100 100 ml @ 100 mls/hr IV TID [facility] Rx#:[id number] Output: Output, Urine Amount 0 / 0 Other: Number of Unmeasured Voids 1 Weight 64.637 kg Patient Weight 01/12/24 23:59 Weight 64.637 kg Laboratory Results - last 24 hr 01/10/24 16:45: Urine Color Yellow, Urine Appearance Clear, Urine pH 6.0, Ur Specific [place] 1.020, Urine Protein Trace, Urine Glucose (UA) Negative, Urine Ketones Negative, Urine Blood 1+ A, Urine Nitrate Negative, Urine Bilirubin 1+ A, Urine Urobilinogen 1.0, Ur Leukocyte Esterase 1+ A, Urine RBC Occasional, Urine WBC 3-5, Ur Squamous Epith Cells 3-5 01/11/24 06:45: Total Counted 100, Neutrophils % (Manual) 82 H, Lymphocytes % (Manual) 15, Monocytes % (Manual) 3, Platelet Estimate Normal, RBC Morphology Normal, Troponin I 0.30 H 01/11/24 11:52: POC Glucose 108 01/11/24 16:58: POC Glucose 129 H 01/11/24 20:14: POC Glucose 110 01/12/24 05:18: POC Glucose 80 01/12/24 05:19: WBC 9.8 D, RBC 3.57 L, Hgb 10.3 L, Hct 32.0 L, MCV 89.8, MCH 28.9, MCHC 32.2, RDW 15.8, Plt Count 181, MPV 8.6, Neut % (Auto) 80.5 H, Lymph % (Auto) 14.0, [place] % (Auto) 4.3, Eos % (Auto) 0.7, Baso % (Auto) 0.3, Neut # (Auto) 7.9 H, Lymph # (Auto) 1.4, [place] # (Auto) 0.4, Eos # (Auto) 0.1, Baso # (Auto) 0.0, Sodium 139, Potassium 3.6, Chloride 112 H, Carbon Dioxide 22, Anion Gap 8.6, BUN 21 H, Creatinine 0.80, Estimated Creat Clear 40, Estimated GFR 68, Est GFR ( Amer) 82, Glucose 70 L, Calcium 7.9 L, Total Bilirubin 2.9 H, AST 210 H D, ALT 267 H D, Alkaline Phosphatase 195 H, Total Protein 5.2 L, Albumin 2.8 L, Globulin 2.4, Albumin/Globulin Ratio 1.2 I & O for Labs for Last 24 Hours: Intake & Output 01/09/24 01/10/24 01/11/24 01/12/24 23:59 23:59 23:59 23:59 Intake Total 880 / 880 698 / 698 Output Total 0 / 0 0 / 0 Balance 0 / 120 880 / 880 698 / 698 Weight 61.326 kg 62.142 kg 64.637 kg Microbiology Reports for the Last 24 Hours: Microbiology 01/10/24 16:45 Urine,Clean Catch Urine Culture - Final Escherichia coli 01/10/24 16:40 Blood Blood Culture - Preliminary NO GROWTH AFTER 24 HOURS 01/10/24 16:40 Blood Blood Culture - Preliminary Constitutional: Present no acute distress, chronically ill appearing and cooperative Head: Present atraumatic and normocephalic ENT: Present normal exam Respiratory: Present normal respiratory effort; Absent rhonchi, wheezes or crackles Cardiac: Present Reg Rate and Rhythm GI: Present soft, tenderness (Mild right upper quadrant, no guarding or rebound) and normal bowel sounds; Absent distention Extremities: Present normal inspection and full ROM Skin: Present intact; Absent erythema Neuro: Present Grossly Intact, alert, awake and moves all extremities Comment:: Oriented to self and family at bedside. Does not know where she is or why Assessment and Plan *Assessment and plan (1) Septic shock: Problem Comment: Present on admission. Status: Acute Category: Medical Code(s): A41.9 - Sepsis, unspecified organism; R65.21 - Severe sepsis with septic shock (2) Acute hepatitis: Status: Acute Category: Medical Code(s): B17.9 - Acute viral hepatitis, unspecified (3) Diverticulitis: Status: Acute Category: Medical Code(s): K57.92 - Diverticulitis of intestine, part unspecified, without perforation or abscess without bleeding (4) Myocardial injury: Status: Acute Category: Medical Code(s): I5A - Non-ischemic myocardial injury (non-traumatic) (5) UTI (urinary tract infection): Problem Comment: recent E. coli infection sensitive to and treated with Nitrofurantoin--now asymptomatic Status: Acute Qualifiers: Hematuria presence: without hematuria Urinary tract infection type: site unspecified Qualified Code(s): N39.0 - Urinary tract infection, site not specified Category: Medical Code(s): N39.0 - Urinary tract infection, site not specified (6) Choledocholithiasis: Status: Acute Category: Medical Code(s): K80.50 - Calculus of bile duct without cholangitis or cholecystitis without obstruction (7) Non-STEMI (non-ST elevated myocardial infarction): Status: Acute Category: Medical Code(s): I21.4 - Non-ST elevation (NSTEMI) myocardial infarction (8) CAD (coronary artery disease): Status: Chronic Qualifiers: Associated angina: without angina Coronary Disease-Associated Artery/Lesion type: [place] artery [place] vs. transplanted heart: [place] heart Qualified Code(s): I25.10 - Atherosclerotic heart disease of [place] coronary artery without angina pectoris Category: Medical Code(s): I25.10 - Atherosclerotic heart disease of [place] coronary artery without angina pectoris (9) Dementia: Status: Chronic Qualifiers: Dementia behavioral disturbance: without behavioral disturbance Dementia type: associated with other underlying disease Qualified Code(s): F02.80 - Dementia in other diseases classified elsewhere without behavioral disturbance Category: Medical Code(s): F03.90 - Unspecified dementia, unspecified severity, without behavioral disturbance, psychotic disturbance, mood disturbance, and anxiety (10) Hyperlipidemia: Status: Chronic Qualifiers: Hyperlipidemia type: mixed hyperlipidemia Qualified Code(s): E78.2 - Mixed hyperlipidemia Category: Medical Code(s): E78.5 - Hyperlipidemia, unspecified (11) Hypertension: Problem Comment: well-controlled Status: Chronic Qualifiers: Hypertension type: primary hypertension Qualified Code(s): I10 - Essential (primary) hypertension Category: Medical Code(s): I10 - Essential (primary) hypertension Plan Ms. Osullivan is an 88-year-old female who resides at [facility]. She has a past medical history COPD on 2 L nasal cannula, hypertension hyperlipidemia who presents to the hospital due to vomiting. Presented with concerns for sepsis including tachycardia, leukocytosis, abnormal urine and diverticulitis on imaging. Also found to have biliary ductal dilatation. MRI obtained today, per my review shows ductal dilatation. Formal read reports intraductal stones. Cardiology and gastroenterology continue to assist with care. Symptoms showing improvement with normalization of white count. Continues to require inpatient management. Problems addressed as follows: # Septic shock #Acute diverticulitis # UTI # Choledocholithiasis/shock liver -Symptoms effervescing. White count normalized to 9.8 today. Hemoglobin remains at 10.3. Repeat CBC, CMP, magnesium ordered for the morning. -Urine culture growing E. coli. Sensitive to cephalosporins and doxycycline. Continue IV cefepime 2 g every 12hours along with Flagyl 500 mg 3 times a day IV -MRCP obtained, stones obstructing CBD. Discussed case with GI, plan for ERCP in the morning. -N.p.o. at midnight. Stool panel still pending. -Liver enzymes showing improvement, bilirubin 2.9, AST 210, ALT 267, alk phos 195. Showing gradual improvement but still not quite normal. -Kidney function normal BUN 21, creatinine 0.8. #Elevated troponin in the setting of acute illness #History of mild nonflow limiting CAD #Acute myocardial injury #Known left bundle branch block - Troponin trended up to 0.3 in the setting of acute illness. No chest pain at this time. - EKG without acute ischemic changes noted - Echo report normal LV systolic function, increased LV wall thickness, grade 2 diastolic dysfunction. - Patient had left heart catheterization 11/2020: Mild nonflow limiting coronary disease with a normal ejection fraction and severely elevated LVEDP consistent with diastolic dysfunction - Cardiology consulted, No plan for intervention at this time. Continue medical management with aspirin and Plavix. #Hypertension -Patient hypotensive on arrival. Holding home blood pressure medications at this time. Resume home BP meds when appropriate for BP. currently stable. DNR DVT prophylaxis- Heparin N.p.o. at midnight pending ERCP
[2024-01-12] MEDS: ALPRAZolam 0.5MG TABLET 0.5 MG PO (09:31)
[2024-01-12] MEDS: ONDANSETRON 4MG/2ML VIAL 4 MG IV (10:01)
[2024-01-12 11:15] LABS: HCV Ab Non Reactive (Non Reactive)
[2024-01-12] MEDS: GADOTERIDOL INJ 20ML SYRINGE 12 ML IV (11:34)
[2024-01-12] MEDS: SODIUM CHLORIDE 0.9% 50ML BAG 25 ML IV (11:34)
[2024-01-12] MEDS: SODIUM CHLORIDE 0.9% 10ML SYR (RAD ONLY) 10 ML IV (11:34)
[2024-01-12 11:45] LABS: POC Glucose,Bedside 125 (70-110)
[2024-01-12 12:00] VITALS: BP 106/49; PULSE 75; RESP 17; TEMP 36.3; O2SAT 93
--- NOTE | 2024-01-12 14:34 | PC.NURSE ---
Aox 1 with confusion, up with assistance times 2, bed alarm active, incontinent of bowel and bladder, turn every two hours, 18g R W NS@ 75ml/hr, from [facility].
[2024-01-12 16:00] VITALS: BP 124/79; PULSE 74; RESP 17; TEMP 36.6; O2SAT 96
--- NOTE | 2024-01-12 16:31 | EXP.PN ---
Subjective *Date: 01/12/24 *Time: 16:31 Interval history: Poor historian but patient clinically asymptomatic without any clear digestive difficulties overnight or today. Exam Data for Last 24 hours Vital signs and Labs for Last 24 Hours: Temp Pulse Resp BP Pulse Ox O2 Del Method O2 Flow Rate 98 F 74 17 124/79 96 Nasal Cannula 1 01/12/24 16:00 01/12/24 16:00 01/12/24 16:00 01/12/24 16:00 01/12/24 16:00 01/12/24 16:01 01/12/24 16:01 Laboratory Results - last 24 hr 01/10/24 16:29: Hepatitis C Antibody Non reactive 01/11/24 16:58: POC Glucose 129 H 01/11/24 20:14: POC Glucose 110 01/12/24 05:18: POC Glucose 80 01/12/24 05:19: WBC 9.8 D, RBC 3.57 L, Hgb 10.3 L, Hct 32.0 L, MCV 89.8, MCH 28.9, MCHC 32.2, RDW 15.8, Plt Count 181, MPV 8.6, Neut % (Auto) 80.5 H, Lymph % (Auto) 14.0, [place] % (Auto) 4.3, Eos % (Auto) 0.7, Baso % (Auto) 0.3, Neut # (Auto) 7.9 H, Lymph # (Auto) 1.4, [place] # (Auto) 0.4, Eos # (Auto) 0.1, Baso # (Auto) 0.0, Sodium 139, Potassium 3.6, Chloride 112 H, Carbon Dioxide 22, Anion Gap 8.6, BUN 21 H, Creatinine 0.80, Estimated Creat Clear 40, Estimated GFR 68, Est GFR ( Amer) 82, Glucose 70 L, Calcium 7.9 L, Total Bilirubin 2.9 H, AST 210 H D, ALT 267 H D, Alkaline Phosphatase 195 H, Total Protein 5.2 L, Albumin 2.8 L, Globulin 2.4, Albumin/Globulin Ratio 1.2 01/12/24 11:37: POC Glucose 125 H I & O for Last 24 hours: Intake & Output 01/09/24 01/10/24 01/11/24 01/12/24 23:59 23:59 23:59 23:59 Intake Total 880 / 880 1348 / 1348 Output Total 0 / 0 0 / 0 Balance 0 / 120 880 / 880 1348 / 1348 Weight 135 lb 3.2 oz 137 lb 142 lb 8 oz Microbiology Reports for the Last 24 Hours: Microbiology 01/10/24 16:40 Blood Blood Culture - Preliminary 01/10/24 16:45 Urine,Clean Catch Urine Culture - Final Escherichia coli 01/10/24 16:40 Blood Blood Culture - Preliminary NO GROWTH AFTER 24 HOURS Assessment and Plan *Assessment and plan (1) Choledocholithiasis: Status: Acute Category: Medical Code(s): K80.50 - Calculus of bile duct without cholangitis or cholecystitis without obstruction (2) Abnormal liver enzymes: Status: Acute Category: Medical Code(s): R74.8 - Abnormal levels of other serum enzymes Plan 1. Vomiting with spike in liver chemistries and prior CAT scan evidence of possible CBD stones in June 2021. Her liver chemistries did decline today with AST 210, ALT 267 and alkaline phosphatase 195. Her total bilirubin did elevate slightly at 2.9. Her MRCP today showed moderate intra and extrahepatic biliary ductal dilation of the common bile duct which is full of multiple filling defects/biliary calculi. Due to this choledocholithiasis and risk for cholangitis, I am going to proceed with ERCP tomorrow. The patient should be n.p.o. after midnight.
--- NOTE | 2024-01-12 18:32 | PC.NURSE ---
Called daughter with no answer at [phone].
[2024-01-12 20:00] VITALS: BP 148/85; PULSE 69; RESP 16; TEMP 36.6; O2SAT 100; O2SAT 95
[2024-01-12] MEDS: MELATONIN 5MG TABLET 5 MG PO (20:25)
[2024-01-13] VITALS (19 sets, daily range): BP systolic 96–146; BP diastolic 49–80; PULSE 69–82; RESP 14–19; TEMP 36.3–37.2; O2SAT 94–98; BMI 27.9
[2024-01-13] MEDS: 0.9 % SODIUM CHLORIDE 1000ML 1,000 ML 75 ML IV ×2 (03:29→22:03)
[2024-01-13] MEDS: HEPARIN SODIUM 5,000 UNIT/ML VIAL 5000 UNIT SQ (04:25)
[2024-01-13] MEDS: CEFEPIME HCL 2 GM in 0.9 % SODIUM CHLORIDE 100 ML IV ×2 (06:28→20:07)
--- NOTE | 2024-01-13 06:46 | PC.NURSE ---
Pt a/o to person majority of time although cooperative with care. Pt has not voiced any complaints to staff throughout shift. Tolerating 1 L nc well with sat >90%. Bed bath given to pt during shift, stage 2 on coccyx, dsg in place CDI. Pt has been incontinent of urine. Pt has been q2 turned. Bed alarm on for pt safety. Call light within reach
[2024-01-13 07:09] LABS: Basophils % 0.2 % (0.1-2.0); Eosinophils # 0.1 K/mm3 (0.0-0.4); Eosinophils % 0.5 % (0.1-12.0); Hematocrit 33.4 % (37.0-47.0); Hemoglobin 10.3 g/dL (12.2-16.2); Lymphocytes # 1.3 K/mm3 (0.7-4.5); Lymphocytes % 14.7 % (10-50); Mean Corpuscular HGB Conc 30.8 g/dL (31.8-35.4); Mean Corpuscular Hemoglobin 28.4 pg (27.0-31.2); Mean Platelet Volume 8.8 fl (7.4-10.4); Monocytes # 0.4 K/mm3 (0.1-1.0); Monocytes % 4.4 % (1.7-9.3); Neutrophils # 6.9 K/mm3 (1.8-7.8); Neutrophils % 80.2 % (37.0-80.0); Platelet Count 176 K/mm3 (142-424); Red Blood Count 3.63 M/mm3 (4.20-5.40); Red Cell Distribution Width 15.7 % (11.5-17.5); White Blood Count 8.6 K/mm3 (4.8-10.8)
[2024-01-13 07:16] LABS: Albumin Level 2.7 g/dl (3.5-5.0); Chloride 109 mmol/L (98-107); Potassium 3.6 mmoL/L (3.5-5.1); Sodium 136 mmol/L (136-145)
[2024-01-13 07:19] LABS: Alanine Aminotransferase 178 U/L (12-78); Albumin/Globulin Ratio 1.1 (1.1-1.8); Alkaline Phosphatase 190 U/L (38-126); Anion Gap 9.6 mEq/L (5-15); Aspartate Amino Transferase 91 U/L (14-36); Bilirubin,Total 1.2 mg/dl (0.2-1.3); Blood Urea Nitrogen 16 mg/dl (7-17); Calcium 8.2 mg/dl (8.4-10.2); Carbon Dioxide 21 mmol/L (22.0-30.0); Creatinine Clearance Estimated 42 mL/min (50-200); Estimated Glomerular Filt Rate 79 ml/min (>60); GFR (African American) 96 ML/MIN (>60); Globulin 2.5 g/dL (1.3-3.2); Glucose 102 mg/dl (74-100); Total Protein,Serum 5.2 g/dl (6.3-8.2)
[2024-01-13 07:25] LABS: C-Reactive Protein 51.4 mg/L (0-4)
--- NOTE | 2024-01-13 07:30 | FL_ITS ---
PROCEDURE INFORMATION: Exam: FL or XR Cholangiogram And/Or Pancreatography; Interpretation Only Exam date and time: 01/13/2024 7:30 AM Age: 88 years old Clinical indication: Device placement; Biliary stent; Patient HX: 4:11 fluoro. 64.26 mgy; Additional info: Choledocholithiasis TECHNIQUE: Imaging protocol: Cholangiogram and/or pancreatography. Image interpretation only. The interpreting radiologist was not present during procedure. Total images: 2 COMPARISON: MR ABDOMEN WO/W CON 01/12/2024 9:58 AM FINDINGS: Procedure summary: See separate operative report for detailed procedure summary. Procedural imaging: Cholangiogram shows no obvious filling defects or leak. IMPRESSION: Fluoroscopy provided for cholangiography.
[2024-01-13 08:59] LABS: Erythrocyte Sedimentation Rate 39 mm/hr (0-30)
[2024-01-13] MEDS: ASPIRIN 81MG CHEWABLE TABLET 81 MG PO (10:11)
[2024-01-13] MEDS: HYDROCODONE/APAP 5/325 MG TABLET 1 TAB PO (10:11)
[2024-01-13] MEDS: GABAPENTIN 100MG CAPSULE 100 MG PO (10:11)
[2024-01-13] MEDS: SERTRALINE 50MG TABLET 75 MG PO (10:11)
[2024-01-13] MEDS: METRONIDAZ/SOD CHL 500 MG/100 ML PIGGYBACK 100 MG IV ×3 (10:12→21:25)
[2024-01-13] MEDS: CLOPIDOGREL 75MG TAB 75 MG PO (10:12)
[2024-01-13] MEDS: ROPINIROLE 1MG TABLET 2 MG PO (10:12)
[2024-01-13] MEDS: predniSONE 10MG TAB 10 MG PO (10:12)
--- NOTE | 2024-01-13 12:26 | HMH.PROCNOTE ---
[facility] Procedure Note Date: 01/13/24 Time: 13:32 Procedure Note:: ERCP procedure Report: Endoscopic retrograde cholangiopancreatography with biliary sphincterotomy, balloon extraction and stent placement Endoscopist: Mode Perez II, MD Referring Physician: Robin Hay MD/Baldemar Tran MD Date of Procedure: January 13, 2024 Equipment: Olympus 180 side viewing endoscope duodenoscope Sedation: MAC sedation Indication: Mrs. Osullivan is an 88-year-old female with vomiting on admission and spike in liver chemistries. Her liver chemistries on admission were elevated with AST greater than 1500, ALT 813 and alkaline phosphatase 318. Her total bilirubin was 1.5. Yesterday, her liver chemistries declined some with AST 210, ALT 267 and alkaline phosphatase 195. Her total bilirubin increased to 2.9. Her CAT scan showed hepatic steatosis and postcholecystectomy but there was no evidence of significant biliary ductal dilation on CAT scan. There was some pancreatic atrophy. I did recommend MRCP and this showed moderate intra and extrahepatic biliary ductal dilation with the common bile duct full of multiple biliary calculi/choledocholithiasis. Her previous CAT scan from June 2021 was suggestive of choledocholithiasis as well. I have spoken with family and they understand the risks of choledocholithiasis and subsequent cholangitis and sepsis so ERCP is planned for removal CBD stones. Procedure: Prior to the procedure, a history and physical exam was performed, and patient's medications and allergies were reviewed. The risks, benefits and alternatives of the sedation and procedure were discussed with the patient. All questions were answered and informed consent was obtained. The patient was brought to the fluoroscopic radiology room. Patient identification and proposed procedure were verified by the physician and the nurse. The patient was placed in a swimmer's position between left lateral decubitus and prone position and the scope was passed under direct vision. Throughout the procedure, the patient's blood pressure, pulse, and oxygen saturations were monitored continuously. The ERCP was accomplished without difficulty. The patient tolerated the procedure well. Findings: The duodenoscope was advanced directly into the upper esophagus and advanced to the second portion of the duodenum. There was a small 2 cm hiatal hernia. There was mild reactive gastropathy. The duodenum and first portion were normal. There were overlapping conniventes and duodenal folds in the second portion making initial location of the ampulla less obvious but this was between the folds and identified. A guidewire was then utilized to cannulate and the pancreatic duct was cannulated initially with the guidewire easily advanced into the mid body of the pancreas. No contrast was injected into the pancreas. Next, the common bile duct was freely cannulated with a guidewire. The cholangiogram was performed and there was a moderate to markedly dilated common bile duct to 16 to 17 mm with evidence of multiple filling defects from the ampulla to the hilum and bifurcation of the right and left intrahepatic biliary system. This was consistent with multiple CBD stones and sludge. Next, a biliary sphincterotomy was performed to approximately 12 mm. Next, a sweeping balloon (9 to 12 mm) was placed at the hilum and swept to the biliary system 8-10 times. Multiple sweeping's were performed because continued yield of stones and debris. There were at least 5 black pigmented 8 to 9 mm stones and a marked amount of brownish-yellow sludge that was extracted. After multiple sweeps, a 10 [place]/7 cm biliary stent was deployed into the biliary system. The procedure was then ended. Impression: 1. Choledocholithiasis?multiple black pigmented bile duct stones with marked amount of brownish sludge (no purulence or evidence of cholangitis) status post biliary sphincterotomy, balloon extraction and stent placement Plan: A stent was placed because some of the stones and sludge can cake or debris against the biliary epithelium and complete clearance can be difficult upon first ERCP. The biliary stent will help maintain drainage and also aid in breaking up debris and stones. I will have her return in 3 months with removal of stent, sphincteroplasty and balloon or basket extraction of any remaining common bile duct stones.
--- NOTE | 2024-01-13 13:33 | P.PNANES_ITS ---
[facility] Disclaimer: The information contained in this section may have been updated after the patient was seen, as this information can be updated by other users. Medical History (Updated 01/12/24 @ 16:34 by Mode Perez II, MD) Choledocholithiasis Diverticulitis UTI (urinary tract infection) Arthralgia of elbow, left Fall Elevated LFTs CHERRY (acute kidney injury) Thrombocytopenia Anemia Pancreatitis Renal insufficiency Bacterial infection due to Proteus mirabilis Respiratory failure with hypercapnia Obesity (BMI 30-39.9) Elevated troponin IVCD (intraventricular conduction defect) Severe sepsis with acute organ dysfunction Cough with hemoptysis COPD with acute exacerbation Respiratory failure with hypercapnia Chest pain Anemia Elevated troponin Healthcare-associated pneumonia Vomiting Scalp laceration Fall History of IA (myocardial infarction) Age-related physical debility Malaise Overactive bladder Rheumatic arteritis Gastroesophageal reflux disease Heart failure Chronic insomnia Anxiety Major depression in partial remission Dementia Hyperlipidemia Hypertension Surgical History Surgical history unknown Family History Other No significant family history Social History (Updated 01/10/24 @ 22:36 by Cee Perry RN) Smoking Status: Former smoker tobacco type: cigarettes alcohol intake: never substance use type: denies use and other current occupational status: retired Travel in the last 8 weeks: None housing: long-term [facility] Anesthesia Checklist Patient Identification Patient Identification: Arm Band and Family Structural Data Admitted From: Inpatient Planned Operative Procedure/s: ERCP Consent for Planned Operative Procedure(s) Verified: Yes Verified Documents: Surgical Consent and History and Physical NPO Status Verified Time NPO: 00:00 Additional verifications Anesthesia Reactions: No Airway Assessment Mallampati Score:: Class II C-Spine Mobility Assessed: Yes TMJ Mobility Assessed: Yes Dentition: Edentulous Neurological Assessment Level of Consciousness: Awake and Inappropriate Anesthesia Plan Anesthesia Risk discussed: Yes Anesthesia Plan: Verified ASA Class: III Anesthesia Type: MAC
--- NOTE | 2024-01-13 13:34 | P.PNANES_ITS ---
[facility] Anesthesia Record Part I Anesthesia Record I Intake, IV Amount: 400 Hydration: Adequate Estimated blood loss (mL): 0 Urine output (mL): 0 Blood Products used (#): none Blood Pressure: 116/51 SaO2: 96 Pulse Rate: 74 Airway Patency: Patent Respiratory Rate: 16 Temperature: 97.5 F Patient is:: Drowsy and Stable Stable to PACU at:: 13:30
--- NOTE | 2024-01-13 14:45 | P.PN_ITS ---
Subjective *Date: 01/13/24 *Time: 18:12 Interval history: Patient better this morning. No nausea or vomiting. No belly pain. Planning for ERCP today. On 1 L oxygen. Medical Exam Vital signs and Labs for Last 24 Hours: Vital Signs Temp Pulse Pulse Resp BP BP Pulse Ox 01/13/24 14:00 97.5 F L 73 16 124/61 96 01/13/24 13:50 97.5 F L 71 16 114/56 L 96 01/13/24 13:40 97.5 F L 70 16 118/53 L 96 01/13/24 13:35 97.5 F L 74 16 116/51 L 01/13/24 13:30 97.5 F L 74 16 116/51 L 96 01/13/24 11:38 98.9 F 69 19 129/61 97 01/13/24 07:55 98.2 F 71 19 106/52 L 95 01/13/24 06:33 01/13/24 04:37 01/13/24 04:00 97.6 F 74 16 124/66 97 01/13/24 03:00 01/13/24 01:00 01/13/24 00:00 96 01/13/24 00:00 98.8 F 72 18 96/51 L 96 01/12/24 22:55 01/12/24 20:58 01/12/24 20:00 100 01/12/24 20:00 97.9 F 69 16 148/85 H 95 01/12/24 19:18 01/12/24 18:35 01/12/24 16:01 01/12/24 16:00 98 F 74 17 124/79 96 O2 Del Method O2 Flow Rate 01/13/24 14:00 Nasal Cannula 2 01/13/24 13:50 Nasal Cannula 2 01/13/24 13:40 Nasal Cannula 2 01/13/24 13:35 01/13/24 13:30 Nasal Cannula 2 01/13/24 11:38 Nasal Cannula 1 01/13/24 07:55 Nasal Cannula 1 01/13/24 06:33 Nasal Cannula 1 01/13/24 04:37 Nasal Cannula 1 01/13/24 04:00 Nasal Cannula 1 01/13/24 03:00 Nasal Cannula 01/13/24 01:00 Nasal Cannula 1 01/13/24 00:00 Nasal Cannula 1 01/13/24 00:00 Nasal Cannula 1 01/12/24 22:55 Nasal Cannula 1 01/12/24 20:58 Room Air 01/12/24 20:00 Room Air 01/12/24 20:00 Room Air 01/12/24 19:18 Nasal Cannula 1 01/12/24 18:35 Nasal Cannula 1 01/12/24 16:01 Nasal Cannula 1 01/12/24 16:00 Intake and Output 01/12/24 01/13/24 01/13/24 23:59 07:59 15:59 Intake Total 270 / 1838 100 / 500 400 / 500 Balance 270 / 1838 100 / 500 400 / 500 Intake: Intake, Oral Amount 270 / 390 Intake, Total IV Amount 100 / 500 400 / 500 Metronidaz/Sod Chl 500 mg In 100 / 100 100 ml @ 100 mls/hr IV TID [facility] Rx#:[id number] Other: Number of Unmeasured Voids 1 1 1 Number of Bowel Movements 1 Weight 68.81 kg 68.81 kg Patient Weight 01/13/24 23:59 Weight 68.81 kg Laboratory Results - last 24 hr 01/13/24 05:21: WBC 8.6, RBC 3.63 L, Hgb 10.3 L, Hct 33.4 L, MCV 92.0, MCH 28.4, MCHC 30.8 L, RDW 15.7, Plt Count 176, MPV 8.8, Neut % (Auto) 80.2 H, Lymph % (Auto) 14.7, [place] % (Auto) 4.4, Eos % (Auto) 0.5, Baso % (Auto) 0.2, Neut # (Auto) 6.9, Lymph # (Auto) 1.3, [place] # (Auto) 0.4, Eos # (Auto) 0.1, Baso # (Auto) 0.0, ESR 39 H, Sodium 136, Potassium 3.6, Chloride 109 H, Carbon Dioxide 21 L, Anion Gap 9.6, BUN 16, Creatinine 0.70, Estimated Creat Clear 42, Estimated GFR 79, Est GFR ( Amer) 96, Glucose 102 H, Calcium 8.2 L, Total Bilirubin 1.2, AST 91 H D, ALT 178 H D, Alkaline Phosphatase 190 H, C-Reactive Protein 51.4 H, Total Protein 5.2 L, Albumin 2.7 L, Globulin 2.5, Albumin/Globulin Ratio 1.1 I & O for Labs for Last 24 Hours: Intake & Output 01/10/24 01/11/24 01/12/24 01/13/24 23:59 23:59 23:59 23:59 Intake Total 880 / 880 1738 / 1838 500 / 500 Output Total 0 / 0 0 / 0 Balance 0 / 120 880 / 880 1738 / 1838 500 / 500 Weight 61.326 kg 62.142 kg 64.637 kg 68.81 kg Microbiology Reports for the Last 24 Hours: Microbiology 01/10/24 16:40 Blood Blood Culture - Preliminary 01/10/24 16:40 Blood Blood Culture - Final Morganella morganii Constitutional: Present no acute distress, chronically ill appearing and cooperative Head: Present atraumatic and normocephalic ENT: Present normal exam Respiratory: Present normal respiratory effort; Absent rhonchi, wheezes or crackles Cardiac: Present Reg Rate and Rhythm GI: Present soft, tenderness (Mild right upper quadrant, no guarding or rebound) and normal bowel sounds; Absent distention Extremities: Present normal inspection and full ROM Skin: Present intact; Absent erythema Neuro: Present Grossly Intact, alert, awake and moves all extremities Comment:: Oriented to self and family at bedside. Does not know where she is or why Assessment and Plan *Assessment and plan (1) Septic shock: Problem Comment: Present on admission. Status: Acute Category: Medical Code(s): A41.9 - Sepsis, unspecified organism; R65.21 - Severe sepsis with septic shock (2) Acute hepatitis: Status: Acute Category: Medical Code(s): B17.9 - Acute viral hepatitis, unspecified (3) Diverticulitis: Status: Acute Category: Medical Code(s): K57.92 - Diverticulitis of intestine, part unspecified, without perforation or abscess without bleeding (4) Myocardial injury: Status: Acute Category: Medical Code(s): I5A - Non-ischemic myocardial injury (non-traumatic) (5) UTI (urinary tract infection): Problem Comment: recent E. coli infection sensitive to and treated with Nitrofurantoin--now asymptomatic Status: Acute Qualifiers: Hematuria presence: without hematuria Urinary tract infection type: site unspecified Qualified Code(s): N39.0 - Urinary tract infection, site not specified Category: Medical Code(s): N39.0 - Urinary tract infection, site not specified (6) Choledocholithiasis: Status: Acute Category: Medical Code(s): K80.50 - Calculus of bile duct without cholangitis or cholecystitis without obstruction (7) Non-STEMI (non-ST elevated myocardial infarction): Status: Acute Category: Medical Code(s): I21.4 - Non-ST elevation (NSTEMI) myocardial infarction (8) CAD (coronary artery disease): Status: Chronic Qualifiers: Coronary Disease-Associated Artery/Lesion type: [place] artery [place] vs. transplanted heart: [place] heart Associated angina: without angina Qualified Code(s): I25.10 - Atherosclerotic heart disease of [place] coronary artery without angina pectoris Category: Medical Code(s): I25.10 - Atherosclerotic heart disease of [place] coronary artery without angina pectoris (9) Dementia: Status: Chronic Qualifiers: Dementia type: associated with other underlying disease Dementia behavioral disturbance: without behavioral disturbance Qualified Code(s): F02.80 - Dementia in other diseases classified elsewhere without behavioral disturbance Category: Medical Code(s): F03.90 - Unspecified dementia, unspecified severity, without behavioral disturbance, psychotic disturbance, mood disturbance, and anxiety (10) Hyperlipidemia: Status: Chronic Qualifiers: Hyperlipidemia type: mixed hyperlipidemia Qualified Code(s): E78.2 - Mixed hyperlipidemia Category: Medical Code(s): E78.5 - Hyperlipidemia, unspecified (11) Hypertension: Problem Comment: well-controlled Status: Chronic Qualifiers: Hypertension type: primary hypertension Qualified Code(s): I10 - Essential (primary) hypertension Category: Medical Code(s): I10 - Essential (primary) hypertension Plan Ms. Osullivan is an 88-year-old female who resides at [facility]. She has a past medical history COPD on 2 L nasal cannula, hypertension hyperlipidemia who presents to the hospital due to vomiting. Presented with concerns for sepsis including tachycardia, leukocytosis, abnormal urine and diverticulitis on imaging. Also found to have biliary ductal dilatation. MRI obtained today, per my review shows ductal dilatation. Formal read reports intraductal stones. Cardiology and gastroenterology continue to assist with care. Symptoms showing improvement with normalization of white count. Continues to require inpatient management. Anticipate discharge tomorrow back to nursing facility. Problems addressed as follows: # Septic shock #Acute diverticulitis # UTI # Choledocholithiasis/shock liver -Symptoms resolved. White count normalized to 8.6. Hemoglobin remains at 10.3. -Urine culture growing E. coli. Sensitive to cephalosporins and doxycycline. Continue IV cefepime 2 g every 12hours along with Flagyl 500 mg 3 times a day IV -MRCP obtained 01/11, stones obstructing CBD. - Taken for ERCP today with GI, numerous stones removed from common bile duct. Stent placed. Discussed case with GI, pleased with results of procedure. Recommend monitoring overnight with repeat EGD and ERCP in 3 weeks for removal of stent and repeat sweeping of duct - Liver enzymes showing improvement, bilirubin 1.2, AST 91, ALT 178, alk phos 190. Continue showing gradual improvement but still not quite normal. -Kidney function normal BUN 16, creatinine 0.7. -Repeat CBC, CMP, magnesium ordered for the morning #Elevated troponin in the setting of acute illness #History of mild nonflow limiting CAD #Acute myocardial injury #Known left bundle branch block - Troponin trended up to 0.3 in the setting of acute illness. No chest pain at this time. - EKG without acute ischemic changes noted - Echo report normal LV systolic function, increased LV wall thickness, grade 2 diastolic dysfunction. - Patient had left heart catheterization 11/2020: Mild nonflow limiting coronary disease with a normal ejection fraction and severely elevated LVEDP consistent with diastolic dysfunction - Cardiology consulted, No plan for intervention at this time. Continue medical management with aspirin and Plavix. #Hypertension -Patient hypotensive on arrival. Holding home blood pressure medications at this time. Resume home BP meds when appropriate for BP. currently stable. DNR DVT prophylaxis- Heparin Advance to regular diet after ERCP
--- NOTE | 2024-01-13 18:04 | PC.NURSE ---
Patient is only oriented to self. Patient had a ERCP today, post op VS are stable and patient has no c/o pain.
[2024-01-13 19:55] LABS: POC Glucose,Bedside 185 (70-110)
[2024-01-13] MEDS: MELATONIN 5MG TABLET 5 MG PO (20:08)
[2024-01-14] VITALS: BP 132/68; PULSE 75; RESP 18; TEMP 36.9; O2SAT 90
[2024-01-14 04:00] VITALS: BP 136/60; PULSE 72; RESP 18; TEMP 36.8; O2SAT 96; BMI 28.7
--- NOTE | 2024-01-14 06:20 | PC.NURSE ---
Pt alert to self this shift. She has tolerated 1L nasal cannula with O2 sats >90%. Pt did refuse nighttime meds. Has remained incontinent to bowels and bladder. Q2 turns. NS has been running @75 ml/hr. Currently asleep with call light within reach.
[2024-01-14] MEDS: CEFEPIME HCL 2 GM in 0.9 % SODIUM CHLORIDE 100 ML IV (06:28)
[2024-01-14 06:56] LABS: Chloride 114 mmol/L (98-107)
[2024-01-14 06:57] LABS: Albumin Level 2.6 g/dl (3.5-5.0); Potassium 3.9 mmoL/L (3.5-5.1); Sodium 138 mmol/L (136-145)
[2024-01-14 06:59] LABS: Blood Urea Nitrogen 15 mg/dl (7-17); Creatinine Clearance Estimated 43 mL/min (50-200); Estimated Glomerular Filt Rate 79 ml/min (>60); GFR (African American) 96 ML/MIN (>60)
[2024-01-14 07:00] LABS: Alanine Aminotransferase 123 U/L (12-78); Alkaline Phosphatase 162 U/L (38-126); Anion Gap 6.9 mEq/L (5-15); Aspartate Amino Transferase 62 U/L (14-36); Calcium 8.1 mg/dl (8.4-10.2); Carbon Dioxide 21 mmol/L (22.0-30.0); Globulin 2.5 g/dL (1.3-3.2); Glucose 87 mg/dl (74-100); Total Protein,Serum 5.1 g/dl (6.3-8.2)
[2024-01-14 07:12] LABS: Basophils % 0.1 % (0.1-2.0); Eosinophils % 0.4 % (0.1-12.0); Hematocrit 33.5 % (37.0-47.0); Hemoglobin 10.2 g/dL (12.2-16.2); Lymphocytes # 1.4 K/mm3 (0.7-4.5); Lymphocytes % 17.2 % (10-50); Mean Corpuscular HGB Conc 30.5 g/dL (31.8-35.4); Mean Corpuscular Hemoglobin 28.2 pg (27.0-31.2); Mean Corpuscular Volume 92.5 fl (81-99); Mean Platelet Volume 9.3 fl (7.4-10.4); Monocytes # 0.4 K/mm3 (0.1-1.0); Monocytes % 4.9 % (1.7-9.3); Neutrophils # 6.1 K/mm3 (1.8-7.8); Neutrophils % 77.3 % (37.0-80.0); Platelet Count 189 K/mm3 (142-424); Red Blood Count 3.62 M/mm3 (4.20-5.40); Red Cell Distribution Width 15.8 % (11.5-17.5); White Blood Count 7.9 K/mm3 (4.8-10.8)
[2024-01-14 07:38] LABS: Magnesium 1.9 mg/dl (1.6-2.3)
--- NOTE | 2024-01-14 07:56 | P.DS_ITS ---
General Admission date:: 01/10/24 Discharge date: 01/14/24 HPI HPI HPI: Mrs. Osullivan is an 88-year-old female with dementia and residential patient. She presented yesterday to the emergency department with vomiting. I was notified by the ED Dr. Crook due to abnormal liver chemistries and abnormal CT scan. The patient also had a white blood cell count of greater than 20,000. She does have a prior history of C. difficile with last episode in June 2021 but also had C. difficile in August 2019. The patient's recent labs also showed a spike in her liver chemistries with AST on admission greater than 1500 and ALT at 813. Her alkaline phosphatase was 318 with total bilirubin 1.5. The patient had a wide pulse pressure with some hypotension. Her CT imaging showed hepatic steatosis and status postcholecystectomy. She had some pancreatic atrophy. The biliary system was upper limits of normal but the patient is postcholecystectomy. There was some colonic wall thickening with pericolonic edema and inflamed diverticulum involving the descending/sigmoid colon consistent with acute diverticulitis. Interestingly, the patient has had no symptoms overnight and this morning. The nurse reports no abdominal pain, nausea, vomiting or fever. Her CT scan of the abdomen in June 2021 showed a possible abnormal density within a dilated extrahepatic common bile duct suspicious of choledocholithiasis. Her ultrasound at that time showed normal biliary system. At that time she had some pancreatitis. Patient is a 88-year-old female who resides at [facility], with past medical history COPD on 2 L nasal cannula, hypertension hyperlipidemia who presents to the hospital due to vomiting. On further evaluation patient was found to have biliary duct dilation, concerning for bile duct obstruction, my evaluation patient does not remember why she is in the hospital, she is very poor historian. Patient did not report chest pain shortness of breath. CT abdomen pelvis was performed which did show possible sigmoid colon diverticulitis and cystitis. Hospital Course Hospital Course Hospital Course: Ms. Osullivan is an 88-year-old female who resides at [facility]. She has a past medical history COPD on 2 L nasal cannula, hypertension hyperlipidemia who presents to the hospital due to vomiting. Presented with concerns for sepsis including tachycardia, leukocytosis, abnormal urine and diverticulitis on imaging. Also found to have biliary ductal dilatation. MRI obtained today, per my review shows ductal dilatation. Formal read reports intraductal stones. Cardiology and gastroenterology assisted with care during admission. Patient is shown significant improvement in her symptoms from sepsis. Organ function normalizing. Stable to discharge back to residential for continued management. Problems addressed as follows: # Septic shock #Acute diverticulitis # Morganella bacteremia # UTI # Choledocholithiasis/shock liver -Presented with septic shock and multiorgan dysfunction. White count elevated at 20,000 on arrival. Was treated empirically with broad-spectrum antibiotics including cefepime and Flagyl. Workup initially showed concern for UTI, urine grew E. coli. Sensitive to cephalosporins, ertapenem, and doxycycline. Continue IV cefepime 2 g every 12hours along with Flagyl 500 mg 3 times a day IV during admission. Also found to have positive blood cultures for Morganella sensitive to ertapenem. CT of her abdomen positive for diverticulitis. Found to have ductal stones in her common bile duct on MRCP obtained 01/11. GI was consulted to assist with care. She was taken on 01/12 for ERCP with GI, numerous stones removed from common bile duct. Stent placed. GI recommends follow-up in the coming weeks for evaluation, and repeat ERCP with removal of stent in 3 months. Patient's liver enzymes showed significant improvement with AST originally greater than 1500, improved to bilirubin of 1, AST 62, ALT 123 and alk phos 162 on day of discharge. Tolerating p.o. intake with no abdominal pain. White count remained normal for over 48 hours. Afebrile for over 48 hours. Will complete 10 days of antibiotics total with ertapenem 1 g IM. Needs 5 more doses after discharge. Decision made with family not to place PICC line or midline due to patient's dementia and picking at things on her body. Concern it would be more problematic than beneficial. #Elevated troponin in the setting of acute illness #History of mild nonflow limiting CAD #Acute myocardial injury #Known left bundle branch block - Troponin trended up to 0.3 in the setting of acute illness. No chest pain at this time. EKG without acute ischemic changes noted. Echo report normal LV systolic function, increased LV wall thickness, grade 2 diastolic dysfunction. Patient had left heart catheterization 11/2020: Mild nonflow limiting coronary disease with a normal ejection fraction and severely elevated LVEDP consistent with diastolic dysfunction. Cardiology consulted, No plan for intervention at this time. Continue medical management with aspirin and Plavix. #Hypertension: Patient hypotensive on arrival. Holding home blood pressure medications/diuretics at this time. Reevaluate need as an outpatient Total time spent on discharge 32 minutes in counseling, documentation, chart review, and direct care with patient. Exam Data for Last 24 hours Vital signs and Labs for Last 24 Hours: Temp Pulse Resp BP Pulse Ox O2 Del Method O2 Flow Rate 98.2 F 72 18 136/60 96 Nasal Cannula 1 01/14/24 04:00 01/14/24 04:00 01/14/24 04:00 01/14/24 04:00 01/14/24 04:00 01/14/24 06:54 01/14/24 06:54 Laboratory Results - last 24 hr 01/13/24 05:21: ESR 39 H 01/13/24 19:46: POC Glucose 185 H 01/14/24 05:38: WBC 7.9, RBC 3.62 L, Hgb 10.2 L, Hct 33.5 L, MCV 92.5, MCH 28.2, MCHC 30.5 L, RDW 15.8, Plt Count 189, MPV 9.3, Neut % (Auto) 77.3, Lymph % (Auto) 17.2, [place] % (Auto) 4.9, Eos % (Auto) 0.4, Baso % (Auto) 0.1, Neut # (Auto) 6.1, Lymph # (Auto) 1.4, Swift # (Auto) 0.4, Eos # (Auto) 0.0, Baso # (Auto) 0.0, Sodium 138, Potassium 3.9, Chloride 114 H, Carbon Dioxide 21 L, Anion Gap 6.9, BUN 15, Creatinine 0.70, Estimated Creat Clear 43, Estimated GFR 79, Est GFR ( Amer) 96, Glucose 87, Calcium 8.1 L, Magnesium 1.9, Total Bilirubin 1.0, AST 62 H D, ALT 123 H D, Alkaline Phosphatase 162 H, Total Protein 5.1 L, Albumin 2.6 L, Globulin 2.5, Albumin/Globulin Ratio 1.0 L I & O for Last 24 hours: Intake & Output 01/11/24 01/12/24 01/13/24 01/14/24 23:59 23:59 23:59 23:59 Intake Total 880 / 880 1738 / 1838 500 / 1350 850 / 850 Output Total 0 / 0 Balance 880 / 880 1738 / 1838 500 / 1350 850 / 850 Weight 62.142 kg 64.637 kg 68.81 kg 70.806 kg Microbiology Reports for the Last 24 Hours: Microbiology 01/10/24 16:40 Blood Blood Culture - Preliminary 01/10/24 16:40 Blood Blood Culture - Final Morganella morganii Constitutional Constitutional: no acute distress, average body habitus, chronically ill appearing and cooperative *Routine HEENT Exam Head: Present normocephalic Eye: Present EOMI and PERRL ENT: Present mucous membranes moist *Routine Neck Exam Neck: Present supple; Absent lymphadenopathy *Routine Respiratory Exam Respiratory: Present CTA bilaterally; Absent rhonchi, wheezes or crackles *Routine Cardiovascular Exam Cardiovascular: Present RRR *Routine Abdominal Exam Abdominal: Present soft and normoactive bowel sounds; Absent tenderness *Routine Rectal Exam Patient deferred: visual exam *Routine Exam Patient deferred: external exam *Routine Extremities Exam Extremities: Absent cyanosis, clubbing or edema *Routine Skin Exam Skin: Present warm; Absent rash *Routine Neurological Exam Neurological: Present alert and moving all extremities; Absent altered mental status Comments: Oriented to self, baseline mentation Results Data Completed and Pending Labs on day of discharge: Labs from last 24 hours 01/14/24 01/13/24 01/13/24 05:38 19:46 05:21 WBC 7.9 RBC 3.62 L Hgb 10.2 L Hct 33.5 L MCV 92.5 MCH 28.2 MCHC 30.5 L RDW 15.8 Plt Count 189 MPV 9.3 Neut % (Auto) 77.3 Lymph % (Auto) 17.2 Swift % (Auto) 4.9 Eos % (Auto) 0.4 Baso % (Auto) 0.1 Neut # (Auto) 6.1 Lymph # (Auto) 1.4 Swift # (Auto) 0.4 Eos # (Auto) 0.0 Baso # (Auto) 0.0 ESR 39 H Sodium 138 Potassium 3.9 Chloride 114 H Carbon Dioxide 21 L Anion Gap 6.9 BUN 15 Creatinine 0.70 Estimated Creat Clear 43 Estimated GFR 79 Est GFR ( Amer) 96 Glucose 87 POC Glucose 185 H Calcium 8.1 L Magnesium 1.9 Total Bilirubin 1.0 AST 62 H D ALT 123 H D Alkaline Phosphatase 162 H Total Protein 5.1 L Albumin 2.6 L Globulin 2.5 Albumin/Globulin Ratio 1.0 L Preliminary micro results at discharge 01/10/24 16:40 Blood Culture - Preliminary Blood DS: Diagnosis Discharge Diagnosis (1) Septic shock: Status: Acute Code(s): A41.9 - Sepsis, unspecified organism; R65.21 - Severe sepsis with septic shock Problem details: Present on admission. (2) Acute hepatitis: Status: Acute Code(s): B17.9 - Acute viral hepatitis, unspecified (3) Diverticulitis: Status: Acute Code(s): K57.92 - Diverticulitis of intestine, part unspecified, without perforation or abscess without bleeding (4) Myocardial injury: Status: Acute Code(s): I5A - Non-ischemic myocardial injury (non-traumatic) (5) UTI (urinary tract infection): Status: Acute Code(s): N39.0 - Urinary tract infection, site not specified Qualifiers: Hematuria presence: without hematuria Urinary tract infection type: site unspecified Qualified Code(s): N39.0 - Urinary tract infection, site not specified Problem details: recent E. coli infection sensitive to and treated with Nitrofurantoin--now asymptomatic (6) Choledocholithiasis: Status: Acute Code(s): K80.50 - Calculus of bile duct without cholangitis or cholecystitis without obstruction (7) Non-STEMI (non-ST elevated myocardial infarction): Status: Acute Code(s): I21.4 - Non-ST elevation (NSTEMI) myocardial infarction (8) CAD (coronary artery disease): Status: Chronic Code(s): I25.10 - Atherosclerotic heart disease of minto coronary artery without angina pectoris Qualifiers: Associated angina: without angina Coronary Disease-Associated Artery/Lesion type: minto artery [place] vs. transplanted heart: minto heart Qualified Code(s): I25.10 - Atherosclerotic heart disease of minto coronary artery without angina pectoris (9) Dementia: Status: Chronic Code(s): F03.90 - Unspecified dementia, unspecified severity, without behavioral disturbance, psychotic disturbance, mood disturbance, and anxiety Qualifiers: Dementia behavioral disturbance: without behavioral disturbance Dementia type: associated with other underlying disease Qualified Code(s): F02.80 - Dementia in other diseases classified elsewhere without behavioral disturbance (10) Hyperlipidemia: Status: Chronic Code(s): E78.5 - Hyperlipidemia, unspecified Qualifiers: Hyperlipidemia type: mixed hyperlipidemia Qualified Code(s): E78.2 - Mixed hyperlipidemia (11) Hypertension: Status: Chronic Code(s): I10 - Essential (primary) hypertension Qualifiers: Hypertension type: primary hypertension Qualified Code(s): I10 - Essential (primary) hypertension Problem details: well-controlled Meds Home Medications and Allergies Home Medications ?Medication ?Instructions ?Recorded ?Confirmed ?Type acetaminophen 500 mg tablet 1,000 mg PO Q4HP PRN Mild 12/11/19 01/11/24 History (Tylenol Extra Strength) Pain,Fever,Headache bisacodyl 10 mg rectal suppository 10 mg TX DAILYP PRN Constipation 12/11/19 01/11/24 History docusate sodium 250 mg capsule 250 mg PO DAILY 12/11/19 01/11/24 History melatonin 3 mg capsule 3 mg PO HS 12/11/19 01/11/24 History ondansetron HCl 4 mg tablet 4 mg PO Q6HP PRN Nausea And 12/11/19 01/11/24 History (Zofran) Vomiting furosemide 40 mg tablet 40 mg PO DAILY 04/18/21 01/11/24 History spironolactone 25 mg tablet 25 mg PO DAILY 04/18/21 01/11/24 History aspirin 81 mg chewable tablet 81 mg PO DAILY 07/20/21 01/11/24 History clopidogrel 75 mg tablet 75 mg PO DAILY 07/20/21 01/11/24 History sertraline 50 mg tablet 50 mg PO DAILY 07/20/21 01/11/24 History benzonatate 100 mg capsule 100 mg PO TID PRN Cough 01/13/23 01/11/24 History prednisone 10 mg tablet 10 mg PO DAILY 01/13/23 01/11/24 History sodium chloride 0.65 % nasal spray 1 spray intranasal BID 02/27/23 01/11/24 History aerosol (Deep Sea Nasal) gabapentin 100 mg capsule 100 mg PO BID 01/11/24 01/11/24 History guaifenesin 100 mg/5 mL oral 200 mg PO Q6H PRN Congestion 01/11/24 01/11/24 History liquid (Radha-Tussin) hydrocodone 5 mg-acetaminophen 325 1 tab PO BID 01/11/24 01/11/24 History mg tablet ropinirole 2 mg tablet 2 mg PO BID 01/11/24 01/11/24 History sertraline 25 mg tablet 25 mg PO DAILY 01/11/24 01/11/24 History ertapenem 1 gram solution for 1 g IM DAILY #5 ea 01/14/24 Rx injection New Prescriptions to Start Prescriptions: Keo Alcazar Allergies Allergy/AdvReac Type Severity Reaction Status Date / Time alendronate sodium Allergy Unknown Verified 12/28/23 21:01 [From Fosamax] NSAIDS (Non-Steroidal Allergy Unknown Verified 12/28/23 21:01 Anti-Inflamma Penicillins Allergy Unknown Verified 12/28/23 21:01 Discharge Plan Disposition Patient Disposition: er Intermediate Care Fac Condition: Fair Discharge Order Discharge Orders: Discharge Order (Routine); Ordered 01/14/24 Ordered By: Keo Tran Follow up Plan Follow up with: Mode Perez II, MD [Staff Physician] - Enter time for follow up Hermann Ochoa MD [Staff Physician] - Enter time for follow up Prescriptions/Medication Reconciliation: New ertapenem 1 gram recon soln 1 g IM DAILY Qty: 5 0RF Rx Instructions: first dose 01/14, last dose 01/18 Continued acetaminophen [Tylenol Extra Strength] 500 mg tablet 1,000 mg PO Q4HP PRN (Reason: Mild Pain,Fever,Headache) bisacodyl 10 mg suppository 10 mg RC DAILYP PRN (Reason: Constipation) ondansetron HCl [Zofran] 4 mg tablet 4 mg PO Q6HP PRN (Reason: Nausea And Vomiting) docusate sodium 250 mg capsule 250 mg PO DAILY melatonin 3 mg capsule 3 mg PO HS Deep Sea Nasal 0.65 % aerosol,spray 1 spray intranasal BID ropinirole 2 mg tablet 2 mg PO BID sertraline 25 mg tablet 25 mg PO DAILY Rx Instructions: Give with 50mg tablet to make 75mg dose hydrocodone-acetaminophen 5-325 mg tablet 1 tab PO BID gabapentin 100 mg capsule 100 mg PO BID guaifenesin [Radha-Tussin] 100 mg/5 mL Liquid 200 mg PO Q6H PRN (Reason: Congestion) clopidogrel 75 MG tablet 75 mg PO DAILY aspirin 81 MG tablet,chewable 81 mg PO DAILY sertraline 50 MG tablet 50 mg PO DAILY Rx Instructions: Give with 25mg tablet to make 75mg dose prednisone 10 mg Tablet 10 mg PO DAILY benzonatate 100 mg Capsule 100 mg PO TID PRN (Reason: Cough) Held furosemide 40 MG tablet 40 mg PO DAILY Hold Instructions: pending evaluation at nursing facility and BP checks spironolactone 25 MG tablet 25 mg PO DAILY Hold Instructions: pending evaluation at nursing facility and BP checks Problem Reconciliation Problems Reviewed?: Yes Patient Discharge Instructions ACTIVITY: Continue current activity DIET: continue same diet Patient Instructions: DI for Urinary Tract Infection (UTI), DI for Sepsis -- Adult Print Language: Grenadian Providers Primary Care Provider: Robin Hay Admgabi Provider: Allie Nur Attending Provider: Allie Nur
[2024-01-14 08:00] VITALS: BP 128/61; PULSE 74; RESP 18; TEMP 36.8; O2SAT 95
[2024-01-14 08:07] LABS: Lipase 26 U/L (23-300)
[2024-01-14] MEDS: ASPIRIN 81MG CHEWABLE TABLET 81 MG PO (08:40)
[2024-01-14] MEDS: SERTRALINE 50MG TABLET 75 MG PO (08:40)
[2024-01-14] MEDS: ROPINIROLE 1MG TABLET 2 MG PO (08:41)
[2024-01-14] MEDS: CLOPIDOGREL 75MG TAB 75 MG PO (08:41)
[2024-01-14] MEDS: predniSONE 10MG TAB 10 MG PO (08:41)
[2024-01-14] MEDS: GABAPENTIN 100MG CAPSULE 100 MG PO (08:42)
[2024-01-14] MEDS: ERTAPENEM SODIUM 1 GM in 0.9 % SODIUM CHLORIDE 50 ML IV (08:42)
[2024-01-14] MEDS: HYDROCODONE/APAP 5/325 MG TABLET 1 TAB PO (08:43)
[2024-01-14 09:04] VITALS: O2SAT 91
--- NOTE | 2024-01-14 09:48 | P.PN_ITS ---
Subjective *Date: 01/14/24 *Time: 09:48 Medical Exam Vital signs and Labs for Last 24 Hours: Vital Signs Temp Pulse Pulse Resp BP BP Pulse Ox 01/14/24 09:04 91 L 01/14/24 08:00 98.2 F 74 18 128/61 95 01/14/24 06:54 01/14/24 05:00 01/14/24 04:00 98.2 F 72 18 136/60 96 01/14/24 03:00 01/14/24 01:00 01/14/24 00:00 98.5 F 75 18 132/68 90 L 01/13/24 23:00 01/13/24 21:17 01/13/24 21:00 01/13/24 20:00 01/13/24 20:00 97.4 F L 81 16 120/49 L 98 01/13/24 18:10 73 18 134/62 97 01/13/24 17:10 16 139/65 97 01/13/24 16:10 72 16 133/65 95 01/13/24 15:40 80 16 132/70 95 01/13/24 15:10 97.4 F L 77 18 140/77 96 01/13/24 15:00 01/13/24 14:55 97.4 F L 75 16 138/66 94 L 01/13/24 14:40 97.7 F 76 16 134/54 L 97 01/13/24 14:25 97.8 F 76 14 138/54 L 94 L 01/13/24 14:10 97.4 F L 82 16 146/80 H 98 01/13/24 14:00 97.5 F L 73 16 124/61 96 01/13/24 13:50 97.5 F L 71 16 114/56 L 96 01/13/24 13:40 97.5 F L 70 16 118/53 L 96 01/13/24 13:35 97.5 F L 74 16 116/51 L 01/13/24 13:30 97.5 F L 74 16 116/51 L 96 01/13/24 11:38 98.9 F 69 19 129/61 97 O2 Del Method O2 Flow Rate 01/14/24 09:04 Room Air 01/14/24 08:00 Nasal Cannula 1 01/14/24 06:54 Nasal Cannula 1 01/14/24 05:00 Nasal Cannula 1 01/14/24 04:00 Nasal Cannula 1 01/14/24 03:00 Nasal Cannula 1 01/14/24 01:00 Nasal Cannula 1 01/14/24 00:00 Nasal Cannula 1 01/13/24 23:00 Nasal Cannula 1 01/13/24 21:17 Nasal Cannula 1 01/13/24 21:00 Nasal Cannula 1 01/13/24 20:00 Nasal Cannula 1 01/13/24 20:00 Nasal Cannula 1 01/13/24 18:10 01/13/24 17:10 01/13/24 16:10 01/13/24 15:40 Nasal Cannula 2 01/13/24 15:10 Nasal Cannula 2 01/13/24 15:00 Nasal Cannula 2 01/13/24 14:55 Nasal Cannula 2 01/13/24 14:40 Nasal Cannula 2 01/13/24 14:25 Nasal Cannula 2 01/13/24 14:10 Nasal Cannula 2 01/13/24 14:00 Nasal Cannula 2 01/13/24 13:50 Nasal Cannula 2 01/13/24 13:40 Nasal Cannula 2 01/13/24 13:35 01/13/24 13:30 Nasal Cannula 2 01/13/24 11:38 Nasal Cannula 1 Intake and Output 01/13/24 01/14/24 01/14/24 23:59 07:59 15:59 Intake Total 0 / 1350 850 / 985 135 / 985 Balance 0 / 1350 850 / 985 135 / 985 Intake: Intake, Oral Amount 0 / 300 300 / 435 135 / 435 Intake, Total IV Amount 550 / 550 0.9 % Sodium Chloride 1000ML 1, 450 / 450 000 ml @ 75 mls/hr IV .[id number] SRINIVASA Rx#:[id number] Metronidaz/Sod Chl 500 mg In 100 / 100 100 ml @ 100 mls/hr IV TID SRINIVASA Rx#:[id number] Other: Number of Unmeasured Voids 1 1 Number of Bowel Movements 1 1 Weight 70.806 kg Patient Weight 01/14/24 23:59 Weight 70.806 kg Laboratory Results - last 24 hr 01/13/24 19:46: POC Glucose 185 H 01/14/24 05:38: WBC 7.9, RBC 3.62 L, Hgb 10.2 L, Hct 33.5 L, MCV 92.5, MCH 28.2, MCHC 30.5 L, RDW 15.8, Plt Count 189, MPV 9.3, Neut % (Auto) 77.3, Lymph % (Auto) 17.2, [place] % (Auto) 4.9, Eos % (Auto) 0.4, Baso % (Auto) 0.1, Neut # (Auto) 6.1, Lymph # (Auto) 1.4, [place] # (Auto) 0.4, Eos # (Auto) 0.0, Baso # (Auto) 0.0, Sodium 138, Potassium 3.9, Chloride 114 H, Carbon Dioxide 21 L, Anion Gap 6.9, BUN 15, Creatinine 0.70, Estimated Creat Clear 43, Estimated GFR 79, Est GFR ( Amer) 96, Glucose 87, Calcium 8.1 L, Magnesium 1.9, Total Bilirubin 1.0, AST 62 H D, ALT 123 H D, Alkaline Phosphatase 162 H, Total Protein 5.1 L, Albumin 2.6 L, Globulin 2.5, Albumin/Globulin Ratio 1.0 L, Lipase 26 I & O for Labs for Last 24 Hours: Intake & Output 01/11/24 01/12/24 01/13/24 01/14/24 23:59 23:59 23:59 23:59 Intake Total 880 / 880 1738 / 1838 500 / 1350 985 / 985 Output Total 0 / 0 Balance 880 / 880 1738 / 1838 500 / 1350 985 / 985 Weight 62.142 kg 64.637 kg 68.81 kg 70.806 kg Microbiology Reports for the Last 24 Hours: Microbiology 01/10/24 16:40 Blood Blood Culture - Final Escherichia coli 01/10/24 16:40 Blood Blood Culture - Final Morganella morganii The patient's infection will respond to the chosen ABx?: Yes Is the patient receiving the right drug, dose, and route?: Yes Could a more targeted ABx be ordered?: No (WBC WNL NOW, AFEBRILE)
[2024-01-14] MEDS: ONDANSETRON 4MG/2ML VIAL 4 MG IV (10:02)
== END 2024-01-14 11:29 | DRG 444 ==
LOC: ER 19:01 → 2ND 01-11 02:34
PROVIDERS: Internal Medicine Adolescent Medicine; Internal Medicine Gastroenterology; Student in an Organized Health Care Education/Training Program; Admitting Provider Internal Medicine; Emergency Provider Emergency Medicine; PCP Family Medicine; Visit Provider Internal Medicine
PROC: 0F798DZ Dilation of Common Bile Duct with Intraluminal Device, Via Natural or Artificial Opening Endoscopic (ICD-10-PCS; principal; 2024-01-13 11:20)
DX: K72.00 Acute and subacute hepatic failure without coma (principal); B17.9 Acute viral hepatitis, unspecified; K57.32 Diverticulitis of large intestine without perforation or abscess without bleeding; I5A Non-ischemic myocardial injury (non-traumatic); K80.50 Calculus of bile duct without cholangitis or cholecystitis without obstruction; R78.81 Bacteremia; N39.0 Urinary tract infection, site not specified; I25.10 Atherosclerotic heart disease of native coronary artery without angina pectoris; E78.2 Mixed hyperlipidemia; J44.9 Chronic obstructive pulmonary disease, unspecified; I10 Essential (primary) hypertension; Z79.899 Other long term (current) drug therapy; Z99.81 Dependence on supplemental oxygen; I44.7 Left bundle-branch block, unspecified; B96.4 Proteus (mirabilis) (morganii) as the cause of diseases classified elsewhere; B96.20 Unspecified Escherichia coli [E. coli] as the cause of diseases classified elsewhere; F03.90 Unspecified dementia, unspecified severity, without behavioral disturbance, psychotic disturbance, mood disturbance, and anxiety
CPT/HCPCS: 36415; 74177; 74183; 74330; 76376; 80053; 81001; 82962; 83605; 83690; 83735; 84484; 85007; 85025; 85610; 85651; 85730; 86140; 86803; 87040; 87077; 87086; 87088; 87186; 87389; 93005; 93306; 94761; 99291; A9576; C1889; C2617; J1171; J1335; J1644; J2405; J7030; J7120; Q9967

== ENCOUNTER 2024-02-09 15:13 | Outpatient (CLI) | payer MEDICARE, MEDICAID, SELFPAY ==
[2024-02-09 15:40] LABS: Basophils % 0.3 % (0.1-2.0); Eosinophils % 0.3 % (0.1-12.0); Hematocrit 36.9 % (37.0-47.0); Lymphocytes # 1.7 K/mm3 (0.7-4.5); Lymphocytes % 13.3 % (10-50); Mean Corpuscular HGB Conc 32.6 g/dL (31.8-35.4); Mean Corpuscular Hemoglobin 28.3 pg (27.0-31.2); Mean Corpuscular Volume 86.8 fl (81-99); Mean Platelet Volume 8.3 fl (7.4-10.4); Monocytes # 0.5 K/mm3 (0.1-1.0); Monocytes % 3.8 % (1.7-9.3); Neutrophils # 10.3 K/mm3 (1.8-7.8); Neutrophils % 82.3 % (37.0-80.0); Platelet Count 293 K/mm3 (142-424); Red Blood Count 4.25 M/mm3 (4.20-5.40); Red Cell Distribution Width 16.2 % (11.5-17.5); White Blood Count 12.6 K/mm3 (4.8-10.8)
[2024-02-09 16:00] LABS: Albumin Level 3.6 g/dl (3.5-5.0); Chloride 107 mmol/L (98-107); Potassium 5.1 mmoL/L (3.5-5.1); Sodium 140 mmol/L (136-145)
[2024-02-09 16:03] LABS: Alanine Aminotransferase 32 U/L (12-78); Albumin/Globulin Ratio 1.6 (1.1-1.8); Alkaline Phosphatase 175 U/L (38-126); Anion Gap 13.1 mEq/L (5-15); Aspartate Amino Transferase 47 U/L (14-36); Bilirubin,Total 0.6 mg/dl (0.2-1.3); Blood Urea Nitrogen 25 mg/dl (7-17); Carbon Dioxide 25 mmol/L (22.0-30.0); Estimated Glomerular Filt Rate 79 ml/min (>60); GFR (African American) 96 ML/MIN (>60); Globulin 2.2 g/dL (1.3-3.2); Total Protein,Serum 5.8 g/dl (6.3-8.2)
[2024-02-09 16:04] LABS: Calcium 8.9 mg/dl (8.4-10.2); Glucose 134 mg/dl (74-100)
== END 2024-02-09 23:59 | disposition home or self-care (01) ==
LOC: LAB 15:16
PROVIDERS: PCP Family Medicine; Visit Provider Internal Medicine Gastroenterology
DX: K74.69 Other cirrhosis of liver (principal); B19.20 Unspecified viral hepatitis C without hepatic coma; K80.50 Calculus of bile duct without cholangitis or cholecystitis without obstruction; R74.8 Abnormal levels of other serum enzymes
CPT/HCPCS: 36415; 80053; 85025

== ENCOUNTER 2024-04-11 01:31 | Inpatient (IN) | payer MEDICARE, MEDICAID, SELFPAY ==
[2024-04-11] VITALS (53 sets, daily range): BP systolic 81–262; BP diastolic 42–202; PULSE 83–105; RESP 12–28; TEMP 36.4–37.3; O2SAT 75–99; BMI 33.2; BMI 27.5
--- NOTE | 2024-04-11 01:31 | XR_ITS ---
PROCEDURE INFORMATION: Exam: XR Chest Exam date and time: 04/11/2024 1:27 AM Age: 88 years old Clinical indication: Shortness of breath; Additional info: SOA TECHNIQUE: Imaging protocol: Radiologic exam of the chest. Views: 1 view. COMPARISON: CR XR CHEST PORTABLE 07/19/2021 2:49 PM FINDINGS: Lungs: There is diffuse mild peripheral interstitial prominence consistent with chronic disease. Focal airspace disease in the right perihilar region may represent a small infiltrate or atelectasis. Left retrocardiac airspace disease cannot entirely be excluded. Pleural spaces: Unremarkable. No pleural effusion. No pneumothorax. Heart/Mediastinum: Unremarkable. No cardiomegaly. Vasculature: Unremarkable. Diaphragm: Again noted is elevation of the right hemidiaphragm. Bones/joints: There are severe degenerative changes of both shoulders. IMPRESSION: Chronic peripheral interstitial lung disease. Right perihilar atelectasis and/or infiltrate. Left retrocardiac region is incompletely evaluated.
--- NOTE | 2024-04-11 01:32 | ECG_ITS ---
APPROVED REPORT Exam: Resting ECG HR:91 bpm ECG Measurements Heart Rate 91 AXES FL 80 P -27 QRSd 140 QRS -19 QT 369 T 135 QTc 418 Conclusion SINUS RHYTHM WITH SHORT FL INTERVAL LEFT BUNDLE BRANCH BLOCK [120+ ms QRS DURATION, 80+ ms Q/S IN V1/V2, 85+ ms R IN I/aVL/V5/V6] ABNORMAL ECG UNCONFIRMED REPORT Electronically signed by : Robin Carvajal MD 04/12/2024 19:20:20
--- NOTE | 2024-04-11 01:32 | CT_ITS ---
FINAL REPORT TECHNIQUE: thin section axial CT with and without IV contrast supplemented with multiplanar 3-D reconstruction of the head. This study was performed with techniques to keep radiation doses as low as reasonably achievable, (ALARA)individualized dose reduction techniques using automated exposure control or adjustment of mA and/or kV according to the patient's size were employed. CLINICAL HISTORY: possible stroke COMPARISON: None FINDINGS: HEAD CT: The ventricles are normal in size. There is no evidence of hemorrhage. No masses are identified. No extra-axial fluid is seen. CTA: The cranial circulation is unremarkable. There is no significant stenosis, aneurysm or occlusion. IMPRESSION: No acute process. Reviewed, Interpreted and Dictated by Samir Vance MD Transcribed by Tanna Byers Authenticated and [facility]
--- NOTE | 2024-04-11 01:32 | CT_ITS ---
FINAL REPORT TECHNIQUE: NASCET technique utilized for stenosis evaluation. CLINICAL HISTORY: possible stroke COMPARISON: None FINDINGS: Note is made of bilateral pleural effusions, greater on the right than on the left. There is consolidation in the posterior right upper lobe. There is also asymmetric enlargement of the right thyroid lobe, likely related to multinodular goiter. RIGHT CAROTID: There are moderate vascular calcifications in the carotid bifurcation. However, no significant stenosis is seen of the cervical common or internal carotid artery. LEFT CAROTID: There are moderate vascular calcifications in the carotid bifurcation. However, no significant stenosis seen of the cervical common or internal carotid artery. VERTEBRALS: The vertebrals are patent and codominant. No significant stenosis is present. IMPRESSION: No significant arterial abnormality. Bilateral pleural effusions are present, greater on the left than on the right, with consolidation in the posterior right upper lobe. Asymmetric enlargement of the right thyroid lobe, most likely multinodular goiter. Reviewed, Interpreted and Dictated by Samir Vance MD Transcribed by Tanna Byers Authenticated and [facility]
--- NOTE | 2024-04-11 01:40 | PC.NURSE ---
Due to patient's mental capacity NIH is unable to be obtained accurately. Per MD NIH scale that could be resulted is 19. GCS of 7 on arrival. Family was called on arrival and confirmed code status. DNR/DNI per usp paperwork. POA confirmed code status. MD ordered head CT per stroke protocol and patient was unable to be safety transferred to CT. Head CT was cancelled per MD. Chest xray at bedside. Patient was placed on Vapotherm 30L/100%.
[2024-04-11] MEDS: METHYLPREDNISOLONE SOD SUCC 125MG VIAL 125 MG IV (01:42)
[2024-04-11] MEDS: FUROSEMIDE 40MG/4ML VIAL 80 MG IV (01:42)
[2024-04-11 01:54] LABS: VBG Base Excess -11.3 mmol/L (-2.4-2.3); VBG HCO3 18.6 mmol/L (23-30); VBG Oxygen Saturation 87.4 % (50-70); VBG Total CO2 20.6 mmol/L (23-27)
[2024-04-11 01:55] LABS: Lactate Venous 5.5 mmol/L (0.4-2.0); VBG PCO2 63.4 mmol/L (35-51); VBG PH 7.09 mmol/L (7.31-7.41)
[2024-04-11 02:02] LABS: White Blood Count 22.7 K/mm3 (4.8-10.8)
[2024-04-11 02:03] LABS: Hematocrit 41.9 % (37.0-47.0); Hemoglobin 11.6 g/dL (12.2-16.2); Lymphocytes % 55.7 % (10-50); Mean Corpuscular HGB Conc 27.7 g/dL (31.8-35.4); Mean Corpuscular Hemoglobin 25.7 pg (27.0-31.2); Mean Corpuscular Volume 92.9 fl (81-99); Mean Platelet Volume 11.1 fl (7.4-10.4); Monocytes % 7.9 % (1.7-9.3); Neutrophils % 34.5 % (37.0-80.0); Platelet Count 241 K/mm3 (142-424); Red Blood Count 4.51 M/mm3 (4.20-5.40); Red Cell Distribution Width 15.9 % (11.5-17.5)
[2024-04-11 02:04] LABS: Basophils # 0.1 K/mm3 (0-0.2); Basophils % 0.3 % (0.1-2.0); Eosinophils # 0.2 K/mm3 (0.0-0.4); Eosinophils % 0.8 % (0.1-12.0); Lymphocytes # 12.6 K/mm3 (0.7-4.5); Monocytes # 1.8 K/mm3 (0.1-1.0); Neutrophils # 7.8 K/mm3 (1.8-7.8)
[2024-04-11 02:04] LABS: Chol/HDL Ratio 4.8 (1-3.5); Cholesterol 168 mg/dl (140-200); HDL Cholesterol 35 mg/dl (40-60); Triglycerides 146 mg/dl (30-150); VLDL Cholesterol 29 mg/dL (0-40)
[2024-04-11 02:05] LABS: Alanine Aminotransferase 42 U/L (12-78); Albumin Level 3.7 g/dl (3.5-5.0); Albumin/Globulin Ratio 1.5 (1.1-1.8); Alkaline Phosphatase 125 U/L (38-126); Aspartate Amino Transferase 83 U/L (14-36); Bilirubin,Total 0.3 mg/dl (0.2-1.3); Blood Urea Nitrogen 20 mg/dl (7-17); Calcium 8.5 mg/dl (8.4-10.2); Carbon Dioxide 22 mmol/L (22.0-30.0); Chloride 104 mmol/L (98-107); Creatinine Clearance Estimated 47 mL/min (50-200); Estimated Glomerular Filt Rate 79 ml/min (>60); GFR (African American) 96 ML/MIN (>60); Globulin 2.4 g/dL (1.3-3.2); Glucose 303 mg/dl (74-100); Potassium 4.5 mmoL/L (3.5-5.1); Total Protein,Serum 6.1 g/dl (6.3-8.2)
[2024-04-11 02:06] LABS: MANUAL DIFFERENTIAL MANUAL DIFFERENTIAL (MANUAL DIFF)
--- NOTE | 2024-04-11 02:08 | PC.NURSE ---
Patients POJonathan called; [place], but states she is on her way to the hospital.
[2024-04-11 02:09] LABS: Ethyl Alcohol < 10 mg/dl (0-10)
[2024-04-11 02:11] LABS: INR 0.93 (0.9-1.1); Prothrombin Time 10.3 seconds (10.1-12.5)
[2024-04-11 02:14] LABS: Direct LDL Cholesterol 102.53 mg/dL (100-129)
[2024-04-11 02:17] LABS: NT Pro Brain Natriuretic Pep. 3280 pg/mL (0-450); Troponin I 0.05 ng/ml (0.00-0.034)
[2024-04-11] MEDS: CEFTRIAXONE 1 GM 2 GM in 0.9 % SODIUM CHLORIDE 50 ML IV (02:20)
[2024-04-11 02:22] LABS: Anion Gap 17.5 mEq/L (5-15); Sodium 139 mmol/L (136-145)
[2024-04-11 02:36] LABS: Adenovirus,PCR Not Detected (NotDetected); Bordetella Pertussis Not Detected (NotDetected); Chlamydophila Pneumoniae, PCR Not Detected (NotDetected); Coronavirus 19, PCR Not Detected (NotDetected); Coronavirus 229E Not Detected (NotDetected); Coronavirus NL63 Not Detected (NotDetected); Coronavirus OC43 Not Detected (NotDetected); Coronovirus HKU1,PCR Not Detected (NotDetected); Human Metapneumovirus Not Detected (NotDetected); Influenza A, PCR Not Detected (NotDetected); Influenza AH3,PCR Not Detected (NotDetected); Influenza B, PCR Not Detected (NotDetected); Microscopic, Urine URINE MICROSCOPIC (MICROSCOPIC); Mycoplasma Pneumoniae, PCR Not Detected (NotDetected); Parainfluenza 1, PCR Not Detected (NotDetected); Parainfluenza 2, PCR Not Detected (NotDetected); Parainfluenza 3, PCR Not Detected (NotDetected); Parainfluenza 4, PCR Not Detected (NotDetected); Respiratory Syncytial Virus Not Detected (NotDetected); Rhinovirus/Enterovirus Not Detected (NotDetected)
[2024-04-11 02:40] LABS: Bilirubin,Urine Negative (Negative); Blood, Urine 3+ (Negative); Glucose,Urine (UA) Negative (Negative); Ketones,Urine Negative (Negative); Leukocyte Esterase,Urine 2+ (Negative); Nitrate,Urine Negative (Negative); PH,Urine 5.5 (5.0-8.5); Protein,Urine 1+ (Negative); Specific Gravity, Urine 1.025 (1.005-1.030); Urobilinogen,Urine 0.2 EU/dl (0.2)
[2024-04-11 02:45] LABS: Appearance,Urine Slightly Cloudy (Clear); Color,Urine Amber (Yellow)
[2024-04-11] MEDS: VANCOMYCIN CONSULT REQUEST 1 EACH NOTAPPLIC (02:49)
[2024-04-11 02:50] LABS: Amphetamine/Metha Screen,Urine Negative ng/ml (<1000)
[2024-04-11 02:51] LABS: Barbiturates Screen,Urine Negative ng/ml (<200)
[2024-04-11] MEDS: FUROSEMIDE 100MG/10ML VIAL 80 MG IV (02:51)
[2024-04-11 02:52] LABS: Benzodiazepines Screen,Urine Negative ng/ml (<200); Cannabinoid Screen,Urine Negative ng/ml (<50)
[2024-04-11 02:53] LABS: Cocaine Screen,Urine Negative ng/ml (<300)
[2024-04-11 02:54] LABS: Methadone Screen,Urine Negative ng/ml (<300); Opiate Screen,Urine Positive ng/ml (<300)
--- NOTE | 2024-04-11 02:54 | CT_ITS ---
FINAL REPORT TECHNIQUE: multiple axial CT images were performed from the foramen magnum to the vertex without enhancement. This study was performed with techniques to keep radiation doses as low as reasonably achievable (ALARA). Individualized dose reduction techniques using automated exposure control or adjustment of mA and/or kV according to the patient's size were employed. CLINICAL HISTORY: r/o stroke COMPARISON: 11/09/2022 FINDINGS: The ventricles are mildly enlarged. There is diffuse age-appropriate atrophy. There are subtle areas of decreased attenuation in the basal ganglia, age-indeterminate. There is no evidence of hemorrhage. No masses are identified. No extra-axial fluid is seen. IMPRESSION: Mild diffuse age-appropriate atrophy, without acute intracranial abnormality. Reviewed, Interpreted and Dictated by Samir Vance MD Transcribed by Tanna Byers Authenticated and [facility]
[2024-04-11 02:55] LABS: Amorphous Sediment,Urine 1+ /lpf; Bacteria,Urine 1+ /lpf; Phencyclidine Screen,Urine Negative ng/ml (<25); RBC,Urine TNTC #/hpf (0-3); WBC,Urine 50-100 #/hpf (0-3)
[2024-04-11] MEDS: VANCOMYCIN/WATER FOR INJ (PEG) 1.5 GM/300 ML PIGGYBACK IV (02:55)
[2024-04-11 03:00] LABS: Procalcitonin 0.063 ng/mL (0.0-2.0)
[2024-04-11 03:29] LABS: Lymphocytes % 50 % (10-50); Monocytes % 11 % (2-9); Neutrophils % 32 % (42-76); Total Cells Counted 100
--- NOTE | 2024-04-11 03:31 | PC.NURSE ---
0300 - #16Fr campuzano inserted under sterile technique. 60ml urine obtained and sent to lab. Patient cleaned, large brown soft stool noted, new depends and linen placed prior to campuzano insertion. Patient continues to have pink frothy sputum while on neb with sats in the 70's. , Castillo notified of changes, no new orders at this time. Patient also on HFNC.
[2024-04-11 03:36] LABS: Platelet Estimate Normal; RBC Morphology Normal
[2024-04-11] MEDS: MORPHINE 2MG/ML SYRINGE 2 MG IV (03:38)
[2024-04-11 04:06] LABS: Influenza AH1, PCR Not Detected (NotDetected)
[2024-04-11 04:06] LABS: HIV Combo NEGATIVE (Negative)
[2024-04-11 04:07] LABS: Influenza AH1, 2009 Detected (NotDetected)
[2024-04-11] MEDS: ALBUTEROL 0.083% 2.5 MG/3 ML NEB 20 MG IH (04:08)
[2024-04-11 04:14] LABS: Hepatitis C Ab Qual. W/ RFX NEGATIVE (Negative)
--- NOTE | 2024-04-11 04:32 | ED_ITS ---
Discharge Plan Disposition Patient Disposition: Admitted Condition: Critical Clinical Impressions Clinical Impression: Influenza A (H1N1), Acute hypoxic respiratory failure, Hypercarbia, Pulmonary edema, Acidosis, lactic, Elevated troponin Sepsis Qualifiers: Sepsis type: sepsis due to unspecified organism Sepsis acute organ dysfunction status: with acute organ dysfunction Severe sepsis acute organ dysfunction type: acute respiratory failure Acute respiratory failure type: with hypoxia Severe sepsis shock status: with septic shock Qualified Code(s): A41.9 - Sepsis, unspecified organism Pneumonia Qualifiers: Pneumonia type: due to influenza A virus Qualified Code(s): J10.00 - Influenza due to other identified influenza virus with unspecified type of pneumonia UTI (urinary tract infection) Qualifiers: Urinary tract infection type: acute cystitis Hematuria presence: without hematuria Qualified Code(s): N30.00 - Acute cystitis without hematuria Discharge ED Provider: Caesar Castillo General Chief Complaint: Shortness of Breath/Dyspnea Stated Complaint: AMS Time Seen by Provider: 04/11/24 01:42 Mode of Arrival: EMS Source of Information: Patient Limitations: No Limitations Description of Symptoms (Recalled from ER Triage Doc. by RN): Patient arrived to ED via [facility] EMS from [facility] with a call for diffuculty breathing, pt was on 2L on arrival. Patient kept telling EMS 'she could not breath. EMS reports patient was talking in route to [facility] but once they arrived here patient was not responding. Sats were stable on arrival. History of Present Illness HPI narrative: 88-year-old female presents via EMS from [facility]. EMS was initially called for shortness of breath, when they arrived she was on 2 L. Patient kept telling EMS she could not breathe and EMS reports obvious increased work of breathing. EMS reports patient was talking to them and route but by the time they arrived she was unable to speak to them anymore. She had also started having thin, frothy, bloody sputum from her mouth. EMS did not report any other deficits or other changes in route. They did not administer any medications in route. They report prior to patient stopping talking and no longer being responsive she did not have any obvious neurologic deficits. Also report patient was not complaining of pain, she was just complaining of not feeling well. Patient is DNR, DNI, this was confirmed by phone at the time of patient's arrival with patient's daughter. Patient groans to stimuli but otherwise does not contribute to history. Later in the encounter, family was able to be present at bedside and stated that patient seemed okay but under the weather the last few days. They were not able to give other specific information other than she has been fluid overloaded with her legs swollen and was receiving Lasix. Related Data Home Medications ?Medication ?Instructions ?Recorded ?Confirmed bisacodyl 10 mg rectal suppository 10 mg OH DAILYP PRN Constipation 12/11/19 04/11/24 docusate sodium 250 mg capsule 250 mg PO DAILY 12/11/19 04/11/24 melatonin 3 mg capsule 3 mg PO HS 12/11/19 04/11/24 ondansetron HCl 4 mg tablet 4 mg PO Q6HP PRN Nausea And 12/11/19 04/11/24 (Zofran) Vomiting aspirin 81 mg chewable tablet 81 mg PO DAILY 07/20/21 04/11/24 clopidogrel 75 mg tablet 75 mg PO DAILY 07/20/21 04/11/24 sertraline 50 mg tablet 50 mg PO DAILY 07/20/21 04/11/24 prednisone 10 mg tablet 10 mg PO DAILY 01/13/23 04/11/24 sodium chloride 0.65 % nasal spray 1 spray intranasal BID 02/27/23 04/11/24 aerosol (Deep Sea Nasal) guaifenesin 100 mg/5 mL oral 200 mg PO Q6H PRN Congestion 01/11/24 04/11/24 liquid (Radha-Tussin) ropinirole 2 mg tablet 2 mg PO BID 01/11/24 04/11/24 sertraline 25 mg tablet 25 mg PO DAILY 01/11/24 04/11/24 benzonatate 100 mg capsule 100 mg PO TID PRN Cough 04/05/24 04/11/24 Previous Rx's ?Medication ?Instructions ?Recorded gabapentin 100 mg capsule 100 mg PO BID #60 caps 04/06/24 hydrocodone 5 mg-acetaminophen 325 1 tab PO BID #60 tabs 04/06/24 mg tablet Allergies Allergy/AdvReac Type Severity Reaction Status Date / Time alendronate sodium (From Allergy Unknown Verified 04/05/24 09:35 Fosamax) NSAIDS (Non-Steroidal Allergy Unknown Verified 04/05/24 09:35 Anti-Inflamma Penicillins Allergy Unknown Verified 04/05/24 09:35 PFSH PFSH Disclaimer: The information contained in this section may have been updated after the patient was seen, as this information can be updated by other users. Medical History Depression Closed head injury Choledocholithiasis Diverticulitis UTI (urinary tract infection) Arthralgia of elbow, left Fall Elevated LFTs CHERRY (acute kidney injury) Thrombocytopenia Anemia Pancreatitis Renal insufficiency Bacterial infection due to Proteus mirabilis Respiratory failure with hypercapnia Obesity (BMI 30-39.9) Elevated troponin IVCD (intraventricular conduction defect) Severe sepsis with acute organ dysfunction Cough with hemoptysis COPD with acute exacerbation Respiratory failure with hypercapnia Chest pain Anemia Elevated troponin Healthcare-associated pneumonia Vomiting Scalp laceration Fall History of PA (myocardial infarction) Age-related physical debility Malaise Overactive bladder Rheumatic arteritis Gastroesophageal reflux disease Heart failure Chronic insomnia Anxiety Major depression in partial remission Dementia Hyperlipidemia Hypertension Surgical History Surgical history unknown Family History Other No significant family history Social History (Updated 04/11/24 @ 06:01 by Adelaide Archuleta RN) Smoking Status: Never smoker alcohol intake: never substance use type: denies use and other current occupational status: retired Travel in the last 8 weeks: None housing: alf Contact w/someone who lives/traveled outside [place] past 30 days?: No Exposure to someone with infectious disease in past 14 days?: No Do you have a fever (greater than 100.4 F or 38 C)?: No Have you tested positive for COVID-19: No Exposed to someone with COVID-19 in past 14 days?: No Do you have a sore throat?: No Do you have a cough?: No Do you have any weakness?: Yes Are you experiencing any nausea/vomitting?: No Do you have any diarrhea?: No Are you experiencing any unusual bleeding?: Yes Do you have any muscle aches/pain?: No Do you have any abdominal pain?: No Are you experiencing loss of taste or smell?: No Other Medical History Have you received the Flu Vaccine for this season: No Have you received the Pneumonia Vaccine: Yes (07/11/19) ROS Obtained: Yes unobtainable due to mental status Physical Exam General General appearance: alert and in distress Comment: Obviously in distress, ill-appearing, thin, frothy bloody sputum coming from the mouth Head Head exam: atraumatic and normocephalic Eye Eye exam: Present PERRL and EOMI (Patient will equally look to the sides with voice, will not follow commands to track my finger) ENT ENT exam: Present mucous membranes moist and other (Frothy bloody sputum in the mouth) Neck Neck exam: Present normal inspection and full ROM Chest Chest inspection: Present symmetric chest wall rise; Absent tenderness Respiratory Respiratory exam: Present respiratory distress, wheezes, accessory muscle use, prolonged expiratory phase and other (Tachypneic, obvious respiratory distress, minimal air movement, rhonchi, rales,); Absent stridor Cardiovascular Cardiovascular exam: Present regular rate and normal rhythm Abdominal Exam Abdominal exam: Present soft; Absent distention or tenderness Extremities Exam Extremities exam: Present full ROM and edema (2+ pitting edema bilateral lower extremity) Neurological Exam Neurological exam: Present alert, motor sensory deficit (No response to stimuli in any extremity, patient is gazing around the room) and other (GCS 7; NIH cannot be fully tested due to patient's lack of responsiveness, but NIH is at least 19) Psychiatric Psychiatric exam: Present normal affect and normal mood Skin Skin exam: Present warm and dry HEART Score HEART Score HEART Score assessment performed?: Yes History (anamnesis): Moderately suspicious ECG: Non-specific disturbance Age: >65 years Risk factors: Atherosclerosis history Troponin: 1-3x normal limit HEART Score: 7 Procedures Miscellaneous Procedure Procedure Performed: Limited lung ultrasound A focused ultrasound exam of the pleural spaces was performed to evaluate for pneumothorax, pulmonary edema, pleural effusion and/or consolidation. The ultrasound was performed with the following indications, as noted in the H&P: Shortness of breath Identified structures: Bilateral thoracic cavities were examined. Findings: Lung sliding: -Present bilaterally B-lines: Present bilaterally and anterior and posterior lung trejo Pleural effusion: Small pleural effusion questionably present on the right, absent on the left Consolidation: There appear to be small areas of consolidation in both lungs, right more than left Impression: - Pneumothorax absent bilaterally - Pleural effusion small on right - B-lines present in all lung trejo - Consolidation few small areas throughout bilaterally Images were saved to permanent archive The study was technically adequate CPT 90057-99 This study was performed by me, and I personally interpreted all images/videos. Based on my clinical judgement, these images were adequate and did not necessitate further imaging. Limited Cardiac Ultrasound Indication: Shortness of breath Identified cardiac views: [-Cardiac parasternal long axis] -view limited secondary to body habitus and poor windows [-Cardiac parasternal short axis] [-Cardiac apical four-chamber] Findings: Cardiac activity present, severely decreased left ventricular motion, no pericardial effusion appreciated, no obvious right heart strain Impression: -Cardiac activity present, severely decreased left ventricular motion, no pericardial effusion appreciated, no obvious right heart strain Images were saved to permanent archive The study was technically adequate CPT: 58623 This study was performed by me, and I personally interpreted all images/videos. Based on my clinical judgement, these images were adequate and did not necessitate further imaging. Critical Care Critical Care Time Critical Care Time: Yes Attestation: On 04/11/24, the high probability of a clinically significant, sudden or life threatening deterioration of the following system(s) (cardiac, respiratory, neuro) required my full and direct attention, intervention and personal management. The time I documented below is in addition to time spent performing reported procedures but includes the following listed in this critical care notation. Total Time Total Critical Care Time: 95 Medical Decision Making Medical Records Medical records reviewed: Yes I reviewed the patient's medical records. MR Comment: On reassessment after DuoNeb's, patient is saturating well, moving slightly better air. Reviewed patient's last discharge summary from December 2023. Patient was presented to the ER with vomiting. She had abnormal liver chemistries and leukocytosis. Patient had wide pulse pressure with hypotension, hepatic steatosis, pancreatic atrophy, diverticulitis, she was seen by GI and cardiology during admission. She had septic shock, diverticulitis, Morganella bacteremia, shock liver. Leonel Inquiry Pt receiving controlled substance: No Vital Signs Vital Signs: 04/11/24 01:31 04/11/24 02:15 04/11/24 02:27 Temperature 97.6 F Temperature Source Axillary Pulse Rate 87 86 Pulse Rate [Right Brachial] 95 H Respiratory Rate 26 H 28 H 24 Blood Pressure 169/107 H 163/72 H Blood Pressure [Right Arm] 176/85 H Blood Pressure Mean Blood Pressure Mean [Right Arm] 115 Blood Pressure Source Blood Pressure Source [Right Arm] Automatic Cuff Blood Pressure Position Blood Pressure Position [Right Arm] Supine 02 Sat by Pulse Oximetry 87 L 79 L 99 Oxygen Delivery Method Nasal Cannula Oxygen Flow Rate (LPM) 4 Fraction of Inspired Oxygen 04/11/24 02:30 04/11/24 02:45 04/11/24 03:00 Temperature Temperature Source Pulse Rate 94 H 100 H Pulse Rate [Right Brachial] Respiratory Rate 25 H 27 H 24 Blood Pressure 174/79 H 155/75 H 143/70 H Blood Pressure [Right Arm] Blood Pressure Mean Blood Pressure Mean [Right Arm] Blood Pressure Source Blood Pressure Source [Right Arm] Blood Pressure Position Blood Pressure Position [Right Arm] 02 Sat by Pulse Oximetry 84 L 80 L 98 Oxygen Delivery Method Oxygen Flow Rate (LPM) Fraction of Inspired Oxygen 04/11/24 03:15 04/11/24 03:15 04/11/24 03:20 Temperature Temperature Source Pulse Rate 89 Pulse Rate [Right Brachial] Respiratory Rate 27 H Blood Pressure 137/67 Blood Pressure [Right Arm] Blood Pressure Mean 106 Blood Pressure Mean [Right Arm] Blood Pressure Source Blood Pressure Source [Right Arm] Blood Pressure Position Blood Pressure Position [Right Arm] 02 Sat by Pulse Oximetry 92 L Oxygen Delivery Method Vapotherm Oxygen Flow Rate (LPM) 30 Fraction of Inspired Oxygen 100 04/11/24 03:22 04/11/24 03:30 04/11/24 03:30 Temperature Temperature Source Pulse Rate 99 H 98 H Pulse Rate [Right Brachial] Respiratory Rate 27 H Blood Pressure 138/73 Blood Pressure [Right Arm] Blood Pressure Mean 94 Blood Pressure Mean [Right Arm] Blood Pressure Source Blood Pressure Source [Right Arm] Blood Pressure Position Blood Pressure Position [Right Arm] 02 Sat by Pulse Oximetry 94 L Oxygen Delivery Method Oxygen Flow Rate (LPM) Fraction of Inspired Oxygen 04/11/24 03:40 04/11/24 03:40 04/11/24 03:47 Temperature Temperature Source Pulse Rate 104 H 88 Pulse Rate [Right Brachial] Respiratory Rate 26 H 25 H Blood Pressure 146/52 H Blood Pressure [Right Arm] Blood Pressure Mean 83 Blood Pressure Mean [Right Arm] Blood Pressure Source Blood Pressure Source [Right Arm] Blood Pressure Position Blood Pressure Position [Right Arm] 02 Sat by Pulse Oximetry 92 L 83 L Oxygen Delivery Method Oxygen Flow Rate (LPM) Fraction of Inspired Oxygen 04/11/24 03:47 04/11/24 04:00 04/11/24 04:01 Temperature Temperature Source Pulse Rate 103 H 91 H Pulse Rate [Right Brachial] Respiratory Rate 26 H 25 H Blood Pressure 262/202 H Blood Pressure [Right Arm] Blood Pressure Mean 212 Blood Pressure Mean [Right Arm] Blood Pressure Source Blood Pressure Source [Right Arm] Blood Pressure Position Blood Pressure Position [Right Arm] 02 Sat by Pulse Oximetry 97 75 L Oxygen Delivery Method Oxygen Flow Rate (LPM) Fraction of Inspired Oxygen 04/11/24 04:01 04/11/24 04:16 04/11/24 04:16 Temperature Temperature Source Pulse Rate 102 H Pulse Rate [Right Brachial] Respiratory Rate 22 Blood Pressure 222/201 H 106/50 L Blood Pressure [Right Arm] Blood Pressure Mean 207 79 Blood Pressure Mean [Right Arm] Blood Pressure Source Blood Pressure Source [Right Arm] Blood Pressure Position Blood Pressure Position [Right Arm] 02 Sat by Pulse Oximetry 93 L Oxygen Delivery Method Oxygen Flow Rate (LPM) Fraction of Inspired Oxygen 04/11/24 04:30 04/11/24 04:30 04/11/24 04:37 Temperature 97.6 F Temperature Source Axillary Pulse Rate 98 H 105 H Pulse Rate [Right Brachial] Respiratory Rate 23 22 Blood Pressure 114/54 L 114/54 L Blood Pressure [Right Arm] Blood Pressure Mean 74 Blood Pressure Mean [Right Arm] Blood Pressure Source Automatic Cuff Blood Pressure Source [Right Arm] Blood Pressure Position Supine Blood Pressure Position [Right Arm] 02 Sat by Pulse Oximetry 95 Oxygen Delivery Method Vapotherm Oxygen Flow Rate (LPM) 30 Fraction of Inspired Oxygen 04/11/24 04:45 04/11/24 04:45 04/11/24 05:00 Temperature Temperature Source Pulse Rate 100 H 98 H Pulse Rate [Right Brachial] Respiratory Rate 21 19 Blood Pressure 119/57 L Blood Pressure [Right Arm] Blood Pressure Mean 75 Blood Pressure Mean [Right Arm] Blood Pressure Source Blood Pressure Source [Right Arm] Blood Pressure Position Blood Pressure Position [Right Arm] 02 Sat by Pulse Oximetry 94 L 95 Oxygen Delivery Method Oxygen Flow Rate (LPM) Fraction of Inspired Oxygen 04/11/24 05:00 Temperature Temperature Source Pulse Rate Pulse Rate [Right Brachial] Respiratory Rate Blood Pressure 96/50 L Blood Pressure [Right Arm] Blood Pressure Mean 65 Blood Pressure Mean [Right Arm] Blood Pressure Source Blood Pressure Source [Right Arm] Blood Pressure Position Blood Pressure Position [Right Arm] 02 Sat by Pulse Oximetry Oxygen Delivery Method Oxygen Flow Rate (LPM) Fraction of Inspired Oxygen Lab Data Labs: Lab Results 04/11/24 01:30: Sodium 139, Potassium 4.5, Chloride 104, Carbon Dioxide 22, A nion Gap 17.5 H, BUN 20 H, Creatinine 0.70, Estimated Creat Clear 47, Estimated GFR 79, Est GFR ( Amer) 96, Glucose 303 H, Calcium 8.5, Total Bilirubin 0.3, AST 83 H, ALT 42, Alkaline Phosphatase 125, Troponin I 0.05 H, NT-Pro-B Natriuret Pep 3280 H, Total Protein 6.1 L, Albumin 3.7, Globulin 2.4, Albumin/Globulin Ratio 1.5, Triglycerides 146, Cholesterol 168, LDL Cholesterol Direct 102.53, VLDL Cholesterol 29, HDL Cholesterol 35 L, Cholesterol/HDL Ratio 4.8 H, Procalcitonin 0.063, Plasma/Serum Alcohol < 10 04/11/24 01:34: VBG pH 7.09 L, VBG pCO2 63.4 H, VBG pO2 70.0 H, VBG HCO3 18.6 L, VBG Total CO2 20.6 L, VBG O2 Saturation 87.4 H, VBG Base Excess -11.3 L, VBG Lactic Acid 5.5 H 04/11/24 01:35: HCV Ab GRACIA w/Rflx PCR Qn Negative, HIV Ag/Ab Combo Qual Negative 04/11/24 01:50: WBC 22.7 H*, RBC 4.51, Hgb 11.6 L, Hct 41.9, MCV 92.9, MCH 25.7 L, MCHC 27.7 L, RDW 15.9, Plt Count 241, MPV 11.1 H, Neut % (Auto) 34.5 L, Lymph % (Auto) 55.7 H, Brooks % (Auto) 7.9, Eos % (Auto) 0.8, Baso % (Auto) 0.3, Neut # (Auto) 7.8, Lymph # (Auto) 12.6 H, Brooks # (Auto) 1.8 H, Eos # (Auto) 0.2, Baso # (Auto) 0.1, Total Counted 100, Neutrophils % (Manual) 32 L, Band Neutrophils % 7.0, Lymphocytes % (Manual) 50, Monocytes % (Manual) 11 H, Platelet Estimate Normal, RBC Morphology Normal, PT 10.3, INR 0.93, APTT 27.0 04/11/24 02:26: Urine Color Cassandra, Urine Appearance Slightly cloudy, Urine pH 5.5, Ur Specific Pal[place] 1.025, Urine Protein 1+ A, Urine Glucose (UA) Negative, Urine Ketones Negative, Urine Blood 3+ A, Urine Nitrate Negative, Urine Bilirubin Negative, Urine Urobilinogen 0.2, Ur Leukocyte Esterase 2+ A, Urine RBC Tntc, Urine WBC 50-100, Ur Squamous Epith Cells 10-20, Amorphous Sediment 1+, Urine Bacteria 1+, Urine Opiates Screen Positive H, Urine Methadone Screen Negative, Ur Barbituates Screen Negative, Ur Phencyclidine Scrn Negative, Ur Amphetamines Screen Negative, U Benzodiazepines Scrn Negative, Urine Cocaine Screen Negative, U Marijuana (THC) Screen Negative, Chlamy pneumoniae PCR Not detected, Adenovirus (PCR) Not detected, B. pertussis DNA (PCR) Not detected, Coronavirus OC43 (PCR) Not detected, Coronavirus HKU1 (PCR) Not detected, Coronavirus 229E (PCR) Not detected, SARS-CoV-2 (PCR) Not detected, Coronavirus NL63 (PCR) Not detected, Human Metapneumovir PCR Not detected, Influenza A (H1) PCR Not detected, Influ A (H1N1/09) PCR Detected A, Influenza A (H3) PCR Not detected, Influenza Type A (PCR) Not detected, Influenza Type B (PCR) Not detected, M. pneumoniae (PCR) Not detected, Parainfluenza 1 (PCR) Not detected, Parainfluenza 2 (PCR) Not detected, Parainfluenza 3 (PCR) Not detected, Parainfluenza 4 (PCR) Not detected, RSV (PCR) Not detected, Entero/Rhino (PCR) Not detected 04/11/24 01:50 04/11/24 01:30 Response Orders (Tests/Meds): ED MEDICATIONS Generic Name Dose Route Start Last Admin Trade Name Freq PRN Reason Stop Dose Admin Albuterol Sulfate 20 mg 04/11/24 03:55 04/11/24 04:08 Albuterol 0.083% 2.5 Mg/3 Ml Neb IH 04/11/24 03:56 20 mg ONCE ONE Administration Famotidine 20 mg 04/11/24 09:00 Famotidine 20mg/2ml Vial IV 05/11/24 08:59 BID SRINIVASA Ceftriaxone Sodium 2 gm/ 50 mls @ 100 mls/hr 04/11/24 01:45 04/11/24 02:20 Sodium Chloride IV 04/21/24 01:44 100 mls/hr Q24H SRINIVASA Administration Sodium Chloride 1,000 mls @ 75 mls/hr 04/11/24 04:15 04/11/24 06:07 Sod Chlor 0.9% 1000ml Bag IV 05/11/24 04:14 75 mls/hr .[id number] SRINIVASA Administration Miscellaneous 1 each 04/11/24 02:30 04/11/24 02:49 Vancomycin Consult Request NOTAPPLIC 05/11/24 02:29 1 each CONSULT PHARMACY SRINIVASA Administration Morphine Sulfate 2 mg 04/11/24 04:14 Morphine 2mg/Ml Syringe IV 05/11/24 04:13 Q2HP PRN Severe Pain (7-10) Ondansetron HCl 4 mg 04/11/24 04:14 Ondansetron 4mg/2ml Vial IV 05/11/24 04:13 Q6HP PRN Nausea Sodium Chloride 10 ml 04/11/24 01:31 Sodium Chloride 0.9% 10ml Flush Syringe IV 05/11/24 01:30 NEEDED PRN Maintain IV Site Sodium Chloride 8 ml 04/11/24 04:14 Sodium Chloride 0.9% 10ml Vial IV 05/11/24 04:13 NEEDED PRN dilute pepcid Discontinued Medications Generic Name Dose Route Start Last Admin Trade Name Freq PRN Reason Stop Dose Admin Furosemide 80 mg 04/11/24 01:31 04/11/24 01:42 Furosemide 40mg/4ml Vial IV 04/11/24 01:32 80 mg ONCE ONE Administration Furosemide 80 mg 04/11/24 02:48 04/11/24 02:51 Furosemide 100mg/10ml Vial IV 04/11/24 02:49 80 mg ONCE ONE Administration Lactated Ringer's 500 mls @ 999 mls/hr 04/11/24 02:27 04/11/24 02:55 Lactated Ringer's 500ml IV 04/11/24 02:57 Not Given .Q31M ONE Vancomycin/PEG/NADA/Lysine/Water 1.5 gm in 300 mls @ 150 mls/hr 04/11/24 02:30 04/11/24 02:55 Vancomycin 1.5gm/300ml (Peg) Premix IV 04/11/24 04:29 150 mls/hr ONCE ONE Administration Octreotide Acetate 50 mcg/ 51 mls @ 102 mls/hr 04/11/24 04:00 Sodium Chloride IV 05/11/24 03:59 Q8H SRINIVASA Methylprednisolone Sodium Succinate 125 mg 04/11/24 01:31 04/11/24 01:42 Methylprednisolone Sod Succ 125mg Vial IV 04/11/24 01:32 125 mg ONCE ONE Administration Morphine Sulfate 2 mg 04/11/24 03:35 04/11/24 03:38 Morphine 2mg/Ml Syringe IV 04/11/24 03:36 2 mg ONCE ONE Administration ORDERS Category Date Time Status CT angio chest PE protocol Stat Cat Scan 04/11/24 01:[address] angio head Stat Cat Scan 04/11/24 01:[address] angio neck Stat Cat Scan 04/11/24 01:[address] head/brain wo con Stat Cat Scan 04/11/24 02:54 Ordered Consult to Cardiology [CONS] Routine Cons 04/11/24 04:14 Active Consult to Pulmonology [CONS] Routine Cons 04/11/24 04:14 Active Nutrition Consult [CONS] Routine Cons 04/11/24 04:14 Active XR chest portable Stat Exams 04/11/24 01:31 Completed Activated Partial Thrombo Time Stat Lab 04/11/24 01:50 Completed Complete Blood Count Auto Diff AMLAB Lab 04/11/24 06:00 Ordered Complete Blood Count Auto Diff Stat Lab 04/11/24 01:50 Completed Comprehensive Metabolic Panel AMLAB Lab 04/11/24 06:00 Ordered Comprehensive Metabolic Panel Stat Lab 04/11/24 01:30 Completed Drug Screen,Urine Stat Lab 04/11/24 02:26 Completed Ethyl Alcohol Stat Lab 04/11/24 01:30 Completed Full Resp Panel w/COVID ([facility]) Routine Lab 04/11/24 02:26 Completed HIV Combo Stat Lab 04/11/24 01:35 Completed Hepatitis C Ab Qual. W/ RFX Stat Lab 04/11/24 01:35 Completed Lipid Panel Stat Lab 04/11/24 01:30 Completed Magnesium AMLAB Lab 04/11/24 06:00 Ordered NT Pro Brain Natriuretic Pep. Stat Lab 04/11/24 01:30 Completed Procalcitonin Stat Lab 04/11/24 01:30 Completed Prothrombin Time INR Stat Lab 04/11/24 01:50 Completed Troponin I Q3H Lab 04/11/24 04:45 Ordered Troponin I Q3H Lab 04/11/24 07:45 Ordered Troponin I Stat Lab 04/11/24 01:30 Completed Urinalysis and Microscopic Stat Lab 04/11/24 02:26 Completed Urine Culture Stat Micro 04/11/24 02:26 Received VBG [Venous Blood Gas] Stat RT 04/11/24 01:34 Completed Venous Blood Gas AMLAB RT 04/11/24 06:00 Ordered ECG Request Stat Y 04/11/24 01:32 Ordered MDM Narrative Medical Decision Narrative: In summary, this 88-year-old female presents to the emergency department today with an initial complaint of shortness of breath, becoming unresponsive with EMS, DNR/DNI. On initial evaluation patient is in acute distress, ill-appearing, hypoxic, respiratory distress, frothy bloody sputum coming from the mouth, wheezing, diminished breath sounds throughout, profoundly ill-appearing, GCS 7, NIH was only able to be tested limitedly secondary to patient's level of responsiveness, the accurately testable test led to an NIH of 19, total NIH considering all tests would be 36. Patient was made a stroke alert due to her acute change in mental status. Differential diagnosis includes but is not limited to intracranial bleed, ischemic stroke, ACS, PE, fluid overload, sepsis, UTI, pneumonia, viral syndrome, kidney dysfunction, electrolyte abnormality, among others. Based on these concerns, I ordered broad workup, CT imaging, serum labs, blood cultures, urine studies. On arrival to the ER, patient is not a candidate for BiPAP due to her poor mental status. She was placed on Vapotherm, received DuoNebs, Solu-Medrol, chest x-ray personally interpreted at bedside demonstrates findings of pneumonia, elevation of the right hemidiaphragm, possible effusion. See radiology read for final interpretation. Cxyiz-mg-crol ultrasound performed and personally interpreted demonstrates severely poor left cardiac function, pulmonary edema. See procedure note for details. Based on findings of chest x-ray, I had higher suspicion for sepsis. Patient received Rocephin initially and vancomycin was also administered for concerns of sepsis. Unfortunately due to her findings of fluid overload clinically, pulmonary edema, I do not believe she is an appropriate candidate for sepsis bolus. Her blood pressures are stable at this time. With the findings of pulmonary edema clinically and on ultrasound as well as poor left heart squeeze, IV Lasix is being administered. ECG personally interpreted demonstrates sinus rhythm, short OH, no delta wave, no WPW, rate 91, borderline left axis deviation, left bundle branch block, no STEMI, ECG has similar morphology to previous based on my review of prior labs. Patient's oxygen improved and she was taken to CT scan however she was not protecting her airway, began to aspirate on the frothy bloody sputum. CT had to be aborted. The very limited images that were obtained of the lower part of the brain do not demonstrate acute intracranial abnormality such as bleed on my personal interpretation. This is not a complete study. Management decisions will not be made off of this study. No other CTs were performed at that time. Patient came back to the room and I attempted to further stabilize her, unfortunately she continued having random desaturations and is not able to clear her own airway, requiring suctioning. At this time she is not stable for CT scan. She will have brief episodes of good saturations in the 90s, then will randomly desat as low as the 60s and independently improve again to the 90s. Unfortunately due to her inability to protect her own airway she is not safe for CT given the frothy sputum she is bringing up. She has had some slight improvement in her mental status, now's responding more to stimuli. Labs reviewed demonstrate significant leukocytosis WBC 22.7, mild anemia with hemoglobin 11.6, platelets normal, patient has lymphocytosis and monocytosis likely more related to viral infection, PT/INR and APTT normal, VBG concerning for respiratory and metabolic acidosis, VBG lactic 5.5, pCO2 63.4, pH 7.09. CMP with prerenal azotemia, patient is not a candidate for IV fluids at this time given her significant fluid overload which I believe is the etiology of her frothy, bloody secretions. I considered GI bleed however I reviewed previous imaging including abdominal MRI from the end of last year which does not demonstrate varices or significant liver disease. Patient has mild elevation of AST at 83, troponin is mildly elevated at 0.05 likely due to hypoxia and strain from ongoing illness, BNP elevated at 3280, significantly elevated compared to her previous levels in 2021. UA is obviously infected with blood, leukocyte esterase, 50-100 WBCs, 1+ bacteria. EtOH negative, UDS positive for opiates, viral panel positive for influenza. Patient is not a candidate for Tamiflu at this time since she is unable to take anything by mouth due to significant airway risk. Additional attempts were made to take the patient to CT scan however she was unable to be removed from the Vapotherm and nonrebreather due to oxygen desaturations. Family presented to bedside shortly after an attempt to take her to CT scan. I spoke at length with the sister, Mary Jane, and the patient's [id number]. They want to maintain the patient's DNR/DNI status. I explained that I am unable to rule in or out stroke at this time. I explained my concern for stroke given her acute change in mental status but also that I thought that could be related to her hypoxia and respiratory failure. I explained that despite her dense NIH and possibility of PE I was unable to proceed with thrombolytics at this time due to not being able to rule out intracranial bleed with the lack of noncontrast head CT. I also explained that I would not be able to potentially transfer the patient without further imaging which is not obtainable at this time due to her instability. I explained the findings of sepsis, UTI, pneumonia. Family is very understanding that patient is in a dire situation and critically ill. They understand that she would likely of these ongoing problems. We had a long shared decision-making discussion about comfort care versus continuing the management which has been initiated including diuretics, IV antibiotics, and respiratory support up to the point of intubation but not including intubation. At this time, family wants her to be comfortable and to receive low-dose pain medication to help with any pain she may be experiencing as well as the sensation of shortness of breath, they are not ready to transition to full comfort care at this time. They would like to see if the Lasix and antibiotics offer any improvement to the patient over the next few hours. They have made it clear that the anticipate transitioning to comfort care soon if the patient does not improve or worsens. They have clear understanding of the patient's dire condition. BERTHA Degroot at bedside throughout this conversation. I discussed this patient with the hospitalist including the lack of CT imaging, current management, and family's wishes. Patient was graciously accepted for admission and admitted in critical condition.
--- NOTE | 2024-04-11 04:37 | PC.NURSE ---
Report given to BERTHA Bryson in the ICU
--- NOTE | 2024-04-11 05:18 | P.HP_ITS ---
<Statement entered by Hermann Segura MD - 04/13/24 10:31> Personally examined patient and agree with the plan of care as outlined by the [employer]. History of Present Illness *Admission Date: 04/11/24 *Reason for visit:: Respiratory failure UTI sepsis *History of present illness: This retirement patient, he began to have some difficulty breathing was transported on oxygen from the retirement and an ambulance to the ER., .From report she was doing very well talking in the back of the ambulance at that point in time the patient made a sudden change for the worse became unresponsive respiratory distress.. Patient was brought into the emergency room in a con dition with low oxygen saturations., Patient also being nonresponsive with a right-sided gaze with both eyes.. Emergency care was given. I was requested to come down to the emergency room also was seeing the patient with the ER provider. Lung sounds extremely decreased on the right. Chest x-ray done showing right lower half of the lung with infiltrate.. Urinalysis also was done which showed a significant UTI. Patient was treated with oxygen Vapotherm continuous nebulizer.. Antibiotics were started. ER provider ordered CT scan patient was taken to CT but due to her condition was only able to complete part of that was inconclusive show a cerebral bleed or rule it out.. Patient is still unstable but somewhat improved. Oxygen saturations now above 90 labs have come back showing she also has flu A. Due to the patient's present status not able to start Tamiflu p.o. Family members came to the emergency room. Our provider talked with them.. They were updated on the seriousness of their mother. I will place the patient in the ICU. Continue antibiotics at this time. Go to be very careful with any fluid given. As the patient appears to be very wet in her lungs. Despite the fact of needing probably sepsis protocol.. Patient is very fragile. and the family is aware of this. I have had direct conversation with the ER provider that were not able to give any anticoagulation now either for PE since we cannot rule out a bleed in the brain. For this reason we will do everything medically weekend to see if we can get her to improve and control this infection get rid of the sepsis to see if she does improve.. Family understands that if she was to become more we would possibly then just go to care and comfort measures as the patient is that sick PFSH PFSH Disclaimer: The information contained in this section may have been updated after the patient was seen, as this information can be updated by other users. Medical History Depression Closed head injury Choledocholithiasis Diverticulitis UTI (urinary tract infection) Arthralgia of elbow, left Fall Elevated LFTs CHERRY (acute kidney injury) Thrombocytopenia Anemia Pancreatitis Renal insufficiency Bacterial infection due to Proteus mirabilis Respiratory failure with hypercapnia Obesity (BMI 30-39.9) Elevated troponin IVCD (intraventricular conduction defect) Severe sepsis with acute organ dysfunction Cough with hemoptysis COPD with acute exacerbation Respiratory failure with hypercapnia Chest pain Anemia Elevated troponin Healthcare-associated pneumonia Vomiting Scalp laceration Fall History of CA (myocardial infarction) Age-related physical debility Malaise Overactive bladder Rheumatic arteritis Gastroesophageal reflux disease Heart failure Chronic insomnia Anxiety Major depression in partial remission Dementia Hyperlipidemia Hypertension Surgical History Surgical history unknown Family History Other No significant family history Social History Smoking Status: Never smoker alcohol intake: never substance use type: denies use and other current occupational status: retired Travel in the last 8 weeks: None housing: retirement Other Medical History Have you received the Flu Vaccine for this season: No Have you received the Pneumonia Vaccine: Yes (07/11/19) Review of Systems Review of Systems Review of systems:: other (Patient is critical at this time) and pertinent systems reviewed and negative unless documented below Review of systems (narrative): Review of systems very limited as the patient is unable to respond Constitutional Constitutional: Reports as per HPI and Reports other (Unresponsive at this time nonverbal) Eyes Eyes: Reports as per HPI Comments: Unable to evaluate vision ENT Ears, Nose, Mouth, and Throat: Reports as per HPI *Cardiovascular Cardiovascular: Reports as per HPI *Respiratory Respiratory: Reports as per HPI *Gastrointestinal Gastrointestinal: Reports as per HPI *Genitourinary Genitourinary: Reports as per HPI *Musculoskeletal Musculoskeletal: Reports as per HPI Integumentary/Breasts Skin/Breast: Reports as per HPI *Neurologic Neurologic: Reports as per HPI Endocrine Endocrine: Reports as per HPI Hematologic/Lymphatic Hematologic/Lymphatic: Reports as per HPI Allergic/Immunologic Allergic/Immunologic: Reports as per HPI Meds Home Medications and Allergies Home Medications ?Medication ?Instructions ?Recorded ?Confirmed ?Type bisacodyl 10 mg rectal suppository 10 mg [place] DAILYP PRN Constipation 12/11/19 04/11/24 History docusate sodium 250 mg capsule 250 mg PO DAILY 12/11/19 04/11/24 History melatonin 3 mg capsule 3 mg PO HS 12/11/19 04/11/24 History ondansetron HCl 4 mg tablet 4 mg PO Q6HP PRN Nausea And 12/11/19 04/11/24 History (Zofran) Vomiting aspirin 81 mg chewable tablet 81 mg PO DAILY 07/20/21 04/11/24 History clopidogrel 75 mg tablet 75 mg PO DAILY 07/20/21 04/11/24 History sertraline 50 mg tablet 50 mg PO DAILY 07/20/21 04/11/24 History prednisone 10 mg tablet 10 mg PO DAILY 01/13/23 04/11/24 History sodium chloride 0.65 % nasal spray 1 spray intranasal BID 02/27/23 04/11/24 History aerosol (Deep Sea Nasal) guaifenesin 100 mg/5 mL oral 200 mg PO Q6H PRN Congestion 01/11/24 04/11/24 History liquid (Radha-Tussin) ropinirole 2 mg tablet 2 mg PO BID 01/11/24 04/11/24 History sertraline 25 mg tablet 25 mg PO DAILY 01/11/24 04/11/24 History benzonatate 100 mg capsule 100 mg PO TID PRN Cough 04/05/24 04/11/24 History gabapentin 100 mg capsule 100 mg PO BID #60 caps 04/06/24 04/11/24 Rx hydrocodone 5 mg-acetaminophen 325 1 tab PO BID #60 tabs 04/06/24 04/11/24 Rx mg tablet New Prescriptions to Start Prescriptions: Allergies Allergy/AdvReac Type Severity Reaction Status Date / Time alendronate sodium (From Allergy Unknown Verified 04/05/24 09:35 Fosamax) NSAIDS (Non-Steroidal Allergy Unknown Verified 04/05/24 09:35 Anti-Inflamma Penicillins Allergy Unknown Verified 04/05/24 09:35 Exam Data for Last 24 hours Vital signs and Labs for Last 24 Hours: Temp Pulse Resp BP Pulse Ox O2 Del Method O2 Flow Rate 97.6 F 105 H 22 114/54 L 98 Vapotherm 30 04/11/24 04:37 04/11/24 04:37 04/11/24 04:37 04/11/24 04:37 04/11/24 03:00 04/11/24 04:37 04/11/24 04:37 FiO2 100 04/11/24 03:20 Laboratory Results - last 24 hr 04/11/24 01:30: Sodium 139, Potassium 4.5, Chloride 104, Carbon Dioxide 22, Anion Gap 17.5 H, BUN 20 H, Creatinine 0.70, Estimated Creat Clear 47, Estimated GFR 79, Est GFR ( Amer) 96, Glucose 303 H, Calcium 8.5, Total Bilirubin 0.3, AST 83 H, ALT 42, Alkaline Phosphatase 125, Troponin I 0.05 H, NT-Pro-B Natriuret Pep 3280 H, Total Protein 6.1 L, Albumin 3.7, Globulin 2.4, Albumin/Globulin Ratio 1.5, Triglycerides 146, Cholesterol 168, LDL Cholesterol Direct 102.53, VLDL Cholesterol 29, HDL Cholesterol 35 L, Cholesterol/HDL Ratio 4.8 H, Procalcitonin 0.063, Plasma/Serum Alcohol < 10 04/11/24 01:34: VBG pH 7.09 L, VBG pCO2 63.4 H, VBG pO2 70.0 H, VBG HCO3 18.6 L, VBG Total CO2 20.6 L, VBG O2 Saturation 87.4 H, VBG Base Excess -11.3 L, VBG Lactic Acid 5.5 H 04/11/24 01:35: HCV Ab GRACIA w/Rflx PCR Qn Negative, HIV Ag/Ab Combo Qual Negative 04/11/24 01:50: WBC 22.7 H*, RBC 4.51, Hgb 11.6 L, Hct 41.9, MCV 92.9, MCH 25.7 L, MCHC 27.7 L, RDW 15.9, Plt Count 241, MPV 11.1 H, Neut % (Auto) 34.5 L, Lymph % (Auto) 55.7 H, [place] % (Auto) 7.9, Eos % (Auto) 0.8, Baso % (Auto) 0.3, Neut # (Auto) 7.8, Lymph # (Auto) 12.6 H, [place] # (Auto) 1.8 H, Eos # (Auto) 0.2, Baso # (Auto) 0.1, Total Counted 100, Neutrophils % (Manual) 32 L, Band Neutrophils % 7.0, Lymphocytes % (Manual) 50, Monocytes % (Manual) 11 H, Platelet Estimate Normal, RBC Morphology Normal, PT 10.3, INR 0.93, APTT 27.0 04/11/24 02:26: Urine Color Cassandra, Urine Appearance Slightly cloudy, Urine pH 5.5, Ur Specific [place] 1.025, Urine Protein 1+ A, Urine Glucose (UA) Negative, Urine Ketones Negative, Urine Blood 3+ A, Urine Nitrate Negative, Urine Bilirub in Negative, Urine Urobilinogen 0.2, Ur Leukocyte Esterase 2+ A, Urine RBC Tntc, Urine WBC 50-100, Ur Squamous Epith Cells 10-20, Amorphous Sediment 1+, Urine Bacteria 1+, Urine Opiates Screen Positive H, Urine Methadone Screen Negative, Ur Barbituates Screen Negative, Ur Phencyclidine Scrn Negative, Ur Amphetamines Screen Negative, U Benzodiazepines Scrn Negative, Urine Cocaine Screen Negative, U Marijuana (THC) Screen Negative, Chlamy pneumoniae PCR Not detected, Adenovirus (PCR) Not detected, B. pertussis DNA (PCR) Not detected, Coronavirus OC43 (PCR) Not detected, Coronavirus HKU1 (PCR) Not detected, Coronavirus 229E (PCR) Not detected, SARS-CoV-2 (PCR) Not detected, Coronavirus NL63 (PCR) Not detected, Human Metapneumovir PCR Not detected, Influenza A (H1) PCR Not detected, Influ A (H1N1/09) PCR Detected A, Influenza A (H3) PCR Not detected, Influenza Type A (PCR) Not detected, Influenza Type B (PCR) Not detected, M. pneumoniae (PCR) Not detected, Parainfluenza 1 (PCR) Not detected, Parainfluenza 2 (PCR) Not detected, Parainfluenza 3 (PCR) Not detected, Parainfluenza 4 (PCR) Not detected, RSV (PCR) Not detected, Entero/Rhino (PCR) Not detected I & O for Last 24 hours: Intake & Output 01/1704/09/24 04/10/24 04/11/24 05:59 05:59 05:59 05:59 Weight 170 lb Radiology Reports for the Last 24 Hours: Unable to get a good CT scan of the head. Chest x-ray shows and significance of consolidation into the right lower lung, Constitutional Constitutional: severe distress, thin and obtunded *Routine HEENT Exam Head: Present normocephalic and atraumatic Eye: Present EOMI (Patient has a slight right gaze with both eyes) and PERRL ENT: Present mucous membranes moist *Routine Neck Exam Neck: Present supple Comments: No sign of neck rigidity Routine Chest/Breast/Axilla Exam Comments: Unable to evaluate for tenderness patient really was unresponsive *Routine Respiratory Exam Respiratory: Present accessory muscle use, decreased breath sounds, respiratory distress, distant breath sounds and diminished air movement Comments: O2 saturations dropping into the 60s at time., Increasing oxygen rate and delivery method to bring oxygen saturations greater than 90% *Routine Cardiovascular Exam Cardiovascular: Present murmur and tachycardia *Routine Abdominal Exam Abdominal: Present soft Comments: No tenderness was found during examination of the abdomen no rigidity *Routine Rectal Exam Rectal:: deferred *Routine Genitalia Exam Genitalia:: deferred *Routine Extremities Exam Comments: Had no edema to either any of the extremities but the patient was not moving them and could not follow commands Routine Back/Spine/Pelvis Exam Comments: There was no signs of injury to the back. Unable to evaluate for tenderness *Routine Skin Exam Skin: Present cyanosis Comments: Patient lower extremities were mottled, this did improve with increased oxygenation rate and saturation rate, *Routine Neurological Exam Neurological: Present altered mental status Comments: Patient not able to respond to verbal command Routine Psychiatric Exam Comments: Patient unable to respond to verbal command H&P: Result Impressions 1.Respiratory failure, right lung pneumonia with positive flu A 2. Altered mental status obtunded 3. Elevated WBCs and positive urinary tract infection with sepsis Imaging and Cardiology CT scan - head: Additional comments: Only partial images available unable to complete due to patient's condition Chest x-ray: Status: image reviewed by me Additional comments: Right lower lung infiltrate Assessment and Plan *Assessment and plan (1) Acute hypoxic respiratory failure: Status: Acute Category: Medical Code(s): J96.01 - Acute respiratory failure with hypoxia (2) Pneumonia: Status: Acute Qualifiers: Pneumonia type: due to influenza A virus Qualified Code(s): J10.00 - Influenza due to other identified influenza virus with unspecified type of pneumonia Category: Medical Code(s): J18.9 - Pneumonia, unspecified organism (3) UTI (urinary tract infection): Status: Acute Qualifiers: Hematuria presence: without hematuria Urinary tract infection type: acute cystitis Qualified Code(s): N30.00 - Acute cystitis without hematuria Category: Medical Code(s): N39.0 - Urinary tract infection, site not specified (4) Altered mental status, unspecified: Status: Acute Qualifiers: Altered mental status type: stupor Qualified Code(s): R40.1 - Stupor Category: Medical Code(s): R41.82 - Altered mental status, unspecified (5) Acidosis, lactic: Status: Acute Category: Medical Code(s): E87.20 - Acidosis, unspecified (6) Influenza A (H1N1): Status: Acute Category: Medical Code(s): J10.1 - Influenza due to other identified influenza virus with other respiratory manifestations (7) Elevated troponin: Status: Acute Category: Medical Code(s): R79.89 - Other specified abnormal findings of blood chemistry (8) Sepsis: Status: Acute Qualifiers: Acute respiratory failure type: with hypoxia Sepsis acute organ dysfunction status: with acute organ dysfunction Sepsis type: sepsis due to unspecified organism Severe sepsis acute organ dysfunction type: acute respiratory failure Severe sepsis shock status: with septic shock Qualified Code(s): A41.9 - Sepsis, unspecified organism; R65.21 - Severe sepsis with septic shock; J96.01 - Acute respiratory failure with hypoxia Category: Medical Code(s): A41.9 - Sepsis, unspecified organism (9) Hemoptysis, unspecified: Status: Acute Category: Medical Code(s): R04.2 - Hemoptysis Plan 1. Patient will be admitted to the ICU. Receiving as needed antibiotic support., ,Respiratory support patient is very critical and we will see Sumeet support with DuoNebs antibiotic fluids if needed can turn the patient around.. Patient is stuporous and obtunded so not able to take anything p.o. not able to start Tamiflu for the flu A. Family is aware of the condition here that the patient may only be able if not improving to be placed in care and comfort.. We will continue with consult for pulmonary and cardiology to see if there is any treatment that may be beneficial. 2. Treating urinary tract infection with Rocephin at this time. Awaiting culture, also noting blood cultures have been drawn 3. Respiratory status patient is on Vapotherm at this time not sure if BiPAP she would be able to tolerate well would advance to that if needed. Patient is a DNR DNI. She has been in the retirement and that was confirmed with the retirement that this was her CODE STATUS.
--- NOTE | 2024-04-11 05:44 | PC.NURSE ---
patient arrived to ICU unit via stretcher @05:10
[2024-04-11 05:49] LABS: POC Glucose,Bedside 190 (70-110)
[2024-04-11 05:55] LABS: Reflex Lactic Add Lactic Reflex
[2024-04-11] MEDS: 0.9 % SODIUM CHLORIDE 1000ML 1,000 ML 75 ML IV (06:07)
[2024-04-11 06:37] LABS: Basophils % 0.1 % (0.1-2.0); Hematocrit 37.9 % (37.0-47.0); Hemoglobin 10.8 g/dL (12.2-16.2); Lymphocytes # 0.5 K/mm3 (0.7-4.5); Lymphocytes % 3.9 % (10-50); Mean Corpuscular HGB Conc 28.5 g/dL (31.8-35.4); Mean Corpuscular Volume 91.1 fl (81-99); Mean Platelet Volume 10.5 fl (7.4-10.4); Monocytes # 0.9 K/mm3 (0.1-1.0); Monocytes % 6.8 % (1.7-9.3); Neutrophils # 11.2 K/mm3 (1.8-7.8); Neutrophils % 88.6 % (37.0-80.0); Platelet Count 179 K/mm3 (142-424); Red Blood Count 4.16 M/mm3 (4.20-5.40); Red Cell Distribution Width 15.9 % (11.5-17.5); White Blood Count 12.6 K/mm3 (4.8-10.8)
--- NOTE | 2024-04-11 08:07 | CT_ITS ---
FINAL REPORT TECHNIQUE: The patient was injected with IV contrast. Axial images were obtained through the chest in a PE protocol. 3-D reconstruction images were also performed. Individualized dose reduction techniques using automated exposure control or adjustment of the MA and/or KV according to patient's size were employed. CLINICAL HISTORY: hypoxia, SOB COMPARISON: 04/22/2021 FINDINGS: There is asymmetric enlargement of the right lobe of the thyroid which is heterogeneous consistent with a goiter. Mediastinal vasculature is adequately opacified. No pulmonary artery filling defects are identified to suggest PE. There is no aortic dissection. There is no axillary adenopathy. There is no hilar or mediastinal adenopathy. The heart size is normal. There is a moderate right and small left pleural effusion. There is consolidation in the posterior right upper lobe and both lower lobes. IMPRESSION: No pulmonary embolus or dissection. Moderate right and small left pleural effusion. Consolidation in the right upper and both lower lobes. Reviewed, Interpreted and Dictated by Samir Vance MD Transcribed by Juliette Sorensen Authenticated and [facility]
[2024-04-11 08:09] LABS: Lactate Venous 3.3 mmol/L (0.4-2.0); VBG HCO3 20.8 mmol/L (23-30); VBG PCO2 39.4 mmol/L (35-51); VBG PH 7.34 mmol/L (7.31-7.41); VBG PO2 93.9 mmol/L (28-40)
--- NOTE | 2024-04-11 08:10 | SW/DCPLANNER ---
Addendum entered by Magy Gil 04/18/24 10:33: Per [facility]/ [facility] Bhakta patient will return [facility] level of care. Addendum entered by Magy Gil 04/18/24 08:35: Updated patient information faxed to [facility] watts/ He[facility] Bhakta. Addendum entered by Magy Gil 04/14/24 08:04: Updated patient information faxed to [facility]aley watts/ Heber Bhakta. Original Note: This patient currently resides at [facility] level of care. Updated patient information will be faxed today. Discharge date is unknown at this time. I will continue to follow up.
--- NOTE | 2024-04-11 08:22 | CT_ITS ---
FINAL REPORT TECHNIQUE: After the administration of oral and intravenous contrast, axial images were obtained through the abdomen and pelvis by computed tomography. The study was performed with techniques to keep radiation dose as low as reasonably achievable, (ALARA). Individual dose reduction techniques using automated exposure control or adjustment of mA and/or kV according to the patient's size were employed. CLINICAL HISTORY: gi bleed COMPARISON: 07/19/2021, 04/18/2021 FINDINGS: Abdomen: The liver parenchyma is homogeneous. A biliary stent is noted. There is moderate intrahepatic and extrahepatic biliary ductal dilatation. The gallbladder is absent. There are calcified granulomas in the spleen. The pancreas is atrophic. The adrenals and kidneys appear unremarkable. The aorta is normal in caliber. There is no free fluid or adenopathy. Pelvis: The GI tract demonstrates no acute abnormality. There is chronic right hip dislocation with a pseudoarthrosis along the lateral margin of the iliac wing. The appendix is not identified. A Kingston balloon and catheter are seen in a decompressed urinary bladder. There is no free fluid or adenopathy. Delayed imaging demonstrates no definite contrast accumulation in the bowel. IMPRESSION: Biliary ductal dilatation with a biliary stent in place. No definite active GI bleed. Chronic right hip dislocation. Reviewed, Interpreted and Dictated by Samir Vance MD Transcribed by Juliette Sorensen Authenticated and . [facility]
[2024-04-11] MEDS: FAMOTIDINE 20MG/2ML VIAL 20 MG IV ×2 (08:48→20:45)
[2024-04-11] MEDS: BUMETANIDE 1MG/4ML VIAL 2 MG IV (08:49)
[2024-04-11 09:18] LABS: Albumin Level 3.7 g/dl (3.5-5.0); Chloride 101 mmol/L (98-107); Potassium 3.9 mmoL/L (3.5-5.1); Sodium 141 mmol/L (136-145)
[2024-04-11 09:21] LABS: Alanine Aminotransferase 88 U/L (12-78); Albumin/Globulin Ratio 1.4 (1.1-1.8); Alkaline Phosphatase 158 U/L (38-126); Anion Gap 15.9 mEq/L (5-15); Aspartate Amino Transferase 170 U/L (14-36); Bilirubin,Total 0.3 mg/dl (0.2-1.3); Calcium 8.3 mg/dl (8.4-10.2); Carbon Dioxide 28 mmol/L (22.0-30.0); Globulin 2.6 g/dL (1.3-3.2); Glucose 161 mg/dl (74-100); Total Protein,Serum 6.3 g/dl (6.3-8.2)
[2024-04-11 09:22] LABS: Magnesium 1.5 mg/dl (1.6-2.3)
[2024-04-11 09:26] LABS: Blood Urea Nitrogen 26 mg/dl (7-17); Creatinine Clearance Estimated 39 mL/min (50-200); Estimated Glomerular Filt Rate 68 ml/min (>60); GFR (African American) 82 ML/MIN (>60)
[2024-04-11] MEDS: 0.9 % SODIUM CHLORIDE 50 ML VIAL 100 ML IV (09:30)
[2024-04-11] MEDS: IOPAMIDOL-370 (76%);100ML BOTTLE 140 ML IV (09:30)
[2024-04-11] MEDS: SODIUM CHLORIDE 0.9% 10ML SYR (RAD ONLY) 10 ML IV (09:30)
--- NOTE | 2024-04-11 09:31 | P.CONPHA_ITS ---
Pharmacy Intervention Comments: USED SKILLED NURSING MAR TO VERIFY HOME MEDICATION LIST
--- NOTE | 2024-04-11 09:31 | HMH.PHAINT1 ---
Pharmacy Intervention Comments: USED SHELTER MAR TO VERIFY HOME MEDICATION LIST
[2024-04-11 09:34] LABS: Troponin I 0.18 ng/ml (0.00-0.034)
--- NOTE | 2024-04-11 10:01 | P.CONS_ITS ---
History of Present Illness History of present illness: Ms. Osullivan is a 88-year-old history of COPD was brought to the ER from correction complaining worsening respiratory distress and pulmonary was called for further evaluation and management. Patient opening eyes and responding to painful stimuli. Not responding appropriately verbal commands. Much of the history obtained from chart review. Progressive worsening respiratory distress and worsening lower extremity swelling. [facility] Disclaimer: The information contained in this section may have been updated after the patient was seen, as this information can be updated by other users. Medical History Depression Closed head injury Choledocholithiasis Diverticulitis UTI (urinary tract infection) Arthralgia of elbow, left Fall Elevated LFTs CHERRY (acute kidney injury) Thrombocytopenia Anemia Pancreatitis Renal insufficiency Bacterial infection due to Proteus mirabilis Respiratory failure with hypercapnia Obesity (BMI 30-39.9) Elevated troponin IVCD (intraventricular conduction defect) Severe sepsis with acute organ dysfunction Cough with hemoptysis COPD with acute exacerbation Respiratory failure with hypercapnia Chest pain Anemia Elevated troponin Healthcare-associated pneumonia Vomiting Scalp laceration Fall History of KS (myocardial infarction) Age-related physical debility Malaise Overactive bladder Rheumatic arteritis Gastroesophageal reflux disease Heart failure Chronic insomnia Anxiety Major depression in partial remission Dementia Hyperlipidemia Hypertension Surgical History Surgical history unknown Family History Other No significant family history Social History (Updated 04/11/24 @ 06:01 by Adelaide Archuleta RN) Smoking Status: Never smoker alcohol intake: never substance use type: denies use and other current occupational status: retired Travel in the last 8 weeks: None housing: correction Contact w/someone who lives/traveled outside [place] past 30 days?: No Exposure to someone with infectious disease in past 14 days?: No Do you have a fever (greater than 100.4 F or 38 C)?: No Have you tested positive for COVID-19: No Exposed to someone with COVID-19 in past 14 days?: No Do you have a sore throat?: No Do you have a cough?: No Do you have any weakness?: Yes Are you experiencing any nausea/vomitting?: No Do you have any diarrhea?: No Are you experiencing any unusual bleeding?: Yes Do you have any muscle aches/pain?: No Do you have any abdominal pain?: No Are you experiencing loss of taste or smell?: No Review of Systems Review of Systems Review of systems:: unable to obtain *Neurologic Neurologic: Reports as per [facility] Pulmonology Exam Inpatient Vital signs and Labs for Last 24 Hours: Temp Pulse Resp BP Pulse Ox O2 Del Method O2 Flow Rate 98.6 F 94 H 18 129/59 L 99 Vapotherm 25 04/11/24 07:59 04/11/24 07:59 04/11/24 07:59 04/11/24 07:59 04/11/24 09:41 04/11/24 09:41 04/11/24 09:41 FiO2 80 04/11/24 09:41 Laboratory Results - last 24 hr 04/11/24 01:30: Sodium 139, Potassium 4.5, Chloride 104, Carbon Dioxide 22, A nion Gap 17.5 H, BUN 20 H, Creatinine 0.70, Estimated Creat Clear 47, Estimated GFR 79, Est GFR ( Amer) 96, Glucose 303 H, Calcium 8.5, Total Bilirubin 0.3, AST 83 H, ALT 42, Alkaline Phosphatase 125, Troponin I 0.05 H, NT-Pro-B Natriuret Pep 3280 H, Total Protein 6.1 L, Albumin 3.7, Globulin 2.4, Albumin/Globulin Ratio 1.5, Triglycerides 146, Cholesterol 168, LDL Cholesterol Direct 102.53, VLDL Cholesterol 29, HDL Cholesterol 35 L, Cholesterol/HDL Ratio 4.8 H, Procalcitonin 0.063, Plasma/Serum Alcohol < 10 04/11/24 01:34: VBG pH 7.09 L, VBG pCO2 63.4 H, VBG pO2 70.0 H, VBG HCO3 18.6 L, VBG Total CO2 20.6 L, VBG O2 Saturation 87.4 H, VBG Base Excess -11.3 L, VBG Lactic Acid 5.5 H 04/11/24 01:35: HCV Ab GRACIA w/Rflx PCR Qn Negative, HIV Ag/Ab Combo Qual Negative 04/11/24 01:50: WBC 22.7 H*, RBC 4.51, Hgb 11.6 L, Hct 41.9, MCV 92.9, MCH 25.7 L, MCHC 27.7 L, RDW 15.9, Plt Count 241, MPV 11.1 H, Neut % (Auto) 34.5 L, Lymph % (Auto) 55.7 H, [place] % (Auto) 7.9, Eos % (Auto) 0.8, Baso % (Auto) 0.3, Neut # (Auto) 7.8, Lymph # (Auto) 12.6 H, [place] # (Auto) 1.8 H, Eos # (Auto) 0.2, Baso # (Auto) 0.1, Total Counted 100, Neutrophils % (Manual) 32 L, Band Neutrophils % 7.0, Lymphocytes % (Manual) 50, Monocytes % (Manual) 11 H, Platelet Estimate Normal, RBC Morphology Normal, PT 10.3, INR 0.93, APTT 27.0 04/11/24 02:26: Urine Color Cassandra, Urine Appearance Slightly cloudy, Urine pH 5.5, Ur Specific [place] 1.025, Urine Protein 1+ A, Urine Glucose (UA) Negative, Urine Ketones Negative, Urine Blood 3+ A, Urine Nitrate Negative, Urine Bilirubin Negative, Urine Urobilinogen 0.2, Ur Leukocyte Esterase 2+ A, Urine RBC Tntc, Urine WBC 50-100, Ur Squamous Epith Cells 10-20, Amorphous Sediment 1+, Urine Bacteria 1+, Urine Opiates Screen Positive H, Urine Methadone Screen Negative, Ur Barbituates Screen Negative, Ur Phencyclidine Scrn Negative, Ur Amphetamines Screen Negative, U Benzodiazepines Scrn Negative, Urine Cocaine Screen Negative, U Marijuana (THC) Screen Negative, Chlamy pneumoniae PCR Not detected, Adenovirus (PCR) Not detected, B. pertussis DNA (PCR) Not detected, Coronavirus OC43 (PCR) Not detected, Coronavirus HKU1 (PCR) Not detected, Coronavirus 229E (PCR) Not detected, SARS-CoV-2 (PCR) Not detected, Coronavirus NL63 (PCR) Not detected, Human Metapneumovir PCR Not detected, Influenza A (H1) PCR Not detected, Influ A (H1N1/09) PCR Detected A, Influenza A (H3) PCR Not detected, Influenza Type A (PCR) Not detected, Influenza Type B (PCR) Not detected, M. pneumoniae (PCR) Not detected, Parainfluenza 1 (PCR) Not detected, Parainfluenza 2 (PCR) Not detected, Parainfluenza 3 (PCR) Not detected, Parainfluenza 4 (PCR) Not detected, RSV (PCR) Not detected, Entero/Rhino (PCR) Not detected 04/11/24 05:39: POC Glucose 190 H 04/11/24 06:00: VBG pH 7.34, VBG pCO2 39.4, VBG pO2 93.9 H, VBG HCO3 20.8 L, VBG Total CO2 22.0 L, VBG O2 Saturation 97.0 H, VBG Base Excess -5.0 L, VBG Lactic Acid 3.3 H 04/11/24 06:11: WBC 12.6 H D, RBC 4.16 L, Hgb 10.8 L, Hct 37.9, MCV 91.1, MCH 26.0 L, MCHC 28.5 L, RDW 15.9, Plt Count 179 D, MPV 10.5 H, Neut % (Auto) 88.6 H, Lymph % (Auto) 3.9 L, [place] % (Auto) 6.8, Eos % (Auto) 0.0 L, Baso % (Auto) 0.1, Neut # (Auto) 11.2 H, Lymph # (Auto) 0.5 L, [place] # (Auto) 0.9, Eos # (Auto) 0.0, Baso # (Auto) 0.0, Sodium 141, Potassium 3.9, Chloride 101, Carbon Dioxide 28, Anion Gap 15.9 H, BUN 26 H D, Creatinine 0.80, Estimated Creat Clear 39, Estimated GFR 68, Est GFR ( Amer) 82, Glucose 161 H D, Calcium 8.3 L, M agnesium 1.5 L, Total Bilirubin 0.3, AST 170 H D, ALT 88 H D, Alkaline Phosphatase 158 H, Total Protein 6.3, Albumin 3.7, Globulin 2.6, Albumin/Globulin Ratio 1.4 04/11/24 07:48: Lactate 3.0 H, Troponin I 0.18 H I & O for Labs for Last 24 Hours: Intake & Output 04/08/24 04/09/24 04/10/24 04/11/24 23:59 23:59 23:59 23:59 Output Total 750 / 750 Balance -750 / -750 Weight 140 lb 4.8 oz Constitutional: Present severe distress Head: Present normocephalic and atraumatic ENT: Present normal exam, normal oropharynx and mucous membranes moist Neck: Present normal inspection and full ROM Respiratory: Present respiratory distress, stridor and diminished air movement; Absent wheezes or able to speak in complete sentences Cardiac: Present S1/S2, Tachycardia and radial pulses present GI: Present soft and distention; Absent tenderness or guarding Rectal (female): Present deferred (female): Present deferred Skin: Present intact; Absent cyanosis or jaundice Neuro: Absent alert, awake or oriented x 3 Extremities: Present normal inspection; Absent clubbing or cyanosis Meds Home Medications and Allergies Home Medications ?Medication ?Instructions ?Recorded ?Confirmed ?Type bisacodyl 10 mg rectal suppository 10 mg [place] DAILYP PRN Constipation 12/11/19 04/11/24 History docusate sodium 250 mg capsule 250 mg PO DAILY 12/11/19 04/11/24 History melatonin 3 mg capsule 3 mg PO HS 12/11/19 04/11/24 History ondansetron HCl 4 mg tablet 4 mg PO Q6HP PRN Nausea And 12/11/19 04/11/24 History (Zofran) Vomiting aspirin 81 mg chewable tablet 81 mg PO DAILY 07/20/21 04/11/24 History clopidogrel 75 mg tablet 75 mg PO DAILY 07/20/21 04/11/24 History sertraline 50 mg tablet 50 mg PO DAILY 07/20/21 04/11/24 History prednisone 10 mg tablet 10 mg PO DAILY 01/13/23 04/11/24 History sodium chloride 0.65 % nasal spray 1 spray intranasal BID 02/27/23 04/11/24 History aerosol (Deep Sea Nasal) guaifenesin 100 mg/5 mL oral 200 mg PO Q6HP PRN Congestion 01/11/24 04/11/24 History liquid (Radha-Tussin) ropinirole 2 mg tablet 2 mg PO BID 01/11/24 04/11/24 History sertraline 25 mg tablet 25 mg PO DAILY 01/11/24 04/11/24 History benzonatate 100 mg capsule 100 mg PO TIDP PRN Cough 04/05/24 04/11/24 History gabapentin 100 mg capsule 100 mg PO BID #60 caps 04/06/24 04/11/24 Rx hydrocodone 5 mg-acetaminophen 325 1 tab PO BID #60 tabs 04/06/24 04/11/24 Rx mg tablet New Prescriptions to Start Prescriptions: Allergies Allergy/AdvReac Type Severity Reaction Status Date / Time alendronate sodium (From Allergy Unknown Verified 04/05/24 09:35 Fosamax) NSAIDS (Non-Steroidal Allergy Unknown Verified 04/05/24 09:35 Anti-Inflamma Penicillins Allergy Unknown Verified 04/05/24 09:35 Results Laboratory Findings 04/11/24 06:11 04/11/24 06:11 PT/INR, D-dimer PT 10.3 seconds (10.1-12.5) 04/11/24 01:50 INR 0.93 (0.9-1.1) 04/11/24 01:50 Abnormal lab findings: Abnormal Labs 04/11/24 04/11/24 04/11/24 01:30 01:34 01:50 WBC 22.7 H* RBC Hgb 11.6 L MCH 25.7 L MCHC 27.7 L MPV 11.1 H Neut % (Auto) 34.5 L Lymph % (Auto) 55.7 H Eos % (Auto) Neut # (Auto) Lymph # (Auto) 12.6 H [place] # (Auto) 1.8 H Neutrophils % (Manual) 32 L Monocytes % (Manual) 11 H VBG pH 7.09 L VBG pCO2 63.4 H VBG pO2 70.0 H VBG HCO3 18.6 L VBG Total CO2 20.6 L VBG O2 Saturation 87.4 H VBG Base Excess -11.3 L VBG Lactic Acid 5.5 H Anion Gap 17.5 H BUN 20 H Glucose 303 H POC Glucose Lactate Calcium Magnesium AST 83 H ALT Alkaline Phosphatase Troponin I 0.05 H NT-Pro-B Natriuret Pep 3280 H Total Protein 6.1 L HDL Cholesterol 35 L Cholesterol/HDL Ratio 4.8 H Urine Protein Urine Blood Ur Leukocyte Esterase Urine Opiates Screen Influ A (H1N1/09) PCR 04/11/24 04/11/24 04/11/24 02:26 05:39 06:00 WBC RBC Hgb MCH MCHC MPV Neut % (Auto) Lymph % (Auto) Eos % (Auto) Neut # (Auto) Lymph # (Auto) [place] # (Auto) Neutrophils % (Manual) Monocytes % (Manual) VBG pH VBG pCO2 VBG pO2 93.9 H VBG HCO3 20.8 L VBG Total CO2 22.0 L VBG O2 Saturation 97.0 H VBG Base Excess -5.0 L VBG Lactic Acid 3.3 H Anion Gap BUN Glucose POC Glucose 190 H Lactate Calcium Magnesium AST ALT Alkaline Phosphatase Troponin I NT-Pro-B Natriuret Pep Total Protein HDL Cholesterol Cholesterol/HDL Ratio Urine Protein 1+ A Urine Blood 3+ A Ur Leukocyte Esterase 2+ A Urine Opiates Screen Positive H Influ A (H1N1/09) PCR Detected A 04/11/24 04/11/24 06:11 07:48 WBC 12.6 H D RBC 4.16 L Hgb 10.8 L MCH 26.0 L MCHC 28.5 L MPV 10.5 H Neut % (Auto) 88.6 H Lymph % (Auto) 3.9 L Eos % (Auto) 0.0 L Neut # (Auto) 11.2 H Lymph # (Auto) 0.5 L [place] # (Auto) Neutrophils % (Manual) Monocytes % (Manual) VBG pH VBG pCO2 VBG pO2 VBG HCO3 VBG Total CO2 VBG O2 Saturation VBG Base Excess VBG Lactic Acid Anion Gap 15.9 H BUN 26 H D Glucose 161 H D POC Glucose Lactate 3.0 H Calcium 8.3 L Magnesium 1.5 L AST 170 H D ALT 88 H D Alkaline Phosphatase 158 H Troponin I 0.18 H NT-Pro-B Natriuret Pep Total Protein HDL Cholesterol Cholesterol/HDL Ratio Urine Protein Urine Blood Ur Leukocyte Esterase Urine Opiates Screen Influ A (H1N1/09) PCR Assessment and Plan *Assessment and plan (1) Acute hypoxic respiratory failure: Status: Acute Category: Medical Code(s): J96.01 - Acute respiratory failure with hypoxia (2) Pneumonia: Status: Acute Qualifiers: Pneumonia type: due to influenza A virus Qualified Code(s): J10.00 - Influenza due to other identified influenza virus with unspecified type of pneumonia Category: Medical Code(s): J18.9 - Pneumonia, unspecified organism (3) Influenza A (H1N1): Status: Acute Category: Medical Code(s): J10.1 - Influenza due to other identified influenza virus with other respiratory manifestations Plan Ms. Osullivan is a 88-year-old history of COPD was brought to the ER from correction complaining worsening respiratory distress and pulmonary was called for further evaluation and management. Patient opening eyes and responding to painful stimuli. Not responding appropriately verbal commands. Much of the history obtained from chart review. Progressive worsening respiratory distress and worsening lower extremity swelling. CTA on admission, no evidence of pulmonary embolism elevated right hemidiaphragm, bilateral lower lobe consolidative changes right greater than left along with bilateral effusions right greater than left Neutrophilic predominant leukocytosis. Influenza A positive on PCR. ABG upon admission severe hypercarbic respiratory failure, improving with a pH of 7.34 and a pCO2 of 39.4. Receiving ceftriaxone and doxycycline. Plan:- -Initiate oseltamavir x 5 days -Continue ceftriaxone and doxycycline pending blood and sputum culture results and nasal MRSA screen -Continue high flow nasal cannula oxygen supplementation to maintain O2 saturation of 90% and above complaint 25 L 60%. -DuoNebs 4 times daily scheduled -Volume optimization as per primary team and cardiology -No need for thoracentesis at this point of time. Will follow.
[2024-04-11] MEDS: DOXYCYCLINE HYCLATE 100 MG in 0.9 % SODIUM CHLORIDE 250 ML 166.667 MG IV ×2 (10:08→20:45)
[2024-04-11 10:15] LABS: Reflex Lactic (2 hrs) Add Lactic Reflex
[2024-04-11 10:47] LABS: Lactic Acid Follow up (RFLX 2) 2.4 mmol/L (0.7-2.1)
--- NOTE | 2024-04-11 10:54 | HMH.PTWOUND ---
Rehab Inpt Wound Evaluation Rehab IP Wound Evaluation Start: 04/11/24 06:21 Freq: ONCE Status: Active Protocol: Document 04/11/24 10:48 GORDON (Rec: 04/11/24 10:54 GORDON [id number]) Rehab PT Wound Assessment Subjective Subjective This [facility]dc patient, he began to have some difficulty breathing was transported on oxygen from the [facility] and an ambulance to the ER., .From report she was doing very well talking in the back of the ambulance at that point in time the patient made a sudden change for the worse became unresponsive respiratory distress.. Patient was brought into the emergency room in a condition with low oxygen saturations., Patient also being nonresponsive with a right- sided gaze with both eyes. Pt also presented with low penelope score upon admission which necessitates IP PT wound care order per protocols. Pt has no current wounds and has no further need for inpatient wound care at this time. Plan/Recommendation Comment Nsg to continue appropriate pressure relief per protocol. Eval Complexity Eval Charge Codes 69085 - High Complexity PHYSICIAN CERTIFICATION: I certify the specified therapy services for Kathy Osullivan are required, authorized, and reviewed every 30 days.
[2024-04-11 11:23] LABS: POC Glucose,Bedside 153 (70-110)
--- NOTE | 2024-04-11 13:08 | CA_ITS ---
APPROVED REPORT EXAM: Comprehensive 2D, Doppler, and color-flow Echocardiogram Analytical Lab Analyst: Sandra Streeter RT(R) Ht: 4 ft 11 in Wt: 140lbs BSA: 1.58 BP: 129/59 mmHg Indications: SOA, HTN, hyperlipidemia, HFpEF, Flu A, respiratory distress, dementia, UTI 2D Dimensions EF AP4 43.30 % GL Strain -11.2 % M-Mode Dimensions RVDd 3.59 cm (0.9-2.6) LA Diam 3.13 cm (1.9-4.0) LVDd 4.05 cm (3.5-5.7) LVDs 3.44 cm (3.5-5.7) IVSd 1.02 cm (0.6-1.1) PWd 0.91 cm (0.6-1.1) EF (Teich) 32.30% FS 15.10% EDV (Teich) 72.10 mL ESV (Teich) 48.80 mL LV Diastology E Decel Time 213 (160-240 msec) E/A Ratio 0.6 Aortic Valve RITA Index 1.20 cm2/m2 AoV Peak Marcelo. 150.0 (50-130 cm/s) AO Peak GR. 9.10 mmHg AO Mean GR. 4.40 (<5 mmHg) AO VTI 25.3 (18-25 cm) RITA (VTI) 1.95 (2.5-4.5 cm2) Mitral Valve MV E Max Marcelo. 66.0 (40-130 cm/s) MV A Velocity 109.0 (40-130 cm/s) E/A Ratio 0.60 MV PHT 62.0 ms Left Ventricle The left ventricle is normal size. The left ventricular systolic function is low normal. There is increased LV wall thickness. There is borderline global hypokinesis. Transmitral Doppler flow pattern suggests impaired LV relaxation. LVEF is 50%. Right Ventricle Right ventricle is mildly dilated. Right ventricle is mildly hypokinetic. Atria The left atrium size is normal. The right atrium size is normal. There is no Doppler evidence of interatrial shunt. Aortic Valve The aortic valve is mildly thickened. There is no aortic valvular stenosis. No aortic regurgitation is present. Mitral Valve The mitral valve is normal in structure. No evidence of mitral valve stenosis. Mild mitral regurgitation. Tricuspid Valve The tricuspid valve leaflets are thin and pliable. Trace tricuspid regurgitation. There is insufficient TR jet to estimate RVSP. Pulmonic Valve The pulmonary valve is normal in structure. Trace pulmonic regurgitation. Great Vessels The aortic root is normal in size. IVC is normal in size and collapses >50% with inspiration. Pericardium There is no pericardial effusion. Other Information Study Quality: Fair Conclusion Low normal LV systolic function. Mild RV dilation with mild reduction in RV function. Mild MR. Electronically signed by : Juany Ochoa MD 04/13/2024 09:48:07
[2024-04-11] MEDS: OSELTAMIVIR 75MG CAPSULE 75 MG PO (13:13)
--- NOTE | 2024-04-11 13:21 | DIET.NUTRFU ---
Patient more alert today, able to eat breakfast. Reviewed NH chart, she is on MSOFT ground/NTL with sippy cup, divided plate and foam silverware. Patient typically feds self but family is assisting at this time. Spoke to family at bedside and normally patient is a good eater, with no significant wt changes. This RD saw her back in 01/13 with no dietary concerns. Patient also flagged for penelope score, she is at increased risk d/t dependence on staff to turn and reposition her.
--- NOTE | 2024-04-11 14:33 | P.CONCA_ITS ---
History of Present Illness History of Present Illness Consult date: 04/11/24 Requesting physician: Hermann Segura Consult reason: congestive heart failure Chief complaint: confusion, soa History of present illness: 88-year-old white female with history of nonobstructive CAD and diastolic dysfunction. She has dementia and lives in a intermediate. She came to the emergency room with worsening shortness of breath and altered mental status. Patient is very altered at this time and cannot provide any additional history so history is gathered from chart and family who is bedside. Workup revealed patient is septic with influenza A, pneumonia, UTI. She is DNR and DNI. We are consulted for questionable volume overload. She does have moderate right and mild left pleural effusions, proBNP 3000. Mild troponin elevation 0.05 up to 0.18. She has diuresed 2.3 L since admission. Creatinine is stable at 0.8. EKG shows left bundle branch block which is unchanged from 1 year prior. [facility] Disclaimer: The information contained in this section may have been updated after the patient was seen, as this information can be updated by other users. Medical History Depression Closed head injury Choledocholithiasis Diverticulitis UTI (urinary tract infection) Arthralgia of elbow, left Fall Elevated LFTs CHERRY (acute kidney injury) Thrombocytopenia Anemia Pancreatitis Renal insufficiency Bacterial infection due to Proteus mirabilis Respiratory failure with hypercapnia Obesity (BMI 30-39.9) Elevated troponin IVCD (intraventricular conduction defect) Severe sepsis with acute organ dysfunction Cough with hemoptysis COPD with acute exacerbation Respiratory failure with hypercapnia Chest pain Anemia Elevated troponin Healthcare-associated pneumonia Vomiting Scalp laceration Fall History of TN (myocardial infarction) Age-related physical debility Malaise Overactive bladder Rheumatic arteritis Gastroesophageal reflux disease Heart failure Chronic insomnia Anxiety Major depression in partial remission Dementia Hyperlipidemia Hypertension Surgical History Surgical history unknown Family History Other No significant family history Social History Smoking Status: Never smoker alcohol intake: never substance use type: denies use and other current occupational status: retired Travel in the last 8 weeks: None housing: intermediate Contact w/someone who lives/traveled outside [place] past 30 days?: No Exposure to someone with infectious disease in past 14 days?: No Do you have a fever (greater than 100.4 F or 38 C)?: No Have you tested positive for COVID-19: No Exposed to someone with COVID-19 in past 14 days?: No Do you have a sore throat?: No Do you have a cough?: No Do you have any weakness?: Yes Are you experiencing any nausea/vomitting?: No Do you have any diarrhea?: No Are you experiencing any unusual bleeding?: Yes Do you have any muscle aches/pain?: No Do you have any abdominal pain?: No Are you experiencing loss of taste or smell?: No Review of Systems Review of Systems Review of systems:: unable to obtain *Neurologic Neurologic: Reports as per HPI Exam Constitutional Comments: Patient has altered mental status and is combative per family. Patient declines physical exam. Monitor reveals sinus rhythm in the 90s. She is alert but not oriented. No acute respiratory distress. Meds Home Medications and Allergies Home Medications ?Medication ?Instructions ?Recorded ?Confirmed ?Type bisacodyl 10 mg rectal suppository 10 mg CO DAILYP PRN Constipation 12/11/19 04/11/24 History docusate sodium 250 mg capsule 250 mg PO DAILY 12/11/19 04/11/24 History melatonin 3 mg capsule 3 mg PO HS 12/11/19 04/11/24 History ondansetron HCl 4 mg tablet 4 mg PO Q6HP PRN Nausea And 12/11/19 04/11/24 History (Zofran) Vomiting aspirin 81 mg chewable tablet 81 mg PO DAILY 07/20/21 04/11/24 History clopidogrel 75 mg tablet 75 mg PO DAILY 07/20/21 04/11/24 History sertraline 50 mg tablet 50 mg PO DAILY 07/20/21 04/11/24 History prednisone 10 mg tablet 10 mg PO DAILY 01/13/23 04/11/24 History sodium chloride 0.65 % nasal spray 1 spray intranasal BID 02/27/23 04/11/24 History aerosol (Deep Sea Nasal) guaifenesin 100 mg/5 mL oral 200 mg PO Q6HP PRN Congestion 01/11/24 04/11/24 History liquid (Radha-Tussin) ropinirole 2 mg tablet 2 mg PO BID 01/11/24 04/11/24 History sertraline 25 mg tablet 25 mg PO DAILY 01/11/24 04/11/24 History benzonatate 100 mg capsule 100 mg PO TIDP PRN Cough 04/05/24 04/11/24 History gabapentin 100 mg capsule 100 mg PO BID #60 caps 04/06/24 04/11/24 Rx hydrocodone 5 mg-acetaminophen 325 1 tab PO BID #60 tabs 04/06/24 04/11/24 Rx mg tablet New Prescriptions to Start Prescriptions: Allergies Allergy/AdvReac Type Severity Reaction Status Date / Time alendronate sodium (From Allergy Unknown Verified 04/05/24 09:35 Fosamax) NSAIDS (Non-Steroidal Allergy Unknown Verified 04/05/24 09:35 Anti-Inflamma Penicillins Allergy Unknown Verified 04/05/24 09:35 Assessment and Plan *Assessment and plan (1) Acute on chronic heart failure with preserved ejection fraction (HFpEF): Status: Acute Category: Medical Code(s): I50.33 - Acute on chronic diastolic (congestive) heart failure (2) Pneumonia: Status: Acute Qualifiers: Pneumonia type: due to influenza A virus Qualified Code(s): J10.00 - Influenza due to other identified influenza virus with unspecified type of pneumonia Category: Medical Code(s): J18.9 - Pneumonia, unspecified organism (3) Influenza A (H1N1): Status: Acute Category: Medical Code(s): J10.1 - Influenza due to other identified influenza virus with other respiratory manifestations (4) Sepsis: Status: Acute Qualifiers: Acute respiratory failure type: with hypoxia Sepsis acute organ dysfunction status: with acute organ dysfunction Sepsis type: sepsis due to unspecified organism Severe sepsis acute organ dysfunction type: acute respiratory failure Severe sepsis shock status: with septic shock Qualified Code(s): A41.9 - Sepsis, unspecified organism; R65.21 - Severe sepsis with septic shock; J96.01 - Acute respiratory failure with hypoxia Category: Medical Code(s): A41.9 - Sepsis, unspecified organism Plan HFpEF - bilat effusions and ProBNP 3k - ECHO in Oct showed nml LV fxn, LVH 1.3, grade 2 DD, mild to mod RV dilation - she has diuresed 2.3L on Bumex 2mg BID, continue this for now - will repeat ECHO - hold on ARB/SGLT-2 due to sepsis Sepsis, Flu-A, PNA, UTI - pt with AMS, on antibiotics - she is DNR/DNI Altered Mental Status - dementia at baseline with acute delirium in setting of sepsis
--- NOTE | 2024-04-11 16:02 | PC.NURSE ---
Patient alert to self only, vapotherm weaned to 25L60% and patient tolerating well. BP have been low during the day, md aware. Patient not symptomatic and ordered to watch for now. Lung sounds diminished. Echo pending.
[2024-04-11 17:00] LABS: POC Glucose,Bedside 132 (70-110)
[2024-04-11] MEDS: ONDANSETRON 4MG/2ML VIAL 4 MG IV (17:06)
[2024-04-11] MEDS: IPRATROPIUM/ALBUTEROL 3 ML NEB IH ×2 (18:32→23:40)
[2024-04-11] MEDS: OSELTAMIVIR PHOSPHATE 6MG/ML ORAL SUSP 60ML 30 MG PO (20:45)
[2024-04-11] MEDS: SODIUM CHLORIDE 0.9% 10ML VIAL 8 ML IV (20:45)
--- NOTE | 2024-04-11 22:24 | P.PN_ITS ---
Subjective *Date: 04/12/24 *Time: 01:52 Exam Data for Last 24 hours Vital signs and Labs for Last 24 Hours: Temp Pulse Resp BP Pulse Ox O2 Del Method O2 Flow Rate 97.8 F 89 20 97/47 L 93 L Vapotherm 04/11/24 20:00 04/11/24 22:00 04/11/24 22:00 04/11/24 22:00 04/11/24 22:00 04/11/24 22:00 04/11/24 18:35 FiO2 50 04/11/24 18:35 Laboratory Results - last 24 hr 04/11/24 01:30: Sodium 139, Potassium 4.5, Chloride 104, Carbon Dioxide 22, Anion Gap 17.5 H, BUN 20 H, Creatinine 0.70, Estimated Creat Clear 47, Estimated GFR 79, Est GFR ( Amer) 96, Glucose 303 H, Calcium 8.5, Total Bilirubin 0.3, AST 83 H, ALT 42, Alkaline Phosphatase 125, Troponin I 0.05 H, NT-Pro-B Natriuret Pep 3280 H, Total Protein 6.1 L, Albumin 3.7, Globulin 2.4, Albumin/Globulin Ratio 1.5, Triglycerides 146, Cholesterol 168, LDL Cholesterol Direct 102.53, VLDL Cholesterol 29, HDL Cholesterol 35 L, Cholesterol/HDL Ratio 4.8 H, Procalcitonin 0.063, Plasma/Serum Alcohol < 10 04/11/24 01:34: VBG pH 7.09 L, VBG pCO2 63.4 H, VBG pO2 70.0 H, VBG HCO3 18.6 L, VBG Total CO2 20.6 L, VBG O2 Saturation 87.4 H, VBG Base Excess -11.3 L, VBG Lactic Acid 5.5 H 04/11/24 01:35: HCV Ab GRACIA w/Rflx PCR Qn Negative, HIV Ag/Ab Combo Qual Negative 04/11/24 01:50: WBC 22.7 H*, RBC 4.51, Hgb 11.6 L, Hct 41.9, MCV 92.9, MCH 25.7 L, MCHC 27.7 L, RDW 15.9, Plt Count 241, MPV 11.1 H, Neut % (Auto) 34.5 L, Lymph % (Auto) 55.7 H, [place] % (Auto) 7.9, Eos % (Auto) 0.8, Baso % (Auto) 0.3, Neut # (Auto) 7.8, Lymph # (Auto) 12.6 H, [place] # (Auto) 1.8 H, Eos # (Auto) 0.2, Baso # (Auto) 0.1, Total Counted 100, Neutrophils % (Manual) 32 L, Band Neutrophils % 7.0, Lymphocytes % (Manual) 50, Monocytes % (Manual) 11 H, Platelet Estimate Normal, RBC Morphology Normal, PT 10.3, INR 0.93, APTT 27.0 04/11/24 02:26: Urine Color Cassandra, Urine Appearance Slightly cloudy, Urine pH 5.5, Ur Specific [place] 1.025, Urine Protein 1+ A, Urine Glucose (UA) Negative, Urine Ketones Negative, Urine Blood 3+ A, Urine Nitrate Negative, Urine Bilirubin Negative, Urine Urobilinogen 0.2, Ur Leukocyte Esterase 2+ A, Urine RBC Tntc, Urine WBC 50-100, Ur Squamous Epith Cells 10-20, Amorphous Sediment 1+, Urine Bacteria 1+, Urine Opiates Screen Positive H, Urine Methadone Screen Negative, Ur Barbituates Screen Negative, Ur Phencyclidine Scrn Negative, Ur Amphetamines Screen Negative, U Benzodiazepines Scrn Negative, Urine Cocaine Screen Negative, U Marijuana (THC) Screen Negative, Chlamy pneumoniae PCR Not detected, Adenovirus (PCR) Not detected, B. pertussis DNA (PCR) Not detected, Coronavirus OC43 (PCR) Not detected, Coronavirus HKU1 (PCR) Not detected, Coronavirus 229E (PCR) Not detected, SARS-CoV-2 (PCR) Not detected, Coronavirus NL63 (PCR) Not detected, Human Metapneumovir PCR Not detected, Influenza A (H1) PCR Not detected, Influ A (H1N1/09) PCR Detected A, Influenza A (H3) PCR Not detected, Influenza Type A (PCR) Not detected, Influenza Type B (PCR) Not detected, M. pneumoniae (PCR) Not detected, Parainfluenza 1 (PCR) Not detected, Parainfluenza 2 (PCR) Not detected, Parainfluenza 3 (PCR) Not detected, Parainfluenza 4 (PCR) Not detected, RSV (PCR) Not detected, Entero/Rhino (PCR) Not detected 04/11/24 05:39: POC Glucose 190 H 04/11/24 06:00: VBG pH 7.34, VBG pCO2 39.4, VBG pO2 93.9 H, VBG HCO3 20.8 L, VBG Total CO2 22.0 L, VBG O2 Saturation 97.0 H, VBG Base Excess -5.0 L, VBG Lactic Acid 3.3 H 04/11/24 06:11: WBC 12.6 H D, RBC 4.16 L, Hgb 10.8 L, Hct 37.9, MCV 91.1, MCH 26.0 L, MCHC 28.5 L, RDW 15.9, Plt Count 179 D, MPV 10.5 H, Neut % (Auto) 88.6 H, Lymph % (Auto) 3.9 L, [place] % (Auto) 6.8, Eos % (Auto) 0.0 L, Baso % (Auto) 0.1, Neut # (Auto) 11.2 H, Lymph # (Auto) 0.5 L, [place] # (Auto) 0.9, Eos # (Auto) 0.0, Baso # (Auto) 0.0, Sodium 141, Potassium 3.9, Chloride 101, Carbon Dioxide 28, Anion Gap 15.9 H, BUN 26 H D, Creatinine 0.80, Estimated Creat Clear 39, Estimated GFR 68, Est GFR ( Amer) 82, Glucose 161 H D, Calcium 8.3 L, Magnesium 1.5 L, Total Bilirubin 0.3, AST 170 H D, ALT 88 H D, Alkaline Phosphatase 158 H, Total Protein 6.3, Albumin 3.7, Globulin 2.6, Albumin/Globulin Ratio 1.4 04/11/24 07:48: Lactate 3.0 H, Troponin I 0.18 H 04/11/24 10:25: Lactate 2.4 H 04/11/24 11:04: POC Glucose 153 H 04/11/24 16:48: POC Glucose 132 H I & O for Last 24 hours: Intake & Output 04/08/24 04/09/24 04/10/24 04/11/24 23:59 23:59 23:59 23:59 Intake Total 360 / 360 Output Total 3325 / 3325 Balance -2965 / -2965 Weight 63.63 kg Assessment and Plan *Assessment and plan (1) Acute on chronic heart failure with preserved ejection fraction (HFpEF): Status: Acute Category: Medical Code(s): I50.33 - Acute on chronic diastolic (congestive) heart failure (2) Acute hypoxic respiratory failure: Status: Acute Category: Medical Code(s): J96.01 - Acute respiratory failure with hypoxia (3) Hypercarbia: Status: Acute Category: Medical Code(s): R06.89 - Other abnormalities of breathing (4) UTI (urinary tract infection): Status: Acute Qualifiers: Hematuria presence: without hematuria Urinary tract infection type: acute cystitis Qualified Code(s): N30.00 - Acute cystitis without hematuria Category: Medical Code(s): N39.0 - Urinary tract infection, site not specified (5) Influenza A (H1N1): Status: Acute Category: Medical Code(s): J10.1 - Influenza due to other identified influenza virus with other respiratory manifestations Plan Kathy Osullivan is a 88-year-old female who presents from [facility] with shortness of breath, acute metabolic encephalopathy and was admitted for acute hypoxic, hypercapnic respiratory failure secondary to COPD exacerbation, influenza A, multifocal pneumonia, HFpEF exacerbation. #Acute hypoxic, hypercapnic respiratory failure #Acute metabolic encephalopathy ? Currently requiring Vapotherm 25 L. Will wean as tolerated. ? Secondary to COPD exacerbation, influenza A, multifocal pneumonia, HFpEF exacerbation. See separate problems. ? CTA negative for PE. ? Acute metabolic encephalopathy likely secondary to CO2 narcosis now resolved. #Sepsis #Multifocal pneumonia #UTI #Influenza A #Bibasilar pleural effusions ? Initial WBC 22.7, with tachycardia, tachypnea, hypoxia. UA grossly abnormal. ? CTA chest shows multifocal pneumonia. ? WBC improved to 12.6 today. Tachycardia, tachypnea resolving. ? Continue ceftriaxone, azithromycin day 1/5. ? Continue Tamiflu day 1/5. ? Follow-up sputum, urine, blood cultures, MRSA screen. ? Pulmonology consulted and assisting with care as above. No plan for thoracentesis at this time. #HFpEF exacerbation ? Initial BNP 3280 with volume overload. ? Diuresing well, net -2.7 L during admission. ? Continue IV Bumex 2 mg twice daily. Consider MRA tomorrow. ? Cardiology consulted, pending further recommendations. ? Follow-up ECHO. #Acute COPD exacerbation ? DuoNebs every 6 hours, Pulmicort twice daily. ? Pulmonology did not recommend continuing steroids at this time. Can reconsider tomorrow if needed. ? Will continue home prednisone 10 mg daily to avoid withdrawal. #Anxiety/depression ? Resume home sertraline 75 mg daily. #Restless leg syndrome ? Resume home ropinirole. Will hold off on gabapentin 100 mg for now to reduce polypharmacy in advanced age. DNR/DNI DVT prophylaxis: Lovenox 40 mg
[2024-04-12] VITALS (39 sets, daily range): BP systolic 91–145; BP diastolic 43–79; PULSE 75–145; RESP 14–29; TEMP 36.4–36.6; O2SAT 86–100; BMI 26.5
[2024-04-12] MEDS: CEFTRIAXONE SODIUM 2 GM in 0.9 % SODIUM CHLORIDE 100 ML IV (01:03)
[2024-04-12] MEDS: GUAIFENESIN/DEXTROMETHORPHAN 200MG/20MG 10ML UDC 10 ML PO ×2 (02:02→12:59)
--- NOTE | 2024-04-12 02:37 | XR_ITS ---
PROCEDURE INFORMATION: Exam: XR Chest Exam date and time: 04/12/2024 2:44 AM Age: 88 years old Clinical indication: Shortness of breath; Additional info: SOA TECHNIQUE: Imaging protocol: Radiologic exam of the chest. Views: 1 view. COMPARISON: CT ANGIO CHEST PE PROTOCOL 04/11/2024 9:14 AM FINDINGS: Lungs: Right mid lung zone opacity. Left basilar opacity. Pleural spaces: Moderate right pleural effusion. Tiny left pleural effusion. Heart/Mediastinum: Unremarkable. No cardiomegaly. Bones/joints: Unremarkable. IMPRESSION: 1. Bilateral pleural effusions. 2. Bilateral atelectasis/infiltration.
[2024-04-12] MEDS: METHYLPREDNISOLONE SOD SUCC 40MG VIAL 40 MG IV (02:45)
[2024-04-12 03:11] LABS: ABG Oxygen Saturation 99 % (90-100); ABG PCO2 46.1 mmhg (35.0-45.0); ABG PH 7.39 mmol/L (7.35-7.45); ABG PO2 154.2 mmhg (80-100); ABG TCO2 28.4 mmhg (23-27)
[2024-04-12 03:12] LABS: Allen's Test Acceptable; Oxygen VAPO 40L 100% %; Source Left Radial
[2024-04-12] MEDS: BUMETANIDE 1MG/4ML VIAL 2 MG IV ×2 (03:17→09:15)
--- NOTE | 2024-04-12 04:14 | PC.NURSE ---
Pt spo2 reading upper 70s. Pt assessed and found to be in no obvious respiratory distress. Vapotherm in place @ 25L/50%. RT notified and came to BS. Titrated up to 40L/100%. Spo2 mid 80s. Non rebreather placed on patient bringing spo2 up to 88%. MD made aware and came to bedside. Verbal order for stat chest xray, 40mg Solumedrol, and to give missed afternoon dose of 2mg Bumex. ABG obtained. Pt stabilized. Spo2 99% on 40L/100% with non rebreather. Pt now on 40L/90% tolerating well with sat 90%.
--- NOTE | 2024-04-12 04:51 | ECG_ITS ---
APPROVED REPORT Exam: Resting ECG HR:146 bpm ECG Measurements Heart Rate 146 AXES QRSd 140 QRS -44 QT 326 T 150 QTc 410 Conclusion ATRIAL FIBRILLATION WITH RAPID VENTRICULAR RESPONSE LEFT AXIS DEVIATION [QRS AXIS < -30] LEFT BUNDLE BRANCH BLOCK [120+ ms QRS DURATION, 80+ ms Q/S IN V1/V2, 85+ ms R IN I/aVL/V5/V6] ABNORMAL ECG UNCONFIRMED REPORT Electronically signed by : Robin Carvajal MD 04/12/2024 19:19:52
[2024-04-12] MEDS: DIGOXIN 0.25MG/ML 2ML AMPUL 500 MCG IV (05:18)
[2024-04-12 05:36] LABS: Basophils % 0.2 % (0.1-2.0); Eosinophils % 0.1 % (0.1-12.0); Hematocrit 30.4 % (37.0-47.0); Lymphocytes # 0.8 K/mm3 (0.7-4.5); Lymphocytes % 6.1 % (10-50); Mean Corpuscular HGB Conc 30.6 g/dL (31.8-35.4); Mean Corpuscular Hemoglobin 26.1 pg (27.0-31.2); Mean Corpuscular Volume 85.2 fl (81-99); Mean Platelet Volume 11.2 fl (7.4-10.4); Monocytes # 0.4 K/mm3 (0.1-1.0); Monocytes % 2.7 % (1.7-9.3); Neutrophils # 12.1 K/mm3 (1.8-7.8); Neutrophils % 90.5 % (37.0-80.0); Platelet Count 151 K/mm3 (142-424); Red Blood Count 3.57 M/mm3 (4.20-5.40); Red Cell Distribution Width 15.8 % (11.5-17.5); White Blood Count 13.3 K/mm3 (4.8-10.8)
[2024-04-12 05:37] LABS: MANUAL DIFFERENTIAL MANUAL DIFFERENTIAL (MANUAL DIFF)
--- NOTE | 2024-04-12 05:37 | PC.NURSE ---
Pt noted to have a rhythm change on telemetry with hear rate in 140s. EKG obtained-read as AFIB RVR. Manual BP 98/50. made aware. States to give 500mcg digoxin once.
[2024-04-12 05:44] LABS: Hemoglobin 9.7 g/dL (12.2-16.2)
[2024-04-12 06:15] LABS: Alanine Aminotransferase 65 U/L (12-78); Albumin Level 3.6 g/dl (3.5-5.0); Albumin/Globulin Ratio 1.5 (1.1-1.8); Alkaline Phosphatase 121 U/L (38-126); Anion Gap 18.3 mEq/L (5-15); Aspartate Amino Transferase 96 U/L (14-36); Bilirubin,Total 0.6 mg/dl (0.2-1.3); Blood Urea Nitrogen 41 mg/dl (7-17); Calcium 7.9 mg/dl (8.4-10.2); Carbon Dioxide 25 mmol/L (22.0-30.0); Chloride 100 mmol/L (98-107); Creatinine Clearance Estimated 38 mL/min (50-200); Estimated Glomerular Filt Rate 52 ml/min (>60); GFR (African American) 63 ML/MIN (>60); Globulin 2.4 g/dL (1.3-3.2); Glucose 102 mg/dl (74-100); Magnesium 1.6 mg/dl (1.6-2.3); Potassium 4.3 mmoL/L (3.5-5.1); Sodium 139 mmol/L (136-145)
[2024-04-12 06:20] LABS: Lymphocytes % 7 % (10-50); Monocytes % 1 % (2-9); Neutrophils % 92 % (42-76); Platelet Estimate Normal; RBC Morphology Normal; Total Cells Counted 100
[2024-04-12] MEDS: IPRATROPIUM/ALBUTEROL 3 ML NEB IH ×3 (06:28→18:00)
[2024-04-12 06:43] LABS: POC Glucose,Bedside 144 (70-110)
[2024-04-12] MEDS: ENOXAPARIN 60MG/0.6ML SYRINGE 60 MG SUBCUT (09:15)
[2024-04-12] MEDS: ASPIRIN 81MG CHEWABLE TABLET 81 MG PO (09:15)
[2024-04-12] MEDS: ROPINIROLE 1MG TABLET 2 MG PO ×2 (09:15→20:16)
[2024-04-12] MEDS: DOXYCYCLINE HYCLATE 100 MG in 0.9 % SODIUM CHLORIDE 250 ML 166.667 MG IV ×2 (09:15→20:16)
[2024-04-12] MEDS: SERTRALINE 50MG TABLET 75 MG PO (09:15)
[2024-04-12] MEDS: FAMOTIDINE 20MG/2ML VIAL 20 MG IV (09:15)
[2024-04-12] MEDS: OSELTAMIVIR PHOSPHATE 6MG/ML ORAL SUSP 60ML 30 MG PO ×2 (09:20→20:16)
--- NOTE | 2024-04-12 09:29 | EXP.PULM.PN ---
Subjective *Date: 04/12/24 *Time: 10:48 Interval history: Patient denies any new respiratory complaints. Awake and alert today Pulmonology Exam Inpatient Vital signs and Labs for Last 24 Hours: Temp Pulse Resp BP Pulse Ox O2 Del Method O2 Flow Rate 97.8 F 102 H 29 H 115/60 96 Vapotherm 35 04/12/24 08:00 04/12/24 09:00 04/12/24 09:00 04/12/24 09:00 04/12/24 09:00 04/12/24 08:00 04/12/24 07:00 FiO2 70 04/12/24 07:00 Laboratory Results - last 24 hr 04/11/24 06:11: Sodium 141, Potassium 3.9, Chloride 101, Carbon Dioxide 28, Anion Gap 15.9 H, BUN 26 H D, Creatinine 0.80, Estimated Creat Clear 39, Estimated GFR 68, Est GFR ( Amer) 82, Glucose 161 H D, Calcium 8.3 L, Magnesium 1.5 L, Total Bilirubin 0.3, AST 170 H D, ALT 88 H D, Alkaline Phosphatase 158 H, Total Protein 6.3, Albumin 3.7, Globulin 2.6, Albumin/Globulin Ratio 1.4 04/11/24 07:48: Troponin I 0.18 H 04/11/24 10:25: Lactate 2.4 H 04/11/24 11:04: POC Glucose 153 H 04/11/24 16:48: POC Glucose 132 H 04/12/24 03:00: Specimen Source Left radial, O2 % Vapo 40l 100%, ABG pH 7.39, ABG pCO2 46.1 H, ABG pO2 154.2 H, ABG HCO3 27.0 H, ABG Total CO2 28.4 H, ABG O2 Saturation 99, ABG Base Excess 2.0, Jesus Test Acceptable 04/12/24 05:11: WBC 13.3 H, RBC 3.57 L, Hgb 9.7 L D, Hct 30.4 L, MCV 85.2, MCH 26.1 L, MCHC 30.6 L, RDW 15.8, Plt Count 151, MPV 11.2 H, Neut % (Auto) 90.5 H, Lymph % (Auto) 6.1 L, [place] % (Auto) 2.7, Eos % (Auto) 0.1, Baso % (Auto) 0.2, Neut # (Auto) 12.1 H, Lymph # (Auto) 0.8, [place] # (Auto) 0.4, Eos # (Auto) 0.0, Baso # (Auto) 0.0, Total Counted 100, Neutrophils % (Manual) 92 H, Lymphocytes % (Manual) 7 L, Monocytes % (Manual) 1 L, Platelet Estimate Normal, RBC Morphology Normal, Sodium 139, Potassium 4.3, Chloride 100, Carbon Dioxide 25, Anion Gap 18.3 H, BUN 41 H D, Creatinine 1.00 D, Estimated Creat Clear 38, Estimated GFR 52 L, Est GFR ( Amer) 63 D, Glucose 102 H D, Calcium 7.9 L, Magnesium 1.6, Total Bilirubin 0.6, AST 96 H D, ALT 65 D, Alkaline Phosphatase 121, Total Protein 6.0 L, Albumin 3.6, Globulin 2.4, Albumin/Globulin Ratio 1.5 04/12/24 06:36: POC Glucose 144 H Temp Pulse Resp BP Pulse Ox O2 Del Method O2 Flow Rate 98.6 F 94 H 18 129/59 L 99 Vapotherm 25 04/11/24 07:59 04/11/24 07:59 04/11/24 07:59 04/11/24 07:59 04/11/24 09:41 04/11/24 09:41 04/11/24 09:41 FiO2 80 04/11/24 09:41 Laboratory Results - last 24 hr 04/11/24 01:30: Sodium 139, Potassium 4.5, Chloride 104, Carbon Dioxide 22, Anion Gap 17.5 H, BUN 20 H, Creatinine 0.70, Estimated Creat Clear 47, Estimated GFR 79, Est GFR ( Amer) 96, Glucose 303 H, Calcium 8.5, Total Bilirubin 0.3, AST 83 H, ALT 42, Alkaline Phosphatase 125, Troponin I 0.05 H, NT-Pro-B Natriuret Pep 3280 H, Total Protein 6.1 L, Albumin 3.7, Globulin 2.4, Albumin/Globulin Ratio 1.5, Triglycerides 146, Cholesterol 168, LDL Cholesterol Direct 102.53, VLDL Cholesterol 29, HDL Cholesterol 35 L, Cholesterol/HDL Ratio 4.8 H, Procalcitonin 0.063, Plasma/Serum Alcohol < 10 04/11/24 01:34: VBG pH 7.09 L, VBG pCO2 63.4 H, VBG pO2 70.0 H, VBG HCO3 18.6 L, VBG Total CO2 20.6 L, VBG O2 Saturation 87.4 H, VBG Base Excess -11.3 L, VBG Lactic Acid 5.5 H 04/11/24 01:35: HCV Ab GRACIA w/Rflx PCR Qn Negative, HIV Ag/Ab Combo Qual Negative 04/11/24 01:50: WBC 22.7 H*, RBC 4.51, Hgb 11.6 L, Hct 41.9, MCV 92.9, MCH 25.7 L, MCHC 27.7 L, RDW 15.9, Plt Count 241, MPV 11.1 H, Neut % (Auto) 34.5 L, Lymph % (Auto) 55.7 H, [place] % (Auto) 7.9, Eos % (Auto) 0.8, Baso % (Auto) 0.3, Neut # (Auto) 7.8, Lymph # (Auto) 12.6 H, [place] # (Auto) 1.8 H, Eos # (Auto) 0.2, Baso # (Auto) 0.1, Total Counted 100, Neutrophils % (Manual) 32 L, Band Neutrophils % 7.0, Lymphocytes % (Manual) 50, Monocytes % (Manual) 11 H, Platelet Estimate Normal, RBC Morphology Normal, PT 10.3, INR 0.93, APTT 27.0 04/11/24 02:26: Urine Color Cassandra, Urine Appearance Slightly cloudy, Urine pH 5.5, Ur Specific [place] 1.025, Urine Protein 1+ A, Urine Glucose (UA) Negative, Urine Ketones Negative, Urine Blood 3+ A, Urine Nitrate Negative, Urine Bilirubin Negative, Urine Urobilinogen 0.2, Ur Leukocyte Esterase 2+ A, Urine RBC Tntc, Urine WBC 50-100, Ur Squamous Epith Cells 10-20, Amorphous Sediment 1+, Urine Bacteria 1+, Urine Opiates Screen Positive H, Urine Methadone Screen Negative, Ur Barbituates Screen Negative, Ur Phencyclidine Scrn Negative, Ur Amphetamines Screen Negative, U Benzodiazepines Scrn Negative, Urine Cocaine Screen Negative, U Marijuana (THC) Screen Negative, Chlamy pneumoniae PCR Not detected, Adenovirus (PCR) Not detected, B. pertussis DNA (PCR) Not detected, Coronavirus OC43 (PCR) Not detected, Coronavirus HKU1 (PCR) Not detected, Coronavirus 229E (PCR) Not detected, SARS-CoV-2 (PCR) Not detected, Coronavirus NL63 (PCR) Not detected, Human Metapneumovir PCR Not detected, Influenza A (H1) PCR Not detected, Influ A (H1N1/09) PCR Detected A, Influenza A (H3) PCR Not detected, Influenza Type A (PCR) Not detected, Influenza Type B (PCR) Not detected, M. pneumoniae (PCR) Not detected, Parainfluenza 1 (PCR) Not detected, Parainfluenza 2 (PCR) Not detected, Parainfluenza 3 (PCR) Not detected, Parainfluenza 4 (PCR) Not detected, RSV (PCR) Not detected, Entero/Rhino (PCR) Not detected 04/11/24 05:39: POC Glucose 190 H 04/11/24 06:00: VBG pH 7.34, VBG pCO2 39.4, VBG pO2 93.9 H, VBG HCO3 20.8 L, VBG Total CO2 22.0 L, VBG O2 Saturation 97.0 H, VBG Base Excess -5.0 L, VBG Lactic Acid 3.3 H 04/11/24 06:11: WBC 12.6 H D, RBC 4.16 L, Hgb 10.8 L, Hct 37.9, MCV 91.1, MCH 26.0 L, MCHC 28.5 L, RDW 15.9, Plt Count 179 D, MPV 10.5 H, Neut % (Auto) 88.6 H, Lymph % (Auto) 3.9 L, [place] % (Auto) 6.8, Eos % (Auto) 0.0 L, Baso % (Auto) 0.1, Neut # (Auto) 11.2 H, Lymph # (Auto) 0.5 L, [place] # (Auto) 0.9, Eos # (Auto) 0.0, Baso # (Auto) 0.0, Sodium 141, Potassium 3.9, Chloride 101, Carbon Dioxide 28, Anion Gap 15.9 H, BUN 26 H D, Creatinine 0.80, Estimated Creat Clear 39, Estimated GFR 68, Est GFR ( Amer) 82, Glucose 161 H D, Calcium 8.3 L, Magnesium 1.5 L, Total Bilirubin 0.3, AST 170 H D, ALT 88 H D, Alkaline Phosphatase 158 H, Total Protein 6.3, Albumin 3.7, Globulin 2.6, Albumin/Globulin Ratio 1.4 04/11/24 07:48: Lactate 3.0 H, Troponin I 0.18 H I & O for Labs for Last 24 Hours: Intake & Output 04/09/24 04/10/24 04/11/24 04/12/24 23:59 23:59 23:59 23:59 Intake Total 610 / 610 220 / 220 Output Total 3325 / 3325 850 / 850 Balance -2715 / -2715 -630 / -630 Weight 140 lb 4.482 oz 135 lb 1.6 oz Intake & Output 04/08/24 04/09/24 04/10/24 04/11/24 23:59 23:59 23:59 23:59 Output Total 750 / 750 Balance -750 / -750 Weight 140 lb 4.8 oz Constitutional: Present moderate distress Head: Present normocephalic and atraumatic ENT: Present normal exam, normal oropharynx and mucous membranes moist Neck: Present normal inspection and full ROM Respiratory: Present respiratory distress, rhonchi and diminished air movement; Absent stridor, wheezes or able to speak in complete sentences Cardiac: Present S1/S2, Tachycardia and radial pulses present GI: Present soft and distention; Absent tenderness or guarding Rectal (female): Present deferred (female): Present deferred Skin: Present intact; Absent cyanosis or jaundice Neuro: Present alert and awake; Absent oriented x 3 Extremities: Present normal inspection; Absent clubbing or cyanosis Assessment and Plan *Assessment and plan (1) Acute hypoxic respiratory failure: Status: Acute Category: Medical Code(s): J96.01 - Acute respiratory failure with hypoxia (2) Pneumonia: Status: Acute Qualifiers: Pneumonia type: due to influenza A virus Qualified Code(s): J10.00 - Influenza due to other identified influenza virus with unspecified type of pneumonia Category: Medical Code(s): J18.9 - Pneumonia, unspecified organism (3) Influenza A (H1N1): Status: Acute Category: Medical Code(s): J10.1 - Influenza due to other identified influenza virus with other respiratory manifestations Plan Ms. Osullivan is a 88-year-old history of COPD was brought to the ER from halfway complaining worsening respiratory distress and pulmonary was called for further evaluation and management. Patient opening eyes and responding to painful stimuli. Not responding appropriately verbal commands. Much of the history obtained from chart review. Progressive worsening respiratory distress and worsening lower extremity swelling. CTA on admission, no evidence of pulmonary embolism elevated right hemidiaphragm, bilateral lower lobe consolidative changes right greater than left along with bilateral effusions right greater than left Neutrophilic predominant leukocytosis. Influenza A positive on PCR. ABG upon admission severe hypercarbic respiratory failure, improving with a pH of 7.34 and a pCO2 of 39.4. Receiving ceftriaxone and doxycycline. Interval update: Increasing oxygen commands, currently on 40 L 100%. Saturations improved now at 99%. Will continue to wean as tolerated. Stable leukocytosis. Afebrile. Hemodynamically stable. Cardiology following. Plan:- -Stop methylprednisolone -Continue oseltamavir x 5 days -Continue ceftriaxone and doxycycline pending blood and sputum culture results and nasal MRSA screen -Continue high flow nasal cannula oxygen supplementation to maintain O2 saturation of 90% and above complaint 25 L 60%. -DuoNebs 4 times daily scheduled -Volume optimization as per primary team and cardiology -No need for thoracentesis at this point of time. Will follow. -Incentive spirometry
[2024-04-12] MEDS: PANTOPRAZOLE 40MG VIAL 40 MG IV ×2 (10:19→20:16)
[2024-04-12] MEDS: SODIUM CHLORIDE 0.9% 10ML VIAL 10 ML IV (10:19)
[2024-04-12 11:13] LABS: POC Glucose,Bedside 152 (70-110)
--- NOTE | 2024-04-12 12:37 | P.PN_ITS ---
Subjective Subjective Date: 04/12/24 Time: 09:30 Interval history: No CV events overnight. Pt more docile/agreeable today. She is in SR. Appears euvolemic. Denies CP. ECHO results are pending. Exam Data for Last 24 hours Vital signs and Labs for Last 24 Hours: Temp Pulse Resp BP Pulse Ox O2 Del Method O2 Flow Rate 97.8 F 94 H 21 120/57 L 97 Vapotherm 30 04/12/24 08:00 04/12/24 11:30 04/12/24 11:00 04/12/24 11:00 04/12/24 11:30 04/12/24 11:30 04/12/24 11:30 FiO2 80 04/12/24 11:30 Laboratory Results - last 24 hr 04/11/24 16:48: POC Glucose 132 H 04/12/24 03:00: Specimen Source Left radial, O2 % Vapo 40l 100%, ABG pH 7.39, ABG pCO2 46.1 H, ABG pO2 154.2 H, ABG HCO3 27.0 H, ABG Total CO2 28.4 H, ABG O2 Saturation 99, ABG Base Excess 2.0, Jesus Test Acceptable 04/12/24 05:11: WBC 13.3 H, RBC 3.57 L, Hgb 9.7 L D, Hct 30.4 L, MCV 85.2, MCH 26.1 L, MCHC 30.6 L, RDW 15.8, Plt Count 151, MPV 11.2 H, Neut % (Auto) 90.5 H, Lymph % (Auto) 6.1 L, [place] % (Auto) 2.7, Eos % (Auto) 0.1, Baso % (Auto) 0.2, Neut # (Auto) 12.1 H, Lymph # (Auto) 0.8, [place] # (Auto) 0.4, Eos # (Auto) 0.0, Baso # (Auto) 0.0, Total Counted 100, Neutrophils % (Manual) 92 H, Lymphocytes % (Manual) 7 L, Monocytes % (Manual) 1 L, Platelet Estimate Normal, RBC Morphology Normal, Sodium 139, Potassium 4.3, Chloride 100, Carbon Dioxide 25, Anion Gap 18.3 H, BUN 41 H D, Creatinine 1.00 D, Estimated Creat Clear 38, Estimated GFR 52 L, Est GFR ( Amer) 63 D, Glucose 102 H D, Calcium 7.9 L, Magnesium 1.6, Total Bilirubin 0.6, AST 96 H D, ALT 65 D, Alkaline Phosphatase 121, Total Protein 6.0 L, Albumin 3.6, Globulin 2.4, Albumin/Globulin Ratio 1.5 04/12/24 06:36: POC Glucose 144 H 04/12/24 11:02: POC Glucose 152 H I & O for Last 24 hours: Intake & Output 04/09/24 04/10/24 04/11/24 04/12/24 23:59 23:59 23:59 23:59 Intake Total 610 / 610 470 / 470 Output Total 3325 / 3325 850 / 850 Balance -2715 / -2715 -380 / -380 Weight 140 lb 4.482 oz 135 lb 1.6 oz Constitutional Constitutional: no acute distress and cooperative *Routine HEENT Exam Eye: Present PERRL *Routine Respiratory Exam Respiratory: Present CTA bilaterally; Absent accessory muscle use, wheezes or crackles *Routine Cardiovascular Exam Cardiovascular: Present RRR, Normal S1 and Normal S2; Absent murmur, gallop or rubs *Routine Abdominal Exam Abdominal: Present soft; Absent tenderness *Routine Extremities Exam Extremities: Present pulses intact; Absent cyanosis or edema *Routine Skin Exam Skin: Present intact; Absent erythema or wounds *Routine Neurological Exam Neurological: Present alert Routine Psychiatric Exam Psychiatric: Present cooperative Progress Note: A&P Assessment and plan (1) Acute hypoxic respiratory failure: Status: Acute (2) Pneumonia: Status: Acute (3) Influenza A (H1N1): Status: Acute (4) Acute on chronic heart failure with preserved ejection fraction (HFpEF): Status: Acute Assessment and Plan Assessment and Plan for All Diagnoses:: Acute on Chronic HFpEF - bilat effusions and ProBNP 3k - ECHO in Oct showed nml LV fxn, LVH 1.3, grade 2 DD, mild to mod RV dilation - she has diuresed 2.3L on Bumex 2mg BID. BUN up to 41. Will reduce to 1mg bid - repeat ECHO pending - hold on ARB/SGLT-2 due to sepsis Left Bundle Branch Block - unchanged from baseline Sepsis, Flu-A, PNA, UTI - pt with AMS, on antibiotics - she is DNR/DNI Altered Mental Status - dementia at baseline with acute delirium in setting of sepsis
--- NOTE | 2024-04-12 13:32 | EXP.ACUTE.PN ---
Subjective *Date: 04/12/24 *Time: 18:31 Interval history: Patient has been having episodes of agitation and confusion after receiving Tamiflu. Required increase in Vapotherm overnight to 40 L and 100%. Remains afebrile this morning. Looks fairly comfortable. Having intermittent A-fib with RVR, heart rate improved to the 90s on rounds but not an hour prior had been in the 130s. Patient pleasant but alert only to self. Family at bedside, updated of plan. Medical Exam Vital signs and Labs for Last 24 Hours: Vital Signs Temp Pulse Pulse Resp BP BP Pulse Ox 04/12/24 12:00 89 04/12/24 11:30 94 H 04/12/24 11:30 93 H 04/12/24 11:30 97 04/12/24 11:00 04/12/24 11:00 99 H 21 120/57 L 98 04/12/24 11:00 120/57 L 04/12/24 10:00 129/64 04/12/24 10:00 96 H 19 129/64 97 04/12/24 09:00 04/12/24 09:00 102 H 29 H 115/60 96 04/12/24 08:00 04/12/24 08:00 130 H 20 96/56 L 92 L 04/12/24 08:00 136 H 04/12/24 08:00 97.8 F 118 H 21 96/56 L 92 L 04/12/24 07:01 128 H 21 131/67 100 04/12/24 07:00 111 H 18 131/67 99 04/12/24 06:49 04/12/24 06:28 114 H 04/12/24 06:28 122 H 04/12/24 06:28 98 04/12/24 06:00 94 H 22 102/68 L 96 04/12/24 06:00 122 H 21 102/68 L 91 L 04/12/24 05:18 142 H 04/12/24 05:05 142 H 98/50 L 04/12/24 05:01 115 H 22 105/54 L 91 L 04/12/24 05:00 128 H 17 105/54 L 92 L 04/12/24 05:00 04/12/24 04:55 145 H 17 93/60 L 88 L 04/12/24 04:10 95 H 04/12/24 04:00 96 H 23 125/58 L 88 L 04/12/24 04:00 95 H 90 L 04/12/24 04:00 97.6 F 95 H 20 125/58 L 88 L 04/12/24 03:00 89 18 116/59 L 93 L 04/12/24 03:00 90 18 116/59 L 89 L 04/12/24 02:55 04/12/24 02:00 97 H 20 109/58 L 96 04/12/24 02:00 91 H 16 109/58 L 94 L 04/12/24 01:00 86 17 102/43 L 94 L 04/12/24 01:00 04/12/24 01:00 88 22 102/43 L 95 04/12/24 00:29 89 04/12/24 00:00 95 H 19 120/56 L 93 L 04/12/24 00:00 85 94 L 04/11/24 23:57 98.6 F 91 H 17 111/51 L 04/11/24 23:45 89 04/11/24 23:45 90 04/11/24 23:00 97 H 18 111/51 L 93 L 04/11/24 23:00 86 22 111/51 L 96 04/11/24 22:59 04/11/24 22:00 88 19 97/47 L 94 L 04/11/24 22:00 89 20 97/47 L 93 L 04/11/24 21:15 04/11/24 21:00 95 H 16 86/57 L 97 04/11/24 21:00 86 16 86/57 L 94 L 04/11/24 20:33 88 04/11/24 20:00 89 12 92/47 L 95 04/11/24 20:00 87 94 L 04/11/24 20:00 97.8 F 90 16 108/63 L 92 L 04/11/24 19:18 90 23 108/53 L 93 L 04/11/24 19:14 90 94/53 L 92 L 04/11/24 19:00 90 21 94/53 L 89 L 04/11/24 18:36 04/11/24 18:35 87 04/11/24 18:35 88 04/11/24 18:35 93 L 04/11/24 18:00 89 17 109/55 L 97 04/11/24 18:00 88 18 109/55 L 97 04/11/24 17:00 89 25 H 107/48 L 96 04/11/24 17:00 88 107/48 L 98 04/11/24 16:57 04/11/24 16:00 85 15 96/49 L 96 04/11/24 16:00 86 04/11/24 16:00 98.6 F 04/11/24 16:00 04/11/24 16:00 85 16 96/49 L 95 04/11/24 15:16 88/56 L 04/11/24 15:02 83 15 86/45 L 97 04/11/24 15:00 84 17 81/46 L 96 04/11/24 15:00 04/11/24 14:04 90 16 104/47 L 98 04/11/24 14:00 90 16 88/45 L 97 04/11/24 14:00 88 20 104/47 L 97 O2 Del Method O2 Flow Rate FiO2 04/12/24 12:00 04/12/24 11:30 04/12/24 11:30 04/12/24 11:30 Vapotherm 30 80 04/12/24 11:00 Room Air 04/12/24 11:00 04/12/24 11:00 04/12/24 10:00 04/12/24 10:00 04/12/24 09:00 Room Air 04/12/24 09:00 04/12/24 08:00 Vapotherm 04/12/24 08:00 Vapotherm 04/12/24 08:00 04/12/24 08:00 Vapotherm 04/12/24 07:01 04/12/24 07:00 Vapotherm 35 70 04/12/24 06:49 Vapotherm 35 04/12/24 06:28 04/12/24 06:28 04/12/24 06:28 Vapotherm 35 80 04/12/24 06:00 04/12/24 06:00 Vapotherm 40 04/12/24 05:18 04/12/24 05:05 04/12/24 05:01 04/12/24 05:00 Vapotherm 40 04/12/24 05:00 Vapotherm 40 04/12/24 04:55 04/12/24 04:10 04/12/24 04:00 04/12/24 04:00 Vapotherm 40 90 04/12/24 04:00 Vapotherm 40 04/12/24 03:00 04/12/24 03:00 Vapotherm 25 04/12/24 02:55 Vapotherm 30 04/12/24 02:00 04/12/24 02:00 Nasal Cannula 2 04/12/24 01:00 04/12/24 01:00 Vapotherm 25 04/12/24 01:00 Vapotherm 25 50 04/12/24 00:29 04/12/24 00:00 04/12/24 00:00 Vapotherm 25 50 04/11/24 23:57 04/11/24 23:45 04/11/24 23:45 04/11/24 23:00 04/11/24 23:00 Vapotherm 25 50 04/11/24 22:59 Vapotherm 25 04/11/24 22:00 04/11/24 22:00 Vapotherm 04/11/24 21:15 Vapotherm 25 04/11/24 21:00 04/11/24 21:00 Vapotherm 25 50 04/11/24 20:33 04/11/24 20:00 04/11/24 20:00 Vapotherm 25 50 04/11/24 20:00 Vapotherm 04/11/24 19:18 04/11/24 19:14 Vapotherm 04/11/24 19:00 04/11/24 18:36 Vapotherm 04/11/24 18:35 04/11/24 18:35 04/11/24 18:35 Vapotherm 25 50 04/11/24 18:00 04/11/24 18:00 Vapotherm 04/11/24 17:00 04/11/24 17:00 Vapotherm 04/11/24 16:57 Vapotherm 04/11/24 16:00 04/11/24 16:00 04/11/24 16:00 04/11/24 16:00 Vapotherm 04/11/24 16:00 Vapotherm 04/11/24 15:16 04/11/24 15:02 04/11/24 15:00 04/11/24 15:00 Vapotherm 04/11/24 14:04 04/11/24 14:00 04/11/24 14:00 Vapotherm 25 Intake and Output 04/11/24 04/12/24 04/12/24 23:59 07:59 15:59 Intake Total 490 / 610 100 / 470 370 / 470 Output Total 400 / 3325 850 / 850 Balance 90 / -2715 -750 / -380 370 / -380 Intake: Intake, Oral Amount 240 / 360 120 / 120 Intake, Total IV Amount 250 / 250 100 / 350 250 / 350 Ceftriaxone Sodium 2 gm In 0.9 100 / 100 % Sodium Chloride 100 ml @ 200 mls/hr IV Q24H [facility] Rx#:[id number] Doxycycline Hyclate 100 mg In 0 250 / 250 250 / 250 .9 % Sodium Chloride 250 ml @ 166.667 mls/hr IV Q12H [facility] Rx#: [id number] Output: Output, Urine Amount 400 / 1150 850 / 850 Other: Number of Unmeasured Voids 0 0 Number of Bowel Movements 1 1 Weight 61.28 kg Patient Weight 04/12/24 23:59 Weight 61.28 kg Laboratory Results - last 24 hr 04/11/24 16:48: POC Glucose 132 H 04/12/24 03:00: Specimen Source Left radial, O2 % Vapo 40l 100%, ABG pH 7.39, ABG pCO2 46.1 H, ABG pO2 154.2 H, ABG HCO3 27.0 H, ABG Total CO2 28.4 H, ABG O2 Saturation 99, ABG Base Excess 2.0, Jesus Test Acceptable 04/12/24 05:11: WBC 13.3 H, RBC 3.57 L, Hgb 9.7 L D, Hct 30.4 L, MCV 85.2, MCH 26.1 L, MCHC 30.6 L, RDW 15.8, Plt Count 151, MPV 11.2 H, Neut % (Auto) 90.5 H, Lymph % (Auto) 6.1 L, [place] % (Auto) 2.7, Eos % (Auto) 0.1, Baso % (Auto) 0.2, Neut # (Auto) 12.1 H, Lymph # (Auto) 0.8, [place] # (Auto) 0.4, Eos # (Auto) 0.0, Baso # (Auto) 0.0, Total Counted 100, Neutrophils % (Manual) 92 H, Lymphocytes % (Manual) 7 L, Monocytes % (Manual) 1 L, Platelet Estimate Normal, RBC Morphology Normal, Sodium 139, Potassium 4.3, Chloride 100, Carbon Dioxide 25, Anion Gap 18.3 H, BUN 41 H D, Creatinine 1.00 D, Estimated Creat Clear 38, Estimated GFR 52 L, Est GFR ( Amer) 63 D, Glucose 102 H D, Calcium 7.9 L, Magnesium 1.6, Total Bilirubin 0.6, AST 96 H D, ALT 65 D, Alkaline Phosphatase 121, Total Protein 6.0 L, Albumin 3.6, Globulin 2.4, Albumin/Globulin Ratio 1.5 04/12/24 06:36: POC Glucose 144 H 04/12/24 11:02: POC Glucose 152 H I & O for Labs for Last 24 Hours: Intake & Output 04/09/24 04/10/24 04/11/24 04/12/24 23:59 23:59 23:59 23:59 Intake Total 610 / 610 470 / 470 Output Total 3325 / 3325 850 / 850 Balance -2715 / -2715 -380 / -380 Weight 63.63 kg 61.28 kg Constitutional: Present mild distress, chronically ill appearing and cooperative Head: Present atraumatic and normocephalic ENT: Present normal exam Respiratory: Present accessory muscle use and rhonchi; Absent wheezes or crackles Cardiac: Present Tachycardia Comment:: Irregularly irregular GI: Present soft, tenderness (Mild right upper quadrant) and normal bowel sounds; Absent distention Extremities: Present normal inspection and full ROM Skin: Present intact; Absent erythema Neuro: Present Grossly Intact, alert, awake and moves all extremities Comment:: Oriented to self only, does not know where she is or why Assessment and Plan *Assessment and plan (1) Acute on chronic heart failure with preserved ejection fraction (HFpEF): Status: Acute Category: Medical Code(s): I50.33 - Acute on chronic diastolic (congestive) heart failure (2) Influenza A (H1N1): Status: Acute Category: Medical Code(s): J10.1 - Influenza due to other identified influenza virus with other respiratory manifestations (3) Acute hypoxic respiratory failure: Status: Acute Category: Medical Code(s): J96.01 - Acute respiratory failure with hypoxia (4) Hypercarbia: Status: Acute Category: Medical Code(s): R06.89 - Other abnormalities of breathing (5) UTI (urinary tract infection): Status: Acute Qualifiers: Hematuria presence: without hematuria Urinary tract infection type: acute cystitis Qualified Code(s): N30.00 - Acute cystitis without hematuria Category: Medical Code(s): N39.0 - Urinary tract infection, site not specified (6) Altered mental status, unspecified: Status: Acute Qualifiers: Altered mental status type: stupor Qualified Code(s): R40.1 - Stupor Category: Medical Code(s): R41.82 - Altered mental status, unspecified (7) Dementia: Status: Chronic Qualifiers: Dementia behavioral disturbance: without behavioral disturbance Dementia type: associated with other underlying disease Qualified Code(s): F02.80 - Dementia in other diseases classified elsewhere without behavioral disturbance Category: Medical Code(s): F03.90 - Unspecified dementia, unspecified severity, without behavioral disturbance, psychotic disturbance, mood disturbance, and anxiety Plan Kathy Osullivan is a 88-year-old female who presents from [facility] with shortness of breath, acute metabolic encephalopathy and was admitted for acute hypoxic, hypercapnic respiratory failure secondary to COPD exacerbation, influenza A, multifocal pneumonia, HFpEF exacerbation. Continuing treatment for H1N1 flu, intermittent delirium after Tamiflu. Necessitating ICU level care. Maximal Vapotherm settings on morning rounds. Prognosis guarded, condition serious. Problems addressed as follows: #Acute hypoxic, hypercapnic respiratory failure #Acute metabolic encephalopathy ? Currently requiring Vapotherm 25 L. Will wean as tolerated. ? Secondary to COPD exacerbation, influenza A, multifocal pneumonia, HFpEF exacerbation. See separate problems. ? CTA negative for PE. ? Acute metabolic encephalopathy likely secondary to CO2 narcosis now resolved. #Sepsis #Multifocal pneumonia #UTI #Influenza A #Bibasilar pleural effusions ? Initial WBC 22.7, with tachycardia, tachypnea, hypoxia. UA grossly abnormal. ? CTA chest shows multifocal pneumonia. - White count improved to 13, hemoglobin 9.7, has had a steady drop in hemoglobin during admission. Daughters were concerned about blood in her mouth when she arrived in the hospital. Monitor H&H closely with repeat this afternoon and repeat CBC, CMP, magnesium ordered for the morning. -Kidney function at baseline for patient with BUN 40, creatinine 1. Magnesium 1.6, replacing per protocol. Potassium 4.3. ? Continue ceftriaxone, doxycycline day 2/5. ? Continue Tamiflu day 2/5. Renally dosed at 30 mg p.o. twice daily ? Follow-up sputum, urine, blood cultures, MRSA screen. ? Pulmonology consulted and assisting with care as above. Discussed case this morning, continue conservative management with Tamiflu and antibiotics. Wean Vapotherm as tolerated. Weaned on rounds to 30 L and 70%. Goal sats greater 90%. No plan for thoracentesis at this time. #HFpEF exacerbation ? Initial BNP 3280 with volume overload. ?Continue Bumex 1 mg IV twice daily ? Cardiology consulted, pending further recommendations. ? Follow-up ECHO. #Acute COPD exacerbation ? DuoNebs every 6 hours, Pulmicort twice daily. ? Will continue home prednisone 10 mg daily to avoid withdrawal. #Anxiety/depression: continue home sertraline 75 mg daily. #Restless leg syndrome: continue home ropinirole. Will hold off on gabapentin 100 mg for now to reduce polypharmacy in advanced age. DNR/DNI DVT prophylaxis: Lovenox 40 mg ICU/Critical care attestation This patient is critically ill with 35 minutes devoted solely to this patient managing life/organ supporting interventions that required physician assessment. This includes time spent making adjustments in ventilator settings, IV fluid administration, titration of pressors, adjustments of medications, discussion of patient with consultants and other care providers as well as updating patient and/or family (if patient by virtue of his/her condition is unable to participate in decision making). This does not include time spent performing separately billed procedures. Time is not concurrent with that of other providers.
[2024-04-12] MEDS: SODIUM CHLORIDE 3% 15ML NEB 3 ML IH (13:55)
--- NOTE | 2024-04-12 15:15 | PC.NURSE ---
Two bowel movements noted during shift. VS stable and patient remained on vapotherm 30L 60% with oxygen saturations 90-93%. Lung sounds diminished. Patient turned q2, heels elevated. Patient pleasantly confused, alert to self. [place] catheter in place.
[2024-04-12 15:30] LABS: Occult Blood,Stool Positive (Negative)
[2024-04-12] MEDS: BUMETANIDE 1MG/4ML VIAL 1 MG IV (16:39)
[2024-04-12 16:55] LABS: POC Glucose,Bedside 114 (70-110)
[2024-04-12 18:17] LABS: Hematocrit 33.5 % (37.0-47.0); Hemoglobin 10.3 g/dL (12.2-16.2)
[2024-04-12 21:27] LABS: POC Glucose,Bedside 114 (70-110)
[2024-04-13] VITALS (32 sets, daily range): BP systolic 105–142; BP diastolic 45–78; PULSE 74–103; RESP 14–24; TEMP 36.6–37.1; O2SAT 82–99; BMI 24.7
[2024-04-13] MEDS: IPRATROPIUM/ALBUTEROL 3 ML NEB IH ×4 (01:02→18:03)
[2024-04-13] MEDS: CEFTRIAXONE SODIUM 2 GM in 0.9 % SODIUM CHLORIDE 100 ML IV (03:48)
[2024-04-13 06:02] LABS: Alanine Aminotransferase 46 U/L (12-78); Albumin Level 3.6 g/dl (3.5-5.0); Albumin/Globulin Ratio 1.4 (1.1-1.8); Alkaline Phosphatase 125 U/L (38-126); Anion Gap 11.5 mEq/L (5-15); Aspartate Amino Transferase 63 U/L (14-36); Bilirubin,Total 0.4 mg/dl (0.2-1.3); Blood Urea Nitrogen 43 mg/dl (7-17); Calcium 8.4 mg/dl (8.4-10.2); Carbon Dioxide 33 mmol/L (22.0-30.0); Chloride 101 mmol/L (98-107); Creatinine Clearance Estimated 35 mL/min (50-200); Estimated Glomerular Filt Rate 52 ml/min (>60); GFR (African American) 63 ML/MIN (>60); Globulin 2.5 g/dL (1.3-3.2); Glucose 100 mg/dl (74-100); Magnesium 1.6 mg/dl (1.6-2.3); Potassium 3.5 mmoL/L (3.5-5.1); Sodium 142 mmol/L (136-145); Total Protein,Serum 6.1 g/dl (6.3-8.2)
[2024-04-13 06:04] LABS: Basophils % 0.2 % (0.1-2.0); Hematocrit 33.2 % (37.0-47.0); Hemoglobin 9.8 g/dL (12.2-16.2); Lymphocytes # 1.7 K/mm3 (0.7-4.5); Lymphocytes % 13.1 % (10-50); Mean Corpuscular HGB Conc 29.5 g/dL (31.8-35.4); Mean Corpuscular Hemoglobin 25.4 pg (27.0-31.2); Mean Platelet Volume 11.1 fl (7.4-10.4); Monocytes # 0.8 K/mm3 (0.1-1.0); Monocytes % 6.1 % (1.7-9.3); Neutrophils # 10.4 K/mm3 (1.8-7.8); Neutrophils % 80.3 % (37.0-80.0); Platelet Count 178 K/mm3 (142-424); Red Blood Count 3.86 M/mm3 (4.20-5.40); Red Cell Distribution Width 15.8 % (11.5-17.5); White Blood Count 12.9 K/mm3 (4.8-10.8)
[2024-04-13 06:17] LABS: POC Glucose,Bedside 125 (70-110)
[2024-04-13] MEDS: MAGNESIUM SULFATE IN WATER 2 GM/50 ML PIGGYBACK IV ×2 (06:43→08:16)
[2024-04-13] MEDS: ENOXAPARIN 40MG/0.4ML SYRINGE 40 MG SUBCUT (08:18)
[2024-04-13] MEDS: OSELTAMIVIR PHOSPHATE 6MG/ML ORAL SUSP 60ML 30 MG PO ×2 (08:18→20:48)
[2024-04-13] MEDS: SERTRALINE 50MG TABLET 75 MG PO (08:19)
[2024-04-13] MEDS: ROPINIROLE 1MG TABLET 2 MG PO ×2 (08:19→20:48)
[2024-04-13] MEDS: DOXYCYCLINE HYCLATE 100 MG in 0.9 % SODIUM CHLORIDE 250 ML 166.667 MG IV ×2 (08:19→20:48)
[2024-04-13] MEDS: BUMETANIDE 1MG/4ML VIAL 1 MG IV ×2 (08:19→17:21)
[2024-04-13] MEDS: SODIUM CHLORIDE 0.9% 10ML VIAL 10 ML IV (08:20)
[2024-04-13] MEDS: PANTOPRAZOLE 40MG VIAL 40 MG IV ×2 (08:20→20:48)
--- NOTE | 2024-04-13 09:33 | P.PN_ITS ---
Subjective *Date: 04/13/24 *Time: 12:42 Interval history: No acute respiratory events overnight. Denies any new respiratory complaints Pulmonology Exam Inpatient Vital signs and Labs for Last 24 Hours: Temp Pulse Resp BP Pulse Ox O2 Del Method O2 Flow Rate 98.4 F 83 18 131/65 93 L Vapotherm 35 04/13/24 08:00 04/13/24 08:00 04/13/24 08:00 04/13/24 08:00 04/13/24 08:00 04/13/24 07:00 04/13/24 07:00 FiO2 85 04/13/24 06:11 Laboratory Results - last 24 hr 04/12/24 11:02: POC Glucose 152 H 04/12/24 14:50: Stool Occult Blood Positive A 04/12/24 16:45: POC Glucose 114 H 04/12/24 17:58: Hgb 10.3 L, Hct 33.5 L 04/12/24 21:19: POC Glucose 114 H 04/13/24 05:22: WBC 12.9 H, RBC 3.86 L, Hgb 9.8 L, Hct 33.2 L, MCV 86.0, MCH 25.4 L, MCHC 29.5 L, RDW 15.8, Plt Count 178, MPV 11.1 H, Neut % (Auto) 80.3 H, Lymph % (Auto) 13.1, [place] % (Auto) 6.1, Eos % (Auto) 0.0 L, Baso % (Auto) 0.2, Neut # (Auto) 10.4 H, Lymph # (Auto) 1.7, [place] # (Auto) 0.8, Eos # (Auto) 0.0, Baso # (Auto) 0.0, Sodium 142, Potassium 3.5, Chloride 101, Carbon Dioxide 33 H, Anion Gap 11.5, BUN 43 H, Creatinine 1.00, Estimated Creat Clear 35, Estimated GFR 52 L, Est GFR ( Amer) 63, Glucose 100, Calcium 8.4, Magnesium 1.6, Total Bilirubin 0.4, AST 63 H D, ALT 46 D, Alkaline Phosphatase 125, Total Protein 6.1 L, Albumin 3.6, Globulin 2.5, Albumin/Globulin Ratio 1.4 04/13/24 06:10: POC Glucose 125 H Temp Pulse Resp BP Pulse Ox O2 Del Method O2 Flow Rate 98.6 F 94 H 18 129/59 L 99 Vapotherm 25 04/11/24 07:59 04/11/24 07:59 04/11/24 07:59 04/11/24 07:59 04/11/24 09:41 04/11/24 09:41 04/11/24 09:41 FiO2 80 04/11/24 09:41 Laboratory Results - last 24 hr 04/11/24 01:30: Sodium 139, Potassium 4.5, Chloride 104, Carbon Dioxide 22, Anion Gap 17.5 H, BUN 20 H, Creatinine 0.70, Estimated Creat Clear 47, Estimated GFR 79, Est GFR ( Amer) 96, Glucose 303 H, Calcium 8.5, Total Bilirubin 0.3, AST 83 H, ALT 42, Alkaline Phosphatase 125, Troponin I 0.05 H, NT-Pro-B Natriuret Pep 3280 H, Total Protein 6.1 L, Albumin 3.7, Globulin 2.4, Albumin/Globulin Ratio 1.5, Triglycerides 146, Cholesterol 168, LDL Cholesterol Direct 102.53, VLDL Cholesterol 29, HDL Cholesterol 35 L, Cholesterol/HDL Ratio 4.8 H, Procalcitonin 0.063, Plasma/Serum Alcohol < 10 04/11/24 01:34: VBG pH 7.09 L, VBG pCO2 63.4 H, VBG pO2 70.0 H, VBG HCO3 18.6 L, VBG Total CO2 20.6 L, VBG O2 Saturation 87.4 H, VBG Base Excess -11.3 L, VBG Lactic Acid 5.5 H 04/11/24 01:35: HCV Ab GRACIA w/Rflx PCR Qn Negative, HIV Ag/Ab Combo Qual Negative 04/11/24 01:50: WBC 22.7 H*, RBC 4.51, Hgb 11.6 L, Hct 41.9, MCV 92.9, MCH 25.7 L, MCHC 27.7 L, RDW 15.9, Plt Count 241, MPV 11.1 H, Neut % (Auto) 34.5 L, Lymph % (Auto) 55.7 H, [place] % (Auto) 7.9, Eos % (Auto) 0.8, Baso % (Auto) 0.3, Neut # (Auto) 7.8, Lymph # (Auto) 12.6 H, [place] # (Auto) 1.8 H, Eos # (Auto) 0.2, Baso # (Auto) 0.1, Total Counted 100, Neutrophils % (Manual) 32 L, Band Neutrophils % 7.0, Lymphocytes % (Manual) 50, Monocytes % (Manual) 11 H, Platelet Estimate Normal, RBC Morphology Normal, PT 10.3, INR 0.93, APTT 27.0 04/11/24 02:26: Urine Color [place], Urine Appearance Slightly cloudy, Urine pH 5.5, Ur Specific [place] 1.025, Urine Protein 1+ A, Urine Glucose (UA) Negative, Urine Ketones Negative, Urine Blood 3+ A, Urine Nitrate Negative, Urine Bilirubin Negative, Urine Urobilinogen 0.2, Ur Leukocyte Esterase 2+ A, Urine RBC Tntc, Urine WBC 50-100, Ur Squamous Epith Cells 10-20, Amorphous Sediment 1+, Urine Bacteria 1+, Urine Opiates Screen Positive H, Urine Methadone Screen Negative, Ur Barbituates Screen Negative, Ur Phencyclidine Scrn Negative, Ur Amphetamines Screen Negative, U Benzodiazepines Scrn Negative, Urine Cocaine Screen Negative, U Marijuana (THC) Screen Negative, Chlamy pneumoniae PCR Not detected, Adenovirus (PCR) Not detected, B. pertussis DNA (PCR) Not detected, Coronavirus OC43 (PCR) Not detected, Coronavirus HKU1 (PCR) Not detected, Coronavirus 229E (PCR) Not detected, SARS-CoV-2 (PCR) Not detected, Coronavirus NL63 (PCR) Not detected, Human Metapneumovir PCR Not detected, Influenza A (H1) PCR Not detected, Influ A (H1N1/09) PCR Detected A, Influenza A (H3) PCR Not detected, Influenza Type A (PCR) Not detected, Influenza Type B (PCR) Not detected, M. pneumoniae (PCR) Not detected, Parainfluenza 1 (PCR) Not detected, Parainfluenza 2 (PCR) Not detected, Parainfluenza 3 (PCR) Not detected, Parainfluenza 4 (PCR) Not detected, RSV (PCR) Not detected, Entero/Rhino (PCR) Not detected 04/11/24 05:39: POC Glucose 190 H 04/11/24 06:00: VBG pH 7.34, VBG pCO2 39.4, VBG pO2 93.9 H, VBG HCO3 20.8 L, VBG Total CO2 22.0 L, VBG O2 Saturation 97.0 H, VBG Base Excess -5.0 L, VBG Lactic Acid 3.3 H 04/11/24 06:11: WBC 12.6 H D, RBC 4.16 L, Hgb 10.8 L, Hct 37.9, MCV 91.1, MCH 26.0 L, MCHC 28.5 L, RDW 15.9, Plt Count 179 D, MPV 10.5 H, Neut % (Auto) 88.6 H, Lymph % (Auto) 3.9 L, [place] % (Auto) 6.8, Eos % (Auto) 0.0 L, Baso % (Auto) 0.1, Neut # (Auto) 11.2 H, Lymph # (Auto) 0.5 L, [place] # (Auto) 0.9, Eos # (Auto) 0.0, Baso # (Auto) 0.0, Sodium 141, Potassium 3.9, Chloride 101, Carbon Dioxide 28, Anion Gap 15.9 H, BUN 26 H D, Creatinine 0.80, Estimated Creat Clear 39, Estimated GFR 68, Est GFR ( Amer) 82, Glucose 161 H D, Calcium 8.3 L, Magnesium 1.5 L, Total Bilirubin 0.3, AST 170 H D, ALT 88 H D, Alkaline Phosphatase 158 H, Total Protein 6.3, Albumin 3.7, Globulin 2.6, Albumin/Globulin Ratio 1.4 04/11/24 07:48: Lactate 3.0 H, Troponin I 0.18 H I & O for Labs for Last 24 Hours: Intake & Output 04/10/24 04/11/24 04/12/24 04/13/24 23:59 23:59 23:59 23:59 Intake Total 610 / 610 650 / 650 0 / 0 Output Total 3325 / 3325 2875 / 3425 650 / 650 Balance -2715 / -2715 -2225 / -2775 -650 / -650 Weight 140 lb 4.482 oz 135 lb 1.6 oz 125 lb 12.8 oz Intake & Output 04/08/24 04/09/24 04/10/24 04/11/24 23:59 23:59 23:59 23:59 Output Total 750 / 750 Balance -750 / -750 Weight 140 lb 4.8 oz Microbiology Reports for the Last 24 Hours: Microbiology 04/11/24 13:20 Nose - Nasal MRSA Culture - Final No growth. 04/11/24 02:26 Urine,Clean Catch Urine Culture - Final No growth. 04/11/24 15:28 Blood Blood Culture - Preliminary NO GROWTH AFTER 24 HOURS 04/11/24 15:39 Blood Blood Culture - Preliminary NO GROWTH AFTER 24 HOURS Constitutional: Present moderate distress Head: Present normocephalic and atraumatic ENT: Present normal exam, normal oropharynx and mucous membranes moist Neck: Present normal inspection and full ROM Respiratory: Present respiratory distress, rhonchi and diminished air movement; Absent stridor, wheezes or able to speak in complete sentences Cardiac: Present S1/S2, Tachycardia and radial pulses present GI: Present soft and distention; Absent tenderness or guarding Rectal (female): Present deferred (female): Present deferred Skin: Present intact; Absent cyanosis or jaundice Neuro: Present alert and awake; Absent oriented x 3 Extremities: Present normal inspection; Absent clubbing or cyanosis Assessment and Plan *Assessment and plan (1) Acute hypoxic respiratory failure: Status: Acute Category: Medical Code(s): J96.01 - Acute respiratory failure with hypoxia (2) Pneumonia: Status: Acute Qualifiers: Pneumonia type: due to influenza A virus Qualified Code(s): J10.00 - Influenza due to other identified influenza virus with unspecified type of pneumonia Category: Medical Code(s): J18.9 - Pneumonia, unspecified organism (3) Influenza A (H1N1): Status: Acute Category: Medical Code(s): J10.1 - Influenza due to other identified influenza virus with other respiratory manifestations Plan Ms. Osullivan is a 88-year-old history of COPD was brought to the ER from intermediate complaining worsening respiratory distress and pulmonary was called for further evaluation and management. Patient opening eyes and responding to painful stimuli. Not responding appropriately verbal commands. Much of the history obtained from chart review. Progressive worsening respiratory distress and worsening lower extremity swelling. CTA on admission, no evidence of pulmonary embolism elevated right hemidiaphragm, bilateral lower lobe consolidative changes right greater than left along with bilateral effusions right greater than left Neutrophilic predominant leukocytosis. Influenza A positive on PCR. ABG upon admission severe hypercarbic respiratory failure, improving with a pH of 7.34 and a pCO2 of 39.4. Receiving ceftriaxone and doxycycline. Interval update: No acute respiratory vents overnight. Stable leukocytosis. Continue to receive Tamiflu on antibiotics. Chest x-ray continues elevated right hemidiaphragm airspace disease with no significant worsening Plan:- -Initiate chest percussion therapy -Continue oseltamavir x 5 days -Continue ceftriaxone and doxycycline pending blood and sputum culture results and nasal MRSA screen -Continue high flow nasal cannula oxygen supplementation to maintain O2 saturation of 90% and above, wean as tolerated -DuoNebs 4 times daily scheduled -Volume optimization as per primary team and cardiology -No need for thoracentesis at this point of time. Will follow. -Incentive spirometry
[2024-04-13] MEDS: ONDANSETRON 4MG/2ML VIAL 4 MG IV ×2 (09:36→17:21)
[2024-04-13 12:35] LABS: POC Glucose,Bedside 143 (70-110)
--- NOTE | 2024-04-13 12:44 | EXP.CARD.PN ---
Subjective Subjective Date: 04/13/24 Time: 09:30 Interval history: CV stable overnight. ECHO returned showing no change from prior. She is euvolemic, still altered. Exam Data for Last 24 hours Vital signs and Labs for Last 24 Hours: Temp Pulse Resp BP Pulse Ox O2 Del Method O2 Flow Rate 98.4 F 82 22 116/57 L 92 L Vapotherm 35 04/13/24 08:00 04/13/24 12:00 04/13/24 12:00 04/13/24 12:00 04/13/24 12:00 04/13/24 12:00 04/13/24 12:00 FiO2 65 04/13/24 11:52 Laboratory Results - last 24 hr 04/12/24 14:50: Stool Occult Blood Positive A 04/12/24 16:45: POC Glucose 114 H 04/12/24 17:58: Hgb 10.3 L, Hct 33.5 L 04/12/24 21:19: POC Glucose 114 H 04/13/24 05:22: WBC 12.9 H, RBC 3.86 L, Hgb 9.8 L, Hct 33.2 L, MCV 86.0, MCH 25.4 L, MCHC 29.5 L, RDW 15.8, Plt Count 178, MPV 11.1 H, Neut % (Auto) 80.3 H, Lymph % (Auto) 13.1, [place] % (Auto) 6.1, Eos % (Auto) 0.0 L, Baso % (Auto) 0.2, Neut # (Auto) 10.4 H, Lymph # (Auto) 1.7, [place] # (Auto) 0.8, Eos # (Auto) 0.0, Baso # (Auto) 0.0, Sodium 142, Potassium 3.5, Chloride 101, Carbon Dioxide 33 H, Anion Gap 11.5, BUN 43 H, Creatinine 1.00, Estimated Creat Clear 35, Estimated GFR 52 L, Est GFR ( Amer) 63, Glucose 100, Calcium 8.4, Magnesium 1.6, Total Bilirubin 0.4, AST 63 H D, ALT 46 D, Alkaline Phosphatase 125, Total Protein 6.1 L, Albumin 3.6, Globulin 2.5, Albumin/Globulin Ratio 1.4 04/13/24 06:10: POC Glucose 125 H 04/13/24 12:03: POC Glucose 143 H I & O for Last 24 hours: Intake & Output 04/10/24 04/11/24 04/12/24 04/13/24 23:59 23:59 23:59 23:59 Intake Total 610 / 610 650 / 650 0 / 0 Output Total 3325 / 3325 2875 / 3425 650 / 650 Balance -2715 / -2715 -2225 / -2775 -650 / -650 Weight 140 lb 4.482 oz 135 lb 1.6 oz 125 lb 12.8 oz Microbiology Reports for the Last 24 Hours: Microbiology 04/11/24 13:20 Nose - Nasal MRSA Culture - Final No growth. 04/11/24 02:26 Urine,Clean Catch Urine Culture - Final No growth. 04/11/24 15:28 Blood Blood Culture - Preliminary NO GROWTH AFTER 24 HOURS 04/11/24 15:39 Blood Blood Culture - Preliminary NO GROWTH AFTER 24 HOURS Constitutional Constitutional: no acute distress and cooperative *Routine HEENT Exam Eye: Present PERRL *Routine Respiratory Exam Respiratory: Present CTA bilaterally; Absent accessory muscle use, wheezes or crackles *Routine Cardiovascular Exam Cardiovascular: Present RRR, Normal S1 and Normal S2; Absent murmur, gallop or rubs *Routine Abdominal Exam Abdominal: Present soft; Absent tenderness *Routine Extremities Exam Extremities: Present pulses intact; Absent cyanosis or edema *Routine Skin Exam Skin: Present intact; Absent erythema or wounds *Routine Neurological Exam Neurological: Present alert Routine Psychiatric Exam Psychiatric: Present cooperative Progress Note: A&P Assessment and plan (1) Acute hypoxic respiratory failure: Status: Acute (2) Pneumonia: Status: Acute (3) Influenza A (H1N1): Status: Acute (4) Acute on chronic heart failure with preserved ejection fraction (HFpEF): Status: Acute Assessment and Plan Assessment and Plan for All Diagnoses:: Acute on Chronic HFpEF - bilat effusions and ProBNP 3k - ECHO in Oct showed nml LV fxn, LVH 1.3, grade 2 DD, mild to mod RV dilation - she has diuresed 2.3L on Bumex 2mg BID. BUN up to 41. Will reduce to 1mg bid - repeat ECHO shows essentially no change from prior - pt appears euvolemic with stable labs/vitals - hold on ARB/SGLT-2 due to sepsis but consider as an outpatient Left Bundle Branch Block - unchanged from baseline Sepsis, Flu-A, PNA, UTI - pt with AMS, on antibiotics and supportive care - she is DNR/DNI Altered Mental Status - dementia at baseline with acute delirium in setting of sepsis *CV stable. No further interventions or med changes anticipated at this time. Please advise if further concerns this admission otherwise she can f/u with our office in 2 weeks. She needs to check daily vitals and weights when she gets home or to SNF. Call our office with >5lb weight gain.
[2024-04-13 17:48] LABS: POC Glucose,Bedside 122 (70-110)
--- NOTE | 2024-04-13 19:31 | P.PN_ITS ---
Subjective *Date: 04/13/24 *Time: 23:22 Interval history: Patient pleasantly confused this morning. Appears somewhat more comfortable but still requiring significant supplemental oxygen with Vapotherm. Currently on 35 L and 65%. Afebrile overnight. -5 L since admission. Daughter at bedside. Medical Exam Vital signs and Labs for Last 24 Hours: Vital Signs Temp Pulse Pulse Resp BP BP Pulse Ox 04/13/24 19:00 118/60 04/13/24 19:00 94 H 24 118/60 94 L 04/13/24 18:44 04/13/24 18:03 85 04/13/24 18:03 89 04/13/24 18:03 93 L 04/13/24 18:00 87 18 126/67 92 L 04/13/24 17:00 81 15 127/60 93 L 04/13/24 17:00 04/13/24 16:22 79 92 L 04/13/24 16:00 81 21 131/59 L 82 L 04/13/24 16:00 80 04/13/24 15:00 82 19 119/58 L 90 L 04/13/24 15:00 04/13/24 14:00 82 17 111/50 L 91 L 04/13/24 13:00 74 18 121/58 L 93 L 04/13/24 13:00 04/13/24 12:00 74 91 L 04/13/24 12:00 82 22 116/57 L 92 L 04/13/24 12:00 82 04/13/24 11:52 83 04/13/24 11:52 83 04/13/24 11:52 94 L 04/13/24 11:00 80 19 127/66 92 L 04/13/24 11:00 04/13/24 10:00 82 20 128/67 95 04/13/24 09:00 81 18 126/67 90 L 04/13/24 09:00 04/13/24 08:00 80 04/13/24 08:00 98.4 F 83 18 131/65 93 L 04/13/24 07:55 84 91 L 04/13/24 07:00 85 20 95 04/13/24 07:00 83 140/65 04/13/24 07:00 83 20 140/65 95 04/13/24 06:56 04/13/24 06:11 80 04/13/24 06:11 82 04/13/24 06:11 93 L 04/13/24 06:00 82 20 129/68 94 L 04/13/24 06:00 89 19 92 L 04/13/24 06:00 129/68 04/13/24 05:00 04/13/24 05:00 85 20 95 04/13/24 05:00 77 19 119/60 97 04/13/24 05:00 77 19 119/60 97 04/13/24 04:00 81 93 L 04/13/24 04:00 80 04/13/24 04:00 81 18 95 04/13/24 04:00 98.5 F 85 22 123/50 L 93 L 04/13/24 04:00 98.5 F 85 22 123/50 L 93 L 04/13/24 03:00 04/13/24 03:00 81 19 99 04/13/24 03:00 86 16 125/64 98 04/13/24 03:00 86 17 125/64 98 04/13/24 02:00 89 18 99 04/13/24 02:00 88 16 141/69 H 98 04/13/24 02:00 88 17 141/69 H 98 04/13/24 01:05 04/13/24 01:04 92 H 04/13/24 01:02 90 04/13/24 01:00 04/13/24 01:00 87 19 95 04/13/24 01:00 87 16 123/63 96 04/13/24 01:00 87 17 123/63 96 04/13/24 00:01 94 H 16 88 L 04/13/24 00:01 142/78 H 04/13/24 00:00 90 04/13/24 00:00 95 H 95 04/13/24 00:00 103 H 14 142/78 H 87 L 04/13/24 00:00 98.7 F 86 19 142/78 H 82 L 04/12/24 23:01 134/72 04/12/24 23:01 86 22 134/72 94 L 04/12/24 23:00 04/12/24 23:00 86 20 134/72 95 04/12/24 22:00 82 19 93 L 04/12/24 22:00 84 17 145/64 H 94 L 04/12/24 22:00 84 16 145/64 H 94 L 04/12/24 21:00 92 H 18 94 L 04/12/24 21:00 138/71 04/12/24 21:00 04/12/24 21:00 92 H 18 119/56 L 94 L 04/12/24 20:00 90 04/12/24 20:00 87 17 92 L 04/12/24 20:00 119/56 L 04/12/24 20:00 87 93 L 04/12/24 19:48 97.7 F 75 16 91/56 L 91 L O2 Del Method O2 Flow Rate FiO2 04/13/24 19:00 04/13/24 19:00 04/13/24 18:44 Vapotherm 04/13/24 18:03 04/13/24 18:03 04/13/24 18:03 Vapotherm 35 65 04/13/24 18:00 Vapotherm 04/13/24 17:00 04/13/24 17:00 Vapotherm 04/13/24 16:22 Vapotherm 35 65 04/13/24 16:00 Vapotherm 35 04/13/24 16:00 04/13/24 15:00 Vapotherm 35 04/13/24 15:00 Vapotherm 04/13/24 14:00 Vapotherm 35 04/13/24 13:00 Vapotherm 35 04/13/24 13:00 Vapotherm 35 04/13/24 12:00 Vapotherm 35 65 04/13/24 12:00 Vapotherm 35 04/13/24 12:00 04/13/24 11:52 04/13/24 11:52 04/13/24 11:52 Vapotherm 35 65 04/13/24 11:00 Vapotherm 35 04/13/24 11:00 Vapotherm 04/13/24 10:00 Vapotherm 35 04/13/24 09:00 Vapotherm 35 04/13/24 09:00 Vapotherm 35 04/13/24 08:00 04/13/24 08:00 04/13/24 07:55 Vapotherm 35 80 04/13/24 07:00 04/13/24 07:00 04/13/24 07:00 Vapotherm 35 04/13/24 06:56 Vapotherm 35 04/13/24 06:11 04/13/24 06:11 04/13/24 06:11 Vapotherm 30 85 04/13/24 06:00 Vapotherm 35 04/13/24 06:00 04/13/24 06:00 04/13/24 05:00 Vapotherm 35 04/13/24 05:00 04/13/24 05:00 Vapotherm 35 04/13/24 05:00 Vapotherm 35 04/13/24 04:00 Vapotherm 35 85 04/13/24 04:00 04/13/24 04:00 04/13/24 04:00 Vapotherm 35 04/13/24 04:00 Vapotherm 35 04/13/24 03:00 Vapotherm 35 04/13/24 03:00 04/13/24 03:00 Vapotherm 35 04/13/24 03:00 Vapotherm 35 04/13/24 02:00 04/13/24 02:00 Vapotherm 35 04/13/24 02:00 Vapotherm 35 04/13/24 01:05 Vapotherm 35 85 04/13/24 01:04 04/13/24 01:02 04/13/24 01:00 Vapotherm 35 04/13/24 01:00 04/13/24 01:00 Vapotherm 35 04/13/24 01:00 Vapotherm 35 04/13/24 00:01 04/13/24 00:01 04/13/24 00:00 04/13/24 00:00 Vapotherm 35 75 04/13/24 00:00 04/13/24 00:00 Vapotherm 35 04/12/24 23:01 04/12/24 23:01 04/12/24 23:00 Vapotherm 35 04/12/24 23:00 Vapotherm 35 04/12/24 22:00 04/12/24 22:00 Vapotherm 35 04/12/24 22:00 Vapotherm 04/12/24 21:00 04/12/24 21:00 04/12/24 21:00 Vapotherm 35 04/12/24 21:00 Vapotherm 04/12/24 20:00 04/12/24 20:00 04/12/24 20:00 04/12/24 20:00 Vapotherm 35 75 04/12/24 19:48 Vapotherm Intake and Output 04/13/24 04/13/24 04/13/24 07:59 15:59 23:59 Intake Total 0 / 0 Output Total 650 / 1800 850 / 1800 300 / 1800 Balance -650 / -1800 -850 / -1800 -300 / -1800 Intake: Intake, Oral Amount 0 / 0 Output: Output, Urine Amount 650 / 1800 850 / 1800 300 / 1800 Other: Number of Unmeasured Voids 0 0 Weight 57.062 kg Patient Weight 04/13/24 23:59 Weight 57.062 kg Laboratory Results - last 24 hr 04/12/24 21:19: POC Glucose 114 H 04/13/24 05:22: WBC 12.9 H, RBC 3.86 L, Hgb 9.8 L, Hct 33.2 L, MCV 86.0, MCH 25.4 L, MCHC 29.5 L, RDW 15.8, Plt Count 178, MPV 11.1 H, Neut % (Auto) 80.3 H, Lymph % (Auto) 13.1, [place] % (Auto) 6.1, Eos % (Auto) 0.0 L, Baso % (Auto) 0.2, Neut # (Auto) 10.4 H, Lymph # (Auto) 1.7, [place] # (Auto) 0.8, Eos # (Auto) 0.0, Baso # (Auto) 0.0, Sodium 142, Potassium 3.5, Chloride 101, Carbon Dioxide 33 H, Anion Gap 11.5, BUN 43 H, Creatinine 1.00, Estimated Creat Clear 35, Estimated GFR 52 L, Est GFR ( Amer) 63, Glucose 100, Calcium 8.4, Magnesium 1.6, Total Bilirubin 0.4, AST 63 H D, ALT 46 D, Alkaline Phosphatase 125, Total Protein 6.1 L, Albumin 3.6, Globulin 2.5, Albumin/Globulin Ratio 1.4 04/13/24 06:10: POC Glucose 125 H 04/13/24 12:03: POC Glucose 143 H 04/13/24 17:13: POC Glucose 122 H I & O for Labs for Last 24 Hours: Intake & Output 04/10/24 04/11/24 04/12/24 04/13/24 23:59 23:59 23:59 23:59 Intake Total 610 / 610 650 / 650 0 / 0 Output Total 3325 / 3325 2875 / 3425 1800 / 1800 Balance -2715 / -2715 -2225 / -2775 -1800 / -1800 Weight 63.63 kg 61.28 kg 57.062 kg Microbiology Reports for the Last 24 Hours: Microbiology 04/11/24 15:39 Blood Blood Culture - Preliminary NO GROWTH AFTER 48 HOURS 04/11/24 15:28 Blood Blood Culture - Preliminary NO GROWTH AFTER 48 HOURS 04/11/24 13:20 Nose - Nasal MRSA Culture - Final No growth. 04/11/24 02:26 Urine,Clean Catch Urine Culture - Final No growth. Constitutional: Present no acute distress, chronically ill appearing and cooperative Head: Present atraumatic and normocephalic ENT: Present normal exam Respiratory: Present accessory muscle use and rhonchi; Absent wheezes or crackles Cardiac: Present Tachycardia Comment:: Irregularly irregular GI: Present soft, tenderness (Mild right upper quadrant) and normal bowel sounds; Absent distention Extremities: Present normal inspection and full ROM Skin: Present intact; Absent erythema Neuro: Present Grossly Intact, alert, awake and moves all extremities Comment:: Oriented to self only, does not know where she is or why Assessment and Plan *Assessment and plan (1) Acute on chronic heart failure with preserved ejection fraction (HFpEF): Status: Acute Category: Medical Code(s): I50.33 - Acute on chronic diastolic (congestive) heart failure (2) Influenza A (H1N1): Status: Acute Category: Medical Code(s): J10.1 - Influenza due to other identified influenza virus with other respiratory manifestations (3) Acute hypoxic respiratory failure: Status: Acute Category: Medical Code(s): J96.01 - Acute respiratory failure with hypoxia (4) Hypercarbia: Status: Acute Category: Medical Code(s): R06.89 - Other abnormalities of breathing (5) UTI (urinary tract infection): Status: Acute Qualifiers: Hematuria presence: without hematuria Urinary tract infection type: acute cystitis Qualified Code(s): N30.00 - Acute cystitis without hematuria Category: Medical Code(s): N39.0 - Urinary tract infection, site not specified (6) Altered mental status, unspecified: Status: Acute Qualifiers: Altered mental status type: stupor Qualified Code(s): R40.1 - Stupor Category: Medical Code(s): R41.82 - Altered mental status, unspecified (7) Dementia: Status: Chronic Qualifiers: Dementia behavioral disturbance: without behavioral disturbance Dementia type: associated with other underlying disease Qualified Code(s): F02.80 - Dementia in other diseases classified elsewhere without behavioral disturbance Category: Medical Code(s): F03.90 - Unspecified dementia, unspecified severity, without behavioral disturbance, psychotic disturbance, mood disturbance, and anxiety Plan Kathy Osullivan is a 88-year-old female who presents from [facility] with shortness of breath, acute metabolic encephalopathy and was admitted for acute hypoxic, hypercapnic respiratory failure secondary to COPD exacerbation, influenza A, multifocal pneumonia, HFpEF exacerbation. Continuing treatment for H1N1 flu, intermittent delirium after Tamiflu. Necessitating ICU level care. Weaning Vapotherm. Currently 35 L, 65%. Tolerating a slow wean. Prognosis guarded, condition serious. Problems addressed as follows: #Acute hypoxic, hypercapnic respiratory failure #Acute metabolic encephalopathy ? Currently requiring Vapotherm 35L, 65%. Will wean as tolerated. goal sats >90% ? Secondary to COPD exacerbation, influenza A, multifocal pneumonia, HFpEF exacerbation. See separate problems. ? CTA negative for PE. #Sepsis #Multifocal pneumonia #UTI #Influenza A #Bibasilar pleural effusions ? Initial WBC 22.7, with tachycardia, tachypnea, hypoxia. UA grossly abnormal. ? CTA chest shows multifocal pneumonia. -White count remains elevated at 12.9. Hemoglobin 9.8. Hemoglobin stable over the past 48 hours. No active signs of bleeding. Repeat CBC, CMP, magnesium ordered for the morning. - Kidney function at baseline for patient with BUN 43, creatinine 1. Magnesium 1.6, potassium 3.5 replacing per protocol ? Continue ceftriaxone, doxycycline day 3/5. ? Continue Tamiflu day 3/5. Renally dosed at 30 mg p.o. twice daily ? Follow-up sputum, urine, blood cultures, MRSA screen. ? Pulmonology consulted and assisting with care as above. Discussed case this morning, continue conservative management with Tamiflu and antibiotics. Wean Vapotherm as tolerated. #HFpEF exacerbation ? Initial BNP 3280 with volume overload. ?Continue Bumex 1 mg IV twice daily; -5 L since admission. ? Discussed case with cardiology, echo with stable LV function. Grade 2 diastolic dysfunction. No plan for intervention at this time. #Acute COPD exacerbation ? DuoNebs every 6 hours, Pulmicort twice daily. ? Will continue home prednisone 10 mg daily to avoid withdrawal. #Anxiety/depression: continue home sertraline 75 mg daily. #Restless leg syndrome: continue home ropinirole. Will hold off on gabapentin 100 mg for now to reduce polypharmacy in advanced age. DNR/DNI DVT prophylaxis: Lovenox 40 mg
--- NOTE | 2024-04-13 20:59 | ECG_ITS ---
APPROVED REPORT Exam: Resting ECG HR:106 bpm ECG Measurements Heart Rate 106 AXES QRSd 154 QRS -26 QT 385 T 153 QTc 447 Conclusion ATRIAL FIBRILLATION WITH RAPID VENTRICULAR RESPONSE LEFT BUNDLE BRANCH BLOCK [120+ ms QRS DURATION, 80+ ms Q/S IN V1/V2, 85+ ms R IN I/aVL/V5/V6] ABNORMAL ECG UNCONFIRMED REPORT Electronically signed by : Robin Carvajal MD 04/16/2024 21:01:33
--- NOTE | 2024-04-13 21:00 | PC.NURSE ---
After bathing pt, pt went into afib rvr with rate in 140s. Sustained for about 2-3 min. EKG obtained, at the time of ekg rate was down to 90s. EKG read afib rvr. Provider notified, no new orders. Pt heart rate continues to be in low 100s-90s.
[2024-04-14] VITALS (29 sets, daily range): BP systolic 86–132; BP diastolic 44–71; PULSE 80–110; RESP 13–22; TEMP 36.6–36.8; O2SAT 86–98; BMI 24.1
[2024-04-14] MEDS: IPRATROPIUM/ALBUTEROL 3 ML NEB IH ×3 (00:35→17:55)
[2024-04-14] MEDS: CEFTRIAXONE SODIUM 2 GM in 0.9 % SODIUM CHLORIDE 100 ML IV (01:53)
[2024-04-14 06:01] LABS: Basophils % 0.2 % (0.1-2.0); Hematocrit 36.1 % (37.0-47.0); Hemoglobin 10.5 g/dL (12.2-16.2); Lymphocytes # 1.9 K/mm3 (0.7-4.5); Lymphocytes % 16.3 % (10-50); Mean Corpuscular HGB Conc 29.1 g/dL (31.8-35.4); Mean Corpuscular Hemoglobin 25.3 pg (27.0-31.2); Mean Platelet Volume 11.3 fl (7.4-10.4); Monocytes # 0.7 K/mm3 (0.1-1.0); Monocytes % 5.9 % (1.7-9.3); Neutrophils % 77.2 % (37.0-80.0); Platelet Count 221 K/mm3 (142-424); Red Blood Count 4.15 M/mm3 (4.20-5.40); Red Cell Distribution Width 15.6 % (11.5-17.5); White Blood Count 11.6 K/mm3 (4.8-10.8)
[2024-04-14 06:36] LABS: POC Glucose,Bedside 103 (70-110)
[2024-04-14 06:36] LABS: POC Glucose,Bedside 103 (70-110)
[2024-04-14 06:41] LABS: Alanine Aminotransferase 35 U/L (12-78); Albumin Level 3.6 g/dl (3.5-5.0); Albumin/Globulin Ratio 1.3 (1.1-1.8); Alkaline Phosphatase 119 U/L (38-126); Anion Gap 15.2 mEq/L (5-15); Aspartate Amino Transferase 57 U/L (14-36); Bilirubin,Total 0.5 mg/dl (0.2-1.3); Blood Urea Nitrogen 41 mg/dl (7-17); Calcium 8.4 mg/dl (8.4-10.2); Carbon Dioxide 32 mmol/L (22.0-30.0); Chloride 101 mmol/L (98-107); Creatinine Clearance Estimated 34 mL/min (50-200); Estimated Glomerular Filt Rate 52 ml/min (>60); GFR (African American) 63 ML/MIN (>60); Globulin 2.7 g/dL (1.3-3.2); Glucose 98 mg/dl (74-100); Magnesium 2.2 mg/dl (1.6-2.3); Potassium 3.2 mmoL/L (3.5-5.1); Sodium 145 mmol/L (136-145); Total Protein,Serum 6.3 g/dl (6.3-8.2)
[2024-04-14] MEDS: ENOXAPARIN 40MG/0.4ML SYRINGE 40 MG SUBCUT (07:44)
[2024-04-14] MEDS: DOXYCYCLINE HYCLATE 100 MG in 0.9 % SODIUM CHLORIDE 250 ML 166.667 MG IV ×2 (07:46→19:58)
[2024-04-14] MEDS: ROPINIROLE 1MG TABLET 2 MG PO ×2 (07:46→20:01)
[2024-04-14] MEDS: PANTOPRAZOLE 40MG VIAL 40 MG IV ×2 (07:46→19:59)
[2024-04-14] MEDS: SERTRALINE 50MG TABLET 75 MG PO (07:46)
[2024-04-14] MEDS: BUMETANIDE 1MG/4ML VIAL 1 MG IV ×2 (07:46→16:51)
[2024-04-14] MEDS: SODIUM CHLORIDE 0.9% 10ML VIAL 10 ML IV (07:46)
[2024-04-14] MEDS: OSELTAMIVIR PHOSPHATE 6MG/ML ORAL SUSP 60ML 30 MG PO ×2 (07:49→20:05)
--- NOTE | 2024-04-14 08:04 | P.PN_ITS ---
Subjective *Date: 04/14/24 *Time: 08:04 Medical Exam Vital signs and Labs for Last 24 Hours: Vital Signs Temp Pulse Pulse Resp BP Pulse Ox O2 Del Method 04/14/24 07:00 86 22 106/53 L 94 L Vapotherm 04/14/24 06:35 Vapotherm 04/14/24 06:34 89 04/14/24 06:34 88 04/14/24 06:34 93 L Vapotherm 04/14/24 06:00 91 H 22 92/44 L 92 L Vapotherm 04/14/24 06:00 92/44 L 04/14/24 05:00 Vapotherm 04/14/24 05:00 94 H 20 93/46 L 92 L Vapotherm 04/14/24 04:00 90 04/14/24 04:00 97.8 F 93 H 18 104/54 L 94 L Vapotherm 04/14/24 04:00 89 94 L Vapotherm 04/14/24 03:00 Vapotherm 04/14/24 03:00 91 H 17 94 L 04/14/24 03:00 103/53 L 04/14/24 02:00 94 H 19 110/49 L 92 L Vapotherm 04/14/24 01:00 92 H 16 97 04/14/24 01:00 106/55 L 04/14/24 01:00 Vapotherm 04/14/24 00:36 90 04/14/24 00:36 93 H 04/14/24 00:36 93 L Vapotherm 04/14/24 00:00 95 H 94 L Vapotherm 04/14/24 00:00 98 H 04/14/24 00:00 97.8 F 89 18 125/70 93 L Vapotherm 04/13/24 23:00 Vapotherm 04/13/24 23:00 95 H 18 132/67 97 Vapotherm 04/13/24 23:00 132/67 04/13/24 22:00 103 H 18 120/63 93 L Vapotherm 04/13/24 22:00 120/63 04/13/24 21:01 98 H 22 105/45 L 93 L Vapotherm 04/13/24 20:50 Vapotherm 04/13/24 20:00 80 04/13/24 20:00 92 H 96 Vapotherm 04/13/24 20:00 97.8 F 88 17 129/62 92 L Vapotherm 04/13/24 19:00 118/60 04/13/24 19:00 94 H 24 118/60 94 L 04/13/24 18:44 Vapotherm 04/13/24 18:03 85 04/13/24 18:03 89 04/13/24 18:03 93 L Vapotherm 04/13/24 18:00 87 18 126/67 92 L Vapotherm 04/13/24 17:00 81 15 127/60 93 L 04/13/24 17:00 Vapotherm 04/13/24 16:22 79 92 L Vapotherm 04/13/24 16:00 81 21 131/59 L 82 L Vapotherm 04/13/24 16:00 80 04/13/24 15:00 82 19 119/58 L 90 L Vapotherm 04/13/24 15:00 Vapotherm 04/13/24 14:00 82 17 111/50 L 91 L Vapotherm 04/13/24 13:00 74 18 121/58 L 93 L Vapotherm 04/13/24 13:00 Vapotherm 04/13/24 12:00 74 91 L Vapotherm 04/13/24 12:00 82 22 116/57 L 92 L Vapotherm 04/13/24 12:00 82 04/13/24 11:52 83 04/13/24 11:52 83 04/13/24 11:52 94 L Vapotherm 04/13/24 11:00 80 19 127/66 92 L Vapotherm 04/13/24 11:00 Vapotherm 04/13/24 10:00 82 20 128/67 95 Vapotherm 04/13/24 09:00 81 18 126/67 90 L Vapotherm 04/13/24 09:00 Vapotherm O2 Flow Rate FiO2 04/14/24 07:00 35 04/14/24 06:35 35 04/14/24 06:34 04/14/24 06:34 04/14/24 06:34 35 65 04/14/24 06:00 35 04/14/24 06:00 04/14/24 05:00 04/14/24 05:00 35 04/14/24 04:00 04/14/24 04:00 35 04/14/24 04:00 35 65 04/14/24 03:00 35 04/14/24 03:00 04/14/24 03:00 04/14/24 02:00 35 04/14/24 01:00 04/14/24 01:00 04/14/24 01:00 35 04/14/24 00:36 04/14/24 00:36 04/14/24 00:36 35 65 04/14/24 00:00 35 65 04/14/24 00:00 04/14/24 00:00 35 04/13/24 23:00 04/13/24 23:00 35 04/13/24 23:00 04/13/24 22:00 35 04/13/24 22:00 04/13/24 21:01 04/13/24 20:50 35 04/13/24 20:00 04/13/24 20:00 35 65 04/13/24 20:00 35 04/13/24 19:00 04/13/24 19:00 04/13/24 18:44 04/13/24 18:03 04/13/24 18:03 04/13/24 18:03 35 65 04/13/24 18:00 04/13/24 17:00 04/13/24 17:00 04/13/24 16:22 35 65 04/13/24 16:00 35 04/13/24 16:00 04/13/24 15:00 35 04/13/24 15:00 04/13/24 14:00 35 04/13/24 13:00 35 04/13/24 13:00 35 04/13/24 12:00 35 65 04/13/24 12:00 35 04/13/24 12:00 04/13/24 11:52 04/13/24 11:52 04/13/24 11:52 35 65 04/13/24 11:00 35 04/13/24 11:00 04/13/24 10:00 35 04/13/24 09:00 35 04/13/24 09:00 35 Intake and Output 04/13/24 04/14/24 04/14/24 23:59 07:59 15:59 Intake Total 250 / 250 0 / 0 Output Total 300 / 1800 250 / 250 Balance -50 / -1550 -250 / -250 Intake: Intake, Oral Amount 0 / 0 Intake, Total IV Amount 250 / 250 Doxycycline Hyclate 100 mg In 0 250 / 250 .9 % Sodium Chloride 250 ml @ 166.667 mls/hr IV Q12H [facility] Rx#: [id number] Output: Output, Urine Amount 300 / 1800 250 / 250 Other: Number of Unmeasured Voids 1 0 Number of Bowel Movements 1 1 Weight 55.747 kg Patient Weight 04/14/24 23:59 Weight 55.747 kg Laboratory Results - last 24 hr 04/13/24 12:03: POC Glucose 143 H 04/13/24 17:13: POC Glucose 122 H 04/13/24 21:45: POC Glucose 103 04/14/24 05:23: WBC 11.6 H, RBC 4.15 L, Hgb 10.5 L, Hct 36.1 L, MCV 87.0, MCH 25.3 L, MCHC 29.1 L, RDW 15.6, Plt Count 221, MPV 11.3 H, Neut % (Auto) 77.2, Lymph % (Auto) 16.3, [place] % (Auto) 5.9, Eos % (Auto) 0.0 L, Baso % (Auto) 0.2, Neut # (Auto) 9.0 H, Lymph # (Auto) 1.9, [place] # (Auto) 0.7, Eos # (Auto) 0.0, Baso # (Auto) 0.0, Sodium 145, Potassium 3.2 L, Chloride 101, Carbon Dioxide 32 H, Anion Gap 15.2 H, BUN 41 H, Creatinine 1.00, Estimated Creat Clear 34, Estimated GFR 52 L, Est GFR ( Amer) 63, Glucose 98, Calcium 8.4, Magnesium 2.2 D, Total Bilirubin 0.5, AST 57 H, ALT 35, Alkaline Phosphatase 119, Total Protein 6.3, Albumin 3.6, Globulin 2.7, Albumin/Globulin Ratio 1.3 04/14/24 05:52: POC Glucose 103 I & O for Labs for Last 24 Hours: Intake & Output 04/11/24 04/12/24 04/13/24 04/14/24 23:59 23:59 23:59 23:59 Intake Total 610 / 610 650 / 650 250 / 250 0 / 0 Output Total 3325 / 3325 2875 / 3425 1800 / 1800 250 / 250 Balance -2715 / -2715 -2225 / -2775 -1550 / -1550 -250 / -250 Weight 63.63 kg 61.28 kg 57.062 kg 55.747 kg Microbiology Reports for the Last 24 Hours: Microbiology 04/11/24 15:39 Blood Blood Culture - Preliminary NO GROWTH AFTER 48 HOURS 04/11/24 15:28 Blood Blood Culture - Preliminary NO GROWTH AFTER 48 HOURS 04/11/24 13:20 Nose - Nasal MRSA Culture - Final No growth. 04/11/24 02:26 Urine,Clean Catch Urine Culture - Final No growth. The patient's infection will respond to the chosen ABx?: Yes Is the patient receiving the right drug, dose, and route?: Yes Could a more targeted ABx be ordered?: No (WBC 11.6K THIS IS DECREASED, AFEBRILE, AND NO GROWTH IN CX. CONT. ABX.)
[2024-04-14] MEDS: ONDANSETRON 4MG/2ML VIAL 4 MG IV ×2 (09:12→17:14)
--- NOTE | 2024-04-14 09:42 | XR_ITS ---
FINAL REPORT CLINICAL HISTORY: Hypoxia COMPARISON: 04/12/2024 FINDINGS: The heart size is normal. The mediastinum is normal. Dense consolidation in the right lower lobe has increased from the prior study. There is also a moderate right pleural effusion which is increased. The left lung is clear. There is no pneumothorax. There is no osseous abnormality. IMPRESSION: Increased right lower lobe consolidation and pleural effusion probably due to worsening pneumonia. Reviewed, Interpreted and Dictated by Samir Vance MD Transcribed by Elizabeth Dash Authenticated and . [facility]
--- NOTE | 2024-04-14 09:42 | EXP.PULM.PN ---
Subjective *Date: 04/14/24 *Time: 10:59 Interval history: No acute respiratory vents overnight. Patient denies any new respiratory complaints. Pulmonology Exam Inpatient Vital signs and Labs for Last 24 Hours: Temp Pulse Resp BP Pulse Ox O2 Del Method O2 Flow Rate 98.2 F 91 H 18 93/52 L 91 L Vapotherm 35 04/14/24 08:04 04/14/24 09:00 04/14/24 09:00 04/14/24 09:00 04/14/24 09:00 04/14/24 09:30 04/14/24 09:30 FiO2 65 04/14/24 08:00 Laboratory Results - last 24 hr 04/13/24 12:03: POC Glucose 143 H 04/13/24 17:13: POC Glucose 122 H 04/13/24 21:45: POC Glucose 103 04/14/24 05:23: WBC 11.6 H, RBC 4.15 L, Hgb 10.5 L, Hct 36.1 L, MCV 87.0, MCH 25.3 L, MCHC 29.1 L, RDW 15.6, Plt Count 221, MPV 11.3 H, Neut % (Auto) 77.2, Lymph % (Auto) 16.3, [place] % (Auto) 5.9, Eos % (Auto) 0.0 L, Baso % (Auto) 0.2, Neut # (Auto) 9.0 H, Lymph # (Auto) 1.9, [place] # (Auto) 0.7, Eos # (Auto) 0.0, Baso # (Auto) 0.0, Sodium 145, Potassium 3.2 L, Chloride 101, Carbon Dioxide 32 H, Anion Gap 15.2 H, BUN 41 H, Creatinine 1.00, Estimated Creat Clear 34, Estimated GFR 52 L, Est GFR ( Amer) 63, Glucose 98, Calcium 8.4, Magnesium 2.2 D, Total Bilirubin 0.5, AST 57 H, ALT 35, Alkaline Phosphatase 119, Total Protein 6.3, Albumin 3.6, Globulin 2.7, Albumin/Globulin Ratio 1.3 04/14/24 05:52: POC Glucose 103 Temp Pulse Resp BP Pulse Ox O2 Del Method O2 Flow Rate 98.6 F 94 H 18 129/59 L 99 Vapotherm 25 04/11/24 07:59 04/11/24 07:59 04/11/24 07:59 04/11/24 07:59 04/11/24 09:41 04/11/24 09:41 04/11/24 09:41 FiO2 80 04/11/24 09:41 Laboratory Results - last 24 hr 04/11/24 01:30: Sodium 139, Potassium 4.5, Chloride 104, Carbon Dioxide 22, Anion Gap 17.5 H, BUN 20 H, Creatinine 0.70, Estimated Creat Clear 47, Estimated GFR 79, Est GFR ( Amer) 96, Glucose 303 H, Calcium 8.5, Total Bilirubin 0.3, AST 83 H, ALT 42, Alkaline Phosphatase 125, Troponin I 0.05 H, NT-Pro-B Natriuret Pep 3280 H, Total Protein 6.1 L, Albumin 3.7, Globulin 2.4, Albumin/Globulin Ratio 1.5, Triglycerides 146, Cholesterol 168, LDL Cholesterol Direct 102.53, VLDL Cholesterol 29, HDL Cholesterol 35 L, Cholesterol/HDL Ratio 4.8 H, Procalcitonin 0.063, Plasma/Serum Alcohol < 10 04/11/24 01:34: VBG pH 7.09 L, VBG pCO2 63.4 H, VBG pO2 70.0 H, VBG HCO3 18.6 L, VBG Total CO2 20.6 L, VBG O2 Saturation 87.4 H, VBG Base Excess -11.3 L, VBG Lactic Acid 5.5 H 04/11/24 01:35: HCV Ab GRACIA w/Rflx PCR Qn Negative, HIV Ag/Ab Combo Qual Negative 04/11/24 01:50: WBC 22.7 H*, RBC 4.51, Hgb 11.6 L, Hct 41.9, MCV 92.9, MCH 25.7 L, MCHC 27.7 L, RDW 15.9, Plt Count 241, MPV 11.1 H, Neut % (Auto) 34.5 L, Lymph % (Auto) 55.7 H, [place] % (Auto) 7.9, Eos % (Auto) 0.8, Baso % (Auto) 0.3, Neut # (Auto) 7.8, Lymph # (Auto) 12.6 H, [place] # (Auto) 1.8 H, Eos # (Auto) 0.2, Baso # (Auto) 0.1, Total Counted 100, Neutrophils % (Manual) 32 L, Band Neutrophils % 7.0, Lymphocytes % (Manual) 50, Monocytes % (Manual) 11 H, Platelet Estimate Normal, RBC Morphology Normal, PT 10.3, INR 0.93, APTT 27.0 04/11/24 02:26: Urine Color Cassandra, Urine Appearance Slightly cloudy, Urine pH 5.5, Ur Specific [place] 1.025, Urine Protein 1+ A, Urine Glucose (UA) Negative, Urine Ketones Negative, Urine Blood 3+ A, Urine Nitrate Negative, Urine Bilirubin Negative, Urine Urobilinogen 0.2, Ur Leukocyte Esterase 2+ A, Urine RBC Tntc, Urine WBC 50-100, Ur Squamous Epith Cells 10-20, Amorphous Sediment 1+, Urine Bacteria 1+, Urine Opiates Screen Positive H, Urine Methadone Screen Negative, Ur Barbituates Screen Negative, Ur Phencyclidine Scrn Negative, Ur Amphetamines Screen Negative, U Benzodiazepines Scrn Negative, Urine Cocaine Screen Negative, U Marijuana (THC) Screen Negative, Chlamy pneumoniae PCR Not detected, Adenovirus (PCR) Not detected, B. pertussis DNA (PCR) Not detected, Coronavirus OC43 (PCR) Not detected, Coronavirus HKU1 (PCR) Not detected, Coronavirus 229E (PCR) Not detected, SARS-CoV-2 (PCR) Not detected, Coronavirus NL63 (PCR) Not detected, Human Metapneumovir PCR Not detected, Influenza A (H1) PCR Not detected, Influ A (H1N1/09) PCR Detected A, Influenza A (H3) PCR Not detected, Influenza Type A (PCR) Not detected, Influenza Type B (PCR) Not detected, M. pneumoniae (PCR) Not detected, Parainfluenza 1 (PCR) Not detected, Parainfluenza 2 (PCR) Not detected, Parainfluenza 3 (PCR) Not detected, Parainfluenza 4 (PCR) Not detected, RSV (PCR) Not detected, Entero/Rhino (PCR) Not detected 04/11/24 05:39: POC Glucose 190 H 04/11/24 06:00: VBG pH 7.34, VBG pCO2 39.4, VBG pO2 93.9 H, VBG HCO3 20.8 L, VBG Total CO2 22.0 L, VBG O2 Saturation 97.0 H, VBG Base Excess -5.0 L, VBG Lactic Acid 3.3 H 04/11/24 06:11: WBC 12.6 H D, RBC 4.16 L, Hgb 10.8 L, Hct 37.9, MCV 91.1, MCH 26.0 L, MCHC 28.5 L, RDW 15.9, Plt Count 179 D, MPV 10.5 H, Neut % (Auto) 88.6 H, Lymph % (Auto) 3.9 L, [place] % (Auto) 6.8, Eos % (Auto) 0.0 L, Baso % (Auto) 0.1, Neut # (Auto) 11.2 H, Lymph # (Auto) 0.5 L, [place] # (Auto) 0.9, Eos # (Auto) 0.0, Baso # (Auto) 0.0, Sodium 141, Potassium 3.9, Chloride 101, Carbon Dioxide 28, Anion Gap 15.9 H, BUN 26 H D, Creatinine 0.80, Estimated Creat Clear 39, Estimated GFR 68, Est GFR ( Amer) 82, Glucose 161 H D, Calcium 8.3 L, Magnesium 1.5 L, Total Bilirubin 0.3, AST 170 H D, ALT 88 H D, Alkaline Phosphatase 158 H, Total Protein 6.3, Albumin 3.7, Globulin 2.6, Albumin/Globulin Ratio 1.4 04/11/24 07:48: Lactate 3.0 H, Troponin I 0.18 H I & O for Labs for Last 24 Hours: Intake & Output 04/11/24 04/12/24 04/13/24 04/14/24 23:59 23:59 23:59 23:59 Intake Total 610 / 610 650 / 650 250 / 250 Output Total 3325 / 3325 2875 / 3425 1800 / 1800 250 / 250 Balance -2715 / -2715 -2225 / -2775 -1550 / -1550 -235 / -235 Weight 140 lb 4.482 oz 135 lb 1.6 oz 125 lb 12.8 oz 122 lb 14.4 oz Intake & Output 04/08/24 04/09/24 04/10/24 04/11/24 23:59 23:59 23:59 23:59 Output Total 750 / 750 Balance -750 / -750 Weight 140 lb 4.8 oz Microbiology Reports for the Last 24 Hours: Microbiology 04/11/24 15:39 Blood Blood Culture - Preliminary NO GROWTH AFTER 48 HOURS 04/11/24 15:28 Blood Blood Culture - Preliminary NO GROWTH AFTER 48 HOURS 04/11/24 13:20 Nose - Nasal MRSA Culture - Final No growth. 04/11/24 02:26 Urine,Clean Catch Urine Culture - Final No growth. Constitutional: Present moderate distress Head: Present normocephalic and atraumatic ENT: Present normal exam, normal oropharynx and mucous membranes moist Neck: Present normal inspection and full ROM Respiratory: Present respiratory distress, rhonchi and diminished air movement; Absent stridor, wheezes or able to speak in complete sentences Cardiac: Present S1/S2, Tachycardia and radial pulses present GI: Present soft and distention; Absent tenderness or guarding Rectal (female): Present deferred (female): Present deferred Skin: Present intact; Absent cyanosis or jaundice Neuro: Present alert and awake; Absent oriented x 3 Extremities: Present normal inspection; Absent clubbing or cyanosis Assessment and Plan *Assessment and plan (1) Acute hypoxic respiratory failure: Status: Acute Category: Medical Code(s): J96.01 - Acute respiratory failure with hypoxia (2) Pneumonia: Status: Acute Qualifiers: Pneumonia type: due to influenza A virus Qualified Code(s): J10.00 - Influenza due to other identified influenza virus with unspecified type of pneumonia Category: Medical Code(s): J18.9 - Pneumonia, unspecified organism (3) Influenza A (H1N1): Status: Acute Category: Medical Code(s): J10.1 - Influenza due to other identified influenza virus with other respiratory manifestations Plan Ms. Osullivan is a 88-year-old history of COPD was brought to the ER from skilled nursing complaining worsening respiratory distress and pulmonary was called for further evaluation and management. Patient opening eyes and responding to painful stimuli. Not responding appropriately verbal commands. Much of the history obtained from chart review. Progressive worsening respiratory distress and worsening lower extremity swelling. CTA on admission, no evidence of pulmonary embolism elevated right hemidiaphragm, bilateral lower lobe consolidative changes right greater than left along with bilateral effusions right greater than left Neutrophilic predominant leukocytosis. Influenza A positive on PCR. ABG upon admission severe hypercarbic respiratory failure, improving with a pH of 7.34 and a pCO2 of 39.4. Receiving ceftriaxone and doxycycline. Interval update: No acute respiratory events overnight. Stable leukocytosis. Continue to receive Tamiflu on antibiotics. Chest x-ray this morning significantly worsening right-sided infiltrate, concerning for atelectasis/worsening effusion. Follow-up with CT chest without contrast. Stable oxygen requirements, currently on 35 L 65%, weaned to 35 L 55%. Will follow. Plan:- -CT chest without contrast. Will follow with imaging to determine the need for thoracentesis. -Continue oseltamavir x 5 days -Continue ceftriaxone and doxycycline pending blood and sputum culture results and nasal MRSA screen -Continue high flow nasal cannula oxygen supplementation to maintain O2 saturation of 90% and above, wean as tolerated -DuoNebs 4 times daily scheduled -Volume optimization as per primary team and cardiology -Incentive spirometry
--- NOTE | 2024-04-14 10:50 | CT_ITS ---
FINAL REPORT TECHNIQUE: Axial images were obtained through the chest without contrast. Coronal and sagittal images were obtained and reviewed. This study was performed with techniques to keep radiation doses as low as reasonably achievable, (ALARA). Individualized dose reduction techniques using automated exposure control or adjustment of mA and/or kV according to the patient's size were employed. CLINICAL HISTORY: effusion / cosolidation COMPARISON: 04/11/2024 FINDINGS: The right lobe of the thyroid is enlarged and asymmetric extending to the level of the sternal notch, probably related to goiter but unchanged from the prior study. There are few small scattered mediastinal lymph nodes. Abnormal elevation of the right hemidiaphragm is noted. The heart size is normal. There is no pericardial or pleural effusion. There is dense consolidation in the posterior right upper lobe, right middle lobe, and right lower lobe. There is high attenuation within the consolidation which may be related to aspiration of barium. The consolidation is more evident than on the previous exam. There is an associated small to moderate pleural effusion. Scarring or atelectasis is noted at the left lung base. Limited images of the upper abdomen demonstrate the gallbladder is absent. An endoscopic biliary stent is present. There are calcified granulomas in the spleen. Subtle density is seen throughout the renal cortices bilaterally. IMPRESSION: Worsening consolidation posterior right upper, right middle, and right lower lobes with associated pleural effusion. Goiter right lobe of the thyroid. Unusual retention of contrast in the renal cortex may be related to hypotension or renal failure. Reviewed, Interpreted and Dictated by Samir Vance MD Transcribed by Elizabeth Dash Authenticated and [facility]
--- NOTE | 2024-04-14 11:08 | HMH.ITSTN ---
CALLED AND SPOKE WITH MIRA @ 11:05 AM . SHE HAS TO ARRANGE TO HAVE SOMEONE WATCH OTHER PATIENTS WHILE SHE COMES DOWN WITH MRS CASTELLANOS. WILL CALL US WHEN READY
[2024-04-14] MEDS: POTASSIUM CHLORIDE 20MEQ TAB 40 MEQ PO ×2 (13:21→16:52)
[2024-04-14 13:38] LABS: POC Glucose,Bedside 127 (70-110)
--- NOTE | 2024-04-14 16:52 | PC.NURSE ---
ordered flutter valve for pt, called and spoke with Aruna in [place] to request flutter valve 1640
--- NOTE | 2024-04-14 16:53 | EXP.ACUTE.PN ---
Subjective *Date: 04/14/24 *Time: 16:53 Interval history: Patient appears more ill and weak this morning. Stable on Vapotherm 35 L and 65%. Increased cough. Decreased p.o. intake. Family at bedside. Complaining of nausea. Medical Exam Vital signs and Labs for Last 24 Hours: Vital Signs Temp Pulse Pulse Resp BP BP Pulse Ox 04/14/24 15:32 04/14/24 15:00 89 18 115/55 L 94 L 04/14/24 14:00 89 15 114/60 95 04/14/24 13:00 90 20 110/68 98 04/14/24 13:00 04/14/24 12:00 89 94 L 04/14/24 12:00 92 H 18 100/48 L 86 L 04/14/24 12:00 90 04/14/24 11:00 92 H 15 115/48 L 90 L 04/14/24 11:00 04/14/24 10:00 109/49 L 04/14/24 10:00 91 H 21 109/49 L 95 04/14/24 09:30 04/14/24 09:00 91 H 18 93/52 L 91 L 04/14/24 08:31 91 H 19 96/53 L 94 L 04/14/24 08:04 98.2 F 89 20 90/51 L 96 04/14/24 08:00 110 H 04/14/24 08:00 90 91 L 04/14/24 08:00 85 16 86/48 L 96 04/14/24 07:00 86 22 106/53 L 94 L 04/14/24 06:35 04/14/24 06:34 89 04/14/24 06:34 88 04/14/24 06:34 93 L 04/14/24 06:00 91 H 22 92/44 L 92 L 04/14/24 06:00 92/44 L 04/14/24 05:00 04/14/24 05:00 94 H 20 93/46 L 92 L 04/14/24 04:00 90 04/14/24 04:00 97.8 F 93 H 18 104/54 L 94 L 04/14/24 04:00 89 94 L 04/14/24 03:00 04/14/24 03:00 91 H 17 94 L 04/14/24 03:00 103/53 L 04/14/24 02:00 94 H 19 110/49 L 92 L 04/14/24 01:00 92 H 16 97 04/14/24 01:00 106/55 L 04/14/24 01:00 04/14/24 00:36 90 04/14/24 00:36 93 H 04/14/24 00:36 93 L 04/14/24 00:00 95 H 94 L 04/14/24 00:00 98 H 04/14/24 00:00 97.8 F 89 18 125/70 93 L 04/13/24 23:00 04/13/24 23:00 95 H 18 132/67 97 04/13/24 23:00 132/67 04/13/24 22:00 103 H 18 120/63 93 L 04/13/24 22:00 120/63 04/13/24 21:01 98 H 22 105/45 L 93 L 04/13/24 20:50 04/13/24 20:00 80 04/13/24 20:00 92 H 96 04/13/24 20:00 97.8 F 88 17 129/62 92 L 04/13/24 19:00 118/60 04/13/24 19:00 94 H 24 118/60 94 L 04/13/24 18:44 04/13/24 18:03 85 04/13/24 18:03 89 04/13/24 18:03 93 L 04/13/24 18:00 87 18 126/67 92 L 04/13/24 17:00 81 15 127/60 93 L 04/13/24 17:00 O2 Del Method O2 Flow Rate FiO2 04/14/24 15:32 Vapotherm 35 04/14/24 15:00 Vapotherm 35 04/14/24 14:00 Vapotherm 35 04/14/24 13:00 Vapotherm 35 55 04/14/24 13:00 Vapotherm 35 04/14/24 12:00 Vapotherm 35 55 04/14/24 12:00 04/14/24 12:00 04/14/24 11:00 Vapotherm 35 04/14/24 11:00 Vapotherm 35 04/14/24 10:00 04/14/24 10:00 Vapotherm 35 04/14/24 09:30 Vapotherm 35 04/14/24 09:00 Vapotherm 35 04/14/24 08:31 Vapotherm 35 04/14/24 08:04 Vapotherm 35 04/14/24 08:00 04/14/24 08:00 Vapotherm 35 65 04/14/24 08:00 Vapotherm 35 04/14/24 07:00 Vapotherm 35 04/14/24 06:35 Vapotherm 35 04/14/24 06:34 04/14/24 06:34 04/14/24 06:34 Vapotherm 35 65 04/14/24 06:00 Vapotherm 35 04/14/24 06:00 04/14/24 05:00 Vapotherm 04/14/24 05:00 Vapotherm 35 04/14/24 04:00 04/14/24 04:00 Vapotherm 35 04/14/24 04:00 Vapotherm 35 65 04/14/24 03:00 Vapotherm 35 04/14/24 03:00 04/14/24 03:00 04/14/24 02:00 Vapotherm 35 04/14/24 01:00 04/14/24 01:00 04/14/24 01:00 Vapotherm 35 04/14/24 00:36 04/14/24 00:36 04/14/24 00:36 Vapotherm 35 65 04/14/24 00:00 Vapotherm 35 65 04/14/24 00:00 04/14/24 00:00 Vapotherm 35 04/13/24 23:00 Vapotherm 04/13/24 23:00 Vapotherm 35 04/13/24 23:00 04/13/24 22:00 Vapotherm 35 04/13/24 22:00 04/13/24 21:01 Vapotherm 04/13/24 20:50 Vapotherm 35 04/13/24 20:00 04/13/24 20:00 Vapotherm 35 65 04/13/24 20:00 Vapotherm 35 04/13/24 19:00 04/13/24 19:00 04/13/24 18:44 Vapotherm 04/13/24 18:03 04/13/24 18:03 04/13/24 18:03 Vapotherm 35 65 04/13/24 18:00 Vapotherm 04/13/24 17:00 04/13/24 17:00 Vapotherm Intake and Output 04/14/24 04/14/24 04/14/24 07:59 15:59 23:59 Intake Total 0 / 265 265 / 265 Output Total 250 / 250 Balance -250 / 15 265 / 15 Intake: Intake, Oral Amount 0 / 15 15 / 15 Intake, Total IV Amount 250 / 250 Doxycycline Hyclate 100 mg In 0 250 / 250 .9 % Sodium Chloride 250 ml @ 166.667 mls/hr IV Q12H [facility] Rx#: [id number] Output: Output, Urine Amount 250 / 250 Other: Number of Unmeasured Voids 0 0 Number of Bowel Movements 1 1 Weight 55.747 kg Patient Weight 04/14/24 23:59 Weight 55.747 kg Laboratory Results - last 24 hr 04/13/24 17:13: POC Glucose 122 H 04/13/24 21:45: POC Glucose 103 04/14/24 05:23: WBC 11.6 H, RBC 4.15 L, Hgb 10.5 L, Hct 36.1 L, MCV 87.0, MCH 25.3 L, MCHC 29.1 L, RDW 15.6, Plt Count 221, MPV 11.3 H, Neut % (Auto) 77.2, Lymph % (Auto) 16.3, [place] % (Auto) 5.9, Eos % (Auto) 0.0 L, Baso % (Auto) 0.2, Neut # (Auto) 9.0 H, Lymph # (Auto) 1.9, [place] # (Auto) 0.7, Eos # (Auto) 0.0, Baso # (Auto) 0.0, Sodium 145, Potassium 3.2 L, Chloride 101, Carbon Dioxide 32 H, Anion Gap 15.2 H, BUN 41 H, Creatinine 1.00, Estimated Creat Clear 34, Estimated GFR 52 L, Est GFR ( Amer) 63, Glucose 98, Calcium 8.4, Magnesium 2.2 D, Total Bilirubin 0.5, AST 57 H, ALT 35, Alkaline Phosphatase 119, Total Protein 6.3, Albumin 3.6, Globulin 2.7, Albumin/Globulin Ratio 1.3 04/14/24 05:52: POC Glucose 103 04/14/24 13:30: POC Glucose 127 H I & O for Labs for Last 24 Hours: Intake & Output 04/11/24 04/12/24 04/13/24 04/14/24 23:59 23:59 23:59 23:59 Intake Total 610 / 610 650 / 650 250 / 250 265 / 265 Output Total 3325 / 3325 2875 / 3425 1800 / 1800 250 / 250 Balance -2715 / -2715 -2225 / -2775 -1550 / -1550 Weight 63.63 kg 61.28 kg 57.062 kg 55.747 kg Microbiology Reports for the Last 24 Hours: Microbiology 04/11/24 15:39 Blood Blood Culture - Preliminary NO GROWTH AFTER 48 HOURS 04/11/24 15:28 Blood Blood Culture - Preliminary NO GROWTH AFTER 48 HOURS Constitutional: Present mild distress, chronically ill appearing and cooperative Head: Present atraumatic and normocephalic ENT: Present normal exam Respiratory: Present accessory muscle use, rhonchi and crackles; Absent wheezes Comment:: Worsening respiratory sounds in right lung field Cardiac: Present Tachycardia Comment:: Irregularly irregular GI: Present soft, tenderness (Mild right upper quadrant) and normal bowel sounds; Absent distention Extremities: Present normal inspection and full ROM Skin: Present intact; Absent erythema Neuro: Present Grossly Intact, alert, awake and moves all extremities Comment:: Oriented to self only, does not know where she is or why Assessment and Plan *Assessment and plan (1) Acute on chronic heart failure with preserved ejection fraction (HFpEF): Status: Acute Category: Medical Code(s): I50.33 - Acute on chronic diastolic (congestive) heart failure (2) Influenza A (H1N1): Status: Acute Category: Medical Code(s): J10.1 - Influenza due to other identified influenza virus with other respiratory manifestations (3) Pneumonia: Status: Acute Qualifiers: Pneumonia type: due to influenza A virus Qualified Code(s): J10.00 - Influenza due to other identified influenza virus with unspecified type of pneumonia Category: Medical Code(s): J18.9 - Pneumonia, unspecified organism (4) Acute hypoxic respiratory failure: Status: Acute Category: Medical Code(s): J96.01 - Acute respiratory failure with hypoxia (5) Hypercarbia: Status: Acute Category: Medical Code(s): R06.89 - Other abnormalities of breathing (6) UTI (urinary tract infection): Status: Acute Qualifiers: Hematuria presence: without hematuria Urinary tract infection type: acute cystitis Qualified Code(s): N30.00 - Acute cystitis without hematuria Category: Medical Code(s): N39.0 - Urinary tract infection, site not specified (7) Altered mental status, unspecified: Status: Acute Qualifiers: Altered mental status type: stupor Qualified Code(s): R40.1 - Stupor Category: Medical Code(s): R41.82 - Altered mental status, unspecified (8) Dementia: Status: Chronic Qualifiers: Dementia type: associated with other underlying disease Dementia behavioral disturbance: without behavioral disturbance Qualified Code(s): F02.80 - Dementia in other diseases classified elsewhere without behavioral disturbance Category: Medical Code(s): F03.90 - Unspecified dementia, unspecified severity, without behavioral disturbance, psychotic disturbance, mood disturbance, and anxiety Plan Kathy Osullivan is a 88-year-old female who presents from [facility] with shortness of breath, acute metabolic encephalopathy and was admitted for acute hypoxic, hypercapnic respiratory failure secondary to COPD exacerbation, influenza A, multifocal pneumonia, HFpEF exacerbation. Continuing treatment for H1N1 flu, intermittent delirium after Tamiflu. Necessitating ICU level care. Weaning Vapotherm. Currently 35 L, 65%. Tolerating a slow wean. Patient clinically just appears worse today, labs and oxygen requirement stable however more weak. Initiated Zofran for nausea. Prognosis poor, condition serious. Problems addressed as follows: #Acute hypoxic, hypercapnic respiratory failure #Acute metabolic encephalopathy ? Currently requiring Vapotherm 35L, 65%. Will wean as tolerated. goal sats >90% ? Secondary to COPD exacerbation, influenza A, multifocal pneumonia, HFpEF exacerbation. See separate problems. #Sepsis #Multifocal pneumonia #UTI #Influenza A #Bibasilar pleural effusions ? Initial WBC 22.7, with tachycardia, tachypnea, hypoxia. UA grossly abnormal. ? Discussed case with pulmonology, recommend continuing Tamiflu for 5 days, ceftriaxone and doxycycline pending sputum culture. Continue high flow nasal cannula, wean as tolerated for goal sats greater 90%. DuoNebs scheduled every 6 hours. -Recommended CT of chest today. Per my review, has worsening consolidation in all lung trejo on the right. -White count remains elevated 11.6. Hemoglobin 10.5. Repeat CBC, CMP, magnesium ordered for the morning. -Kidney function remains at baseline with BUN 41, creatinine 1.0. Magnesium 2.2, potassium 3.2 replacing per protocol ? Continue ceftriaxone, doxycycline day 4/5. ? Continue Tamiflu day 4/5. Renally dosed at 30 mg p.o. twice daily ? Follow-up sputum, urine, blood cultures, MRSA screen. #HFpEF exacerbation ? Initial BNP 3280 with volume overload. ?Continue Bumex 1 mg IV twice daily; -6.5 L since admission. ? echo with stable LV function. Grade 2 diastolic dysfunction. No plan for intervention at this time. #Acute COPD exacerbation ? DuoNebs every 6 hours, Pulmicort twice daily. ? Will continue home prednisone 10 mg daily to avoid withdrawal. #Anxiety/depression: continue home sertraline 75 mg daily. #Restless leg syndrome: continue home ropinirole. Will hold off on gabapentin 100 mg for now to reduce polypharmacy in advanced age. DNR/DNI DVT prophylaxis: Lovenox 40 mg
[2024-04-14 18:08] LABS: POC Glucose,Bedside 138 (70-110)
[2024-04-14 21:09] LABS: POC Glucose,Bedside 113 (70-110)
[2024-04-15] VITALS (29 sets, daily range): BP systolic 101–130; BP diastolic 49–72; PULSE 80–107; RESP 15–22; TEMP 36.5–37.2; O2SAT 90–96; BMI 23.9
[2024-04-15] MEDS: IPRATROPIUM/ALBUTEROL 3 ML NEB IH ×4 (00:54→18:34)
--- NOTE | 2024-04-15 01:53 | PC.NURSE ---
Due to patient having campuzano catheter x5 days, TRN attempting to bladder train patient at this time. Campuzano catheter drained and clamped off. Will monitor for any patient discomfort, and bladder distention.
[2024-04-15] MEDS: CEFTRIAXONE SODIUM 2 GM in 0.9 % SODIUM CHLORIDE 100 ML IV (02:22)
[2024-04-15 06:01] LABS: Basophils % 0.2 % (0.1-2.0); Eosinophils % 0.2 % (0.1-12.0); Hematocrit 38.6 % (37.0-47.0); Hemoglobin 11.2 g/dL (12.2-16.2); Lymphocytes # 2.2 K/mm3 (0.7-4.5); Lymphocytes % 19.1 % (10-50); Mean Corpuscular Hemoglobin 25.6 pg (27.0-31.2); Mean Corpuscular Volume 88.1 fl (81-99); Mean Platelet Volume 11.5 fl (7.4-10.4); Monocytes # 0.8 K/mm3 (0.1-1.0); Monocytes % 6.9 % (1.7-9.3); Neutrophils # 8.5 K/mm3 (1.8-7.8); Neutrophils % 73.3 % (37.0-80.0); Platelet Count 240 K/mm3 (142-424); Red Blood Count 4.38 M/mm3 (4.20-5.40); Red Cell Distribution Width 15.6 % (11.5-17.5); White Blood Count 11.6 K/mm3 (4.8-10.8)
[2024-04-15 06:14] LABS: Alanine Aminotransferase 30 U/L (12-78); Albumin Level 3.8 g/dl (3.5-5.0); Albumin/Globulin Ratio 1.4 (1.1-1.8); Alkaline Phosphatase 104 U/L (38-126); Anion Gap 17.1 mEq/L (5-15); Aspartate Amino Transferase 59 U/L (14-36); Bilirubin,Total 0.5 mg/dl (0.2-1.3); Blood Urea Nitrogen 45 mg/dl (7-17); Calcium 8.9 mg/dl (8.4-10.2); Carbon Dioxide 30 mmol/L (22.0-30.0); Chloride 106 mmol/L (98-107); Creatinine Clearance Estimated 34 mL/min (50-200); Estimated Glomerular Filt Rate 59 ml/min (>60); GFR (African American) 71 ML/MIN (>60); Globulin 2.7 g/dL (1.3-3.2); Glucose 94 mg/dl (74-100); Magnesium 2.1 mg/dl (1.6-2.3); Potassium 4.1 mmoL/L (3.5-5.1); Sodium 149 mmol/L (136-145); Total Protein,Serum 6.5 g/dl (6.3-8.2)
[2024-04-15 06:56] LABS: POC Glucose,Bedside 101 (70-110)
[2024-04-15] MEDS: ENOXAPARIN 40MG/0.4ML SYRINGE 40 MG SUBCUT (09:04)
[2024-04-15] MEDS: DOXYCYCLINE HYCLATE 100 MG in 0.9 % SODIUM CHLORIDE 250 ML 166.667 MG IV ×2 (09:04→20:10)
[2024-04-15] MEDS: SODIUM CHLORIDE 0.9% 10ML VIAL 10 ML IV ×2 (09:05→20:09)
[2024-04-15] MEDS: PANTOPRAZOLE 40MG VIAL 40 MG IV ×2 (09:05→20:09)
[2024-04-15] MEDS: ROPINIROLE 1MG TABLET 2 MG PO ×2 (09:05→20:09)
[2024-04-15] MEDS: SERTRALINE 50MG TABLET 75 MG PO (09:06)
[2024-04-15] MEDS: OSELTAMIVIR PHOSPHATE 6MG/ML ORAL SUSP 60ML 30 MG PO ×2 (09:10→20:09)
--- NOTE | 2024-04-15 09:28 | P.PN_ITS ---
Subjective *Date: 04/15/24 *Time: 12:04 Interval history: No acute respiratory vents overnight. Patient denies any new respiratory complaints. Pulmonology Exam Inpatient Vital signs and Labs for Last 24 Hours: Temp Pulse Resp BP Pulse Ox O2 Del Method O2 Flow Rate 98.6 F 94 H 16 121/65 94 L Vapotherm 35 04/15/24 08:00 04/15/24 09:00 04/15/24 09:00 04/15/24 09:00 04/15/24 09:00 04/15/24 09:00 04/15/24 09:00 FiO2 45 04/15/24 08:47 Laboratory Results - last 24 hr 04/14/24 13:30: POC Glucose 127 H 04/14/24 18:01: POC Glucose 138 H 04/14/24 21:02: POC Glucose 113 H 04/15/24 05:33: WBC 11.6 H, RBC 4.38, Hgb 11.2 L, Hct 38.6, MCV 88.1, MCH 25.6 L , MCHC 29.0 L, RDW 15.6, Plt Count 240, MPV 11.5 H, Neut % (Auto) 73.3, Lymph % (Auto) 19.1, Lawrence % (Auto) 6.9, Eos % (Auto) 0.2, Baso % (Auto) 0.2, Neut # (Auto) 8.5 H, Lymph # (Auto) 2.2, Lawrence # (Auto) 0.8, Eos # (Auto) 0.0, Baso # (Auto) 0.0, Sodium 149 H, Potassium 4.1 D, Chloride 106, Carbon Dioxide 30, Anion Gap 17.1 H, BUN 45 H, Creatinine 0.90, Estimated Creat Clear 34, Estimated GFR 59, Est GFR ( Amer) 71, Glucose 94, Calcium 8.9, Magnesium 2.1, Total Bilirubin 0.5, AST 59 H, ALT 30, Alkaline Phosphatase 104, Total Protein 6.5, Albumin 3.8, Globulin 2.7, Albumin/Globulin Ratio 1.4 04/15/24 06:50: POC Glucose 101 Temp Pulse Resp BP Pulse Ox O2 Del Method O2 Flow Rate 98.6 F 94 H 18 129/59 L 99 Vapotherm 25 04/11/24 07:59 04/11/24 07:59 04/11/24 07:59 04/11/24 07:59 04/11/24 09:41 04/11/24 09:41 04/11/24 09:41 FiO2 80 04/11/24 09:41 Laboratory Results - last 24 hr 04/11/24 01:30: Sodium 139, Potassium 4.5, Chloride 104, Carbon Dioxide 22, Anion Gap 17.5 H, BUN 20 H, Creatinine 0.70, Estimated Creat Clear 47, Estimated GFR 79, Est GFR ( Amer) 96, Glucose 303 H, Calcium 8.5, Total Bilirubin 0.3, AST 83 H, ALT 42, Alkaline Phosphatase 125, Troponin I 0.05 H, NT-Pro-B Natriuret Pep 3280 H, Total Protein 6.1 L, Albumin 3.7, Globulin 2.4, Albumin/Globulin Ratio 1.5, Triglycerides 146, Cholesterol 168, LDL Cholesterol Direct 102.53, VLDL Cholesterol 29, HDL Cholesterol 35 L, Cholesterol/HDL Ratio 4.8 H, Procalcitonin 0.063, Plasma/Serum Alcohol < 10 04/11/24 01:34: VBG pH 7.09 L, VBG pCO2 63.4 H, VBG pO2 70.0 H, VBG HCO3 18.6 L, VBG Total CO2 20.6 L, VBG O2 Saturation 87.4 H, VBG Base Excess -11.3 L, VBG Lactic Acid 5.5 H 04/11/24 01:35: HCV Ab GRACIA w/Rflx PCR Qn Negative, HIV Ag/Ab Combo Qual Negative 04/11/24 01:50: WBC 22.7 H*, RBC 4.51, Hgb 11.6 L, Hct 41.9, MCV 92.9, MCH 25.7 L, MCHC 27.7 L, RDW 15.9, Plt Count 241, MPV 11.1 H, Neut % (Auto) 34.5 L, Lymph % (Auto) 55.7 H, Lawrence % (Auto) 7.9, Eos % (Auto) 0.8, Baso % (Auto) 0.3, Neut # (Auto) 7.8, Lymph # (Auto) 12.6 H, Lawrence # (Auto) 1.8 H, Eos # (Auto) 0.2, Baso # (Auto) 0.1, Total Counted 100, Neutrophils % (Manual) 32 L, Band Neutrophils % 7.0, Lymphocytes % (Manual) 50, Monocytes % (Manual) 11 H, Platelet Estimate Normal, RBC Morphology Normal, PT 10.3, INR 0.93, APTT 27.0 04/11/24 02:26: Urine Color Cassandra, Urine Appearance Slightly cloudy, Urine pH 5.5, Ur Specific [place] 1.025, Urine Protein 1+ A, Urine Glucose (UA) Negative, Urine Ketones Negative, Urine Blood 3+ A, Urine Nitrate Negative, Urine Bilirubin Negative, Urine Urobilinogen 0.2, Ur Leukocyte Esterase 2+ A, Urine RBC Tntc, Urine WBC 50-100, Ur Squamous Epith Cells 10-20, Amorphous Sediment 1+, Urine Bacteria 1+, Urine Opiates Screen Positive H, Urine Methadone Screen Negative, Ur Barbituates Screen Negative, Ur Phencyclidine Scrn Negative, Ur Amphetamines Screen Negative, U Benzodiazepines Scrn Negative, Urine Cocaine Screen Negative, U Marijuana (THC) Screen Negative, Chlamy pneumoniae PCR Not detected, Adenovirus (PCR) Not detected, B. pertussis DNA (PCR) Not detected, Coronavirus OC43 (PCR) Not detected, Coronavirus HKU1 (PCR) Not detected, Coronavirus 229E (PCR) Not detected, SARS-CoV-2 (PCR) Not detected, Coronavirus NL63 (PCR) Not detected, Human Metapneumovir PCR Not detected, Influenza A (H1) PCR Not detected, Influ A (H1N1/09) PCR Detected A, Influenza A (H3) PCR Not detected, Influenza Type A (PCR) Not detected, Influenza Type B (PCR) Not detected, M. pneumoniae (PCR) Not detected, Parainfluenza 1 (PCR) Not detected, Parainfluenza 2 (PCR) Not detected, Parainfluenza 3 (PCR) Not detected, Parainfluenza 4 (PCR) Not detected, RSV (PCR) Not detected, Entero/Rhino (PCR) Not detected 04/11/24 05:39: POC Glucose 190 H 04/11/24 06:00: VBG pH 7.34, VBG pCO2 39.4, VBG pO2 93.9 H, VBG HCO3 20.8 L, VBG Total CO2 22.0 L, VBG O2 Saturation 97.0 H, VBG Base Excess -5.0 L, VBG Lactic Acid 3.3 H 04/11/24 06:11: WBC 12.6 H D, RBC 4.16 L, Hgb 10.8 L, Hct 37.9, MCV 91.1, MCH 26 .0 L, MCHC 28.5 L, RDW 15.9, Plt Count 179 D, MPV 10.5 H, Neut % (Auto) 88.6 H, Lymph % (Auto) 3.9 L, Lawrence % (Auto) 6.8, Eos % (Auto) 0.0 L, Baso % (Auto) 0.1, Neut # (Auto) 11.2 H, Lymph # (Auto) 0.5 L, Lawrence # (Auto) 0.9, Eos # (Auto) 0.0, Baso # (Auto) 0.0, Sodium 141, Potassium 3.9, Chloride 101, Carbon Dioxide 28, Anion Gap 15.9 H, BUN 26 H D, Creatinine 0.80, Estimated Creat Clear 39, Estimated GFR 68, Est GFR ( Amer) 82, Glucose 161 H D, Calcium 8.3 L, Magnesium 1.5 L, Total Bilirubin 0.3, AST 170 H D, ALT 88 H D, Alkaline Phosphatase 158 H, Total Protein 6.3, Albumin 3.7, Globulin 2.6, Albumin/Globu gomez Ratio 1.4 04/11/24 07:48: Lactate 3.0 H, Troponin I 0.18 H I & O for Labs for Last 24 Hours: Intake & Output 04/12/24 04/13/24 04/14/24 04/15/24 23:59 23:59 23:59 23:59 Intake Total 650 / 650 250 / 250 265 / 265 120 / 120 Output Total 2875 / 3425 1800 / 1800 850 / 1050 300 / 300 Balance -2225 / -2775 -1550 / -1550 -585 / -785 -180 / -180 Weight 135 lb 1.6 oz 125 lb 12.8 oz 122 lb 14.4 oz 122 lb 0.273 oz Intake & Output 04/08/24 04/09/24 04/10/24 04/11/24 23:59 23:59 23:59 23:59 Output Total 750 / 750 Balance -750 / -750 Weight 140 lb 4.8 oz Constitutional: Present moderate distress Head: Present normocephalic and atraumatic ENT: Present normal exam, normal oropharynx and mucous membranes moist Neck: Present normal inspection and full ROM Respiratory: Present respiratory distress, rhonchi, distant breath sounds and diminished air movement; Absent stridor, wheezes or able to speak in complete sentences Cardiac: Present S1/S2, Tachycardia and radial pulses present GI: Present soft and distention; Absent tenderness or guarding Rectal (female): Present deferred (female): Present deferred Skin: Present intact; Absent cyanosis or jaundice Neuro: Present alert and awake; Absent oriented x 3 Extremities: Present normal inspection; Absent clubbing or cyanosis Assessment and Plan *Assessment and plan (1) Acute hypoxic respiratory failure: Status: Acute Category: Medical Code(s): J96.01 - Acute respiratory failure with hypoxia (2) Pneumonia: Status: Acute Qualifiers: Pneumonia type: due to influenza A virus Qualified Code(s): J10.00 - Influenza due to other identified influenza virus with unspecified type of pneumonia Category: Medical Code(s): J18.9 - Pneumonia, unspecified organism (3) Influenza A (H1N1): Status: Acute Category: Medical Code(s): J10.1 - Influenza due to other identified influenza virus with other respiratory manifestations (4) Collapse, lung: Status: Acute Category: Medical Code(s): J98.19 - Other pulmonary collapse Plan Ms. Osullivan is a 88-year-old history of COPD was brought to the ER from half-way complaining worsening respiratory distress and pulmonary was called for further evaluation and management. Patient opening eyes and responding to painful stimuli. Not responding appropriately verbal commands. Much of the history obtained from chart review. Progressive worsening respiratory distress and worsening lower extremity swelling. CTA on admission, no evidence of pulmonary embolism elevated right hemidiaphragm, bilateral lower lobe consolidative changes right greater than left along with bilateral effusions right greater than left Neutrophilic predominant leukocytosis. Influenza A positive on PCR. ABG upon admission severe hypercarbic respiratory failure, improving with a pH of 7.34 and a pCO2 of 39.4. Receiving ceftriaxone and doxycycline. Interval update: Repeat CT chest prominent right consolidative/atelectatic changes with near complete occlusion of the right mainstem bronchus concern for mucous plugging. Significant worsening of the noted effusion noted. Will hold off on performing thoracentesis at this point of time. Plan:- -Aggressive chest percussion therapy 3 -4 times daily. Patient DNR/DNI - Mucomyst twice daily scheduled -Continue oseltamavir x 5 days -Continue ceftriaxone and doxycycline 5 days -Continue high flow nasal cannula oxygen supplementation to maintain O2 saturation of 90% and above, wean as tolerated -DuoNebs 4 times daily scheduled -Volume optimization as per primary team and cardiology -Incentive spirometry
[2024-04-15] MEDS: GUAIFENESIN/DEXTROMETHORPHAN 200MG/20MG 10ML UDC 10 ML PO (11:32)
[2024-04-15] MEDS: ONDANSETRON 4MG/2ML VIAL 4 MG IV (11:33)
--- NOTE | 2024-04-15 18:16 | EXP.ACUTE.PN ---
Subjective *Date: 04/15/24 *Time: 21:53 Interval history: Patient appears little more comfortable today. Still requiring significant oxygen with Vapotherm. Tolerated a small portion of breakfast. Family at bedside. Interactive on exam. Afebrile. Medical Exam Vital signs and Labs for Last 24 Hours: Vital Signs Temp Pulse Resp BP Pulse Ox O2 Del Method O2 Flow Rate 04/15/24 18:00 107 H 18 117/61 96 Vapotherm 35 04/15/24 17:00 88 22 93 L Vapotherm 04/15/24 17:00 110/49 L 04/15/24 17:00 Vapotherm 04/15/24 16:00 99 H 04/15/24 16:00 98.1 F 91 H 21 127/63 93 L Vapotherm 35 04/15/24 16:00 127/63 04/15/24 16:00 Vapotherm 04/15/24 15:00 95 H 19 122/60 94 L Vapotherm 35 04/15/24 15:00 Room Air 04/15/24 14:00 93 H 18 110/57 L 93 L Vapotherm 35 04/15/24 13:00 96 H 20 126/63 91 L Vapotherm 35 04/15/24 13:00 Vapotherm 04/15/24 12:05 Vapotherm 04/15/24 12:00 99 H 04/15/24 12:00 98.1 F 85 20 112/64 92 L Vapotherm 35 04/15/24 11:00 Vapotherm 04/15/24 11:00 99 H 20 110/67 96 Vapotherm 35 04/15/24 10:00 103 H 18 109/61 L 96 Vapotherm 35 04/15/24 09:00 94 H 16 121/65 94 L Vapotherm 35 04/15/24 08:47 35 04/15/24 08:40 Vapotherm 04/15/24 08:15 Vapotherm 04/15/24 08:00 98.6 F 98 H 18 120/60 93 L Vapotherm 35 04/15/24 07:59 90 04/15/24 07:00 93 H 20 119/71 95 Vapotherm 35 04/15/24 07:00 Vapotherm 35 04/15/24 06:49 94 H 04/15/24 06:49 95 H 04/15/24 06:49 96 Vapotherm 35 04/15/24 06:00 90 17 118/68 95 Vapotherm 35 04/15/24 05:00 123/72 04/15/24 05:00 98.9 F 90 17 123/72 96 Vapotherm 35 04/15/24 05:00 Vapotherm 35 04/15/24 04:00 Vapotherm 35 04/15/24 04:00 90 04/15/24 04:00 102/54 L 04/15/24 04:00 92 H 15 102/54 L 93 L Vapotherm 35 04/15/24 03:00 101/58 L 04/15/24 03:00 90 19 90 L 04/15/24 03:00 Vapotherm 35 04/15/24 02:00 118/61 04/15/24 02:00 93 H 17 118/61 94 L Vapotherm 35 04/15/24 01:00 Vapotherm 35 04/15/24 01:00 91 H 15 129/66 94 L Vapotherm 35 04/15/24 00:59 85 04/15/24 00:59 87 04/15/24 00:00 90 04/15/24 00:00 98.6 F 89 22 105/57 L 94 L Vapotherm 35 04/15/24 00:00 105/57 L 04/14/24 23:00 89 17 115/62 94 L Vapotherm 35 04/14/24 23:00 Vapotherm 35 04/14/24 22:00 91 H 13 107/56 L 92 L Vapotherm 35 04/14/24 21:00 91 H 18 111/60 90 L Vapotherm 35 04/14/24 21:00 Vapotherm 35 04/14/24 20:04 98.0 F 87 16 112/58 L 92 L Vapotherm 35 04/14/24 19:00 93 H 20 115/64 94 L Vapotherm 35 04/14/24 18:52 Vapotherm 35 FiO2 04/15/24 18:00 04/15/24 17:00 04/15/24 17:00 04/15/24 17:00 04/15/24 16:00 04/15/24 16:00 04/15/24 16:00 04/15/24 16:00 04/15/24 15:00 04/15/24 15:00 04/15/24 14:00 04/15/24 13:00 04/15/24 13:00 04/15/24 12:05 04/15/24 12:00 04/15/24 12:00 04/15/24 11:00 04/15/24 11:00 04/15/24 10:00 04/15/24 09:00 04/15/24 08:47 45 04/15/24 08:40 04/15/24 08:15 04/15/24 08:00 04/15/24 07:59 04/15/24 07:00 04/15/24 07:00 04/15/24 06:49 04/15/24 06:49 04/15/24 06:49 55 04/15/24 06:00 04/15/24 05:00 04/15/24 05:00 04/15/24 05:00 04/15/24 04:00 55 04/15/24 04:00 04/15/24 04:00 04/15/24 04:00 04/15/24 03:00 04/15/24 03:00 04/15/24 03:00 04/15/24 02:00 04/15/24 02:00 04/15/24 01:00 04/15/24 01:00 04/15/24 00:59 04/15/24 00:59 04/15/24 00:00 04/15/24 00:00 04/15/24 00:00 04/14/24 23:00 04/14/24 23:00 04/14/24 22:00 04/14/24 21:00 04/14/24 21:00 04/14/24 20:04 04/14/24 19:00 04/14/24 18:52 Intake and Output 04/15/24 04/15/24 04/15/24 07:59 15:59 23:59 Intake Total 430 / 510 80 / 510 Output Total 300 / 300 0 / 300 Balance -300 / 210 430 / 210 80 / 210 Intake: Intake, Oral Amount 180 / 260 80 / 260 Intake, Total IV Amount 250 / 250 Doxycycline Hyclate 100 mg In 0 250 / 250 .9 % Sodium Chloride 250 ml @ 166.667 mls/hr IV Q12H [facility] Rx#: [id number] Output: Output, Urine Amount 300 / 300 0 / 300 Other: Number of Unmeasured Voids 1 1 Number of Bowel Movements 1 Weight 55.346 kg Patient Weight 04/15/24 23:59 Weight 55.346 kg Laboratory Results - last 24 hr 04/14/24 21:02: POC Glucose 113 H 04/15/24 05:33: WBC 11.6 H, RBC 4.38, Hgb 11.2 L, Hct 38.6, MCV 88.1, MCH 25.6 L, MCHC 29.0 L, RDW 15.6, Plt Count 240, MPV 11.5 H, Neut % (Auto) 73.3, Lymph % (Auto) 19.1, [place] % (Auto) 6.9, Eos % (Auto) 0.2, Baso % (Auto) 0.2, Neut # (Auto) 8.5 H, Lymph # (Auto) 2.2, [place] # (Auto) 0.8, Eos # (Auto) 0.0, Baso # (Auto) 0.0, Sodium 149 H, Potassium 4.1 D, Chloride 106, Carbon Dioxide 30, Anion Gap 17.1 H, BUN 45 H, Creatinine 0.90, Estimated Creat Clear 34, Estimated GFR 59, Est GFR ( Amer) 71, Glucose 94, Calcium 8.9, Magnesium 2.1, Total Bilirubin 0.5, AST 59 H, ALT 30, Alkaline Phosphatase 104, Total Protein 6.5, Albumin 3.8, Globulin 2.7, Albumin/Globulin Ratio 1.4 04/15/24 06:50: POC Glucose 101 I & O for Labs for Last 24 Hours: Intake & Output 04/12/24 04/13/24 04/14/24 04/15/24 23:59 23:59 23:59 23:59 Intake Total 650 / 650 250 / 250 265 / 265 510 / 510 Output Total 2875 / 3425 1800 / 1800 850 / 1050 300 / 300 Balance -2225 / -2775 -1550 / -1550 -585 / -785 210 / 210 Weight 61.28 kg 57.062 kg 55.747 kg 55.346 kg Microbiology Reports for the Last 24 Hours: Microbiology 04/11/24 15:28 Blood Blood Culture - Preliminary NO GROWTH AFTER 4 DAYS 04/11/24 15:39 Blood Blood Culture - Preliminary NO GROWTH AFTER 4 DAYS Constitutional: Present mild distress, chronically ill appearing and cooperative Head: Present atraumatic and normocephalic ENT: Present normal exam Respiratory: Present accessory muscle use, rhonchi and crackles; Absent wheezes Comment:: Worsening respiratory sounds in right lung field Cardiac: Present Tachycardia Comment:: Irregularly irregular GI: Present soft, tenderness (Mild right upper quadrant) and normal bowel sounds; Absent distention Extremities: Present normal inspection and full ROM Skin: Present intact; Absent erythema Neuro: Present Grossly Intact, alert, awake and moves all extremities Comment:: Oriented to self only, does not know where she is or why Assessment and Plan *Assessment and plan (1) Acute on chronic heart failure with preserved ejection fraction (HFpEF): Status: Acute Category: Medical Code(s): I50.33 - Acute on chronic diastolic (congestive) heart failure (2) Influenza A (H1N1): Status: Acute Category: Medical Code(s): J10.1 - Influenza due to other identified influenza virus with other respiratory manifestations (3) Pneumonia: Status: Acute Qualifiers: Pneumonia type: due to influenza A virus Qualified Code(s): J10.00 - Influenza due to other identified influenza virus with unspecified type of pneumonia Category: Medical Code(s): J18.9 - Pneumonia, unspecified organism (4) Acute hypoxic respiratory failure: Status: Acute Category: Medical Code(s): J96.01 - Acute respiratory failure with hypoxia (5) Hypercarbia: Status: Acute Category: Medical Code(s): R06.89 - Other abnormalities of breathing (6) UTI (urinary tract infection): Status: Acute Qualifiers: Hematuria presence: without hematuria Urinary tract infection type: acute cystitis Qualified Code(s): N30.00 - Acute cystitis without hematuria Category: Medical Code(s): N39.0 - Urinary tract infection, site not specified (7) Altered mental status, unspecified: Status: Acute Qualifiers: Altered mental status type: stupor Qualified Code(s): R40.1 - Stupor Category: Medical Code(s): R41.82 - Altered mental status, unspecified (8) Dementia: Status: Chronic Qualifiers: Dementia type: associated with other underlying disease Dementia behavioral disturbance: without behavioral disturbance Qualified Code(s): F02.80 - Dementia in other diseases classified elsewhere without behavioral disturbance Category: Medical Code(s): F03.90 - Unspecified dementia, unspecified severity, without behavioral disturbance, psychotic disturbance, mood disturbance, and anxiety Plan Kathy Osullivan is a 88-year-old female who presents from [facility] with shortness of breath, acute metabolic encephalopathy and was admitted for acute hypoxic, hypercapnic respiratory failure secondary to COPD exacerbation, influenza A, multifocal pneumonia, HFpEF exacerbation. Continuing treatment for H1N1 flu, intermittent delirium after Tamiflu. Necessitating ICU level care. Weaning Vapotherm. Currently 35 L, 65%. Tolerating a slow wean. Patient clinically appears marginally better from yesterday. Little bit more interactive. Continue weaning Vapotherm. Continue Zofran for nausea. Prognosis poor, condition serious. Problems addressed as follows: #Acute hypoxic, hypercapnic respiratory failure #Acute metabolic encephalopathy ? Currently requiring Vapotherm 35L, 45%. Will wean as tolerated. goal sats >90% ? Secondary to COPD exacerbation, influenza A, multifocal pneumonia, HFpEF exacerbation. See separate problems. #Sepsis #Multifocal pneumonia #UTI #Influenza A #Bibasilar pleural effusions ? Initial WBC 22.7, with tachycardia, tachypnea, hypoxia. UA grossly abnormal. ? Discussed case with pulmonology, recommend continuing Tamiflu for at least 5 days. Continue ceftriaxone and doxycycline pending sputum culture. Continue high flow nasal cannula, wean as tolerated for goal sats greater 90%. DuoNebs scheduled every 6 hours. -Continue percussion today, flutter valve. Initiate Mucomyst twice daily. -White count stable at 11.1. Hemoglobin 11.2. Repeat CBC, CMP, magnesium ordered for the morning. -Kidney function remains at baseline with BUN 45, creatinine 0.9, Magnesium 2.1, potassium 4.1. No replacement needed today. ? Continue ceftriaxone, doxycycline day 5/5. ? Continue Tamiflu day 5. Renally dosed at 30 mg p.o. twice daily ? Follow-up sputum, urine, blood cultures, MRSA screen. #HFpEF exacerbation ? Initial BNP 3280 with volume overload. ? Holding Bumex today. Patient appears euvolemic. Negative at least 7 L since admission. ? echo with stable LV function. Grade 2 diastolic dysfunction. No plan for intervention at this time. #Acute COPD exacerbation ? DuoNebs every 6 hours, Pulmicort twice daily. ? Will continue home prednisone 10 mg daily to avoid withdrawal. #Anxiety/depression: continue home sertraline 75 mg daily. #Restless leg syndrome: continue home ropinirole. Will hold off on gabapentin 100 mg for now to reduce polypharmacy in advanced age. DNR/DNI DVT prophylaxis: Lovenox 40 mg
[2024-04-15] MEDS: ACETYLCYSTEINE 20% 4ML VIAL 2 ML IH (18:34)
--- NOTE | 2024-04-15 22:25 | PC.NURSE ---
She is alert to person with confusion. She keeps asking for her family and to call the police. She continues in droplet precautions for the flu. Bed alarm is on. Her right hand is contracted. Trace edema to BLE. Afib with BBB on telemetry. She continues with vapotherm at 35LPM 45% FiO2. She has a non-productive cough. She was able to use the incentive spirometer but does not understand instruction on how to use it properly and needs frequent redirection while using it. Glucose 110 at night.
[2024-04-16] VITALS (26 sets, daily range): BP systolic 101–127; BP diastolic 48–67; PULSE 86–101; RESP 12–25; TEMP 36.4–37.2; O2SAT 90–100; BMI 24.7
[2024-04-16] MEDS: IPRATROPIUM/ALBUTEROL 3 ML NEB IH ×5 (00:34→23:36)
[2024-04-16] MEDS: CEFTRIAXONE SODIUM 2 GM in 0.9 % SODIUM CHLORIDE 100 ML IV (02:03)
--- NOTE | 2024-04-16 02:47 | PC.NURSE ---
Vapotherm weaned to 35LPM 40% FiO2.
[2024-04-16 04:10] LABS: Basophils % 0.1 % (0.1-2.0); Eosinophils # 0.1 K/mm3 (0.0-0.4); Eosinophils % 0.7 % (0.1-12.0); Lymphocytes # 1.9 K/mm3 (0.7-4.5); Mean Corpuscular Volume 88.1 fl (81-99); Monocytes # 0.7 K/mm3 (0.1-1.0); Monocytes % 7.3 % (1.7-9.3); Neutrophils # 6.9 K/mm3 (1.8-7.8); Neutrophils % 71.3 % (37.0-80.0); Platelet Count 230 K/mm3 (142-424); Red Cell Distribution Width 15.6 % (11.5-17.5); White Blood Count 9.7 K/mm3 (4.8-10.8)
[2024-04-16 04:13] LABS: Hematocrit 34.8 % (37.0-47.0); Hemoglobin 10.4 g/dL (12.2-16.2); Mean Corpuscular HGB Conc 29.9 g/dL (31.8-35.4); Mean Corpuscular Hemoglobin 26.3 pg (27.0-31.2); Mean Platelet Volume 11.4 fl (7.4-10.4); Red Blood Count 3.95 M/mm3 (4.20-5.40)
[2024-04-16 04:17] LABS: Alanine Aminotransferase 24 U/L (12-78); Albumin Level 3.4 g/dl (3.5-5.0); Albumin/Globulin Ratio 1.4 (1.1-1.8); Alkaline Phosphatase 82 U/L (38-126); Anion Gap 9.6 mEq/L (5-15); Aspartate Amino Transferase 54 U/L (14-36); Bilirubin,Total 0.4 mg/dl (0.2-1.3); Blood Urea Nitrogen 41 mg/dl (7-17); Calcium 8.8 mg/dl (8.4-10.2); Carbon Dioxide 33 mmol/L (22.0-30.0); Chloride 107 mmol/L (98-107); Creatinine Clearance Estimated 35 mL/min (50-200); Estimated Glomerular Filt Rate 68 ml/min (>60); GFR (African American) 82 ML/MIN (>60); Globulin 2.5 g/dL (1.3-3.2); Glucose 95 mg/dl (74-100); Potassium 3.6 mmoL/L (3.5-5.1); Sodium 146 mmol/L (136-145); Total Protein,Serum 5.9 g/dl (6.3-8.2)
[2024-04-16] MEDS: ACETYLCYSTEINE 20% 4ML VIAL 2 ML IH ×2 (07:08→18:23)
[2024-04-16 07:27] LABS: POC Glucose,Bedside 109 (70-110)
[2024-04-16 07:27] LABS: POC Glucose,Bedside 108 (70-110)
[2024-04-16 07:27] LABS: POC Glucose,Bedside 106 (70-110)
[2024-04-16 07:27] LABS: POC Glucose,Bedside 110 (70-110)
--- NOTE | 2024-04-16 07:53 | PC.NURSE ---
pt was fed a bite of eggs. pt spit food back out and requested water. water provided. staff made a nectar thick ensure for pt but pt only took a couple of drinks.
--- NOTE | 2024-04-16 08:03 | P.PN_ITS ---
Subjective *Date: 04/16/24 *Time: 17:55 Interval history: Patient appears comfortable this morning. Interactive on exam. Weaned from Vapotherm to nasal cannula on rounds. Tolerated small portion of breakfast. Afebrile. Medical Exam Vital signs and Labs for Last 24 Hours: Vital Signs Temp Pulse Pulse Resp BP BP Pulse Ox 04/16/24 07:10 96 H 04/16/24 07:10 90 04/16/24 07:10 94 L 04/16/24 07:00 95 H 16 119/52 L 95 04/16/24 06:02 04/16/24 06:00 119/62 04/16/24 06:00 96 H 15 95 04/16/24 05:00 106/59 L 04/16/24 05:00 101 H 15 119/62 96 04/16/24 05:00 97 H 15 106/59 L 96 04/16/24 05:00 04/16/24 04:00 99 H 18 92 L 04/16/24 04:00 98.0 F 89 16 123/58 L 94 L 04/16/24 03:28 90 04/16/24 03:21 90 L 04/16/24 03:00 121/61 04/16/24 03:00 91 H 18 121/61 95 04/16/24 02:27 04/16/24 02:00 122/59 L 04/16/24 02:00 92 H 19 92 L 04/16/24 01:00 109/50 L 04/16/24 01:00 94 H 18 93 L 04/16/24 00:37 95 H 04/16/24 00:37 94 H 04/16/24 00:37 95 04/16/24 00:26 04/16/24 00:00 112/54 L 04/16/24 00:00 87 12 122/59 L 93 L 04/16/24 00:00 97.6 F 87 18 112/54 L 95 04/16/24 00:00 97.6 F 98 H 18 112/54 L 94 L 04/15/24 23:41 95 04/15/24 23:41 90 04/15/24 23:00 87 20 130/69 95 04/15/24 22:33 04/15/24 22:00 98.2 F 90 22 123/67 93 L 04/15/24 21:00 98.5 F 04/15/24 21:00 04/15/24 21:00 94 H 21 116/51 L 95 04/15/24 20:00 96 04/15/24 20:00 100 H 04/15/24 20:00 97.7 F 04/15/24 20:00 87 22 110/51 L 92 L 04/15/24 19:15 96 04/15/24 19:00 118/58 L 04/15/24 19:00 80 20 93 L 04/15/24 18:30 04/15/24 18:00 107 H 18 117/61 96 04/15/24 17:00 88 22 93 L 04/15/24 17:00 110/49 L 04/15/24 17:00 04/15/24 16:00 99 H 04/15/24 16:00 98.1 F 91 H 21 127/63 93 L 04/15/24 16:00 127/63 04/15/24 16:00 04/15/24 15:00 95 H 19 122/60 94 L 04/15/24 15:00 04/15/24 14:00 93 H 18 110/57 L 93 L 04/15/24 13:00 96 H 20 126/63 91 L 04/15/24 13:00 04/15/24 12:05 04/15/24 12:00 99 H 04/15/24 12:00 98.1 F 85 20 112/64 92 L 04/15/24 11:00 04/15/24 11:00 99 H 20 110/67 96 04/15/24 10:00 103 H 18 109/61 L 96 04/15/24 09:00 94 H 16 121/65 94 L 04/15/24 08:47 04/15/24 08:40 04/15/24 08:15 O2 Del Method O2 Flow Rate FiO2 04/16/24 07:10 04/16/24 07:10 04/16/24 07:10 Vapotherm 35 40 04/16/24 07:00 Vapotherm 30 04/16/24 06:02 Vapotherm 35 04/16/24 06:00 04/16/24 06:00 04/16/24 05:00 04/16/24 05:00 04/16/24 05:00 Vapotherm 35 04/16/24 05:00 Vapotherm 35 04/16/24 04:00 04/16/24 04:00 04/16/24 03:28 04/16/24 03:21 Vapotherm 35 40 04/16/24 03:00 04/16/24 03:00 04/16/24 02:27 Vapotherm 35 04/16/24 02:00 04/16/24 02:00 04/16/24 01:00 04/16/24 01:00 04/16/24 00:37 04/16/24 00:37 04/16/24 00:37 Vapotherm 35 40 04/16/24 00:26 Vapotherm 35 04/16/24 00:00 04/16/24 00:00 04/16/24 00:00 Vapotherm 04/16/24 00:00 Vapotherm 04/15/24 23:41 Vapotherm 35 45 04/15/24 23:41 04/15/24 23:00 04/15/24 22:33 Vapotherm 35 04/15/24 22:00 Vapotherm 04/15/24 21:00 04/15/24 21:00 Vapotherm 35 04/15/24 21:00 04/15/24 20:00 Vapotherm 35 45 04/15/24 20:00 04/15/24 20:00 04/15/24 20:00 04/15/24 19:15 Vapotherm 35 04/15/24 19:00 04/15/24 19:00 Vapotherm 04/15/24 18:30 Vapotherm 04/15/24 18:00 Vapotherm 35 04/15/24 17:00 Vapotherm 04/15/24 17:00 04/15/24 17:00 Vapotherm 04/15/24 16:00 04/15/24 16:00 Vapotherm 35 04/15/24 16:00 04/15/24 16:00 Vapotherm 04/15/24 15:00 Vapotherm 35 04/15/24 15:00 Room Air 04/15/24 14:00 Vapotherm 35 04/15/24 13:00 Vapotherm 35 04/15/24 13:00 Vapotherm 04/15/24 12:05 Vapotherm 04/15/24 12:00 04/15/24 12:00 Vapotherm 35 04/15/24 11:00 Vapotherm 04/15/24 11:00 Vapotherm 35 04/15/24 10:00 Vapotherm 35 04/15/24 09:00 Vapotherm 35 04/15/24 08:47 35 45 04/15/24 08:40 Vapotherm 04/15/24 08:15 Vapotherm Intake and Output 04/15/24 04/16/24 04/16/24 23:59 07:59 15:59 Intake Total 80 / 510 60 / 60 Balance 80 / 210 60 / 60 Intake: Intake, Oral Amount 80 / 260 60 / 60 Other: Number of Unmeasured Voids 0 Weight 57.243 kg Patient Weight 04/16/24 23:59 Weight 57.243 kg Laboratory Results - last 24 hr 04/15/24 11:34: POC Glucose 108 04/15/24 16:12: POC Glucose 109 04/15/24 19:55: POC Glucose 110 04/16/24 03:39: WBC 9.7, RBC 3.95 L, Hgb 10.4 L, Hct 34.8 L, MCV 88.1, MCH 26.3 L, MCHC 29.9 L, RDW 15.6, Plt Count 230, MPV 11.4 H, Neut % (Auto) 71.3, Lymph % (Auto) 20.0, [place] % (Auto) 7.3, Eos % (Auto) 0.7, Baso % (Auto) 0.1, Neut # (Auto) 6.9, Lymph # (Auto) 1.9, [place] # (Auto) 0.7, Eos # (Auto) 0.1, Baso # (Auto) 0.0, Sodium 146 H, Potassium 3.6, Chloride 107, Carbon Dioxide 33 H, Anion Gap 9.6, BUN 41 H, Creatinine 0.80, Estimated Creat Clear 35, Estimated GFR 68, Est GFR ( Amer) 82, Glucose 95, Calcium 8.8, Magnesium 2.0, Total Bilirubin 0.4, AST 54 H, ALT 24, Alkaline Phosphatase 82, Total Protein 5.9 L, Albumin 3.4 L D, Globulin 2.5, Albumin/Globulin Ratio 1.4 04/16/24 05:43: POC Glucose 106 I & O for Labs for Last 24 Hours: Intake & Output 04/13/24 04/14/24 04/15/24 04/16/24 23:59 23:59 23:59 23:59 Intake Total 250 / 250 265 / 265 510 / 510 Output Total 1800 / 1800 850 / 1050 300 / 300 Balance -1550 / -1550 -585 / -785 210 / 210 60 60 Weight 57.062 kg 55.747 kg 55.346 kg 57.243 kg Microbiology Reports for the Last 24 Hours: Microbiology 04/11/24 15:28 Blood Blood Culture - Preliminary NO GROWTH AFTER 4 DAYS 04/11/24 15:39 Blood Blood Culture - Preliminary NO GROWTH AFTER 4 DAYS Constitutional: Present mild distress, chronically ill appearing and cooperative Head: Present atraumatic and normocephalic ENT: Present normal exam Respiratory: Present accessory muscle use, rhonchi and crackles; Absent wheezes Comment:: Diminished on right side Cardiac: Present Tachycardia Comment:: Irregularly irregular GI: Present soft, tenderness (Mild right upper quadrant) and normal bowel sounds; Absent distention Extremities: Present normal inspection and full ROM Skin: Present intact; Absent erythema Neuro: Present Grossly Intact, alert, awake and moves all extremities Comment:: Oriented to self only, does not know where she is or why Assessment and Plan *Assessment and plan (1) Acute on chronic heart failure with preserved ejection fraction (HFpEF): Status: Acute Category: Medical Code(s): I50.33 - Acute on chronic diastolic (congestive) heart failure (2) Influenza A (H1N1): Status: Acute Category: Medical Code(s): J10.1 - Influenza due to other identified influenza virus with other respiratory manifestations (3) Pneumonia: Status: Acute Qualifiers: Pneumonia type: due to influenza A virus Qualified Code(s): J10.00 - Influenza due to other identified influenza virus with unspecified type of pneumonia Category: Medical Code(s): J18.9 - Pneumonia, unspecified organism (4) Acute hypoxic respiratory failure: Status: Acute Category: Medical Code(s): J96.01 - Acute respiratory failure with hypoxia (5) Hypercarbia: Status: Acute Category: Medical Code(s): R06.89 - Other abnormalities of breathing (6) UTI (urinary tract infection): Status: Acute Qualifiers: Hematuria presence: without hematuria Urinary tract infection type: acute cystitis Qualified Code(s): N30.00 - Acute cystitis without hematuria Category: Medical Code(s): N39.0 - Urinary tract infection, site not specified (7) Altered mental status, unspecified: Status: Acute Qualifiers: Altered mental status type: stupor Qualified Code(s): R40.1 - Stupor Category: Medical Code(s): R41.82 - Altered mental status, unspecified (8) Dementia: Status: Chronic Qualifiers: Dementia type: associated with other underlying disease Dementia behavioral disturbance: without behavioral disturbance Qualified Code(s): F02.80 - Dementia in other diseases classified elsewhere without behavioral disturbance Category: Medical Code(s): F03.90 - Unspecified dementia, unspecified severity, without behavioral disturbance, psychotic disturbance, mood disturbance, and anxiety Plan Kathy Osullivan is a 88-year-old female who presents from [facility] with shortness of breath, acute metabolic encephalopathy and was admitted for acute hypoxic, hypercapnic respiratory failure secondary to COPD exacerbation, influenza A, multifocal pneumonia, HFpEF exacerbation. Continuing treatment for H1N1 flu, intermittent delirium after Tamiflu. Necessitating ICU level care. Weaned Vapotherm to nasal cannula today. Will de-escalate to MedSurg. Patient clinically appears marginally better from yesterday. Little bit more interactive. Continue Zofran for nausea. Prognosis poor, condition serious. Problems addressed as follows: #Acute hypoxic, hypercapnic respiratory failure #Acute metabolic encephalopathy ? Goal sats greater 90%, currently on 4 L nasal cannula oxygen. ? Secondary to COPD exacerbation, influenza A, multifocal pneumonia, HFpEF exacerbation. See separate problems. #Sepsis #Multifocal pneumonia #UTI #Influenza A #Bibasilar pleural effusions ? Initial WBC 22.7, with tachycardia, tachypnea, hypoxia. UA grossly abnormal. ? continuing Tamiflu for at least 5 days. Continue ceftriaxone and doxycycline pending sputum culture. DuoNebs scheduled every 6 hours. - Continue percussion today, flutter valve. Initiate Mucomyst twice daily. - White count 9.7, hemoglobin 10.4. Repeat CBC, CMP, magnesium ordered for the morning. -Kidney function stable with BUN 40, creatinine 0.8. Potassium 3.6, magnesium 2.0 No replacement needed today. ? Continue ceftriaxone, doxycycline day 6 today. ? Continue Tamiflu day 6 today. Consider 10 days total, renally dosing at 30 mg twice daily ? Follow-up sputum, urine, blood cultures, MRSA screen. #HFpEF exacerbation ? Initial BNP 3280 with volume overload. ? Holding Bumex today. Patient appears euvolemic. Negative at least 7 L since admission. ? echo with stable LV function. Grade 2 diastolic dysfunction. No plan for intervention at this time. #Acute COPD exacerbation ? DuoNebs every 6 hours, Pulmicort twice daily. ? Will continue home prednisone 10 mg daily to avoid withdrawal. #Anxiety/depression: continue home sertraline 75 mg daily. #Restless leg syndrome: continue home ropinirole. Will hold off on gabapentin 100 mg for now to reduce polypharmacy in advanced age. DNR/DNI DVT prophylaxis: Lovenox 40 mg
[2024-04-16] MEDS: PANTOPRAZOLE 40MG VIAL 40 MG IV ×2 (08:04→20:21)
[2024-04-16] MEDS: DOXYCYCLINE HYCLATE 100 MG in 0.9 % SODIUM CHLORIDE 250 ML 166.667 MG IV ×2 (08:04→20:21)
[2024-04-16] MEDS: SODIUM CHLORIDE 0.9% 10ML VIAL 10 ML IV (08:04)
[2024-04-16] MEDS: OSELTAMIVIR PHOSPHATE 6MG/ML ORAL SUSP 60ML 30 MG PO ×2 (08:04→20:21)
[2024-04-16] MEDS: ENOXAPARIN 40MG/0.4ML SYRINGE 40 MG SUBCUT (08:04)
[2024-04-16] MEDS: ROPINIROLE 1MG TABLET 2 MG PO ×2 (08:05→20:21)
[2024-04-16] MEDS: SERTRALINE 50MG TABLET 75 MG PO (08:05)
[2024-04-16 11:17] LABS: POC Glucose,Bedside 116 (70-110)
[2024-04-16 16:29] LABS: POC Glucose,Bedside 100 (70-110)
--- NOTE | 2024-04-16 18:07 | PC.NURSE ---
patient is alert to self only. currently on 2LNC o2 sats are above 90%. patient refused 1800 q2 turn. PW remains in place. call light within reach. bed alarm on. family stated she ate more than what she has been eating for dinner, tolerating well. glucose at 1630 was 100. she has a non-productive cough. currently sitting up and watching tv. no c/o pain or nausea. no further requests at this time.
[2024-04-16] MEDS: GUAIFENESIN/DEXTROMETHORPHAN 200MG/20MG 10ML UDC 10 ML PO (20:21)
[2024-04-17] VITALS (13 sets, daily range): BP systolic 94–124; BP diastolic 54–62; PULSE 81–107; RESP 16–18; TEMP 36.4–37.1; O2SAT 90–100; BMI 26.0
[2024-04-17] MEDS: CEFTRIAXONE SODIUM 2 GM in 0.9 % SODIUM CHLORIDE 100 ML IV (02:35)
--- NOTE | 2024-04-17 04:36 | PC.NURSE ---
Addendum entered by Shanda Elliott RN 04/17/24 06:18: Attempted FSBS this am. Pt repeatedly pushed nurse's hands away saying no and 'Im going to hit you . FSBS not done Original Note: Pt is alert and oriented only to self. Pt has been on 5 liters per nc and sats have been around 94%. She has a wet sounding cough but unable to get pt to expectorate. Lung sounds diminished. Pt drinking adeq amounts throughout the night. She remains in a fib with BBB per telemetry. FSBS 129 at 9 pm, other VS WNL
[2024-04-17] MEDS: IPRATROPIUM/ALBUTEROL 3 ML NEB IH ×4 (06:18→23:19)
[2024-04-17] MEDS: ACETYLCYSTEINE 20% 4ML VIAL 2 ML IH ×2 (06:19→18:25)
[2024-04-17] MEDS: SERTRALINE 50MG TABLET 75 MG PO (08:26)
[2024-04-17] MEDS: PANTOPRAZOLE 40MG VIAL 40 MG IV (08:26)
[2024-04-17] MEDS: SODIUM CHLORIDE 0.9% 10ML VIAL 10 ML IV (08:26)
[2024-04-17] MEDS: ENOXAPARIN 40MG/0.4ML SYRINGE 40 MG SUBCUT (08:26)
[2024-04-17] MEDS: ROPINIROLE 1MG TABLET 2 MG PO ×2 (08:26→20:50)
[2024-04-17] MEDS: DOXYCYCLINE HYCLATE 100 MG in 0.9 % SODIUM CHLORIDE 250 ML 166.667 MG IV ×2 (08:27→20:49)
[2024-04-17] MEDS: OSELTAMIVIR PHOSPHATE 6MG/ML ORAL SUSP 60ML 30 MG PO ×2 (08:27→20:49)
[2024-04-17 08:32] LABS: Basophils % 0.3 % (0.1-2.0); Eosinophils # 0.2 K/mm3 (0.0-0.4); Eosinophils % 1.4 % (0.1-12.0); Hematocrit 34.5 % (37.0-47.0); Hemoglobin 9.8 g/dL (12.2-16.2); Lymphocytes # 2.4 K/mm3 (0.7-4.5); Lymphocytes % 20.9 % (10-50); Mean Corpuscular HGB Conc 28.4 g/dL (31.8-35.4); Mean Corpuscular Hemoglobin 25.1 pg (27.0-31.2); Mean Corpuscular Volume 88.5 fl (81-99); Mean Platelet Volume 12.2 fl (7.4-10.4); Monocytes # 0.7 K/mm3 (0.1-1.0); Monocytes % 5.9 % (1.7-9.3); Neutrophils # 8.3 K/mm3 (1.8-7.8); Neutrophils % 70.6 % (37.0-80.0); Platelet Count 246 K/mm3 (142-424); Red Cell Distribution Width 15.9 % (11.5-17.5); White Blood Count 11.7 K/mm3 (4.8-10.8)
[2024-04-17 08:41] LABS: Chloride 105 mmol/L (98-107)
[2024-04-17 08:42] LABS: Albumin Level 3.3 g/dl (3.5-5.0); Potassium 3.4 mmoL/L (3.5-5.1); Sodium 143 mmol/L (136-145)
[2024-04-17 08:44] LABS: Alanine Aminotransferase 21 U/L (12-78); Albumin/Globulin Ratio 1.3 (1.1-1.8); Anion Gap 11.4 mEq/L (5-15); Aspartate Amino Transferase 49 U/L (14-36); Blood Urea Nitrogen 29 mg/dl (7-17); Carbon Dioxide 30 mmol/L (22.0-30.0); Creatinine Clearance Estimated 37 mL/min (50-200); Estimated Glomerular Filt Rate 79 ml/min (>60); GFR (African American) 96 ML/MIN (>60); Globulin 2.5 g/dL (1.3-3.2); Total Protein,Serum 5.8 g/dl (6.3-8.2)
[2024-04-17 08:45] LABS: Alkaline Phosphatase 84 U/L (38-126); Bilirubin,Total 0.3 mg/dl (0.2-1.3); Calcium 8.5 mg/dl (8.4-10.2); Glucose 88 mg/dl (74-100); Magnesium 1.7 mg/dl (1.6-2.3)
[2024-04-17] MEDS: MAGNESIUM SULFATE IN WATER 2 GM/50 ML PIGGYBACK IV ×2 (10:25→11:32)
[2024-04-17] MEDS: KCl 10mEq/100ml 100 ML 100 MEQ IV (13:11)
--- NOTE | 2024-04-17 14:12 | PC.NURSE ---
patient unable to tolerate IV potassium infusion with 0.9% NS concurrently. contacted MD and pharmacy, agreed to switch to oral liquid potassium.
[2024-04-17] MEDS: POTASSIUM CHLORIDE 20MEQ/15ML UDC 40 MEQ PO (14:25)
--- NOTE | 2024-04-17 15:34 | EXP.ACUTE.PN ---
Subjective *Date: 04/17/24 *Time: 15:34 Interval history: Patient appears comfortable this morning. Interactive but not as energetic as yesterday. Tolerating 5 L nasal cannula oxygen. Minimal cough. Tolerating small portions of her meals. Afebrile. Daughters at bedside. Medical Exam Vital signs and Labs for Last 24 Hours: Vital Signs Temp Pulse Pulse Resp BP Pulse Ox O2 Del Method 04/17/24 15:00 Nasal Cannula 04/17/24 13:00 Nasal Cannula 04/17/24 12:05 81 04/17/24 12:05 84 04/17/24 12:05 99 Nasal Cannula 04/17/24 12:00 89 04/17/24 12:00 97.5 F L 89 16 124/57 L 99 Nasal Cannula 04/17/24 11:00 Nasal Cannula 04/17/24 09:00 Nasal Cannula 04/17/24 08:00 95 H 04/17/24 08:00 98.7 F 91 H 18 124/62 95 Nasal Cannula 04/17/24 08:00 Nasal Cannula 04/17/24 06:50 Nasal Cannula 04/17/24 06:19 107 H 04/17/24 06:19 96 H 04/17/24 06:19 90 L Nasal Cannula 04/17/24 05:00 Nasal Cannula 04/17/24 04:00 85 04/17/24 04:00 97.9 F 88 18 115/61 94 L Nasal Cannula 04/17/24 03:00 Nasal Cannula 04/17/24 01:00 Nasal Cannula 04/17/24 00:06 93 H 04/17/24 00:05 83 04/17/24 00:00 98.1 F 100 H 18 111/55 L 93 L Nasal Cannula 04/17/24 00:00 96 H 04/16/24 23:00 Nasal Cannula 04/16/24 21:00 Nasal Cannula 04/16/24 20:00 92 H 04/16/24 20:00 93 L Nasal Cannula 04/16/24 19:58 Nasal Cannula 04/16/24 19:57 96 H 04/16/24 19:56 87 04/16/24 19:56 98.3 F 88 18 109/48 L 93 L Nasal Cannula 04/16/24 18:33 Nasal Cannula 04/16/24 17:00 Nasal Cannula 04/16/24 16:00 95 H 04/16/24 15:54 98.3 F 92 H 20 127/67 93 L Nasal Cannula O2 Flow Rate 04/17/24 15:00 04/17/24 13:00 04/17/24 12:05 04/17/24 12:05 04/17/24 12:05 5 04/17/24 12:00 04/17/24 12:00 5 04/17/24 11:00 04/17/24 09:00 04/17/24 08:00 04/17/24 08:00 04/17/24 08:00 5 04/17/24 06:50 5 04/17/24 06:19 04/17/24 06:19 04/17/24 06:19 5 04/17/24 05:00 5 04/17/24 04:00 04/17/24 04:00 5 04/17/24 03:00 5 04/17/24 01:00 2 04/17/24 00:06 04/17/24 00:05 04/17/24 00:00 5 04/17/24 00:00 04/16/24 23:00 2 04/16/24 21:00 04/16/24 20:00 04/16/24 20:00 5 04/16/24 19:58 5 04/16/24 19:57 04/16/24 19:56 04/16/24 19:56 5 04/16/24 18:33 04/16/24 17:00 2 04/16/24 16:00 04/16/24 15:54 2 Intake and Output 04/16/24 04/17/24 04/17/24 23:59 07:59 15:59 Intake Total 100 / 970 750 / 930 180 / 930 Output Total 200 / 200 0 / 200 Balance 100 / 920 550 / 730 180 / 730 Intake: Intake, Oral Amount 100 / 720 500 / 680 180 / 680 Intake, Total IV Amount 250 / 250 Doxycycline Hyclate 100 mg In 0 250 / 250 .9 % Sodium Chloride 250 ml @ 166.667 mls/hr IV Q12H [facility] Rx#: [id number] Output: Output, Urine Amount 200 / 200 0 / 200 Other: Number of Unmeasured Voids 0 Weight 60.101 kg Patient Weight 04/17/24 23:59 Weight 60.101 kg Laboratory Results - last 24 hr 04/16/24 16:18: POC Glucose 100 04/17/24 06:37: WBC 11.7 H, RBC 3.90 L, Hgb 9.8 L, Hct 34.5 L, MCV 88.5, MCH 25.1 L, MCHC 28.4 L, RDW 15.9, Plt Count 246, MPV 12.2 H, Neut % (Auto) 70.6, Lymph % (Auto) 20.9, [place] % (Auto) 5.9, Eos % (Auto) 1.4, Baso % (Auto) 0.3, Neut # (Auto) 8.3 H, Lymph # (Auto) 2.4, [place] # (Auto) 0.7, Eos # (Auto) 0.2, Baso # (Auto) 0.0, Sodium 143, Potassium 3.4 L, Chloride 105, Carbon Dioxide 30, Anion Gap 11.4, BUN 29 H D, Creatinine 0.70, Estimated Creat Clear 37, Estimated GFR 79, Est GFR ( Amer) 96, Glucose 88, Calcium 8.5, Magnesium 1.7 D, Total Bilirubin 0.3, AST 49 H, ALT 21, Alkaline Phosphatase 84, Total Protein 5.8 L, Albumin 3.3 L, Globulin 2.5, Albumin/Globulin Ratio 1.3 I & O for Labs for Last 24 Hours: Intake & Output 04/14/24 04/15/24 04/16/24 04/17/24 23:59 23:59 23:59 23:59 Intake Total 265 / 265 510 / 510 220 / 970 930 / 930 Output Total 850 / 1050 300 / 300 50 / 50 200 / 200 Balance -585 / -785 210 / 210 170 / 920 730 / 730 Weight 55.747 kg 55.346 kg 57.243 kg 60.101 kg Microbiology Reports for the Last 24 Hours: Microbiology 04/11/24 15:28 Blood Blood Culture - Final NO GROWTH AFTER 5 DAYS 04/11/24 15:39 Blood Blood Culture - Final NO GROWTH AFTER 5 DAYS Constitutional: Present mild distress, chronically ill appearing and cooperative Head: Present atraumatic and normocephalic ENT: Present normal exam Respiratory: Present accessory muscle use, rhonchi and crackles; Absent wheezes Comment:: Diminished on right side Cardiac: Present Tachycardia Comment:: Irregularly irregular GI: Present soft, tenderness (Mild right upper quadrant) and normal bowel sounds; Absent distention Extremities: Present normal inspection and full ROM Skin: Present intact; Absent erythema Neuro: Present Grossly Intact, alert, awake and moves all extremities Comment:: Oriented to self only, does not know where she is or why Assessment and Plan *Assessment and plan (1) Acute on chronic heart failure with preserved ejection fraction (HFpEF): Status: Acute Category: Medical Code(s): I50.33 - Acute on chronic diastolic (congestive) heart failure (2) Influenza A (H1N1): Status: Acute Category: Medical Code(s): J10.1 - Influenza due to other identified influenza virus with other respiratory manifestations (3) Pneumonia: Status: Acute Qualifiers: Pneumonia type: due to influenza A virus Qualified Code(s): J10.00 - Influenza due to other identified influenza virus with unspecified type of pneumonia Category: Medical Code(s): J18.9 - Pneumonia, unspecified organism (4) Acute hypoxic respiratory failure: Status: Acute Category: Medical Code(s): J96.01 - Acute respiratory failure with hypoxia (5) Hypercarbia: Status: Acute Category: Medical Code(s): R06.89 - Other abnormalities of breathing (6) UTI (urinary tract infection): Status: Acute Qualifiers: Hematuria presence: without hematuria Urinary tract infection type: acute cystitis Qualified Code(s): N30.00 - Acute cystitis without hematuria Category: Medical Code(s): N39.0 - Urinary tract infection, site not specified (7) Altered mental status, unspecified: Status: Acute Qualifiers: Altered mental status type: stupor Qualified Code(s): R40.1 - Stupor Category: Medical Code(s): R41.82 - Altered mental status, unspecified (8) Dementia: Status: Chronic Qualifiers: Dementia type: associated with other underlying disease Dementia behavioral disturbance: without behavioral disturbance Qualified Code(s): F02.80 - Dementia in other diseases classified elsewhere without behavioral disturbance Category: Medical Code(s): F03.90 - Unspecified dementia, unspecified severity, without behavioral disturbance, psychotic disturbance, mood disturbance, and anxiety Plan Kathy Osullivan is a 88-year-old female who presents from [place] [facility] with shortness of breath, acute metabolic encephalopathy and was admitted for acute hypoxic, hypercapnic respiratory failure secondary to COPD exacerbation, influenza A, multifocal pneumonia, HFpEF exacerbation. Continuing treatment for H1N1 flu, intermittent delirium after Tamiflu. Necessitating ICU level care. Tolerating nasal cannula oxygen. Showing some improvement. Baseline oxygen reportedly 2 to 3 L at her nursing facility. Tolerating increased p.o. intake. Anticipate discharge in the coming days. Problems addressed as follows: #Acute hypoxic, hypercapnic respiratory failure #Acute metabolic encephalopathy ? Goal sats greater 90%, currently on 5 L nasal cannula oxygen. ? Secondary to COPD exacerbation, influenza A, multifocal pneumonia, HFpEF exacerbation. See separate problems. #Sepsis #Multifocal pneumonia #UTI #Influenza A #Bibasilar pleural effusions ? Initial WBC 22.7, with tachycardia, tachypnea, hypoxia. UA grossly abnormal. ? continuing Tamiflu, Continue ceftriaxone and doxycycline pending sputum culture; day 7 for treatments. DuoNebs scheduled every 6 hours. - Continue percussion today, flutter valve. Initiate Mucomyst twice daily. -White count 11.7. Slight bump from yesterday. Hemoglobin 9.8. repeat CBC, CMP, magnesium ordered for the morning. - Kidney function stable with BUN 29, creatinine 0.7. Potassium 3.4, magnesium 1.7, replacing per protocol ? Follow-up sputum, urine, blood cultures, MRSA screen. #HFpEF exacerbation ? Initial BNP 3280 with volume overload. ? Holding Bumex today. Patient appears euvolemic. Negative at least 7 L since admission. ? echo with stable LV function. Grade 2 diastolic dysfunction. No plan for intervention at this time. #Acute COPD exacerbation ? DuoNebs every 6 hours, Pulmicort twice daily. ? Will continue home prednisone 10 mg daily to avoid withdrawal. #Anxiety/depression: continue home sertraline 75 mg daily. #Restless leg syndrome: continue home ropinirole. Will hold off on gabapentin 100 mg for now to reduce polypharmacy in advanced age. DNR/DNI DVT prophylaxis: Lovenox 40 mg
[2024-04-17 16:39] LABS: POC Glucose,Bedside 134 (70-110)
--- NOTE | 2024-04-17 17:13 | DIET.NUTRFU ---
Pt tolerating small amounts of meals per MD Progress note. Poor recorded PO intake. Pt diet being supplemented with whole milk at meals and a vanilla shake at dinner. Will consider other supplements and encourage PO intake. Will continue to monitor.
--- NOTE | 2024-04-17 17:27 | PC.NURSE ---
patient is alert to self. currently on 3LNC satting 100%. tolerating nectar thick fluids, not eating much only a few bites. non productive cough persists. turned q2 hrs. electrolyte protocol in place. takes PO meds crushed in applesauce. a fib and BBB on tele. lung sounds diminished. refused ACHS at 1130, glucose at 1630 was [address] PW in [address]. bed alarm on. call light within reach. no c/o pain or nausea. no further requests at this time.
[2024-04-17] MEDS: PANTOPRAZOLE 40MG TABLET 40 MG PO (20:50)
[2024-04-17] MEDS: GUAIFENESIN/DEXTROMETHORPHAN 200MG/20MG 10ML UDC 10 ML PO (20:50)
[2024-04-18] VITALS (9 sets, daily range): BP systolic 99–122; BP diastolic 46–67; PULSE 84–100; RESP 16–22; TEMP 36.3–37.2; O2SAT 90–97; BMI 26.0
[2024-04-18] MEDS: CEFTRIAXONE SODIUM 2 GM in 0.9 % SODIUM CHLORIDE 100 ML IV (01:58)
--- NOTE | 2024-04-18 03:50 | PC.NURSE ---
Pt is alert and oriented only to self. Pt has been on 3 liters per nc and 02 sat has remained above 90%. She has a wet sounding cough but unable to get pt to expectorate. Lung sounds diminished. Pt drinking adeq amounts throughout the night. She remains in a fib with BBB per telemetry. FSBS 107 at 9 pm, other VS WNL. She has slept on and off through the night
--- NOTE | 2024-04-18 06:00 | XR_ITS ---
PROCEDURE INFORMATION: Exam: XR Chest Exam date and time: 04/18/2024 5:50 AM Age: 88 years old Clinical indication: Other: Pnepneumonia TECHNIQUE: Imaging protocol: Radiologic exam of the chest. Views: 1 view. COMPARISON: CT CHEST WO CON 04/14/2024 12:43 PM FINDINGS: Lungs: Stable 2 somewhat improved consolidation in the right mid chest. Left lung is clear. Pleural spaces: Right-sided pleural effusion. Heart/Mediastinum: Unremarkable. No cardiomegaly. Bones/joints: Unremarkable. IMPRESSION: Stable to somewhat improved consolidation in the right mid chest. Right-sided pleural effusion. Left lung is clear.
[2024-04-18] MEDS: ACETYLCYSTEINE 20% 4ML VIAL 2 ML IH (06:29)
[2024-04-18] MEDS: IPRATROPIUM/ALBUTEROL 3 ML NEB IH (06:29)
[2024-04-18 07:29] LABS: Basophils % 0.2 % (0.1-2.0); Eosinophils # 0.2 K/mm3 (0.0-0.4); Eosinophils % 1.2 % (0.1-12.0); Hematocrit 32.7 % (37.0-47.0); Hemoglobin 9.8 g/dL (12.2-16.2); Lymphocytes # 2.1 K/mm3 (0.7-4.5); Mean Corpuscular Hemoglobin 26.1 pg (27.0-31.2); Mean Platelet Volume 11.6 fl (7.4-10.4); Monocytes # 0.7 K/mm3 (0.1-1.0); Monocytes % 5.5 % (1.7-9.3); Neutrophils # 9.8 K/mm3 (1.8-7.8); Platelet Count 252 K/mm3 (142-424); Red Blood Count 3.76 M/mm3 (4.20-5.40); Red Cell Distribution Width 15.9 % (11.5-17.5); White Blood Count 12.8 K/mm3 (4.8-10.8)
--- NOTE | 2024-04-18 07:34 | EXP.DC.SUM ---
General Admission date:: 04/11/24 Discharge date: 04/18/24 HPI HPI HPI: This long term patient, he began to have some difficulty breathing was transported on oxygen from the long term and an ambulance to the ER., .From report she was doing very well talking in the back of the ambulance at that point in time the patient made a sudden change for the worse became unresponsive respiratory distress.. Patient was brought into the emergency room in a condition with low oxygen saturations., Patient also being nonresponsive with a right-sided gaze with both eyes.. Emergency care was given. I was requested to come down to the emergency room also was seeing the patient with the ER provider. Lung sounds extremely decreased on the right. Chest x-ray done showing right lower half of the lung with infiltrate.. Urinalysis also was done which showed a significant UTI. Patient was treated with oxygen Vapotherm continuous nebulizer.. Antibiotics were started. ER provider ordered CT scan patient was taken to CT but due to her condition was only able to complete part of that was inconclusive show a cerebral bleed or rule it out.. Patient is still unstable but somewhat improved. Oxygen saturations now above 90 labs have come back showing she also has flu A. Due to the patient's present status not able to start Tamiflu p.o. Family members came to the emergency room. Our provider talked with them.. They were updated on the seriousness of their mother. I will place the patient in the ICU. Continue antibiotics at this time. Go to be very careful with any fluid given. As the patient appears to be very wet in her lungs. Despite the fact of needing probably sepsis protocol.. Patient is very fragile. and the family is aware of this. I have had direct conversation with the ER provider that were not able to give any anticoagulation now either for PE since we cannot rule out a bleed in the brain. For this reason we will do everything medically weekend to see if we can get her to improve and control this infection get rid of the sepsis to see if she does improve.. Family understands that if she was to become more we would possibly then just go to care and comfort measures as the patient is that sick Hospital Course Hospital Course Hospital Course: Kathy Osullivan is a 88-year-old female who presents from [facility] with shortness of breath, acute metabolic encephalopathy and was admitted for acute hypoxic, hypercapnic respiratory failure secondary to COPD exacerbation, influenza A, multifocal pneumonia, HFpEF exacerbation. Started on treatment for flu and pneumonia. Showed gradual improvement and able to wean from Vapotherm to nasal cannula. Weaned to 3 L nasal cannula and has been stable on her baseline oxygen for over 24 hours prior to discharge. Completed antibiotic and antiviral medications. Stable to discharge back to long term for further care. Tolerating p.o. intake. Problems addressed as follows: #Acute hypoxic, hypercapnic respiratory failure #Acute metabolic encephalopathy ? Goal sats greater 90%, currently on her baseline of 3 L nasal cannula oxygen. ? Secondary to COPD exacerbation, influenza A, multifocal pneumonia, HFpEF exacerbation. See separate problems. #Sepsis #Multifocal pneumonia #UTI #Influenza A #Bibasilar pleural effusions ? Initial WBC 22.7, with tachycardia, tachypnea, hypoxia. UA grossly abnormal. Started on Tamiflu and broad-spectrum antibiotics with ceftriaxone and doxycycline. Completed 8 days of therapy of both medications. Showed gradual improvement in her oxygen requirement. Initially on Vapotherm and able to wean to nasal cannula oxygen. Return to her baseline oxygen of 3 L. White count 11-12 for several days prior to discharge. Remained afebrile. Chest imaging showing improvement in consolidation and atelectasis. Recommend continuing flutter valve and incentive spirometry after returning back to nursing facility. No further medications indicated at this time for infection. Continue DuoNebs every 6 hours. Kidney function and electrolytes back to baseline. -Needs follow-up with pulmonology as an outpatient. #HFpEF exacerbation ? Initial BNP 3280 with volume overload. Started on Bumex due to effusion and volume overload. Negative at least 7 L during admission. echo with stable LV function. Grade 2 diastolic dysfunction. No plan for intervention at this time. Resume diuretic at discharge #Acute COPD exacerbation: DuoNebs every 6 hours. Recommend continuing steroids at discharge to avoid withdrawal, on chronic steroids. #Anxiety/depression: continue home sertraline 75 mg daily. #Restless leg syndrome: continue home ropinirole. Will hold off on gabapentin 100 mg for now to reduce polypharmacy in advanced age. Total time spent on discharge 36 minutes in counseling, documentation, chart review, and direct care with patient. Exam Data for Last 24 hours Vital signs and Labs for Last 24 Hours: Temp Pulse Resp BP Pulse Ox O2 Del Method O2 Flow Rate 97.4 F L 86 22 112/60 90 L Nasal Cannula 3 04/18/24 04:00 04/18/24 06:30 04/18/24 06:30 04/18/24 04:00 04/18/24 06:30 04/18/24 06:45 04/18/24 06:45 FiO2 40 04/16/24 07:10 Laboratory Results - last 24 hr 04/17/24 06:37: WBC 11.7 H, RBC 3.90 L, Hgb 9.8 L, Hct 34.5 L, MCV 88.5, MCH 25.1 L, MCHC 28.4 L, RDW 15.9, Plt Count 246, MPV 12.2 H, Neut % (Auto) 70.6, Lymph % (Auto) 20.9, Price % (Auto) 5.9, Eos % (Auto) 1.4, Baso % (Auto) 0.3, Neut # (Auto) 8.3 H, Lymph # (Auto) 2.4, Price # (Auto) 0.7, Eos # (Auto) 0.2, Baso # (Auto) 0.0, Sodium 143, Potassium 3.4 L, Chloride 105, Carbon Dioxide 30, Anion Gap 11.4, BUN 29 H D, Creatinine 0.70, Estimated Creat Clear 37, Estimated GFR 79, Est GFR ( Amer) 96, Glucose 88, Calcium 8.5, Magnesium 1.7 D, Total Bilirubin 0.3, AST 49 H, ALT 21, Alkaline Phosphatase 84, Total Protein 5.8 L, Albumin 3.3 L, Globulin 2.5, Albumin/Globulin Ratio 1.3 04/17/24 16:25: POC Glucose 134 H I & O for Last 24 hours: Intake & Output 04/15/24 04/16/24 04/17/24 04/18/24 23:59 23:59 23:59 23:59 Intake Total 510 / 510 220 / 970 1500 / 1850 350 / 350 Output Total 300 / 300 50 / 50 500 / 500 Balance 210 / 210 170 / 920 1000 / 1350 350 / 350 Weight 55.346 kg 57.243 kg 60.101 kg 60.101 kg Constitutional Constitutional: no acute distress, average body habitus, chronically ill appearing and cooperative *Routine HEENT Exam Head: Present normocephalic Eye: Present EOMI and PERRL ENT: Present mucous membranes moist *Routine Neck Exam Neck: Present supple; Absent lymphadenopathy *Routine Respiratory Exam Respiratory: Present CTA bilaterally, crackles (right lung field) and diminished air movement; Absent rhonchi or wheezes *Routine Cardiovascular Exam Cardiovascular: Present RRR *Routine Abdominal Exam Abdominal: Present soft and normoactive bowel sounds; Absent tenderness *Routine Rectal Exam Patient deferred: visual exam *Routine Exam Patient deferred: external exam *Routine Extremities Exam Extremities: Absent cyanosis, clubbing or edema *Routine Skin Exam Skin: Present warm; Absent rash *Routine Neurological Exam Neurological: Present alert and moving all extremities (right hand contracture, chronic); Absent altered mental status Comments: Oriented to self, baseline mentation Results Data Completed and Pending Labs on day of discharge: Labs from last 24 hours 04/17/24 04/17/24 16:25 06:37 WBC 11.7 H RBC 3.90 L Hgb 9.8 L Hct 34.5 L MCV 88.5 MCH 25.1 L MCHC 28.4 L RDW 15.9 Plt Count 246 MPV 12.2 H Neut % (Auto) 70.6 Lymph % (Auto) 20.9 Price % (Auto) 5.9 Eos % (Auto) 1.4 Baso % (Auto) 0.3 Neut # (Auto) 8.3 H Lymph # (Auto) 2.4 Price # (Auto) 0.7 Eos # (Auto) 0.2 Baso # (Auto) 0.0 Sodium 143 Potassium 3.4 L Chloride 105 Carbon Dioxide 30 Anion Gap 11.4 BUN 29 H D Creatinine 0.70 Estimated Creat Clear 37 Estimated GFR 79 Est GFR ( Amer) 96 Glucose 88 POC Glucose 134 H Calcium 8.5 Magnesium 1.7 D Total Bilirubin 0.3 AST 49 H ALT 21 Alkaline Phosphatase 84 Total Protein 5.8 L Albumin 3.3 L Globulin 2.5 Albumin/Globulin Ratio 1.3 DS: Diagnosis Discharge Diagnosis (1) Acute on chronic heart failure with preserved ejection fraction (HFpEF): Status: Acute Code(s): I50.33 - Acute on chronic diastolic (congestive) heart failure (2) Influenza A (H1N1): Status: Acute Code(s): J10.1 - Influenza due to other identified influenza virus with other respiratory manifestations (3) Pneumonia: Status: Acute Code(s): J18.9 - Pneumonia, unspecified organism Qualifiers: Pneumonia type: due to influenza A virus Qualified Code(s): J10.00 - Influenza due to other identified influenza virus with unspecified type of pneumonia (4) Acute hypoxic respiratory failure: Status: Acute Code(s): J96.01 - Acute respiratory failure with hypoxia (5) Hypercarbia: Status: Acute Code(s): R06.89 - Other abnormalities of breathing (6) UTI (urinary tract infection): Status: Acute Code(s): N39.0 - Urinary tract infection, site not specified Qualifiers: Hematuria presence: without hematuria Urinary tract infection type: acute cystitis Qualified Code(s): N30.00 - Acute cystitis without hematuria (7) Altered mental status, unspecified: Status: Acute Code(s): R41.82 - Altered mental status, unspecified Qualifiers: Altered mental status type: stupor Qualified Code(s): R40.1 - Stupor (8) Dementia: Status: Chronic Code(s): F03.90 - Unspecified dementia, unspecified severity, without behavioral disturbance, psychotic disturbance, mood disturbance, and anxiety Qualifiers: Dementia behavioral disturbance: without behavioral disturbance Dementia type: associated with other underlying disease Qualified Code(s): F02.80 - Dementia in other diseases classified elsewhere without behavioral disturbance Meds Home Medications and Allergies Home Medications ?Medication ?Instructions ?Recorded ?Confirmed ?Type bisacodyl 10 mg rectal suppository 10 mg MT DAILYP PRN Constipation 12/11/19 04/11/24 History docusate sodium 250 mg capsule 250 mg PO DAILY 12/11/19 04/11/24 History melatonin 3 mg capsule 3 mg PO HS 12/11/19 04/11/24 History ondansetron HCl 4 mg tablet 4 mg PO Q6HP PRN Nausea And 12/11/19 04/11/24 History (Zofran) Vomiting aspirin 81 mg chewable tablet 81 mg PO DAILY 07/20/21 04/11/24 History clopidogrel 75 mg tablet 75 mg PO DAILY 07/20/21 04/11/24 History sertraline 50 mg tablet 50 mg PO DAILY 07/20/21 04/11/24 History sodium chloride 0.65 % nasal spray 1 spray intranasal BID 02/27/23 04/11/24 History aerosol (Deep Sea Nasal) guaifenesin 100 mg/5 mL oral 200 mg PO Q6HP PRN Congestion 01/11/24 04/11/24 History liquid (Radha-Tussin) ropinirole 2 mg tablet 2 mg PO BID 01/11/24 04/11/24 History sertraline 25 mg tablet 25 mg PO DAILY 01/11/24 04/11/24 History benzonatate 100 mg capsule 100 mg PO TIDP PRN Cough 04/05/24 04/11/24 History gabapentin 100 mg capsule 100 mg PO BID #60 caps 04/06/24 04/11/24 Rx hydrocodone 5 mg-acetaminophen 325 1 tab PO BID PRN severe pain #60 04/18/24 04/11/24 Rx mg tablet tabs ipratropium 0.5 mg-albuterol 3 mg 3 ml inhalation Q6RT 30 days #180 04/18/24 Rx (2.5 mg base)/3 mL nebulization mL soln pantoprazole 40 mg tablet,delayed 40 mg PO DAILY 30 days #30 tabs 04/18/24 Rx release prednisone 10 mg tablet 5 mg (1/2 x 10 mg) PO DAILY 10 04/18/24 04/11/24 Rx days #0 tabs New Prescriptions to Start Prescriptions: ipratropium-albuterol Keo Tran pantoprazole Keo Tran Allergies Allergy/AdvReac Type Severity Reaction Status Date / Time alendronate sodium (From Allergy Unknown Verified 04/05/24 09:35 Fosamax) NSAIDS (Non-Steroidal Allergy Unknown Verified 04/05/24 09:35 Anti-Inflamma Penicillins Allergy Unknown Verified 04/05/24 09:35 Discharge Plan Disposition Patient Disposition: [facility] Condition: Fair Discharge Order Discharge Orders: Discharge Order (Routine); Ordered 04/18/24 Ordered By: Keo Tran Follow up Plan Follow up with: Shaina Lopez MD [Physician] - 05/06/24 11:20 am Robin Hay MD [Primary Care Provider] - Enter time for follow up Prescriptions/Medication Reconciliation: New ipratropium-albuterol 0.5 mg-3 mg(2.5 mg base)/3 mL Solution For Nebulization 3 ml inhalation Q6RT 30 Days Qty: 180 0RF pantoprazole 40 mg Tablet,Delayed Release (Dr/Ec) 40 mg PO DAILY 30 Days Qty: 30 0RF Continued bisacodyl 10 mg suppository 10 mg RC DAILYP PRN (Reason: Constipation) ondansetron HCl [Zofran] 4 mg tablet 4 mg PO Q6HP PRN (Reason: Nausea And Vomiting) docusate sodium 250 mg capsule 250 mg PO DAILY melatonin 3 mg capsule 3 mg PO HS benzonatate 100 mg capsule 100 mg PO TIDP PRN (Reason: Cough) Deep Sea Nasal 0.65 % aerosol,spray 1 spray intranasal BID gabapentin 100 mg capsule 100 mg PO BID Qty: 60 5RF ropinirole 2 mg tablet 2 mg PO BID sertraline 25 mg tablet 25 mg PO DAILY Rx Instructions: Give with 50mg tablet to make 75mg dose guaifenesin [Radha-Tussin] 100 mg/5 mL Liquid 200 mg PO Q6HP PRN (Reason: Congestion) clopidogrel 75 MG tablet 75 mg PO DAILY aspirin 81 MG tablet,chewable 81 mg PO DAILY sertraline 50 MG tablet 50 mg PO DAILY Rx Instructions: Give with 25mg tablet to make 75mg dose Changed prednisone 10 mg Tablet 5 mg PO DAILY 10 Days Qty: 0 0RF hydrocodone-acetaminophen 5-325 mg tablet 1 tab PO BID PRN (Reason: severe pain) Qty: 60 0RF Problem Reconciliation Problems Reviewed?: Yes Patient Discharge Instructions ACTIVITY: Continue current activity DIET: continue same diet Patient Instructions: DI for Heart Failure, DI for Urinary Tract Infection (UTI), DI for H1N1 Influenza -- Adult, DI for Respiratory Failure, Catheter-Associated Urinary Tract Infection Print Language: Vietnamese Providers Primary Care Provider: Robin Hay Admit Provider: Hermann Segura Attending Provider: Hermann Segura
[2024-04-18 07:53] LABS: Chloride 108 mmol/L (98-107); Sodium 141 mmol/L (136-145)
[2024-04-18 07:54] LABS: Potassium 3.9 mmoL/L (3.5-5.1)
[2024-04-18 07:56] LABS: Alanine Aminotransferase 20 U/L (12-78); Albumin/Globulin Ratio 1.2 (1.1-1.8); Alkaline Phosphatase 81 U/L (38-126); Anion Gap 9.9 mEq/L (5-15); Aspartate Amino Transferase 45 U/L (14-36); Bilirubin,Total 0.3 mg/dl (0.2-1.3); Blood Urea Nitrogen 21 mg/dl (7-17); Calcium 8.3 mg/dl (8.4-10.2); Carbon Dioxide 27 mmol/L (22.0-30.0); Creatinine Clearance Estimated 37 mL/min (50-200); Estimated Glomerular Filt Rate 94 ml/min (>60); GFR (African American) 114 ML/MIN (>60); Globulin 2.5 g/dL (1.3-3.2); Glucose 93 mg/dl (74-100); Magnesium 2.3 mg/dl (1.6-2.3); Total Protein,Serum 5.5 g/dl (6.3-8.2)
[2024-04-18] MEDS: ROPINIROLE 1MG TABLET 2 MG PO (08:38)
[2024-04-18] MEDS: ENOXAPARIN 40MG/0.4ML SYRINGE 40 MG SUBCUT (08:38)
[2024-04-18] MEDS: SERTRALINE 50MG TABLET 75 MG PO (08:38)
[2024-04-18] MEDS: GUAIFENESIN/DEXTROMETHORPHAN 200MG/20MG 10ML UDC 10 ML PO (08:39)
[2024-04-18] MEDS: PANTOPRAZOLE 40MG TABLET 40 MG PO (08:39)
[2024-04-18] MEDS: DOXYCYCLINE HYCLATE 100 MG in 0.9 % SODIUM CHLORIDE 250 ML 166.667 MG IV (08:39)
[2024-04-18] MEDS: OSELTAMIVIR PHOSPHATE 6MG/ML ORAL SUSP 60ML 30 MG PO (08:42)
--- NOTE | 2024-04-18 09:45 | P.PN_ITS ---
Subjective *Date: 04/18/24 *Time: 11:15 Interval history: No acute respiratory vents over the weekend. Patient denies any new respiratory complaints Pulmonology Exam Inpatient Vital signs and Labs for Last 24 Hours: Temp Pulse Resp BP Pulse Ox O2 Del Method O2 Flow Rate 98.1 F 96 H 16 99/47 L 90 L Nasal Cannula 3 04/18/24 08:00 04/18/24 08:00 04/18/24 08:00 04/18/24 08:00 04/18/24 08:00 04/18/24 08:00 04/18/24 08:00 FiO2 40 04/16/24 07:10 Laboratory Results - last 24 hr 04/17/24 16:25: POC Glucose 134 H 04/18/24 06:44: WBC 12.8 H, RBC 3.76 L, Hgb 9.8 L, Hct 32.7 L, MCV 87.0, MCH 26.1 L, MCHC 30.0 L, RDW 15.9, Plt Count 252, MPV 11.6 H, Neut % (Auto) 76.0, Lymph % (Auto) 16.0, [place] % (Auto) 5.5, Eos % (Auto) 1.2, Baso % (Auto) 0.2, Neut # (Auto) 9.8 H, Lymph # (Auto) 2.1, [place] # (Auto) 0.7, Eos # (Auto) 0.2, Baso # (Auto) 0.0, Sodium 141, Potassium 3.9, Chloride 108 H, Carbon Dioxide 27, Anion Gap 9.9, BUN 21 H D, Creatinine 0.60, Estimated Creat Clear 37, Estimated GFR 94, Est GFR ( Amer) 114, Glucose 93, Calcium 8.3 L, Magnesium 2.3 D, Total Bilirubin 0.3, AST 45 H, ALT 20, Alkaline Phosphatase 81, Total Protein 5.5 L, Albumin 3.0 L, Globulin 2.5, Albumin/Globulin Ratio 1.2 Temp Pulse Resp BP Pulse Ox O2 Del Method O2 Flow Rate 98.6 F 94 H 18 129/59 L 99 Vapotherm 25 04/11/24 07:59 04/11/24 07:59 04/11/24 07:59 04/11/24 07:59 04/11/24 09:41 04/11/24 09:41 04/11/24 09:41 FiO2 80 04/11/24 09:41 Laboratory Results - last 24 hr 04/11/24 01:30: Sodium 139, Potassium 4.5, Chloride 104, Carbon Dioxide 22, Anion Gap 17.5 H, BUN 20 H, Creatinine 0.70, Estimated Creat Clear 47, Estimated GFR 79, Est GFR ( Amer) 96, Glucose 303 H, Calcium 8.5, Total Bilirubin 0.3, AST 83 H, ALT 42, Alkaline Phosphatase 125, Troponin I 0.05 H, NT-Pro-B Natriuret Pep 3280 H, Total Protein 6.1 L, Albumin 3.7, Globulin 2.4, Albumi n/Globulin Ratio 1.5, Triglycerides 146, Cholesterol 168, LDL Cholesterol Direct 102.53, VLDL Cholesterol 29, HDL Cholesterol 35 L, Cholesterol/HDL Ratio 4.8 H, Procalcitonin 0.063, Plasma/Serum Alcohol < 10 04/11/24 01:34: VBG pH 7.09 L, VBG pCO2 63.4 H, VBG pO2 70.0 H, VBG HCO3 18.6 L, VBG Total CO2 20.6 L, VBG O2 Saturation 87.4 H, VBG Base Excess -11.3 L, VBG Lactic Acid 5.5 H 04/11/24 01:35: HCV Ab GRACIA w/Rflx PCR Qn Negative, HIV Ag/Ab Combo Qual Negative 04/11/24 01:50: WBC 22.7 H*, RBC 4.51, Hgb 11.6 L, Hct 41.9, MCV 92.9, MCH 25.7 L, MCHC 27.7 L, RDW 15.9, Plt Count 241, MPV 11.1 H, Neut % (Auto) 34.5 L, Lymph % (Auto) 55.7 H, [place] % (Auto) 7.9, Eos % (Auto) 0.8, Baso % (Auto) 0.3, Neut # (Auto) 7.8, Lymph # (Auto) 12.6 H, [place] # (Auto) 1.8 H, Eos # (Auto) 0.2, Baso # (Auto) 0.1, Total Counted 100, Neutrophils % (Manual) 32 L, Band Neutrophils % 7.0, Lymphocytes % (Manual) 50, Monocytes % (Manual) 11 H, Platelet Estimate Normal, RBC Morphology Normal, PT 10.3, INR 0.93, APTT 27.0 04/11/24 02:26: Urine Color Cassandra, Urine Appearance Slightly cloudy, Urine pH 5.5, Ur Specific [place] 1.025, Urine Protein 1+ A, Urine Glucose (UA) Negative, Urine Ketones Negative, Urine Blood 3+ A, Urine Nitrate Negative, Urine Bilirubin Negative, Urine Urobilinogen 0.2, Ur Leukocyte Esterase 2+ A, Urine RBC Tntc, Urine WBC 50-100, Ur Squamous Epith Cells 10-20, Amorphous Sediment 1+, Urine Bacteria 1+, Urine Opiates Screen Positive H, Urine Methadone Screen Negative, Ur Barbituates Screen Negative, Ur Phencyclidine Scrn Negative, Ur Amphetamines Screen Negative, U Benzodiazepines Scrn Negative, Urine Cocaine Screen Negative, U Marijuana (THC) Screen Negative, Chlamy pneumoniae PCR Not detected, Adenovirus (PCR) Not detected, B. pertussis DNA (PCR) Not detected, Coronavirus OC43 (PCR) Not detected, Coronavirus HKU1 (PCR) Not detected, Coronavirus 229E (PCR) Not detected, SARS-CoV-2 (PCR) Not detected, Coronavirus NL63 (PCR) Not detected, Human Metapneumovir PCR Not detected, Influenza A (H1) PCR Not detected, Influ A (H1N1/09) PCR Detected A, Influenza A (H3) PCR Not detected, Influenza Type A (PCR) Not detected, Influenza Type B (PCR) Not detected, M. pneumoniae (PCR) Not detected, Parainfluenza 1 (PCR) Not detected, Parainfluenza 2 (PCR) Not detected, Parainfluenza 3 (PCR) Not detected, Parainfluenza 4 (PCR) Not detected, RSV (PCR) Not detected, Entero/Rhino (PCR) Not detected 04/11/24 05:39: POC Glucose 190 H 04/11/24 06:00: VBG pH 7.34, VBG pCO2 39.4, VBG pO2 93.9 H, VBG HCO3 20.8 L, VBG Total CO2 22.0 L, VBG O2 Saturation 97.0 H, VBG Base Excess -5.0 L, VBG Lactic Acid 3.3 H 04/11/24 06:11: WBC 12.6 H D, RBC 4.16 L, Hgb 10.8 L, Hct 37.9, MCV 91.1, MCH 26.0 L, MCHC 28.5 L, RDW 15.9, Plt Count 179 D, MPV 10.5 H, Neut % (Auto) 88.6 H, Lymph % (Auto) 3.9 L, [place] % (Auto) 6.8, Eos % (Auto) 0.0 L, Baso % (Auto) 0 .1, Neut # (Auto) 11.2 H, Lymph # (Auto) 0.5 L, [place] # (Auto) 0.9, Eos # (Auto) 0.0, Baso # (Auto) 0.0, Sodium 141, Potassium 3.9, Chloride 101, Carbon Dioxide 28, Anion Gap 15.9 H, BUN 26 H D, Creatinine 0.80, Estimated Creat Clear 39, Estimated GFR 68, Est GFR ( Amer) 82, Glucose 161 H D, Calcium 8.3 L, Magnesium 1.5 L, Total Bilirubin 0.3, AST 170 H D, ALT 88 H D, Alkaline Phosphatase 158 H, Total Protein 6.3, Albumin 3.7, Globulin 2.6, Albumin/Globulin Ratio 1.4 04/11/24 07:48: Lactate 3.0 H, Troponin I 0.18 H I & O for Labs for Last 24 Hours: Intake & Output 04/15/24 04/16/24 04/17/24 04/18/24 23:59 23:59 23:59 23:59 Intake Total 510 / 510 220 / 970 1500 / 1850 350 / 350 Output Total 300 / 300 50 / 50 500 / 500 0 / 0 Balance 210 / 210 170 / 920 1000 / 1350 350 / 350 Weight 122 lb 0.273 oz 126 lb 3.2 oz 132 lb 8 oz 132 lb 8 oz Intake & Output 04/08/24 04/09/24 04/10/24 04/11/24 23:59 23:59 23:59 23:59 Output Total 750 / 750 Balance -750 / -750 Weight 140 lb 4.8 oz Constitutional: Present moderate distress Head: Present normocephalic and atraumatic ENT: Present normal exam, normal oropharynx and mucous membranes moist Neck: Present normal inspection and full ROM Respiratory: Present respiratory distress, rhonchi and able to speak in complete sentences; Absent stridor or wheezes Cardiac: Present S1/S2, Tachycardia and radial pulses present GI: Present soft and distention; Absent tenderness or guarding Rectal (female): Present deferred (female): Present deferred Skin: Present intact; Absent cyanosis or jaundice Neuro: Present alert and awake; Absent oriented x 3 Extremities: Present normal inspection; Absent clubbing or cyanosis Assessment and Plan *Assessment and plan (1) Acute hypoxic respiratory failure: Status: Acute Category: Medical Code(s): J96.01 - Acute respiratory failure with hypoxia (2) Pneumonia: Status: Acute Qualifiers: Pneumonia type: due to influenza A virus Qualified Code(s): J10.00 - Influenza due to other identified influenza virus with unspecified type of pneumonia Category: Medical Code(s): J18.9 - Pneumonia, unspecified organism (3) Influenza A (H1N1): Status: Acute Category: Medical Code(s): J10.1 - Influenza due to other identified influenza virus with other respiratory manifestations (4) Collapse, lung: Status: Acute Category: Medical Code(s): J98.19 - Other pulmonary collapse Plan Ms. Osullivan is a 88-year-old history of COPD was brought to the ER from retirement complaining worsening respiratory distress and pulmonary was called for further evaluation and management. Patient opening eyes and responding to painful stimuli. Not responding appropriately verbal commands. Much of the history obtained from chart review. Progressive worsening respiratory distress and worsening lower extremity swelling. CTA on admission, no evidence of pulmonary embolism elevated right hemidiaphragm, bilateral lower lobe consolidative changes right greater than left along with bilateral effusions right greater than left Neutrophilic predominant leukocytosis. Influenza A positive on PCR. ABG upon admission severe hypercarbic respiratory failure, improving with a pH of 7.34 and a pCO2 of 39.4. Receiving ceftriaxone and doxycycline. Repeat CT chest prominent right consolidative/atelectatic changes with near complete occlusion of the right mainstem bronchus concern for mucous plugging. Significant worsening of the noted effusion noted. Will hold off on performing thoracentesis at this point of time. Interval update: Improving oxygen garments currently on nasal cannula 3 L. Stable leukocytosis. Chest x-ray from this morning reviewed, improving atelectasis. Continued show right middle lobe infiltrate. Cultures no growth so far. Completed 8-day course of antibiotics and Tamiflu. Plan:- -Incentive spirometry and flutter valve -Continue nasal cannula oxygen supplementation to maintain O2 saturation goal of 90% currently on 2 to 3 L which is her home baseline -DuoNebs every 6 hours on a scheduled basis
[2024-04-18 11:05] LABS: POC Glucose,Bedside 132 (70-110)
== END 2024-04-18 12:32 | DRG 193 ==
LOC: ER 01:34 → ICU 04:18 → 2ND 04-16 13:05
PROVIDERS: Internal Medicine Adolescent Medicine; Nurse Practitioner Family; Admitting Provider Student in an Organized Health Care Education/Training Program; Emergency Provider Emergency Medicine; PCP Family Medicine; Visit Provider Student in an Organized Health Care Education/Training Program
DX: J10.00 Influenza due to other identified influenza virus with unspecified type of pneumonia (principal); G93.41 Metabolic encephalopathy; I50.33 Acute on chronic diastolic (congestive) heart failure; J96.01 Acute respiratory failure with hypoxia; R65.21 Severe sepsis with septic shock; N39.0 Urinary tract infection, site not specified; I48.20 Chronic atrial fibrillation, unspecified; J44.1 Chronic obstructive pulmonary disease with (acute) exacerbation
CPT/HCPCS: 36415; 70450; 70496; 70498; 71045; 71250; 71275; 74177; 80053; 80061; 80307; 80320; 81001; 82272; 82803; 82962; 83605; 83735; 83880; 84145; 84484; 85007; 85014; 85018; 85025; 85610; 85730; 86803; 87040; 87081; 87086; 87389; 87633; 93005; 93306; 94640; 94667; 94668; 94761; 99291; 99292; G0328; J0696; J1160; J1650; J1939; J1940; J2270; J2405; J2919; J3372; J3475; J3480; J7030; J7613; J7620; Q9967; S0028

== ENCOUNTER 2024-04-27 13:41 | Outpatient (CLI) | payer MEDICARE, MEDICAID, SELFPAY ==
--- NOTE | 2024-04-27 13:44 | XR_ITS ---
FINAL REPORT CLINICAL HISTORY: PNM COMPARISON: 04/18/2024 FINDINGS: 2 views of the chest were obtained . The heart is mildly enlarged. The mediastinum is within normal limits. There is elevation of the right hemidiaphragm. Bibasilar atelectasis is noted. There is no pneumothorax. Osseous structures are unremarkable. IMPRESSION: Bibasilar atelectasis. Reviewed, Interpreted and Dictated by Samir Vance MD Transcribed by Amy Gonsales Authenticated and [facility]
== END 2024-04-27 23:59 | disposition home or self-care (01) ==
PROVIDERS: Visit Provider Internal Medicine Pulmonary Disease
DX: R06.02 Shortness of breath (principal)
CPT/HCPCS: 71046

== ENCOUNTER 2024-05-02 13:18 | Day surgery (SDC) | payer MEDICARE, MEDICAID, SELFPAY ==
[2024-05-02] VITALS (8 sets, daily range): BP systolic 107–156; BP diastolic 66–94; PULSE 79–83; RESP 14–22; TEMP 36.1–36.6; O2SAT 94–100; BMI 25.4
--- NOTE | 2024-05-02 14:15 | P.PNANES_ITS ---
[facility] Disclaimer: The information contained in this section may have been updated after the patient was seen, as this information can be updated by other users. Medical History (Updated 04/29/24 @ 14:05 by Shaina Lopez MD) Elevated diaphragm Chronic respiratory failure with hypoxia Collapse, lung Depression Closed head injury Choledocholithiasis Diverticulitis UTI (urinary tract infection) Arthralgia of elbow, left Fall Elevated LFTs CHERRY (acute kidney injury) Thrombocytopenia Anemia Pancreatitis Renal insufficiency Bacterial infection due to Proteus mirabilis Respiratory failure with hypercapnia Obesity (BMI 30-39.9) Elevated troponin IVCD (intraventricular conduction defect) Severe sepsis with acute organ dysfunction Cough with hemoptysis COPD with acute exacerbation Respiratory failure with hypercapnia Chest pain Anemia Elevated troponin Healthcare-associated pneumonia Vomiting Scalp laceration Fall History of VT (myocardial infarction) Age-related physical debility Malaise Overactive bladder Rheumatic arteritis Gastroesophageal reflux disease Heart failure Chronic insomnia Anxiety Major depression in partial remission Dementia Hyperlipidemia Hypertension Surgical History Surgical history unknown Family History Other No significant family history Social History Smoking Status: Never smoker alcohol intake: never substance use type: denies use and other current occupational status: retired Travel in the last 8 weeks: None housing: senior living [facility] Anesthesia Checklist Patient Identification Patient Identification: Arm Band Structural Data Admitted From: Home Planned Operative Procedure/s: ERCP Consent for Planned Operative Procedure(s) Verified: Yes Verified Documents: Surgical Consent and History and Physical NPO Status Verified Time NPO: 00:00 Additional verifications Anesthesia Reactions: No Airway Assessment Mallampati Score:: Class II C-Spine Mobility Assessed: Yes TMJ Mobility Assessed: Yes Dentition: Dentures-good fit (removed) Neurological Assessment Level of Consciousness: Awake and Follows Commands Anesthesia Plan Anesthesia Risk discussed: Yes Anesthesia Plan: Verified ASA Class: IV Anesthesia Type: General Preoperative Comments Pre-Operative Comments: Pt cleared for ERCP by both Pulmonology and Cardiology. Recent hospitalization d/t respiratory distress, lung collapse. 02 Saturations on room air 84%. Had lengthy discussion with Dr. Perez and patient's daughter. Pt is high risk for anesthesia complications. Discussed possibility of remaining intubated post procedure d/t pulmonary comorbidities. Dr. Perez and Daughter had discussion and all are in agreeance to proceed today.
--- NOTE | 2024-05-02 14:19 | EXP.HP ---
History of Present Illness *Admission Date: 05/02/24 *Reason for visit:: History of bile duct stent *History of present illness: Mrs. Osullivan is an 88-year-old female who is here for ERCP with biliary stent removal and clearance of biliary system. The examination is deemed medically necessary for ERCP. The patient has been seen, interviewed and examined prior to the procedure by both myself and the anesthesia provider. [facility] Disclaimer: The information contained in this section may have been updated after the patient was seen, as this information can be updated by other users. Medical History (Updated 05/02/24 @ 14:21 by Mode Perez II, MD) Elevated diaphragm Chronic respiratory failure with hypoxia Collapse, lung Depression Closed head injury Choledocholithiasis Diverticulitis UTI (urinary tract infection) Arthralgia of elbow, left Fall Elevated LFTs CHERRY (acute kidney injury) Thrombocytopenia Anemia Pancreatitis Renal insufficiency Bacterial infection due to Proteus mirabilis Respiratory failure with hypercapnia Obesity (BMI 30-39.9) Elevated troponin IVCD (intraventricular conduction defect) Severe sepsis with acute organ dysfunction Cough with hemoptysis COPD with acute exacerbation Respiratory failure with hypercapnia Chest pain Anemia Elevated troponin Healthcare-associated pneumonia Vomiting Scalp laceration Fall History of RI (myocardial infarction) Age-related physical debility Malaise Overactive bladder Rheumatic arteritis Gastroesophageal reflux disease Heart failure Chronic insomnia Anxiety Major depression in partial remission Dementia Hyperlipidemia Hypertension Surgical History (Updated 05/02/24 @ 14:21 by Mode Perez II, MD) Surgical history unknown Family History Other No significant family history Social History (Updated 05/02/24 @ 14:17 by Esther Haq RN) Smoking Status: Never smoker alcohol intake: never substance use type: denies use and other current occupational status: retired Travel in the last 8 weeks: None housing: [facility] Have you lived/traveled outside [place] in past 30 days?: No Contact w/someone who lives/traveled outside US past 30 days?: No Exposure to someone with infectious disease in past 14 days?: No Do you have a fever (greater than 100.4 F or 38 C)?: No Have you tested positive for COVID-19: No Exposed to someone with COVID-19 in past 14 days?: No Do you have a sore throat?: No Do you have a cough?: No Do you have any weakness?: No Do you have any diarrhea?: No Are you experiencing any unusual bleeding?: No Do you have any muscle aches/pain?: No Do you have any abdominal pain?: No Are you experiencing loss of taste or smell?: No Other Medical History Have you received the Flu Vaccine for this season: No Have you received the Pneumonia Vaccine: Yes (07/11/19) Review of Systems Review of Systems Review of systems (narrative): Negative *Cardiovascular Comments: Negative *Gastrointestinal Comments: Negative *Genitourinary Comments: Negative *Musculoskeletal Comments: Negative *Neurologic Comments: Negative Meds Home Medications and Allergies Home Medications ?Medication ?Instructions ?Recorded ?Confirmed ?Type bisacodyl 10 mg rectal suppository 10 mg MA DAILYP PRN Constipation 12/11/19 04/27/24 History docusate sodium 250 mg capsule 250 mg PO DAILY 12/11/19 04/27/24 History melatonin 3 mg capsule 3 mg PO HS 12/11/19 04/27/24 History ondansetron HCl 4 mg tablet 4 mg PO Q6HP PRN Nausea And 12/11/19 04/27/24 History (Zofran) Vomiting aspirin 81 mg chewable tablet 81 mg PO DAILY 07/20/21 04/27/24 History clopidogrel 75 mg tablet 75 mg PO DAILY 07/20/21 04/27/24 History sertraline 50 mg tablet 50 mg PO DAILY 07/20/21 04/25/24 History sodium chloride 0.65 % nasal spray 1 spray intranasal BID 02/27/23 04/27/24 History aerosol (Deep Sea Nasal) guaifenesin 100 mg/5 mL oral 200 mg PO Q6HP PRN Congestion 01/11/24 04/27/24 History liquid (Radha-Tussin) ropinirole 2 mg tablet 2 mg PO BID 01/11/24 04/27/24 History sertraline 25 mg tablet 25 mg PO DAILY 01/11/24 04/27/24 History benzonatate 100 mg capsule 100 mg PO TIDP PRN Cough 04/05/24 04/27/24 History gabapentin 100 mg capsule 100 mg PO BID #60 caps 04/06/24 04/27/24 Rx hydrocodone 5 mg-acetaminophen 325 1 tab PO BID PRN severe pain #60 04/18/24 04/27/24 Rx mg tablet tabs ipratropium 0.5 mg-albuterol 3 mg 3 ml inhalation Q6RT 30 days #180 04/18/24 04/25/24 Rx (2.5 mg base)/3 mL nebulization mL soln pantoprazole 40 mg tablet,delayed 40 mg PO DAILY 30 days #30 tabs 04/18/24 04/27/24 Rx release New Prescriptions to Start Prescriptions: Allergies Allergy/AdvReac Type Severity Reaction Status Date / Time alendronate sodium (From Allergy Unknown Unknown Verified 05/02/24 13:58 Fosamax) allergy reaction NSAIDS (Non-Steroidal Allergy Unknown Unknown Verified 05/02/24 13:58 Anti-Inflamma allergy reaction Penicillins Allergy Unknown Unknown Verified 05/02/24 13:58 allergy reaction Exam *Routine HEENT Exam Head: Present normocephalic Eye: Present EOMI and PERRL ENT: Present mucous membranes moist *Routine Neck Exam Neck: Present supple *Routine Respiratory Exam Respiratory: Present CTA bilaterally *Routine Cardiovascular Exam Cardiovascular: Present RRR *Routine Abdominal Exam Abdominal: Present soft and normoactive bowel sounds; Absent tenderness *Routine Rectal Exam Rectal:: deferred *Routine Genitalia Exam Genitalia:: deferred *Routine Extremities Exam Extremities: Absent cyanosis, clubbing or edema *Routine Skin Exam Skin: Present warm; Absent rash *Routine Neurological Exam Neurological: Present alert and oriented X3 Assessment and Plan *Assessment and plan (1) History of biliary duct stent placement: Status: Acute Category: Surgical Code(s): Z98.890 - Other specified postprocedural states (2) Choledocholithiasis: Status: Acute Category: Medical Code(s): K80.50 - Calculus of bile duct without cholangitis or cholecystitis without obstruction Plan A/P: 1. History of bile duct stent with prior history of choledocholithiasis is the preprocedural diagnosis. The patient will be anesthetized/sedated using MAC sedation. The patient has been seen and examined. Cardiac and lung assessment prior to the examination is stable. Proceed with planned ERCP
--- NOTE | 2024-05-02 14:22 | HMH.PROCNOTE ---
[facility] Procedure Note Date: 05/02/24 Time: 15:36 Procedure Note:: ERCP procedure Report: Endoscopic retrograde cholangiopancreatography with stent removal, sphincteroplasty (TTS balloon dilation), balloon and basket extraction and SEMS nitinol biliary stent placement (10 mm diameter/60 mm length) Endoscopist: Mode Perez II, MD Referring Physician: Robin Hay MD Date of Procedure: May 02, 2024 Equipment: Olympus 180 side viewing endoscope duodenoscope Sedation: MAC sedation Indication: Mrs. Osullivan is an 88-year-old female with choledocholithiasis and partial bile duct obstruction. She underwent ERCP on 01/13/2024. At that time, I did do biliary sphincterotomy with placement of a 10 Tajik/7 cm biliary stent. We did clear multiple pigmented stones from the biliary system. There was no evidence of cholangitis. The patient had significant improvement of her liver chemistries and has done well. She has been recently admitted with pulmonary failure and has been in the ICU. Her most recent liver chemistries were AST 45, ALT 20 and alkaline phosphatase 81. Her total bilirubin was 0.3. This is in contrast to her liver chemistries prior to ERCP in December when her AST greater than 1500, ALT 813 and alkaline phosphatase were 318 and her total bilirubin was 1.5. She has no present abdominal complaints. ERCP today is performed to remove biliary stent and provide complete clearance of the biliary system. Procedure: Prior to the procedure, a history and physical exam was performed, and patient's medications and allergies were reviewed. The risks, benefits and alternatives of the sedation and procedure were discussed with the patient. All questions were answered and informed consent was obtained. The patient was brought to the fluoroscopic radiology room. Patient identification and proposed procedure were verified by the physician and the nurse. The patient was placed in a swimmer's position between left lateral decubitus and prone position and the scope was passed under direct vision. Throughout the procedure, the patient's blood pressure, pulse, and oxygen saturations were monitored continuously. The ERCP was accomplished without difficulty. The patient tolerated the procedure well. Findings: The duodenoscope was passed directly into the upper esophagus and advanced to the second portion of the duodenum. The biliary stent was identified and grasped with a snare and removed per oral in a retrograde fashion. Next, the duodena scope was advanced to the second portion of the duodenum once again. The common bile duct was selectively cannulated. There were still multiple filling defects within the common bile duct with a dilated biliary system at 12 mm. Initially, sphincteroplasty was performed with a TTS hydrostatic balloon. The ampulla was dilated to 10 mm with a TTS hydrostatic balloon. Next, a 10 to 12 mm sweeping balloon was utilized and there were at least 4 pigmented stones removed with a sweeping balloon. Because some of the stones became wedged at the lower CBD/ampulla, a 2 cm basket was placed into the biliary system and swept with fragmented debris. 1 stone was captured but could not be pulled through the ampulla so this was crushed with the basket. After crushing the stone, the balloon was then utilized to sweep the biliary system 2 or 3 more times but there was still some impaction of fragmented stony debris at the ampulla. Because of the large small volume of stones and debris, I did feel it best to once again place a larger biliary SEMS (self-expandable metal stent which was deployed across the ampulla and was Nitinol metal measuring 10 mm diameter and 60 mm length. After deployment of the larger stent, the procedure was completed. The pancreatic duct was not cannulated intentionally. Impression: 1. Large volume choledocholithiasis status post partial/near complete biliary clearance with some impacted stone at ampulla status post larger nitinol biliary stent placement (10 mm diameter/60 mm length) Plan: I will discuss the findings with the patient and family. I would leave the nitinol metal stent in for 3 to 4 months prior to removal and then plan complete clearance of the biliary system with balloon/basket extraction.
--- NOTE | 2024-05-02 15:54 | EXP.ANES.I ---
[facility] Anesthesia Record Part I Anesthesia Record I Intake, IV Amount: 150 Hydration: Adequate Estimated blood loss (mL): 0 Urine output (mL): 0 Blood Products used (#): none Blood Pressure: 133/66 SaO2: 100 Pulse Rate: 80 Airway Patency: Patent Respiratory Rate: 14 Temperature: 97 F Patient is:: Drowsy and Stable Stable to PACU at:: 15:45
--- NOTE | 2024-05-02 17:10 | FL_ITS ---
FINAL REPORT CLINICAL HISTORY: ERCP IN OR 7.4 min 83.50 mGy FINDINGS: FLUOROSCOPY LESS THAN 1 HOUR HISTORY: Fluoroscopy guidance. Fluoroscopic guidance was provided for ERCP in the OR. A single spot film was obtained. A total of 7.4 minutes of fluoroscopy time were used. Total DAP: 83.50 mGy IMPRESSION: As above. Reviewed, Interpreted and Dictated by Tawanda Pabon MD Transcribed by Elizabeth Dash Authenticated and [facility]
--- NOTE | 2024-05-03 10:56 | EXP.ANES.II ---
[facility] Anesthesia Record Part II Anesthesia Record Part II Discharge Time: 16:15 Destination: Surgical Day Care (OP Surgery) PACU nurse assessment reviewed?: Yes Patient Condition:: Good Anesthesia Complications:: None Swallowing reflex intact?: Yes Airway Patency: Patent Cyanosis?: No Blood Pressure: 145/84 SaO2: 97 Respiratory Rate: 17 Pulse Rate: 80 Temperature: 97.8 F Mental Status: Alert & Oriented Pain level:: 0 Nausea and/or vomitting:: None Intake, IV Amount: 0 Hydration: Adequate
[2024-05-03 10:57] VITALS: BP 145/84; PULSE 80; RESP 17; TEMP 36.6; O2SAT 97
== END 2024-05-02 16:46 | disposition home or self-care (01) ==
PROVIDERS: PCP Family Medicine; Visit Provider Internal Medicine Gastroenterology
PROC: (CPT 43260; principal; 2024-05-02 14:30)
DX: K80.50 Calculus of bile duct without cholangitis or cholecystitis without obstruction (principal); Z98.890 Other specified postprocedural states
CPT/HCPCS: 43276; C7544; 74330; 76000; J3490; C1726; C1874; C1889

== ENCOUNTER 2024-06-16 07:26 | Inpatient (IN) | payer MEDICARE, MEDICAID, SELFPAY ==
[2024-06-16] VITALS (22 sets, daily range): BP systolic 99–138; BP diastolic 46–84; PULSE 64–109; RESP 12–34; TEMP 35–38; O2SAT 87–100; BMI 26.2
--- NOTE | 2024-06-16 07:34 | ECG_ITS ---
APPROVED REPORT Exam: Resting ECG HR:65 bpm ECG Measurements Heart Rate 65 AXES QRSd 154 QRS 2 QT 473 T 128 QTc 485 Conclusion Difficult ascertain underlying rhythm given motion artifact. No acute STEMI. Electronically signed by : VIOLET DONOVAN, 06/16/2024 16:18:17
--- NOTE | 2024-06-16 07:40 | XR_ITS ---
FINAL REPORT CLINICAL HISTORY: resp failure, AMS COMPARISON: 04/27/2024 FINDINGS: A single AP view of the chest was obtained. The heart size is normal. There are bilateral interstitial opacities which are unchanged. There has been interval worsening of bibasilar airspace opacities and left, greater than right, pleural effusions. Findings could represent pulmonary edema or pneumonia. There is no pneumothorax. IMPRESSION: Worsening bibasilar airspace opacities and pleural effusions could represent pulmonary edema or pneumonia. Reviewed, Interpreted and Dictated by Kacey Serrano MD Transcribed by Juliette Sorensen Authenticated and [facility]
--- NOTE | 2024-06-16 07:46 | PC.NURSE ---
spoke with pts daughter to let her know pt was in ER.
--- NOTE | 2024-06-16 07:49 | HMH.EDGENADL ---
Discharge Plan Disposition Patient Disposition: Admitted Clinical Impressions Clinical Impression: Severe sepsis, AMS (altered mental status), Acute UTI, Acute on chronic respiratory failure with hypoxia and hypercapnia, Non-ST elevation MO (NSTEMI), Acute exacerbation of CHF (congestive heart failure), Pleural effusion Discharge ED Provider: Cassandra Barton General Adult HPI General Chief complaint: Altered Mental Status Stated complaint: Aspiration Time Seen by Provider: 06/16/24 07:33 History of Present Illness HPI narrative: This patient is an 88-year-old female with a history of dementia, extensive cardiovascular history including CHF, CAD, hypertension, hyperlipidemia, and history of COPD presenting to the emergency department for evaluation with concern for possible aspiration event. According to nursing facility, patient is on 2 L nasal cannula at all times and had a possible aspiration event this morning and was found to be saturating 60% on her 2 L nasal cannula. EMS corroborate story upon arrival. They note that they increased her supplemental oxygen and put it in her mouth, she was mouth breathing, and this did improve her O2 saturations. Otherwise, vital stable en route. Patient arrives from [facility] and has a signed DNR/DNI. Family was called by nursing upon arrival to verify this. Patient groans to stimuli but does not provide any sort of meaningful history or follow commands. Related Data Home Medications ?Medication ?Instructions ?Recorded ?Confirmed bisacodyl 10 mg rectal suppository 10 mg OH DAILYP PRN Constipation 12/11/19 06/16/24 docusate sodium 250 mg capsule 250 mg PO DAILY 12/11/19 06/16/24 melatonin 3 mg capsule 3 mg PO HS 12/11/19 06/16/24 ondansetron HCl 4 mg tablet 4 mg PO Q6HP PRN Nausea And 12/11/19 06/16/24 (Zofran) Vomiting aspirin 81 mg chewable tablet 81 mg PO DAILY 07/20/21 06/16/24 clopidogrel 75 mg tablet 75 mg PO DAILY 07/20/21 06/16/24 sertraline 50 mg tablet 50 mg PO DAILY 07/20/21 06/16/24 sodium chloride 0.65 % nasal spray 1 spray intranasal BID 02/27/23 06/16/24 aerosol (Deep Sea Nasal) guaifenesin 100 mg/5 mL oral 200 mg PO Q6HP PRN Congestion 01/11/24 06/16/24 liquid (Radha-Tussin) ropinirole 2 mg tablet 2 mg PO BID 01/11/24 06/16/24 sertraline 25 mg tablet 25 mg PO DAILY 01/11/24 06/16/24 benzonatate 100 mg capsule 100 mg PO TIDP PRN Cough 04/05/24 06/16/24 furosemide 20 mg tablet 20 mg PO DAILY 06/07/24 06/16/24 ipratropium 0.5 mg-albuterol 3 mg 3 ml inhalation Q6HP PRN Shortness 06/16/24 06/16/24 (2.5 mg base)/3 mL nebulization Of Breath soln Previous Rx's ?Medication ?Instructions ?Recorded gabapentin 100 mg capsule 100 mg PO BID #60 caps 04/06/24 pantoprazole 40 mg tablet,delayed 40 mg PO DAILY 30 days #30 tabs 04/18/24 release hydrocodone 5 mg-acetaminophen 325 1 tab PO BID PRN severe pain #60 05/18/24 mg tablet tabs Allergies Allergy/AdvReac Type Severity Reaction Status Date / Time alendronate sodium (From Allergy Unknown Unknown Verified 06/07/24 13:00 Fosamax) allergy reaction NSAIDS (Non-Steroidal Allergy Unknown Unknown Verified 06/07/24 13:00 Anti-Inflamma allergy reaction Penicillins Allergy Unknown Unknown Verified 06/07/24 13:00 allergy reaction PFSH PFS Disclaimer: The information contained in this section may have been updated after the patient was seen, as this information can be updated by other users. Medical History Elevated diaphragm Chronic respiratory failure with hypoxia Collapse, lung Depression Closed head injury Choledocholithiasis Diverticulitis UTI (urinary tract infection) Arthralgia of elbow, left Fall Elevated LFTs CHERRY (acute kidney injury) Thrombocytopenia Anemia Pancreatitis Renal insufficiency Bacterial infection due to Proteus mirabilis Respiratory failure with hypercapnia Obesity (BMI 30-39.9) Elevated troponin IVCD (intraventricular conduction defect) Severe sepsis with acute organ dysfunction Cough with hemoptysis COPD with acute exacerbation Respiratory failure with hypercapnia Anemia Healthcare-associated pneumonia Fall History of MO (myocardial infarction) Age-related physical debility Overactive bladder Rheumatic arteritis Gastroesophageal reflux disease Heart failure Chronic insomnia Anxiety Major depression in partial remission Dementia Hyperlipidemia Hypertension Surgical History Surgical history unknown Family History Other No significant family history Social History (Updated 06/16/24 @ 13:34 by Marisol Todd RN) Smoking Status: Former smoker tobacco type: cigarettes alcohol intake: never substance use type: denies use and other current occupational status: retired Travel in the last 8 weeks: None housing: halfway Have you lived/traveled outside [place] in past 30 days?: No Contact w/someone who lives/traveled outside US past 30 days?: No Exposure to someone with infectious disease in past 14 days?: No Do you have a fever (greater than 100.4 F or 38 C)?: No Have you tested positive for COVID-19: No Exposed to someone with COVID-19 in past 14 days?: No Do you have a sore throat?: No Do you have a cough?: No Do you have any weakness?: No Are you experiencing any nausea/vomitting?: No Do you have any diarrhea?: No Are you experiencing any unusual bleeding?: No Do you have any muscle aches/pain?: No Do you have any abdominal pain?: No Are you experiencing loss of taste or smell?: No Other Medical History Have you received the Flu Vaccine for this season: No Have you received the Pneumonia Vaccine: Yes (07/11/19) ROS Obtained: Yes unobtainable due to mental status Physical Exam General General appearance: in distress Head Head exam: atraumatic and normocephalic Eye Eye exam: Present miosis ENT ENT exam: Present mucous membranes dry Neck Neck exam: Present normal inspection Chest Chest inspection: Present normal inspection and symmetric chest wall rise Respiratory Respiratory exam: Present respiratory distress, accessory muscle use, prolonged expiratory phase and other (profoundly diminished breath sounds) Cardiovascular Cardiovascular exam: Present regular rate Abdominal Exam Abdominal exam: Present soft; Absent distention, tenderness or guarding Extremities Exam Extremities exam: Present edema Neurological Exam Neurological exam: Absent alert or oriented X3 Expanded Neurological Exam Coma scale eye opening: None Coma scale motor response: None Coma scale verbal response: Incomprehensible Coma scale total: 4 Comment: groans, no other meaningful response Psychiatric Psychiatric exam: Present flat affect Skin Skin exam: Present warm and dry Medical Decision Making Medical Records Screening: Per USPSTF and CDC recommendations, given the prevalence of disease in our region, it is our hospital?s policy to screen for HIV and viral Hepatitis for all patients aged 18 and over and those with ongoing risk factors. Leonel Inquiry Pt receiving controlled substance: No Vital Signs: 06/16/24 08:00 06/16/24 08:00 06/16/24 08:14 Temperature 95.4 F L 95.0 F L Temperature Source Rectal Pulse Rate 67 Pulse Rate [Left Radial] 73 Respiratory Rate 16 19 Blood Pressure 113/57 L Blood Pressure [Right Arm] 110/50 L Blood Pressure Mean Blood Pressure Mean [Right Arm] 70 02 Sat by Pulse Oximetry 94 L 87 L Oxygen Delivery Method Nasal Cannula Nasal Cannula Oxygen Flow Rate (LPM) 7 Fraction of Inspired Oxygen 30 06/16/24 08:15 06/16/24 08:25 06/16/24 08:30 Temperature 96.3 F L Temperature Source Pulse Rate 74 73 76 Pulse Rate [Left Radial] Respiratory Rate 22 20 Blood Pressure 113/54 L Blood Pressure [Right Arm] Blood Pressure Mean Blood Pressure Mean [Right Arm] 02 Sat by Pulse Oximetry 97 Oxygen Delivery Method BiPAP Oxygen Flow Rate (LPM) Fraction of Inspired Oxygen 06/16/24 09:00 06/16/24 09:30 06/16/24 10:20 Temperature 97.0 F L Temperature Source Pulse Rate 77 78 Pulse Rate [Left Radial] Respiratory Rate 17 20 Blood Pressure 103/46 L 111/51 L Blood Pressure [Right Arm] Blood Pressure Mean 65 63 Blood Pressure Mean [Right Arm] 02 Sat by Pulse Oximetry 98 Oxygen Delivery Method Oxygen Flow Rate (LPM) Fraction of Inspired Oxygen 50 06/16/24 10:30 06/16/24 11:00 06/16/24 11:30 Temperature 97.7 F 97.9 F 98.2 F Temperature Source Pulse Rate 76 75 72 Pulse Rate [Left Radial] Respiratory Rate 18 15 22 Blood Pressure 108/52 L 99/57 L 114/62 Blood Pressure [Right Arm] Blood Pressure Mean 78 Blood Pressure Mean [Right Arm] 02 Sat by Pulse Oximetry 99 99 99 Oxygen Delivery Method BiPAP BiPAP Oxygen Flow Rate (LPM) Fraction of Inspired Oxygen 06/16/24 12:25 Temperature 98.2 F Temperature Source Pulse Rate 80 Pulse Rate [Left Radial] Respiratory Rate 20 Blood Pressure 138/79 Blood Pressure [Right Arm] Blood Pressure Mean Blood Pressure Mean [Right Arm] 02 Sat by Pulse Oximetry Oxygen Delivery Method BiPAP Oxygen Flow Rate (LPM) Fraction of Inspired Oxygen Lab Data Lab Results 06/16/24 07:30: SARS-CoV-2 (PCR) Not detected, Influenza A Untype (PCR) Not detected, Influenza Type B (PCR) Not detected 06/16/24 07:34: WBC 20.8 H*, RBC 4.50, Hgb 11.8 L, Hct 43.4, MCV 96.4, MCH 26.2 L, MCHC 27.2 L, RDW 17.5, Plt Count 405, MPV 10.7 H, Neut % (Auto) 78.9, Lymph % (Auto) 10.3, Harvey % (Auto) 10.1 H, Eos % (Auto) 0.0 L, Baso % (Auto) 0.2, Neut # (Auto) 16.4 H, Lymph # (Auto) 2.1, Harvey # (Auto) 2.1 H, Eos # (Auto) 0.0, Baso # (Auto) 0.0, Total Counted 100, Neutrophils % (Manual) 84 H, Lymphocytes % (Manual) 12, Monocytes % (Manual) 4, Platelet Estimate Normal, Hypochromasia 2+, PT 10.6, INR 0.94, APTT 24.9, D-Dimer 1.05 H, VBG pH 7.00 L, VBG pCO2 132.8 H, VBG pO2 73.0 H, VBG HCO3 32.1 H, VBG Total CO2 36.2 H, VBG O2 Saturation 92.1 H, VBG Base Excess 0.8, VBG Lactic Acid 2.1 H, Sodium 143, Potassium 4.8, Chloride 102, Carbon Dioxide 35 H, Anion Gap 10.8, BUN 22 H, Creatinine 1.00, Estimated GFR 52 L, Est GFR ( Amer) 63, Glucose 142 H, Lactate 1.6, Calcium 9.3, Phosphorus 7.9 H, Magnesium 2.4 H, Total Bilirubin 0.7, AST 64 H, ALT 29, Alkaline Phosphatase 81, Total Creatine Kinase 25 L, Troponin I 0.15 H, C-Reactive Protein 1.3, NT-Pro-B Natriuret Pep 06228 H, Total Protein 6.6, Albumin 3.8, Globulin 2.8, Albumin/Globulin Ratio 1.4, TSH 1.56, Thyroxine (T4) 5.5 L 06/16/24 07:49: Urine Color Yellow, Urine Appearance Cloudy, Urine pH 5.5, Ur Specific [place] >= 1.030, Urine Protein 30, Urine Glucose (UA) Negative, Urine Ketones Negative, Urine Blood Moderate, Urine Nitrate Negative, Urine Bilirubin Negative, Urine Urobilinogen 0.2, Ur Leukocyte Esterase Moderate, Urine RBC None, Urine WBC Tntc, Ur Squamous Epith Cells 10-20, Urine Bacteria 2+ 06/16/24 08:13: VBG pH 7.27 L, VBG pCO2 57.8 H, VBG pO2 66.0 H, VBG HCO3 26.1, VBG Total CO2 27.8 H, VBG O2 Saturation 94.6 H, VBG Base Excess -0.8, VBG Lactic Acid 2.5 H 06/16/24 10:35: Troponin I 0.12 H 06/16/24 07:34 06/16/24 07:34 Orders (Tests/Meds): ED MEDICATIONS Generic Name Dose Route Start Last Admin Trade Name Freq PRN Reason Stop Dose Admin Acetaminophen 650 mg 06/16/24 11:57 Acetaminophen 325mg Tab PO 07/16/24 11:56 Q4HP PRN Fever or Mild Pain (1-3) Albuterol/Ipratropium 3 ml 06/16/24 14:00 06/16/24 13:05 Ipratropium/Albuterol 3 Ml [facility] 07/16/24 13:59 Not Given Q4RT SRINIVASA Budesonide 0.5 mg 06/16/24 12:05 06/16/24 13:04 Budesonide 0.5mg/2ml [facility] 07/16/24 12:04 Not Given BIDRT SRINIVASA Enoxaparin Sodium 40 mg 06/17/24 09:00 Enoxaparin 40mg/0.4ml Syringe SUBCUT 07/17/24 08:59 DAILY SRINIVASA Piperacillin Sod/Tazobactam 50 mls @ 100 mls/hr 06/16/24 15:30 Sod 3.375 gm/ Sodium Chloride IV 06/26/24 15:29 Q6H SRINIVASA Ondansetron HCl 4 mg 06/16/24 11:57 Ondansetron 4mg/2ml Vial IV 07/16/24 11:56 Q8HP PRN Nausea Sodium Chloride 3 ml 06/16/24 07:40 06/16/24 08:24 Sodium Chloride 3% 15ml [facility] 07/16/24 07:39 3 ml ONCE PRN Administration IN[employer]CE [employer] Discontinued Medications Generic Name Dose Route Start Last Admin Trade Name Freq PRN Reason Stop Dose Admin Albuterol Sulfate 20 mg 06/16/24 07:51 06/16/24 08:10 Albuterol 0.083% 2.5 Mg/3 Ml [facility] 06/16/24 07:52 20 mg ONCE ONE Administration Albuterol/Ipratropium 9 ml 06/16/24 07:48 06/16/24 08:11 Ipratropium/Albuterol 3 Ml [facility] 06/16/24 07:49 9 ml ONCE ONE Administration Furosemide 80 mg 06/16/24 11:22 06/16/24 11:44 Furosemide 40mg/4ml Vial IV 06/16/24 11:23 80 mg ONCE ONE Administration Lactated Ringer's 1,000 mls @ 999 mls/hr 06/16/24 07:40 06/16/24 08:20 Lactated Ringer's 1000 Ml Bag IV 06/16/24 08:40 999 mls/hr .Q1H1M ONE Administration Cefepime HCl 2 gm/ Sodium 100 mls @ 200 mls/hr 06/16/24 07:48 06/16/24 08:12 Chloride IV 06/16/24 08:17 200 mls/hr ONCE ONE Administration Vancomycin/PEG/NADA/Lysine/Water 1.25 gm in 250 mls @ 125 mls/hr 06/16/24 08:00 06/16/24 09:04 Vancomycin 1.25gm/250ml (Peg) Premix IV 06/16/24 09:59 125 mls/hr ONCE ONE Administration Magnesium Sulfate 2 gm in 50 mls @ 50 mls/hr 06/16/24 07:51 06/16/24 08:09 Magnesium Sulfate 2gm/50ml Premix IV 06/16/24 08:50 50 mls/hr ONCE ONE Administration Iopamidol 80 ml 06/16/24 10:22 06/16/24 10:23 Iopamidol-370 (76%);100ml Bottle IV 06/16/24 10:23 80 ml ONCE ONE Administration Methylprednisolone Sodium Succinate 125 mg 06/16/24 07:48 06/16/24 08:09 Methylprednisolone Sod Succ 125mg Vial IV 06/16/24 07:49 125 mg ONCE ONE Administration Miscellaneous 1 each 06/16/24 08:00 Vancomycin Consult Request NOTAPPLIC 07/16/24 07:59 [facility]SULT [facility] Sodium Chloride 40 ml 06/16/24 10:22 06/16/24 10:23 0.9 % Sodium Chloride 50 Ml Vial IV 06/16/24 10:23 40 ml ONCE ONE Administration Sodium Chloride 10 ml 06/16/24 10:22 06/16/24 10:23 Sodium Chloride 0.9% 10ml Syr (Rad Only) IV 06/16/24 10:23 10 ml ONCE ONE Administration ORDERS Category Date Time Status CT abdomen pelvis w con Stat Cat Scan 06/16/24 08:[address] angio chest PE protocol Stat Cat Scan 06/16/24 08:[address] head/brain wo con Stat Cat Scan 06/16/24 08:29 Completed CXR --portable [XR chest portable] Stat Exams 06/16/24 07:40 Completed Activated Partial Thrombo Time Stat Lab 06/16/24 07:34 Completed BNP [NT Pro Brain Natriuretic Pep.] Stat Lab 06/16/24 07:34 Completed C-Reactive Protein Stat Lab 06/16/24 07:34 Completed Complete Blood Count Auto Diff AMLAB Lab 06/17/24 06:00 Ordered Complete Blood Count Auto Diff AMLAB Lab 06/18/24 06:00 Ordered Complete Blood Count Auto Diff AMLAB Lab 06/19/24 06:00 Ordered Complete Blood Count Auto Diff AMLAB Lab 06/20/24 06:00 Ordered Complete Blood Count Auto Diff AMLAB Lab 06/21/24 06:00 Ordered Complete Blood Count Auto Diff Stat Lab 06/16/24 07:34 Completed Comprehensive Metabolic Panel AMLAB Lab 06/17/24 06:00 Ordered Comprehensive Metabolic Panel AMLAB Lab 06/18/24 06:00 Ordered Comprehensive Metabolic Panel AMLAB Lab 06/19/24 06:00 Ordered Comprehensive Metabolic Panel AMLAB Lab 06/20/24 06:00 Ordered Comprehensive Metabolic Panel AMLAB Lab 06/21/24 06:00 Ordered Comprehensive Metabolic Panel Stat Lab 06/16/24 07:34 Completed Creatine Kinase Stat Lab 06/16/24 07:34 Completed D-Dimer Stat Lab 06/16/24 07:34 Completed Lactic Acid Stat Lab 06/16/24 07:34 Completed Lipid Panel AMLAB Lab 06/17/24 06:00 Ordered MAG [Magnesium] Stat Lab 06/16/24 07:34 Completed Magnesium AMLAB Lab 06/17/24 06:00 Ordered Magnesium AMLAB Lab 06/18/24 06:00 Ordered Magnesium AMLAB Lab 06/19/24 06:00 Ordered Magnesium AMLAB Lab 06/20/24 06:00 Ordered Magnesium AMLAB Lab 06/21/24 06:00 Ordered PHOS [Phosphorous] Stat Lab 06/16/24 07:34 Completed Phosphorous AMLAB Lab 06/17/24 06:00 Ordered Prothrombin Time INR Stat Lab 06/16/24 07:34 Completed Rapid PCR Covid and Flu A/B Stat Lab 06/16/24 07:30 Completed T4 (Thyroxine) Stat Lab 06/16/24 07:34 Completed TSH [Thyroid Stimulating Hormone] Stat Lab 06/16/24 07:34 Completed Trop I [Troponin I] Stat Lab 06/16/24 07:34 Completed Troponin I Q3H Lab 06/16/24 10:35 Completed Troponin I Q3H Lab 06/16/24 13:45 Completed Urinalysis and Microscopic Stat Lab 06/16/24 07:49 Completed Blood Culture Stat Micro 06/16/24 07:39 Received Sputum Culture & Gram Stain Stat Micro 06/16/24 07:41 Ordered Urine Culture Stat Micro 06/16/24 07:41 Received VBG [Venous Blood Gas] Stat RT 06/16/24 07:34 Completed VBG [Venous Blood Gas] Timed RT 06/16/24 08:13 Completed ECG Data Tracing #1: I reviewed this ECG and interpreted as documented below: Difficult ascertain underlying rhythm given motion artifact. Looks like a sinus rhythm. no STEMI. Motion artifact from respiratory effort degrades study ECG initial impression date: 06/16/24 ECG initial impression time: 07:35 Medical Decision Narrative: In summary, this patient is a 88-year-old female presenting to the Emergency Department for evaluation of low oxygen, possible aspiration event. Differential diagnoses considered include but are not limited to sepsis, COPD exacerbation, CHF exacerbation, UTI, respiratory failure, CHERRY, among many other things. Ruling out the most morbid conditions drove assessment. It should be noted patient's history includes extensive cardiovascular history, COPD, CHF, chronic respiratory failure which likely are not at goal therapy. This complicates all aspects of care by increasing patient's risk for morbidity. I reviewed patient's past medical records and noted similar presentation in March of this year. He was sick at that time, patient was critically ill at the point of needing intubation, but family elected to make the patient DNR/DNI and continue with supportive care otherwise. They elected not to go comfort care at that time, however. Patient was discharged after 1 week and is somewhat improved condition. She had tested positive for fluid during her hospitalization. Workup was also concerning for sepsis in the setting of multifocal pneumonia and bibasilar pleural effusions. She also had volume overload in the setting of CHF On exam, the patient is in acute distress with a GCS of 4. She only groans with any sort of stimuli but has no other sort of meaningful neurologic response. She is in respiratory distress with significantly diminished breath sounds and prolonged expiratory phase. She is tachypneic and hypothermic. Blood pressure normal, heart rate normal. O2 saturation is 87 to 88% on 4 L nasal cannula. Workup included broad lab evaluation to evaluate for infectious, metabolic, cardiac derangements as well as a stat portable chest x-ray. I would like to obtain CT scans as well, will make sure we have the patient stabilized. Patient was immediately given DuoNebs x 3 as well as IV methylprednisolone, IV magnesium, and a continuous albuterol neb with concern for severe COPD exacerbation. VBG came back with a pH of 7 and a CO2 of 133. Lactic is 2.1. Given this, I elected to have the patient put on BiPAP by respiratory to try and improve respiratory acidosis. It looks like last time she was on Vapotherm during her hospitalization. I ordered a bolus of IV fluids but did not order a full sepsis bolus given her history of heart failure. She is hypothermic and tachypneic in addition to being very ill-appearing, some concern for sepsis. I did start the patient on IV vancomycin and cefepime for broad antibiotic coverage. BiPAP settled out at 22/6 30% FiO2 rate 22. Magnesium was discontinued, ordered initially for severe COPD exacerbation, as patient found to have hypermagnesemia and hyperphosphatemia. I independently interpreted chest x-ray prior to the radiologist read and noted increasing infiltrates concerning for edema versus pneumonia. Please see their read for final interpretation. In addition to the labs showing respiratory acidosis, patient also has a leukocytosis that is significant. Chemistry demonstrates mildly elevated CO2, mildly elevated BUN, hyperphosphatemia, hypermagnesemia, mild transaminitis, troponin is initially elevated without STEMI on EKG. BNP is significantly elevated when compared to prior. T4 slightly low with a normal TSH. Urinalysis is concerning for infection with too numerous to count white blood cells, though is slightly contaminated with squamous cells. The patient had an elevated D-dimer, so elected to obtain CT PE protocol. Given that her altered mental status, inability to provide an accurate history, and sepsis, I did decide to obtain CT head without contrast and CT abdomen pelvis with IV contrast as well. On reassessment, patient had no clinical improvement after administration of interventions above and BiPAP. Repeat VBG obtained shows improving respiratory acidosis, though still persistent. I discussed with family that patient would likely need intubation with her clinical picture and no improvement in her mental status, however they advised that she is DNR/DNI and they would not want to pursue aggressive measures. If she does not improve on BiPAP, they would consider comfort care measures, which they have already talked about in the past. The patient's CT scans were independently interpreted by myself and noted no intracranial hemorrhage or large space-occupying lesion, no PE, no obvious intra-abdominal infection or ureterolithiasis. Patient does have significant groundglass opacities and effusions. please to radiology read for final interpretation. They note concerns for possible fecal impaction, however patient is having really good bowel movements. Ultimately, I feel the patient benefits from admission for continued management of acute on chronic respiratory failure, altered mental status, sepsis, UTI among other current medical comorbidities. I had an interactive discussion with the hospitalist who admitted the patient in critical condition. Family at bedside and updated to plan of care. Critical Care Critical Care Time Critical Care Time: Yes Attestation: On 06/16/24, the high probability of a clinically significant, sudden or life threatening deterioration of the following system(s) required my full and direct attention, intervention and personal management. The time I documented below is in addition to time spent performing reported procedures but includes the following listed in this critical care notation. Total Time Total Critical Care Time: 75
[2024-06-16 07:50] LABS: VBG Base Excess 0.8 mmol/L (-2.4-2.3); VBG HCO3 32.1 mmol/L (23-30); VBG Oxygen Saturation 92.1 % (50-70); VBG Total CO2 36.2 mmol/L (23-27)
[2024-06-16 07:52] LABS: Lactate Venous 2.1 mmol/L (0.4-2.0); VBG PCO2 132.8 mmol/L (35-51)
[2024-06-16 07:55] LABS: Basophils % 0.2 % (0.1-2.0); Hematocrit 43.4 % (37.0-47.0); Hemoglobin 11.8 g/dL (12.2-16.2); Lymphocytes # 2.1 K/mm3 (0.7-4.5); Lymphocytes % 10.3 % (10-50); Mean Corpuscular HGB Conc 27.2 g/dL (31.8-35.4); Mean Corpuscular Hemoglobin 26.2 pg (27.0-31.2); Mean Corpuscular Volume 96.4 fl (81-99); Mean Platelet Volume 10.7 fl (7.4-10.4); Monocytes # 2.1 K/mm3 (0.1-1.0); Monocytes % 10.1 % (1.7-9.3); Neutrophils # 16.4 K/mm3 (1.8-7.8); Neutrophils % 78.9 % (37.0-80.0); Platelet Count 405 K/mm3 (142-424); Red Cell Distribution Width 17.5 % (11.5-17.5); White Blood Count 20.8 K/mm3 (4.8-10.8)
[2024-06-16 07:58] LABS: Microscopic, Urine URINE MICROSCOPIC (MICROSCOPIC)
[2024-06-16 07:58] LABS: MANUAL DIFFERENTIAL MANUAL DIFFERENTIAL (MANUAL DIFF)
[2024-06-16 08:03] LABS: INR 0.94 (0.9-1.1); Prothrombin Time 10.6 seconds (10.1-12.5)
[2024-06-16 08:05] LABS: Appearance,Urine CLOUDY (Clear); Bilirubin,Urine Negative (Negative); Blood, Urine MODERATE (Negative); Color,Urine YELLOW (Yellow); Glucose,Urine (UA) Negative (Negative); Ketones,Urine Negative (Negative); Leukocyte Esterase,Urine MODERATE (Negative); Nitrate,Urine Negative (Negative); PH,Urine 5.5 (5.0-8.5); Protein,Urine 30 (Negative); Specific Gravity, Urine >= 1.030 (1.005-1.030); Urobilinogen,Urine 0.2 EU/dl (0.2)
--- NOTE | 2024-06-16 08:06 | PC.NURSE ---
Dr. Barton notified of VBG results.
[2024-06-16] MEDS: MAGNESIUM SULFATE IN WATER 2 GM/50 ML PIGGYBACK IV (08:09)
[2024-06-16] MEDS: METHYLPREDNISOLONE SOD SUCC 125MG VIAL 125 MG IV (08:09)
[2024-06-16] MEDS: ALBUTEROL 0.083% 2.5 MG/3 ML NEB 20 MG IH (08:10)
[2024-06-16 08:11] LABS: Alanine Aminotransferase 29 U/L (12-78); Albumin Level 3.8 g/dl (3.5-5.0); Albumin/Globulin Ratio 1.4 (1.1-1.8); Alkaline Phosphatase 81 U/L (38-126); Anion Gap 10.8 mEq/L (5-15); Aspartate Amino Transferase 64 U/L (14-36); Bilirubin,Total 0.7 mg/dl (0.2-1.3); Blood Urea Nitrogen 22 mg/dl (7-17); Calcium 9.3 mg/dl (8.4-10.2); Carbon Dioxide 35 mmol/L (22.0-30.0); Chloride 102 mmol/L (98-107); Creatine Kinase 25 U/L (30-135); Estimated Glomerular Filt Rate 52 ml/min (>60); GFR (African American) 63 ML/MIN (>60); Globulin 2.8 g/dL (1.3-3.2); Glucose 142 mg/dl (74-100); Potassium 4.8 mmoL/L (3.5-5.1); Sodium 143 mmol/L (136-145); Total Protein,Serum 6.6 g/dl (6.3-8.2)
[2024-06-16] MEDS: IPRATROPIUM/ALBUTEROL 3 ML NEB 9 ML IH (08:11)
[2024-06-16] MEDS: CEFEPIME HCL 2 GM in 0.9 % SODIUM CHLORIDE 100 ML IV (08:12)
[2024-06-16 08:13] LABS: Lactic Acid 1.6 mmol/L (0.7-2.1); Magnesium 2.4 mg/dl (1.6-2.3); Phosphorous 7.9 mg/dl (2.5-4.5)
[2024-06-16 08:14] LABS: Activated Partial Thrombo Time 24.9 seconds (22.8-30.6)
[2024-06-16 08:16] LABS: C-Reactive Protein 1.3 mg/L (0-4)
[2024-06-16 08:20] LABS: D-Dimer 1.05 ug/mL (0.0-0.5)
[2024-06-16] MEDS: LACTATED RINGERS 1000ML 1,000 ML 999 ML IV (08:20)
[2024-06-16] MEDS: SODIUM CHLORIDE 3% 15ML NEB 3 ML IH (08:24)
[2024-06-16 08:26] LABS: NT Pro Brain Natriuretic Pep. 18700 pg/mL (0-450); Troponin I 0.15 ng/ml (0.00-0.034)
--- NOTE | 2024-06-16 08:29 | CT_ITS ---
FINAL REPORT TECHNIQUE: Axial imaging of the chest is obtained after the administration of contrast. 3-D MIP reformatted images were also obtained and reviewed per PE protocol. This study was performed with techniques to keep radiation doses as low as reasonably achievable (ALARA). Individualized dose reduction techniques using automated exposure control or adjustment of mA and/or kV according to the patient's size were employed. CLINICAL HISTORY: AMS, sepsis unknown etiology COMPARISON: 04/11/2024 FINDINGS: The pulmonary arteries are well filled. There is no evidence of pulmonary embolus. There is no aortic dissection. Heart size is stable. There are several small right hypodense thyroid nodules again noted. No axillary adenopathy is noted. There is an enlarged right paratracheal node, which is stable when compared to the prior exam. No hilar adenopathy is present. Bilateral lower lobe atelectasis is noted, as well as interval enlargement of the bilateral pleural effusions, both now moderate to large in size. There is new interlobular septal thickening present, along with ground glass opacities in the bilateral upper lobes, favor pulmonary edema. No acute osseous abnormality. IMPRESSION: No evidence of pulmonary embolism or aortic dissection. There is an enlarged right paratracheal node, stable in appearance. There has been interval enlargement in the bilateral pleural effusions, both now moderate to large. New interlobular septal thickening with ground glass opacities in the bilateral upper lobes, favor mild pulmonary edema. Reviewed, Interpreted and Dictated by Kacey Serrano MD Transcribed by Tanna Byers Authenticated and [facility]
--- NOTE | 2024-06-16 08:29 | CT_ITS ---
FINAL REPORT TECHNIQUE: Thin section axial images were obtained through the abdomen after intravenous contrast. Reconstruction images were obtained from the axial data. Exam was performed using dose reduction techniques. This study was performed with techniques to keep radiation doses as low as reasonably achievable (ALARA). Individualized dose reduction techniques using automated exposure control or adjustment of mA and/or kV according to the patient's size were employed. CLINICAL HISTORY: AMS, sepsis unknown etiology COMPARISON: 04/11/2024 FINDINGS: The liver is homogeneous. The gallbladder is surgically absent. Pneumobilia is present in the liver related to a common bile duct stent. The spleen, adrenal glands, and pancreas are unremarkable. There is no hydronephrosis or solid renal mass. There is no evidence of small bowel obstruction. There is mild thickening of distal small bowel loops. There is free fluid in the proximal colon. There is no abdominal lymphadenopathy or ascites. The pelvic solid organs are unremarkable. There is a large amount of stool present in the rectum, and rectal impaction is not excluded. Diverticulosis is present in the distal colon. The appendix is not visualized. No secondary signs of appendicitis are noted. There is no pelvic lymphadenopathy or ascites. No acute osseous abnormalities identified. A Kingston catheter is present in the bladder. Diffuse changes of anasarca are noted. Postoperative changes are present in the hips bilaterally, with chronic findings. IMPRESSION: Free fluid is present in the proximal colon with mild thickening of distal small bowel loops, that is worrisome for enterocolitis. A large amount of stool is present in the rectum, and impaction is not excluded. Reviewed, Interpreted and Dictated by Kacey Serrano MD Transcribed by Tanna Byers Authenticated and [facility]
--- NOTE | 2024-06-16 08:29 | CT_ITS ---
FINAL REPORT TECHNIQUE: Thin section axial images were obtained from skull base to vertex without contrast. Coronal and sagittal reconstruction images were obtained from the axial data. Exam was performed using dose reduction techniques such as automated exposure control, adjustment of the mA and kV according to patient size, and use of iterative reconstruction technique. CLINICAL HISTORY: AMS, sepsis unknown etiology COMPARISON: 04/11/2024 FINDINGS: There is mild atrophy. No mass effect or midline shift. No intracranial hemorrhage. No hydrocephalus. Periventricular low density is likely related to mild changes of chronic small vessel ischemia. The basilar cisterns are preserved. The posterior fossa is without acute abnormality. The soft tissues are without acute abnormality. No acute osseous abnormality is identified. IMPRESSION: No acute intracranial abnormality. Mild atrophy and changes suggesting mild chronic small vessel ischemia. Reviewed, Interpreted and Dictated by Kacey Serrano MD Transcribed by Tanna Byers Authenticated and [facility]
[2024-06-16 08:44] LABS: Bacteria,Urine 2+ /lpf; WBC,Urine TNTC #/hpf (0-3)
[2024-06-16 08:46] LABS: T4 (Thyroxine) 5.5 ug/dl (5.53-11.0)
[2024-06-16 08:48] LABS: Hypochromasia 2+; Lymphocytes % 12 % (10-50); Monocytes % 4 % (2-9); Neutrophils % 84 % (42-76); Platelet Estimate Normal; Total Cells Counted 100
[2024-06-16 09:00] LABS: Thyroid Stimulating Hormone 1.56 uIU/mL (0.465-4.68)
[2024-06-16] MEDS: VANCOMYCIN/WATER FOR INJ (PEG) 1.25 GM/250 ML PIGGYBACK IV (09:04)
[2024-06-16 09:52] LABS: Coronavirus 19, PCR Not Detected (NotDetected); Influenza A, PCR Not Detected (NotDetected); Influenza B, PCR Not Detected (NotDetected)
[2024-06-16] MEDS: SODIUM CHLORIDE 0.9% 10ML SYR (RAD ONLY) 10 ML IV (10:23)
[2024-06-16] MEDS: 0.9 % SODIUM CHLORIDE 50 ML VIAL 40 ML IV (10:23)
[2024-06-16] MEDS: IOPAMIDOL-370 (76%);100ML BOTTLE 80 ML IV (10:23)
[2024-06-16 10:37] LABS: VBG Base Excess -0.8 mmol/L (-2.4-2.3); VBG HCO3 26.1 mmol/L (23-30); VBG Oxygen Saturation 94.6 % (50-70); VBG PH 7.27 mmol/L (7.31-7.41); VBG Total CO2 27.8 mmol/L (23-27)
[2024-06-16 10:40] LABS: Lactate Venous 2.5 mmol/L (0.4-2.0); VBG PCO2 57.8 mmol/L (35-51)
[2024-06-16 11:15] LABS: Troponin I 0.12 ng/ml (0.00-0.034)
[2024-06-16] MEDS: FUROSEMIDE 40MG/4ML VIAL 80 MG IV ×2 (11:44→20:41)
[2024-06-16 11:50] LABS: Reflex Lactic Add Lactic Reflex
--- NOTE | 2024-06-16 12:01 | PC.NURSE ---
warehouse record clerk notified of admission
--- NOTE | 2024-06-16 12:23 | PC.NURSE ---
called report to reed quiles in the icu and answered all questions
--- NOTE | 2024-06-16 12:58 | PC.WOUNDNOTE ---
Coccyx w excoriation and small stage I
--- NOTE | 2024-06-16 12:59 | PC.WOUNDNOTE ---
Bruising noted to medial posterior right thigh
--- NOTE | 2024-06-16 13:00 | PC.WOUNDNOTE ---
Bruising noted to Bilat Shins
--- NOTE | 2024-06-16 13:01 | PC.WOUNDNOTE ---
Bruising noted on LFA and L upper arm
--- NOTE | 2024-06-16 13:15 | SW/DCPLANNER ---
Addendum entered by Magy Gil 06/20/24 14:47: I have updated Haley w/ [facility] that patient will return today [facility] level of care. Original Note: This patient currently resides at [facility] level of care. I will continue to follow up w/ Haley at [facility] until patient is ready for discharge. Discharge date is unknown.
[2024-06-16 14:20] LABS: Troponin I 0.12 ng/ml (0.00-0.034)
--- NOTE | 2024-06-16 14:56 | CA_ITS ---
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 Limited EF to assess heart function 2D Dimensions EF AP4 31.00 % GL Strain -9.8 % M-Mode Dimensions RVDd 2.37 cm (0.9-2.6) LVDd 3.91 cm (3.5-5.7) LVDs 3.18 cm (3.5-5.7) IVSd 0.74 cm (0.6-1.1) PWd 0.60 cm (0.6-1.1) EF (Teich) 39.20% FS 18.70% EDV (Teich) 66.30 mL ESV (Teich) 40.30 mL LV Diastology E Decel Time 150 (160-240 msec) E/A Ratio 0.9 Mitral Valve MV E Max Marcelo. 97.0 (40-130 cm/s) MV A Velocity 114.0 (40-130 cm/s) E/A Ratio 0.85 MV PHT 44.0 ms Other Information Study Quality: Fair Conclusion This is a limited TTE to evaluate for LV systolic function. Limited windows were obtained. The left ventricle is normal in size. There is increased LV wall thickness. There is low-normal global LV systolic function. The septum is asynchronous. LVEF is 50%. The right ventricle is normal in size with mildly reduced RV function. Trivial posterior pericardial effusion is present. No obvious echo indications of tamponade. Large pleural effusion is present. Electronically signed by : Juany Ochoa MD 06/19/2024 21:18:28
[2024-06-16 15:38] LABS: Lactate Venous 1.6 mmol/L (0.4-2.0); VBG Base Excess 0.8 mmol/L (-2.4-2.3); VBG HCO3 28.6 mmol/L (23-30); VBG Oxygen Saturation 97.1 % (50-70); VBG PH 7.21 mmol/L (7.31-7.41); VBG PO2 93.3 mmol/L (28-40); VBG Total CO2 30.9 mmol/L (23-27)
[2024-06-16 15:47] LABS: VBG PCO2 72.7 mmol/L (35-51)
[2024-06-16] MEDS: PIPERCILLIN/TAZO 3.375 GM in 0.9 % SODIUM CHLORIDE 50 ML IV ×2 (15:54→20:42)
--- NOTE | 2024-06-16 18:17 | EXP.HP ---
History of Present Illness *Admission Date: 06/16/24 *Reason for visit:: Shortness of breath *History of present illness: Kathy Osullivan is a 88-year-old female who presents from [facility] with shortness of breath. Patient is encephalopathic at this time and history was obtained by ED provider, chart review, and family at bedside. Per nursing facility, oxygen saturations were in the 60s at which point they brought her to the hospital. Workup in the ED significant for WBC 20.8, VBG pH 7.0 pCO2 138, phosphorus 7.9, troponin 0.12, BNP 18,700, negative for COVID and influenza. UA highly suggestive of UTI. CTA chest shows worsening by lateral pleural effusions, multifocal opacities suspicious for edema versus pneumonia. CT abdomen/pelvis shows enterocolitis and severe rectal fecal impaction. Patient was initiated on BiPAP with some improvement in VBG. She was also given breathing treatments, steroids, vancomycin, Zosyn, and Lasix 80 mg. Case discussed with ED provider and decision was made to admit patient for COPD exacerbation, hypercapnic respiratory failure, sepsis secondary to enterocolitis/pneumonia/UTI, NSTEMI, and heart failure exacerbation. [facility] Disclaimer: The information contained in this section may have been updated after the patient was seen, as this information can be updated by other users. Medical History (Updated 06/16/24 @ 19:05 by Hermann Segura MD) Respiratory failure with hypercapnia Elevated diaphragm Chronic respiratory failure with hypoxia Collapse, lung Depression Closed head injury Choledocholithiasis Diverticulitis UTI (urinary tract infection) Arthralgia of elbow, left Fall Elevated LFTs CHERRY (acute kidney injury) Thrombocytopenia Anemia Pancreatitis Renal insufficiency Bacterial infection due to Proteus mirabilis Obesity (BMI 30-39.9) Elevated troponin IVCD (intraventricular conduction defect) Severe sepsis with acute organ dysfunction Cough with hemoptysis COPD with acute exacerbation Respiratory failure with hypercapnia Anemia Healthcare-associated pneumonia Fall History of [place] (myocardial infarction) Age-related physical debility Overactive bladder Rheumatic arteritis Gastroesophageal reflux disease Heart failure Chronic insomnia Anxiety Major depression in partial remission Dementia Hyperlipidemia Hypertension Surgical History Surgical history unknown Family History Other No significant family history Social History (Updated 06/16/24 @ 13:34 by Marisol Todd RN) Smoking Status: Former smoker tobacco type: cigarettes alcohol intake: never substance use type: denies use and other current occupational status: retired Travel in the last 8 weeks: None housing: retirement Have you lived/traveled outside [place] in past 30 days?: No Contact w/someone who lives/traveled outside US past 30 days?: No Exposure to someone with infectious disease in past 14 days?: No Do you have a fever (greater than 100.4 F or 38 C)?: No Have you tested positive for COVID-19: No Exposed to someone with COVID-19 in past 14 days?: No Do you have a sore throat?: No Do you have a cough?: No Do you have any weakness?: No Are you experiencing any nausea/vomitting?: No Do you have any diarrhea?: No Are you experiencing any unusual bleeding?: No Do you have any muscle aches/pain?: No Do you have any abdominal pain?: No Are you experiencing loss of taste or smell?: No Other Medical History Have you received the Flu Vaccine for this season: Yes Have you received the Pneumonia Vaccine: Yes Meds Home Medications and Allergies Home Medications ?Medication ?Instructions ?Recorded ?Confirmed ?Type bisacodyl 10 mg rectal suppository 10 mg HI DAILYP PRN Constipation 12/11/19 06/16/24 History docusate sodium 250 mg capsule 250 mg PO DAILY 12/11/19 06/16/24 History melatonin 3 mg capsule 3 mg PO HS 12/11/19 06/16/24 History ondansetron HCl 4 mg tablet 4 mg PO Q6HP PRN Nausea And 12/11/19 06/16/24 History (Zofran) Vomiting aspirin 81 mg chewable tablet 81 mg PO DAILY 07/20/21 06/16/24 History clopidogrel 75 mg tablet 75 mg PO DAILY 07/20/21 06/16/24 History sertraline 50 mg tablet 50 mg PO DAILY 07/20/21 06/16/24 History sodium chloride 0.65 % nasal spray 1 spray intranasal BID 02/27/23 06/16/24 History aerosol (Deep Sea Nasal) guaifenesin 100 mg/5 mL oral 200 mg PO Q6HP PRN Congestion 01/11/24 06/16/24 History liquid (Radha-Tussin) ropinirole 2 mg tablet 2 mg PO BID 01/11/24 06/16/24 History sertraline 25 mg tablet 25 mg PO DAILY 01/11/24 06/16/24 History benzonatate 100 mg capsule 100 mg PO TIDP PRN Cough 04/05/24 06/16/24 History gabapentin 100 mg capsule 100 mg PO BID #60 caps 04/06/24 06/16/24 Rx pantoprazole 40 mg tablet,delayed 40 mg PO DAILY 30 days #30 tabs 04/18/24 06/16/24 Rx release hydrocodone 5 mg-acetaminophen 325 1 tab PO BID PRN severe pain #60 05/18/24 06/16/24 Rx mg tablet tabs furosemide 20 mg tablet 20 mg PO DAILY 06/07/24 06/16/24 History ipratropium 0.5 mg-albuterol 3 mg 3 ml inhalation Q6HP PRN Shortness 06/16/24 06/16/24 History (2.5 mg base)/3 mL nebulization Of Breath soln New Prescriptions to Start Prescriptions: Allergies Allergy/AdvReac Type Severity Reaction Status Date / Time alendronate sodium (From Allergy Unknown Unknown Verified 06/07/24 13:00 Fosamax) allergy reaction NSAIDS (Non-Steroidal Allergy Unknown Unknown Verified 06/07/24 13:00 Anti-Inflamma allergy reaction Penicillins Allergy Unknown Unknown Verified 06/07/24 13:00 allergy reaction Exam Data for Last 24 hours Vital signs and Labs for Last 24 Hours: Temp Pulse Resp BP Pulse Ox O2 Del Method O2 Flow Rate 99.7 F H 97 H 18 104/62 L 96 BiPAP 7 06/16/24 18:00 06/16/24 18:00 06/16/24 18:00 06/16/24 18:00 06/16/24 18:00 06/16/24 18:00 06/16/24 08:00 FiO2 50 06/16/24 13:37 Laboratory Results - last 24 hr 06/16/24 07:30: SARS-CoV-2 (PCR) Not detected, Influenza A Untype (PCR) Not detected, Influenza Type B (PCR) Not detected 06/16/24 07:34: WBC 20.8 H*, RBC 4.50, Hgb 11.8 L, Hct 43.4, MCV 96.4, MCH 26.2 L, MCHC 27.2 L, RDW 17.5, Plt Count 405, MPV 10.7 H, Neut % (Auto) 78.9, Lymph % (Auto) 10.3, [place] % (Auto) 10.1 H, Eos % (Auto) 0.0 L, Baso % (Auto) 0.2, Neut # (Auto) 16.4 H, Lymph # (Auto) 2.1, [place] # (Auto) 2.1 H, Eos # (Auto) 0.0, Baso # (Auto) 0.0, Total Counted 100, Neutrophils % (Manual) 84 H, Lymphocytes % (Manual) 12, Monocytes % (Manual) 4, Platelet Estimate Normal, Hypochromasia 2+, PT 10.6, INR 0.94, APTT 24.9, D-Dimer 1.05 H, VBG pH 7.00 L, VBG pCO2 132.8 H, VBG pO2 73.0 H, VBG HCO3 32.1 H, VBG Total CO2 36.2 H, VBG O2 Saturation 92.1 H, VBG Base Excess 0.8, VBG Lactic Acid 2.1 H, Sodium 143, Potassium 4.8, Chloride 102, Carbon Dioxide 35 H, Anion Gap 10.8, BUN 22 H, Creatinine 1.00, Estimated GFR 52 L, Est GFR ( Amer) 63, Glucose 142 H, Lactate 1.6, Calcium 9.3, Phosphorus 7.9 H, Magnesium 2.4 H, Total Bilirubin 0.7, AST 64 H, ALT 29, Alkaline Phosphatase 81, Total Creatine Kinase 25 L, Troponin I 0.15 H, C-Reactive Protein 1.3, NT-Pro-B Natriuret Pep 51388 H, Total Protein 6.6, Albumin 3.8, Globulin 2.8, Albumin/Globulin Ratio 1.4, TSH 1.56, Thyroxine (T4) 5.5 L 06/16/24 07:49: Urine Color Yellow, Urine Appearance Cloudy, Urine pH 5.5, Ur Specific [place] >= 1.030, Urine Protein 30, Urine Glucose (UA) Negative, Urine Ketones Negative, Urine Blood Moderate, Urine Nitrate Negative, Urine Bilirubin Negative, Urine Urobilinogen 0.2, Ur Leukocyte Esterase Moderate, Urine RBC None, Urine WBC Tntc, Ur Squamous Epith Cells 10-20, Urine Bacteria 2+ 06/16/24 08:13: VBG pH 7.27 L, VBG pCO2 57.8 H, VBG pO2 66.0 H, VBG HCO3 26.1, VBG Total CO2 27.8 H, VBG O2 Saturation 94.6 H, VBG Base Excess -0.8, VBG Lactic Acid 2.5 H 06/16/24 10:35: Troponin I 0.12 H 06/16/24 13:45: Troponin I 0.12 H 06/16/24 15:06: VBG pH 7.21 L, VBG pCO2 72.7 H, VBG pO2 93.3 H, VBG HCO3 28.6, VBG Total CO2 30.9 H, VBG O2 Saturation 97.1 H, VBG Base Excess 0.8, VBG Lactic Acid 1.6 I & O for Last 24 hours: Intake & Output 06/13/24 06/14/24 06/15/24 06/16/24 23:59 23:59 23:59 23:59 Intake Total 50 / 50 Balance 50 / 50 Weight 60.781 kg Constitutional Constitutional: mild distress *Routine HEENT Exam Head: Present normocephalic Eye: Present EOMI and PERRL ENT: Present mucous membranes moist *Routine Neck Exam Neck: Present supple; Absent lymphadenopathy *Routine Respiratory Exam Respiratory: Present wheezes and diminished air movement; Absent CTA bilaterally *Routine Cardiovascular Exam Cardiovascular: Present RRR *Routine Abdominal Exam Abdominal: Present soft, normoactive bowel sounds and tenderness Comments: Lower abdominal tenderness without peritoneal signs. *Routine Rectal Exam Rectal:: deferred *Routine Genitalia Exam Genitalia:: deferred *Routine Extremities Exam Extremities: Present edema; Absent cyanosis or clubbing Comments: 2+ pitting edema lower extremities. *Routine Skin Exam Skin: Present warm; Absent rash *Routine Neurological Exam Neurological: Present alert and oriented X3 Assessment and Plan *Assessment and plan (1) Respiratory failure with hypercapnia: Status: Acute Qualifiers: Chronicity: acute on chronic Qualified Code(s): J96.22 - Acute and chronic respiratory failure with hypercapnia Category: Medical Code(s): J96.92 - Respiratory failure, unspecified with hypercapnia Plan Kathy Osullivan is a 88-year-old female who presents from [facility] with shortness of breath. Patient is encephalopathic at this time and history was obtained by ED provider, chart review, and family at bedside. Per nursing facility, oxygen saturations were in the 60s at which point they brought her to the hospital. Workup in the ED significant for WBC 20.8, VBG pH 7.0 pCO2 138, phosphorus 7.9, troponin 0.12, BNP 18,700, negative for COVID and influenza. UA highly suggestive of UTI. CTA chest shows worsening by lateral pleural effusions, multifocal opacities suspicious for edema versus pneumonia. CT abdomen/pelvis shows enterocolitis and severe rectal fecal impaction. Patient was initiated on BiPAP with some improvement in VBG. She was also given breathing treatments, steroids, vancomycin, Zosyn, and Lasix 80 mg. Case discussed with ED provider and decision was made to admit patient for COPD exacerbation, hypercapnic respiratory failure, sepsis secondary to enterocolitis/pneumonia/UTI, NSTEMI, and heart failure exacerbation. #Acute hypoxic, hypercapnic respiratory failure #Acute metabolic encephalopathy ? Requiring BiPAP therapy for hypercapnic respiratory failure at this time. ? Secondary to COPD exacerbation, multifocal pneumonia/edema, HFpEF exacerbation, pleural effusions. See separate problems. ? Follow-up full respiratory panel. #COPD exacerbation ? Continue DuoNebs every 4 hours, Pulmicort twice daily. ? Solu-Medrol 40 mg every 12 hours. ? Antibiotics as below. #Sepsis #Community-acquired pneumonia #UTI #Enterocolitis ? CT evidence of pneumonia, enterocolitis, UA highly suggestive of UTI. ? Initial WBC 20.8, with tachypnea and tachycardia. ? Continue Zosyn day 1. Follow-up urine, blood, sputum cultures. ? Hold off on IV fluids given fluid overload. #HFpEF exacerbation #Large bilateral pleural effusions #NSTEMI, likely type II ? Worsened since March 2024. Suspect for worsening heart failure. ? BNP 18,700 with gross signs of volume overload. ? Troponins 0.15, down trended to 0.12. EKG without acute ischemic changes. Likely demand ischemia in the setting of sepsis, respiratory failure. ? IV Lasix 80 mg twice daily. Follow-up urine output, renal function, electrolytes. ? Follow-up limited ECHO. ? Pulmonology and cardiology consulted, pending further recommendations. #Severe rectal fecal impaction ? Soapsuds enema every 8 hours while awake. #Anxiety/depression: Hold home sertraline due to encephalopathy. #Restless leg syndrome: Hold home ropinirole due to encephalopathy. DNR/DNI DVT prophylaxis: Lovenox 40 mg
[2024-06-16] MEDS: BUDESONIDE 0.5MG/2ML NEB 0.5 MG IH (19:07)
[2024-06-16] MEDS: IPRATROPIUM/ALBUTEROL 3 ML NEB IH ×2 (19:07→21:26)
--- NOTE | 2024-06-16 19:12 | ECG_ITS ---
APPROVED REPORT Exam: Resting ECG HR:86 bpm ECG Measurements Heart Rate 86 AXES QRSd 132 QRS 27 QT 406 T 194 QTc 449 Conclusion ATRIAL FIBRILLATION LEFT BUNDLE BRANCH BLOCK [120+ ms QRS DURATION, 80+ ms Q/S IN V1/V2, 85+ ms R IN I/aVL/V5/V6] ABNORMAL ECG INTERPRETATION BASED ON A DEFAULT AGE OF 40 YEARS UNCONFIRMED REPORT Electronically signed by : Robin Carvajal MD 06/17/2024 08:32:05
[2024-06-16 20:05] LABS: VBG Base Excess 1.3 mmol/L (-2.4-2.3); VBG Oxygen Saturation 73.3 % (50-70); VBG PCO2 42.6 mmol/L (35-51); VBG PO2 34.2 mmol/L (28-40); VBG Total CO2 27.3 mmol/L (23-27)
[2024-06-16 20:13] LABS: Lactate Venous 3.7 mmol/L (0.4-2.0)
[2024-06-16] MEDS: METHYLPREDNISOLONE SOD SUCC 40MG VIAL 40 MG IV (20:42)
[2024-06-16 23:19] LABS: Hemoglobin A1C 5.2 % (4.0-6.0)
[2024-06-17] VITALS (25 sets, daily range): BP systolic 95–148; BP diastolic 45–101; PULSE 75–113; RESP 14–26; TEMP 37.2–38; O2SAT 91–98; BMI 24.9
[2024-06-17] MEDS: IPRATROPIUM/ALBUTEROL 3 ML NEB IH ×4 (02:27→17:54)
[2024-06-17] MEDS: DIGOXIN 0.25MG/ML 2ML AMPUL 250 MCG IV (03:36)
[2024-06-17] MEDS: PIPERCILLIN/TAZO 3.375 GM in 0.9 % SODIUM CHLORIDE 50 ML IV ×4 (03:37→20:36)
--- NOTE | 2024-06-17 04:10 | ECG_ITS ---
APPROVED REPORT Exam: Resting ECG HR:124 bpm ECG Measurements Heart Rate 124 AXES QRSd 141 QRS -7 QT 353 T 162 QTc 426 Conclusion ATRIAL FIBRILLATION WITH RAPID VENTRICULAR RESPONSE LEFT BUNDLE BRANCH BLOCK [120+ ms QRS DURATION, 80+ ms Q/S IN V1/V2, 85+ ms R IN I/aVL/V5/V6] ABNORMAL ECG UNCONFIRMED REPORT Electronically signed by : Robin Carvajal MD 06/17/2024 08:32:01
--- NOTE | 2024-06-17 04:26 | PC.NURSE ---
provider contacted to let him know about HR still being in 130's after giving digoxin, no new orders at this time, MD aware.
[2024-06-17 06:00] LABS: Basophils % 0.1 % (0.1-2.0); Hematocrit 32.6 % (37.0-47.0); Lymphocytes # 0.9 K/mm3 (0.7-4.5); Lymphocytes % 6.9 % (10-50); Mean Corpuscular HGB Conc 29.8 g/dL (31.8-35.4); Mean Corpuscular Volume 87.4 fl (81-99); Mean Platelet Volume 10.7 fl (7.4-10.4); Monocytes # 0.7 K/mm3 (0.1-1.0); Monocytes % 5.4 % (1.7-9.3); Neutrophils # 10.8 K/mm3 (1.8-7.8); Neutrophils % 87.1 % (37.0-80.0); Platelet Count 227 K/mm3 (142-424); Red Blood Count 3.73 M/mm3 (4.20-5.40); Red Cell Distribution Width 17.5 % (11.5-17.5); White Blood Count 12.4 K/mm3 (4.8-10.8)
[2024-06-17 06:05] LABS: Alanine Aminotransferase 26 U/L (12-78); Albumin Level 3.3 g/dl (3.5-5.0); Albumin/Globulin Ratio 1.4 (1.1-1.8); Alkaline Phosphatase 72 U/L (38-126); Aspartate Amino Transferase 42 U/L (14-36); Bilirubin,Total 0.6 mg/dl (0.2-1.3); Blood Urea Nitrogen 28 mg/dl (7-17); Calcium 8.6 mg/dl (8.4-10.2); Carbon Dioxide 37 mmol/L (22.0-30.0); Chloride 100 mmol/L (98-107); Chol/HDL Ratio 4.6 (1-3.5); Cholesterol 173 mg/dl (140-200); Creatinine Clearance Estimated 32 mL/min (50-200); Estimated Glomerular Filt Rate 47 ml/min (>60); GFR (African American) 57 ML/MIN (>60); Globulin 2.4 g/dL (1.3-3.2); Glucose 135 mg/dl (74-100); HDL Cholesterol 38 mg/dl (40-60); Phosphorous 4.2 mg/dl (2.5-4.5); Sodium 143 mmol/L (136-145); Total Protein,Serum 5.7 g/dl (6.3-8.2); Triglycerides 105 mg/dl (30-150); VLDL Cholesterol 21 mg/dL (0-40)
[2024-06-17] MEDS: BUDESONIDE 0.5MG/2ML NEB 0.5 MG IH ×2 (06:28→17:54)
--- NOTE | 2024-06-17 07:08 | PC.NURSE ---
replaced campuzano cath, the other catheter balloon would not stay inflated and cath was leaking around the site. sterile technique used, patient tolerated procedure well.
[2024-06-17 07:09] LABS: Hemoglobin 9.7 g/dL (12.2-16.2)
[2024-06-17 07:59] LABS: Adenovirus,PCR Not Detected (NotDetected); Bordetella Pertussis Not Detected (NotDetected); Chlamydophila Pneumoniae, PCR Not Detected (NotDetected); Coronavirus 19, PCR Not Detected (NotDetected); Coronavirus 229E Not Detected (NotDetected); Coronavirus NL63 Not Detected (NotDetected); Coronavirus OC43 Not Detected (NotDetected); Coronovirus HKU1,PCR Not Detected (NotDetected); Human Metapneumovirus Not Detected (NotDetected); Influenza A, PCR Not Detected (NotDetected); Influenza AH1, 2009 Not Detected (NotDetected); Influenza AH1, PCR Not Detected (NotDetected); Influenza AH3,PCR Not Detected (NotDetected); Influenza B, PCR Not Detected (NotDetected); Mycoplasma Pneumoniae, PCR Not Detected (NotDetected); Parainfluenza 1, PCR Not Detected (NotDetected); Parainfluenza 2, PCR Not Detected (NotDetected); Parainfluenza 3, PCR Not Detected (NotDetected); Parainfluenza 4, PCR Not Detected (NotDetected); Respiratory Syncytial Virus Not Detected (NotDetected); Rhinovirus/Enterovirus Not Detected (NotDetected)
--- NOTE | 2024-06-17 08:45 | PC.NURSE ---
pt unable to answer questions for orientation
[2024-06-17] MEDS: ENOXAPARIN 40MG/0.4ML SYRINGE 40 MG SUBCUT (09:33)
[2024-06-17] MEDS: CLOPIDOGREL 75MG TAB 75 MG PO (09:33)
[2024-06-17] MEDS: ASPIRIN 81MG CHEWABLE TABLET 81 MG PO (09:33)
[2024-06-17] MEDS: METHYLPREDNISOLONE SOD SUCC 40MG VIAL 40 MG IV ×2 (09:34→20:17)
[2024-06-17] MEDS: ACETAMINOPHEN 325MG TAB 650 MG PO ×3 (09:46→20:17)
--- NOTE | 2024-06-17 09:58 | P.CONS_ITS ---
History of Present Illness History of present illness: Mr. Osullivan is a 88-year-old female history of COPD, elevated right hemidiaphragm, previous episodes of right lower lobe atelectasis/lung collapse status post bronchoscopy found to have blood clots obstructing her right bronchus recently admitted to the hospital in March 2023 with worsening respiratory distress, worsening pleural effusions managed with Tamiflu, antibiotics and diuretics presented to the hospital again with worsening respiratory distress, altered mentation and pulmonary was called for further evaluation and management. [facility] Disclaimer: The information contained in this section may have been updated after the patient was seen, as this information can be updated by other users. Medical History (Updated 06/16/24 @ 19:05 by Hermann Segura MD) Respiratory failure with hypercapnia Elevated diaphragm Chronic respiratory failure with hypoxia Collapse, lung Depression Closed head injury Choledocholithiasis Diverticulitis UTI (urinary tract infection) Arthralgia of elbow, left Fall Elevated LFTs CHERRY (acute kidney injury) Thrombocytopenia Anemia Pancreatitis Renal insufficiency Bacterial infection due to Proteus mirabilis Obesity (BMI 30-39.9) Elevated troponin IVCD (intraventricular conduction defect) Severe sepsis with acute organ dysfunction Cough with hemoptysis COPD with acute exacerbation Respiratory failure with hypercapnia Anemia Healthcare-associated pneumonia Fall History of DC (myocardial infarction) Age-related physical debility Overactive bladder Rheumatic arteritis Gastroesophageal reflux disease Heart failure Chronic insomnia Anxiety Major depression in partial remission Dementia Hyperlipidemia Hypertension Surgical History Surgical history unknown Family History Other No significant family history Social History (Updated 06/16/24 @ 13:34 by Marisol Todd RN) Smoking Status: Former smoker tobacco type: cigarettes alcohol intake: never substance use type: denies use and other current occupational status: retired Travel in the last 8 weeks: None housing: long-term Have you lived/traveled outside [place] in past 30 days?: No Contact w/someone who lives/traveled outside [place] past 30 days?: No Exposure to someone with infectious disease in past 14 days?: No Do you have a fever (greater than 100.4 F or 38 C)?: No Have you tested positive for COVID-19: No Exposed to someone with COVID-19 in past 14 days?: No Do you have a sore throat?: No Do you have a cough?: No Do you have any weakness?: No Are you experiencing any nausea/vomitting?: No Do you have any diarrhea?: No Are you experiencing any unusual bleeding?: No Do you have any muscle aches/pain?: No Do you have any abdominal pain?: No Are you experiencing loss of taste or smell?: No Review of Systems Constitutional Constitutional: Reports anorexia, Reports body ache(s) and Reports fatigue Eyes Eyes: Denies eye discharge, Denies dry eyes, Denies irritation and Denies itchy eyes ENT Ears, Nose, Mouth, and Throat: Denies epistaxis, Denies facial pain, Denies lip swelling and Denies throat swelling *Cardiovascular Cardiovascular: Reports dyspnea and Reports dyspnea on exertion *Respiratory Respiratory: Denies change in phlegm color, Reports chest congestion, Reports cough, Reports dyspnea, Reports dyspnea on exertion, Denies excessive phlegm production, Denies hemoptysis, Denies pain on inspiration, Denies pain with cough and Reports wheezing *Gastrointestinal Gastrointestinal: Denies abdominal pain, Denies belching and Denies cramping *Musculoskeletal Musculoskeletal: Reports back pain Psychiatric Psychiatric: Denies homicidal ideation and Denies suicidal ideation Endocrine Endocrine: Reports fatigue and Denies heat intolerance Hematologic/Lymphatic Hematologic/Lymphatic: Denies easy bleeding and Denies lymphadenopathy Allergic/Immunologic Allergic/Immunologic: Denies itchy eyes, Denies lip swelling, Denies throat swelling and Reports wheezing Pulmonology Exam Inpatient Vital signs and Labs for Last 24 Hours: Temp Pulse Resp BP Pulse Ox O2 Del Method O2 Flow Rate 100.0 F H 102 H 15 110/45 L 95 Nasal Cannula 4 06/17/24 09:07 06/17/24 09:19 06/17/24 09:07 06/17/24 09:07 06/17/24 09:07 06/17/24 09:07 06/17/24 09:07 FiO2 50 06/16/24 19:08 Laboratory Results - last 24 hr 06/16/24 07:30: Chlamy pneumoniae PCR Not detected, Adenovirus (PCR) Not detected, B. pertussis DNA (PCR) Not detected, Coronavirus OC43 (PCR) Not detected, Coronavirus HKU1 (PCR) Not detected, Coronavirus 229E (PCR) Not detected, SARS-CoV-2 (PCR) Not detected 06/16/24 07:30: SARS-CoV-2 (PCR) Not detected, Coronavirus NL63 (PCR) Not detected, Human Metapneumovir PCR Not detected, Influenza A (H1) PCR Not detected, Influ A (H1N1/09) PCR Not detected, Influenza A (H3) PCR Not detected, Influenza Type A (PCR) Not detected, Influenza A Untype (PCR) Not detected, Influenza Type B (PCR) Not detected 06/16/24 07:30: Influenza Type B (PCR) Not detected, M. pneumoniae (PCR) Not detected, Parainfluenza 1 (PCR) Not detected, Parainfluenza 2 (PCR) Not detected, Parainfluenza 3 (PCR) Not detected, Parainfluenza 4 (PCR) Not detected, RSV (PCR) Not detected, Entero/Rhino (PCR) Not detected 06/16/24 08:13: VBG pH 7.27 L, VBG pCO2 57.8 H, VBG pO2 66.0 H, VBG HCO3 26.1, V BG Total CO2 27.8 H, VBG O2 Saturation 94.6 H, VBG Base Excess -0.8, VBG Lactic Acid 2.5 H 06/16/24 10:35: Troponin I 0.12 H 06/16/24 13:45: Troponin I 0.12 H 06/16/24 15:06: VBG pH 7.21 L, VBG pCO2 72.7 H, VBG pO2 93.3 H, VBG HCO3 28.6, V BG Total CO2 30.9 H, VBG O2 Saturation 97.1 H, VBG Base Excess 0.8, VBG Lactic Acid 1.6 06/16/24 15:26: Hemoglobin A1c 5.2, Folate 10.20 06/16/24 19:30: VBG pH 7.40, VBG pCO2 42.6, VBG pO2 34.2, VBG HCO3 26.0, VBG Total CO2 27.3 H, VBG O2 Saturation 73.3 H, VBG Base Excess 1.3, VBG Lactic Acid 3.7 H 06/17/24 05:47: WBC 12.4 H D, RBC 3.73 L, Hgb 9.7 L D, Hct 32.6 L, MCV 87.4, MCH 26.0 L, MCHC 29.8 L, RDW 17.5, Plt Count 227 D, MPV 10.7 H, Neut % (Auto) 87.1 H, Lymph % (Auto) 6.9 L, Free[place] % (Auto) 5.4, Eos % (Auto) 0.0 L, Baso % (Auto) 0.1, Neut # (Auto) 10.8 H, Lymph # (Auto) 0.9, Freeborn # (Auto) 0.7, Eos # (Auto) 0.0, Baso # (Auto) 0.0, Sodium 143, Potassium 4.0, Chloride 100, Carbon Dioxide 37 H, Anion Gap 10.0, BUN 28 H D, Creatinine 1.10 H, Estimated Creat Clear 32, E stimated GFR 47 L, Est GFR ( Amer) 57 L, Glucose 135 H, Calcium 8.6, P hosphorus 4.2 D, Magnesium 2.0 D, Total Bilirubin 0.6, AST 42 H D, ALT 26, Alkaline Phosphatase 72, Total Protein 5.7 L, Albumin 3.3 L D, Globulin 2.4, Albumin/Globulin Ratio 1.4, Triglycerides 105, Cholesterol 173, LDL Cholesterol Direct 96.00 L, VLDL Cholesterol 21, HDL Cholesterol 38 L, Cholesterol/HDL Ratio 4.6 H I & O for Labs for Last 24 Hours: Intake & Output 06/14/24 06/15/24 06/16/24 06/17/24 23:59 23:59 23:59 23:59 Intake Total 50 / 100 50 / 50 Output Total 1725 / 1950 975 / 975 Balance -1675 / -1850 -925 / -925 Weight 134 lb 126 lb 15.78 oz Microbiology Reports for the Last 24 Hours: Microbiology 06/16/24 07:49 Urine,Catheterized Urine Culture - Preliminary Gram Negative Rods 06/16/24 07:39 Blood Blood Culture - Preliminary NO GROWTH AFTER 24 HOURS 06/16/24 07:34 Blood Blood Culture - Preliminary NO GROWTH AFTER 24 HOURS Constitutional: Present mild distress Head: Present normocephalic and atraumatic ENT: Present normal exam, normal oropharynx and mucous membranes moist Neck: Present normal inspection and full ROM Respiratory: Present respiratory distress, diminished air movement and able to speak in complete sentences; Absent wheezes or crackles Cardiac: Present S1/S2, Tachycardia and radial pulses present GI: Present soft and distention; Absent tenderness or guarding Rectal (female): Present deferred (female): Present deferred Skin: Present intact; Absent cyanosis or jaundice Neuro: Present alert and awake; Absent oriented x 3 Extremities: Present normal inspection; Absent clubbing or cyanosis Psychiatric: Present normal affect and cooperative Meds Home Medications and Allergies Home Medications ?Medication ?Instructions ?Recorded ?Confirmed ?Type bisacodyl 10 mg rectal suppository 10 mg TX DAILYP PRN Constipation 12/11/19 06/16/24 History docusate sodium 250 mg capsule 250 mg PO DAILY 12/11/19 06/16/24 History melatonin 3 mg capsule 3 mg PO HS 12/11/19 06/16/24 History ondansetron HCl 4 mg tablet 4 mg PO Q6HP PRN Nausea And 12/11/19 06/16/24 History (Zofran) Vomiting aspirin 81 mg chewable tablet 81 mg PO DAILY 07/20/21 06/16/24 History clopidogrel 75 mg tablet 75 mg PO DAILY 07/20/21 06/16/24 History sertraline 50 mg tablet 50 mg PO DAILY 07/20/21 06/16/24 History sodium chloride 0.65 % nasal spray 1 spray intranasal BID 02/27/23 06/16/24 History aerosol (Deep Sea Nasal) guaifenesin 100 mg/5 mL oral 200 mg PO Q6HP PRN Congestion 01/11/24 06/16/24 History liquid (Radha-Tussin) ropinirole 2 mg tablet 2 mg PO BID 01/11/24 06/16/24 History sertraline 25 mg tablet 25 mg PO DAILY 01/11/24 06/16/24 History benzonatate 100 mg capsule 100 mg PO TIDP PRN Cough 04/05/24 06/16/24 History gabapentin 100 mg capsule 100 mg PO BID #60 caps 04/06/24 06/16/24 Rx pantoprazole 40 mg tablet,delayed 40 mg PO DAILY 30 days #30 tabs 04/18/24 06/16/24 Rx release hydrocodone 5 mg-acetaminophen 325 1 tab PO BID PRN severe pain #60 05/18/24 06/16/24 Rx mg tablet tabs furosemide 20 mg tablet 20 mg PO DAILY 06/07/24 06/16/24 History ipratropium 0.5 mg-albuterol 3 mg 3 ml inhalation Q6HP PRN Shortness 06/16/24 06/16/24 History (2.5 mg base)/3 mL nebulization Of Breath soln New Prescriptions to Start Prescriptions: Allergies Allergy/AdvReac Type Severity Reaction Status Date / Time alendronate sodium (From Allergy Unknown Unknown Verified 06/07/24 13:00 Fosamax) allergy reaction NSAIDS (Non-Steroidal Allergy Unknown Unknown Verified 06/07/24 13:00 Anti-Inflamma allergy reaction Penicillins Allergy Unknown Unknown Verified 06/07/24 13:00 allergy reaction Results Laboratory Findings 06/17/24 05:47 06/17/24 05:47 PT/INR, D-dimer PT 10.6 seconds (10.1-12.5) 06/16/24 07:34 INR 0.94 (0.9-1.1) 06/16/24 07:34 D-Dimer 1.05 ug/mL (0.0-0.5) H 06/16/24 07:34 Abnormal lab findings: Abnormal Labs 06/16/24 06/16/24 06/16/24 07:34 08:13 10:35 WBC 20.8 H* RBC Hgb 11.8 L Hct MCH 26.2 L MCHC 27.2 L MPV 10.7 H Neut % (Auto) Lymph % (Auto) Freeborn % (Auto) 10.1 H Eos % (Auto) 0.0 L Neut # (Auto) 16.4 H Freeborn # (Auto) 2.1 H Neutrophils % (Manual) 84 H D-Dimer 1.05 H VBG pH 7.00 L 7.27 L VBG pCO2 132.8 H 57.8 H VBG pO2 73.0 H 66.0 H VBG HCO3 32.1 H VBG Total CO2 36.2 H 27.8 H VBG O2 Saturation 92.1 H 94.6 H VBG Lactic Acid 2.1 H 2.5 H Carbon Dioxide 35 H BUN 22 H Creatinine Estimated GFR 52 L Est GFR ( Amer) Glucose 142 H Phosphorus 7.9 H Magnesium 2.4 H AST 64 H Total Creatine Kinase 25 L Troponin I 0.15 H 0.12 H NT-Pro-B Natriuret Pep 57238 H Total Protein Albumin LDL Cholesterol Direct HDL Cholesterol Cholesterol/HDL Ratio Thyroxine (T4) 5.5 L 06/16/24 06/16/24 06/16/24 13:45 15:06 19:30 WBC RBC Hgb Hct MCH MCHC MPV Neut % (Auto) Lymph % (Auto) Freeborn % (Auto) Eos % (Auto) Neut # (Auto) Freeborn # (Auto) Neutrophils % (Manual) D-Dimer VBG pH 7.21 L VBG pCO2 72.7 H VBG pO2 93.3 H VBG HCO3 VBG Total CO2 30.9 H 27.3 H VBG O2 Saturation 97.1 H 73.3 H VBG Lactic Acid 3.7 H Carbon Dioxide BUN Creatinine Estimated GFR Est GFR ( Amer) Glucose Phosphorus Magnesium AST Total Creatine Kinase Troponin I 0.12 H NT-Pro-B Natriuret Pep Total Protein Albumin LDL Cholesterol Direct HDL Cholesterol Cholesterol/HDL Ratio Thyroxine (T4) 06/17/24 05:47 WBC 12.4 H D RBC 3.73 L Hgb 9.7 L D Hct 32.6 L MCH 26.0 L MCHC 29.8 L MPV 10.7 H Neut % (Auto) 87.1 H Lymph % (Auto) 6.9 L Freeborn % (Auto) Eos % (Auto) 0.0 L Neut # (Auto) 10.8 H Free[place] # (Auto) Neutrophils % (Manual) D-Dimer VBG pH VBG pCO2 VBG pO2 VBG HCO3 VBG Total CO2 VBG O2 Saturation VBG Lactic Acid Carbon Dioxide 37 H BUN 28 H D Creatinine 1.10 H Estimated GFR 47 L Est GFR ( Amer) 57 L Glucose 135 H Phosphorus Magnesium AST 42 H D Total Creatine Kinase Troponin I NT-Pro-B Natriuret Pep Total Protein 5.7 L Albumin 3.3 L D LDL Cholesterol Direct 96.00 L HDL Cholesterol 38 L Cholesterol/HDL Ratio 4.6 H Thyroxine (T4) Assessment and Plan *Assessment and plan (1) Respiratory failure with hypercapnia: Status: Acute Qualifiers: Chronicity: acute on chronic Qualified Code(s): J96.22 - Acute and chronic respiratory failure with hypercapnia Category: Medical Code(s): J96.92 - Respiratory failure, unspecified with hypercapnia (2) Pleural effusion: Status: Acute Category: Medical Code(s): J90 - Pleural effusion, not elsewhere classified (3) Acute hypoxic respiratory failure: Status: Acute Category: Medical Code(s): J96.01 - Acute respiratory failure with hypoxia Plan Mr. Osullivan is a 88-year-old female history of COPD, elevated right hemidiaphragm, previous episodes of right lower lobe atelectasis/lung collapse status post bronchoscopy found to have blood clots obstructing her right bronchus recently admitted to the hospital in March 2023 with worsening respiratory distress, worsening pleural effusions managed with Tamiflu, antibiotics and diuretics presented to the hospital again with worsening respiratory distress, altered mentation and pulmonary was called for further evaluation and management. CTA on this admission no evidence of pulmonary embolism. Significant improvement in aeration with resolution of the right lower lobe endobronchial occlusion from her recent admission in March. Continues of worsening bilateral pleural effusions moderate to large bilaterally. Evidence of septal thickening concerning for volume overload also noted. CT abdomen concerning for enterocolitis. Afebrile. Neutrophil predominant leukocytosis upon admission improving. Blood gas upon admission showed hypercarbic respiratory failure the pH is 7.0 and pCO2 132.8 needing noninvasive ventilatory therapy. Repeat blood gas from this morning improved with a pH of 7.40 and pCO2 42.6 Recommend to continue cardiology consultation as patient is having recurrent worsening bilateral pleural effusions improving with diuretics consistent with diastolic heart failure with volume overload. Her etiology pleural effusion feels less likely to be primary pulmonary etiology at this point of time. Discussed with the family regarding diagnostic thoracentesis to evaluate for possible malignant etiology however the plan was made to optimize her volume status and will decide on the need for diagnostic thoracentesis pending clinical improvement. On examination no significant wheezing noted. On 2 L saturating 95%. No significant respiratory distress appreciated. Plan: Continue oxygen supplementation to maintain O2 saturation above 90% number Will hold off on performing thoracentesis at this point of time Continue antibiotics for the noted enterocolitis pending final culture results. Continue noninvasive ventilator therapy, BiPAP therapy at 12/6 pending volume optimization Continue flutter valve Will defer the plan for volume optimization to cardiology - Case discussed with cardiology tentative plan was made to initiate on Bumex drip with close follow- up of her renal function and clinical status.
[2024-06-17] MEDS: LACTATED RINGERS 1000ML 250 ML IV (10:14)
[2024-06-17] MEDS: DIGOXIN 0.125MG TABLET 125 MCG PO (11:07)
--- NOTE | 2024-06-17 11:40 | P.CONCA_ITS ---
History of Present Illness History of Present Illness Consult date: 06/17/24 Requesting physician: Hermann Segura Consult reason: atrial fibrillation, congestive heart failure and shortness of breath Chief complaint: AMS, SOA Additional Medical History:: 1. Non-obstructive CAD by [facility], 11/2020, EF 60%, LVEDP 30-35 mm Hg 2. HFpEF, EF 50% by echo, 03/2024 with mild RV dilation and mild reduction in RV function, mild MR 3. Dementia A. residential resident 4. DNR/DNI 5. Recurrent pleural effusions, bilaterally 6. Chronic left bundle branch block 7. Right lung collapse secondary to large blood clot in mainstem bronchus while on DAPT (reportedly had prior DC in past) A. Bronchoscopy, 04/2021, negative cultures and pathology. 8. Choledocholithiasis A. ERCP, 12/2023, Dr. Perze, with multiple stones removed with biliary sphincterotomy, balloon extraction and stent placement B. ERCP, 04/2024, Dr. Perez, large volume choledocholithiasis status post partial/near complete biliary clearance with some impacted stone at ampulla status post larger Nitinol biliary stent placement (10 mm diameter/60 mm length). History of present illness: Kathy Osullivan is a 88-year-old female who presents from [facility] with shortness of breath. Patient is encephalopathic at this time and history was obtained by ED provider, chart review, and family at bedside. Per nursing facility, oxygen saturations were in the 60s at which point they brought her to the hospital. Workup in the ED significant for WBC 20.8, VBG pH 7.0 pCO2 138, phosphorus 7.9, troponin 0.12, BNP 18,700, negative for COVID and influenza. UA highly suggestive of UTI. CTA chest shows worsening by lateral pleural effusions, multifocal opacities suspicious for edema versus pneumonia. CT abdomen/pelvis shows enterocolitis and severe rectal fecal impaction. Patient was initiated on BiPAP with some improvement in VBG. She was also given breathing treatments, steroids, vancomycin, Zosyn, and Lasix 80 mg. Case discussed with ED provider and decision was made to admit patient for COPD exacerbation, hypercapnic respiratory failure, sepsis secondary to enteroc olitis/pneumonia/UTI, NSTEMI, and heart failure exacerbation. The above per Dr. Segura Pt has dementia so most of history is from Daughter and chart. Pt has been hospitalized frequently for CHF and pleural effusions over the last year. These seem to respond/improve with IV diuretics. [facility] Disclaimer: The information contained in this section may have been updated after the patient was seen, as this information can be updated by other users. Medical History (Updated 06/17/24 @ 14:16 by CORI Martines) Respiratory failure with hypercapnia Elevated diaphragm Chronic respiratory failure with hypoxia Collapse, lung Depression Closed head injury Choledocholithiasis Diverticulitis UTI (urinary tract infection) Arthralgia of elbow, left Fall Elevated LFTs CHERRY (acute kidney injury) Thrombocytopenia Anemia Pancreatitis Renal insufficiency Bacterial infection due to Proteus mirabilis Obesity (BMI 30-39.9) Elevated troponin IVCD (intraventricular conduction defect) Severe sepsis with acute organ dysfunction Cough with hemoptysis COPD with acute exacerbation Respiratory failure with hypercapnia Anemia Healthcare-associated pneumonia Fall History of DC (myocardial infarction) Age-related physical debility Overactive bladder Rheumatic arteritis Gastroesophageal reflux disease Heart failure Chronic insomnia Anxiety Major depression in partial remission Dementia Hyperlipidemia Hypertension Surgical History Surgical history unknown Family History Other No significant family history Social History (Updated 06/16/24 @ 13:34 by Marisol Todd RN) Smoking Status: Former smoker tobacco type: cigarettes alcohol intake: never substance use type: denies use and other current occupational status: retired Travel in the last 8 weeks: None housing: care home Have you lived/traveled outside [place] in past 30 days?: No Contact w/someone who lives/traveled outside US past 30 days?: No Exposure to someone with infectious disease in past 14 days?: No Do you have a fever (greater than 100.4 F or 38 C)?: No Have you tested positive for COVID-19: No Exposed to someone with COVID-19 in past 14 days?: No Do you have a sore throat?: No Do you have a cough?: No Do you have any weakness?: No Are you experiencing any nausea/vomitting?: No Do you have any diarrhea?: No Are you experiencing any unusual bleeding?: No Do you have any muscle aches/pain?: No Do you have any abdominal pain?: No Are you experiencing loss of taste or smell?: No Review of Systems Review of Systems Review of systems:: unable to obtain Exam Data for Last 24 hours Vital signs and Labs for Last 24 Hours: Temp Pulse Resp BP Pulse Ox O2 Del Method O2 Flow Rate 100.0 F H 105 H 15 110/45 L 96 Nasal Cannula 2 06/17/24 09:07 06/17/24 11:07 06/17/24 09:07 06/17/24 09:07 06/17/24 11:15 06/17/24 11:15 06/17/24 11:15 FiO2 50 06/16/24 19:08 Laboratory Results - last 24 hr 06/16/24 07:30: Chlamy pneumoniae PCR Not detected, Adenovirus (PCR) Not detected, B. pertussis DNA (PCR) Not detected, Coronavirus OC43 (PCR) Not detected, Coronavirus HKU1 (PCR) Not detected, Coronavirus 229E (PCR) Not detected, SARS-CoV-2 (PCR) Not detected, Coronavirus NL63 (PCR) Not detected, Human Metapneumovir PCR Not detected, Influenza A (H1) PCR Not detected, Influ A (H1N1/09) PCR Not detected, Influenza A (H3) PCR Not detected, Influenza Type A (PCR) Not detected, Influenza Type B (PCR) Not detected, M. pneumoniae (PCR) Not detected, Parainfluenza 1 (PCR) Not detected, Parainfluenza 2 (PCR) Not detected, Parainfluenza 3 (PCR) Not detected, Parainfluenza 4 (PCR) Not detected, RSV (PCR) Not detected, Entero/Rhino (PCR) Not detected 06/16/24 13:45: Troponin I 0.12 H 06/16/24 15:06: VBG pH 7.21 L, VBG pCO2 72.7 H, VBG pO2 93.3 H, VBG HCO3 28.6, VBG Total CO2 30.9 H, VBG O2 Saturation 97.1 H, VBG Base Excess 0.8, VBG Lactic Acid 1.6 06/16/24 15:26: Hemoglobin A1c 5.2, Folate 10.20 06/16/24 19:30: VBG pH 7.40, VBG pCO2 42.6, VBG pO2 34.2, VBG HCO3 26.0, VBG Total CO2 27.3 H, VBG O2 Saturation 73.3 H, VBG Base Excess 1.3, VBG Lactic Acid 3.7 H 06/17/24 05:47: WBC 12.4 H D, RBC 3.73 L, Hgb 9.7 L D, Hct 32.6 L, MCV 87.4, MCH 26.0 L, MCHC 29.8 L, RDW 17.5, Plt Count 227 D, MPV 10.7 H, Neut % (Auto) 87.1 H, Lymph % (Auto) 6.9 L, [place]lan % (Auto) 5.4, Eos % (Auto) 0.0 L, Baso % (Auto) 0.1, Neut # (Auto) 10.8 H, Lymph # (Auto) 0.9, [place]lan # (Auto) 0.7, Eos # (Auto) 0.0, Baso # (Auto) 0.0, Sodium 143, Potassium 4.0, Chloride 100, Carbon Dioxide 37 H, Anion Gap 10.0, BUN 28 H D, Creatinine 1.10 H, Estimated Creat Clear 32, Estimated GFR 47 L, Est GFR ( Amer) 57 L, Glucose 135 H, Calcium 8.6, Phosphorus 4.2 D, Magnesium 2.0 D, Total Bilirubin 0.6, AST 42 H D, ALT 26, Alkaline Phosphatase 72, Total Protein 5.7 L, Albumin 3.3 L D, Globulin 2.4, Albumin/Globulin Ratio 1.4, Triglycerides 105, Cholesterol 173, LDL Cholesterol Direct 96.00 L, VLDL Cholesterol 21, HDL Cholesterol 38 L, Cholesterol/HDL Ratio 4.6 H I & O for Last 24 hours: Intake & Output 06/14/24 06/15/24 06/16/24 06/17/24 11:59 11:59 11:59 11:59 Intake Total 150 / 150 Output Total 2700 / 2700 Balance -2550 / -2550 Weight 134 lb 126 lb 15.78 oz Microbiology Reports for the Last 24 Hours: Microbiology 06/16/24 07:49 Urine,Catheterized Urine Culture - Preliminary Gram Negative Rods 06/16/24 07:39 Blood Blood Culture - Preliminary NO GROWTH AFTER 24 HOURS 06/16/24 07:34 Blood Blood Culture - Preliminary NO GROWTH AFTER 24 HOURS Constitutional Constitutional: no acute distress *Routine Respiratory Exam Respiratory: Present decreased breath sounds and diminished air movement *Routine Cardiovascular Exam Cardiovascular: Present irregularly irregular; Absent murmur, gallop or rubs Meds Home Medications and Allergies Home Medications ?Medication ?Instructions ?Recorded ?Confirmed ?Type bisacodyl 10 mg rectal suppository 10 mg NM DAILYP PRN Constipation 12/11/19 06/16/24 History docusate sodium 250 mg capsule 250 mg PO DAILY 12/11/19 06/16/24 History melatonin 3 mg capsule 3 mg PO HS 12/11/19 06/16/24 History ondansetron HCl 4 mg tablet 4 mg PO Q6HP PRN Nausea And 12/11/19 06/16/24 History (Zofran) Vomiting aspirin 81 mg chewable tablet 81 mg PO DAILY 07/20/21 06/16/24 History clopidogrel 75 mg tablet 75 mg PO DAILY 07/20/21 06/16/24 History sertraline 50 mg tablet 50 mg PO DAILY 07/20/21 06/16/24 History sodium chloride 0.65 % nasal spray 1 spray intranasal BID 02/27/23 06/16/24 History aerosol (Deep Sea Nasal) guaifenesin 100 mg/5 mL oral 200 mg PO Q6HP PRN Congestion 01/11/24 06/16/24 History liquid (Radha-Tussin) ropinirole 2 mg tablet 2 mg PO BID 01/11/24 06/16/24 History sertraline 25 mg tablet 25 mg PO DAILY 01/11/24 06/16/24 History benzonatate 100 mg capsule 100 mg PO TIDP PRN Cough 04/05/24 06/16/24 History gabapentin 100 mg capsule 100 mg PO BID #60 caps 04/06/24 06/16/24 Rx pantoprazole 40 mg tablet,delayed 40 mg PO DAILY 30 days #30 tabs 04/18/24 06/16/24 Rx release hydrocodone 5 mg-acetaminophen 325 1 tab PO BID PRN severe pain #60 05/18/24 06/16/24 Rx mg tablet tabs furosemide 20 mg tablet 20 mg PO DAILY 06/07/24 06/16/24 History ipratropium 0.5 mg-albuterol 3 mg 3 ml inhalation Q6HP PRN Shortness 06/16/24 06/16/24 History (2.5 mg base)/3 mL nebulization Of Breath soln New Prescriptions to Start Prescriptions: Allergies Allergy/AdvReac Type Severity Reaction Status Date / Time alendronate sodium (From Allergy Unknown Unknown Verified 06/07/24 13:00 Fosamax) allergy reaction NSAIDS (Non-Steroidal Allergy Unknown Unknown Verified 06/07/24 13:00 Anti-Inflamma allergy reaction Penicillins Allergy Unknown Unknown Verified 06/07/24 13:00 allergy reaction Assessment and Plan *Assessment and plan (1) Pleural effusion: Status: Acute Category: Medical Code(s): J90 - Pleural effusion, not elsewhere classified (2) Acute on chronic respiratory failure with hypoxia and hypercapnia: Status: Acute Category: Medical Code(s): J96.21 - Acute and chronic respiratory failure with hypoxia; J96.22 - Acute and chronic respiratory failure with hypercapnia (3) Acute on chronic heart failure with preserved ejection fraction (HFpEF): Status: Acute Category: Medical Code(s): I50.33 - Acute on chronic diastolic (congestive) heart failure (4) Dementia: Status: Chronic Qualifiers: Dementia type: associated with other underlying disease Dementia behavioral disturbance: without behavioral disturbance Qualified Code(s): F02.80 - Dementia in other diseases classified elsewhere without behavioral disturbance Category: Medical Code(s): F03.90 - Unspecified dementia, unspecified severity, without behavioral disturbance, psychotic disturbance, mood disturbance, and anxiety (5) Atrial fibrillation with RVR: Status: Acute Category: Medical Code(s): I48.91 - Unspecified atrial fibrillation Plan 1. Acute on chronic respiratory failure with hypoxia and hypercapnia -Improved with supplemental oxygen -Pulmonary following 2. Acute on chronic HFpEF -Echo pending but appears to show EF in the 40-50% range -Continue diuresis but will switch to Bumex drip to see if bilateral pleural effusions will improve -If no improvement in CHF/effusions over the weekend then consider right heart cath and/or thoracentesis next week -Discussed with pulmonary -unable to add GDMT meds due to low BP and prior admissions for UTI 3. Dementia -Patient is DNR/DNI 4. Chronic left bundle branch block 5. New onset atrial fibrillation -Discontinue aspirin and Plavix due to nonobstructive CAD by cath in 2020 -Start Eliquis 2.5 mg twice daily -continue to do digoxin for rate control -BP borderline low so will hold off on BB or CCB 6. Mild elevated troponin likely due to cardiac strain related to CHF exacerbation -No plans for invasive cardiac procedures Will see on Thursday to decide if right heart cath or thoracentesis is needed.
[2024-06-17] MEDS: BUMETANIDE 1MG/4ML VIAL 1 MG IV (12:18)
[2024-06-17] MEDS: BUMETANIDE 10 MG in 0.9 % SODIUM CHLORIDE 60 ML 2.5 MG IV (12:18)
[2024-06-17 18:01] LABS: Lactate Venous 1.3 mmol/L (0.4-2.0); VBG Base Excess 7.8 mmol/L (-2.4-2.3); VBG HCO3 31.3 mmol/L (23-30); VBG Oxygen Saturation 94.7 % (50-70); VBG PCO2 42.9 mmol/L (35-51); VBG PH 7.48 mmol/L (7.31-7.41); VBG PO2 71.3 mmol/L (28-40); VBG Total CO2 32.6 mmol/L (23-27)
--- NOTE | 2024-06-17 18:18 | PC.NURSE ---
arrived by bed from ICU
--- NOTE | 2024-06-17 18:46 | EXP.PN ---
Subjective *Date: 06/17/24 *Time: 18:46 Interval history: Patient's mentation has significantly improved today, still intermittently confused. Continue Bumex drip, follow blood pressures closely. Exam Data for Last 24 hours Vital signs and Labs for Last 24 Hours: Temp Pulse Resp BP Pulse Ox O2 Del Method O2 Flow Rate 100.0 F H 96 H 18 126/61 97 Nasal Cannula 2 06/17/24 16:00 06/17/24 17:55 06/17/24 16:00 06/17/24 16:00 06/17/24 17:55 06/17/24 17:00 06/17/24 17:55 FiO2 50 06/16/24 19:08 Laboratory Results - last 24 hr 06/16/24 07:30: Chlamy pneumoniae PCR Not detected, Adenovirus (PCR) Not detected, B. pertussis DNA (PCR) Not detected, Coronavirus OC43 (PCR) Not detected, Coronavirus HKU1 (PCR) Not detected, Coronavirus 229E (PCR) Not detected, SARS-CoV-2 (PCR) Not detected, Coronavirus NL63 (PCR) Not detected, Human Metapneumovir PCR Not detected, Influenza A (H1) PCR Not detected, Influ A (H1N1/09) PCR Not detected, Influenza A (H3) PCR Not detected, Influenza Type A (PCR) Not detected, Influenza Type B (PCR) Not detected, M. pneumoniae (PCR) Not detected, Parainfluenza 1 (PCR) Not detected, Parainfluenza 2 (PCR) Not detected, Parainfluenza 3 (PCR) Not detected, Parainfluenza 4 (PCR) Not detected, RSV (PCR) Not detected, Entero/Rhino (PCR) Not detected 06/16/24 15:26: Hemoglobin A1c 5.2, Folate 10.20 06/16/24 19:30: VBG pH 7.40, VBG pCO2 42.6, VBG pO2 34.2, VBG HCO3 26.0, VBG Total CO2 27.3 H, VBG O2 Saturation 73.3 H, VBG Base Excess 1.3, VBG Lactic Acid 3.7 H 06/17/24 05:47: WBC 12.4 H D, RBC 3.73 L, Hgb 9.7 L D, Hct 32.6 L, MCV 87.4, MCH 26.0 L, MCHC 29.8 L, RDW 17.5, Plt Count 227 D, MPV 10.7 H, Neut % (Auto) 87.1 H, Lymph % (Auto) 6.9 L, [place] % (Auto) 5.4, Eos % (Auto) 0.0 L, Baso % (Auto) 0.1, Neut # (Auto) 10.8 H, Lymph # (Auto) 0.9, [place] # (Auto) 0.7, Eos # (Auto) 0.0, Baso # (Auto) 0.0, Sodium 143, Potassium 4.0, Chloride 100, Carbon Dioxide 37 H, Anion Gap 10.0, BUN 28 H D, Creatinine 1.10 H, Estimated Creat Clear 32, Estimated GFR 47 L, Est GFR ( Amer) 57 L, Glucose 135 H, Calcium 8.6, Phosphorus 4.2 D, Magnesium 2.0 D, Total Bilirubin 0.6, AST 42 H D, ALT 26, Alkaline Phosphatase 72, Total Protein 5.7 L, Albumin 3.3 L D, Globulin 2.4, Albumin/Globulin Ratio 1.4, Triglycerides 105, Cholesterol 173, LDL Cholesterol Direct 96.00 L, VLDL Cholesterol 21, HDL Cholesterol 38 L, Cholesterol/HDL Ratio 4.6 H 06/17/24 17:48: VBG pH 7.48 H, VBG pCO2 42.9, VBG pO2 71.3 H, VBG HCO3 31.3 H, VBG Total CO2 32.6 H, VBG O2 Saturation 94.7 H, VBG Base Excess 7.8 H, VBG Lactic Acid 1.3 I & O for Last 24 hours: Intake & Output 06/14/24 06/15/24 06/16/24 06/17/24 23:59 23:59 23:59 23:59 Intake Total 50 / 100 585.458 / 585.458 Output Total 1725 / 1950 1350 / 1350 Balance -1675 / -1850 -764.542 / -764.542 Weight 60.781 kg 57.6 kg Microbiology Reports for the Last 24 Hours: Microbiology 06/16/24 07:49 Urine,Catheterized Urine Culture - Preliminary Gram Negative Rods 06/16/24 07:39 Blood Blood Culture - Preliminary NO GROWTH AFTER 24 HOURS 06/16/24 07:34 Blood Blood Culture - Preliminary NO GROWTH AFTER 24 HOURS Constitutional Constitutional: no acute distress *Routine HEENT Exam Head: Present normocephalic Eye: Present EOMI and PERRL ENT: Present mucous membranes moist *Routine Neck Exam Neck: Present supple; Absent lymphadenopathy *Routine Respiratory Exam Respiratory: Present CTA bilaterally *Routine Cardiovascular Exam Cardiovascular: Present RRR *Routine Abdominal Exam Abdominal: Present soft and normoactive bowel sounds; Absent tenderness *Routine Extremities Exam Extremities: Absent cyanosis, clubbing or edema *Routine Skin Exam Skin: Present warm; Absent rash *Routine Neurological Exam Neurological: Present alert Assessment and Plan *Assessment and plan (1) Respiratory failure with hypercapnia: Status: Acute Qualifiers: Chronicity: acute on chronic Qualified Code(s): J96.22 - Acute and chronic respiratory failure with hypercapnia Category: Medical Code(s): J96.92 - Respiratory failure, unspecified with hypercapnia Plan Kathy Osullivan is a 88-year-old female who presents from [facility] with shortness of breath. Patient is encephalopathic at this time and history was obtained by ED provider, chart review, and family at bedside. Per nursing facility, oxygen saturations were in the 60s at which point they brought her to the hospital. Workup in the ED significant for WBC 20.8, VBG pH 7.0 pCO2 138, phosphorus 7.9, troponin 0.12, BNP 18,700, negative for COVID and influenza. UA highly suggestive of UTI. CTA chest shows worsening by lateral pleural effusions, multifocal opacities suspicious for edema versus pneumonia. CT abdomen/pelvis shows enterocolitis and severe rectal fecal impaction. Patient was initiated on BiPAP with some improvement in VBG. She was also given breathing treatments, steroids, vancomycin, Zosyn, and Lasix 80 mg. Case discussed with ED provider and decision was made to admit patient for COPD exacerbation, hypercapnic respiratory failure, sepsis secondary to enterocolitis/pneumonia/UTI, NSTEMI, and heart failure exacerbation. #Acute hypoxic, hypercapnic respiratory failure #Acute metabolic encephalopathy, resolving ? Requiring BiPAP therapy for hypercapnic respiratory failure at this time. ? Secondary to COPD exacerbation, multifocal pneumonia/edema, HFpEF exacerbation, pleural effusions. See separate problems. ? Follow-up full respiratory panel. #COPD exacerbation ? Continue DuoNebs every 6 hours, Pulmicort twice daily. ? Solu-Medrol 40 mg every 12 hours. ? Antibiotics as below. #Sepsis #Community-acquired pneumonia #UTI #Enterocolitis ? CT evidence of pneumonia, enterocolitis, UA highly suggestive of UTI. ? Initial WBC 20.8, with tachypnea and tachycardia. ? WBC improved to 12.4 today. ? Continue Zosyn day 2. Follow-up urine, blood, sputum cultures. ? Urine cultures growing gram-negative rods, pending speciation. Blood cultures NGTD 24 hours. ? Hold off on IV fluids given fluid overload. #HFpEF exacerbation #Large bilateral pleural effusions #NSTEMI, likely type II ? Pleural effusion worsened since March 2024. Suspect for worsening heart failure. ? BNP 18,700 with gross signs of volume overload. ? Troponins 0.15, down trended to 0.12. EKG without acute ischemic changes. Likely demand ischemia in the setting of sepsis, respiratory failure. ? Cardiology consulted, started Bumex drip. May consider right heart cath on Thursday. Follow blood pressures closely as they are currently low but normal. ? Pulmonology consulted, will hold off on thoracentesis for now pending response to Bumex drip. ? Follow-up limited ECHO. ? Follow-up CBC, CMP, BNP in the morning. #Severe rectal fecal impaction ? Resolved with enema. #Anxiety/depression: Hold home sertraline due to encephalopathy. #Restless leg syndrome: Hold home ropinirole due to encephalopathy. DNR/DNI DVT prophylaxis: Lovenox 40 mg
[2024-06-17] MEDS: PANTOPRAZOLE 40MG TABLET 40 MG PO (20:17)
[2024-06-17] MEDS: APIXABAN 5MG TABLET 2.5 MG PO (20:18)
[2024-06-18] VITALS (18 sets, daily range): BP systolic 111–154; BP diastolic 51–77; PULSE 80–99; RESP 14–20; TEMP 36.8–37.6; O2SAT 89–100; BMI 24.7
[2024-06-18] MEDS: IPRATROPIUM/ALBUTEROL 3 ML NEB IH ×4 (00:18→17:53)
[2024-06-18] MEDS: PIPERCILLIN/TAZO 3.375 GM in 0.9 % SODIUM CHLORIDE 50 ML IV ×4 (02:30→20:45)
--- NOTE | 2024-06-18 06:00 | XR_ITS ---
PROCEDURE INFORMATION: Exam: XR Chest Exam date and time: 06/18/2024 6:19 AM Age: 88 years old Clinical indication: Condition or disease; Lung condition and disease; Pneumonia; Additional info: Pneumonia /effusion TECHNIQUE: Imaging protocol: Radiologic exam of the chest. Views: 1 view. COMPARISON: CT ANGIO CHEST PE PROTOCOL 06/16/2024 10:07 AM FINDINGS: Tubes, catheters and devices: There is an enteric tube terminating in the mid gastric body. Lungs: Hazy opacities in the lower lobes favored to represent atelectasis. Superimposed pneumonia is difficult to exclude. Pleural spaces: Bilateral pleural effusions are re-identified. Heart/Mediastinum: Unremarkable. No cardiomegaly. Bones/joints: Unremarkable. IMPRESSION: 1. Bilateral pleural effusions are re-identified. 2. Hazy opacities in the lower lobes favored to represent atelectasis. Superimposed pneumonia is difficult to exclude.
[2024-06-18] MEDS: BUDESONIDE 0.5MG/2ML NEB 0.5 MG IH ×2 (06:34→17:53)
[2024-06-18 07:26] LABS: Basophils % 0.1 % (0.1-2.0); Hematocrit 32.5 % (37.0-47.0); Hemoglobin 9.9 g/dL (12.2-16.2); Lymphocytes # 1.1 K/mm3 (0.7-4.5); Lymphocytes % 11.7 % (10-50); Mean Corpuscular HGB Conc 30.5 g/dL (31.8-35.4); Mean Corpuscular Hemoglobin 25.8 pg (27.0-31.2); Mean Corpuscular Volume 84.6 fl (81-99); Mean Platelet Volume 10.7 fl (7.4-10.4); Monocytes # 0.6 K/mm3 (0.1-1.0); Monocytes % 6.3 % (1.7-9.3); Neutrophils # 7.7 K/mm3 (1.8-7.8); Neutrophils % 81.5 % (37.0-80.0); Platelet Count 225 K/mm3 (142-424); Red Blood Count 3.84 M/mm3 (4.20-5.40); Red Cell Distribution Width 17.5 % (11.5-17.5); White Blood Count 9.5 K/mm3 (4.8-10.8)
[2024-06-18 08:00] LABS: Chloride 95 mmol/L (98-107)
[2024-06-18 08:01] LABS: Albumin Level 3.2 g/dl (3.5-5.0); Potassium 3.2 mmoL/L (3.5-5.1); Sodium 141 mmol/L (136-145)
[2024-06-18 08:03] LABS: Alanine Aminotransferase 22 U/L (12-78); Albumin/Globulin Ratio 1.2 (1.1-1.8); Anion Gap 9.2 mEq/L (5-15); Aspartate Amino Transferase 50 U/L (14-36); Blood Urea Nitrogen 27 mg/dl (7-17); Carbon Dioxide 40 mmol/L (22.0-30.0); Creatinine Clearance Estimated 35 mL/min (50-200); Estimated Glomerular Filt Rate 52 ml/min (>60); GFR (African American) 63 ML/MIN (>60); Globulin 2.7 g/dL (1.3-3.2); Total Protein,Serum 5.9 g/dl (6.3-8.2)
[2024-06-18 08:04] LABS: Alkaline Phosphatase 76 U/L (38-126); Bilirubin,Total 0.6 mg/dl (0.2-1.3); Calcium 8.6 mg/dl (8.4-10.2); Glucose 119 mg/dl (74-100); Magnesium 1.6 mg/dl (1.6-2.3)
[2024-06-18 08:12] LABS: NT Pro Brain Natriuretic Pep. 17900 pg/mL (0-450)
[2024-06-18] MEDS: APIXABAN 5MG TABLET 2.5 MG PO ×2 (09:01→20:45)
[2024-06-18] MEDS: DIGOXIN 0.125MG TABLET 125 MCG PO (09:02)
[2024-06-18] MEDS: METHYLPREDNISOLONE SOD SUCC 40MG VIAL 40 MG IV ×2 (09:03→20:45)
--- NOTE | 2024-06-18 09:54 | PC.NURSE ---
O2 increased to 2 liters due to sustained sats lower than 90 at 1L
[2024-06-18] MEDS: MAGNESIUM SULFATE IN WATER 2 GM/50 ML PIGGYBACK IV ×2 (10:03→10:56)
[2024-06-18] MEDS: POTASSIUM CHLORIDE 20MEQ TAB 40 MEQ PO ×2 (10:03→15:20)
[2024-06-18] MEDS: BUMETANIDE 10 MG in 0.9 % SODIUM CHLORIDE 60 ML 2.5 MG IV (14:19)
--- NOTE | 2024-06-18 15:18 | PC.NURSE ---
SRNA report given to HTincher SRNA due to pt moving from 216 to 204 after status changed from SD to M/S
--- NOTE | 2024-06-18 16:27 | PC.NURSE ---
All patient care and documentation completed by Geovanna CRESPO was completed under my direct supervision. Winifred Toussaint RN
[2024-06-18] MEDS: PANTOPRAZOLE 40MG TABLET 40 MG PO (20:45)
--- NOTE | 2024-06-18 21:58 | P.PN_ITS ---
Subjective *Date: 06/18/24 *Time: 21:58 Interval history: Feeling much better, more conversational today. Net 6.2L output so far with diuresis. Exam Data for Last 24 hours Vital signs and Labs for Last 24 Hours: Temp Pulse Resp BP Pulse Ox O2 Del Method O2 Flow Rate 98.3 F 80 16 125/53 L 96 Nasal Cannula 1.5 06/18/24 19:46 06/18/24 20:00 06/18/24 19:46 06/18/24 19:46 06/18/24 19:46 06/18/24 20:58 06/18/24 20:58 FiO2 50 06/16/24 19:08 Laboratory Results - last 24 hr 06/18/24 06:45: WBC 9.5, RBC 3.84 L, Hgb 9.9 L, Hct 32.5 L, MCV 84.6, MCH 25.8 L , MCHC 30.5 L, RDW 17.5, Plt Count 225, MPV 10.7 H, Neut % (Auto) 81.5 H, Lymph % (Auto) 11.7, [place] % (Auto) 6.3, Eos % (Auto) 0.0 L, Baso % (Auto) 0.1, Neut # (Auto) 7.7, Lymph # (Auto) 1.1, [place] # (Auto) 0.6, Eos # (Auto) 0.0, Baso # (Auto) 0.0, Sodium 141, Potassium 3.2 L, Chloride 95 L, Carbon Dioxide 40 H, Anion Gap 9.2, BUN 27 H, Creatinine 1.00, Estimated Creat Clear 35, Estimated GFR 52 L, Est GFR ( Amer) 63, Glucose 119 H, Calcium 8.6, Magnesium 1.6 D, Total Bilirubin 0.6, AST 50 H, ALT 22, Alkaline Phosphatase 76, NT-Pro-B Natriuret Pep 49808 H, Total Protein 5.9 L, Albumin 3.2 L, Globulin 2.7, Albumin/Globulin Ratio 1.2 I & O for Last 24 hours: Intake & Output 06/15/24 06/16/24 06/17/24 06/18/24 23:59 23:59 23:59 23:59 Intake Total 50 / 100 1125.458 / 1173.458 959.817 / 959.817 Output Total 1725 / 1950 1910 / 2810 4775 / 4775 Balance -1675 / -1850 -784.542 / -1636.542 -3815.183 / -3815.183 Weight 60.781 kg 57.6 kg 57.198 kg Microbiology Reports for the Last 24 Hours: Microbiology 06/16/24 07:39 Blood Blood Culture - Preliminary NO GROWTH AFTER 48 HOURS 06/16/24 07:34 Blood Blood Culture - Preliminary NO GROWTH AFTER 48 HOURS 06/16/24 07:49 Urine,Catheterized Urine Culture - Final Escherichia coli Constitutional Constitutional: no acute distress *Routine HEENT Exam Head: Present normocephalic Eye: Present EOMI and PERRL ENT: Present mucous membranes moist *Routine Neck Exam Neck: Present supple; Absent lymphadenopathy *Routine Respiratory Exam Respiratory: Present CTA bilaterally *Routine Cardiovascular Exam Cardiovascular: Present RRR *Routine Abdominal Exam Abdominal: Present soft and normoactive bowel sounds; Absent tenderness *Routine Extremities Exam Extremities: Absent cyanosis, clubbing or edema *Routine Skin Exam Skin: Present warm; Absent rash *Routine Neurological Exam Neurological: Present alert Assessment and Plan *Assessment and plan (1) Respiratory failure with hypercapnia: Status: Acute Qualifiers: Chronicity: acute on chronic Qualified Code(s): J96.22 - Acute and chronic respiratory failure with hypercapnia Category: Medical Code(s): J96.92 - Respiratory failure, unspecified with hypercapnia Plan Kathy Osullivan is a 88-year-old female who presents from [facility] with shortness of breath. Patient is encephalopathic at this time and history was obtained by ED provider, chart review, and family at bedside. Per nursing facility, oxygen saturations were in the 60s at which point they brought her to the hospital. Workup in the ED significant for WBC 20.8, VBG pH 7.0 pCO2 138, phosphorus 7.9, troponin 0.12, BNP 18,700, negative for COVID and influenza. UA highly suggestive of UTI. CTA chest shows worsening by lateral pleural effusions, multifocal opacities suspicious for edema versus pneumonia. CT abdomen/pelvis shows enterocolitis and severe rectal fecal impaction. Patient was initiated on BiPAP with some improvement in VBG. She was also given breathing treatments, steroids, vancomycin, Zosyn, and Lasix 80 mg. Case discussed with ED provider and decision was made to admit patient for COPD exacerbation, hypercapnic respiratory failure, sepsis secondary to enterocolitis/pneumonia/UTI, NSTEMI, and heart failure exacerbation. #Acute hypoxic, hypercapnic respiratory failure #Acute metabolic encephalopathy, resolving ? Improved with Bipap, hypercapnia likely from low tidal volumes from large pleural effusions. ? Secondary to COPD exacerbation, multifocal pneumonia/edema, HFpEF exacerbation, pleural effusions. See separate problems. ? Respiratory panel normal. #COPD exacerbation ? Continue DuoNebs every 6 hours, Pulmicort twice daily. ? Solu-Medrol 40 mg every 12 hours. ? Antibiotics as below. #Sepsis #Community-acquired pneumonia #UTI #Enterocolitis ? CT evidence of pneumonia, enterocolitis, UA highly suggestive of UTI. ? Initial WBC 20.8, with tachypnea and tachycardia. ? WBC improved to 9.5 today. ? Continue Zosyn day 3. ? Urine cultures growing gram-negative rods, pending speciation. Blood cultures NGTD 24 hours. ? Hold off on IV fluids given fluid overload. #HFrEF exacerbation #Large bilateral pleural effusions #NSTEMI, likely type II ? Pleural effusion worsened since March 2024. Suspect for worsening heart failure. ? BNP 18,700 with gross signs of volume overload. ? Troponins 0.15, down trended to 0.12. EKG without acute ischemic changes. Likely demand ischemia in the setting of sepsis, respiratory failure. ? Cardiology consulted, continue Bumex drip. May consider right heart cath on Thursday. Follow blood pressures closely as they are currently low but normal. ? Pulmonology consulted, will hold off on thoracentesis for now pending response to Bumex drip. - Patient has had impressive 6.2L net output so far. ? Follow-up limited ECHO, prelim shows LVEF 40-50%. ? Follow-up CBC, CMP, BNP in the morning. #Severe rectal fecal impaction ? Resolved with enema. #Anxiety/depression: Hold home sertraline due to encephalopathy. #Restless leg syndrome: Hold home ropinirole due to encephalopathy. DNR/DNI DVT prophylaxis: Lovenox 40 mg
[2024-06-19] VITALS (13 sets, daily range): BP systolic 121–143; BP diastolic 58–66; PULSE 48–99; RESP 16–18; TEMP 36.5–37.2; O2SAT 94–99; BMI 24.0
[2024-06-19] MEDS: PIPERCILLIN/TAZO 3.375 GM in 0.9 % SODIUM CHLORIDE 50 ML IV ×4 (03:14→20:30)
--- NOTE | 2024-06-19 06:00 | XR_ITS ---
PROCEDURE INFORMATION: Exam: XR Chest Exam date and time: 06/19/2024 10:24 AM Age: 88 years old Clinical indication: Other: Pneumonia /effusion TECHNIQUE: Imaging protocol: Radiologic exam of the chest. Views: 1 view. Total images: 1 COMPARISON: CR XR CHEST PORTABLE 06/18/2024 6:19 AM FINDINGS: Lungs: Atelectatic changes noted within both lung bases. Pleural spaces: Left pleural effusion. No evidence of pneumothorax. Heart/Mediastinum: Right paratracheal soft tissue density is again noted and similar to the prior study. The heart is not enlarged. Vasculature: Moderate atherosclerotic disease. Diaphragm: There is nonspecific elevation of the right hemidiaphragm. Bones/joints: Degenerative changes of the glenohumeral and acromioclavicular joints. Other findings: Rounded density overlies the left scapula. IMPRESSION: 1. Right paratracheal soft tissue density is again noted and similar to the prior study. 2. Left pleural effusion. 3. Atelectatic changes noted within both lung bases.
--- NOTE | 2024-06-19 06:18 | PC.NURSE ---
patient has been awake all night
[2024-06-19] MEDS: BUDESONIDE 0.5MG/2ML NEB 0.5 MG IH ×2 (06:29→18:22)
[2024-06-19] MEDS: IPRATROPIUM/ALBUTEROL 3 ML NEB IH ×4 (06:29→23:38)
[2024-06-19 07:55] LABS: Basophils % 0.1 % (0.1-2.0); Hematocrit 37.8 % (37.0-47.0); Hemoglobin 11.5 g/dL (12.2-16.2); Lymphocytes # 1.8 K/mm3 (0.7-4.5); Lymphocytes % 13.9 % (10-50); Mean Corpuscular HGB Conc 30.4 g/dL (31.8-35.4); Mean Corpuscular Hemoglobin 25.7 pg (27.0-31.2); Mean Corpuscular Volume 84.4 fl (81-99); Monocytes # 1.3 K/mm3 (0.1-1.0); Neutrophils # 9.5 K/mm3 (1.8-7.8); Neutrophils % 75.7 % (37.0-80.0); Platelet Count 275 K/mm3 (142-424); Red Blood Count 4.48 M/mm3 (4.20-5.40); Red Cell Distribution Width 17.3 % (11.5-17.5); White Blood Count 12.6 K/mm3 (4.8-10.8)
[2024-06-19 09:10] LABS: Albumin Level 3.8 g/dl (3.5-5.0); Chloride 89 mmol/L (98-107); Sodium 139 mmol/L (136-145)
[2024-06-19 09:11] LABS: Potassium 3.8 mmoL/L (3.5-5.1)
[2024-06-19 09:13] LABS: Alanine Aminotransferase 22 U/L (12-78); Albumin/Globulin Ratio 1.4 (1.1-1.8); Alkaline Phosphatase 83 U/L (38-126); Aspartate Amino Transferase 52 U/L (14-36); Bilirubin,Total 0.8 mg/dl (0.2-1.3); Blood Urea Nitrogen 27 mg/dl (7-17); Creatinine Clearance Estimated 31 mL/min (50-200); Estimated Glomerular Filt Rate 47 ml/min (>60); GFR (African American) 57 ML/MIN (>60); Globulin 2.8 g/dL (1.3-3.2); Total Protein,Serum 6.6 g/dl (6.3-8.2)
[2024-06-19 09:14] LABS: Calcium 8.8 mg/dl (8.4-10.2); Glucose 113 mg/dl (74-100); Magnesium 2.4 mg/dl (1.6-2.3)
[2024-06-19 09:18] LABS: Anion Gap 13.8 mEq/L (5-15)
[2024-06-19 09:20] LABS: NT Pro Brain Natriuretic Pep. 28000 pg/mL (0-450)
[2024-06-19] MEDS: APIXABAN 5MG TABLET 2.5 MG PO ×2 (09:26→20:30)
[2024-06-19] MEDS: predniSONE 20MG TAB 40 MG PO (09:27)
[2024-06-19] MEDS: DIGOXIN 0.125MG TABLET 125 MCG PO (09:27)
[2024-06-19 10:14] LABS: Carbon Dioxide 38 mmol/L (22.0-30.0)
--- NOTE | 2024-06-19 10:40 | P.PN_ITS ---
Subjective *Date: 06/19/24 *Time: 10:40 Medical Exam Vital signs and Labs for Last 24 Hours: Vital Signs Temp Pulse Pulse Resp BP Pulse Ox O2 Del Method 06/19/24 09:27 99 H 06/19/24 08:00 96 H 06/19/24 07:31 99.0 F 61 16 134/58 L 94 L Nasal Cannula 06/19/24 06:29 79 06/19/24 06:29 81 06/19/24 06:29 98 Nasal Cannula 06/19/24 06:17 Nasal Cannula 06/19/24 05:00 Nasal Cannula 06/19/24 04:00 80 06/19/24 04:00 97.9 F 72 18 121/58 L 98 Nasal Cannula 06/19/24 03:00 Nasal Cannula 06/19/24 01:00 Nasal Cannula 06/19/24 00:00 Nasal Cannula 06/19/24 00:00 80 06/19/24 00:00 98.1 F 84 18 128/66 98 06/18/24 23:00 Nasal Cannula 06/18/24 20:58 Nasal Cannula 06/18/24 20:00 06/18/24 20:00 80 06/18/24 19:46 98.3 F 85 16 125/53 L 96 Nasal Cannula 06/18/24 18:46 Nasal Cannula 06/18/24 18:44 Nasal Cannula 06/18/24 18:28 84 06/18/24 17:00 Nasal Cannula 06/18/24 16:00 Nasal Cannula 06/18/24 16:00 90 06/18/24 16:00 98.7 F 88 18 117/62 98 Nasal Cannula 06/18/24 15:00 Nasal Cannula 06/18/24 14:00 98.6 F 89 20 111/61 93 L Nasal Cannula 06/18/24 14:00 93 L Nasal Cannula 06/18/24 13:00 Nasal Cannula 06/18/24 12:00 91 H 06/18/24 12:00 99.7 F H 87 19 127/59 L 94 L Nasal Cannula 06/18/24 11:09 85 06/18/24 11:09 83 06/18/24 11:09 100 Nasal Cannula 06/18/24 11:00 Nasal Cannula O2 Flow Rate 06/19/24 09:27 06/19/24 08:00 06/19/24 07:31 2 06/19/24 06:29 06/19/24 06:29 06/19/24 06:29 2 06/19/24 06:17 1.5 06/19/24 05:00 1.5 06/19/24 04:00 06/19/24 04:00 2 06/19/24 03:00 1.5 06/19/24 01:00 1.5 06/19/24 00:00 1.5 06/19/24 00:00 06/19/24 00:00 1.5 06/18/24 23:00 1.5 06/18/24 20:58 1.5 06/18/24 20:00 1.5 06/18/24 20:00 06/18/24 19:46 1.5 06/18/24 18:46 1.5 06/18/24 18:44 1.5 06/18/24 18:28 06/18/24 17:00 1.5 06/18/24 16:00 1.5 06/18/24 16:00 06/18/24 16:00 1.5 06/18/24 15:00 1.5 06/18/24 14:00 1.5 06/18/24 14:00 1.5 06/18/24 13:00 1.5 06/18/24 12:00 06/18/24 12:00 1.5 06/18/24 11:09 06/18/24 11:09 06/18/24 11:09 2 06/18/24 11:00 2 Intake and Output 06/18/24 06/19/24 06/19/24 23:59 07:59 15:59 Intake Total 392 / 1129.817 522 / 522 Output Total 400 / 4775 1100 / 1100 Balance -8 / -3645.183 -578 / -578 Intake: Intake, Oral Amount 342 / 882 390 / 390 Intake, Total IV Amount 50 / 227 132 / 132 Bumetanide 10 mg In 0.9 % 32 / 32 Sodium Chloride 60 ml @ 2.5 mls /hr IV .Q24H SRINIVASA Rx#:[id number] Pipercillin/Tazo 3.375 gm In 0. 50 / 198 100 / 100 9 % Sodium Chloride 50 ml @ 100 mls/hr IV Q6H SRINIVASA Rx#:[id number] Output: Output, Urine Amount 400 / 4775 1100 / 1100 Other: Number of Unmeasured Voids 0 Number of Bowel Movements 1 Weight 55.52 kg Patient Weight 06/19/24 23:59 Weight 55.52 kg Laboratory Results - last 24 hr 06/19/24 07:23: WBC 12.6 H D, RBC 4.48, Hgb 11.5 L, Hct 37.8, MCV 84.4, MCH 25.7 L, MCHC 30.4 L, RDW 17.3, Plt Count 275, MPV 11.0 H, Neut % (Auto) 75.7, Lymph % (Auto) 13.9, [place] % (Auto) 10.0 H, Eos % (Auto) 0.0 L, Baso % (Auto) 0.1, Neut # (Auto) 9.5 H, Lymph # (Auto) 1.8, [place] # (Auto) 1.3 H, Eos # (Auto) 0.0, Baso # (Auto) 0.0, Sodium 139, Potassium 3.8, Chloride 89 L, Carbon Dioxide 38 H, Anion Gap 13.8, BUN 27 H, Creatinine 1.10 H, Estimated Creat Clear 31, Estimated GFR 47 L, Est GFR ( Amer) 57 L, Glucose 113 H, Calcium 8.8, Magnesium 2.4 H D , Total Bilirubin 0.8, AST 52 H, ALT 22, Alkaline Phosphatase 83, NT-Pro-B Natriuret Pep 76200 H, Total Protein 6.6, Albumin 3.8 D, Globulin 2.8, Albumin/Globulin Ratio 1.4 I & O for Labs for Last 24 Hours: Intake & Output 06/16/24 06/17/24 06/18/24 06/19/24 23:59 23:59 23:59 23:59 Intake Total 50 / 100 1125.458 / 1173.458 959.817 / 1129.817 522 / 522 Output Total 1725 / 1950 1910 / 2810 4775 / 4775 1100 / 1100 Balance -1675 / -1850 -784.542 / -1636.542 -3815.183 / -3645.183 -578 / -578 Weight 60.781 kg 57.6 kg 57.198 kg 55.52 kg Microbiology Reports for the Last 24 Hours: Microbiology 06/17/24 12:57 Nose - Nasal MRSA Culture - Final 06/16/24 07:39 Blood Blood Culture - Preliminary NO GROWTH AFTER 48 HOURS 06/16/24 07:34 Blood Blood Culture - Preliminary NO GROWTH AFTER 48 HOURS 06/16/24 07:49 Urine,Catheterized Urine Culture - Final Escherichia coli The patient's infection will respond to the chosen ABx?: Yes Is the patient receiving the right drug, dose, and route?: Yes Could a more targeted ABx be ordered?: No (E COLI IN URINE CX SENSITIVE, WBC DECREASED FROM ADMISSION.)
[2024-06-19] MEDS: PANTOPRAZOLE 40MG TABLET 40 MG PO (20:30)
--- NOTE | 2024-06-19 21:46 | P.PN_ITS ---
Subjective *Date: 06/19/24 *Time: 21:46 Interval history: Patient confused, agitated this morning but improved into the afternoon. Diuresing well, net -7.7 L so far. Exam Data for Last 24 hours Vital signs and Labs for Last 24 Hours: Temp Pulse Resp BP Pulse Ox O2 Del Method O2 Flow Rate 97.7 F 63 17 128/62 97 Nasal Cannula 2 06/19/24 20:00 06/19/24 20:00 06/19/24 20:00 06/19/24 20:00 06/19/24 20:00 06/19/24 20:00 06/19/24 20:00 FiO2 50 06/16/24 19:08 Laboratory Results - last 24 hr 06/19/24 07:23: WBC 12.6 H D, RBC 4.48, Hgb 11.5 L, Hct 37.8, MCV 84.4, MCH 25.7 L, MCHC 30.4 L, RDW 17.3, Plt Count 275, MPV 11.0 H, Neut % (Auto) 75.7, Lymph % (Auto) 13.9, Bent % (Auto) 10.0 H, Eos % (Auto) 0.0 L, Baso % (Auto) 0.1, Neut # (Auto) 9.5 H, Lymph # (Auto) 1.8, Bent # (Auto) 1.3 H, Eos # (Auto) 0.0, Baso # (Auto) 0.0, Sodium 139, Potassium 3.8, Chloride 89 L, Carbon Dioxide 38 H, Anion Gap 13.8, BUN 27 H, Creatinine 1.10 H, Estimated Creat Clear 31, Estimated GFR 47 L, Est GFR ( Amer) 57 L, Glucose 113 H, Calcium 8.8, Magnesium 2.4 H D , Total Bilirubin 0.8, AST 52 H, ALT 22, Alkaline Phosphatase 83, NT-Pro-B Natriuret Pep 97042 H, Total Protein 6.6, Albumin 3.8 D, Globulin 2.8, Albumin/Globulin Ratio 1.4 I & O for Last 24 hours: Intake & Output 06/16/24 06/17/24 06/18/24 06/19/24 23:59 23:59 23:59 23:59 Intake Total 50 / 100 1125.458 / 1173.458 959.817 / 0568.127 6704 / 1102 Output Total 1725 / 1950 1910 / 2810 4775 / 4775 2550 / 2550 Balance -1675 / -1850 -784.542 / -1636.542 -3815.183 / -3645.183 -1448 / -1448 Weight 60.781 kg 57.6 kg 57.198 kg 55.52 kg Microbiology Reports for the Last 24 Hours: Microbiology 06/17/24 12:57 Nose - Nasal MRSA Culture - Final Constitutional Constitutional: no acute distress *Routine HEENT Exam Head: Present normocephalic Eye: Present EOMI and PERRL ENT: Present mucous membranes moist *Routine Neck Exam Neck: Present supple; Absent lymphadenopathy *Routine Respiratory Exam Respiratory: Present CTA bilaterally *Routine Cardiovascular Exam Cardiovascular: Present RRR *Routine Abdominal Exam Abdominal: Present soft and normoactive bowel sounds; Absent tenderness *Routine Extremities Exam Extremities: Absent cyanosis, clubbing or edema *Routine Skin Exam Skin: Present warm; Absent rash *Routine Neurological Exam Neurological: Present alert Assessment and Plan *Assessment and plan (1) Respiratory failure with hypercapnia: Status: Acute Qualifiers: Chronicity: acute on chronic Qualified Code(s): J96.22 - Acute and chronic respiratory failure with hypercapnia Category: Medical Code(s): J96.92 - Respiratory failure, unspecified with hypercapnia Plan Kathy Osullivan is a 88-year-old female who presents from [facility] with shortness of breath. Patient is encephalopathic at this time and history was obtained by ED provider, chart review, and family at bedside. Per nursing facility, oxygen saturations were in the 60s at which point they brought her to the hospital. Workup in the ED significant for WBC 20.8, VBG pH 7.0 pCO2 138, phosphorus 7.9, troponin 0.12, BNP 18,700, negative for COVID and influenza. UA highly suggestive of UTI. CTA chest shows worsening by lateral pleural effusions, multifocal opacities suspicious for edema versus pneumonia. CT abdomen/pelvis shows enterocolitis and severe rectal fecal impaction. Patient was initiated on BiPAP with some improvement in VBG. She was also given breathing treatments, steroids, vancomycin, Zosyn, and Lasix 80 mg. Case discussed with ED provider and decision was made to admit patient for COPD exacerbation, hypercapnic respiratory failure, sepsis secondary to enterocolitis /pneumonia/UTI, NSTEMI, and heart failure exacerbation. #Acute hypoxic, hypercapnic respiratory failure #Acute metabolic encephalopathy, resolving ? Improved with Bipap, hypercapnia likely from low tidal volumes from large pleural effusions. ? Secondary to COPD exacerbation, multifocal pneumonia/edema, HFpEF exacerbation, pleural effusions. See separate problems. ? Respiratory panel normal. ? Continue DuoNebs every 6 hours, Pulmicort twice daily. ? Antibiotics as below. #Sepsis #Community-acquired pneumonia #UTI #Enterocolitis ? CT evidence of pneumonia, enterocolitis, UA highly suggestive of UTI. ? Initial WBC 20.8, with tachypnea and tachycardia. This has resolved. ? Continue Zosyn day 4. ? Cultures growing E. coli sensitive to Zosyn. ? Hold off on IV fluids given fluid overload. #HFrEF exacerbation #Large bilateral pleural effusions #NSTEMI, likely type II ? Pleural effusion worsened since March 2024. Suspect for worsening heart failure. ? BNP 18,700 with gross signs of volume overload. ? Troponins 0.15, down trended to 0.12. EKG without acute ischemic changes. Likely demand ischemia in the setting of sepsis, respiratory failure. ? Cardiology consulted, continue Bumex drip. May consider right heart cath on Thursday. Follow blood pressures closely as they are currently low but normal. ? Pulmonology consulted, will hold off on thoracentesis for now pending response to Bumex drip. - Patient has had 7.7L net output so far. ? Follow-up limited ECHO, prelim shows LVEF 40-50%. ? Follow-up CBC, CMP, BNP in the morning. #Severe rectal fecal impaction ? Resolved with enema. #Anxiety/depression: Hold home sertraline due to encephalopathy. #Restless leg syndrome: Hold home ropinirole due to encephalopathy. DNR/DNI DVT prophylaxis: Lovenox 40 mg
[2024-06-19] MEDS: BUMETANIDE 10 MG in 0.9 % SODIUM CHLORIDE 60 ML 2.5 MG IV (22:33)
[2024-06-20] VITALS (7 sets, daily range): BP systolic 97–153; BP diastolic 52–63; PULSE 75–90; RESP 17–18; TEMP 36.7–36.8; O2SAT 92–100; BMI 23.6
[2024-06-20] MEDS: PIPERCILLIN/TAZO 3.375 GM in 0.9 % SODIUM CHLORIDE 50 ML IV ×2 (02:50→08:58)
--- NOTE | 2024-06-20 04:13 | PC.NURSE ---
Patient is alert to herself, but is pleasantly confused and quickly forgetful. She has been easy to redirect/reorient this shift and has been cooperative with her care. No further agitation noted this shift, always smiling. Patient was observed to have eyes closed, respirations even and unlabored on 2 L of oxygen via nasal cannula, and no apparent distress for the majority of the night. Repositioning/turning every 2 hours has been performed by staff to avoid further skin breakdown issues and to promote comfort. The patient has complained of soreness in her back and legs during movement; she denies pain at rest. Her legs have remained elevated; heel protectors in place. Bruising was noted on both of the patient's shins. Redness was noted on her bottom and coccyx; an open area is present on her right buttock (new dressing was applied this shift, no bleeding). A black, crusty skin lesion is present on her forehead/approximate to hairline. 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 She was given a full bed bath this morning; catheter care was also performed multiple times this shift. [place] remains intact, and urine output has been measured/documented accordingly. Patient is incontinent of stool; a brief has been utilized for defecation needs. Fluid restriction (1500 mL) remains in place. She has been tolerating a soft mechanical diet well; assist feed. Aspiration precautions taken. Scheduled medications were administered as appropriately per MAY. Bumex drip continues to infuse at 2.5 mL/hr. Upon auscultation of her lungs, crackles were heard bilaterally in the bases. Heart rate is irregular at times and bowel sounds are active. Sinus arrhythmia/normal sinus rhythm/BBB on telemetry. At this time, the patient is resting in bed without any further complaints. No new needs at this time. Bed alarm on. Call light within reach.
--- NOTE | 2024-06-20 06:00 | XR_ITS ---
FINAL REPORT CLINICAL HISTORY: Pneumonia /effusion FINDINGS: PORTABLE CHEST, 1 VIEW COMPARISON: One day earlier FINDINGS: There is elevation of the right hemidiaphragm. The lungs trejo are unchanged . There are small bilateral pleural effusions. There is no pneumothorax. The cardiac silhouette is stable. Interval removal of NG tube. IMPRESSION: No significant change except for removal of NG tube. Reviewed, Interpreted and Dictated by Tawanda Pabon MD Transcribed by Juliette Sorensen Authenticated and . [facility]
[2024-06-20] MEDS: IPRATROPIUM/ALBUTEROL 3 ML NEB IH ×2 (06:43→12:45)
[2024-06-20] MEDS: BUDESONIDE 0.5MG/2ML NEB 0.5 MG IH (06:43)
[2024-06-20 07:01] LABS: Basophils % 0.1 % (0.1-2.0); Eosinophils % 0.1 % (0.1-12.0); Hematocrit 40.8 % (37.0-47.0); Hemoglobin 12.3 g/dL (12.2-16.2); Lymphocytes % 19.3 % (10-50); Mean Corpuscular HGB Conc 30.1 g/dL (31.8-35.4); Mean Corpuscular Hemoglobin 25.9 pg (27.0-31.2); Mean Corpuscular Volume 86.1 fl (81-99); Mean Platelet Volume 11.1 fl (7.4-10.4); Monocytes # 1.2 K/mm3 (0.1-1.0); Monocytes % 11.6 % (1.7-9.3); Neutrophils % 68.5 % (37.0-80.0); Platelet Count 232 K/mm3 (142-424); Red Blood Count 4.74 M/mm3 (4.20-5.40); White Blood Count 10.2 K/mm3 (4.8-10.8)
[2024-06-20 07:12] LABS: Chloride 88 mmol/L (98-107)
[2024-06-20 07:13] LABS: Albumin Level 3.9 g/dl (3.5-5.0); Potassium 3.4 mmoL/L (3.5-5.1); Sodium 139 mmol/L (136-145)
[2024-06-20 07:16] LABS: Alanine Aminotransferase 20 U/L (12-78); Albumin/Globulin Ratio 1.5 (1.1-1.8); Alkaline Phosphatase 74 U/L (38-126); Aspartate Amino Transferase 51 U/L (14-36); Bilirubin,Total 0.8 mg/dl (0.2-1.3); Blood Urea Nitrogen 31 mg/dl (7-17); Calcium 8.5 mg/dl (8.4-10.2); Creatinine Clearance Estimated 30 mL/min (50-200); Estimated Glomerular Filt Rate 47 ml/min (>60); GFR (African American) 57 ML/MIN (>60); Globulin 2.6 g/dL (1.3-3.2); Glucose 96 mg/dl (74-100); Magnesium 2.3 mg/dl (1.6-2.3); Total Protein,Serum 6.5 g/dl (6.3-8.2)
[2024-06-20 07:25] LABS: Anion Gap 12.4 mEq/L (5-15); Carbon Dioxide 42 mmol/L (22.0-30.0)
[2024-06-20 07:55] LABS: NT Pro Brain Natriuretic Pep. 23300 pg/mL (0-450)
[2024-06-20] MEDS: predniSONE 20MG TAB 40 MG PO (08:50)
[2024-06-20] MEDS: DIGOXIN 0.125MG TABLET 125 MCG PO (08:50)
[2024-06-20] MEDS: APIXABAN 5MG TABLET 2.5 MG PO (08:51)
[2024-06-20] MEDS: POTASSIUM CHLORIDE 20MEQ TAB 40 MEQ PO ×2 (08:51→11:47)
--- NOTE | 2024-06-20 10:50 | P.PN_ITS ---
Subjective *Date: 06/20/24 *Time: 10:50 Interval history: No acute respiratory events over the weekend. Pulmonology Exam Inpatient Vital signs and Labs for Last 24 Hours: Temp Pulse Resp BP Pulse Ox O2 Del Method O2 Flow Rate 98.1 F 89 18 108/59 L 96 Nasal Cannula 2 06/20/24 08:00 06/20/24 08:50 06/20/24 08:00 06/20/24 08:00 06/20/24 08:00 06/20/24 09:00 06/20/24 09:00 FiO2 50 06/16/24 19:08 Laboratory Results - last 24 hr 06/20/24 06:12: WBC 10.2, RBC 4.74, Hgb 12.3, Hct 40.8, MCV 86.1, MCH 25.9 L, MCHC 30.1 L, RDW 17.0, Plt Count 232, MPV 11.1 H, Neut % (Auto) 68.5, Lymph % (Auto) 19.3, [place] % (Auto) 11.6 H, Eos % (Auto) 0.1, Baso % (Auto) 0.1, Neut # (Auto) 7.0, Lymph # (Auto) 2.0, [place] # (Auto) 1.2 H, Eos # (Auto) 0.0, Baso # (Auto) 0.0, Sodium 139, Potassium 3.4 L, Chloride 88 L, Carbon Dioxide 42 H*, Anion Gap 12.4, BUN 31 H, Creatinine 1.10 H, Estimated Creat Clear 30, Estimated GFR 47 L, Est GFR ( Amer) 57 L, Glucose 96, Calcium 8.5, Magnesium 2.3, Total Bilirubin 0.8, AST 51 H, ALT 20, Alkaline Phosphatase 74, NT-Pro-B Natriuret Pep 95041 H, Total Protein 6.5, Albumin 3.9, Globulin 2.6, Albumin/Globulin Ratio 1.5 Temp Pulse Resp BP Pulse Ox O2 Del Method O2 Flow Rate 100.0 F H 102 H 15 110/45 L 95 Nasal Cannula 4 06/17/24 09:07 06/17/24 09:19 06/17/24 09:07 06/17/24 09:07 06/17/24 09:07 06/17/24 09:07 06/17/24 09:07 FiO2 50 06/16/24 19:08 Laboratory Results - last 24 hr 06/16/24 07:30: Chlamy pneumoniae PCR Not detected, Adenovirus (PCR) Not detected, B. pertussis DNA (PCR) Not detected, Coronavirus OC43 (PCR) Not detected, Coronavirus HKU1 (PCR) Not detected, Coronavirus 229E (PCR) Not detected, SARS-CoV-2 (PCR) Not detected 06/16/24 07:30: SARS-CoV-2 (PCR) Not detected, Coronavirus NL63 (PCR) Not detected, Human Metapneumovir PCR Not detected, Influenza A (H1) PCR Not detected, Influ A (H1N1/09) PCR Not detected, Influenza A (H3) PCR Not detected, Influenza Type A (PCR) Not detected, Influenza A Untype (PCR) Not detected, Influenza Type B (PCR) Not detected 06/16/24 07:30: Influenza Type B (PCR) Not detected, M. pneumoniae (PCR) Not detected, Parainfluenza 1 (PCR) Not detected, Parainfluenza 2 (PCR) Not detected, Parainfluenza 3 (PCR) Not detected, Parainfluenza 4 (PCR) Not detected, RSV (PCR) Not detected, Entero/Rhino (PCR) Not detected 06/16/24 08:13: VBG pH 7.27 L, VBG pCO2 57.8 H, VBG pO2 66.0 H, VBG HCO3 26.1, VBG Total CO2 27.8 H, VBG O2 Saturation 94.6 H, VBG Base Excess -0.8, VBG Lactic Acid 2.5 H 06/16/24 10:35: Troponin I 0.12 H 06/16/24 13:45: Troponin I 0.12 H 06/16/24 15:06: VBG pH 7.21 L, VBG pCO2 72.7 H, VBG pO2 93.3 H, VBG HCO3 28.6, VBG Total CO2 30.9 H, VBG O2 Saturation 97.1 H, VBG Base Excess 0.8, VBG Lactic Acid 1.6 06/16/24 15:26: Hemoglobin A1c 5.2, Folate 10.20 06/16/24 19:30: VBG pH 7.40, VBG pCO2 42.6, VBG pO2 34.2, VBG HCO3 26.0, VBG Total CO2 27.3 H, VBG O2 Saturation 73.3 H, VBG Base Excess 1.3, VBG Lactic Acid 3.7 H 06/17/24 05:47: WBC 12.4 H D, RBC 3.73 L, Hgb 9.7 L D, Hct 32.6 L, MCV 87.4, MCH 26.0 L, MCHC 29.8 L, RDW 17.5, Plt Count 227 D, MPV 10.7 H, Neut % (Auto) 87.1 H, Lymph % (Auto) 6.9 L, [place] % (Auto) 5.4, Eos % (Auto) 0.0 L, Baso % (Auto) 0.1, Neut # (Auto) 10.8 H, Lymph # (Auto) 0.9, [place] # (Auto) 0.7, Eos # (Auto) 0.0, Baso # (Auto) 0.0, Sodium 143, Potassium 4.0, Chloride 100, Carbon Dioxide 37 H, Anion Gap 10.0, BUN 28 H D, Creatinine 1.10 H, Estimated Creat Clear 32, Estimated GFR 47 L, Est GFR ( Amer) 57 L, Glucose 135 H, Calcium 8.6, Phosphorus 4.2 D, Magnesium 2.0 D, Total Bilirubin 0.6, AST 42 H D, ALT 26, Alkaline Phosphatase 72, Total Protein 5.7 L, Albumin 3.3 L D, Globulin 2.4, Albumin/Globulin Ratio 1.4, Triglycerides 105, Cholesterol 173, LDL Cholesterol Direct 96.00 L, VLDL Cholesterol 21, HDL Cholesterol 38 L, Cholesterol/HDL Ratio 4.6 H I & O for Labs for Last 24 Hours: Intake & Output 06/17/24 06/18/24 06/19/24 06/20/24 23:59 23:59 23:59 23:59 Intake Total 1125.458 / 1173.458 959.817 / 8500.843 4238.583 / 1365.583 243 / 243 Output Total 1910 / 2810 4775 / 4775 2850 / 3050 400 / 400 Balance -784.542 / -1636.542 -3815.183 / -3645.183 -1667.417 / -1684.417 -157 / -157 Weight 126 lb 15.78 oz 126 lb 1.6 oz 122 lb 6.41 oz 120 lb 1.6 oz Intake & Output 06/14/24 06/15/24 06/16/24 06/17/24 23:59 23:59 23:59 23:59 Intake Total 50 / 100 50 / 50 Output Total 1725 / 1950 975 / 975 Balance -1675 / -1850 -925 / -925 Weight 134 lb 126 lb 15.78 oz Microbiology Reports for the Last 24 Hours: Microbiology 06/16/24 07:39 Blood Blood Culture - Preliminary NO GROWTH AFTER 4 DAYS 06/16/24 07:34 Blood Blood Culture - Preliminary NO GROWTH AFTER 4 DAYS 06/17/24 12:57 Nose - Nasal MRSA Culture - Final Microbiology 06/16/24 07:49 Urine,Catheterized Urine Culture - Preliminary Gram Negative Rods 06/16/24 07:39 Blood Blood Culture - Preliminary NO GROWTH AFTER 24 HOURS 06/16/24 07:34 Blood Blood Culture - Preliminary NO GROWTH AFTER 24 HOURS Constitutional: Present mild distress Head: Present normocephalic and atraumatic ENT: Present normal exam, normal oropharynx and mucous membranes moist Neck: Present normal inspection and full ROM Respiratory: Present respiratory distress and able to speak in complete sentences; Absent wheezes or crackles Cardiac: Present S1/S2, Tachycardia and radial pulses present GI: Present soft and distention; Absent tenderness or guarding Rectal (female): Present deferred (female): Present deferred Skin: Present intact; Absent cyanosis or jaundice Neuro: Present alert and awake; Absent oriented x 3 Extremities: Present normal inspection; Absent clubbing or cyanosis Psychiatric: Present normal affect and cooperative Assessment and Plan *Assessment and plan (1) Respiratory failure with hypercapnia: Status: Acute Qualifiers: Chronicity: acute on chronic Qualified Code(s): J96.22 - Acute and chronic respiratory failure with hypercapnia Category: Medical Code(s): J96.92 - Respiratory failure, unspecified with hypercapnia (2) Pleural effusion: Status: Acute Category: Medical Code(s): J90 - Pleural effusion, not elsewhere classified (3) Acute hypoxic respiratory failure: Status: Acute Category: Medical Code(s): J96.01 - Acute respiratory failure with hypoxia Plan Mr. Osullivan is a 88-year-old female history of COPD, elevated right hemidiaphragm, previous episodes of right lower lobe atelectasis/lung collapse status post bronchoscopy found to have blood clots obstructing her right bronchus recently admitted to the hospital in March 2023 with worsening respiratory distress, worsening pleural effusions managed with Tamiflu, antibiotics and diuretics presented to the hospital again with worsening resp iratory distress, altered mentation and pulmonary was called for further evaluation and management. CTA on this admission no evidence of pulmonary embolism. Significant improvement in aeration with resolution of the right lower lobe endobronchial occlusion from her recent admission in March. Continues of worsening bilateral pleural effusions moderate to large bilaterally. Evidence of septal thickening concerning for volume overload also noted. CT abdomen concerning for enterocolitis. Afebrile. Neutrophil predominant leukocytosis upon admission improving. Blood gas upon admission showed hypercarbic respiratory failure the pH is 7.0 and pCO2 132.8 needing noninvasive ventilatory therapy. Repeat blood gas from this morning improved with a pH of 7.40 and pCO2 42.6 Recommend to continue cardiology consultation as patient is having recurrent worsening bilateral pleural effusions improving with diuretics consistent with diastolic heart failure with volume overload. Her etiology pleural effusion feels less likely to be primary pulmonary etiology at this point of time. Discussed with the family regarding diagnostic thoracentesis to evaluate for possible malignant etiology however the plan was made to optimize her volume status and will decide on the need for diagnostic thoracentesis pending clinical improvement. On initial examination no significant wheezing noted. On 2 L saturating 95%. No significant respiratory distress appreciated. Interval update: Continued to receive Bumex drip, net negative volume status, cardiology following. Hemodynamically stable. Renal function stable. Chest x-ray showed improving pleural effusions near complete resolution of the right-sided pleural effusion with small left pleural effusion. Subsequent blood gases did not show any evidence of hypercarbia, patient has not been receiving NIV/BiPAP over the weekend. Plan: Continue oxygen supplementation to maintain O2 saturation above 90% number, wean as tolerated Will hold off on performing thoracentesis at this point of time Antibiotics can be weaned to levofloxacin to complete a total of 5-day course from pulmonary standpoint. Patient also receiving antibiotics for her E. coli UTI and enterocolitis Continue flutter valve # Thank you for involving pulmonary in this patient care. Will continue to follow.
--- NOTE | 2024-06-20 13:20 | EXP.CARD.PN ---
Subjective Subjective Date: 06/20/24 Time: 09:00 Principal diagnosis: acute on chronic HFpEF Interval history: This is an 88-year-old white female who was admitted to the hospital with acute on chronic HFpEF. She has been diuresed over the weekend with a Bumex drip. She has diuresed over 8 L and her shortness of breath has significantly improved. She denies any chest pain or pressure this morning. She denies any lower extremity edema. She denies any fever, chills, nausea, vomiting, diarrhea, PND orthopnea. She does have intermittent confusion but is able to answer all of my questions appropriately this morning. Exam Data for Last 24 hours Vital signs and Labs for Last 24 Hours: Temp Pulse Resp BP Pulse Ox O2 Del Method O2 Flow Rate 98.2 F 76 18 113/52 L 100 Nasal Cannula 2 06/20/24 12:00 06/20/24 12:45 06/20/24 12:00 06/20/24 12:00 06/20/24 12:00 06/20/24 12:39 06/20/24 12:39 FiO2 50 06/16/24 19:08 Laboratory Results - last 24 hr 06/20/24 06:12: WBC 10.2, RBC 4.74, Hgb 12.3, Hct 40.8, MCV 86.1, MCH 25.9 L, MCHC 30.1 L, RDW 17.0, Plt Count 232, MPV 11.1 H, Neut % (Auto) 68.5, Lymph % (Auto) 19.3, [place] % (Auto) 11.6 H, Eos % (Auto) 0.1, Baso % (Auto) 0.1, Neut # (Auto) 7.0, Lymph # (Auto) 2.0, [place] # (Auto) 1.2 H, Eos # (Auto) 0.0, Baso # (Auto) 0.0, Sodium 139, Potassium 3.4 L, Chloride 88 L, Carbon Dioxide 42 H*, Anion Gap 12.4, BUN 31 H, Creatinine 1.10 H, Estimated Creat Clear 30, Estimated GFR 47 L, Est GFR ( Amer) 57 L, Glucose 96, Calcium 8.5, Magnesium 2.3, Total Bilirubin 0.8, AST 51 H, ALT 20, Alkaline Phosphatase 74, NT-Pro-B Natriuret Pep 39276 H, Total Protein 6.5, Albumin 3.9, Globulin 2.6, Albumin/Globulin Ratio 1.5 I & O for Last 24 hours: Intake & Output 06/17/24 06/18/24 06/19/24 06/20/24 23:59 23:59 23:59 23:59 Intake Total 1125.458 / 1173.458 959.817 / 3032.515 1914.583 / 1365.583 243 / 243 Output Total 1910 / 2810 4775 / 4775 2850 / 3050 400 / 400 Balance -784.542 / -1636.542 -3815.183 / -3645.183 -1667.417 / -1684.417 -157 / -157 Weight 126 lb 15.78 oz 126 lb 1.6 oz 122 lb 6.41 oz 120 lb 1.6 oz Microbiology Reports for the Last 24 Hours: Microbiology 06/16/24 07:39 Blood Blood Culture - Preliminary NO GROWTH AFTER 4 DAYS 06/16/24 07:34 Blood Blood Culture - Preliminary NO GROWTH AFTER 4 DAYS Constitutional Constitutional: no acute distress and average body habitus *Routine HEENT Exam Head: Present normocephalic and atraumatic ENT: Present mucous membranes moist *Routine Neck Exam Neck: Present supple, full ROM and normal carotid upstroke; Absent JVD, carotid bruit or lymphadenopathy *Routine Respiratory Exam Respiratory: Present CTA bilaterally, normal respiratory effort, able to speak in complete sentences and symmetric chest movement *Routine Cardiovascular Exam Cardiovascular: Present RRR, Normal S1 and Normal S2; Absent murmur or gallop *Routine Abdominal Exam Abdominal: Present soft and normoactive bowel sounds; Absent tenderness, distended or organomegaly *Routine Extremities Exam Extremities: Present full ROM, pulses intact and normal capillary refill; Absent cyanosis, clubbing or edema *Routine Skin Exam Skin: Present intact and warm; Absent erythema *Routine Neurological Exam Neurological: Present alert, oriented X3 and CN II-XII intact; Absent sensory deficit or motor deficit Routine Psychiatric Exam Psychiatric: Present normal affect Progress Note: A&P Assessment and plan (1) Acute on chronic heart failure with preserved ejection fraction (HFpEF): Status: Acute (2) Atrial fibrillation with RVR: Status: Acute (3) Non-ST elevation CT (NSTEMI): Status: Acute (4) Respiratory failure with hypercapnia: Status: Acute (5) Pleural effusion: Status: Acute (6) Acute hypoxic respiratory failure: Status: Acute (7) AMS (altered mental status): Status: Acute (8) CAD (coronary artery disease): Status: Chronic (9) Left bundle branch block: Status: Acute (10) Hyperlipidemia: Status: Chronic (11) Hypertension: Status: Chronic Assessment and Plan Assessment and Plan for All Diagnoses:: Plan: 1. The patient was admitted to the hospital with acute on chronic HFpEF. She has been diuresed over the weekend with IV Bumex drip. She diuresed over 8 L. The patient did have large bilateral pleural effusions on admission. These are now small with diuresis. The patient is feeling much better. Will stop the IV Bumex drip and switch her over to Bumex 1 mg p.o. daily for continued diuresis. 2. Add spironolactone 25 mg p.o. daily for diuresis as well and her hypokalemia. 3. The patient is now more euvolemic so we will add Jardiance 10 mg p.o. daily for HFpEF. 4. The patient was in atrial fibrillation with RVR. She is currently on digoxin for rate control. She is rate controlled and on Eliquis for long-term anticoagulation. 5. No beta-jere at this time for atrial fibrillation because of her lower blood pressure. Will try to get this added on an outpatient basis if her blood pressure improves. 6. No LESLI/ARB/Arni due to her low blood pressure. Will try to get this added on an outpatient basis if her blood pressure fluids. 7. The patient does have dementia. She resides at a residential. She is intermittently confused. 8. The patient did have an elevated troponin consistent with a type II non-STEMI. She would benefit from an outpatient ischemic evaluation once she is discharged from the hospital. Continue aspirin 81 mg daily. Stop Plavix. 9. Her LDL goal is less than 55. Her LDL is 96. She is on a statin. 10. No further recommendations at this time from a cardiac standpoint. The patient can be discharged home today with the following cardiac medications: Aspirin 81 mg daily, Eliquis 2.5 mg p.o. twice daily, Bumex 1 mg daily, Jardiance 10 mg daily, spironolactone 25 mg daily, digoxin 0.125 mg daily. 11. The patient will need to follow-up in cardiology clinic at the end of this week with Dr. Harrington. Thank you for the opportunity to help her to spend the care of this patient. All recommendations and orders are per Dr. Ochoa.
[2024-06-20] MEDS: ASPIRIN EC 81MG TABLET 81 MG PO (13:47)
[2024-06-20] MEDS: BUMETANIDE 1 MG TABLET PO (13:47)
[2024-06-20] MEDS: SPIRONOLACTONE 25MG TABLET 25 MG PO (13:47)
[2024-06-20] MEDS: EMPAGLIFLOZIN 10MG TABLET 10 MG PO (13:56)
--- NOTE | 2024-06-20 14:36 | P.DS_ITS ---
General Admission date:: 06/16/24 HPI HPI HPI: Kathy Osullivan is a 88-year-old female who presents from [facility] with shortness of breath. Patient is encephalopathic at this time and history was obtained by ED provider, chart review, and family at bedside. Per nursing facility, oxygen saturations were in the 60s at which point they brought her to the hospital. Workup in the ED significant for WBC 20.8, VBG pH 7.0 pCO2 138, phosphorus 7.9, troponin 0.12, BNP 18,700, negative for COVID and influenza. UA highly suggestive of UTI. CTA chest shows worsening by lateral pleural effusions, multifocal opacities suspicious for edema versus pneumonia. CT abdomen/pelvis shows enterocolitis and severe rectal fecal impaction. Patient was initiated on BiPAP with some improvement in VBG. She was also given breathing treatments, steroids, vancomycin, Zosyn, and Lasix 80 mg. Case discussed with ED provider and decision was made to admit patient for COPD exacerbation, hypercapnic respiratory failure, sepsis secondary to enterocolitis/pneumonia/UTI, NSTEMI, and heart failure exacerbation. Hospital Course Hospital Course Hospital Course: Kathy Osullivan is a 88-year-old female who presents from [facility] with shortness of breath. Patient is encephalopathic at this time and history was obtained by ED provider, chart review, and family at bedside. Per nursing facility, oxygen saturations were in the 60s at which point they brought her to the hospital. Workup in the ED significant for WBC 20.8, VBG pH 7.0 pCO2 138, phosphorus 7.9, troponin 0.12, BNP 18,700, negative for COVID and influenza. UA highly suggestive of UTI. CTA chest shows worsening by lateral pleural effusions, multifocal opacities suspicious for edema versus pneumonia. CT abdomen/pelvis shows enterocolitis and severe rectal fecal impaction. Patient was initiated on BiPAP with some improvement in VBG. She was also given breathing treatments, steroids, vancomycin, Zosyn, and Lasix 80 mg. Case discussed with ED provider and decision was made to admit patient for COPD exacerbation, hypercapnic respiratory failure, sepsis secondary to enterocolitis/pneumonia/UTI, NSTEMI, and heart failure exacerbation. #Acute hypoxic, hypercapnic respiratory failure #Acute metabolic encephalopathy ? Initial VBG pH 7.0, pCO2 132. Improved with initial Bipap and breathing treatments. Hypercapnia likely from low tidal volumes from large pleural effusions. ? Secondary to COPD exacerbation, multifocal pneumonia/edema, HFpEF exacerbation, pleural effusions. See separate problems. ? Respiratory panel normal. #Sepsis #Community-acquired pneumonia #UTI #Enterocolitis ? CT evidence of pneumonia, enterocolitis, UA highly suggestive of UTI. ? Initial WBC 20.8, with tachypnea and tachycardia. This has resolved. ? Clinically improved with Zosyn for 5 days. Urine culture growing E. coli sensitive to ceftriaxone and thus cefdinir. ? Discharged with cefdinir 300 mg twice daily for 2 more days. ? Given recurrent sepsis from UTIs, would recommend weekly urine analysis and screen for UTI symptoms. #HFpEF exacerbation #Large bilateral pleural effusions #NSTEMI, type II ? Bilateral pleural effusiona worsened since March 2024. BNP 18,700 with gross signs of volume overload. ? Troponins 0.15, down trended to 0.12. EKG without acute ischemic changes. Likely demand ischemia in the setting of sepsis, respiratory failure. ? Cardiology consulted, started Bumex drip with significant improvement in volume status, pleural effusions. Had net total -8 L output. ? Pulmonology consulted, did not recommend thoracentesis for pleural effusions given significant improvement with diuretics. ? ECHO showed LVEF 50%. ? Discharged with Bumex 1 mg, spironolactone 25 mg. ? Will follow-up with cardiology, pulmonology within 2 weeks. #A-fib ? New onset, in the setting of sepsis, pneumonia. ? Cardiology consulted, discharged with digoxin 125 mcg, Eliquis 2.5 mg twice daily. ? Currently rate controlled. #Severe rectal fecal impaction ? Resolved with enema. ? MiraLAX daily. #Polypharmacy #Anxiety/depression: Patient did not require sertraline during admission. Decreased sertraline from 75 mg to 25 mg. #Restless leg syndrome: Did not require Requip, gabapentin during admission. Discontinued. Total time spent on discharge: 32 minutes on chart review, counseling, documentation, and direct care with patient. Exam Data for Last 24 hours Vital signs and Labs for Last 24 Hours: Temp Pulse Resp BP Pulse Ox O2 Del Method O2 Flow Rate 98.2 F 76 18 113/52 L 100 Nasal Cannula 2 06/20/24 12:00 06/20/24 12:45 06/20/24 12:00 06/20/24 12:00 06/20/24 12:00 06/20/24 14:35 06/20/24 14:35 FiO2 50 06/16/24 19:08 Laboratory Results - last 24 hr 06/20/24 06:12: WBC 10.2, RBC 4.74, Hgb 12.3, Hct 40.8, MCV 86.1, MCH 25.9 L, MCHC 30.1 L, RDW 17.0, Plt Count 232, MPV 11.1 H, Neut % (Auto) 68.5, Lymph % (Auto) 19.3, [place] % (Auto) 11.6 H, Eos % (Auto) 0.1, Baso % (Auto) 0.1, Neut # (Auto) 7.0, Lymph # (Auto) 2.0, [place] # (Auto) 1.2 H, Eos # (Auto) 0.0, Baso # (Auto) 0.0, Sodium 139, Potassium 3.4 L, Chloride 88 L, Carbon Dioxide 42 H*, Anion Gap 12.4, BUN 31 H, Creatinine 1.10 H, Estimated Creat Clear 30, Estimated GFR 47 L, Est GFR ( Amer) 57 L, Glucose 96, Calcium 8.5, Magnesium 2.3, Total Bilirubin 0.8, AST 51 H, ALT 20, Alkaline Phosphatase 74, NT-Pro-B Natriuret Pep 87905 H, Total Protein 6.5, Albumin 3.9, Globulin 2.6, Albumin/Globulin Ratio 1.5 I & O for Last 24 hours: Intake & Output 06/17/24 06/18/24 06/19/24 06/20/24 23:59 23:59 23:59 23:59 Intake Total 1125.458 / 1173.458 959.817 / 5687.138 3304.583 / 1365.583 363 / 363 Output Total 1910 / 2810 4775 / 4775 2850 / 3050 400 / 400 Balance -784.542 / -1636.542 -3815.183 / -3645.183 -1667.417 / -1684.417 -37 / - 37 Weight 57.6 kg 57.198 kg 55.52 kg 54.476 kg Microbiology Reports for the Last 24 Hours: Microbiology 06/16/24 07:39 Blood Blood Culture - Preliminary NO GROWTH AFTER 4 DAYS 06/16/24 07:34 Blood Blood Culture - Preliminary NO GROWTH AFTER 4 DAYS Constitutional Constitutional: no acute distress *Routine HEENT Exam Head: Present normocephalic Eye: Present EOMI and PERRL ENT: Present mucous membranes moist *Routine Neck Exam Neck: Present supple; Absent lymphadenopathy *Routine Respiratory Exam Respiratory: Present CTA bilaterally *Routine Cardiovascular Exam Cardiovascular: Present RRR *Routine Abdominal Exam Abdominal: Present soft and normoactive bowel sounds; Absent tenderness *Routine Extremities Exam Extremities: Absent cyanosis, clubbing or edema *Routine Skin Exam Skin: Present warm; Absent rash *Routine Neurological Exam Neurological: Present alert Results Data Completed and Pending Labs on day of discharge: Labs from last 24 hours 06/20/24 06:12 WBC 10.2 RBC 4.74 Hgb 12.3 Hct 40.8 MCV 86.1 MCH 25.9 L MCHC 30.1 L RDW 17.0 Plt Count 232 MPV 11.1 H Neut % (Auto) 68.5 Lymph % (Auto) 19.3 [place] % (Auto) 11.6 H Eos % (Auto) 0.1 Baso % (Auto) 0.1 Neut # (Auto) 7.0 Lymph # (Auto) 2.0 [place] # (Auto) 1.2 H Eos # (Auto) 0.0 Baso # (Auto) 0.0 Sodium 139 Potassium 3.4 L Chloride 88 L Carbon Dioxide 42 H* Anion Gap 12.4 BUN 31 H Creatinine 1.10 H Estimated Creat Clear 30 Estimated GFR 47 L Est GFR ( Amer) 57 L Glucose 96 Calcium 8.5 Magnesium 2.3 Total Bilirubin 0.8 AST 51 H ALT 20 Alkaline Phosphatase 74 NT-Pro-B Natriuret Pep 27384 H Total Protein 6.5 Albumin 3.9 Globulin 2.6 Albumin/Globulin Ratio 1.5 Preliminary micro results at discharge 06/16/24 07:39 Blood Culture - Preliminary Blood NO GROWTH AFTER 4 DAYS 06/16/24 07:34 Blood Culture - Preliminary Blood NO GROWTH AFTER 4 DAYS DS: Diagnosis Discharge Diagnosis (1) Acute on chronic heart failure with preserved ejection fraction (HFpEF): Status: Acute Code(s): I50.33 - Acute on chronic diastolic (congestive) heart failure (2) Atrial fibrillation with RVR: Status: Acute Code(s): I48.91 - Unspecified atrial fibrillation (3) Non-ST elevation ME (NSTEMI): Status: Acute Code(s): I21.4 - Non-ST elevation (NSTEMI) myocardial infarction (4) Respiratory failure with hypercapnia: Status: Acute Code(s): J96.92 - Respiratory failure, unspecified with hypercapnia Qualifiers: Chronicity: acute on chronic Qualified Code(s): J96.22 - Acute and chronic respiratory failure with hypercapnia (5) Pleural effusion: Status: Acute Code(s): J90 - Pleural effusion, not elsewhere classified (6) Acute hypoxic respiratory failure: Status: Acute Code(s): J96.01 - Acute respiratory failure with hypoxia (7) AMS (altered mental status): Status: Acute Code(s): R41.82 - Altered mental status, unspecified (8) CAD (coronary artery disease): Status: Chronic Code(s): I25.10 - Atherosclerotic heart disease of [place] coronary artery without angina pectoris Qualifiers: Coronary Disease-Associated Artery/Lesion type: [place] artery [place] vs. transplanted heart: [place] heart Associated angina: without angina Qualified Code(s): I25.10 - Atherosclerotic heart disease of [place] coronary artery without angina pectoris (9) Left bundle branch block: Status: Acute Code(s): I44.7 - Left bundle-branch block, unspecified (10) Hyperlipidemia: Status: Chronic Code(s): E78.5 - Hyperlipidemia, unspecified Qualifiers: Hyperlipidemia type: mixed hyperlipidemia Qualified Code(s): E78.2 - Mixed hyperlipidemia (11) Hypertension: Status: Chronic Code(s): I10 - Essential (primary) hypertension Qualifiers: Hypertension type: primary hypertension Qualified Code(s): I10 - Essential (primary) hypertension Meds Home Medications and Allergies Home Medications ?Medication ?Instructions ?Recorded ?Confirmed ?Type bisacodyl 10 mg rectal suppository 10 mg [place] DAILYP PRN Constipation 12/11/19 06/16/24 History docusate sodium 250 mg capsule 250 mg PO DAILY 12/11/19 06/16/24 History ondansetron HCl 4 mg tablet 4 mg PO Q6HP PRN Nausea And 12/11/19 06/16/24 History (Zofran) Vomiting aspirin 81 mg chewable tablet 81 mg PO DAILY 07/20/21 06/16/24 History clopidogrel 75 mg tablet 75 mg PO DAILY 07/20/21 06/16/24 History sodium chloride 0.65 % nasal spray 1 spray intranasal BID 02/27/23 06/16/24 History aerosol ([place] Nasal) guaifenesin 100 mg/5 mL oral 200 mg PO Q6HP PRN Congestion 01/11/24 06/16/24 History liquid (Radha-Tussin) sertraline 25 mg tablet 25 mg PO DAILY 01/11/24 06/16/24 History benzonatate 100 mg capsule 100 mg PO TIDP PRN Cough 04/05/24 06/16/24 History pantoprazole 40 mg tablet,delayed 40 mg PO DAILY 30 days #30 tabs 04/18/24 06/16/24 Rx release hydrocodone 5 mg-acetaminophen 325 1 tab PO BID PRN severe pain #60 05/18/24 06/16/24 Rx mg tablet tabs ipratropium 0.5 mg-albuterol 3 mg 3 ml inhalation Q6HP PRN Shortness 06/16/24 06/16/24 History (2.5 mg base)/3 mL nebulization Of Breath soln apixaban 5 mg tablet (Eliquis) 2.5 mg (1/2 x 5 mg) PO BID 30 days 06/20/24 Rx #30 tabs bumetanide 1 mg tablet 1 mg PO DAILY 30 days #30 tabs 06/20/24 Rx cefdinir 300 mg capsule 300 mg PO BID 2 days #4 caps 06/20/24 Rx digoxin 125 mcg (0.125 mg) tablet 125 mcg PO DAILY 30 days #30 tabs 06/20/24 Rx spironolactone 25 mg tablet 25 mg PO DAILY 30 days #30 tabs 06/20/24 Rx New Prescriptions to Start Prescriptions: janetteban [Eliquis] Hermann Segura bumetanide Colton,Hermann cefdinir Colton,Hermann digoxin Colton,Hermann spironolactone Hermann Segura Allergies Allergy/AdvReac Type Severity Reaction Status Date / Time alendronate sodium (From Allergy Unknown Unknown Verified 06/07/24 13:00 Fosamax) allergy reaction NSAIDS (Non-Steroidal Allergy Unknown Unknown Verified 06/07/24 13:00 Anti-Inflamma allergy reaction Penicillins Allergy Unknown Unknown Verified 06/07/24 13:00 allergy reaction Discharge Plan Disposition Patient Disposition: er Intermediate Care Fac Condition: Fair Discharge Order Discharge Orders: Discharge Order (Routine); Ordered 06/20/24 Ordered By: Hermann Segura Follow up Plan Follow up with: Bertram Haq PA [Physician Flaker Operator] - 06/27/24 Shaina Lopez MD [Physician] - 06/27/24 Prescriptions/Medication Reconciliation: New spironolactone 25 mg Tablet 25 mg PO DAILY 30 Days Qty: 30 0RF bumetanide 1 mg Tablet 1 mg PO DAILY 30 Days Qty: 30 0RF digoxin 125 mcg (0.125 mg) Tablet 125 mcg PO DAILY 30 Days Qty: 30 0RF Eliquis 5 mg Tablet 2.5 mg PO BID 30 Days Qty: 30 0RF cefdinir 300 mg capsule 300 mg PO BID 2 Days Qty: 4 0RF Continued bisacodyl 10 mg suppository 10 mg RC DAILYP PRN (Reason: Constipation) ondansetron HCl [Zofran] 4 mg tablet 4 mg PO Q6HP PRN (Reason: Nausea And Vomiting) docusate sodium 250 mg capsule 250 mg PO DAILY benzonatate 100 mg capsule 100 mg PO TIDP PRN (Reason: Cough) [place] Nasal 0.65 % aerosol,spray 1 spray intranasal BID hydrocodone-acetaminophen 5-325 mg tablet 1 tab PO BID PRN (Reason: severe pain) Qty: 60 0RF sertraline 25 mg tablet 25 mg PO DAILY Rx Instructions: Give with 50mg tablet to make 75mg dose guaifenesin [Radha-Tussin] 100 mg/5 mL Liquid 200 mg PO Q6HP PRN (Reason: Congestion) pantoprazole 40 mg Tablet,Delayed Release (Dr/Ec) 40 mg PO DAILY 30 Days Qty: 30 0RF ipratropium-albuterol 0.5 mg-3 mg(2.5 mg base)/3 mL solution for nebulization 3 ml inhalation Q6HP PRN (Reason: Shortness Of Breath) clopidogrel 75 MG tablet 75 mg PO DAILY aspirin 81 MG tablet,chewable 81 mg PO DAILY Discontinued melatonin 3 mg capsule 3 mg PO HS furosemide 20 mg tablet 20 mg PO DAILY gabapentin 100 mg capsule 100 mg PO BID Qty: 60 5RF ropinirole 2 mg tablet 2 mg PO BID sertraline 50 MG tablet 50 mg PO DAILY Rx Instructions: Give with 25mg tablet to make 75mg dose Problem Reconciliation Problems Reviewed?: Yes Patient Discharge Instructions Print Language: Italian Providers Primary Care Provider: Robin Hay Admit Provider: Hermann Segura Attending Provider: Hermann Segura
--- NOTE | 2024-06-20 14:40 | PC.NURSE ---
Aox 1 with confusion, turn every two hours, f/c in place, bed alarm active, from [facility], consult to Cardiology, Pulmonary, Card[facility] soft diet, 20g L fa SL, 02-2L NC sats in the upper 90's.
--- NOTE | 2024-06-20 15:07 | PC.NURSE ---
f/c removed per Md. verbal.
--- NOTE | 2024-06-20 15:52 | PC.NURSE ---
Report called to [facility] and also to the ambulance service.
== END 2024-06-20 16:45 | DRG 280 ==
LOC: ER 11:27 → ICU 12:07 → 2ND 06-17 17:18
PROVIDERS: Internal Medicine Pulmonary Disease; Admitting Provider Student in an Organized Health Care Education/Training Program; Emergency Provider Emergency Medicine; PCP Family Medicine; Visit Provider Student in an Organized Health Care Education/Training Program
DX: I11.0 Hypertensive heart disease with heart failure (principal); A41.9 Sepsis, unspecified organism; I21.A1 Myocardial infarction type 2; I50.33 Acute on chronic diastolic (congestive) heart failure; G93.41 Metabolic encephalopathy; J96.22 Acute and chronic respiratory failure with hypercapnia; J18.9 Pneumonia, unspecified organism; N39.0 Urinary tract infection, site not specified; J44.1 Chronic obstructive pulmonary disease with (acute) exacerbation; I48.91 Unspecified atrial fibrillation; I25.2 Old myocardial infarction; Z88.0 Allergy status to penicillin; Z79.899 Other long term (current) drug therapy; Z87.891 Personal history of nicotine dependence; Z88.8 Allergy status to other drugs, medicaments and biological substances; E78.5 Hyperlipidemia, unspecified; K52.9 Noninfective gastroenteritis and colitis, unspecified; F41.8 Other specified anxiety disorders; G25.81 Restless legs syndrome
CPT/HCPCS: 36415; 51702; 70450; 71045; 71275; 74177; 80053; 80061; 81001; 82550; 82746; 82803; 83036; 83605; 83735; 83880; 84100; 84436; 84443; 84484; 85007; 85025; 85378; 85610; 85730; 86140; 87040; 87081; 87086; 87088; 87186; 87633; 87636; 93005; 93308; 94640; 94761; 99291; J1160; J1650; J1939; J1940; J2543; J2919; J3372; J3475; J7120; J7613; J7620; Q9967

== ENCOUNTER 2024-06-29 11:44 | Outpatient (CLI) | payer MEDICARE, MEDICAID, SELFPAY ==
[2024-06-29 12:29] LABS: Basophils # 0.1 K/mm3 (0-0.2); Basophils % 0.3 % (0.1-2.0); Eosinophils % 0.2 % (0.1-12.0); Hematocrit 37.9 % (37.0-47.0); Hemoglobin 11.3 g/dL (12.2-16.2); Lymphocytes # 2.9 K/mm3 (0.7-4.5); Lymphocytes % 15.3 % (10-50); Mean Corpuscular HGB Conc 29.8 g/dL (31.8-35.4); Mean Corpuscular Hemoglobin 26.4 pg (27.0-31.2); Mean Corpuscular Volume 88.6 fl (81-99); Mean Platelet Volume 10.8 fl (7.4-10.4); Monocytes # 1.5 K/mm3 (0.1-1.0); Monocytes % 7.9 % (1.7-9.3); Neutrophils # 14.4 K/mm3 (1.8-7.8); Neutrophils % 75.7 % (37.0-80.0); Platelet Count 300 K/mm3 (142-424); Red Blood Count 4.28 M/mm3 (4.20-5.40); Red Cell Distribution Width 17.2 % (11.5-17.5); White Blood Count 19.1 K/mm3 (4.8-10.8)
[2024-06-29 12:32] LABS: MANUAL DIFFERENTIAL MANUAL DIFFERENTIAL (MANUAL DIFF)
[2024-06-29 12:51] LABS: Lymphocytes % 16 % (10-50); Monocytes % 8 % (2-9); Neutrophils % 76 % (42-76); Total Cells Counted 100
[2024-06-29 12:52] LABS: Platelet Estimate Normal; RBC Morphology Normal
[2024-06-29 13:46] LABS: Chloride 95 mmol/L (98-107); Potassium 4.4 mmoL/L (3.5-5.1); Sodium 136 mmol/L (136-145)
[2024-06-29 13:49] LABS: Anion Gap 13.4 mEq/L (5-15); Blood Urea Nitrogen 24 mg/dl (7-17); Carbon Dioxide 32 mmol/L (22.0-30.0); Estimated Glomerular Filt Rate 94 ml/min (>60); GFR (African American) 114 ML/MIN (>60)
[2024-06-29 13:50] LABS: Calcium 9.1 mg/dl (8.4-10.2); Glucose 117 mg/dl (74-100)
== END 2024-06-29 23:59 | disposition home or self-care (01) ==
LOC: LAB 11:46
PROVIDERS: PCP Family Medicine; Visit Provider Nurse Practitioner Family
DX: I25.10 Atherosclerotic heart disease of native coronary artery without angina pectoris (principal); D64.9 Anemia, unspecified
CPT/HCPCS: 36415; 80048; 85007; 85025; 85027

== ENCOUNTER 2024-06-30 08:36 | Outpatient (CLI) | payer MEDICARE, MEDICAID, SELFPAY ==
[2024-06-30 08:55] LABS: Microscopic, Urine URINE MICROSCOPIC (MICROSCOPIC)
[2024-06-30 09:10] LABS: Appearance,Urine CLEAR (Clear); Bilirubin,Urine Negative (Negative); Blood, Urine Negative (Negative); Color,Urine YELLOW (Yellow); Glucose,Urine (UA) Negative (Negative); Ketones,Urine Negative (Negative); Leukocyte Esterase,Urine 1+ (Negative); Nitrate,Urine POSITIVE (Negative); Protein,Urine Negative (Negative); Specific Gravity, Urine 1.015 (1.005-1.030)
[2024-06-30 09:23] LABS: Bacteria,Urine 4+ /lpf
== END 2024-06-30 23:59 | disposition home or self-care (01) ==
LOC: LAB.DROPOF 08:37
PROVIDERS: PCP Family Medicine; Visit Provider Family Medicine
DX: R74.8 Abnormal levels of other serum enzymes (principal); B96.1 Klebsiella pneumoniae [K. pneumoniae] as the cause of diseases classified elsewhere
CPT/HCPCS: 81001; 87086; 87088; 87186

== ENCOUNTER 2024-08-19 08:15 | Outpatient (CLI) | payer MEDICARE, MEDICAID, SELFPAY ==
[2024-08-19 09:21] LABS: Chol/HDL Ratio 3.8 (1-3.5); Cholesterol 100 mg/dl (140-200); HDL Cholesterol 26 mg/dl (40-60); Triglycerides 125 mg/dl (30-150); VLDL Cholesterol 25 mg/dL (0-40)
[2024-08-19 09:31] LABS: Direct LDL Cholesterol 58.19 mg/dL (100-129)
== END 2024-08-19 23:59 | disposition home or self-care (01) ==
PROVIDERS: PCP Family Medicine; Visit Provider Nurse Practitioner Family
DX: E78.5 Hyperlipidemia, unspecified (principal); I50.9 Heart failure, unspecified
CPT/HCPCS: 36415; 80061; 80162